=== PATIENT | female | born 1965 | race Caucasian/White ===

== ENCOUNTER 2022-07-19 08:49 | Outpatient (REF) | payer OTHER, SELFPAY ==
[2022-07-19 11:32] LABS: Hematocrit 42.4 % (37.0-47.0); Hemoglobin 13.7 g/dl (12.0-16.0); Mean Corpuscular HGB Conc 32.3 g/dl (31.0-35.0); Mean Corpuscular Hemoglobin 29.5 pg (27.0-33.0); Mean Corpuscular Volume 91.4 fL (80.0-98.0); Mean Platelet Volume 9.1 fL (9.4-12.3); Platelet Count 498 X10*3/uL (160-400); Red Blood Count 4.64 X10*6/uL (4.20-5.50); Red Cell Distribution Width 12.7 % (11.0-16.0); White Blood Count 7.6 X10*3/uL (4.8-10.8)
[2022-07-19 12:00] LABS: Alanine Aminotransferase 30 U/L (0-31); Albumin Level 4.5 g/dL (3.5-5.0); Alkaline Phosphatase 100 U/L (39-117); Anion Gap 16 (12-20); Aspartate Amino Transferase 24 U/L (5-31); Bilirubin Total 0.3 mg/dL (0.0-1.0); Blood Urea Nitrogen 13 mg/dL (9-16); Calcium 9.8 mg/dL (8.4-10.2); Carbon Dioxide 25 mmol/L (22-29); Chloride 104 mmol/L (96-108); Cholesterol 227 mg/dL; Estimated Glomerular Filt Rate > 60; Glucose Fasting 96 mg/dL (60-99); HDL Cholesterol 93 mg/dL; LDL Cholesterol Calculated 114 mg/dl; Magnesium 1.9 mg/dL (1.6-2.6); Phosphorus 3.4 mg/dL (2.7-4.5); Potassium 4.7 mmol/L (3.3-5.1); Sodium 140 mmol/L (135-145); Total Protein 7.4 g/dL (6.5-8.0); Triglycerides 102 mg/dL
[2022-07-19 12:03] LABS: TSH reflex Free T4 0.91 uIU/mL (0.32-4.0)
== END 2022-07-19 08:50 | disposition home or self-care (01) ==
LOC: HO.HMGCLDS 08:49
PROVIDERS: PCP Hospitalist; Visit Provider Hospitalist
DX: Z00.00 Encounter for general adult medical examination without abnormal findings (principal); K21.9 Gastro-esophageal reflux disease without esophagitis
CPT/HCPCS: 36415; 80053; 80061; 83735; 84100; 84443; 85027

== ENCOUNTER 2022-08-23 08:33 | Outpatient (REF) | payer OTHER, SELFPAY ==
[2022-08-23 11:22] LABS: Hematocrit 41.4 % (37.0-47.0); Mean Corpuscular HGB Conc 33.8 g/dl (31.0-35.0); Mean Corpuscular Volume 88.7 fL (80.0-98.0); Mean Platelet Volume 8.9 fL (9.4-12.3); Platelet Count 467 X10*3/uL (160-400); Red Blood Count 4.67 X10*6/uL (4.20-5.50); Red Cell Distribution Width 12.3 % (11.0-16.0); White Blood Count 6.4 X10*3/uL (4.8-10.8)
== END 2022-08-23 08:34 | disposition home or self-care (01) ==
LOC: HO.HMGCLDS 08:33
PROVIDERS: PCP Hospitalist; Visit Provider Hospitalist
DX: R79.89 Other specified abnormal findings of blood chemistry (principal)
CPT/HCPCS: 36415; 85027

== ENCOUNTER 2022-09-06 11:03 | Outpatient (REF) | payer OTHER, SELFPAY ==
[2022-09-06 13:59] LABS: MANUAL DIFF FLAG NO
[2022-09-06 14:08] LABS: Basophils Absolute Auto 0.1 X10*3/uL (0.0-0.2); Basophils Percent Auto 0.8 % (0-2); Eosinophils Absolute Auto 0.1 X10*3/uL (0.0-0.4); Eosinophils Percent Auto 1.6 % (0-4); Hematocrit 41.8 % (37.0-47.0); Hemoglobin 13.9 g/dl (12.0-16.0); Imm Gran Abs Auto 0.02 X10*3/uL (0.00-0.03); Imm Gran Pct Auto 0.3 % (0.0-0.4); Lymphocytes Absolute Auto 1.7 X10*3/uL (1.2-4.9); Lymphocytes Percent Auto 23.2 % (20-40); Mean Corpuscular HGB Conc 33.3 g/dl (31.0-35.0); Mean Corpuscular Hemoglobin 29.4 pg (27.0-33.0); Mean Corpuscular Volume 88.6 fL (80.0-98.0); Mean Platelet Volume 8.7 fL (9.4-12.3); Monocytes Absolute Auto 0.4 X10*3/uL (0.1-1.2); Monocytes Percent Auto 5.8 % (2-11); Neutrophils Absolute Auto 5.1 x10*3/uL (2.0-8.3); Neutrophils Percent Auto 68.3 % (45-73); Platelet Count 470 X10*3/uL (160-400); Red Blood Count 4.72 X10*6/uL (4.20-5.50); Red Cell Distribution Width 12.2 % (11.0-16.0); White Blood Count 7.4 X10*3/uL (4.8-10.8)
[2022-09-06 14:55] LABS: Anion Gap 15 (12-20); Blood Urea Nitrogen 7 mg/dL (9-16); Calcium 9.8 mg/dL (8.4-10.2); Carbon Dioxide 26 mmol/L (22-29); Chloride 99 mmol/L (96-108); Estimated Glomerular Filt Rate > 60; Glucose Random 90 mg/dL (60-115); Potassium 4.5 mmol/L (3.3-5.1); Sodium 135 mmol/L (135-145)
[2022-09-06 15:01] LABS: TSH reflex Free T4 0.67 uIU/mL (0.32-4.0)
== END 2022-09-06 11:04 | disposition home or self-care (01) ==
LOC: HO.WFDLDS 11:03
PROVIDERS: Visit Provider Family Medicine
DX: Z00.00 Encounter for general adult medical examination without abnormal findings (principal); R79.89 Other specified abnormal findings of blood chemistry
CPT/HCPCS: 36415; 80048; 84443; 85025

== ENCOUNTER 2022-11-20 10:55 | Outpatient (REF) | payer OTHER, SELFPAY ==
[2022-11-20 11:45] LABS: Baso%MD 1.1 %; Eos%MD 2.1 %; Hematocrit 40.2 % (37.0-47.0); Hemoglobin 13.5 g/dl (12.0-16.0); IG%MD 0.4 %; Lymph%MD 26.5 %; Mean Corpuscular HGB Conc 33.6 g/dl (31.0-35.0); Mean Corpuscular Hemoglobin 29.5 pg (27.0-33.0); Mean Platelet Volume 8.4 fL (9.4-12.3); Neut%MD 61.9 %; Platelet Count 429 X10*3/uL (160-400); Red Blood Count 4.57 X10*6/uL (4.20-5.50); Red Cell Distribution Width 13.1 % (11.0-16.0); White Blood Count 7.2 X10*3/uL (4.8-10.8)
[2022-11-20 12:26] LABS: Band Neutrophils Percent 0 % (3-5); Eosinophils Absolute Manual 0.2 X10*3/uL (0.0-0.4); Eosinophils Percent Manual 3 % (0-4); Lymphocytes Absolute Manual 1.6 X10*3/uL (1.2-4.9); Lymphocytes Percent Manual 22 % (20-40); Monocytes Absolute Manual 0.6 X10*3/uL (0.1-1.2); Monocytes Percent Manual 9 % (2-11); Neutrophils Absolute Manual 4.8 X10*3/uL (2.0-8.3); Neutrophils Percent Manual 66 % (45-73); Platelet Estimate NORMAL (NORMAL); Platelet Morphology Comment NORMAL; RBC Morphology NORMAL
== END 2022-11-20 10:56 | disposition home or self-care (01) ==
LOC: HO.LAB 10:55
PROVIDERS: PCP Family Medicine; Visit Provider Internal Medicine Medical Oncology
DX: D75.839 Thrombocytosis, unspecified (principal); R79.89 Other specified abnormal findings of blood chemistry
CPT/HCPCS: 36415; 81219; 81270; 81279; 81339; 85007; 85027

== ENCOUNTER 2022-11-28 09:39 | Outpatient (REF) | payer OTHER, SELFPAY ==
[2022-11-28 11:39] LABS: Appearance Urine Clear; Color Urine Yellow; Glucose Urine UA Negative (Negative); Leukocyte Esterase Urine Negative (Negative); Nitrite Urine Negative (Negative); Specific Gravity - Urine <= 1.005 (1.005-1.025); Urine Blood Negative (Negative); Urine Ketones Negative (Negative); Urine Protein Negative (Neg-Trace)
[2022-11-28 12:08] LABS: Creatinine Urine 30.16 mg/dL; Microalbum/Creatinine Ratio Ur 23.2 ug/mg cr
[2022-11-28 12:44] LABS: Alanine Aminotransferase 27 U/L (0-31); Albumin Level 4.4 g/dL (3.5-5.0); Alkaline Phosphatase 104 U/L (39-117); Anion Gap 13 (12-20); Aspartate Amino Transferase 22 U/L (5-31); Bilirubin Total 0.4 mg/dL (0.0-1.0); Blood Urea Nitrogen 8 mg/dL (9-16); Calcium 9.7 mg/dL (8.4-10.2); Carbon Dioxide 26 mmol/L (22-29); Chloride 98 mmol/L (96-108); Cholesterol 239 mg/dL; Estimated Glomerular Filt Rate > 60; Glucose Fasting 90 mg/dL (60-99); HDL Cholesterol 88 mg/dL; LDL Cholesterol Calculated 129 mg/dl; Potassium 4.9 mmol/L (3.3-5.1); Sodium 132 mmol/L (135-145); TSH reflex Free T4 0.75 uIU/mL (0.32-4.0); Total Protein 7.1 g/dL (6.5-8.0); Triglycerides 114 mg/dL
== END 2022-11-28 09:40 | disposition home or self-care (01) ==
LOC: HO.HMGCLDS 09:39
PROVIDERS: PCP Family Medicine; Visit Provider Family Medicine
DX: Z00.00 Encounter for general adult medical examination without abnormal findings (principal); I10 Essential (primary) hypertension
CPT/HCPCS: 36415; 80053; 80061; 81003; 82043; 84443

== ENCOUNTER 2022-12-13 11:26 | Outpatient (REF) | payer OTHER, SELFPAY ==
--- NOTE | ~2022-12-13 | MM_ITS ---
EXAMINATION: MM SCREENING DIGITAL BREAST TOMOSYNTHESIS, BILATERAL CLINICAL INFORMATION: Screening. Asymptomatic. The lifetime risk of breast cancer based on the Tyrer-Cuzick Model is 3.7%. COMPARISON: Mammography: May 18, 2017 and studies dating back to November 07, 2012 TECHNIQUE: Digital breast tomosynthesis is performed in both the craniocaudal and mediolateral oblique views along with computer-aided detection (CAD). Synthesized 2D images are generated from the tomosynthesis. FINDINGS: There are scattered areas of fibroglandular density (ACR BI-RADS breast composition Category b). There are no significant masses, abnormal calcifications, or other abnormalities. There is a stable retroareolar circumscribed left breast lesion. MM/MM tomosynthesis screening BI IMPRESSION: No significant changes from prior exam. ASSESSMENT: BI-RADS 1: Negative RECOMMENDATION: Routine annual mammography screening. This patient's information was entered into a reminder system with a target due date for their next mammogram.
== END 2022-12-13 11:27 | disposition home or self-care (01) ==
LOC: HO.MAMMO 11:26
PROVIDERS: PCP Family Medicine; Visit Provider Family Medicine
DX: Z12.31 Encounter for screening mammogram for malignant neoplasm of breast (principal)
CPT/HCPCS: 77063; 77067

== ENCOUNTER 2023-01-11 15:00 | Outpatient (REF) | payer OTHER, SELFPAY ==
[2023-01-11 15:14] LABS: MANUAL DIFF FLAG NO
[2023-01-11 15:28] LABS: Basophils Absolute Auto 0.1 X10*3/uL (0.0-0.2); Basophils Percent Auto 0.7 % (0-2); Eosinophils Absolute Auto 0.3 X10*3/uL (0.0-0.4); Eosinophils Percent Auto 2.3 % (0-4); Hematocrit 40.9 % (37.0-47.0); Hemoglobin 14.2 g/dl (12.0-16.0); Imm Gran Abs Auto 0.04 X10*3/uL (0.00-0.03); Imm Gran Pct Auto 0.4 % (0.0-0.4); Lymphocytes Absolute Auto 2.7 X10*3/uL (1.2-4.9); Lymphocytes Percent Auto 25.5 % (20-40); Mean Corpuscular HGB Conc 34.7 g/dl (31.0-35.0); Mean Corpuscular Hemoglobin 30.7 pg (27.0-33.0); Mean Corpuscular Volume 88.3 fL (80.0-98.0); Mean Platelet Volume 8.4 fL (9.4-12.3); Monocytes Absolute Auto 0.7 X10*3/uL (0.1-1.2); Monocytes Percent Auto 6.2 % (2-11); Neutrophils Absolute Auto 6.9 x10*3/uL (2.0-8.3); Neutrophils Percent Auto 64.9 % (45-73); Platelet Count 494 X10*3/uL (160-400); Red Blood Count 4.63 X10*6/uL (4.20-5.50); Red Cell Distribution Width 12.8 % (11.0-16.0); White Blood Count 10.7 X10*3/uL (4.8-10.8)
[2023-01-11 15:52] LABS: Alanine Aminotransferase 32 U/L (0-31); Albumin Level 4.6 g/dL (3.5-5.0); Alkaline Phosphatase 101 U/L (39-117); Anion Gap 19 (12-20); Aspartate Amino Transferase 24 U/L (5-31); Bilirubin Total 0.2 mg/dL (0.0-1.0); Blood Urea Nitrogen 10 mg/dL (9-16); Carbon Dioxide 23 mmol/L (22-29); Chloride 99 mmol/L (96-108); Estimated Glomerular Filt Rate > 60; Glucose Random 96 mg/dL (60-115); Potassium 4.8 mmol/L (3.3-5.1); Sodium 136 mmol/L (135-145); Total Protein 7.3 g/dL (6.5-8.0)
== END 2023-01-11 15:01 | disposition home or self-care (01) ==
LOC: HO.LAB 15:00
PROVIDERS: PCP Family Medicine; Visit Provider Internal Medicine Medical Oncology
DX: D75.839 Thrombocytosis, unspecified (principal)
CPT/HCPCS: 36415; 80053; 85025

== ENCOUNTER 2023-06-08 08:53 | Outpatient (AMB) | payer OTHER, SELFPAY ==
[2023-06-08 10:00] VITALS: BP 160/90; PULSE 95; TEMP 36.3; O2SAT 95; BMI 36.7
--- NOTE | 2023-06-08 10:00 | AM.OFFWIN_ITS ---
Intake Vital Signs 06/08/23 10:00 Height 5 ft Weight 188 lb BMI 36.7 BP 160/90 H Blood Pressure Location Lt brachial Position Sitting Pulse 95 Pulse Source Pulse Oximeter Temp 97.4 F Pulse Oximetry (%) 95 Oxygen Delivery Method Room Air Intake Visit Reasons: EP/Sinus, difficulty breathing (MASKED) Intake Note: pt is here today for EP/Sinus, difficulty breathing Patient Tobacco Use Status: Current everyday Tobacco user Allergies Seasonal Allergies Allergy (Severe, Verified 06/08/23 10:01) Itchy Eyes lisinopril Adverse Reaction (Severe, Verified 06/08/23 10:01) Cough pregabalin [From Lyrica] Adverse Reaction (Severe, Verified 06/08/23 10:01) Shortness of Breath celecoxib [From Celebrex] Adverse Reaction (Verified 06/08/23 10:01) Hypertension varenicline [From Chantix] Adverse Reaction (Verified 06/08/23 10:01) Depression Do you need a note to return to daycare/school/sports/work: No HPI HPI Comments History of Present Illness Details This is a 57-year-old female who presents to the office today for sick visit. Patient complaining of chest congestion, sinus pain/ pressure, and hudson ateral otalgia x5 days. Patient has been utilizing Robitussin DM so she has not been coughing much but feels as though she has a lot of congestion in her chest. She reports some mild difficulty breathing and some wheezing. [facility] Medical History Arthritis Back pain Generalized headaches GERD (gastroesophageal reflux disease) HTN (hypertension) Hyperlipidemia Hypersomnia Lyme disease Numbness and tingling of left leg Snoring TMJ (dislocation of temporomandibular joint) Tremors of nervous system Surgical History History of laparoscopy History of salpingo-oophorectomy Hx of arthroscopy Hx of cervical spine surgery Hx of colonoscopy Hx of endoscopy Hx of hysterectomy, total Hx of knee surgery Hx of shoulder surgery Hx of tubal ligation S/P cervical spinal fusion Family History Father Heart disease Cancer Prostate cancer Mother Dementia Congestive heart failure Social History (Reviewed 01/25/23 @ 14:06 by MATTY Smith Housing: House Alcohol intake: current Patient Tobacco Use Status: Current everyday Tobacco user Cigarettes Per Day: 3 e-Cigarette/Vaping Use: Never Used Second Hand Smoke Exposure: No service: No Current occupational status: disabled Current occupational exposures/hazards: No Cognitive needs: No Hearing needs: No Vision needs: No Review of Systems Const All systems reviewed & are unremarkable except as noted in HPI and below Reports no additional complaints Eyes Reports no additional complaints ENT Reports no additional complaints Card Reports no additional complaints Resp Reports no additional complaints GI Reports no additional complaints Reports no additional complaints Musc Reports no additional complaints Skin/Breast Reports system reviewed and no additional complaints, except as documented Neuro Reports no additional complaints Psych Reports no additional complaints Endo Reports no additional complaints Yaw/Lymph Reports no additional complaints Aller/Immun Reports no additional complaints Physical Exam Vital Signs: Last Vital Signs Temp 97.4 F 06/08/23 10:00 Pulse 95 06/08/23 10:00 BP 160/90 H 06/08/23 10:00 Pulse Ox 95 06/08/23 10:00 Oxygen Delivery Method Room Air 06/08/23 10:00 BMI result Body Mass Index 36.7 Const Other: Vital signs reviewed. Constitutional: Non-toxic appearing. No acute distress. Well-developed and well-nourished. HEENT: Normocephalic and atraumatic. Mild tympanic membrane bulging bilaterally but no erythema. External auditory canals without erythema or edema bilaterally. Moist mucous membranes. No pharyngeal erythema or exudates. Skin: Warm and dry. No rashes or lesions noted. Neck: Full and painless range of motion. No cervical lymphadenopathy. Cardio: Regular rate and rhythm. No murmurs, gallops, or rubs. No lower extremity edema. No JVD. Pulmonary: No respiratory distress. No accessory muscle usage. Scattered expiratory wheezing. Gastrointestinal: Soft, nontender, and nondistended in all 4 quadrants. Normoactive bowel sounds in all 4 quadrants. Genitourinary: No CVA tenderness. Musculoskeletal: Normal range of motion in joints throughout the body. No deformity or other signs of injury. Neuro: Alert and oriented x4. Cranial nerves 2-12 grossly intact. No focal deficits appreciated. Psych: Normal mood and affect. Assessment & Plan Assessment & Plan (1) Acute bronchitis: Code(s): J20.9 - Acute bronchitis, unspecified (2) Asthmatic bronchitis: Code(s): J45.909 - Unspecified asthma, uncomplicated (3) Viral URI: Code(s): J06.9 - Acute upper respiratory infection, unspecified Plan This is a 57-year-old female with history of asthma who presents to the office today complaining of chest congestion, sinus pain / pressure, and bilateral otalgia. On physical examination, patient has scattered expiratory wheezing but her physical exam is otherwise benign. Her vital signs are stable and she is overall nontoxic appearing. History and physical most consistent with acute asthmatic bronchitis in the setting of viral URI. Patient was given albuterol nebulizer in the office given expiratory wheezing. She was sent home on p.o. prednisone 40 mg daily x5 days as well as p.o. azithromycin 500 mg today followed by 250 mg daily x4 days. Patient was also given a prescription for Pulmicort Flexhaler as her insurance is not currently covering her Flovent inhaler and she was unable to get in contact with her primary care physician to switch this prescription. Patient was advised to follow-up here or proceed directly to the emergency room if she were to develop worsening /persistent symptoms such as fever/chills, shortness of breath, or worsening cough with sputum production. Patient verbalized understanding and is agreeable with the plan. Orders: Orders AMB Nebulizer Treatment Today J20.9 - Acute bronchitis, unspecified Medications: New azithromycin For 250 mg dose pack: take 500 mg today (day 1), then 250 mg for 4 days (days 2-5) PO 6 tabs 0RF budesonide 90 mcg/actuation (Pulmicort Flexhaler) 1 inh inhalation BID 1 ea 0RF albuterol sulfate 2.5 mg (3 mL) inhalation ONCE 3 mL 0RF J20.9 - Acute bronchitis, unspecified prednisone 40 mg (2 x 20 mg) PO DAILY 10 tabs 0RF Coding Level of Care Code Est Pt Level 3 (63764) Diagnoses Acute bronchitis J20.9 Asthmatic bronchitis J45.909 Viral URI J06.9
== END 2023-06-08 12:09 | disposition home or self-care (01) ==
PROVIDERS: PCP Family Medicine; Visit Provider Physician Assistant Medical
DX: J20.9 Acute bronchitis, unspecified (principal); J45.909 Unspecified asthma, uncomplicated; J06.9 Acute upper respiratory infection, unspecified
CPT/HCPCS: 94640; 99213; J7613

== ENCOUNTER 2023-06-11 08:48 | Outpatient (AMB) | payer OTHER, SELFPAY ==
--- NOTE | 2023-06-11 09:06 | MHC.OFFWIV ---
Intake Vital Signs 06/11/23 09:07 Height 5 ft Weight 85.275 kg BMI 36.7 BP 140/90 H Blood Pressure Location Lt brachial Position Sitting Pulse 94 Pulse Source Pulse Oximeter Temp 97.7 F Temp Source Temporal Artery Scan Pulse Oximetry (%) 99 Oxygen Delivery Method Room Air Intake Visit Reasons: EP, cough, congestion, dizzy (masked) Intake Note: Triaged pt in waiting room. Reports she came to [place] Sunday and was diagnosed with Bronchitis- sent home on prednisone & zPack. No relief with medications or inhalers, feeling chest heaviness & tightness. Lips pink, skin warm and dry. Notable SOB, unable to complete sentence without taking a shallow breath. Patient Tobacco Use Status: Current everyday Tobacco user Allergies Seasonal Allergies Allergy (Severe, Verified 06/11/23 09:07) Itchy Eyes lisinopril Adverse Reaction (Severe, Verified 06/11/23 09:07) Cough pregabalin [From Lyrica] Adverse Reaction (Severe, Verified 06/11/23 09:07) Shortness of Breath celecoxib [From Celebrex] Adverse Reaction (Verified 06/11/23 09:07) Hypertension varenicline [From Chantix] Adverse Reaction (Verified 06/11/23 09:07) Depression Do you need a note to return to daycare/school/sports/work: Yes HPI EP, cough, congestion, dizzy (masked) HPI Details Patient presents continued cough, congestion and dizziness. It is she denies fever she does have some heaviness with breathing. She does not have any focal weakness she feels the room is spinning when she moves. She has not experienced any falls. She denies chest pain heart palpitations or near syncope. Denies nausea vomiting diarrhea. Again she denies any focal weakness. She has mild tremor but this is baseline in noted in her past medical history. She also notes her eye professional suggested being tested for Sjogren's syndrome as she was diagnosed with dry eye and has episodes of stomatitis. She was supposed to see a new PCP today however this appointment was delayed for some reason. [facility] Medical History Arthritis Back pain Generalized headaches GERD (gastroesophageal reflux disease) HTN (hypertension) Hyperlipidemia Hypersomnia Lyme disease Numbness and tingling of left leg Snoring TMJ (dislocation of temporomandibular joint) Tremors of nervous system Surgical History History of laparoscopy History of salpingo-oophorectomy Hx of arthroscopy Hx of cervical spine surgery Hx of colonoscopy Hx of endoscopy Hx of hysterectomy, total Hx of knee surgery Hx of shoulder surgery Hx of tubal ligation S/P cervical spinal fusion Family History Father Heart disease Cancer Prostate cancer Mother Dementia Congestive heart failure Social History Housing: House Alcohol intake: current Patient Tobacco Use Status: Current everyday Tobacco user Cigarettes Per Day: 3 e-Cigarette/Vaping Use: Never Used Second Hand Smoke Exposure: No service: No Current occupational status: disabled Current occupational exposures/hazards: No Cognitive needs: No Hearing needs: No Vision needs: No Review of Systems Const Reports as per HPI and Reports no additional complaints Eyes Reports no additional complaints ENT Reports no additional complaints and Reports as per HPI Card Reports as per HPI and Reports no additional complaints Resp Reports as per HPI and Reports no additional complaints GI Reports as per HPI and Reports no additional complaints Skin/Breast Denies lesions Neuro Reports no additional complaints and Reports as per HPI Physical Exam Vital Signs: Last Vital Signs Temp 97.7 F 06/11/23 09:07 Pulse 94 06/11/23 09:07 BP 140/90 H 06/11/23 09:07 Pulse Ox 99 06/11/23 09:07 Oxygen Delivery Method Room Air 06/11/23 09:07 BMI result Body Mass Index 36.7 Const General: cooperative, comfortable and no acute distress Orientation/consciousness: patient oriented x3 Limitations: other limitations (Ambulation is limited secondary to dizziness) HEENT Ears: external ears normal and TM's normal bilaterally General nose exam: Normal nasal mucous membranes and turbinates present Face and sinus: Yes sinuses nontender Mouth: Normal oral and palatal mucosa present Resp Effort & Inspection: normal respiratory effort and able to speak in complete sentences Auscultation: clear to auscultation bilaterally (Intermittent wheeze at times) Cardio Rate: regular rate Rhythm: regular rhythm Heart sounds: S1 normal heart sound present and S2 normal heart sound present Neuro General: patient oriented x3 Results Reviewed Results Reviewed: Chest x-ray contemporaneously read by me without acute finding. EKG reviewed by me without any abnormality. Assessment & Plan Assessment & Plan (1) Dyspnea: Code(s): R06.00 - Dyspnea, unspecified Qualifiers: Dyspnea type: unspecified Qualified Code(s): R06.00 - Dyspnea, unspecified Plan: Patient is able to speak in complete sentences O2 is 99% on room air she has albuterol at home she is on a Z-Mohan without evidence of pneumonia. (2) Dizziness: Code(s): R42 - Dizziness and giddiness Plan: Will start course of meclizine but now the sinus congestion has cleared somewhat she is on antibiotic as well as prednisone. Will check labs today as she does have a history of hyponatremia. Will call patient when results are available. Advised strict instructions if symptoms do not improve over the next 24 hours or worsen in any way she should be seen in the emergency department. Do not drive herself call 911 if severe. She notes her is home with her and is driving her today. (3) Cough: Code(s): R05.9 - Cough, unspecified Qualifiers: Cough type: acute Qualified Code(s): R05.1 - Acute cough Plan: Improving somewhat productive. (4) Dry eye syndrome: Code(s): H04.129 - Dry eye syndrome of unspecified lacrimal gland Qualifiers: Laterality: bilateral Qualified Code(s): H04.123 - Dry eye syndrome of bilateral lacrimal glands Plan: Of note her PCP appointment was delayed and her eye doctor suggested she be tested for Sjogrens syndrome due to dry eye and stomatitis. Will order lab today and f/u with PCP. Orders: Orders SARS-CoV2/FLU/RSV Today R06.00 - Dyspnea, unspecified XR chest 2V Today R06.00 - Dyspnea, unspecified Complete Blood Count Auto Diff Today R05.9 - Cough, unspecified, R06.00 - Dyspnea, unspecified, R42 - Dizziness and giddiness Comprehensive Met. Panel Today R05.9 - Cough, unspecified, R06.00 - Dyspnea, unspecified, R42 - Dizziness and giddiness Sjogren's Antibodies Today H04.129 - Dry eye syndrome of unspecified lacrimal gland Medications: New meclizine 25 mg PO BID PRN 14 tabs 0RF dizziness Coding Level of Care Code Est Pt Level 4 (08616) Diagnoses Dyspnea, unspecified type R06.00 Dyspnea type: unspecified Dizziness R42 Acute cough R05.1 Cough type: acute Dry eye syndrome of both eyes H04.123 Laterality: bilateral
[2023-06-11 09:07] VITALS: BP 140/90; PULSE 94; TEMP 36.5; O2SAT 99; BMI 36.7
== END 2023-06-11 10:46 | disposition home or self-care (01) ==
PROVIDERS: PCP Family Medicine; Visit Provider Physician Assistant
DX: R06.00 Dyspnea, unspecified (principal); R42 Dizziness and giddiness; R05.1 Acute cough; H04.123 Dry eye syndrome of bilateral lacrimal glands
CPT/HCPCS: 99214

== ENCOUNTER 2023-06-11 09:48 | Outpatient (REF) | payer OTHER, SELFPAY ==
--- NOTE | ~2023-06-11 | XR_ITS ---
EXAMINATION: XR CHEST CLINICAL INFORMATION: Dyspnea, unspecified COMPARISON: None available. TECHNIQUE: 2 views of the chest were obtained. FINDINGS: The lungs are well expanded. Possible minimal opacity in the lingula consistent with atelectasis and/or no pneumonia. No pleural effusion. There is slight elevation of the right hemidiaphragm. The cardiomediastinal silhouette is within normal limits. Partial visualization of left humeral head prosthesis and anterior plate and screws in the lower cervical spine. XR/XR chest 2V IMPRESSION: Minimal lingular atelectasis and/or pneumonia.
[2023-06-11 13:04] LABS: MANUAL DIFF FLAG NO
[2023-06-11 13:28] LABS: Basophils Absolute Auto 0.1 X10*3/uL (0.0-0.2); Basophils Percent Auto 0.9 % (0-2); Eosinophils Percent Auto 0.4 % (0-4); Hematocrit 41.9 % (37.0-47.0); Hemoglobin 14.5 g/dl (12.0-16.0); Imm Gran Abs Auto 0.06 X10*3/uL (0.00-0.03); Imm Gran Pct Auto 0.5 % (0.0-0.4); Lymphocytes Absolute Auto 1.8 X10*3/uL (1.2-4.9); Mean Corpuscular HGB Conc 34.6 g/dl (31.0-35.0); Mean Corpuscular Hemoglobin 30.6 pg (27.0-33.0); Mean Corpuscular Volume 88.4 fL (80.0-98.0); Mean Platelet Volume 8.7 fL (9.4-12.3); Monocytes Absolute Auto 0.5 X10*3/uL (0.1-1.2); Monocytes Percent Auto 4.2 % (2-11); Neutrophils Absolute Auto 8.9 x10*3/uL (2.0-8.3); Platelet Count 531 X10*3/uL (160-400); Red Blood Count 4.74 X10*6/uL (4.20-5.50); Red Cell Distribution Width 12.3 % (11.0-16.0); White Blood Count 11.4 X10*3/uL (4.8-10.8)
[2023-06-11 13:47] LABS: Alanine Aminotransferase 31 U/L (0-31); Albumin Level 4.6 g/dL (3.5-5.0); Alkaline Phosphatase 88 U/L (39-117); Anion Gap 18 (12-20); Aspartate Amino Transferase 22 U/L (5-31); Bilirubin Total 0.3 mg/dL (0.0-1.0); Blood Urea Nitrogen 7 mg/dL (9-16); Calcium 10.6 mg/dL (8.4-10.2); Carbon Dioxide 22 mmol/L (22-29); Chloride 96 mmol/L (96-108); Estimated Glomerular Filt Rate > 60; Glucose Random 89 mg/dL (60-115); Sodium 132 mmol/L (135-145); Total Protein 8.1 g/dL (6.5-8.0)
== END 2023-06-11 09:49 | disposition home or self-care (01) ==
LOC: HO.HMGCX 09:48
PROVIDERS: PCP Family Medicine; Visit Provider Physician Assistant
DX: R06.00 Dyspnea, unspecified (principal); R42 Dizziness and giddiness; R05.9 Cough, unspecified
CPT/HCPCS: 36415; 71046; 80053; 85025

== ENCOUNTER 2023-06-11 10:04 | Outpatient (REF) | payer OTHER, SELFPAY ==
[2023-06-11 14:19] LABS: Influenza A PCR NEGATIVE (Negative); Influenza B PCR NEGATIVE (Negative); Resp Syncy Virus RNA Qual PCR NEGATIVE (Negative); SARS COV2 PCR INHOUSE NEGATIVE (Negative)
== END 2023-06-11 10:05 | disposition home or self-care (01) ==
LOC: HO.LAB 10:04
PROVIDERS: Visit Provider Physician Assistant
DX: Z11.52 Encounter for screening for COVID-19 (principal); Z20.822 Contact with and (suspected) exposure to COVID-19; R06.00 Dyspnea, unspecified
CPT/HCPCS: 0241U

== ENCOUNTER 2023-07-03 10:21 | Outpatient (AMB) | payer OTHER, SELFPAY ==
--- NOTE | 2023-07-03 10:29 | MHC.PC.OV ---
Vital Signs 07/03/23 10:31 Height 5 ft Weight 186 lb 4 oz BMI 36.4 BP 134/74 Blood Pressure Location Lt brachial Position Sitting Pulse 84 Pulse Source Pulse Oximeter Pulse Oximetry (%) 98 Oxygen Delivery Method Room Air Intake Visit Reasons: [facility] / Dizziness Intake Note: Patient is here to follow up on dizziness, she could not breathe well, was seen at [facility] she was there 06/14, and Sat 06/16. Allergies Seasonal Allergies Allergy (Severe, Verified 07/03/23 10:32) Itchy Eyes lisinopril Adverse Reaction (Severe, Verified 07/03/23 10:32) Cough pregabalin [From Lyrica] Adverse Reaction (Severe, Verified 07/03/23 10:32) Shortness of Breath celecoxib [From Celebrex] Adverse Reaction (Verified 07/03/23 10:32) Hypertension varenicline [From Chantix] Adverse Reaction (Verified 07/03/23 10:32) Depression Tobacco use date assessed: 07/03/23 Dental Screening Dental Screen Date: 07/03/23 Did you have a dental visit in the last 12 months?: Yes Did you have a dental problem in the last 6 months where you did not have access to dental care?: No Was dental information given to patient?: Patient has dentist HPI [facility] / Dizziness HPI Details 57 y/o female presents to f/u [facility] visit for dizziness and shortness of breath. She reports she was seen at [facility] at 06/14 and 06/16. Chest x-ray had shown minimal lingular atelactasis and/or pneumonia. Pt has reports on ongoing reproducible chest pain. Pt has complaints of joint pain and would like to be referred to rheumatology. [facility] Medical History Arthritis Back pain Generalized headaches GERD (gastroesophageal reflux disease) HTN (hypertension) Hyperlipidemia Hypersomnia Lyme disease Numbness and tingling of left leg Snoring TMJ (dislocation of temporomandibular joint) Tremors of nervous system Surgical History History of laparoscopy History of salpingo-oophorectomy Hx of arthroscopy Hx of cervical spine surgery Hx of colonoscopy Hx of endoscopy Hx of hysterectomy, total Hx of knee surgery Hx of shoulder surgery Hx of tubal ligation S/P cervical spinal fusion Family History Father Heart disease Cancer Prostate cancer Mother Dementia Congestive heart failure Social History Housing: House Alcohol intake: current Patient Tobacco Use Status: Current everyday Tobacco user Cigarettes Per Day: 3 e-Cigarette/Vaping Use: Never Used Second Hand Smoke Exposure: No service: No Current occupational status: disabled Current occupational exposures/hazards: No Cognitive needs: No Hearing needs: No Vision needs: No Questionnaire Thrive Questionnaire Date Thrive assessed: 09/06/22 RAFAEL-7 AMB Questionnaire RAFAEL-7 Date RAFAEL - 7 assessed: 10/04/22 Source: Developed by Drs. Celso Blake, Sarah Abreu, Shravan Dominique and colleagues, with an educational allan from [employer]. Review of Systems Const Denies chills, Denies fatigue, Denies fever(s), Denies headache(s) and Denies weakness ENT Denies dizziness and Denies headache(s) Card Denies chest pain, Denies lightheadedness, Denies dyspnea and Denies other (Palpitations) Resp Reports cough, Denies dyspnea and Denies wheezing Musc Denies numbness and Denies tingling Neuro Denies dizziness, Denies headache(s), Denies numbness, Denies tingling, Denies paresthesias and Denies weakness Psych Denies anxiety and Denies depression Endo Denies fatigue Aller/Immun Denies wheezing Physical exam (Primary Care) Vital Signs: Last Vital Signs Pulse 84 07/03/23 10:31 BP 134/74 07/03/23 10:31 Pulse Ox 98 07/03/23 10:31 Oxygen Delivery Method Room Air 07/03/23 10:31 BMI result Body Mass Index 36.4 Tobacco/Smoking Status: Tobacco use Status Tobacco use date assessed 07/03/23 07/03/23 10:39 Patient Tobacco Use Status Current everyday Tobacco 07/03/23 10:31 e-Cigarette/Vaping Use Never Used 07/03/23 10:31 Thrive Assessment: Date of Thrive Assessment Date Thrive assessed 09/06/22 07/03/23 10:31 Const General: no acute distress and well developed Nutritional Appearance: well nourished Orientation/consciousness: patient oriented x3 [facility] Head: Yes normocephalic and Yes atraumatic Eyes General: appearance normal, both eyes and all related structures Pupils: Equal, round and reactive pupils present EOM: EOMs intact bilaterally Resp Effort & Inspection: normal respiratory effort Cardio Rate: regular rate Rhythm: regular rhythm Heart sounds: S1 normal heart sound present, S2 normal heart sound present, no gallops, no murmurs and no rubs Neuro General: patient oriented x3 and gait normal Cranial nerves: Yes Equal, round and reactive pupils present Psych Affect: normal affect Assessment and Plan Assessment & Plan (1) Shortness of breath: Code(s): R06.02 - Shortness of breath Plan: Shortness?of?breath?with?chronic?cough. Patient?has?a?history?of?asthma Will?try?read?prescribing?Wixela?and?if?she?can?get?this?she?will?hold?Pulmicort Use?albuterol?as?needed Referred?to?pulmonology (2) Costochondritis: Code(s): M94.0 - Chondrocostal junction syndrome [Tietze] Plan: Costochondritis?and?more?acutely?she?has?left?chest?wall?tenderness?to?palpation?and?pain.??This?is?reproducible. Likely?pulled?intercostal?muscles?secondary?to?cough Follow-up?with?[facility] I?gave?her?a?script?for?diclofenac (3) Chronic cough: Code(s): R05.3 - Chronic cough Plan: As?above,?I?have?referred?her?to?pulmonology (4) Dizziness: Code(s): R42 - Dizziness and giddiness Plan: This?does?not?seem?to?be?a?current?symptom.??Current?symptom (5) Polyarthralgia: Code(s): M25.50 - Pain in unspecified joint Plan: Polyarthralgia?and?history?of?arthritis.??Also?costochondritis. Checking?sed?rate?and?CRP. Patient?requests?referral?to?Rheumatology-referred Orders: Orders CRP High Sensitivity Today M19.90 - Unspecified osteoarthritis, unspecified site Comprehensive Met. Panel Today R06.02 - Shortness of breath Complete Blood Count Auto Diff Today R06.02 - Shortness of breath, Z00.00 - Encounter for general adult medical examination without abnormal findings Erythrocyte Sedimentation Rate Today M19.90 - Unspecified osteoarthritis, unspecified site Referrals Rheumatology Referral M19.90 - Unspecified osteoarthritis, unspecified site, M25.50 - Pain in unspecified joint, M94.0 - Chondrocostal junction syndrome [Tietze] Pulmonology Referral J45.909 - Unspecified asthma, uncomplicated, R05.3 - Chronic cough, R06.02 - Shortness of breath Medications: New diclofenac sodium 1% apply to single knee, ankle, foot; for foot includes sole/toes/top of foot 4 grams topical QID 30 days PRN 100 grams 2RF pain Refilled fluticasone propion-salmeterol 250-50 mcg/dose (Wixela Inhub) 1 inh inhalation Q12H 60 ea 1RF 30 days Coding Level of Care Code Est Pt Level 4 (70398) Diagnoses Shortness of breath R06.02 Costochondritis M94.0 Chronic cough R05.3 Dizziness R42 Polyarthralgia M25.50
[2023-07-03 10:31] VITALS: BP 134/74; PULSE 84; O2SAT 98; BMI 36.4
== END 2023-07-03 11:30 | disposition home or self-care (01) ==
PROVIDERS: PCP Family Medicine; Visit Provider Family Medicine
DX: R06.02 Shortness of breath (principal); M94.0 Chondrocostal junction syndrome [Tietze]; R05.3 Chronic cough; R42 Dizziness and giddiness; M25.50 Pain in unspecified joint
CPT/HCPCS: 99214

== ENCOUNTER 2023-07-03 11:38 | Outpatient (REF) | payer OTHER, SELFPAY ==
[2023-07-03 14:27] LABS: MANUAL DIFF FLAG NO
[2023-07-03 14:33] LABS: Basophils Absolute Auto 0.1 X10*3/uL (0.0-0.2); Basophils Percent Auto 1.2 % (0-2); Eosinophils Absolute Auto 0.3 X10*3/uL (0.0-0.4); Eosinophils Percent Auto 3.9 % (0-4); Hematocrit 41.6 % (37.0-47.0); Imm Gran Abs Auto 0.02 X10*3/uL (0.00-0.03); Imm Gran Pct Auto 0.3 % (0.0-0.4); Lymphocytes Absolute Auto 2.2 X10*3/uL (1.2-4.9); Lymphocytes Percent Auto 28.9 % (20-40); Mean Corpuscular HGB Conc 33.7 g/dl (31.0-35.0); Mean Corpuscular Hemoglobin 30.3 pg (27.0-33.0); Mean Platelet Volume 8.7 fL (9.4-12.3); Monocytes Absolute Auto 0.5 X10*3/uL (0.1-1.2); Monocytes Percent Auto 6.8 % (2-11); Neutrophils Absolute Auto 4.5 x10*3/uL (2.0-8.3); Neutrophils Percent Auto 58.9 % (45-73); Platelet Count 497 X10*3/uL (160-400); Red Blood Count 4.62 X10*6/uL (4.20-5.50); Red Cell Distribution Width 12.6 % (11.0-16.0); White Blood Count 7.7 X10*3/uL (4.8-10.8)
[2023-07-03 14:56] LABS: Alanine Aminotransferase 27 U/L (0-31); Albumin Level 4.6 g/dL (3.5-5.0); Alkaline Phosphatase 84 U/L (39-117); Anion Gap 14 (12-20); Aspartate Amino Transferase 24 U/L (5-31); Bilirubin Total 0.3 mg/dL (0.0-1.0); Blood Urea Nitrogen 7 mg/dL (9-16); Calcium 10.2 mg/dL (8.4-10.2); Carbon Dioxide 24 mmol/L (22-29); Chloride 103 mmol/L (96-108); Estimated Glomerular Filt Rate > 60; Glucose Random 85 mg/dL (60-115); Potassium 3.9 mmol/L (3.3-5.1); Sodium 137 mmol/L (135-145); Total Protein 7.9 g/dL (6.5-8.0)
[2023-07-03 15:14] LABS: Erythrocyte Sedimentation Rate 19 MM/HR (0-20)
[2023-07-05 18:44] LABS: Antibody to SS-A Antigen <1.0 NEG AI (<1.0 NEG); Antibody to SS-B Antigen <1.0 NEG AI (<1.0 NEG)
== END 2023-07-03 11:39 | disposition home or self-care (01) ==
LOC: HO.WFDLDS 11:38
PROVIDERS: Physician Assistant; Visit Provider Family Medicine
DX: Z00.00 Encounter for general adult medical examination without abnormal findings (principal); H04.129 Dry eye syndrome of unspecified lacrimal gland; R06.02 Shortness of breath; M19.90 Unspecified osteoarthritis, unspecified site
CPT/HCPCS: 36415; 80053; 85025; 85652; 86141; 86235

== ENCOUNTER 2023-07-16 09:27 | Outpatient (AMB) | payer OTHER, SELFPAY ==
[2023-07-16 09:31] VITALS: BP 116/64; PULSE 90; TEMP 36.1; O2SAT 98; BMI 36.5
--- NOTE | 2023-07-16 09:31 | MHC.OFFVIS ---
Intake Vital Signs 07/16/23 09:31 Height 5 ft Weight 186 lb 11.704 oz BMI 36.5 BP 116/64 Blood Pressure Location Rt brachial Position Sitting Pulse 90 Pulse Source Pulse Oximeter Temp 97 F Temp Source Skin Pulse Oximetry (%) 98 Oxygen Delivery Method Room Air Intake Visit Reasons: Pain in unspecified joint Intake Note: New patient internally referred for joint pain. 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 Would like a test done to r/o Sjogren's. Reports being at [facility] on 06/16/23, diagnosed with costochondritis. Automatic Folder Seamer Required: No Accompanied by: Self / Same As Patient Allergies Seasonal Allergies Allergy (Severe, Verified 07/16/23 09:35) Itchy Eyes lisinopril Adverse Reaction (Severe, Verified 07/16/23 09:35) Cough pregabalin [From Lyrica] Adverse Reaction (Severe, Verified 07/16/23 09:35) Shortness of Breath celecoxib [From Celebrex] Adverse Reaction (Verified 07/16/23 09:35) Hypertension varenicline [From Chantix] Adverse Reaction (Verified 07/16/23 09:35) Depression HPI HPI Comments History of Present Illness Details Mrs. Lety martin 56y/oF, here for evaluation of multiple joint pain. She is disabled since 2009 because of chronic pain, fatigue etc. She reports reports chronic back pain, headaches, fatigue, snoring, sleep problems and memory loss. She has had multiple surgeries to include cervical fusion, left shoulder surgery, TMJ, and left knee. She reports recent ER visit and being diagnosed with Costochondritis and will be visiting Physiotherapist for injections. She describes tinnitus which she thinks is related to her TMJ. She sees Dr Smith for cortisone injections She reports at least 1 hour of morning stiffness. The patient is a smoker who reports IBS, has heartburn and takes Omeprazole. She uses Restasis multiple times per day for dry, itchy eyes and has complains of dry mouth such that she has difficulty moistening dry foods and often need a sip to help. A recent test for Sjogren's antibodies was negative. She describes excessive fatigue. The Patient denies Raynaud's phenomenon, butterfly rash on face or other rashes; denies photosensitivity - getting sick or developing a rash from being out in the sun; denies blood or froth in urine; patient denies hx of SOB, chest pain that does not accompanies a cold or asthma flares. Patient denies hx of Carditis or Pleuritis. Patient denies any history of DVT/PE. Patient has two children and denies miscarriages. The patient reports never have had to take aspirin or a blood thinner during the successful pregnancies. Denies fevers of unknown origins, unexplained weight-loss or weight-gain. Denies: thinning hair or hair loss Denies:red burning eyes needing steroids to treat; she denies mouth sores or ulcers; nose bleed Denies blood or mucous in stool; nausea, vomiting and diarrhea. She denies difficulty in swallowing. Ms. Donaldson denies personal history of cancer. She follows with Hematology due to elevated platelets and white blood cells. [facility] Medical History Arthritis Back pain Generalized headaches GERD (gastroesophageal reflux disease) HTN (hypertension) Hyperlipidemia Hypersomnia Lyme disease Numbness and tingling of left leg Snoring TMJ (dislocation of temporomandibular joint) Tremors of nervous system Surgical History S/P cervical spinal fusion Hx of cervical spine surgery Hx of endoscopy Hx of colonoscopy History of salpingo-oophorectomy History of laparoscopy Hx of arthroscopy Hx of tubal ligation Hx of hysterectomy, total Hx of shoulder surgery Hx of knee surgery Family History Father Heart disease Cancer Prostate cancer Mother Dementia Congestive heart failure Social History Housing: House Alcohol intake: current Patient Tobacco Use Status: Current everyday Tobacco user Cigarettes Per Day: 3 e-Cigarette/Vaping Use: Never Used Second Hand Smoke Exposure: No service: No Current occupational status: disabled Current occupational exposures/hazards: No Cognitive needs: No Hearing needs: No Vision needs: No Female Reproductive History Menstrual Total pregnancies: 2 Review of Systems Const All systems reviewed & are unremarkable except as noted in HPI and below Physical Exam Vital Signs: Last Vital Signs Temp 97 F 07/16/23 09:31 Pulse 90 07/16/23 09:31 BP 116/64 07/16/23 09:31 Pulse Ox 98 07/16/23 09:31 Oxygen Delivery Method Room Air 07/16/23 09:31 BMI result Body Mass Index 36.5 APPEARANCE: Patient in no acute distress EYES no redness, pupils equal and reactive to light, eyelids normal EARS:? External ear normal, canal clear and tympanic membrane normal. NOSE/SINUS:? Airflow through both nares, no nasal discharge, no bleeding THROAT:? Oral mucosa dry, no ulcerations NECK:? No thyromegaly or masses, no adenopathy, trachea midline. HEART:? Regulrar rhythm, S1-S2 heard, no murmurs, rubs or gallops. LUNG:? Clear to percussion and auscultation ABD:? Normal bowel sounds, no organomegaly, masses or tenderness. EXTREMITIES:? No edema, no calf tenderness, normal peripheral pulses. NEURO:? Oriented and alert x3.? No focal weakness.? Reflexes symmetric.? Gait normal. SKIN:? There are no skin lesions evident. No objective signs of Raynaud's phenomenon. JOINT EXAM: Cervical Spine:.? decreased range of motion without pain; some tenderness. Thoracic Spine:.? No scoliosis.? Some tenderness on palpation. Lumbar Spine:.? Alignment normal.? Full range of motion without pain, some tenderness. Chest Wall:.? Mild tenderness on palpation of ribs circumferentially, and tenderness at the manubrium, but no swelling, increased warmth or erythema. Hands:.? Normal pain-free range of motion without tenderness, swelling, increased warmth or erythema. Able to make a full fist and has a good inbound telemarketer strength. Wrists:.? Normal pain-free range of motion without tenderness, swelling, increased warmth or erythema. Elbows:. Normal pain-free range of motion without tenderness, swelling, increased warmth or erythema. Shoulders:.?? Full range of motion with mild pain. Moderate tenderness on palpation, no weakness, swelling, increased warmth or erythema. Hips:.? Full range of motion mild pain and stiffness to lower lack. Hip bursa:.? Mild tenderness bilaterally Knees:.?? Normal pain-free range of motion without tenderness, swelling, increased warmth or erythema.? There is no effusion or crepitation Mild tenderness on palpation to lateral left knee Ankles:.? Normal pain-free range of motion without tenderness, swelling, increased warmth or erythema. Feet:.? Normal pain-free range of motion without tenderness, swelling, increased warmth or erythema. Tender points:? No tenderness to digital palpation at the occiput, lateral epicondyle, medial knees. There is tenderness to trapezius, second rib and gluteal area bilaterally. Results Reviewed Results Reviewed: Abnormal Labs on 07/03/2023 Platelet count 497 high who reduced from 01/24 on 06/11/2023 ESR 19 BUN 7 low High sensitive CRP 4.0 high Chest X-ray 06/11/2023 TECHNIQUE: 2 views of the chest were obtained. FINDINGS: The lungs are well expanded. Possible minimal opacity in the lingula consistent with atelectasis and/or no pneumonia. No pleural effusion. There is slight elevation of the right hemidiaphragm. The cardiomediastinal silhouette is within normal limits. Partial visualization of left humeral head prosthesis and anterior plate and screws in the lower cervical spine. XR/XR chest 2V IMPRESSION: Minimal lingular atelectasis and/or pneumonia. X-ray image of November and July 2008, March 2009 and MRI image of March 2008 shows multilevel cervical DJD. Mammogram 12/13/2022 No concerns for malignancy Assessment & Plan Assessment & Plan (1) Polyarthralgia: Code(s): M25.50 - Pain in unspecified joint (2) Costochondritis: Code(s): M94.0 - Chondrocostal junction syndrome [Tietze] (3) DDD (degenerative disc disease), cervical: Code(s): M50.30 - Other cervical disc degeneration, unspecified cervical region (4) Nicotine dependence: Code(s): F17.200 - Nicotine dependence, unspecified, uncomplicated Qualifiers: Nicotine product type: cigarettes Substance use status: uncomplicated Qualified Code(s): F17.210 - Nicotine dependence, cigarettes, uncomplicated Plan #PolyArthralgia/Costochondritis: Ms. Donaldson is a 57-year-old female here for evaluation of multiple joint pain and recent episode costochondritis. After initial review of her history, diagnostics, available imaging and physical exam, I do not see a clear presentation of an inflammatory or autoimmune joint pathology. Though patient has a history of lower back and neck pain, and recently costochondritis which could point to an axial spondyloarthropathy, she denies episodes of dactylitis, tender swollen joints, uveitis, rashes, UC or Crohn's, tendinitis, Achilles tendonitis, which can be see in the context of an AxSpa. Additionally, five years ago she had an episode of plantar fasciitis but this was her only episode and she cannot remember any precipitating factors. The Patient denies that her joint pain is improved whenever she is on prednisone. She has had episodes of elevated CRP but this is usually within the context of a known illness such as a respiratory infection. Her recent episode of costochondritis (05/2023) came on the heels of respiratory infection for which she was treated with antibiotics but had a residual chronic cough that she says kept her up at night. Since a severe chronic cough can cause costochondritis, it is also doubtful that this episode of costochondritis would be an an indication of her having an associated axial spondyloarthropathy. Notwithstanding, I think it is reasonable and in the patient's best interest, to evaluate further. I will order labs for further evaluation for HLAB27 and updated ESR/CRP and other Rheumatology values. Hematology ordered FRANCISCO (-ve) and RF (-ve) in September 2022 due to blood dyscrasias. If she has not seen physio therapist before the next visit in 2 weeks I will start her on a course of prednisone and evaluate for improvement. #Cervical DDD: Patient will continue to use Diclofenac for pain. #Smoker/Nicotine Dependence: Per patient she smokes 2-3 cigarettes per day. I discussed with patient the possible side effects of cigarette smoking to the body and if she were found to have an autoimmune joint disease, smoking is really not a desirable factor for effective treatment. I encouraged patient and she agrees that she will consult with her PCP to pursue cessation. I discussed at length with patient, that the plan of action. Orders: Orders Anti Extractable Nuclear Ag Today M25.50 - Pain in unspecified joint, M94.0 - Chondrocostal junction syndrome [Tietze] C Reactive Protein Today M25.50 - Pain in unspecified joint, M94.0 - Chondrocostal junction syndrome [Tietze] Erythrocyte Sedimentation Rate Today M25.50 - Pain in unspecified joint, M94.0 - Chondrocostal junction syndrome [Tietze] Hepatitis A,B,C Profile Today M25.50 - Pain in unspecified joint, M94.0 - Chondrocostal junction syndrome [Tietze] Aldolase Today M25.50 - Pain in unspecified joint, M94.0 - Chondrocostal junction syndrome [Tietze] FRANCISCO Reflex Titer and Pattern Today M25.50 - Pain in unspecified joint, M94.0 - Chondrocostal junction syndrome [Tietze] Vitamin D 25-OH (D2 and D3) Today M25.50 - Pain in unspecified joint, M94.0 - Chondrocostal junction syndrome [Tietze] Uric Acid Today M25.50 - Pain in unspecified joint, M94.0 - Chondrocostal junction syndrome [Tietze] T Spot TB Today M25.50 - Pain in unspecified joint, M94.0 - Chondrocostal junction syndrome [Tietze] Cyclic Citrullinated Peptide Today M25.50 - Pain in unspecified joint, M94.0 - Chondrocostal junction syndrome [Tietze] HLA B27 Today M25.50 - Pain in unspecified joint, M94.0 - Chondrocostal junction syndrome [Tietze] Creatine Kinase Total Today M25.50 - Pain in unspecified joint, M94.0 - Chondrocostal junction syndrome [Tietze] Coding Level of Care Code New Pt Level 4 (08626) Diagnoses Polyarthralgia M25.50 Costochondritis M94.0 DDD (degenerative disc disease), cervical M50.30 Cigarette nicotine dependence without complication F17.210 Nicotine product type: cigarettes Substance use status: uncomplicated
== END 2023-07-16 10:31 | disposition home or self-care (01) ==
PROVIDERS: PCP Family Medicine; Visit Provider Nurse Practitioner Family
DX: M25.50 Pain in unspecified joint (principal); M94.0 Chondrocostal junction syndrome [Tietze]; M50.30 Other cervical disc degeneration, unspecified cervical region; F17.210 Nicotine dependence, cigarettes, uncomplicated
CPT/HCPCS: 99204

== ENCOUNTER → 2023-07-16 09:27 | Outpatient (BNVA) | payer OTHER, SELFPAY | PROVIDERS: PCP Family Medicine; Visit Provider Nurse Practitioner Family ==

== ENCOUNTER 2023-07-16 10:44 | Outpatient (REF) | payer OTHER, SELFPAY ==
[2023-07-16 12:05] LABS: Erythrocyte Sedimentation Rate 19 MM/HR (0-20)
[2023-07-16 12:55] LABS: C Reactive Protein 0.31 mg/dL (< or = 0.50)
[2023-07-16 13:23] LABS: Uric Acid 4.1 mg/dL (2.4-5.7)
[2023-07-17 04:31] LABS: HBc Num1 0.09 S/CO (0.00-0.79); HBsAGNum1 0.29 S/CO (0.00-0.99); Hepatitis A Antibody IgM 0.27 Index (0-0.79); Hepatitis B Core Antibody Nonreactive (Nonreactive); Hepatitis B Surface Antigen Negative (Negative); ~HepC Num1 0.08 S/CO (0.00-0.79); ~Hepatitis A Antibody IgM Nonreactive (Nonreactive); ~Hepatitis B Surface Antibody NONREACTIVE (Nonreactive); ~Hepatitis C Antibody Nonreactive (Nonreactive)
[2023-07-17 13:38] LABS: Cyclic Citrullinated Peptide <16 UNITS
[2023-07-17 17:53] LABS: SM/Ribonucleoprotein Ab <1.0 NEG AI (<1.0 NEG); Smith Protein <1.0 NEG AI (<1.0 NEG)
[2023-07-18 21:04] LABS: HLA B27 Negative (Negative)
[2023-07-18 21:38] LABS: TS Negative Control Passed; TS Panel A 0; TS Panel B 1; TS Positive Control Passed; TSpotTB Negative (Negative)
[2023-07-19 14:17] LABS: Vitamin D 25-OH, D2 5 ng/mL; Vitamin D 25-OH, D3 39 ng/mL; Vitamin D 25-OH, Total 44 ng/mL (30-100)
[2023-07-20 08:18] LABS: Anti Nuclear Antibody Screen NEGATIVE (NEGATIVE)
[2023-07-22 07:39] LABS: Aldolase 3.7 U/L (<=8.1)
== END 2023-07-16 10:45 | disposition home or self-care (01) ==
LOC: HO.10HDL 10:44
PROVIDERS: Visit Provider Nurse Practitioner Family
DX: M94.0 Chondrocostal junction syndrome [Tietze] (principal); M25.50 Pain in unspecified joint; M45.A Non-radiographic axial spondyloarthritis
CPT/HCPCS: 36415; 82085; 82306; 82550; 84550; 85652; 86038; 86140; 86200; 86235; 86481; 86704; 86706; 86709; 86803; 86812; 87340

== ENCOUNTER 2023-07-27 14:11 | Outpatient (AMB) | payer OTHER, SELFPAY ==
[2023-07-27 14:15] VITALS: BP 138/72; PULSE 82; O2SAT 99; BMI 36.7
--- NOTE | 2023-07-27 14:15 | MHC.OFFVIS ---
Intake Vital Signs 07/27/23 14:15 Height 5 ft Weight 188 lb BMI 36.7 BP 138/72 Blood Pressure Location Rt brachial Position Sitting Pulse 82 Pulse Source Pulse Oximeter Pulse Oximetry (%) 99 Oxygen Delivery Method Room Air Intake Visit Reasons: chronic cough Agency Sales Director Required: No Market Development Director: Market Development Director offered & declined Accompanied by: Self / Same As Patient Allergies Seasonal Allergies Allergy (Severe, Verified 07/27/23 14:20) Itchy Eyes lisinopril Adverse Reaction (Severe, Verified 07/27/23 14:20) Cough pregabalin [From Lyrica] Adverse Reaction (Severe, Verified 07/27/23 14:20) Shortness of Breath celecoxib [From Celebrex] Adverse Reaction (Verified 07/27/23 14:20) Hypertension varenicline [From Chantix] Adverse Reaction (Verified 07/27/23 14:20) Depression Medication List - Last Reconciled 07/27/23 by Melia Schneider LPN albuterol sulfate 90 mcg/actuation 2 puffs inhalation Q6H PRN 30 days bupropion HCl 300 mg PO QAM 30 days buspirone 15 mg (1.5 x 10 mg) PO BID cyclobenzaprine 10 mg PO TID cyclosporine 0.05% (Restasis) 1 drp ophthalmic (eye) Q12H diclofenac sodium 1% 4 grams topical QID PRN 30 days diltiazem HCl ER (Tiadylt ER) 180 mg PO DAILY 90 days fluoxetine 40 mg (2 x 20 mg) PO DAILY 30 days fluticasone propion-salmeterol 250-50 mcg/dose (Wixela Inhub) 1 inh inhalation Q12H 30 days lorazepam (Ativan) 1 mg PO DAILY PRN meloxicam 15 mg PO DAILY omega 7-beo-bxe-fish oil 300-1,000 mg (Fish Oil) 1 cap PO DAILY omeprazole 20 mg PO DAILY propranolol 60 mg PO ONCE telmisartan 80 mg PO DAILY 90 days HPI chronic cough HPI Details Lety is a pleasant 57 year old female, less than 10 pack year history, currently smokes 1/4 ppd, with underlying history of asthma, diagnosed as an adult and GERD, controlled. She was referred for pulmonary evaluation by PCP for dyspnea with moderate exertion. She was suboptimally controlled on Flovent, using her albuterol MDI frequently. She was recently switched to Advair and reports significant improvements in dry cough and wheezing, no longer requiring albuterol. She notes her triggers are irritants and colds, otherwise no known allergic triggers. She denies any occupational exposures, currently disabled due to cervicalgia. She reports mother, smoker, with chronic bronchitis, otherwise no other pertinent family history. She also reports being treated for pneumonia less than 2 months ago, CXR from 06/11 revealed lingular atelectasis versus pneumonia. There is no imaging ordered to assess for resolution. Of note, she is under evaluation by rheumatology, Dr. Causey, as she may have some underlying autoimmune condition, as she reports dry eye, dry mouth, widespread joint pain. She also reports costochondritis bilaterally, which was evaluated by Dr. Smith, staff nurse midwife. [facility] Medical History Arthritis Back pain Generalized headaches GERD (gastroesophageal reflux disease) HTN (hypertension) Hyperlipidemia Hypersomnia Lyme disease Numbness and tingling of left leg Snoring TMJ (dislocation of temporomandibular joint) Tremors of nervous system Surgical History S/P cervical spinal fusion Hx of cervical spine surgery Hx of endoscopy Hx of colonoscopy History of salpingo-oophorectomy History of laparoscopy Hx of arthroscopy Hx of tubal ligation Hx of hysterectomy, total Hx of shoulder surgery Hx of knee surgery Family History Father Heart disease Cancer Prostate cancer Mother Dementia Congestive heart failure Social History Housing: House Alcohol intake: current Patient Tobacco Use Status: Current everyday Tobacco user Cigarettes Per Day: 2 e-Cigarette/Vaping Use: Never Used Second Hand Smoke Exposure: No service: No Current occupational status: disabled Current occupational exposures/hazards: No Cognitive needs: No Hearing needs: No Vision needs: No Review of Systems Const Denies chills, Denies excessive sweating, Denies fever(s), Denies headache(s) and Denies night sweats Eyes Denies itchy eyes ENT Reports Normal hearing present, Denies headache(s), Denies nasal congestion, Denies nasal discharge, Denies post nasal drip and Denies sore throat Card Denies chest pain, Denies chest pain at rest, Denies chest pain with activity, Denies claudication, Denies leg edema, Denies dyspnea, Denies orthopnea and Denies paroxysmal nocturnal dyspnea Resp Denies chest congestion, Denies excessive phlegm production, Denies pain on inspiration, Denies pain with cough, Denies dyspnea and Denies stridor Neuro Reports Normal hearing present and Denies headache(s) Endo Denies excessive sweating Yaw/Lymph Denies lymphadenopathy Aller/Immun Denies itchy eyes and Denies seasonal rhinorrhea Physical Exam Vital Signs: Last Vital Signs Pulse 82 07/27/23 14:15 BP 138/72 07/27/23 14:15 Pulse Ox 99 07/27/23 14:15 Oxygen Delivery Method Room Air 07/27/23 14:15 BMI result Body Mass Index 36.7 Const General: cooperative, healthy appearing, comfortable, no acute distress, well developed and alert Nutritional Appearance: obese Orientation/consciousness: patient oriented x3 Limitations: no limitations HEENT Head: Yes normal to inspection, Yes normocephalic and Yes atraumatic Ears: hearing grossly normal bilaterally and external ears normal Eyes General: appearance normal, both eyes and all related structures Eyelids: Yes eyelids normal Sclerae: sclerae normal EOM: EOMs intact bilaterally Neck Neck: Yes normal visual inspection and Yes no lymphadenopathy Lymphatic: no lymphadenopathy noted Chest Chest palpation & inspection: normal inspection of the chest Resp Effort & Inspection: normal respiratory effort, able to speak in complete sentences, no audible wheezes, no cough, no stridor, not tachypneic, no tripod positioning and no use of accessory muscles Auscultation: clear to auscultation bilaterally Cardio Jugular venous distension: no JVD Rate: regular rate Rhythm: regular rhythm Skin Other: warm, dry General skin exam: no rashes or lesions noted Neuro General: patient oriented x3 Cranial nerves: Yes Normal hearing present Cognition (Neuro): normal cognition Gait exam (Neuro): Normal gait present Extrem General: Yes normal to inspection, Yes capillary refill normal, Yes no clubbing, cyanosis or edema and Yes no pedal edema Psych Appearance: grossly normal and well kempt Speech and movement: Normal speech and movement present and Clear speech present Affect: normal affect Attitude: cooperative Thought process: Normal thought process present Thought content: Normal thought content present Insight: Good insight present (Psych) Judgement: Good judgement present (Psych) Results Reviewed Results Reviewed: [facility] [place] [facility] [place] [id number] XRay Report Signed Patient: Lety Chi MR#: [id number] : 1965 Acct:[id number] Age/Sex: 57 / F ADM Date: 06/11/23 [facility]: [facility] Attending Dr: Loils GONZALES Ordering Physician: Lolis Phillip Date of Service: 06/11/23 Procedure(s): XR chest 2V Accession Number(s): [id number] cc: Amrik Mendoza MD; Lolis Phillip~ EXAMINATION: XR CHEST CLINICAL INFORMATION: Dyspnea, unspecified COMPARISON: None available. TECHNIQUE: 2 views of the chest were obtained. FINDINGS: The lungs are well expanded. Possible minimal opacity in the lingula consistent with atelectasis and/or no pneumonia. No pleural effusion. There is slight elevation of the right hemidiaphragm. The cardiomediastinal silhouette is within normal limits. Partial visualization of left humeral head prosthesis and anterior plate and screws in the lower cervical spine. XR/XR chest 2V IMPRESSION: Minimal lingular atelectasis and/or pneumonia. Dictated By: Cherri Bell MD Signed By: <Electronically signed by Cherri Bell MD in OV> Assessment & Plan Assessment & Plan (1) Asthma: Code(s): J45.909 - Unspecified asthma, uncomplicated (2) Shortness of breath: Code(s): R06.02 - Shortness of breath (3) GERD (gastroesophageal reflux disease): Code(s): K21.9 - Gastro-esophageal reflux disease without esophagitis (4) Cough: Code(s): R05.9 - Cough, unspecified (5) Personal history of tobacco use: Code(s): Z87.891 - Personal history of nicotine dependence (6) Obesity (BMI 30-39.9): Code(s): E66.9 - Obesity, unspecified Plan Lety's symptoms are likely related to poorly controlled asthma. Will send for PFT to evaluate. Will also send for chest CT to assess for resolution of pneumonia as well as assess for other etiologies of dyspnea and cough. Advised to continue on Advair. All questions were answered and patient is in agreement of plan. Will follow up to review CT chest and PFT results or sooner if needed. Orders: Orders PFT pulmonary function test Today J45.909 - Unspecified asthma, uncomplicated CT chest wo IV con Today R05.9 - Cough, unspecified, R06.02 - Shortness of breath Coding Level of Care Code New Pt Level 4 (21575) Diagnoses Asthma J45.909 Shortness of breath R06.02 GERD (gastroesophageal reflux disease) K21.9 Cough R05.9 Personal history of tobacco use Z87.891 Obesity (BMI 30-39.9) E66.9
== END 2023-07-27 14:53 | disposition home or self-care (01) ==
PROVIDERS: PCP Family Medicine; Visit Provider Nurse Practitioner Family
DX: J45.909 Unspecified asthma, uncomplicated (principal); R06.02 Shortness of breath; K21.9 Gastro-esophageal reflux disease without esophagitis; R05.9 Cough, unspecified; Z87.891 Personal history of nicotine dependence; E66.9 Obesity, unspecified
CPT/HCPCS: 99204

== ENCOUNTER → 2023-07-27 14:11 | Outpatient (BNVA) | payer OTHER, SELFPAY | PROVIDERS: PCP Family Medicine; Visit Provider Nurse Practitioner Family ==

== ENCOUNTER 2023-07-30 09:43 | Outpatient (AMB) | payer OTHER, SELFPAY ==
[2023-07-30 10:01] VITALS: BP 124/70; PULSE 77; TEMP 36.3; O2SAT 95; BMI 36.6
--- NOTE | 2023-07-30 10:01 | A.OFFVIS_ITS ---
Intake Vital Signs 07/30/23 10:01 Height 5 ft Weight 187 lb 6.287 oz BMI 36.6 BP 124/70 Blood Pressure Location Rt brachial Position Sitting Pulse 77 Pulse Source Pulse Oximeter Temp 97.4 F Temp Source Skin Pulse Oximetry (%) 95 Oxygen Delivery Method Room Air Intake Visit Reasons: Inflammary Back Pain Intake Note: Patient presents today to follow up on back pain. Last seen by Padilla on 07/16/23. Reports starting Meloxicam prescribed by Dr. Smith, manager green. States it helps on and off. Insurance did not cover Lidocaine patch prescribed by Dr. Smith. Photographic Editor Required: No Accompanied by: Self / Same As Patient Allergies Seasonal Allergies Allergy (Severe, Verified 07/27/23 14:20) Itchy Eyes lisinopril Adverse Reaction (Severe, Verified 07/27/23 14:20) Cough pregabalin [From Lyrica] Adverse Reaction (Severe, Verified 07/27/23 14:20) Shortness of Breath celecoxib [From Celebrex] Adverse Reaction (Verified 07/27/23 14:20) Hypertension varenicline [From Chantix] Adverse Reaction (Verified 07/27/23 14:20) Depression HPI HPI Comments History of Present Illness Details Mrs. Lety martin 56y/oF, here for follow-up of her initial evaluation of multiple joint pain. She reports that the costochondritis is improving as her cough resolves. She has seen the scada technician who has ordered repeat Chest CT and PFTs. Ms. Dupree reports chest tightness that she feels is worsened today due to the weather. She inquired about a nerve stimulator and will speak her manager green and neurologist about it. Prior Visit Mrs. Lety martin 56y/oF, here for evaluation of multiple joint pain. She is disabled since 2009 because of chronic pain, fatigue etc. She reports reports chronic back pain, headaches, fatigue, snoring, sleep problems and memory loss. She has had multiple surgeries to include cervical fusion, left shoulder surgery, TMJ, and left knee. She reports recent ER visit and being diagnosed with Costochondritis and will be visiting Physiotherapist for injections. She describes tinnitus which she thinks is related to her TMJ. She sees Dr Smith for cortisone injections She reports at least 1 hour of morning stiffness. The patient is a smoker who reports IBS, has heartburn and takes Omeprazole. She uses Restasis multiple times per day for dry, itchy eyes and has complains of dry mouth such that she has difficulty moistening dry foods and often need a sip to help. A recent test for Sjogren's antibodies was negative. She describes excessive fatigue. The Patient denies Raynaud's phenomenon, butterfly rash on face or other rashes; denies photosensitivity - getting sick or developing a rash from being out in the sun; denies blood or froth in urine; patient denies hx of SOB, chest pain that does not accompanies a cold or asthma flares. Patient denies hx of Carditis or Pleuritis. Patient denies any history of DVT/PE. Patient has two children and denies miscarriages. The patient reports never have had to take aspirin or a blood thinner during the successful pregnancies. Denies fevers of unknown origins, unexplained weight-loss or weight-gain. Denies: thinning hair or hair loss Denies:red burning eyes needing steroids to treat; she denies mouth sores or ulcers; nose bleed Denies blood or mucous in stool; nausea, vomiting and diarrhea. She denies difficulty in swallowing. Ms. Donaldson denies personal history of cancer. She follows with Hematology due to elevated platelets and white blood cells. FOR[facility]LY [facility] Medical History Arthritis Back pain Generalized headaches GERD (gastroesophageal reflux disease) HTN (hypertension) Hyperlipidemia Hypersomnia Lyme disease Numbness and tingling of left leg Snoring TMJ (dislocation of temporomandibular joint) Tremors of nervous system Surgical History S/P cervical spinal fusion Hx of cervical spine surgery Hx of endoscopy Hx of colonoscopy History of salpingo-oophorectomy History of laparoscopy Hx of arthroscopy Hx of tubal ligation Hx of hysterectomy, total Hx of shoulder surgery Hx of knee surgery Family History Father Heart disease Cancer Prostate cancer Mother Dementia Congestive heart failure Social History Housing: House Alcohol intake: current Patient Tobacco Use Status: Current everyday Tobacco user Cigarettes Per Day: 2 e-Cigarette/Vaping Use: Never Used Second Hand Smoke Exposure: No service: No Current occupational status: disabled Current occupational exposures/hazards: No Cognitive needs: No Hearing needs: No Vision needs: No Review of Systems Const All systems reviewed & are unremarkable except as noted in HPI and below Physical Exam Vital Signs: Last Vital Signs Temp 97.4 F 07/30/23 10:01 Pulse 77 07/30/23 10:01 BP 124/70 07/30/23 10:01 Pulse Ox 95 07/30/23 10:01 Oxygen Delivery Method Room Air 07/30/23 10:01 BMI result Body Mass Index 36.6 APPEARANCE: Patient in no acute distress, groomed, nourished EYES no redness, pupils equal and reactive to light, eyelids normal NECK:? No thyromegaly or masses, no adenopathy, trachea midline. HEART:? Regulrar rhythm, S1-S2 heard, no murmurs, rubs or gallops. LUNG:? Clear to percussion and auscultation EXTREMITIES:? No edema, no calf tenderness, normal peripheral pulses. NEURO:? Oriented and alert x3.? No focal weakness.? Reflexes symmetric.? Gait normal. SKIN:? There are no skin lesions evident. No objective signs of Raynaud's phenomenon. Results Reviewed Results Reviewed: Laboratory Tests 07/03/23 07/16/23 11:42 10:50 Plt Count 497 H MPV 8.7 L ESR 19 Uric Acid 4.1 Total Creatine Kinase 65 C-Reactive Protein 0.31 Cycl Citrul Peptide IgG <16 Assessment & Plan Assessment & Plan (1) Costochondritis: Code(s): M94.0 - Chondrocostal junction syndrome [Tietze] (2) Polyarthralgia: Code(s): M25.50 - Pain in unspecified joint (3) DDD (degenerative disc disease), cervical: Code(s): M50.30 - Other cervical disc degeneration, unspecified cervical region Plan #PolyArthralgia/Costochondritis: Ms. Donaldson is a 57-year-old female here for follow-up to initial evaluation of multiple joint pain and recent episode costochondritis. After review of her history, diagnostics, available imaging and physical exam, I do not see a clear presentation of an inflammatory or autoimmune joint pathology. The additional labs that were ordered for also unrevealing. I think it is reasonable to conclude that her episodes of costochondritis is related to chronic cough as a result of her reactive airway disease. Per pulmonary records and recent pulmonary visit patient has been is uncontrolled. They will obtain follow-up CT to reassess if her pneumoniae is resolved. The patient denies that she was given prednisone I will offer her a course of prednisone at this time. Discussed with patient's the short-term side effects of prednisone to include but not limited to insomnia and increased appetite. #Cervical DDD: Patient will continue to use Diclofenac for pain. #Smoker/Nicotine Dependence: Per patient she smokes 2-3 cigarettes per day. The prolonged unresolution of her asthma exacerbation and frequent respiratory relapses could also be consequence of nicotine dependence I encouraged patient and she agrees that she will consult with her PCP to pursue cessation. #Lifestyle changes: In general, I think patient would benefit from improved nutrition and light exercises; we discussed how she can incorporate these things in her day-to-day. I will see her in 1 month to reassess if prednisone was helpful to improve her cough and brief tenderness. Medications: New prednisone 3 tablets x 7 days, 2 tablets x 7 days, 1 tablet x 7 days. 70 tabs 0RF M94.0 - Chondrocostal junction syndrome [Tietze] prednisone 3 tablets x 7 days, 2 tablets x 7 days, 1 tablet x 7 days. 50 tabs 0RF M94.0 - Chondrocostal junction syndrome [Tietze] Coding Level of Care Code Est Pt Level 3 (32439) Diagnoses Costochondritis M94.0 Polyarthralgia M25.50 DDD (degenerative disc disease), cervical M50.30
== END 2023-07-30 10:41 | disposition home or self-care (01) ==
PROVIDERS: PCP Family Medicine; Visit Provider Nurse Practitioner Family
DX: M94.0 Chondrocostal junction syndrome [Tietze] (principal); M25.50 Pain in unspecified joint; M50.30 Other cervical disc degeneration, unspecified cervical region
CPT/HCPCS: 99213

== ENCOUNTER → 2023-07-30 09:43 | Outpatient (BNVA) | payer OTHER, SELFPAY | PROVIDERS: PCP Family Medicine; Visit Provider Nurse Practitioner Family ==

== ENCOUNTER 2023-08-14 10:31 | Outpatient (AMB) | payer OTHER, SELFPAY ==
[2023-08-14 10:39] VITALS: BP 124/78; PULSE 77; RESP 14; TEMP 36.4; O2SAT 99; BMI 36.2
--- NOTE | 2023-08-14 10:39 | A.OFFPC_ITS ---
Vital Signs 08/14/23 10:39 Height 5 ft Weight 185 lb 4 oz BMI 36.2 BP 124/78 Blood Pressure Location Rt brachial Position Sitting Respiration 14 Pulse 77 Pulse Source Pulse Oximeter Temp 97.6 F Temp Source Temporal Artery Scan Pulse Oximetry (%) 99 Oxygen Delivery Method Room Air Intake Visit Reasons: f/u shortness of breath/asthma Intake Note: Follow-up SOB & Chest pain Operator Prefinish Required: No Accompanied by: Self / Same As Patient Allergies Seasonal Allergies Allergy (Severe, Verified 08/14/23 10:47) Itchy Eyes lisinopril Adverse Reaction (Severe, Verified 08/14/23 10:47) Cough pregabalin [From Lyrica] Adverse Reaction (Severe, Verified 08/14/23 10:47) Shortness of Breath celecoxib [From Celebrex] Adverse Reaction (Verified 08/14/23 10:47) Hypertension varenicline [From Chantix] Adverse Reaction (Verified 08/14/23 10:47) Depression Tobacco use date assessed: 07/03/23 Dental Screening Dental Screen Date: 08/14/23 Did you have a dental visit in the last 12 months?: Yes Did you have a dental problem in the last 6 months where you did not have access to dental care?: No Was dental information given to patient?: Patient has dentist HPI f/u shortness of breath/asthma HPI Details 57 y/o female presents to f/u shortness of breath/asthma. PFSH Medical History Numbness and tingling of left leg Tremors of nervous system TMJ (dislocation of temporomandibular joint) Lyme disease Hypersomnia Snoring Hyperlipidemia HTN (hypertension) GERD (gastroesophageal reflux disease) Generalized headaches Back pain Arthritis Surgical History S/P cervical spinal fusion Hx of cervical spine surgery Hx of endoscopy Hx of colonoscopy History of salpingo-oophorectomy History of laparoscopy Hx of arthroscopy Hx of tubal ligation Hx of hysterectomy, total Hx of shoulder surgery Hx of knee surgery Family History Father Heart disease Cancer Prostate cancer Mother Dementia Congestive heart failure Social History Housing: House Alcohol intake: current Patient Tobacco Use Status: Current everyday Tobacco user Cigarettes Per Day: 2 Years Smoked: 26 e-Cigarette/Vaping Use: Never Used Second Hand Smoke Exposure: No service: No Current occupational status: disabled Current occupational exposures/hazards: No Cognitive needs: No Hearing needs: No Vision needs: No Questionnaire Thrive Questionnaire Date Thrive assessed: 09/06/22 RAFAEL-7 AMB Questionnaire RAFAEL-7 Date RAFAEL - 7 assessed: 10/04/22 Source: Developed by Drs. Celso Blake, Sarah Abreu, Shravan Dominique and colleagues, with an educational allan from [employer]. ACT Questionnaire In the past 4 weeks, how much of the time did your asthma keep you from getting as much done at work, school or at home?: A little of the time During the past 4 weeks, how often have you had shortness of breath?: 1-2 times a week During the past 4 weeks, how often did your asthma symptoms wake you up at night or earlier than usual in the morning?: Once a week During the past 4 weeks, how often have you had to use your rescue inhaler or nebulizer medication?: Once a week or less How would you rate your asthma control during the past 4 weeks?: Well controlled ACT Interpretation: Positive Score: 19 Review of Systems Const Denies chills, Denies fatigue, Denies fever(s), Denies headache(s) and Denies weakness ENT Denies dizziness and Denies headache(s) Card Denies dyspnea Resp Denies cough, Denies dyspnea, Denies wheezing and Denies other (shortness of breath) Musc Denies numbness and Denies tingling Neuro Denies dizziness, Denies headache(s), Denies numbness, Denies tingling and Denies weakness Psych Denies anxiety and Denies depression Endo Denies fatigue Aller/Immun Denies wheezing Physical exam (Primary Care) Vital Signs: Last Vital Signs Temp 97.6 F 08/14/23 10:39 Pulse 77 08/14/23 10:39 Resp 14 08/14/23 10:39 BP 124/78 08/14/23 10:39 Pulse Ox 99 08/14/23 10:39 Oxygen Delivery Method Room Air 08/14/23 10:39 BMI result Body Mass Index 36.2 Tobacco/Smoking Status: Tobacco use Status Tobacco use date assessed 07/03/23 08/14/23 10:50 Patient Tobacco Use Status Current everyday Tobacco 08/14/23 10:50 e-Cigarette/Vaping Use Never Used 08/14/23 10:50 Thrive Assessment: Date of Thrive Assessment Date Thrive assessed 09/06/22 08/14/23 10:50 Const General: well developed; No acute distress Nutritional Appearance: well nourished Orientation/consciousness: patient oriented x3 HENMT Head: Yes normocephalic and Yes atraumatic Eyes General: appearance normal, both eyes and all related structures Pupils: Equal, round and reactive pupils present EOM: EOMs intact bilaterally Resp Effort & Inspection: normal respiratory effort Neuro General: patient oriented x3 and gait normal Cranial nerves: Yes Equal, round and reactive pupils present Psych Affect: normal affect Assessment and Plan Assessment & Plan (1) Shortness of breath: Code(s): R06.02 - Shortness of breath Plan: Still?has?ongoing?shortness?of?breath?though?slightly?i mproved?with?the?prednisone?she?has?been?prescribed?by?Rheumatology?for?costocho ndritis She?also?notes?that?she?has?triggers?such?as?environmental?exposures Will?trial?Singulair She?has?an?appointment?with?Pulmonary?and?has?a?CT?scan?and?PFTs?scheduled (2) Asthma: Code(s): J45.909 - Unspecified asthma, uncomplicated Plan: As?above (3) Costochondritis: Code(s): M94.0 - Chondrocostal junction syndrome [Tietze] Plan: She?has?reproducible?chest?wall?pain Recent?EKG?in?May?was?normal She?notes?that?prednisone?and?meloxicam?help?and?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
== END 2023-08-14 11:44 | disposition home or self-care (01) ==
PROVIDERS: PCP Family Medicine; Visit Provider Family Medicine
DX: R06.02 Shortness of breath (principal); J45.909 Unspecified asthma, uncomplicated; M94.0 Chondrocostal junction syndrome [Tietze]
CPT/HCPCS: 99213

== ENCOUNTER 2023-08-28 08:25 | Outpatient (AMB) | payer OTHER, SELFPAY ==
--- NOTE | 2023-08-28 09:15 | AM.OFFWIN_ITS ---
Intake Vital Signs 08/28/23 09:24 Height 5 ft Weight 185 lb BMI 36.1 BP 130/80 Blood Pressure Location Lt brachial Position Sitting Pulse 75 Pulse Source Pulse Oximeter Temp 97.3 F Temp Source Temporal Artery Scan Pulse Oximetry (%) 98 Oxygen Delivery Method Room Air Intake Visit Reasons: EP sinus sore throat cough ears [id number] Intake Note: pt is here for c.o cough, sinus, sore throat Patient Tobacco Use Status: Current everyday Tobacco user Allergies Seasonal Allergies Allergy (Severe, Verified 08/28/23 09:16) Itchy Eyes lisinopril Adverse Reaction (Severe, Verified 08/28/23 09:16) Cough pregabalin [From Lyrica] Adverse Reaction (Severe, Verified 08/28/23 09:16) Shortness of Breath celecoxib [From Celebrex] Adverse Reaction (Verified 08/28/23 09:16) Hypertension varenicline [From Chantix] Adverse Reaction (Verified 08/28/23 09:16) Depression Do you need a note to return to daycare/school/sports/work: Yes HPI HPI Comments History of Present Illness Details Patient is a 57-year-old female in today for a sick visit. Patient states that for the past week she has developed symptoms of headache, cough, sore throat, chest congestion, nasal discharge. Patient also states that her right ear feels like it is full. She feels like she started to feel sick after she had a doctor's appointment 12 days prior. Patient states that she has gotten little relief with NyQuil. She has a past medical history significant for asthma. She denies any dizziness, shortness of breath, chest pain, nausea, vomiting, diarrhea. Patient recently finished prednisone taper for costal chondritis. [facility] Medical History Numbness and tingling of left leg Tremors of nervous system TMJ (dislocation of temporomandibular joint) Lyme disease Hypersomnia Snoring Hyperlipidemia HTN (hypertension) GERD (gastroesophageal reflux disease) Generalized headaches Back pain Arthritis Surgical History S/P cervical spinal fusion Hx of cervical spine surgery Hx of endoscopy Hx of colonoscopy History of salpingo-oophorectomy History of laparoscopy Hx of arthroscopy Hx of tubal ligation Hx of hysterectomy, total Hx of shoulder surgery Hx of knee surgery Family History Father Heart disease Cancer Prostate cancer Mother Dementia Congestive heart failure Social History Housing: House Alcohol intake: current Patient Tobacco Use Status: Current everyday Tobacco user Cigarettes Per Day: 2 Years Smoked: 26 e-Cigarette/Vaping Use: Never Used Second Hand Smoke Exposure: No service: No Current occupational status: disabled Current occupational exposures/hazards: No Cognitive needs: No Hearing needs: No Vision needs: No Review of Systems Const Details: Constitutional : No Weight loss, No Fever, No Chills, No Fatigue, No Malaise ENT/Mouth : Admits sore throat, Admits Rhinorrhea Eyes: No Eye Pain, No Swelling, No Redness Cardiovascular : No Chest Pain, No SOB, No Dyspnea on Exertion, No Orthopnea, No Edema, No Palpitations Respiratory : Admits Cough, No Sputum, Admits slight Wheezing Gastrointestinal : No Nausea, No Vomiting, No Diarrhea, No Constipation, No abdominal Pain, No Hematochezia, No Melena Genitourinary : No Dysuria, No Urinary Frequency, No Hematuria, Musculoskeletal : No joint pain, No Myalgias, No Joint Swelling Skin : No Skin Lesions, No rash Neuro : No Weakness, No Numbness, No Dizziness, No Headache Psych : No Anxiety/Panic, No Depression Heme/Lymph: No Bruising, No Bleeding,No Lymphadenopathy Endocrine : No Polyuria, No Polydipsia All other systems reviewed and are negative Physical Exam Vital Signs: Last Vital Signs Temp 97.3 F 08/28/23 09:24 Pulse 75 08/28/23 09:24 BP 130/80 08/28/23 09:24 Pulse Ox 98 08/28/23 09:24 Oxygen Delivery Method Room Air 08/28/23 09:24 BMI result Body Mass Index 36.1 Vital signs reviewed and are stable Const Other: Appearance: Alert.? Oriented X3.? No acute distress.? Head: Normocephalic, atraumatic, no step-offs or deformities Eyes: Pupils equal, round and reactive to light.? ENT: Pharynx erythema and cobblestoned. Clear nasal discharge. TM intact, effusion of the right ear without erythema. ? Neck: Normal inspection.? Neck supple.?Ful ROM CVS: Normal heart rate and rhythm.? Pulses normal.? Respiratory: No respiratory distress.? Slight expiratory wheeze. Neuro: Oriented X 3.? No motor deficit.? No sensory deficit. CN 2-12 intact Results AMB Rapid Strep AMB Rapid Strep Negative Last Edit by Tariq Van CMA on 08/28/23 09 :31 Results Reviewed Results Reviewed: Laboratory Last Values Strep Scn Rapid [facility] Negative 08/28/23 09:30 Potential that specimen for strep test was not a in accurate culture, unable to get a good specimen on the swab due to gag reflex. Assessment & Plan Assessment & Plan (1) Strep throat: Comment: Patient will be given Augmentin to be taken as prescribed. She has been educated on the side effects of these medications. Code(s): J02.0 - Streptococcal pharyngitis Plan: Take your medications as prescribed. If you were prescribed antibiotics today, it is important that you take your medication to their entirety, do not skip any doses, do not finish them early. Follow-up with your primary care provider this week. Return to the emergency department with new or worsening symptoms. Such as fevers, chills, chest pain, shortness of breath, nausea, vomiting, dizziness, he adache, vision changes, lethargy In case of emergency call 911 (2) Cough: Comment: Patient will be given benzonatate to be taken for cough. Patient is also been educated on the side effects of the medication. Code(s): R05.9 - Cough, unspecified Qualifiers: Cough type: acute Qualified Code(s): R05.1 - Acute cough Plan: Follow-up PCP Orders: Orders SARS-CoV2/FLU/RSV Today J06.9 - Acute upper respiratory infection, unspecified AMB Rapid Strep Screen Today Z13.9 - Encounter for screening, unspecified Coding Level of Care Code Est Pt Level 3 (65000) Diagnoses Strep throat J02.0 Acute cough R05.1 Cough type: acute Time Spent (min) 15
[2023-08-28 09:24] VITALS: BP 130/80; PULSE 75; TEMP 36.3; O2SAT 98; BMI 36.1
== END 2023-08-28 10:01 | disposition home or self-care (01) ==
PROVIDERS: PCP Family Medicine; Visit Provider Nurse Practitioner Primary Care
DX: J02.0 Streptococcal pharyngitis (principal); R05.1 Acute cough
CPT/HCPCS: 87880; 99213

== ENCOUNTER 2023-08-28 11:24 | Outpatient (REF) | payer OTHER, SELFPAY ==
[2023-08-28 12:14] LABS: Influenza A PCR NEGATIVE (Negative); Influenza B PCR NEGATIVE (Negative); Resp Syncy Virus RNA Qual PCR NEGATIVE (Negative); SARS COV2 PCR INHOUSE POSITIVE (Negative)
== END 2023-08-28 11:25 | disposition home or self-care (01) ==
LOC: HO.LNP 11:24
PROVIDERS: Visit Provider Nurse Practitioner Primary Care
DX: Z11.52 Encounter for screening for COVID-19 (principal); J06.9 Acute upper respiratory infection, unspecified
CPT/HCPCS: 0241U

== ENCOUNTER 2023-09-13 07:10 | Outpatient (REF) | payer OTHER, SELFPAY ==
--- NOTE | ~2023-09-13 | CT_ITS ---
EXAMINATION: CT CHEST WITHOUT CONTRAST CLINICAL INFORMATION: Shortness of breath. COMPARISON: Chest radiographs dated 06/11/2023. TECHNIQUE: Multidetector volumetric CT imaging of the chest was done. Axial MIP volume rendering provided. Sagittal and coronal reformatted images were obtained. This CT examination was performed using dose optimization techniques as appropriate, variously including the following: *Automated exposure control *Adjustment of mA and/or kV according to patient size (this includes techniques or standardized protocols for targeted exams where dose is matched to indication/reason for exam; i.e. extremities or head) *Use of iterative reconstruction technique DLP: 187 mGy-cm FINDINGS: LUNGS: There are foci of minor scar/subsegmental atelectasis within the anterior segment of the left upper lobe and the lingula, without associated focal airway obstruction. The lungs are otherwise clear, with no evidence of inflammation or nodules. There is no mass, infiltrate or groundglass opacity. No generalized increase is seen in peripheral interlobular septal markings. There is no generalized small airway thickening. The central airways appear patent. MEDIASTINUM: The thyroid is unremarkable. Within the anterior mediastinum (3:28), a 1.9 x 1.4 cm nodule is seen with postcontrast Hounsfield value of 80.7 units. This contains no cystic component or calcification. No hilar lymphadenopathy is seen. There is no thoracic aortic aneurysm. CORONARY ARTERY CALCIFICATION: Very mild. PLEURA: There is no pleural effusion. No pleural mass or thickening. AXILLA: No lymphadenopathy. UPPER ABDOMEN: Unremarkable. OSSEOUS STRUCTURES: There is lower cervical orthopedic hardware, partially included in the [id number]. No acute or aggressive osseous finding is noted. CT/CT chest wo IV con IMPRESSION: 1. 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 Likely differential considerations include a primary tumor of the thymus such as a thymoma, lymphadenopathy including lymphoma, and a mediastinal germ cell tumor. Further work-up may be indicated, with consideration for follow-up CT imaging. 2. There are foci of minor scar/subsegmental atelectasis within the anterior segment of the left upper lobe and the lingula. No associated focal airway obstruction is noted. 3. There is no pulmonary mass, nodule, infiltrate or groundglass opacity. 4. No pleural effusion is seen. 5. No aggressive osseous lesion is seen. Fleischner guidelines were followed.
== END 2023-09-13 07:11 | disposition home or self-care (01) ==
LOC: HO.CT 07:10
PROVIDERS: PCP Family Medicine; Visit Provider Nurse Practitioner Family
DX: R06.02 Shortness of breath (principal); R05.9 Cough, unspecified
CPT/HCPCS: 71250

== ENCOUNTER 2023-09-27 10:39 | Outpatient (REF) | payer OTHER, SELFPAY ==
[2023-09-27 10:51] VITALS: PULSE 78; O2SAT 16
--- NOTE | 2023-09-27 16:51 | PFT_ITS ---
Indication: Pulmonary nodule Spirometry [FEV1 to FVC 77%; FEV1 1.89 L; FVC 2.46 L. no significant response to bronchodilators noted. Maximum voluntary ventilation 108% predicted] Lung Volumes [Total lung capacity 80% predicted] Diffusion Capacity [Diffusing capacity 76% predicted] Comparisons [None] Interpretation [No obstructive nor restrictive ventilatory defects identified. No significant response to bronchodilators noted. Normal maximum voluntary ventilation. Lung volumes are within normal limits. Patient does have a mild diffusion impairment. Clinical correlation warranted.] MTDD
== END 2023-09-27 10:40 | disposition home or self-care (01) ==
LOC: HO.RESP 10:39
PROVIDERS: PCP Family Medicine; Visit Provider Nurse Practitioner Family
DX: J45.909 Unspecified asthma, uncomplicated (principal)
CPT/HCPCS: 94010; 94640; 94727; 94729

== ENCOUNTER → 2023-09-27 16:51 | Outpatient (BNV) | payer OTHER, SELFPAY | PROVIDERS: PCP Family Medicine; Visit Provider Hospitalist | DX: J45.909 Unspecified asthma, uncomplicated (principal) | CPT/HCPCS: 94060; 94727; 94729 ==

== ENCOUNTER 2023-10-05 10:36 | Outpatient (AMB) | payer OTHER, SELFPAY ==
--- NOTE | 2023-10-05 10:38 | A.OFFVIS_ITS ---
Intake Vital Signs 10/05/23 10:48 Height 5 ft Weight 188 lb BMI 36.7 BP 177/94 H Blood Pressure Location Rt brachial Position Sitting Pulse 80 Intake Visit Reasons: Diseases of the mediastinum Intake Note: Patient referred by Santos Henning for diseases of mediastinum. Recent chest CT on 09-13-23. Patient c/o: SOB, coughing, hoarseness. 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 She has been worked up for pulmonary issues and the above-mentioned was identified. Patient does not have sent this associated with myasthenia gravis. Does have a modest smoking history of 1/2 pack per day for 25+ years which is decreased over the last few months. She denies any significant change in diet, energy, or appetite. He has a chronic cough which he has had secondary to asthma but denies any hemoptysis, chest pain or wheezing. Chart was reviewed and patient evaluated [facility] Medical History (Updated 10/05/23 @ 10:46 by GABRIELA Kimbrough) TMJ (temporomandibular joint syndrome) Numbness and tingling of left leg Tremors of nervous system TMJ (dislocation of temporomandibular joint) Lyme disease Hypersomnia Snoring Hyperlipidemia HTN (hypertension) GERD (gastroesophageal reflux disease) Generalized headaches Back pain Arthritis Surgical History (Updated 10/05/23 @ 11:19 by Kadeem Alex MD) Mediastinal mass S/P cervical spinal fusion Hx of cervical spine surgery Hx of endoscopy Hx of colonoscopy History of salpingo-oophorectomy History of laparoscopy Hx of arthroscopy Hx of tubal ligation Hx of hysterectomy, total Hx of shoulder surgery Hx of knee surgery Family History Father Heart disease Cancer Prostate cancer Mother Dementia Congestive heart failure Social History Housing: House Alcohol intake: current Patient Tobacco Use Status: Current everyday Tobacco user Cigarettes Per Day: 2 Years Smoked: 26 e-Cigarette/Vaping Use: Never Used Second Hand Smoke Exposure: No service: No Current occupational status: disabled Current occupational exposures/hazards: No Cognitive needs: No Hearing needs: No Vision needs: No Physical Exam Vital Signs: Last Vital Signs Pulse 80 10/05/23 10:48 BP 177/94 H 10/05/23 10:48 BMI result Body Mass Index 36.7 Neck Other: No cervical, periclavicular, or axillary adenopathy. Chest Other: Chest breath sounds bilaterally, HS 1 in 2 GI Other: Abdomen soft, corpulent, benign Assessment & Plan Assessment & Plan (1) Mediastinal mass: Code(s): J98.59 - Other diseases of mediastinum, not elsewhere classified Plan Discussed with the patient and her therapeutic options which include observation with serial/sequential CT scans, biopsy, or excision. The patient does not wished to undergo observation with surveillance. Biopsy will not change the management. If the patient's diagnosis is benign, we will still removed with the process because she wishes to have removed. It is is malignant, she will also require excision. Risks, benefits, alternatives of thorascopic possible open resection of anterior mediastinal mass reviewed with the patient and included but not limited to bleeding, infection, recurrence, numbness, pain, scarring, phrenic nerve injury and the patient wishes to proceed. All questions answered. Arrangements were made for this. Coding Level of Care Code New Pt Level 5 (77686) Diagnoses Mediastinal mass J98.59
[2023-10-05 10:48] VITALS: BP 177/94; PULSE 80; BMI 36.7
== END 2023-10-05 11:56 | disposition home or self-care (01) ==
PROVIDERS: PCP Family Medicine; Referring Provider Hospitalist; Visit Provider Surgery
DX: J98.59 Other diseases of mediastinum, not elsewhere classified (principal)
CPT/HCPCS: 99204

== ENCOUNTER → 2023-10-05 10:36 | Outpatient (BNVA) | payer OTHER, SELFPAY | PROVIDERS: PCP Family Medicine; Referring Provider Hospitalist; Visit Provider Surgery ==

== ENCOUNTER 2023-10-10 10:28 | Outpatient (AMB) | payer OTHER, SELFPAY ==
--- NOTE | 2023-10-10 10:34 | A.OFFVIS_ITS ---
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 Required: No Accompanied by: Self / Same As Patient Allergies Seasonal Allergies Allergy (Severe, Verified 10/10/23 10:40) Itchy Eyes lisinopril Adverse Reaction (Severe, Verified 10/10/23 10:40) Cough pregabalin [From Lyrica] Adverse Reaction (Severe, Verified 10/10/23 10:40) Shortness of Breath celecoxib [From Celebrex] Adverse Reaction (Verified 10/10/23 10:40) Hypertension varenicline [From Chantix] Adverse Reaction (Verified 10/10/23 10:40) Depression Medication List - Last Reconciled 10/10/23 by Melia Schneider LPN albuterol sulfate 90 mcg/actuation 2 puffs inhalation Q6H PRN 30 days benzonatate 100 mg PO BID PRN bupropion HCl 300 mg PO QAM 30 days buspirone 15 mg (1.5 x 10 mg) PO BID cyclobenzaprine 10 mg PO TID cyclosporine 0.05% (Restasis) 1 drp ophthalmic (eye) Q12H diclofenac sodium 1% 4 grams topical QID PRN 30 days diltiazem HCl ER (Tiadylt ER) 180 mg PO DAILY 90 days fluoxetine 40 mg (2 x 20 mg) PO DAILY 30 days fluticasone propion-salmeterol 250-50 mcg/dose (Wixela Inhub) 1 inh inhalation Q12H 90 days lorazepam (Ativan) 1 mg PO DAILY PRN magnesium gluconate (Mag-G) 27 mg PO BID meloxicam 15 mg PO DAILY montelukast (Singulair) 10 mg PO DAILY 30 days omega 6-pam-szv-fish oil 300-1,000 mg (Fish Oil) 1 cap PO DAILY omeprazole 20 mg PO DAILY propranolol ER 60 mg PO DAILY telmisartan 80 mg PO DAILY 90 days HPI fuv after thoracic surgeon appt HPI Details Lety is a pleasant 57 year old female, less than 10 pack year history, currently smokes 1/4 ppd, with underlying history of asthma, diagnosed as an adult and GERD, controlled. She was suboptimally controlled on Flovent, using her albuterol MDI frequently and switched to Advair 250mcg. She continues to report persistent dry cough, chest tightness and dyspnea. She denies wheezing. Today she presents to review PFT results and discuss thoracic surgery consultation. [facility] Medical History (Updated 10/05/23 @ 10:46 by GABRIELA Kimbrough) TMJ (temporomandibular joint syndrome) Numbness and tingling of left leg Tremors of nervous system TMJ (dislocation of temporomandibular joint) Lyme disease Hypersomnia Snoring Hyperlipidemia HTN (hypertension) GERD (gastroesophageal reflux disease) Generalized headaches Back pain Arthritis Surgical History (Updated 10/05/23 @ 11:19 by Kadeem Alex MD) Mediastinal mass S/P cervical spinal fusion Hx of cervical spine surgery Hx of endoscopy Hx of colonoscopy History of salpingo-oophorectomy History of laparoscopy Hx of arthroscopy Hx of tubal ligation Hx of hysterectomy, total Hx of shoulder surgery Hx of knee surgery Family History Father Heart disease Cancer Prostate cancer Mother Dementia Congestive heart failure Social History Housing: House Alcohol intake: current Patient Tobacco Use Status: Current everyday Tobacco user Cigarettes Per Day: 2 Years Smoked: 26 e-Cigarette/Vaping Use: Never Used Second Hand Smoke Exposure: No service: No Current occupational status: disabled Current occupational exposures/hazards: No Cognitive needs: No Hearing needs: No Vision needs: No Review of Systems Const Denies chills, Denies excessive sweating, Denies fever(s), Denies headache(s) and Denies night sweats Eyes Denies itchy eyes ENT Reports Normal hearing present, Denies headache(s), Denies nasal congestion, Denies nasal discharge, Denies post nasal drip and Denies sore throat Card Denies chest pain, Denies chest pain at rest, Denies chest pain with activity, Denies claudication, Denies leg edema, Reports dyspnea, Denies orthopnea and Denies paroxysmal nocturnal dyspnea Resp Denies chest congestion, Reports cough, Denies excessive phlegm production, Denies pain on inspiration, Denies pain with cough, Reports dyspnea, Denies stridor and Denies wheezing Neuro Reports Normal hearing present and Denies headache(s) Endo Denies excessive sweating Yaw/Lymph Denies lymphadenopathy Aller/Immun Denies itchy eyes, Denies seasonal rhinorrhea and Denies wheezing Physical Exam Vital Signs: Last Vital Signs Pulse 77 10/10/23 10:35 BP 114/62 10/10/23 10:35 Pulse Ox 99 10/10/23 10:35 Oxygen Delivery Method Room Air 10/10/23 10:35 BMI result Body Mass Index 36.9 Const General: cooperative, healthy appearing, comfortable, no acute distress, well developed and alert Nutritional Appearance: obese Orientation/consciousness: patient oriented x3 Limitations: no limitations HEENT Head: Yes normal to inspection, Yes normocephalic and Yes atraumatic Ears: hearing grossly normal bilaterally and external ears normal Eyes General: appearance normal, both eyes and all related structures Eyelids: Yes eyelids normal Sclerae: sclerae normal EOM: EOMs intact bilaterally Neck Neck: Yes normal visual inspection and Yes no lymphadenopathy Lymphatic: no lymphadenopathy noted Chest Chest palpation & inspection: normal inspection of the chest Resp Effort & Inspection: normal respiratory effort, able to speak in complete sentences, no audible wheezes, no cough, no stridor, not tachypneic, no tripod positioning and no use of accessory muscles Auscultation: clear to auscultation bilaterally Cardio Jugular venous distension: no JVD Rate: regular rate Rhythm: regular rhythm Skin Other: warm, dry General skin exam: no rashes or lesions noted Neuro General: patient oriented x3 Cranial nerves: Yes Normal hearing present Cognition (Neuro): normal cognition Gait exam (Neuro): Normal gait present Extrem General: Yes normal to inspection, Yes capillary refill normal, Yes no clubbing, cyanosis or edema and Yes no pedal edema Psych Appearance: grossly normal and well kempt Speech and movement: Normal speech and movement present and Clear speech present Affect: normal affect Attitude: cooperative Thought process: Normal thought process present Thought content: Normal thought content present Insight: Good insight present (Psych) Judgement: Good judgement present (Psych) Assessment & Plan Assessment & Plan (1) Asthma: Code(s): J45.909 - Unspecified asthma, uncomplicated (2) Shortness of breath: Code(s): R06.02 - Shortness of breath (3) GERD (gastroesophageal reflux disease): Code(s): K21.9 - Gastro-esophageal reflux disease without esophagitis (4) Cough: Comment: Patient will be given benzonatate to be taken for cough. Patient is also been educated on the side effects of the medication. Code(s): R05.9 - Cough, unspecified Qualifiers: Cough type: acute Qualified Code(s): R05.1 - Acute cough (5) Personal history of tobacco use: Code(s): Z87.891 - Personal history of nicotine dependence (6) Obesity (BMI 30-39.9): Code(s): E66.9 - Obesity, unspecified (7) Mediastinal mass: Code(s): J98.59 - Other diseases of mediastinum, not elsewhere classified Plan Lety's symptoms are likely related to underlying asthma and she continues to smoke. She had moderate improvements with Advair however continues with symptoms. Will increase from Advair 250 to 500 mcg, as patient continues to report cough, chest tightness and dyspnea. Reviewed PFT which did not reveal an obstructive or restrictive defect and no response to bronchodilators. TLC normal with slightly decreased DLCO at 76. Recent chest CT revealed anterior mediastinal mass. She had an evaluation with Dr. Alex and will move forward with resection, scheduled in October. Will follow up after surgery to review response to inhaler. All questions were answered and patient is in agreement of plan. Medications: New fluticasone propion-salmeterol 500-50 mcg/dose (Wixela Inhub) 1 inh inhalation Q12H 60 ea 3RF Refilled albuterol sulfate 90 mcg/actuation 2 puffs inhalation Q6H 30 days PRN 8.5 grams 4RF Shortness Of Breath Coding Level of Care Code Est Pt Level 4 (87037) Diagnoses Asthma J45.909 Shortness of breath R06.02 GERD (gastroesophageal reflux disease) K21.9 Acute cough R05.1 Cough type: acute Personal history of tobacco use Z87.891 Obesity (BMI 30-39.9) E66.9 Mediastinal mass J98.59
[2023-10-10 10:35] VITALS: BP 114/62; PULSE 77; O2SAT 99; BMI 36.9
== END 2023-10-10 11:37 | disposition home or self-care (01) ==
PROVIDERS: PCP Family Medicine; Visit Provider Nurse Practitioner Family
DX: J45.909 Unspecified asthma, uncomplicated (principal); R06.02 Shortness of breath; K21.9 Gastro-esophageal reflux disease without esophagitis; R05.1 Acute cough; Z87.891 Personal history of nicotine dependence; E66.9 Obesity, unspecified; J98.59 Other diseases of mediastinum, not elsewhere classified
CPT/HCPCS: 99214

== ENCOUNTER → 2023-10-10 10:28 | Outpatient (BNVA) | payer OTHER, SELFPAY | PROVIDERS: PCP Family Medicine; Visit Provider Nurse Practitioner Family ==

== ENCOUNTER 2023-11-08 05:41 | Day surgery (SDC) | payer OTHER, SELFPAY ==
[2023-11-02 12:47] VITALS: BP 171/87; PULSE 78; RESP 20; O2SAT 96; BMI 37.1
[2023-11-02 14:06] LABS: Hematocrit 41.5 % (37.0-47.0); Hemoglobin 14.3 g/dl (12.0-16.0); Mean Corpuscular HGB Conc 34.5 g/dl (31.0-35.0); Mean Corpuscular Hemoglobin 30.2 pg (27.0-33.0); Mean Corpuscular Volume 87.6 fL (80.0-98.0); Mean Platelet Volume 8.3 fL (9.4-12.3); Platelet Count 465 X10*3/uL (160-400); Red Blood Count 4.74 X10*6/uL (4.20-5.50); Red Cell Distribution Width 12.6 % (11.0-16.0)
[2023-11-02 14:21] LABS: Anion Gap 13 (12-20); Blood Urea Nitrogen 9 mg/dL (9-16); Calcium 10.9 mg/dL (8.4-10.2); Carbon Dioxide 28 mmol/L (22-29); Chloride 99 mmol/L (96-108); Estimated Glomerular Filt Rate > 60; Glucose Random 92 mg/dL (60-115); Potassium 4.4 mmol/L (3.3-5.1); Sodium 136 mmol/L (135-145)
--- NOTE | 2023-11-07 11:46 | MHC.SHP ---
Pre-Procedural Eval Section A - 24 Hr Update-Section A only Date of Service: 11/07/23 The patient is an INPATIENT: No Changes since office visit: No Cold of Flu in the past 2 weeks, No New Medical Problems, No Changes in Medication and No Patient answered all questions The patient has been examined within 24 hours of the surgical procedure. The History & Physical has been completed within 30 days and I have reviewed it.: Yes Section B - Complete if H&P > 30 days Chief Complaint: Other diseases of mediastinum, not elsewhere class Allergies: Allergies Allergy/AdvReac Type Severity Reaction Status Date / Time Seasonal Allergies Allergy Severe Itchy Eyes Verified 10/10/23 10:40 lisinopril AdvReac Severe Cough Verified 10/10/23 10:40 pregabalin [From Lyrica] AdvReac Severe Shortness Verified 10/10/23 10:40 of Breath celecoxib [From Celebrex] AdvReac Intermediate Hypertensio Verified 11/01/23 10:03 n varenicline [From Chantix] AdvReac Intermediate Depression Verified 11/01/23 10:03 Plan I have reviewed the history and physical and performed a pertinent physical examination on my patient. No changes have occurred unless specified. Time Spent With Patient Time: Total time managing care of this patient today ____ minutes.
[2023-11-08] VITALS (17 sets, daily range): BP systolic 107–163; BP diastolic 61–93; PULSE 60–83; RESP 14–20; TEMP 35.9–36.9; O2SAT 93–99; BMI 37.0
--- NOTE | 2023-11-08 | ECG_ITS ---
Test Reason : chest pain Blood Pressure : / mmHG Vent. Rate : 069 BPM Atrial Rate : 069 BPM P-R Int : 184 ms QRS Dur : 088 ms QT Int : 406 ms P-R-T Axes : 020 023 052 degrees QTc Int : 435 ms Normal sinus rhythm Normal ECG No previous ECGs available Referred By: Aletha Mcneil Electronically Signed By:JUANJOSE PADRON MD
--- NOTE | ~2023-11-08 | XR_ITS ---
EXAMINATION: XR CHEST CLINICAL INFORMATION: Chest tube removal. COMPARISON: 11/08/2023 chest radiograph. TECHNIQUE: 10:24 AM 11/09/2023 frontal view of the chest was obtained. FINDINGS: Redemonstration of partially imaged fixation plate and screws overlying the cervical spine and left shoulder prosthesis. Left apical chest tube has been removed. Left perihilar and upper lobe patchy opacities may represent postsurgical changes as previously noted. Redemonstration of surgical clips overlying the left mediastinum and axilla. Decreased bibasilar opacities characteristic of decreasing atelectasis. No gross pleural effusion. There is no gross pneumothorax. Heart size within normal limits. XR/XR chest 1V IMPRESSION: 1. Left apical chest tube has been removed. No gross pneumothorax. 2. Improving left perihilar and upper lobe patchy opacities may represent postsurgical changes as previously noted. Decreased bibasilar opacities characteristic of decreasing atelectasis.
--- NOTE | ~2023-11-08 | XR_ITS ---
EXAMINATION: XR CHEST CLINICAL INFORMATION: Status post VATS COMPARISON: Chest 06/11/2023 TECHNIQUE: AP upright portable view of the chest was obtained. 10:13 AM FINDINGS: A chest tube extends to the left lung apex. There is a small left apical pneumothorax. Patchy opacity in the left upper lung may be related to postsurgical changes. Surgical clips project over the left side of the mediastinum. Slight linear opacity at the left lung base most consistent with atelectasis. There is shift of the mediastinum to the left of midline. Heart size is normal. No pleural effusion. Anterior plate and screws are seen in the lower cervical spine. XR/XR chest 1V IMPRESSION: 1. Small left apical pneumothorax with chest tube in place. 2. Patchy opacity in the left upper lung may be related to postsurgical changes.
--- NOTE | ~2023-11-08 | XR_ITS ---
EXAMINATION: XR CHEST CLINICAL INFORMATION: Chest tube removal. COMPARISON: 11/08/2023 chest radiograph. TECHNIQUE: 5:26 AM on 11/09/2023 view of the chest was obtained. FINDINGS: Redemonstration of left chest tube extending to the left lung apex. Previously identified small left pneumothorax is less conspicuous. Redemonstration of partially imaged fixation plate and screws overlying the cervical spine and left shoulder prosthesis. Left perihilar and upper lobe patchy opacities may represent postsurgical changes, as previously noted, and demonstrate some interval improvement. Redemonstration of surgical clips overlying the left mediastinum and axilla. Decreased bibasilar opacities characteristic of decreasing atelectasis. No gross pleural effusion. There is no gross pneumothorax. Heart size is within normal limits. XR/XR chest 1V IMPRESSION: 1. Redemonstration of left chest tube extending to the left lung apex. Previously identified small left pneumothorax is less conspicuous. 2. Left perihilar and upper lobe patchy opacities may represent postsurgical change as previously noted and demonstrates some interval improvement. Decreased bibasilar opacities characteristic of decreasing atelectasis.
--- NOTE | ~2023-11-08 | XR_ITS ---
EXAMINATION: XR CHEST CLINICAL INFORMATION: Shortness of breath. COMPARISON: Chest x-ray dated 11/09/2023 and 11/08/2023. TECHNIQUE: AP upright portable view of the chest was obtained. FINDINGS: The cardiomediastinal silhouette is within normal limits in size. Lungs bilaterally are symmetrically expanded. Lobulation of the right hemidiaphragm again noted. There is some linear opacity in the lung bases bilaterally, right greater than left, consistent with linear subsegmental atelectasis. No focal consolidation, effusion or pneumothorax is seen. Low cervical spine fusion hardware and left shoulder hemiarthroplasty noted. XR/XR chest 1V IMPRESSION: * Bibasilar linear subsegmental atelectasis, right greater than left. * No focal pneumonia.
[2023-11-08] MEDS: Lactated Ringers 1,000 ML 100 ML IVCONT (06:45)
--- NOTE | 2023-11-08 07:20 | HO.ANESPROP2 ---
Documented by User: Yuliana Thomson NP 11/05/23 10:04 HPI - Anesthesia Eval Consult details Narrative: 57yo F for Thoracoscopy w/Video Assist resection mediastinal mass, 11/08/23 No recent illness No CP. FRAAG prevents activity. Follows [facility] pulmo. Last office visit 09/2023. Increased wixela with mild imrovement with chest tightness, chronic cough. TMJ. Left side jaw replacement 2019. Polyathralgia/costochondritis. Meloxicam and topical Thrombocytosis. Follows [facility] heme. No tx. Trended nml Gerd. Well controlled on ppi [facility] Active Problems Active Problems: All Active Problems (Updated 11/02/23 @ 12:38 by Beverly Dyer RN) Environmental allergies (Acute) Mediastinal mass (Acute) Strep throat (Acute) Obesity (BMI 30-39.9) (Acute) Personal history of tobacco use (Acute) Cough (Acute) Polyarthralgia (Acute) Costochondritis (Acute) Shortness of breath (Acute) Dizziness (Acute) Low back pain (Acute) Seasonal allergies (Acute) Sinus infection (Acute) Breast cancer screening by mammogram (Acute) Screening for colon cancer (Acute) Screening for cervical cancer (Acute) Adult general medical exam (Acute) Hyponatremia (Acute) Thrombocytosis (Acute) Chronic pain syndrome (Acute) Asthma (Acute) High platelet count (Acute) BMI 39.0-39.9,adult (Acute) Anxiety and depression (Acute) Normal physical exam (Acute) TMJ (dislocation of temporomandibular joint) (Acute) Numbness and tingling of left leg (Acute) Tremors of nervous system (Acute) Hypersomnia (Acute) Snoring (Acute) Hyperlipidemia (Acute) HTN (hypertension) (Acute) GERD (gastroesophageal reflux disease) (Acute) Generalized headaches (Acute) Back pain (Acute) Arthritis (Acute) Past Medical History Medical History (Updated 11/02/23 @ 12:38 by Beverly Dyer RN) Polyarthralgia Raynauds phenomenon DDD (degenerative disc disease), cervical Mediastinal mass Asthma Chronic pain syndrome Costochondritis Thrombocytosis TMJ (temporomandibular joint syndrome) Numbness and tingling of left leg Tremors of nervous system Lyme disease Hypersomnia Snoring Hyperlipidemia HTN (hypertension) GERD (gastroesophageal reflux disease) Generalized headaches Back pain Arthritis Family History Family History Father Heart disease Cancer Prostate cancer Mother Dementia Congestive heart failure Family history of problems with anesthesia: No Surgical History Surgical History (Updated 11/02/23 @ 12:42 by Beverly Dyer RN) History of mandibular surgery S/P cervical spinal fusion Hx of cervical spine surgery Hx of endoscopy Hx of colonoscopy History of salpingo-oophorectomy History of laparoscopy Hx of arthroscopy Hx of tubal ligation Hx of hysterectomy, total Hx of shoulder surgery Hx of knee surgery History of Problems with Anesthesia: Yes (Leg weakness s/p ~7 hour jaw surgery) Social History Social History Housing: House Are you a primary daycare manager to a significant other at home: No Do you presently have visiting nurse or other home services: No Alcohol intake: current Patient Tobacco Use Status: Current everyday Tobacco user Tobacco use type: Cigarette Cigarettes Per Day: 2 Years Smoked: 26 e-Cigarette/Vaping Use: Never Used Second Hand Smoke Exposure: No Use of substances other than those prescribed or required for medical reasons: No Have you been hit, kicked, punched, or otherwise hurt by someone within the past year? If so, by whom?: No Are you DNR?: No Advance Directives: No Advance Directives Information Provided: Yes Advance Directives on File: No Recently lost weight without trying: No Eating poorly because of decreased appetite: No Nutrition Risks: No Nutritional Risk Poor oral hygiene: No (permanent bridge lower right/one crown lower right) service: No Current occupational status: disabled Current occupational exposures/hazards: No Cognitive needs: No Hearing needs: No Vision needs: No Meds Allergies Allergy/AdvReac Type Severity Reaction Status Date / Time Seasonal Allergies Allergy Severe Itchy Eyes Verified 10/10/23 10:40 lisinopril AdvReac Severe Cough Verified 10/10/23 10:40 pregabalin [From Lyrica] AdvReac Severe Shortness Verified 10/10/23 10:40 of Breath celecoxib [From Celebrex] AdvReac Intermediate Hypertensio Verified 11/01/23 10:03 n varenicline [From Chantix] AdvReac Intermediate Depression Verified 11/01/23 10:03 Home Medications Medication Instructions Recorded Confirmed Last Taken Type cyclosporine 0.05 % eye drops in a 1 drp ophthalmic (eye) Q12H 07/03/23 11/08/23 11/08/23 History dropperette (Restasis) omega 4-jas-vjn-fish oil 300 1 cap PO QAM 07/03/23 11/02/23 11/07/23 History mg-1,000 mg capsule (Fish Oil) meloxicam 15 mg tablet 15 mg PO QAM 07/27/23 11/08/23 11/07/23 History propranolol 60 mg capsule,24 60 mg PO BEDTIME 08/28/23 11/08/23 11/07/23 History hr,extended release magnesium gluconate 27 mg 27 mg PO BID 10/05/23 11/08/23 11/07/23 History magnesium (500 mg) tablet (Mag-G) diltiazem HCl 180 mg capsule,24 180 mg PO QAM 11/02/23 11/02/23 11/08/23 05:45 History hr,extended release (Tiadylt ER) fluoxetine 20 mg capsule 40 mg PO QAM 11/02/23 11/08/23 11/07/23 History montelukast 10 mg tablet 10 mg PO QAM 11/02/23 11/08/23 11/07/23 History (Singulair) omeprazole 20 mg capsule,delayed 20 mg PO QAM 11/02/23 11/02/23 11/08/23 05:45 History release telmisartan 80 mg tablet 80 mg PO QAM 11/02/23 11/08/23 11/07/23 History Exam Pertinent Lab Results Pertinent Lab Results: Lab Results 11/02/23 11/02/23 Range/Units 13:38 13:46 WBC 11.0 H (4.8-10.8) X10*3/uL RBC 4.74 (4.20-5.50) X10*6/uL Hgb 14.3 (12.0-16.0) g/dl Hct 41.5 (37.0-47.0) % MCV 87.6 (80.0-98.0) fL MCH 30.2 (27.0-33.0) pg MCHC 34.5 (31.0-35.0) g/dl RDW 12.6 (11.0-16.0) % Plt Count 465 H (160-400) X10*3/uL MPV 8.3 L (9.4-12.3) fL Absolute Nucleated RBC 0.000 (0.0-0.012) X10*3/uL Nucleated RBC % (auto) 0.0 (0.0-0.2) /100WBC Sodium 136 (135-145) mmol/L Potassium 4.4 (3.3-5.1) mmol/L Chloride 99 (96-108) mmol/L Carbon Dioxide 28 (22-29) mmol/L Anion Gap 13 (12-20) BUN 9 (9-16) mg/dL Creatinine 0.72 (0.5-1.4) mg/dL Estim Creat Clear Calc 82.0 Estimated GFR > 60 Random Glucose 92 (60-115) mg/dL Calcium 10.9 H D (8.4-10.2) mg/dL Blood Type B Negative Antibody Screen NEGATIVE Narrative Narrative: EKG 05/2023 NSR @ 90 Airway Mallampati Class: III TM Dist: >3cm Neck ROM: Limited Loose/Missing/Broken Teeth: No (Perm bridge and crown R lower) Heart: RRR Lungs: CTAB Assessment and Plan Assessment Anesthesia Assessment: Anesthesia Plan Discussed, Smoking Cess. Discussed and PAT Visit Final Anesthetic Review Family History of Problems with Anesthesia: No History of Problems with Anesthesia: Yes (Leg weakness s/p ~7 hour jaw surgery) Documented by User: Lety Obrien DO 11/08/23 07:28 [facility] Past Medical History Medical History (Updated 11/02/23 @ 12:38 by Beverly Dyer RN) Polyarthralgia Raynauds phenomenon DDD (degenerative disc disease), cervical Mediastinal mass Asthma Chronic pain syndrome Costochondritis Thrombocytosis TMJ (temporomandibular joint syndrome) Numbness and tingling of left leg Tremors of nervous system Lyme disease Hypersomnia Snoring Hyperlipidemia HTN (hypertension) GERD (gastroesophageal reflux disease) Generalized headaches Back pain Arthritis Family History Family History Father Heart disease Cancer Prostate cancer Mother Dementia Congestive heart failure Family history of problems with anesthesia: No Surgical History Surgical History (Updated 11/02/23 @ 12:42 by Beverly Dyer RN) History of mandibular surgery S/P cervical spinal fusion Hx of cervical spine surgery Hx of endoscopy Hx of colonoscopy History of salpingo-oophorectomy History of laparoscopy Hx of arthroscopy Hx of tubal ligation Hx of hysterectomy, total Hx of shoulder surgery Hx of knee surgery Social History Social History Housing: House Are you a primary daycare manager to a significant other at home: No Do you presently have visiting nurse or other home services: No Alcohol intake: current Patient Tobacco Use Status: Current everyday Tobacco user Tobacco use type: Cigarette Cigarettes Per Day: 2 Years Smoked: 26 e-Cigarette/Vaping Use: Never Used Second Hand Smoke Exposure: No Use of substances other than those prescribed or required for medical reasons: No Have you been hit, kicked, punched, or otherwise hurt by someone within the past year? If so, by whom?: No Are you DNR?: No Advance Directives: No Advance Directives Information Provided: Yes Advance Directives on File: No Recently lost weight without trying: No Eating poorly because of decreased appetite: No Nutrition Risks: No Nutritional Risk Poor oral hygiene: No (permanent bridge lower right/one crown lower right) service: No Current occupational status: disabled Current occupational exposures/hazards: No Cognitive needs: No Hearing needs: No Vision needs: No Meds Allergies Allergy/AdvReac Type Severity Reaction Status Date / Time Seasonal Allergies Allergy Severe Itchy Eyes Verified 10/10/23 10:40 lisinopril AdvReac Severe Cough Verified 10/10/23 10:40 pregabalin [From Lyrica] AdvReac Severe Shortness Verified 10/10/23 10:40 of Breath celecoxib [From Celebrex] AdvReac Intermediate Hypertensio Verified 11/01/23 10:03 n varenicline [From Chantix] AdvReac Intermediate Depression Verified 11/01/23 10:03 Home Medications Medication Instructions Recorded Confirmed Last Taken Type cyclosporine 0.05 % eye drops in a 1 drp ophthalmic (eye) Q12H 07/03/23 11/08/23 11/08/23 History dropperette (Restasis) omega 5-emb-jjr-fish oil 300 1 cap PO QAM 07/03/23 11/02/23 11/07/23 History mg-1,000 mg capsule (Fish Oil) meloxicam 15 mg tablet 15 mg PO QAM 07/27/23 11/08/23 11/07/23 History propranolol 60 mg capsule,24 60 mg PO BEDTIME 08/28/23 11/08/23 11/07/23 History hr,extended release magnesium gluconate 27 mg 27 mg PO BID 10/05/23 11/08/23 11/07/23 History magnesium (500 mg) tablet (Mag-G) diltiazem HCl 180 mg capsule,24 180 mg PO QAM 11/02/23 11/02/23 11/08/23 05:45 History hr,extended release (Tiadylt ER) fluoxetine 20 mg capsule 40 mg PO QAM 11/02/23 11/08/23 11/07/23 History montelukast 10 mg tablet 10 mg PO QAM 11/02/23 11/08/23 11/07/23 History (Singulair) omeprazole 20 mg capsule,delayed 20 mg PO QAM 11/02/23 11/02/23 11/08/23 05:45 History release telmisartan 80 mg tablet 80 mg PO QAM 11/02/23 11/08/23 11/07/23 History Exam Exam Date and Time: November 08, 2023 0715 Height,Weight and Vital Signs: Height 5 ft Weight 86.183 kg Vital Signs Pulse Rate 78 11/02/23 12:47 Respiratory Rate 20 11/02/23 12:47 Blood Pressure 171/87 H 11/02/23 12:47 Pulse Oximetry 96 11/02/23 12:47 Oxygen Delivery Method Room Air 11/02/23 12:47 Temperature 98.5 F 11/08/23 06:29 Pulse Rate 73 11/08/23 06:29 Respiratory Rate 18 11/08/23 06:29 Blood Pressure 163/93 H 11/08/23 06:29 Pulse Oximetry 97 11/08/23 06:29 Oxygen Delivery Method Room Air 11/08/23 06:29 Airway Mallampati Class: III TM Dist: >3cm Neck ROM: Limited Loose/Missing/Broken Teeth: No Heart: S1S2 Assessment and Plan Assessment Anesthesia Assessment: Anesthesia Plan Discussed and Chart Reviewed Final Anesthetic Review Family History of Problems with Anesthesia: No NPO: Yes ASA Class: II Final Preanesthetic Review: No Changes in Pt Med Stat, Meds/Allgs Chart Reviewed, Consent Obtained/Reviewed and Anes Risks/Benef Reviewed Patient Risk: Low Procedure Risk: Intermediate Anesthetic Plan Anesthetic Plan: GA and Agree w/ Assess. and Plan Disposition: Standard PACU
--- NOTE | 2023-11-08 09:35 | P.OP_ITS ---
Operative Note Operative Note Date of Service: 11/08/23 Narrative: Preoperative diagnosis: Anterior mediastinal mass Postop diagnosis: The same Procedure thorascopic excision anterior mediastinal mass/thymoma, intercostal nerve block Surgeon: Isai Lining Strap Closer: Ren Mcneil Type of Anesthesia: Double-lumen general Indication for surgery: Isolated anterior mediastinal mass with no evidence of gross invasion or other malignant/invasive features. Mediastinum otherwise within normal limits. Findings: Patient brought to the operating room, placed on operative table supine position, after an adequate level of double-lumen general anesthesia was induced, patient had a IV bag placed below her left shoulder, and the left arm was draped the superiorly. The left and right chest were prepped and draped in usual sterile fashion. Using the left chest, 5th intercostal space mid axillary line port placement after 1 lung anesthesia was obtained on the left side, 5 mm port was placed and then camera advanced with findings as noted above. CO2 insufflation at 8 mm of CO2 was undertaken. A 2nd 3rd intercostal space anterior axillary line port was placed under direct vision followed by a subxiphoid port also placed under direct vision. Pericardial fat around the anterior mediastinal mass was dissected off the pericardium. Commencing on the left side, pleura was scored using ligature device just medial to the left phrenic nerve, which was preserved throughout the procedure. Next pleura of the superior aspect of the thymus gland in the neck was again scored using ligature device. Anterior thymic mass was then sequentially dissected off the pericardium. Dissection into the upper mediastinum with dissection off the the left innominate vein and the mass was dissected off this with both right and left superior horns brought into the chest from the neck and the venous drainage to the innominate veins were identified, skeletonized, clipped and then transected. Right side was similarly approached just medial to the phrenic vein and circumferential dissection using ligature device was accomplished by scoring the pleura, and specimen was then placed completely dissected free and placed in an Endo-Catch bag, a retrieved through the subxiphoid port. Chest cavity was very copiously irrigated and secured hemostasis. Through the prior camera port, chest tube was placed in the left hemithorax and connected to a Pleur-evac. Remaining ports were removed under direct thoroscopic view. Wounds were closed in the following manner subxiphoid wound had its fascia was reapproximated using interrupted 0 Vicryl suture. Interrupted inverted deep dermal 3-0 Vicryl sutures followed by running subcuticular 4-0 Vicryl sutures were placed. Chest tube was secured the skin using 0 silk suture and port site was further closed using interrupted 3-0 Vicryl sutures. Remaining port site was closed using interrupted 3-0 Vicryl sutures. Intercostal nerve block to all port sites was performed using Exparel. Sponge, needle, and instrument counts reported correct. Patient tolerated the procedure well and emerged from anesthesia stable condition. EBL minimal
[2023-11-08] MEDS: oxyCODONE HCl Immed Release 5 MG TABLET PO ×3 (10:36→19:46)
[2023-11-08] MEDS: HYDROmorphone HCl 0.5 MG/0.5 ML SYRINGE IVPUSH ×3 (12:10→23:49)
--- NOTE | 2023-11-08 13:09 | PHA.MEDREC ---
Pharmacy Consult ? Medication Reconciliation Pharmacy has completed the medication reconciliation. reviewed med rec done by nursing
--- NOTE | 2023-11-08 13:15 | P.CONHOSP_ITS ---
History of Present Illness Data of Consult Service Date: 11/08/23 Primary Care Provider: Amrik Mendoza MD [facility] Reason for consult: Medical management Patient is a 57-year-old female with a PMH significant for HTN, HLD, GERD, mild persistent asthma, chronic Lyme disease, TMJ, and polyarthralgias who is admitted to the hospital under thoracic surgery for elective anterior mediastinal mass excision that was an incidental finding on CT. Medical consult for medical management. POD #0. Patient reports pain moderately controlled with current analgesics. States still experiences some pain with deep breathing, cough, and movement. Otherwise denies any acute medical complaints. Chronic musculoskeletal pain that baseline. Chronic cough and SOB at baseline. No chest pain/pressure, palpitations. Fever, chills, nausea, vomiting, abdominal pain. Review of Systems 2 Review of Systems: Pain with cough, deep breathing, and movement Chronic cough Chronic shortness of breath Chronic musculoskeletal pain PMFSH Medical History Polyarthralgia Raynauds phenomenon DDD (degenerative disc disease), cervical Mediastinal mass Asthma Chronic pain syndrome Costochondritis Thrombocytosis TMJ (temporomandibular joint syndrome) Numbness and tingling of left leg Tremors of nervous system Lyme disease Hypersomnia Snoring Hyperlipidemia HTN (hypertension) GERD (gastroesophageal reflux disease) Generalized headaches Back pain Arthritis Family History Father Heart disease Cancer Prostate cancer Mother Dementia Congestive heart failure Surgical History History of mandibular surgery S/P cervical spinal fusion Hx of cervical spine surgery Hx of endoscopy Hx of colonoscopy History of salpingo-oophorectomy History of laparoscopy Hx of arthroscopy Hx of tubal ligation Hx of hysterectomy, total Hx of shoulder surgery Hx of knee surgery Social History Housing: House Are you a primary home child care provider to a significant other at home: No Do you presently have visiting nurse or other home services: No Alcohol intake: current Patient Tobacco Use Status: Current everyday Tobacco user Tobacco use type: Cigarette Cigarettes Per Day: 2 Years Smoked: 26 e-Cigarette/Vaping Use: Never Used Second Hand Smoke Exposure: No service: No Current occupational status: disabled Current occupational exposures/hazards: No Cognitive needs: No Hearing needs: No Vision needs: No Meds Allergies Allergy/AdvReac Type Severity Reaction Status Date / Time Seasonal Allergies Allergy Severe Itchy Eyes Verified 10/10/23 10:40 lisinopril AdvReac Severe Cough Verified 10/10/23 10:40 pregabalin [From Lyrica] AdvReac Severe Shortness Verified 10/10/23 10:40 of Breath celecoxib [From Celebrex] AdvReac Intermediate Hypertensio Verified 11/01/23 10:03 n varenicline [From Chantix] AdvReac Intermediate Depression Verified 11/01/23 10:03 Active Medications: Current Medications Albuterol Sulfate (Albuterol Sulfate 90 Mcg 8 Gm Inhaler) 2 puff INHALE Q6H PRN PRN Reason: Shortness Of Breath Benzonatate (Benzonatate 100 Mg Capsule) 100 mg PO BID PRN PRN Reason: cough Bupropion HCl (Bupropion Hcl Xl 300 Mg Tab.Er.24h) 300 mg PO DAILY [facility] Buspirone HCl (Buspirone Hcl 5 Mg Tablet) 15 mg PO BID [facility] Cyclobenzaprine HCl (Cyclobenzaprine Hcl 10 Mg Tablet) 10 mg PO TID [facility] Diltiazem HCl (Diltiazem Hcl Cd 180 Mg Cap.Er.24h) 180 mg PO DAILY [facility]; Protocol Docusate Sodium (Docusate Sodium 100 Mg Capsule) 100 mg PO BID [facility] Fluoxetine HCl (Fluoxetine Hcl 20 Mg Capsule) 40 mg PO DAILY [facility] Fluticasone/Vilanterol (Fluticasone/Vilanterol 200/25 Blst.W.Dev) 1 puff INHALE RDAILY [facility] Heparin Sodium (Porcine) (Heparin Sodium,Porcine 5,000 Unit/Ml Vial) 5,000 unit SUBCUT Q8H [facility] Acetaminophen (Ofirmev) 1,000 mg in 100 mls @ 400 mls/hr IV Q6H [facility] Lactated Ringer's (Lr) 1,000 mls @ 80 mls/hr IVCONT .[id number] [facility] Lorazepam (Lorazepam 1 Mg Tablet) 1 mg PO DAILY PRN PRN Reason: anxiety Melatonin (Melatonin 3 Mg Tablet) 6 mg PO BEDTIME PRN PRN Reason: Insomnia Montelukast Sodium (Montelukast Sodium 10 Mg Tablet) 10 mg PO DAILY [facility] Morphine Sulfate (Morphine Sulfate 2 Mg/Ml Cartridge) 4 mg IVPUSH Q4H PRN; Protocol PRN Reason: Pain, Severe (Pain Scale 7-10) Non-Formulary Medication (Cyclosporine [Restasis]) 1 drop EYE-BOTH Q12H [facility] Omeprazole (Omeprazole 20 Mg Capsule.Dr) 20 mg PO DAILY@0630 [facility] Ondansetron HCl (Ondansetron Hcl 4 Mg/2 Ml Vial) 4 mg IVPUSH Q8H PRN PRN Reason: Nausea and Vomiting Oxycodone HCl (Oxycodone Hcl Immed Release 5 Mg Tablet) 5 mg PO Q4H PRN PRN Reason: Pain, Moderate(Pain Scale 4-6) Propranolol HCl (Propranolol Hcl La 60 Mg Cap.Sa.24h) 60 mg PO BEDTIME [facility]; Protocol Sodium Chloride (0.9 % Sodium Chloride Flush 3 Ml Syringe) 3 ml IVFLUSH QSHIFT [facility] Valsartan (Valsartan 160 Mg Tablet) 160 mg PO DAILY [facility] Home Medications Medication Instructions Recorded Confirmed Last Taken Type cyclosporine 0.05 % eye drops in a 1 drp ophthalmic (eye) Q12H 07/03/23 11/08/23 11/08/23 History dropperette (Restasis) omega 3-omk-jdq-fish oil 300 1 cap PO QAM 07/03/23 11/02/23 11/07/23 History mg-1,000 mg capsule (Fish Oil) meloxicam 15 mg tablet 15 mg PO QAM 07/27/23 11/08/23 11/07/23 History propranolol 60 mg capsule,24 60 mg PO BEDTIME 08/28/23 11/08/23 11/07/23 History hr,extended release magnesium gluconate 27 mg 27 mg PO BID 10/05/23 11/08/23 11/07/23 History magnesium (500 mg) tablet (Mag-G) diltiazem HCl 180 mg capsule,24 180 mg PO QAM 11/02/23 11/02/23 11/08/23 05:45 History hr,extended release (Tiadylt ER) fluoxetine 20 mg capsule 40 mg PO QAM 11/02/23 11/08/23 11/07/23 History montelukast 10 mg tablet 10 mg PO QAM 11/02/23 11/08/23 11/07/23 History (Singulair) omeprazole 20 mg capsule,delayed 20 mg PO QAM 11/02/23 11/02/23 11/08/23 05:45 History release telmisartan 80 mg tablet 80 mg PO QAM 11/02/23 11/08/23 11/07/23 History Physical Exam 2 Vital Signs and Narrative: Vital Signs: Last Vital Signs Temp 96.6 F L 11/08/23 12:56 Pulse 71 11/08/23 12:56 Resp 20 11/08/23 12:56 BP 124/72 11/08/23 12:56 Pulse Ox 95 11/08/23 12:56 O2 Del Method Nasal Cannula 11/08/23 12:56 O2 Flow Rate 2 11/08/23 12:56 BMI result Body Mass Index 37.1 General: AOx3, no acute distress Resp: Coarse breath sounds bilaterally CVS: S1, S2, RRR GI: +BS, NT, no distention Skin: Warm, dry Neuro: Cranial nerves II-XII grossly intact bilaterally. Motor grossly intact bilaterally Extremities: No edema Psych: Appropriate affect Results Labs 11/02/23 13:46 11/02/23 13:46 Labs: Laboratory Results - last 24 hr 11/02/23 13:38 Blood Type B Negative Antibody Screen NEGATIVE Crossmatch See Detail Imaging Radiologist's Impressions: Impressions Chest X-Ray 11/08/23 10:20 IMPRESSION: 1. Small left apical pneumothorax with chest tube in place. 2. Patchy opacity in the left upper lung may be related to postsurgical changes. Assessment and Plan (1) Mediastinal mass: Status: Acute Plan Patient is a 57-year-old female with a PMH significant for HTN, HLD, GERD, mild persistent asthma, chronic Lyme disease, TMJ, and polyarthralgias who is admitted to the hospital under thoracic surgery for elective anterior mediastinal mass excision that was an incidental finding on CT. Medical consult for medical management. POD #0. Mediastinal mass s/p VATS procedure Patient reports pain moderately controlled with current analgesics Still experiencing pain with deep breathing, cough, and movement Plan as per thoracic surgery Mild persistent asthma Currently not in exacerbation Coarse breath sounds bilaterally Continue home inhalers DuoNebs p.r.n. for SOB/wheezing HTN Well-controlled with current therapies Continue diltiazem, propranolol, telmisartan Chronic Lyme disease with chronic musculoskeletal/joint pain Continue meloxicam Continue analgesics Anxiety/depression Continue home meds Thank you for allowing us to participate in the care of this patient. Signing off at this time. Please re-consult if any acute complaints or issues arise.
[2023-11-08] MEDS: FLUoxetine HCl 20 MG CAPSULE 40 MG PO (13:25)
[2023-11-08] MEDS: buPROPion HCl XL 300 MG TAB.ER.24H PO (13:26)
[2023-11-08] MEDS: dilTIAZem HCL CD 180 MG CAP.ER.24H PO (13:26)
[2023-11-08] MEDS: Montelukast Sodium 10 MG TABLET PO (13:26)
[2023-11-08] MEDS: Lactated Ringers 1,000 ML 80 ML IVCONT (13:34)
[2023-11-08] MEDS: Acetaminophen 1,000 MG/100 ML PIGGYBACK 400 MG IV ×2 (14:02→20:28)
[2023-11-08] MEDS: Ketorolac Tromethamine 15 MG/ML VIAL IVPUSH (15:38)
[2023-11-08] MEDS: Morphine Sulfate 2 MG/ML CARTRIDGE 4 MG IVPUSH (16:17)
[2023-11-08] MEDS: Cyclobenzaprine HCl 10 MG TABLET PO ×2 (16:20→22:46)
[2023-11-08] MEDS: Docusate Sodium 100 MG CAPSULE PO (19:46)
[2023-11-08] MEDS: LORazepam 1 MG TABLET PO (19:47)
[2023-11-08] MEDS: Propranolol HCL LA 60 MG CAP.SA.24H PO (19:48)
[2023-11-09] VITALS (8 sets, daily range): BP systolic 136–145; BP diastolic 73–90; PULSE 69–82; RESP 16–20; TEMP 36.3–37.1; O2SAT 93–96
[2023-11-09] MEDS: HYDROmorphone HCl 0.5 MG/0.5 ML SYRINGE IVPUSH ×3 (03:44→11:34)
[2023-11-09] MEDS: Acetaminophen 1,000 MG/100 ML PIGGYBACK 400 MG IV ×3 (03:45→16:37)
[2023-11-09] MEDS: Lactated Ringers 1,000 ML 80 ML IVCONT (03:52)
[2023-11-09] MEDS: Ketorolac Tromethamine 15 MG/ML VIAL IVPUSH (06:09)
[2023-11-09] MEDS: Omeprazole 20 MG CAPSULE.DR PO (06:10)
[2023-11-09 06:50] LABS: Basophils Percent Auto 0.2 % (0-2); Hematocrit 32.1 % (37.0-47.0); Hemoglobin 11.5 g/dl (12.0-16.0); Imm Gran Abs Auto 0.08 X10*3/uL (0.00-0.03); Imm Gran Pct Auto 0.6 % (0.0-0.4); Lymphocytes Absolute Auto 1.3 X10*3/uL (1.2-4.9); Lymphocytes Percent Auto 10.1 % (20-40); MANUAL DIFF FLAG SCAN; Mean Corpuscular HGB Conc 35.8 g/dl (31.0-35.0); Mean Corpuscular Hemoglobin 31.3 pg (27.0-33.0); Mean Corpuscular Volume 87.5 fL (80.0-98.0); Mean Platelet Volume 8.9 fL (9.4-12.3); Monocytes Absolute Auto 0.8 X10*3/uL (0.1-1.2); Monocytes Percent Auto 6.6 % (2-11); Neutrophils Absolute Auto 10.6 x10*3/uL (2.0-8.3); Neutrophils Percent Auto 82.5 % (45-73); PLT CLUMP 1; Red Blood Count 3.67 X10*6/uL (4.20-5.50); Red Cell Distribution Width 12.8 % (11.0-16.0); SCAN SMEAR FLAG 1
[2023-11-09 06:57] LABS: Anion Gap 15 (12-20); Blood Urea Nitrogen 8 mg/dL (9-16); Calcium 8.9 mg/dL (8.4-10.2); Carbon Dioxide 18 mmol/L (22-29); Chloride 102 mmol/L (96-108); Creatinine Clr Calc Pharmacy 92.1; Estimated Glomerular Filt Rate > 60; Glucose Random 111 mg/dL (60-115); Potassium 4.6 mmol/L (3.3-5.1); Sodium 130 mmol/L (135-145)
[2023-11-09 07:58] LABS: SLIDE REVIEW VERIFIED
[2023-11-09] MEDS: Heparin Sodium,Porcine 5,000 UNIT/ML VIAL 5000 UNIT SUBCUT ×2 (08:10→19:12)
[2023-11-09] MEDS: Valsartan 160 MG TABLET PO (08:11)
[2023-11-09] MEDS: busPIRone HCl 5 MG TABLET 15 MG PO ×2 (08:11→19:28)
[2023-11-09] MEDS: buPROPion HCl XL 300 MG TAB.ER.24H PO (08:11)
[2023-11-09] MEDS: Cyclobenzaprine HCl 10 MG TABLET PO ×3 (08:11→20:34)
[2023-11-09] MEDS: Docusate Sodium 100 MG CAPSULE PO ×2 (08:11→19:28)
[2023-11-09] MEDS: dilTIAZem HCL CD 180 MG CAP.ER.24H PO (08:11)
[2023-11-09] MEDS: Montelukast Sodium 10 MG TABLET PO (08:12)
[2023-11-09] MEDS: FLUoxetine HCl 20 MG CAPSULE 40 MG PO (08:12)
[2023-11-09 08:17] LABS: Platelet Count 383 X10*3/uL (160-400); White Blood Count 12.8 X10*3/uL (4.8-10.8)
--- NOTE | 2023-11-09 10:22 | HO.POSTANES ---
Post Anesthesia Evaluation Post Anesthesia Evaluation Date of Service: 11/09/23 Vital Signs: Vital Signs Temp Pulse Resp BP Pulse Ox O2 Del Method O2 Flow Rate 11/09/23 07:56 97.9 F 71 20 136/79 93 Nasal Cannula 1 11/09/23 03:32 97.8 F 82 18 143/73 H 96 Nasal Cannula 1 11/08/23 23:40 97.9 F 82 18 116/61 94 Room Air Anesthesia: General Endotracheal-GETA (double lumen tube) Mental Status: Awake Pain Control: Satisfactory (difficult to control) Nausea/Vomiting: Mild Hydration: Adequate Anesthesia-Related Issues: No Anes. Related Issues
--- NOTE | 2023-11-09 10:35 | PM.PNTS ---
Subjective Subjective Date of Service: 11/09/23 <Aletha Mcneil PA-C - Last Filed: 11/09/23 10:39> 11/09/23 <Kadeem Alex MD - Last Filed: 11/09/23 11:50> Interval history: Had difficulty with pain overnight. Somewhat improved this morning. OOB and ambulating to bathroom. <Aletha Mcneil PA-C - Last Filed: 11/09/23 10:39> Physical Exam Vital Signs: Vital Signs: Last Vital Signs Temp 97.9 F 11/09/23 07:56 Pulse 71 11/09/23 07:56 Resp 20 11/09/23 07:56 BP 136/79 11/09/23 07:56 Pulse Ox 93 11/09/23 07:56 O2 Del Method Nasal Cannula 11/09/23 07:56 O2 Flow Rate 1 11/09/23 07:56 BMI result Body Mass Index 37.0 <Aletha Mcneil PA-C - Last Filed: 11/09/23 10:39> Const: General: comfortable, no acute distress and alert <Aletha Mcneil PA-C - Last Filed: 11/09/23 10:39> Orientation/consciousness: patient oriented x3 <BETTIE Anne Last Filed: 11/09/23 10:39> Chest: Other: left chest tube in place, scant serosanguineous drainage, no air leak <Aletha Mcneil PA-C - Last Filed: 11/09/23 10:39> Resp: Effort & Inspection: normal respiratory effort <Aletha Mcneil PA-C - Last Filed: 11/09/23 10:39> Cardio: Rate: regular rate <BETTIE Anne Last Filed: 11/09/23 10:39> Skin: General skin exam: no rashes or lesions noted <BETTIE Anne Last Filed: 11/09/23 10:39> Neuro: General: patient oriented x3 and moves all extremities <BETTIE Anne Last Filed: 11/09/23 10:39> Procedures Date of Service Date of Service: 11/09/23 <Aletha Mcneil PA-C - Last Filed: 11/09/23 10:39> 11/09/23 <Kadeem Alex MD - Last Filed: 11/09/23 11:50> Progress Note: A&P Assessment and plan (1) Mediastinal mass: Status: Acute <Aletha Mcneil PA-C - Last Filed: 11/09/23 10:39> Assessment and Plan: POD #1 s/p left VATS, excision anterior mediastinal mass/thymoma, intercostal nerve block. Patient having pain at incisions. AM CXR shows ?small pneumo, no effusion. No official read yet. Chest tube with scant drainage, no air leak. Will remove chest tube today. Post procedure film in 1 hr. Wean O2. If remains stable and comfortable on PO analgesics, stable for dc to home today. Patient comfortable with plan. <Aletha Mcneil PA-C - Last Filed: 11/09/23 10:39> POD #1 s/p left VATS, excision anterior mediastinal mass/thymoma, intercostal nerve block. Patient having pain at incisions. AM CXR shows ?small pneumo, no effusion. No official read yet. Chest tube with scant drainage, no air leak. Will remove chest tube today. Post procedure film in 1 hr. Wean O2. If remains stable and comfortable on PO analgesics, stable for dc to home today. Patient comfortable with plan. As noted <Kadeem Alex MD - Last Filed: 11/09/23 11:50> Time Spent With Patient Time: Total time managing care of this patient today ____ minutes. <Aletha Mcneil PA-C - Last Filed: 11/09/23 10:39> Quality Stroke Does the patient have a stroke diagnosis?: No <Kadeem Alex MD - Last Filed: 11/09/23 11:50> VTE Prior VTE?: No <Kadeem Alex MD - Last Filed: 11/09/23 11:50> VTE Risk Level:: Surgical - low <Kadeem Alex MD - Last Filed: 11/09/23 11:50> VTE Device Contraindication: N/A - Device Ordered <Kadeem Alex MD - Last Filed: 11/09/23 11:50> VTE Drug Contraindication: N/A - Med Ordered <Kadeem Alex MD - Last Filed: 11/09/23 11:50>
--- NOTE | 2023-11-09 11:16 | MHC.CM.PN ---
Pt lives with her , she is independent, does not have home health services, she said for medical equipment, her daughter will be getting her a walker. She has had VNA in the past, her surgeon recommends she have VNA nursing for dressing changes, referral to go out today. will transport home upon DC. CM to follow and assist with DC planning.
[2023-11-09] MEDS: NaPROXEN 500 MG TABLET PO ×2 (11:33→19:28)
[2023-11-09] MEDS: 0.9 % Sodium Chloride Flush 3 ML SYRINGE IVFLUSH (16:39)
[2023-11-09] MEDS: oxyCODONE HCl Immed Release 5 MG TABLET PO ×2 (16:43→20:33)
[2023-11-09] MEDS: Propranolol HCL LA 60 MG CAP.SA.24H PO (19:28)
[2023-11-10] MEDS: 0.9 % Sodium Chloride Flush 3 ML SYRINGE IVFLUSH ×2 (00:17→08:21)
[2023-11-10] MEDS: Heparin Sodium,Porcine 5,000 UNIT/ML VIAL 5000 UNIT SUBCUT ×2 (02:44→10:16)
[2023-11-10] MEDS: Acetaminophen 1,000 MG/100 ML PIGGYBACK 400 MG IV ×3 (02:45→14:36)
[2023-11-10 03:44] VITALS: BP 125/96; PULSE 65; RESP 18; TEMP 36.3; O2SAT 94
[2023-11-10] MEDS: Omeprazole 20 MG CAPSULE.DR PO (06:09)
[2023-11-10 07:42] VITALS: BP 136/78; PULSE 62; RESP 20; TEMP 36.4; O2SAT 93
[2023-11-10 08:00] VITALS: O2SAT 95
[2023-11-10] MEDS: FLUoxetine HCl 20 MG CAPSULE 40 MG PO (08:22)
[2023-11-10] MEDS: dilTIAZem HCL CD 180 MG CAP.ER.24H PO (08:22)
[2023-11-10] MEDS: NaPROXEN 500 MG TABLET PO (08:23)
[2023-11-10] MEDS: busPIRone HCl 5 MG TABLET 15 MG PO (08:23)
[2023-11-10] MEDS: buPROPion HCl XL 300 MG TAB.ER.24H PO (08:24)
[2023-11-10] MEDS: Valsartan 160 MG TABLET PO (08:24)
[2023-11-10] MEDS: Montelukast Sodium 10 MG TABLET PO (08:25)
[2023-11-10] MEDS: Docusate Sodium 100 MG CAPSULE PO (08:25)
[2023-11-10] MEDS: Cyclobenzaprine HCl 10 MG TABLET PO ×2 (08:25→14:30)
[2023-11-10 10:00] VITALS: O2SAT 96
[2023-11-10 11:43] VITALS: BP 132/89; PULSE 69; RESP 16; TEMP 36.2; O2SAT 97
[2023-11-10] MEDS: oxyCODONE HCl Immed Release 5 MG TABLET PO (13:37)
[2023-11-10 15:16] VITALS: BP 135/71; PULSE 70; RESP 16; TEMP 36.7; O2SAT 96
--- NOTE | 2023-11-10 15:24 | PM.PNTS ---
Subjective Subjective Date of Service: 11/10/23 Interval history: Complaining of some mild shortness of breath with the chest x-ray demonstrates some atelectasis but no pneumothorax or any other acute pathology. Patient has a history of costochondritis as well as taking inhalers at home. Otherwise tolerating her diet, out of bed, using incentive spirometry, on room air. Physical Exam Vital Signs: Vital Signs: Last Vital Signs Temp 98.1 F 11/10/23 15:16 Pulse 70 11/10/23 15:16 Resp 16 11/10/23 15:16 BP 135/71 11/10/23 15:16 Pulse Ox 96 11/10/23 15:16 O2 Del Method Room Air 11/10/23 15:16 O2 Flow Rate 1 11/09/23 07:56 Oxygen Flow Rate 0 11/09/23 08:22 BMI result Body Mass Index 37.0 Chest: Other: Chest x-ray findings as noted. Dressings clean dry and intact. Procedures Date of Service Date of Service: 11/10/23 Progress Note: A&P Assessment and plan (1) Mediastinal mass: Status: Acute Plan Patient wishes to be discharged home. Discharge instructions per chart. Questions answered. Patient will see me as directed or p.r.n.. Time Spent With Patient Time: Total time managing care of this patient today ____ minutes. Quality Stroke Does the patient have a stroke diagnosis?: No VTE Prior VTE?: No VTE Risk Level:: Surgical - low VTE Device Contraindication: N/A - Device Ordered VTE Drug Contraindication: N/A - Med Ordered
--- NOTE | 2023-11-13 13:07 | PM.DS ---
DS: Providers Provider Date of Service: 11/10/23 Primary care physician: Amrik Mendoza MD Attending physician on admission: Kadeem Alex Consults: 11/08/23 09:29 Consult to Hospitalist Routine Comment: Consulting Provider: Hospitalist Reason For Exam: s/p VATS, excision of mediastinal mass, HTN, asthm Attending physician on discharge: Kadeem Alxe DS: Diagnosis Discharge Diagnosis (1) Mediastinal mass: Status: Acute DS: Summary Hospital Course Hospital Course: HPI AT ADMISSION: Patient presents with her for evaluation of an incidentally found anterior mediastinal mass. She has been worked up for pulmonary issues and the above-mentioned was identified.Patient does not have associated with myasthenia gravis. Does have a modest smoking history of 1/2 pack per day for 25+ years which is decreased over the last few months. She denies any significant change in diet, energy, or appetite. He has a chronic cough which he has had secondary to asthma but denies any hemoptysis, chest pain or wheezing. Chart was reviewed and patient evaluated. The patient does not wish to undergo observation with surveillance. Biopsy will not change the management. If the patient's diagnosis is benign, we will still removed with the process because she wishes to have removed. It is is malignant, she will also require excision. Risks, benefits, alternatives of thorascopic possible open resection of anterior mediastinal mass reviewed with the patient and included but not limited to bleeding, infection, recurrence, numbness, pain, scarring, phrenic nerve injury and the patient wishes to proceed and now presents for the planned procedure. HOSPITAL COURSE: On 3, thorascopic excision anterior mediastinal mass/thymoma, intercostal nerve block was performed by Dr. Alex without immediate complication. Patient tolerated the procedure well and was admitted for observation. Hospitalist consult was obtained for medical management. She had an uncomplicated recovery course. On POD #1, she had incisional pain that was relieved with IV analgesics. Her chest tube output was minimal without an air leak. CXR showed no gross pneumothorax or effusion and the chest tube was therefore removed. She was tolerating a solid diet. Her activity was increased. On POD #2, she had some mild shortness of breath and f/u CXR showed mild atelectasis. She overall felt improved and ready for discharge to home. On the day of discharge, she was tolerating a solid diet. She was OOB and ambulating without difficulty. Her incisions were clean and chest tube site with dry dressing in place. Her vitals were stable. She was encouraged to continue her incentive spirometer and inhalers as needed. She was discharged to home on 11/10/23 in stable condition with VNA services for chest tube site dressing changes. She is to follow up in the office in [address] Alex. Status at Discharge Functional status at discharge: independent ambulation Overall status at discharge: patient is progressing back to baseline Time Attestation Discharge Coordination Time (in mins): 31 Quality: Safe Use of Opioids Does Pt have an Active Cancer Diagnosis on the Problem List?: No Quality: Stroke Does the patient have a stroke diagnosis?: No Physical Exam Vital Signs: Vital Signs: Last Vital Signs Temp 98.1 F 11/10/23 15:16 Pulse 70 11/10/23 15:16 Resp 16 11/10/23 15:16 BP 135/71 11/10/23 15:16 Pulse Ox 96 11/10/23 15:16 O2 Del Method Room Air 11/10/23 15:16 O2 Flow Rate 1 11/09/23 07:56 Oxygen Flow Rate 0 11/09/23 08:22 BMI result Body Mass Index 37.0 Resp: Effort & Inspection: normal respiratory effort and no respiratory distress Skin: General skin exam: no rashes or lesions noted DS: Data Data Completed and Pending Completed studies during hospitalization [Text1]: 11/08/23 08:57 Surgical [PTH] Routine Soft tissue, anterior mediastinum, excision: Benign thymic and prominent adipose tissue; negative for malignancy. Discharge Plan Discharge Patient Disposition: Home Health Service Referrals: Amrik Mendoza MD [Primary Care Provider] - 1 Week Kadeem Alex MD [Physician] - 1 Week Discharge Medications: New hydrocodone-acetaminophen 5-325 mg tablet 1 tab PO Q4-6H PRN (Reason: pain) Qty: 30 0RF Rx Instructions: Partial Fill upon patient request. No Action diclofenac sodium 1 % gel 4 g topical QID PRN (Reason: pain) 30 Days Qty: 100 2RF Rx Instructions: apply to single knee, ankle, foot; for foot includes sole/toes/top of foot cyclobenzaprine 10 mg tablet 10 mg PO TID Qty: 84 0RF buspirone 10 mg tablet 15 mg PO BID Qty: 90 0RF lorazepam [Ativan] 1 mg tablet 1 mg PO DAILY PRN (Reason: anxiety) Qty: 15 0RF Rx Instructions: [facility] verified. Partial refill upon request. bupropion HCl 300 mg tablet extended release 24 hr 300 mg PO QAM 90 Days Qty: 90 4RF fluticasone propion-salmeterol [Wixela Inhub] 500-50 mcg/dose blister with device 1 inh inhalation Q12H 90 Days Qty: 3 0RF (DME) xeroform 5x9 See Rx Instructions .Route .MEDSUPPLY Qty: 2 0RF Rx Instructions: As directed (DME) cloth tape 3 See Rx Instructions .Route .MEDSUPPLY Qty: 1 0RF Rx Instructions: As directed diltiazem HCl [Tiadylt ER] 180 mg capsule,extended release 24 hr 180 mg PO QAM telmisartan 80 mg tablet 80 mg PO QAM omeprazole 20 mg capsule,delayed release(DR/EC) 20 mg PO QAM montelukast [Singulair] 10 mg tablet 10 mg PO QAM fluoxetine 20 mg capsule 40 mg PO QAM cyclosporine [Restasis] 0.05 % dropperette 1 drp ophthalmic (eye) Q12H Rx Instructions: both eyes omega 1-fwu-[id number]-fish oil [Fish Oil] 300-1,000 mg capsule 1 cap PO QAM propranolol 60 mg capsule,extended release 24 hr 60 mg PO BEDTIME benzonatate 100 mg capsule 100 mg PO BID PRN (Reason: cough) Qty: 30 0RF albuterol sulfate 90 mcg/actuation HFA aerosol inhaler 2 puff inhalation Q6H PRN (Reason: Shortness Of Breath) 30 Days Qty: 8.5 4RF meloxicam 15 mg tablet 15 mg PO QAM magnesium gluconate [Mag-G] 27 mg magnesium (500 mg) tablet 27 mg PO BID Discharge Orders: Discharge Order (Routine); Ordered 11/10/23 Ordered By: Kadeem Alex Diet: Advance to usual diet Activity on Discharge: No heavy lifting Activity Restrictions/Additional Instructions: Ice to wound 20 minutes several times today and tomorrow. May shower in 2 days. Remove outside dressing only. Leave Steri-Strips intact. No strenuous activities. VNA for dressing changes of chest tube site Discharge Date/Time: 11/10/23 17:30
== END 2023-11-10 17:30 | disposition home health service (06) ==
LOC: HO.SSS 05:43 → HO.IMC 12:01
PROVIDERS: Nurse Practitioner; Physician Assistant Surgical; PCP Family Medicine; Visit Provider Surgery
PROC: (CPT 32662; principal; 2023-11-08 07:30)
DX: J98.59 Other diseases of mediastinum, not elsewhere classified (principal); D15.2 Benign neoplasm of mediastinum; R06.02 Shortness of breath; R05.3 Chronic cough; D75.839 Thrombocytosis, unspecified; M94.0 Chondrocostal junction syndrome [Tietze]; M25.50 Pain in unspecified joint; I10 Essential (primary) hypertension; E78.5 Hyperlipidemia, unspecified; J45.30 Mild persistent asthma, uncomplicated; K21.9 Gastro-esophageal reflux disease without esophagitis; Z79.899 Other long term (current) drug therapy; F17.210 Nicotine dependence, cigarettes, uncomplicated
CPT/HCPCS: 32662; 36415; 71045; 80048; 85025; 85027; 86850; 86900; 86901; 86923; 88305; 93005; A7041; C9290; J0131; J0665; J0690; J1100; J1170; J1644; J1885; J2250; J2270; J2371; J2405; J2704; J3010; J7120

== ENCOUNTER → 2023-11-08 05:41 | Outpatient (BNV) | payer OTHER, SELFPAY | PROVIDERS: PCP Family Medicine; Visit Provider Student in an Organized Health Care Education/Training Program | DX: J98.59 Other diseases of mediastinum, not elsewhere classified (principal); J45.30 Mild persistent asthma, uncomplicated; I10 Essential (primary) hypertension; A69.20 Lyme disease, unspecified | CPT/HCPCS: 99222 ==

== ENCOUNTER → 2023-11-08 05:41 | Outpatient (BNV) | payer OTHER, SELFPAY | PROVIDERS: PCP Family Medicine; Visit Provider Surgery | DX: J98.59 Other diseases of mediastinum, not elsewhere classified (principal) | CPT/HCPCS: 32662; 99024 ==

== ENCOUNTER → 2023-11-08 14:50 | Outpatient (BNV) | payer OTHER, SELFPAY | PROVIDERS: PCP Family Medicine; Visit Provider Internal Medicine Cardiovascular Disease | DX: R07.9 Chest pain, unspecified (principal) | CPT/HCPCS: 93010 ==

== ENCOUNTER 2023-11-19 09:07 | Outpatient (AMB) | payer OTHER, SELFPAY ==
--- NOTE | 2023-11-19 09:08 | A.OFFVIS_ITS ---
Intake Vital Signs 11/19/23 09:16 Weight 190 lb BP 182/83 H Blood Pressure Location Rt brachial Position Sitting Pulse 71 Intake Visit Reasons: s/p VATS wedge resection Intake Note: Patient here s/p VATS wedge resection. Reports incisions healing well. Taking rx pain meds as needed. Patient c/o: feeling tired, fatigue. Developed blister from bandage adhesive but its healing. SX: 11-08-23. Md Physician Dermatologist Required: No Accompanied by: Spouse Allergies Seasonal Allergies Allergy (Severe, Verified 11/19/23 09:14) Itchy Eyes lisinopril Adverse Reaction (Severe, Verified 11/19/23 09:14) Cough pregabalin [From Lyrica] Adverse Reaction (Severe, Verified 11/19/23 09:14) Shortness of Breath celecoxib [From Celebrex] Adverse Reaction (Intermediate, Verified 11/19/23 09:14) Hypertension varenicline [From Chantix] Adverse Reaction (Intermediate, Verified 11/19/23 09:14) Depression HPI HPI Comments History of Present Illness Details Patient presents for follow-up with her . She has minimal incisional discomfort. She is fatigued but is slowly but steadily improving. No acute respiratory issues. Pathology was reviewed, benign. [facility] Medical History Polyarthralgia Raynauds phenomenon DDD (degenerative disc disease), cervical Mediastinal mass Asthma Chronic pain syndrome Costochondritis Thrombocytosis TMJ (temporomandibular joint syndrome) Numbness and tingling of left leg Tremors of nervous system Lyme disease Hypersomnia Snoring Hyperlipidemia HTN (hypertension) GERD (gastroesophageal reflux disease) Generalized headaches Back pain Arthritis Surgical History Mediastinal mass (11/08/23) History of mandibular surgery S/P cervical spinal fusion Hx of cervical spine surgery Hx of endoscopy Hx of colonoscopy History of salpingo-oophorectomy History of laparoscopy Hx of arthroscopy Hx of tubal ligation Hx of hysterectomy, total Hx of shoulder surgery Hx of knee surgery Family History Father Heart disease Cancer Prostate cancer Mother Dementia Congestive heart failure Social History (Reviewed 03/25/24 @ 09:17 by JHONNY Kimbrough Housing: House Are you a primary residential care facility manager to a significant other at home: No Do you presently have visiting nurse or other home services: No Alcohol intake: current Patient Tobacco Use Status: Current everyday Tobacco user Tobacco use type: Cigarette Cigarettes Per Day: 2 Years Smoked: 26 e-Cigarette/Vaping Use: Never Used Second Hand Smoke Exposure: No service: No Current occupational status: disabled Current occupational exposures/hazards: No Cognitive needs: No Hearing needs: No Vision needs: No Physical Exam Vital Signs: Last Vital Signs Pulse 71 11/19/23 09:16 BP 182/83 H 11/19/23 09:16 Chest Other: Wounds clean dry and intact healing very well. Assessment & Plan Assessment & Plan (1) Mediastinal mass: Onset Date: 11/08/23 Comment: Anterior mediastinal mass Dr. Kadeem Alex Code(s): J98.59 - Other diseases of mediastinum, not elsewhere classified Plan Patient has been given local instructions, and will follow-up p.r.n.. All questions answered. She will follow-up with pulmonology in early December . Coding Level of Care Code Global (82300) Diagnoses Mediastinal mass J98.59
[2023-11-19 09:16] VITALS: BP 182/83; PULSE 71
== END 2023-11-19 09:24 | disposition home or self-care (01) ==
PROVIDERS: PCP Family Medicine; Visit Provider Surgery
DX: J98.59 Other diseases of mediastinum, not elsewhere classified (principal)
CPT/HCPCS: 99024

== ENCOUNTER → 2023-11-19 09:07 | Outpatient (BNVA) | payer OTHER, SELFPAY | PROVIDERS: PCP Family Medicine; Visit Provider Surgery ==

== ENCOUNTER 2023-12-26 09:45 | Outpatient (AMB) | payer OTHER, SELFPAY ==
[2023-12-26 09:47] VITALS: BP 140/82; PULSE 78; O2SAT 98; BMI 37.0
--- NOTE | 2023-12-26 09:47 | A.OFFVIS_ITS ---
Vital Signs 12/26/23 09:47 Height 5 ft Weight 189 lb 6 oz BMI 37.0 BP 140/82 H Blood Pressure Location Rt brachial Position Sitting Pulse 78 Pulse Source Pulse Oximeter Pulse Oximetry (%) 98 Oxygen Delivery Method Room Air Intake Visit Reasons: dyspnea: 3 month f/u Allergies Seasonal Allergies Allergy (Severe, Verified 12/26/23 09:50) Itchy Eyes lisinopril Adverse Reaction (Severe, Verified 12/26/23 09:50) Cough pregabalin [From Lyrica] Adverse Reaction (Severe, Verified 12/26/23 09:50) Shortness of Breath celecoxib [From Celebrex] Adverse Reaction (Intermediate, Verified 12/26/23 09:50) Hypertension varenicline [From Chantix] Adverse Reaction (Intermediate, Verified 12/26/23 09:50) Depression HPI HPI dyspnea: 3 month f/u: Details: Lety is a pleasant 57 year old female, less than 10 pack year history, currently smokes 1/4 ppd, with underlying history of asthma, diagnosed as an adult and GERD, controlled on omeprazole. Since the last visit, she underwent thorascopic excision of anterior mediastinal mass on 11/10/[address] Alex which was negative for carcinoma. She feels as though she recovered well from the surgery. She continues to report suboptimal control on Advair with persistent dry cough and dyspnea on exertion. She denies chest tightness and wheezing. She was sent for allergy testing at the last visit, however did not complete. Of note, she does report dysphagia and persistent coughing with swallowing. [facility] Medical History Polyarthralgia Raynauds phenomenon DDD (degenerative disc disease), cervical Mediastinal mass Asthma Chronic pain syndrome Costochondritis Thrombocytosis TMJ (temporomandibular joint syndrome) Numbness and tingling of left leg Tremors of nervous system Lyme disease Hypersomnia Snoring Hyperlipidemia HTN (hypertension) GERD (gastroesophageal reflux disease) Generalized headaches Back pain Arthritis Surgical History Mediastinal mass (11/08/23) History of mandibular surgery S/P cervical spinal fusion Hx of cervical spine surgery Hx of endoscopy Hx of colonoscopy History of salpingo-oophorectomy History of laparoscopy Hx of arthroscopy Hx of tubal ligation Hx of hysterectomy, total Hx of shoulder surgery Hx of knee surgery Family History Father Heart disease Cancer Prostate cancer Mother Dementia Congestive heart failure Social History Housing: House Are you a primary complex care nurse practitioner to a significant other at home: No Do you presently have visiting nurse or other home services: No Alcohol intake: current Patient Tobacco Use Status: Current everyday Tobacco user Tobacco use type: Cigarette Cigarettes Per Day: 2 Years Smoked: 26 e-Cigarette/Vaping Use: Never Used Second Hand Smoke Exposure: No service: No Current occupational status: disabled Current occupational exposures/hazards: No Cognitive needs: No Hearing needs: No Vision needs: No Review of Systems Const Denies chills, Denies excessive sweating, Denies fever(s), Denies headache(s) and Denies night sweats Eyes Denies dry eyes, Denies irritation and Denies itchy eyes ENT Reports Normal hearing present, Denies headache(s), Denies nasal congestion, Denies nasal discharge, Denies post nasal drip and Denies sore throat Card Denies chest pain, Denies chest pain at rest, Denies chest pain with activity, Denies claudication, Denies leg edema, Denies orthopnea and Denies paroxysmal n octurnal dyspnea Resp Denies chest congestion, Denies excessive phlegm production, Denies pain on inspiration, Denies pain with cough, Denies stridor and Denies wheezing Musc Denies myalgias Neuro Reports Normal hearing present and Denies headache(s) Endo Denies excessive sweating Yaw/Lymph Denies lymphadenopathy Aller/Immun Denies itchy eyes, Denies seasonal rhinorrhea and Denies wheezing Physical Exam Vital Signs: Last Vital Signs Pulse 78 12/26/23 09:47 BP 140/82 H 12/26/23 09:47 Pulse Ox 98 12/26/23 09:47 Oxygen Delivery Method Room Air 12/26/23 09:47 BMI result Body Mass Index 37.0 Const General: cooperative, healthy appearing, comfortable, no acute distress, well developed and alert Nutritional Appearance: obese Orientation/consciousness: patient oriented x3 Limitations: no limitations HEENT Head: Yes normal to inspection, Yes normocephalic and Yes atraumatic Ears: hearing grossly normal bilaterally and external ears normal Eyes General: appearance normal, both eyes and all related structures Eyelids: Yes eyelids normal Sclerae: sclerae normal EOM: EOMs intact bilaterally Neck Neck: Yes normal visual inspection and Yes no lymphadenopathy Lymphatic: no lymphadenopathy noted Chest Chest palpation & inspection: normal inspection of the chest Resp Effort & Inspection: normal respiratory effort, able to speak in complete sentences, no audible wheezes, no cough, no stridor, not tachypneic, no tripod positioning and no use of accessory muscles Auscultation: clear to auscultation bilaterally Cardio Jugular venous distension: no JVD Rate: regular rate Rhythm: regular rhythm Skin Other: warm, dry General skin exam: no rashes or lesions noted Neuro General: patient oriented x3 Cranial nerves: Yes Normal hearing present Cognition (Neuro): normal cognition Gait exam (Neuro): Normal gait present Extrem General: Yes normal to inspection, Yes capillary refill normal, Yes no clubbing, cyanosis or edema and Yes no pedal edema Psych Appearance: grossly normal and well kempt Speech and movement: Normal speech and movement present and Clear speech present Affect: normal affect Attitude: cooperative Thought process: Normal thought process present Thought content: Normal thought content present Insight: Good insight present (Psych) Judgement: Good judgement present (Psych) Assessment & Plan Assessment & Plan (1) Asthma: Code(s): J45.909 - Unspecified asthma, uncomplicated Category: Medical (2) Environmental allergies: Code(s): Z91.09 - Other allergy status, other than to drugs and biological substances Category: Medical (3) Shortness of breath: Code(s): R06.02 - Shortness of breath Category: Medical (4) GERD (gastroesophageal reflux disease): Code(s): K21.9 - Gastro-esophageal reflux disease without esophagitis Category: Medical (5) Cough: Code(s): R05.9 - Cough, unspecified Category: Medical Qualifiers: Cough type: acute Qualified Code(s): R05.1 - Acute cough (6) Personal history of tobacco use: Code(s): Z87.891 - Personal history of nicotine dependence Category: Social Hx (7) Obesity (BMI 30-39.9): Code(s): E66.9 - Obesity, unspecified Category: Medical (8) Mediastinal mass: Onset Date: 11/08/23 Code(s): J98.59 - Other diseases of mediastinum, not elsewhere classified Category: Surgical (9) Dysphagia: Code(s): R13.10 - Dysphagia, unspecified Category: Medical Plan Lety's persistent symptoms are likely related to poor asthma control and continues to smoke. Smoking cessation reviewed. She also reported dysphagia and dry cough with eating. Will send for MBSS for dysphagia to rule out microaspiration contributing to cough. Advised to continue current medication regimen at this time and will follow up after MBSS to review results. All questions were answered and patient is in agreement of plan. Orders: Orders FL barium swallow modified Today R05.1 - Acute cough, R13.10 - Dysphagia, unspecified Coding Level of Care Code Est Pt Level 4 (57244) Diagnoses Asthma J45.909 Environmental allergies Z91.09 Shortness of breath R06.02 GERD (gastroesophageal reflux disease) K21.9 Acute cough R05.1 Cough type: acute Personal history of tobacco use Z87.891 Obesity (BMI 30-39.9) E66.9 Mediastinal mass J98.59 Dysphagia R13.10
== END 2023-12-26 10:15 | disposition home or self-care (01) ==
PROVIDERS: PCP Family Medicine; Visit Provider Nurse Practitioner Family
DX: J45.909 Unspecified asthma, uncomplicated (principal); Z91.09 Other allergy status, other than to drugs and biological substances; R06.02 Shortness of breath; K21.9 Gastro-esophageal reflux disease without esophagitis; R05.1 Acute cough; Z87.891 Personal history of nicotine dependence; E66.9 Obesity, unspecified; J98.59 Other diseases of mediastinum, not elsewhere classified; R13.10 Dysphagia, unspecified
CPT/HCPCS: 99214

== ENCOUNTER → 2023-12-26 09:45 | Outpatient (BNVA) | payer OTHER, SELFPAY | PROVIDERS: PCP Family Medicine; Visit Provider Nurse Practitioner Family ==

== ENCOUNTER 2023-12-26 10:30 | Outpatient (REF) | payer OTHER, SELFPAY ==
[2023-12-27 20:23] LABS: Class Alternaria alternata 0; Class Aspergillus fumigatus 0; Class Bermuda Grass 0; Class Birch 2; Class Cat Dander 3; Class Cladosporium herbarum 0; Class Cockroach 0; Class Common Ragweed 0; Class Cottonwood 0; Class Derm. pterony 2; Class Dermatophagoides farinae 3; Class Dog Dander 2; Class Elm 0; Class Maple Box Elder 0; Class Mountain Cedar 0; Class Mouse Urine Protein 2; Class Mugwort 0; Class Oak 1; Class Penicillium crysogenum 0; Class Rough Pigweed 0; Class Sheep Sorrel 0; Class Sycamore 0; Class Timothy Grass 0; Class Walnut Tree 0; Class White Ash 0; Class White Mulberry 0; D001 IgE D pteronyssinus 3.04 kU/L; D002 - IgE D farinae 4.39 kU/L; E005 - IgE Dog Dander 1.36 kU/L; E072-IgE Mouse Urine 2.58 kU/L; G002 IgE Bermuda Grass <0.10 kU/L; G006 - IgE Timothy Grass <0.10 kU/L; I006-IgE Cockroach, German <0.10 kU/L; Immunoglobulin E 138 kU/L (<OR=114); M001 IgE Penicillium chrysogen <0.10 kU/L; M002 - IgE Cladosporium herbar <0.10 kU/L; M003 - IgE Aspergillus fumigat <0.10 kU/L; M006 - IgE Alternaria alternat <0.10 kU/L; T001 IgE Maple/Box Elder <0.10 kU/L; T003 IgE Common Silver Birch 2.56 kU/L; T006 - IgE Cedar, Mountain <0.10 kU/L; T007 - IgE Oak, White 0.47 kU/L; T008 IgE Elm, American <0.10 kU/L; T010 - IgE Walnut <0.10 kU/L; T011 - IgE Maple Leaf Sycamore <0.10 kU/L; T014 - IgE Cottonwood <0.10 kU/L; T015 - IgE Ash, White <0.10 kU/L; T070 - IgE White Mulberry <0.10 kU/L; W001 - IgE Ragweed, Short <0.10 kU/L; W006 - IgE Mugwort <0.10 kU/L; W014 IgE Pigweed, Common <0.10 kU/L; W018 IgE Sheep Sorrel <0.10 kU/L
== END 2023-12-26 10:31 | disposition home or self-care (01) ==
LOC: HO.WFDLDS 10:30
PROVIDERS: Visit Provider Nurse Practitioner Family
DX: J45.909 Unspecified asthma, uncomplicated (principal); Z91.09 Other allergy status, other than to drugs and biological substances
CPT/HCPCS: 36415; 82785; 85025; 86003

== ENCOUNTER 2024-01-07 11:22 | Outpatient (AMB) | payer OTHER, SELFPAY ==
[2024-01-07 11:42] VITALS: BP 142/82; PULSE 84; O2SAT 97
--- NOTE | 2024-01-07 11:42 | MHC.OFFWIV ---
Intake Vital Signs 01/07/24 11:42 Height 5 ft BP 142/82 H Blood Pressure Location Rt brachial Position Sitting Pulse 84 Pulse Source Pulse Oximeter Pulse Oximetry (%) 97 Oxygen Delivery Method Room Air Intake Visit Reasons: EP Lower Back Pain Intake Note: pt is here for chronic back pain, requesting injection Patient Tobacco Use Status: Current everyday Tobacco user Allergies Seasonal Allergies Allergy (Severe, Verified 01/07/24 11:43) Itchy Eyes lisinopril Adverse Reaction (Severe, Verified 01/07/24 11:43) Cough pregabalin [From Lyrica] Adverse Reaction (Severe, Verified 01/07/24 11:43) Shortness of Breath celecoxib [From Celebrex] Adverse Reaction (Intermediate, Verified 01/07/24 11:43) Hypertension varenicline [From Chantix] Adverse Reaction (Intermediate, Verified 01/07/24 11:43) Depression Do you need a note to return to daycare/school/sports/work: No HPI HPI Comments History of Present Illness Details Patient presents to the walk-in today for sick visit Endorses 2 months bilateral lower back pain with radiation to the posterior thighs and bilateral groin Worse with standing, sitting, stairs and lying unaffected side Has been taking meloxicam and cyclobenzaprine without improvement Requesting Toradol injection today [facility] Medical History Polyarthralgia Raynauds phenomenon DDD (degenerative disc disease), cervical Mediastinal mass Asthma Chronic pain syndrome Costochondritis Thrombocytosis TMJ (temporomandibular joint syndrome) Numbness and tingling of left leg Tremors of nervous system Lyme disease Hypersomnia Snoring Hyperlipidemia HTN (hypertension) GERD (gastroesophageal reflux disease) Generalized headaches Back pain Arthritis Surgical History Mediastinal mass (11/08/23) History of mandibular surgery S/P cervical spinal fusion Hx of cervical spine surgery Hx of endoscopy Hx of colonoscopy History of salpingo-oophorectomy History of laparoscopy Hx of arthroscopy Hx of tubal ligation Hx of hysterectomy, total Hx of shoulder surgery Hx of knee surgery Family History Father Heart disease Cancer Prostate cancer Mother Dementia Congestive heart failure Social History Housing: House Are you a primary direct care professional to a significant other at home: No Do you presently have visiting nurse or other home services: No Alcohol intake: current Patient Tobacco Use Status: Current everyday Tobacco user Tobacco use type: Cigarette Cigarettes Per Day: 2 Years Smoked: 26 e-Cigarette/Vaping Use: Never Used Second Hand Smoke Exposure: No service: No Current occupational status: disabled Current occupational exposures/hazards: No Cognitive needs: No Hearing needs: No Vision needs: No Review of Systems Const All systems reviewed & are unremarkable except as noted in HPI and below Physical Exam Vital Signs: Last Vital Signs Pulse 84 01/07/24 11:42 BP 142/82 H 01/07/24 11:42 Pulse Ox 97 01/07/24 11:42 Oxygen Delivery Method Room Air 01/07/24 11:42 General: awake, alert, oriented. Answers questions appropriately. Fully engaged in examination. Skin: warm, dry, intact HEENT: Normocephalic. Hearing intact. Cardiac: External chest normal in appearance. Respiratory: No cough, audible wheezing or stridor. Abdomen: without gross distension. MS: No obvious swelling or deformities. Tender to palpation bilateral PSIS SHANI positive bilaterally Gaenslen positive bilaterally Thigh thrust positive bilaterally SI compression positive bilaterally Neurological: Oriented to person, place, time and situation. Thought process intact. Psychiatric: Appropriate mood and affect. Good judgment and insight. Office Meds ketorolac 30 mg/mL (1 mL) injection solution Performing Provider: Peggy Berkowitz APRN, HEAD OF ETHICS AND COMPLIANCE Performing Location: [facility] [place] Administered by: Maria Dolores Vega RN on 01/07/24 13:01 Dose Route Admin Location Dispensed Lot Number Expiration Date [facility] Hearing Aid Assistant 30 mg IM right gluteal 1 mL [id number] 10/25/24 1320-6256-05 HOSPIRA[employer]PFIZER Assessment & Plan Assessment & Plan (1) Low back pain: Code(s): M54.50 - Low back pain, unspecified (2) Sacroiliac joint dysfunction of both sides: Code(s): M53.3 - Sacrococcygeal disorders, not elsewhere classified Plan Toradol injection given, patient tolerated well Continue with Flexeril and meloxicam as needed. Do not take meloxicam for at least 8-10 hours after Toradol injections Patient advised on SI joint exercises to perform at home Follow up with PCP or return here for any new or worsening symptoms. Patient has follow up with PCP in 1 month. She was advised to discuss SI belt and potential referral to pain management for sacroiliac joint injections if pain persists. Orders: Orders AMB Ketorolac Injection Today M54.50 - Low back pain, unspecified Medications: New ketorolac 30 mg IM ONCE 1 mL 0RF M54.50 - Low back pain, unspecified Coding Level of Care Code Est Pt Level 3 (26973) Diagnoses Low back pain M54.50 Sacroiliac joint dysfunction of both sides M53.3
== END 2024-01-07 13:26 | disposition home or self-care (01) ==
PROVIDERS: PCP Family Medicine; Visit Provider Registered Nurse Emergency
DX: M54.50 Low back pain, unspecified (principal); M53.3 Sacrococcygeal disorders, not elsewhere classified
CPT/HCPCS: 96372; 99213; J1885

== ENCOUNTER 2024-01-16 10:08 | Outpatient (REF) | payer OTHER, SELFPAY ==
--- NOTE | ~2024-01-16 | FL_ITS ---
EXAMINATION: Modified Barium Swallows CLINICAL INFORMATION: Dysphagia COMPARISON: None TECHNIQUE: Modified barium swallow was performed under lateral fluoroscopy with patient in standing position. Barium mixed with solids and liquids of different consistencies was administered by the speech pathologist. Examination was recorded in the fluoroscopy suite. FINDINGS: No aspiration or laryngeal penetration was observed during this examination. There has been prior anterior cervical fusion with plate and screw construct and intervening cortical disc grafts spanning C4-C7. No obvious loosening or complication seen. Disc spaces appear fused. Left TMJ prosthesis noted in place. FLUOROSCOPY TIME: 1 minute 27 second Number of Spot Images: DOSE AREA PRODUCT: 537.9 uGy-m2 (microgray-meter squared) FL/FL barium swallow modified IMPRESSION: No aspiration or laryngeal penetration was observed during this examination. Refer to the speech therapy report for further clarification. This procedure was performed by Pablo Coyle PA-C, and supervised by Dr. Mayo
--- NOTE | 2024-01-28 14:37 | MHC.SL.IMP ---
Date of Plan of Treatment: 01/16/24 Onset of Symptoms/Illness: 12/27/23 Date Treatment Started: 01/16/24 Admitting Diagnosis: Dysphagia Primary Speech & Language Diagnosis: R13.10 Dysphagia Reason for Today's Visit: [id number] Modified Barium Swallow Study Comments: Pre-evaluation Dietary Consistencies: Regular Pre-evaluation Liquid Consistency: Thin Medical History: Comments: Medical History Polyarthralgia Raynauds phenomenon DDD (degenerative disc disease), cervical Mediastinal mass Asthma Chronic pain syndrome Costochondritis Thrombocytosis TMJ (temporomandibular joint syndrome) Numbness and tingling of left leg Tremors of nervous system Lyme disease Hypersomnia Snoring Hyperlipidemia HTN (hypertension) GERD (gastroesophageal reflux disease) Generalized headaches Back pain Arthriti Surgical History Mediastinal mass (11/08/23) History of mandibular surgery S/P cervical spinal fusion Hx of cervical spine surgery Hx of endoscopy Hx of colonoscopy History of salpingo-oophorectomy History of laparoscopy Hx of arthroscopy Hx of tubal ligation Hx of hysterectomy, total Hx of shoulder surgery Hx of knee surgery [facility] Fall Risk Assessment Score: Oral Motor Exam Facial Symmetry: Normal for Patient Symmetrical Mouth Occlusion: Normal Oral-Facial Teeth Characteristics: Intact/Normal Oral Expression Ability: No Impairment Is patient able to manage secretions?: Yes Is patient able to produce volitional cough?: Yes Food and Liquid Trials: Oral Impairment: Lip Closure: 0=No labial escape Oral Impairment: Tongue Control During Bolus Hold: 0=Cohesive bolus between tongue to palatal seal Oral Impairment: Bolus Preparation/Mastication: 1=Slow prolonged chewing/mashing with complete re-collection Oral Impairment: Bolus Transport/Lingual Motion: 0=Brisk tongue motion Oral Impairment: Oral Residue: 0=Complete oral clearance Oral Impairment:Initiation of Pharyngeal Swallow: 1=Bolus head in valleculae Pharyngeal Impairment: Soft Palate Elevation: 0=No bolus between soft palate (SP)/pharyngeal wall (PW) Pharyngeal Impairment: Laryngeal Elevation: 0=Complete superior movement of thyroid cartilage (see description) Pharyngeal Impairment: Anterior Hyoid Excursion: 0=Complete anterior movement Pharyngeal Impairment: Epiglottic Movement: 0=Complete inversion Pharyngeal Impairment: Laryngeal Vestibular Closure:: 1=Incomplete: narrow column air/contrast in laryngeal vestibule Pharyngeal Impairment: Pharyngeal Stripping Wave: 0=Present: complete Pharyngeal Impairment: Pharyngeal Contraction: Did not test Pharyngeal Impairment: Pharyngoesophageal Segment Openin=Partial distention/partial duration: partial obstruction of flow Pharyngeal Impairment: Tongue Base (TB) Retraction: 1=Trace column of contrast/air between TB and posterior PW Pharyngeal Impairment: Pharyngeal Residue: 1=Trace residue within or on pharyngeal structures Pharyngeal Impairment: Esophageal Clearance Upright Position: Impressions and Recommendations Clinical Observations: Per her most recent Pulminology visit note: Lety's persistent symptoms are likely related to poor asthma control and continues to smoke. Smoking cessation reviewed. She also reported dysphagia and dry cough with eating. Will send for MBSS for dysphagia to rule out microaspiration contributing to cough. Advised to continue current medication regimen at this time and will follow up after MBSS to review results. All questions were answered and patient is in agreement of plan. MBSImP Results: Lip closure for intraoral bolus containment resulted in no labial escape. Tongue control during bolus hold maintained a cohesive bolus held between tongue to palate seal. Bolus preparation and mastication resulted in slow, prolonged chewing/mashing but with complete re-collection. Bolus transport/lingual motion was with brisk tongue motion. Oral residue was not observed. There was complete oral clearance. Initiation of the pharyngeal swallow occurred when the bolus head was in the valleculae. Soft palate elevation resulted in no bolus between the soft palate and the pharyngeal wall. Laryngeal elevation demonstrated complete superior movement of the thyroid cartilage with complete approximation of the arytenoids to the epiglottic petiole. Anterior hyoid excursion demonstrated complete anterior movement. Epiglottic movement resulted in complete inversion. Laryngeal vestibular closure was incomplete, with a narrow column of air/contrast noted within the laryngeal vestibule at the height of the swallow. Pharyngeal stripping wave was present and complete. Pharyngeal contraction could not be determined due to logistical reasons not related to physiologic impairment. Pharyngoesophageal segment opening demonstrated partial distension/partial duration, with partial obstruction of bolus flow. Tongue base retraction allowed a trace column of contrast or air between the retracted tongue base and the posterior pharyngeal wall. Pharyngeal residue was a trace within or on pharyngeal structures. Esophageal clearance in the upright position could not be assessed due to logistical reasons not related to physiologic Oral Impairment Score: 2 Pharyngeal Impairment Score: 2 (absence of score, component 13) Esophageal Impairment Score: --- (absence of score, component 17) Laryngeal Penetration and Aspiration: Neither penetration nor aspiration was observed in today's study with Cookie, Pudding-thick, Thin. impairment. SUMMARY: No aspiration or penetration was observed during today's study. An esophageal screening was performed with a 13mm barium pill. The pill was held at the lower esophageal port requiring cues to take another sip of water. After this, the pilled passed into the stomach. No changes to her diet are recommended. Pt is encouraged to follow-up with her referring providers. Liquid Intake Recommendation: Thin Liquid Intake Strategies: Unrestricted Dietary Recommendations: Regular Medication Administration: Whole with Liquid Please contact the pharmacy regarding appropriate crushable or liquid drug formulations that are available whenever modified delivery is recommended. Compensatory Strategies Recommended: Sitting Upright (90 deg) Alternate Liquids/Solids Supervision during eating and or drinking: None Needed Recommended Treatments: Compens. Strategy Educat. Recommendation for Speech Therapy: NA:Typical Evaluation Text Comment: Recommend continue Regular Solids and Thin Liquids. No IN STORE BANKER intervention required. Follow-up re: GI symptoms. Timeline to reassess: PRN Pain Coordinator Clinician/Clinical Fellow: No Supervisory Statement: N/A Speech Language Pathologist: Gabriele Bell M.A., [facility]-IN STORE BANKER
== END 2024-01-16 10:09 | disposition home or self-care (01) ==
LOC: HO.XRAY 10:08
PROVIDERS: PCP Family Medicine; Visit Provider Nurse Practitioner Family
DX: R13.10 Dysphagia, unspecified (principal); R05.1 Acute cough
CPT/HCPCS: 74230; 92611

== ENCOUNTER → 2024-01-16 10:30 | Outpatient (BNV) | payer OTHER, SELFPAY | PROVIDERS: PCP Family Medicine; Visit Provider Physician Assistant Surgical | DX: R13.10 Dysphagia, unspecified (principal) | CPT/HCPCS: 74230 ==

== ENCOUNTER 2024-01-25 09:24 | Outpatient (REF) | payer OTHER, SELFPAY ==
[2024-01-25 10:15] LABS: MANUAL DIFF FLAG NO
[2024-01-25 10:35] LABS: Basophils Absolute Auto 0.1 X10*3/uL (0.0-0.2); Eosinophils Absolute Auto 0.2 X10*3/uL (0.0-0.4); Eosinophils Percent Auto 1.9 % (0-4); Hematocrit 40.4 % (37.0-47.0); Hemoglobin 13.8 g/dl (12.0-16.0); Imm Gran Abs Auto 0.04 X10*3/uL (0.00-0.03); Imm Gran Pct Auto 0.5 % (0.0-0.4); Lymphocytes Percent Auto 25.7 % (20-40); Mean Corpuscular HGB Conc 34.2 g/dl (31.0-35.0); Mean Corpuscular Hemoglobin 30.7 pg (27.0-33.0); Mean Platelet Volume 8.6 fL (9.4-12.3); Monocytes Absolute Auto 0.5 X10*3/uL (0.1-1.2); Monocytes Percent Auto 6.9 % (2-11); Platelet Count 487 X10*3/uL (160-400); Red Blood Count 4.49 X10*6/uL (4.20-5.50); Red Cell Distribution Width 13.5 % (11.0-16.0); White Blood Count 7.8 X10*3/uL (4.8-10.8)
[2024-01-25 10:51] LABS: Alanine Aminotransferase 23 U/L (0-31); Albumin Level 4.1 g/dL (3.5-5.0); Alkaline Phosphatase 96 U/L (39-117); Anion Gap 13 (12-20); Aspartate Amino Transferase 18 U/L (5-31); Bilirubin Total 0.3 mg/dL (0.0-1.0); Blood Urea Nitrogen 16 mg/dL (9-16); Calcium 10.1 mg/dL (8.4-10.2); Carbon Dioxide 25 mmol/L (22-29); Chloride 101 mmol/L (96-108); Cholesterol 296 mg/dL (<200); Estimated Glomerular Filt Rate > 60; Glucose Fasting 94 mg/dL (60-99); HDL Cholesterol 89 mg/dL (>40); LDL Cholesterol Calculated 187 mg/dL (<100); Potassium 4.4 mmol/L (3.3-5.1); Sodium 135 mmol/L (135-145); Total Protein 7.4 g/dL (6.5-8.0); Triglycerides 101 mg/dL (<150)
[2024-01-25 11:09] LABS: TSH reflex Free T4 0.92 uIU/mL (0.32-4.0)
== END 2024-01-25 09:25 | disposition home or self-care (01) ==
LOC: HO.HMGCLDS 09:24
PROVIDERS: PCP Family Medicine; Visit Provider Family Medicine
DX: Z00.00 Encounter for general adult medical examination without abnormal findings (principal)
CPT/HCPCS: 36415; 80053; 80061; 84443; 85025

== ENCOUNTER 2024-01-28 12:13 | Outpatient (REF) | payer OTHER, SELFPAY ==
[2024-01-29 12:43] LABS: Appearance Urine Clear; Color Urine Yellow; Glucose Urine UA Negative (Negative); Leukocyte Esterase Urine Negative (Negative); Nitrite Urine Negative (Negative); PH 6.5 (5.0-9.0); Urine Blood Negative (Negative); Urine Ketones Negative (Negative); Urine Protein Negative (Neg-Trace)
[2024-01-29 14:02] LABS: Creatinine Urine 22.85 mg/dL; Microalbumin Urine < 5.0 mg/L
== END 2024-01-28 12:14 | disposition home or self-care (01) ==
LOC: HO.LNP 12:13
PROVIDERS: Visit Provider Family Medicine
DX: Z00.00 Encounter for general adult medical examination without abnormal findings (principal); I10 Essential (primary) hypertension
CPT/HCPCS: 81003; 82043; 82570

== ENCOUNTER 2024-01-29 09:39 | Outpatient (AMB) | payer OTHER, SELFPAY ==
[2024-01-29 09:44] VITALS: BP 136/78; PULSE 69; O2SAT 98; BMI 37.5
--- NOTE | 2024-01-29 09:44 | A.OFFVIS_ITS ---
Vital Signs 01/29/24 09:44 Height 5 ft Weight 192 lb BMI 37.5 BP 136/78 Blood Pressure Location Lt brachial Position Sitting Pulse 69 Pulse Source Pulse Oximeter Pulse Oximetry (%) 98 Oxygen Delivery Method Room Air Intake Visit Reasons: dyspnea Allergies Seasonal Allergies Allergy (Severe, Verified 01/29/24 09:50) Itchy Eyes lisinopril Adverse Reaction (Severe, Verified 01/29/24 09:50) Cough pregabalin [From Lyrica] Adverse Reaction (Severe, Verified 01/29/24 09:50) Shortness of Breath celecoxib [From Celebrex] Adverse Reaction (Intermediate, Verified 01/29/24 09:50) Hypertension varenicline [From Chantix] Adverse Reaction (Intermediate, Verified 01/29/24 09:50) Depression HPI HPI dyspnea: Details: Lety is a pleasant 58 year old female, less than 10 pack year history, currently smokes 1/4 ppd, with underlying history of asthma, diagnosed as an adult and GERD, controlled on omeprazole. She underwent thorascopic excision of anterior mediastinal mass on 11/10/[address] Alex which was negative for carcinoma. She continues to report suboptimal control on Advair with persistent dry cough and dyspnea on exertion. She denies chest tightness and wheezing. At the last visit she reported dysphagia and persistent coughing with swallowing, sent for MBSS. Today she presents to review RAST and MBSS results. Of note, her PCP did start her on Singulair with mild improvement in symptoms. [facility] Medical History Polyarthralgia Raynauds phenomenon DDD (degenerative disc disease), cervical Mediastinal mass Asthma Chronic pain syndrome Costochondritis Thrombocytosis TMJ (temporomandibular joint syndrome) Numbness and tingling of left leg Tremors of nervous system Lyme disease Hypersomnia Snoring Hyperlipidemia HTN (hypertension) GERD (gastroesophageal reflux disease) Generalized headaches Back pain Arthritis Surgical History Mediastinal mass (11/08/23) History of mandibular surgery S/P cervical spinal fusion Hx of cervical spine surgery Hx of endoscopy Hx of colonoscopy History of salpingo-oophorectomy History of laparoscopy Hx of arthroscopy Hx of tubal ligation Hx of hysterectomy, total Hx of shoulder surgery Hx of knee surgery Family History Father Heart disease Cancer Prostate cancer Mother Dementia Congestive heart failure Social History Housing: House Are you a primary child care education coordinator to a significant other at home: No Do you presently have visiting nurse or other home services: No Alcohol intake: current Patient Tobacco Use Status: Current everyday Tobacco user Tobacco use type: Cigarette Cigarettes Per Day: 2 Years Smoked: 26 e-Cigarette/Vaping Use: Never Used Second Hand Smoke Exposure: No service: No Current occupational status: disabled Current occupational exposures/hazards: No Cognitive needs: No Hearing needs: No Vision needs: No Review of Systems Const Denies chills, Denies excessive sweating, Denies fever(s), Denies headache(s) and Denies night sweats Eyes Denies dry eyes, Denies irritation and Denies itchy eyes ENT Reports Normal hearing present, Denies headache(s), Denies nasal congestion, Denies nasal discharge, Denies post nasal drip and Denies sore throat Card Denies chest pain, Denies chest pain at rest, Denies chest pain with activity, Denies claudication, Denies leg edema, Denies orthopnea and Denies paroxysmal nocturnal dyspnea Resp Denies chest congestion, Denies excessive phlegm production, Denies pain on inspiration, Denies pain with cough, Denies stridor and Denies wheezing Musc Denies myalgias Neuro Reports Normal hearing present and Denies headache(s) Endo Denies excessive sweating Yaw/Lymph Denies lymphadenopathy Aller/Immun Denies itchy eyes, Denies seasonal rhinorrhea and Denies wheezing Physical Exam Vital Signs: Last Vital Signs Pulse 69 01/29/24 09:44 BP 136/78 01/29/24 09:44 Pulse Ox 98 01/29/24 09:44 Oxygen Delivery Method Room Air 01/29/24 09:44 BMI result Body Mass Index 37.5 Const General: cooperative, healthy appearing, comfortable, no acute distress, well developed and alert Nutritional Appearance: obese Orientation/consciousness: patient oriented x3 Limitations: no limitations HEENT Head: Yes normal to inspection, Yes normocephalic and Yes atraumatic Ears: hearing grossly normal bilaterally and external ears normal Eyes General: appearance normal, both eyes and all related structures Eyelids: Yes eyelids normal Sclerae: sclerae normal EOM: EOMs intact bilaterally Neck Neck: Yes normal visual inspection and Yes no lymphadenopathy Lymphatic: no lymphadenopathy noted Chest Chest palpation & inspection: normal inspection of the chest Resp Effort & Inspection: normal respiratory effort, able to speak in complete sentences, no audible wheezes, no cough, no stridor, not tachypneic, no tripod positioning and no use of accessory muscles Auscultation: clear to auscultation bilaterally Cardio Jugular venous distension: no JVD Rate: regular rate Rhythm: regular rhythm Skin Other: warm, dry General skin exam: no rashes or lesions noted Neuro General: patient oriented x3 Cranial nerves: Yes Normal hearing present Cognition (Neuro): normal cognition Gait exam (Neuro): Normal gait present Extrem General: Yes normal to inspection, Yes capillary refill normal, Yes no clubbing, cyanosis or edema and Yes no pedal edema Psych Appearance: grossly normal and well kempt Speech and movement: Normal speech and movement present and Clear speech present Affect: normal affect Attitude: cooperative Thought process: Normal thought process present Thought content: Normal thought content present Insight: Good insight present (Psych) Judgement: Good judgement present (Psych) Assessment & Plan Assessment & Plan (1) Asthma: Code(s): J45.909 - Unspecified asthma, uncomplicated Category: Medical (2) GERD (gastroesophageal reflux disease): Code(s): K21.9 - Gastro-esophageal reflux disease without esophagitis Category: Medical (3) Cough: Code(s): R05.9 - Cough, unspecified Category: Medical Qualifiers: Cough type: acute Qualified Code(s): R05.1 - Acute cough (4) Personal history of tobacco use: Code(s): Z87.891 - Personal history of nicotine dependence Category: Social Hx (5) Obesity (BMI 30-39.9): Code(s): E66.9 - Obesity, unspecified Category: Medical (6) Mediastinal mass: Onset Date: 11/08/23 Code(s): J98.59 - Other diseases of mediastinum, not elsewhere classified Category: Surgical (7) Dysphagia: Code(s): R13.10 - Dysphagia, unspecified Category: Medical Plan Reviewed MBSS which did not reveal any aspiration or penetration. Recommendations per patient were made for further evaluation through GI, will enter referral. Reviewed RAST which revealed allergies to trees, dust mites, cat, dog and mouse. Discussed adding an antihistamine to regimen and reviewed ways to minimize allergen exposures. Advised to continue sinuglair. She continues to report suboptimal control on Advair, will trial Breo. All questions were answered and patient is in agreement of plan. Will follow up in 8-10 weeks or sooner if needed. Orders: Referrals Gastroenterology Referral R13.10 - Dysphagia, unspecified Medications: New fluticasone furoate-vilanterol 200-25 mcg/dose (Breo Ellipta) 1 inh inhalation DAILY 60 ea 6RF Refilled albuterol sulfate 90 mcg/actuation 2 puffs inhalation Q6H 30 days PRN 8.5 grams 4RF Shortness Of Breath Discontinued fluticasone propion-salmeterol 500-50 mcg/dose (Wixela Inhub) Discontinued Reason: Patient Completed Course 1 inh inhalation Q12H 90 days 3 ea 0RF J45.909 - Unspecified asthma, uncomplicated Coding Level of Care Code Est Pt Level 4 (82593) Diagnoses Asthma J45.909 GERD (gastroesophageal reflux disease) K21.9 Acute cough R05.1 Cough type: acute Personal history of tobacco use Z87.891 Obesity (BMI 30-39.9) E66.9 Mediastinal mass J98.59 Dysphagia R13.10
== END 2024-01-29 10:42 | disposition home or self-care (01) ==
PROVIDERS: PCP Family Medicine; Visit Provider Nurse Practitioner Family
DX: J45.909 Unspecified asthma, uncomplicated (principal); K21.9 Gastro-esophageal reflux disease without esophagitis; R05.1 Acute cough; Z87.891 Personal history of nicotine dependence; E66.9 Obesity, unspecified; J98.59 Other diseases of mediastinum, not elsewhere classified; R13.10 Dysphagia, unspecified
CPT/HCPCS: 99214

== ENCOUNTER → 2024-01-29 09:39 | Outpatient (BNVA) | payer OTHER, SELFPAY | PROVIDERS: PCP Family Medicine; Visit Provider Nurse Practitioner Family ==

== ENCOUNTER 2024-01-30 11:39 | Outpatient (AMB) | payer OTHER, SELFPAY ==
[2024-01-30 12:00] VITALS: BP 118/70; PULSE 77; O2SAT 99; BMI 37.4
--- NOTE | 2024-01-30 12:00 | A.OFFPC_ITS ---
Vital Signs 01/30/24 12:00 Height 5 ft Weight 191 lb 8 oz BMI 37.4 BP 118/70 Blood Pressure Location Lt brachial Position Sitting Pulse 77 Pulse Source Pulse Oximeter Pulse Oximetry (%) 99 Oxygen Delivery Method Room Air Intake Visit Reasons: CPE Follow up labs Intake Note: Patient is here for her physical and follow up on labs. She needs referral for pain management, and is requesting MRI for her back pain, and the feeling zaps in her calves, and has spot on her arm that may be tick bite. Allergies Seasonal Allergies Allergy (Severe, Verified 01/30/24 12:05) Itchy Eyes lisinopril Adverse Reaction (Severe, Verified 01/30/24 12:05) Cough pregabalin [From Lyrica] Adverse Reaction (Severe, Verified 01/30/24 12:05) Shortness of Breath celecoxib [From Celebrex] Adverse Reaction (Intermediate, Verified 01/30/24 12:05) Hypertension varenicline [From Chantix] Adverse Reaction (Intermediate, Verified 01/30/24 12:05) Depression Medication List - Last Reconciled 01/30/24 by Amrik Mendoza MD albuterol sulfate 90 mcg/actuation 2 puffs inhalation Q6H PRN 30 days benzonatate 100 mg PO BID PRN bupropion HCl XL 300 mg PO QAM 90 days buspirone 15 mg (1.5 x 10 mg) PO BID [cloth tape As directed] cyclobenzaprine 10 mg PO TID cyclosporine 0.05% (Restasis) 1 drp ophthalmic (eye) Q12H diclofenac sodium 1% 4 grams topical QID PRN 30 days diltiazem HCl ER (Tiadylt ER) 180 mg PO QAM fluoxetine 40 mg (2 x 20 mg) PO QAM 30 days fluticasone furoate-vilanterol 200-25 mcg/dose (Breo Ellipta) 1 inh inhalation DAILY hydrocodone-acetaminophen 5-325 mg 1 tab PO Q4-6H PRN lorazepam (Ativan) 1 mg PO DAILY PRN magnesium gluconate (Mag-G) 27 mg PO BID meloxicam 15 mg PO QAM montelukast (Singulair) 10 mg PO QAM 90 days omega [id number]-fish oil 300-1,000 mg (Fish Oil) 1 cap PO QAM omeprazole 20 mg PO QAM 90 days propranolol ER 60 mg PO BEDTIME telmisartan 80 mg PO QAM 90 days [xeroform As directed] Tobacco use date assessed: 01/30/24 Dental Screening Dental Screen Date: 01/30/24 Did you have a dental visit in the last 12 months?: Yes Did you have a dental problem in the last 6 months where you did not have access to dental care?: No Was dental information given to patient?: Patient has dentist HPI CPE Follow up labs HPI Details 58 y/o female presents for a CPE with f/ u labs and health maintenance. Labs were drawn 01/25/24. Reviewed labs with pt. Triglycerides 101. TC 296. LDL 187. HDL 89. Blood pressure today 118/70. She is on telmisartan 80mg, propranolol 60mg. HPI Comments History of Present Illness Details Documentation assistance for Amrik Mendoza MD, was provided by Neri French, Economic Research Analyst on 01/30/2024 at 1:15 PM EST. I, Dr. Mendoza, have read, observed, and verified documentation. [facility] Medical History Polyarthralgia Raynauds phenomenon DDD (degenerative disc disease), cervical Mediastinal mass Asthma Chronic pain syndrome Costochondritis Thrombocytosis TMJ (temporomandibular joint syndrome) Numbness and tingling of left leg Tremors of nervous system Lyme disease Hypersomnia Snoring Hyperlipidemia HTN (hypertension) GERD (gastroesophageal reflux disease) Generalized headaches Back pain Arthritis Surgical History Mediastinal mass (11/08/23) History of mandibular surgery S/P cervical spinal fusion Hx of cervical spine surgery Hx of endoscopy Hx of colonoscopy History of salpingo-oophorectomy History of laparoscopy Hx of arthroscopy Hx of tubal ligation Hx of hysterectomy, total Hx of shoulder surgery Hx of knee surgery Family History Father Heart disease Cancer Prostate cancer Mother Dementia Congestive heart failure Social History Housing: House Are you a primary manager care to a significant other at home: No Do you presently have visiting nurse or other home services: No Alcohol intake: current Patient Tobacco Use Status: Current everyday Tobacco user Tobacco use type: Cigarette Cigarettes Per Day: 2 Years Smoked: 26 e-Cigarette/Vaping Use: Never Used Second Hand Smoke Exposure: No service: No Current occupational status: disabled Current occupational exposures/hazards: No Cognitive needs: No Hearing needs: No Vision needs: No Questionnaire PHQ-9 Over the last 2 weeks, how often have you been bothered by any of the following problems? 1. Little interest or pleasure in doing things: several days 2. Feeling down, depressed, or hopeless: not at all 3. Trouble falling or staying asleep, or sleeping too much: not at all 4. Feeling tired or having little energy: several days 5. Poor appetite or overeating: nearly every day 6. Feeling bad about yourself - or that you are a failure or have let yourself or your family down: nearly every day 7. Trouble concentrating on things, such as reading the newspaper or watching television: nearly every day 8. Moving or speaking so slowly that other people could have noticed. Or the opposite - being so fidgety or restless that you have been moving around a lot more than usual: not at all 9. Thoughts that you would be better off or of hurting yourself in some way: not at all Total score: 11 Depression Screening Interpretation: Positive Depression Screening Done: Yes 27103 - PHQ-9 Billing: Yes Source: Developed by Drs. Celso Blake, Sarah Abreu, Shravan Dominique and colleagues, with an educational allan from [employer]. Thrive Questionnaire Date Thrive assessed: 01/30/24 I am a: Patient What is your living situation today?: I have a steady place to live Within the past 12 months, did the food you bought not last and you didn't have the money to get more?: Never true Within the past 12 months, did you worry whether your food would run out before you got money to buy more?: Never true Do you have trouble paying for medicines?: No Do you have trouble getting transportation to medical appointments?: No Do you have trouble paying your heating and electricity bill?: No Do you have trouble taking care of your child, family member or friend?: No Do you have trouble with day-to-day activities such as bathing, preparing meals, shopping, managing finances, etc.?: No Are you currently unemployed and looking for a job?: No Are you interested in more education?: No THRIVE Score: 0 RAFAEL-7 AMB Questionnaire RAFAEL-7 Date RAFAEL - 7 assessed: 10/04/22 Source: Developed by Drs. Celso Blake, Sarah Abreu, Shravan Dominique and colleagues, with an educational allan from [employer]. Review of Systems Const Denies chills, Denies fatigue, Denies fever(s), Denies headache(s) and Denies weakness Eyes Denies change in vision ENT Denies dizziness, Denies headache(s), Denies hearing loss, Denies nasal congestion, Denies sinus pain, Denies sinus pressure and Denies sore throat Card Denies chest pain, Denies lightheadedness, Denies dyspnea and Denies other (palpitations) Resp Denies cough, Denies dyspnea and Denies wheezing GI Denies abdominal pain, Denies melena, Denies hematochezia, Denies change in bowel habits, Denies dyspepsia and Denies nausea Denies hematuria and Denies dysuria Musc Denies abnormal gait, Denies myalgias, Denies arthralgias, Denies numbness and Denies tingling Skin/Breast Denies rash, Denies unusual bruising and Denies wounds Neuro Denies abnormal gait, Denies dizziness, Denies headache(s), Denies memory loss, Denies numbness, Denies Sensory deficit (Neuro), Denies tingling and Denies weakness Psych Denies anxiety, Denies depression and Denies memory loss Endo Denies cold intolerance, Denies fatigue, Denies heat intolerance, Denies polydipsia and Denies polyuria Yaw/Lymph Denies easy bleeding and Denies easy bruising Aller/Immun Denies wheezing Physical exam (Primary Care) Vital Signs: Last Vital Signs Pulse 77 01/30/24 12:00 BP 118/70 01/30/24 12:00 Pulse Ox 99 01/30/24 12:00 Oxygen Delivery Method Room Air 01/30/24 12:00 BMI result Body Mass Index 37.4 Tobacco/Smoking Status: Tobacco use Status Tobacco use date assessed 01/30/24 01/30/24 12:15 Patient Tobacco Use Status Current everyday Tobacco 01/30/24 12:15 Tobacco use type Cigarette 01/30/24 12:15 e-Cigarette/Vaping Use Never Used 01/30/24 12:15 PHQ-9: PHQ-9 Score PHQ-9: Total score 11 01/30/24 13:00 Depression Screening Interpretation: Positive Thrive Assessment: Date of Thrive Assessment Date Thrive assessed 01/30/24 01/30/24 12:15 Const General: no acute distress, well developed, alert and awake Nutritional Appearance: well nourished Orientation/consciousness: patient oriented x3 HENMT Head: Yes normocephalic and Yes atraumatic Ears: hearing grossly normal bilaterally and TM's normal bilaterally General nose exam: Normal external nose present and Normal nares present Mouth: Normal oral and palatal mucosa present and moist mucous membranes Teeth and gingiva: dentition normal Throat: Yes posterior oropharynx normal Eyes General: appearance normal, both eyes and all related structures Pupils: Equal, round and reactive pupils present and Pupil accommodation reflex normal EOM: EOMs intact bilaterally Neck Neck: Yes normal visual inspection, Yes no lymphadenopathy and Yes trachea midline Thyroid: Thyroid normal Carotids: no bruits Lymphatic: no lymphadenopathy noted Chest Chest palpation & inspection: normal inspection of the chest Resp Effort & Inspection: normal respiratory effort Auscultation: clear to auscultation bilaterally Cardio Rate: regular rate Rhythm: regular rhythm Heart sounds: S1 normal heart sound present, S2 normal heart sound present, no gallops, no murmurs and no rubs Bruits: no abdominal aortic bruits and no carotid bruits GI Palpation (GI): No Abdominal aortic bruit present, Soft to palpation, nontender, No hepatosplenomegaly present and No Rebound tenderness present Auscultation: normal bowel sounds General: Yes no CVA tenderness Back/Spine/Pelvis Back: no CVA tenderness Cervical Spine: cervical ROM normal and No Cervical spine tenderness Thoracic/Lumbar Spine: thoraco-lumbar ROM normal, No pain with thoraco-lumbar ROM, No thoracic spinal tenderness and No lumbar spinal tenderness Skin Lesions: no lesions Rashes: no rashes Trauma: no lacerations or abrasions Wounds: no wounds Nails: normal Neuro General: patient oriented x3 Cranial nerves: Yes Equal, round and reactive pupils present Cognition (Neuro): normal cognition Gait exam (Neuro): Normal gait present Motor exam (neuro): 5/5 motor strength present throughout Sensory Exam: No Sensory deficit (Neuro) Deep tendon reflexes (DTR's): Right patellar reflex intensity grade: 2+ and Left patellar reflex intensity grade: 2+ Extrem General: Yes normal to inspection and No edema Psych Appearance: grossly normal Affect: normal affect Attitude: cooperative Thought process: Normal thought process present Assessment and Plan Assessment & Plan (1) Adult general medical exam: Code(s): Z00.00 - Encounter for general adult medical examination without abnormal findings Plan: 58-year-old?female?presents?for?complete?physical?exam Encouraged?healthy?diet?with?active?lifestyle?and?plenty?of?exercise (2) Hyperlipidemia: Code(s): E78.5 - Hyperlipidemia, unspecified Plan: Lipids?are?high.??She?had?been?on?simvastatin? but?stop?this?thinking?that?her?chronic?pain?might?improve?but?it?did?not. Will?start?atorvastatin?40?mg?daily (3) HTN (hypertension): Code(s): I10 - Essential (primary) hypertension Plan: Blood?pressure?is?controlled.??Goal?is?less?than?140/90 Continue?current?medication?regimen (4) Low back pain: Code(s): M54.50 - Low back pain, unspecified Plan: Chronic?low?back?pain Check?x-ray Referred?to?physical?therapy Also?encouraged?weight?loss (5) Obesity (BMI 30-39.9): Code(s): E66.9 - Obesity, unspecified Plan: BMI?greater?than?30 Patient?would?like?to?try?Wegovy?and?I?will?send?this Also?discussed?healthy?diet?and?decreased?portion?sizes.??Patient?currently?has? difficulty?exercising?due?to?chronic?pain - encouraged?exercise?as?tolerated (6) Chronic pain syndrome: Code(s): G89.4 - Chronic pain syndrome Plan: Referred?to?pain?management She?has?chronic?back?pain?and?I?am?checking plain?films?of?lumbar?spine May?need?further?imaging (7) Breast cancer screening by mammogram: Code(s): Z12.31 - Encounter for screening mammogram for malignant neoplasm of breast Plan: Due?for?mammogram Ordered (8) Smoking: Code(s): F17.200 - Nicotine dependence, unspecified, uncomplicated Plan: Patient?is?still?smoking?a?couple?of?cigarettes?per?day Encouraged?cessation Orders: Orders MM tomosynthesis screening BI Today Z12.31 - Encounter for screening mammogram for malignant neoplasm of breast XR lumbar spine 2-3V Today M54.50 - Low back pain, unspecified Referrals Pain Management Referral M54.50 - Low back pain, unspecified Medications: New semaglutide (weight loss) (Wemanivnancy) administer weeks 1 through 4 of therapy 0.25 mg (0.5 mL) subcut QWEEK 28 days 2 mL 3RF M54.50 - Low back pain, unspecified, Z68.37 - Body mass index [BMI] 37.0-37.9, adult atorvastatin 40 mg PO BEDTIME 90 days 90 tabs 3RF Coding Level of Care Code Est Pt Level 3 (46433) Est Pt Prev Care 40-64y(36196) Diagnoses Adult general medical exam Z00.00 Hyperlipidemia E78.5 HTN (hypertension) I10 Low back pain M54.50 Obesity (BMI 30-39.9) E66.9 Chronic pain syndrome G89.4 Breast cancer screening by mammogram Z12.31 Smoking F17.200
== END 2024-01-30 13:33 | disposition home or self-care (01) ==
PROVIDERS: PCP Family Medicine; Visit Provider Family Medicine
DX: Z00.00 Encounter for general adult medical examination without abnormal findings (principal); E78.5 Hyperlipidemia, unspecified; E66.9 Obesity, unspecified; Z68.37 Body mass index [BMI] 37.0-37.9, adult; M54.50 Low back pain, unspecified; I10 Essential (primary) hypertension; G89.4 Chronic pain syndrome; Z12.31 Encounter for screening mammogram for malignant neoplasm of breast; F17.210 Nicotine dependence, cigarettes, uncomplicated
CPT/HCPCS: 99213; 99396

== ENCOUNTER 2024-02-01 09:35 | Outpatient (REF) | payer OTHER, SELFPAY ==
--- NOTE | ~2024-02-01 | XR_ITS ---
EXAMINATION: XR LUMBOSACRAL SPINE CLINICAL INFORMATION: Low back pain unspecified. COMPARISON: Chest radiograph of 11/10/2023. TECHNIQUE: Three views of the lumbosacral spine. FINDINGS: Mild dextroscoliosis of the lumbar spine. Surgical clips in the pelvis. Facet arthritis in the lower lumbar spine. Moderate multilevel lumbar spondylosis with moderate loss of disc space height at L2-L3, L3-L4, L4-L5 and marked loss of disc space at L5-S1. XR/XR lumbar spine 2-3V IMPRESSION: Moderate multilevel lumbar spondylosis.
== END 2024-02-01 09:36 | disposition home or self-care (01) ==
LOC: HO.HMGCX 09:35
PROVIDERS: PCP Family Medicine; Visit Provider Family Medicine
DX: M54.50 Low back pain, unspecified (principal)
CPT/HCPCS: 72100

== ENCOUNTER 2024-02-06 11:13 | Outpatient (AMB) | payer OTHER, SELFPAY ==
[2024-02-06 11:29] VITALS: BP 160/102; PULSE 80; RESP 16; O2SAT 99; BMI 37.4
--- NOTE | 2024-02-06 11:29 | MHC.OFFVIS ---
Vital Signs 02/06/24 11:29 02/06/24 11:58 Height 5 ft Weight 191 lb 8 oz BMI 37.4 BP 160/102 H 180/99 H Blood Pressure Location Lt brachial Lt brachial Position Sitting Sitting Respiration 16 Pulse 80 Pulse Source Pulse Oximeter Pulse Oximetry (%) 99 Oxygen Delivery Method Room Air Intake Visit Reasons: Low back pain, unspecified Allergies Seasonal Allergies Allergy (Severe, Verified 02/06/24 11:28) Itchy Eyes lisinopril Adverse Reaction (Severe, Verified 02/06/24 11:28) Cough pregabalin [From Lyrica] Adverse Reaction (Severe, Verified 02/06/24 11:28) Shortness of Breath celecoxib [From Celebrex] Adverse Reaction (Intermediate, Verified 02/06/24 11:28) Hypertension varenicline [From Chantix] Adverse Reaction (Intermediate, Verified 02/06/24 11:28) Depression HPI Comments Details: Lety is a very pleasant 58 year old female who presents to the office today for evaluation management of her chronic lower back and midline thoracic back pain Patient reports that she has been suffering with these pains for several years, the lower back pain has worsened over the last 3 months Today she is requesting to focus on the lower back pain Pain today is rated as 7/10, constant Pain bilateral PSIS, with radiation to posterior thighs and bilateral groin Worse with standing, sitting and climbing stairs Pain does not radiate past level of the knee Denies red flag symptoms including new loss of bowel, bladder or saddle anesthesia PT in the past has not been helpful. For the last 2 months she has been doing HEP focus on bilateral SIJ. No improvement with the HEP. Using SIJ belt, feels some mild relief when wearing it but pain remains severe with stairs. Patient has tried prescription NSAIDS, muscle relaxers, topical medications and lidocaine patches for greater than 6 months without improvement. She will be starting Wegovy for weight loss soon. Hoping that this will improve her pain. Currently being tapered off of her Prozac with plan to start Cymbalta. She was advised that this may also improve her pain. In terms of muscle damage condition is described as stabbing, tingling, pulling, tugging, pinching, cramping, tiring, sore, hurting, aching, punishing, spreading, tight, squeezing. Pain is negatively impacting patient's enjoyment of life, normal function, ability to perform activities of daily living, sleep and walking Patient has also looking to be treated for chronic thoracic back pain. She previously underwent sterile injections at T3, T4-T7 and T8 with very short-term relief. She had trigger point injections were which were also not help. No relief with NSAIDs, kloc-awb-pealurr medications, topical medications and muscle relaxers. [facility] Medical History Polyarthralgia Raynauds phenomenon DDD (degenerative disc disease), cervical Mediastinal mass Asthma Chronic pain syndrome Costochondritis Thrombocytosis TMJ (temporomandibular joint syndrome) Numbness and tingling of left leg Tremors of nervous system Lyme disease Hypersomnia Snoring Hyperlipidemia HTN (hypertension) GERD (gastroesophageal reflux disease) Generalized headaches Back pain Arthritis Surgical History Mediastinal mass (11/08/23) History of mandibular surgery S/P cervical spinal fusion Hx of cervical spine surgery Hx of endoscopy Hx of colonoscopy History of salpingo-oophorectomy History of laparoscopy Hx of arthroscopy Hx of tubal ligation Hx of hysterectomy, total Hx of shoulder surgery Hx of knee surgery Family History Father Heart disease Cancer Prostate cancer Mother Dementia Congestive heart failure Social History Housing: House Are you a primary childbirth and infant care teacher to a significant other at home: No Do you presently have visiting nurse or other home services: No Alcohol intake: current Patient Tobacco Use Status: Current everyday Tobacco user Tobacco use type: Cigarette Cigarettes Per Day: 2 Years Smoked: 26 e-Cigarette/Vaping Use: Never Used Second Hand Smoke Exposure: No service: No Current occupational status: disabled Current occupational exposures/hazards: No Cognitive needs: No Hearing needs: No Vision needs: No Review of Systems Const All systems reviewed & are unremarkable except as noted in HPI and below Physical Exam Vital Signs: Last Vital Signs Pulse 80 02/06/24 11:29 Resp 16 02/06/24 11:29 BP 160/102 H 02/06/24 11:29 Pulse Ox 99 02/06/24 11:29 Oxygen Delivery Method Room Air 02/06/24 11:29 BMI result Body Mass Index 37.4 General: awake, alert, oriented. Answers questions appropriately. Fully engaged in examination. Skin: warm, dry, intact HEENT: Normocephalic. Hearing intact. Cardiac: External chest normal in appearance. Respiratory: No cough, audible wheezing or stridor. Abdomen: without gross distension. MS: No obvious swelling or deformities. Significantly tender to palpation bilateral PSIS, right>left SHANI positive bilaterally [place]enslen positive bilaterally Thigh thrust positive bilaterally SI compression positive bilaterally Tenderness to palpation upper thoracic midline vertebrae and paraspinal muscles SLR neg bilaterally Neurological: Oriented to person, place, time and situation. Thought process intact. Psychiatric: Appropriate mood and affect. Good judgment and insight. Results Reviewed Results Reviewed: 09/08/2021 MRI Thoracic Assessment & Plan Assessment & Plan (1) Low back pain: Code(s): M54.50 - Low back pain, unspecified Category: Medical (2) Sacroiliac joint dysfunction of both sides: Code(s): M53.3 - Sacrococcygeal disorders, not elsewhere classified Category: Medical (3) Myofascial pain syndrome of thoracic spine: Code(s): M79.18 - Myalgia, other site Category: Medical (4) Thoracic back pain: Code(s): M54.6 - Pain in thoracic spine Category: Medical Plan Lety is a very pleasant 58-year-old female who presented to the office today for evaluation and management of her chronic lower back pain History, physical exam and provocative testing consistent with bilateral sacroiliac joint dysfunction Patient has exhausted conservative therapy including PT, home exercise program, nonsteroidal anti-inflammatory medications, muscle relaxers and SI belting without improvement of her pain Discussed options for treatment including diagnostic interventional testing, steroid injections, peripheral nerve stimulation with Sprint and neuromodulation. Will schedule for fluoroscopy guided bilateral diagnostic sacroiliac joint injections with local anesthetic. Patient is requesting Ativan prior to the procedure. Reviewed therapeutic options including steroid injections, nerve stimulation with Curonix and sacroiliac joint fusion. Patient also requesting to treat her chronic thoracic myofascial pain. Discussed options for treatment including diagnostic injections followed by Sprint PNS. We will discuss this further at follow up appointment, she would like to focus on SIJ pain first. All questions and concerns have been answered and patient agrees with the plan. Follow up after injections, sooner if needed. Coding Level of Care Code New Pt Level 4 (51183) Diagnoses Low back pain M54.50 Sacroiliac joint dysfunction of both sides M53.3 Myofascial pain syndrome of thoracic spine M79.18 Thoracic back pain M54.6
[2024-02-06 11:58] VITALS: BP 180/99
== END 2024-02-06 11:56 | disposition home or self-care (01) ==
PROVIDERS: PCP Family Medicine; Referring Provider Family Medicine; Visit Provider Registered Nurse Emergency
DX: M54.50 Low back pain, unspecified (principal); M53.3 Sacrococcygeal disorders, not elsewhere classified; M79.18 Myalgia, other site; M54.6 Pain in thoracic spine
CPT/HCPCS: 99204

== ENCOUNTER → 2024-02-06 11:13 | Outpatient (BNVA) | payer OTHER, SELFPAY | PROVIDERS: PCP Family Medicine; Referring Provider Family Medicine; Visit Provider Registered Nurse Emergency ==

== ENCOUNTER 2024-02-13 10:20 | Outpatient (REF) | payer OTHER, SELFPAY ==
[2024-02-14 13:43] LABS: Lyme Abs Screen <0.90 index
== END 2024-02-13 10:21 | disposition home or self-care (01) ==
LOC: HO.HMGCLDS 10:20
PROVIDERS: PCP Family Medicine; Visit Provider Family Medicine
DX: T14.8XXA Other injury of unspecified body region, initial encounter (principal); W57.XXXA Bitten or stung by nonvenomous insect and other nonvenomous arthropods, initial encounter; Y93.9 Activity, unspecified; Y92.9 Unspecified place or not applicable; Y99.9 Unspecified external cause status
CPT/HCPCS: 36415; 86617; 86618

== ENCOUNTER 2024-02-26 06:04 | Outpatient (REF) | payer OTHER, SELFPAY ==
--- NOTE | ~2024-02-26 | FL_ITS ---
EXAMINATION: XR FLUOROSCOPY WITH IMAGES CLINICAL INFORMATION: Sacrococcygeal disorders. COMPARISON: None available. TECHNIQUE: Fluoroscopy Supervised By: Dr. Von Baltazar. Fluoroscopy Time: 0.3 minutes. Cumulative Dose: 6.00 mGy. DAP: 0.104 Gycm2. Images: 2. FINDINGS: Intraoperative fluoroscopy and spot films were performed during a procedure in the OR. A needle is seen just medial to the SI joints bilaterally with contrast present around the needle tips. Please correlate with Dr. Von Baltazar's report for complete details. FL/FL guidance in treatment room IMPRESSION: Intraoperative fluoroscopy and spot films were obtained. Please see Dr. Von Baltazar's report for complete details.
== END 2024-02-26 06:05 | disposition home or self-care (01) ==
LOC: CF 06:04
PROVIDERS: Visit Provider Anesthesiology
DX: M53.3 Sacrococcygeal disorders, not elsewhere classified (principal); M54.50 Low back pain, unspecified; M79.18 Myalgia, other site; M54.6 Pain in thoracic spine
CPT/HCPCS: 27096; J2795; J3301; Q9967

== ENCOUNTER 2024-02-26 07:15 | Outpatient (AMB) | payer OTHER, SELFPAY ==
--- NOTE | 2024-02-26 07:13 | MHC.OFFVIS ---
Vital Signs 02/26/24 07:20 02/26/24 08:20 Height 5 ft Weight 188 lb BMI 36.7 BP 132/68 186/100 H Blood Pressure Location Lt brachial Rt brachial Position Sitting Sitting Respiration 16 Pulse 88 73 Pulse Source Pulse Oximeter Pulse Oximeter Pulse Oximetry (%) 96 98 Oxygen Delivery Method Room Air Room Air Comment Pre-Op Post-Op Intake Visit Reasons: BILATERAL DIAGNOSTIC SIJ INJECTIONS Allergies Seasonal Allergies Allergy (Severe, Verified 02/26/24 07:22) Itchy Eyes lisinopril Adverse Reaction (Severe, Verified 02/26/24 07:22) Cough pregabalin [From Lyrica] Adverse Reaction (Severe, Verified 02/26/24 07:22) Shortness of Breath celecoxib [From Celebrex] Adverse Reaction (Intermediate, Verified 02/26/24 07:22) Hypertension varenicline [From Chantix] Adverse Reaction (Intermediate, Verified 02/26/24 07:22) Depression PFSH Medical History Polyarthralgia Raynauds phenomenon DDD (degenerative disc disease), cervical Mediastinal mass Asthma Chronic pain syndrome Costochondritis Thrombocytosis TMJ (temporomandibular joint syndrome) Numbness and tingling of left leg Tremors of nervous system Lyme disease Hypersomnia Snoring Hyperlipidemia HTN (hypertension) GERD (gastroesophageal reflux disease) Generalized headaches Back pain Arthritis Surgical History Mediastinal mass (11/08/23) History of mandibular surgery S/P cervical spinal fusion Hx of cervical spine surgery Hx of endoscopy Hx of colonoscopy History of salpingo-oophorectomy History of laparoscopy Hx of arthroscopy Hx of tubal ligation Hx of hysterectomy, total Hx of shoulder surgery Hx of knee surgery Family History Father Heart disease Cancer Prostate cancer Mother Dementia Congestive heart failure Social History Housing: House Are you a primary floor care specialist to a significant other at home: No Do you presently have visiting nurse or other home services: No Alcohol intake: current Patient Tobacco Use Status: Current everyday Tobacco user Tobacco use type: Cigarette Cigarettes Per Day: 2 Years Smoked: 26 e-Cigarette/Vaping Use: Never Used Second Hand Smoke Exposure: No service: No Current occupational status: disabled Current occupational exposures/hazards: No Cognitive needs: No Hearing needs: No Vision needs: No Physical Exam Vital Signs: Last Vital Signs Pulse 73 02/26/24 08:20 Resp 16 02/26/24 07:20 BP 186/100 H 02/26/24 08:20 Pulse Ox 98 02/26/24 08:20 Oxygen Delivery Method Room Air 02/26/24 08:20 BMI result Body Mass Index 36.7 Assessment & Plan Assessment & Plan (1) Sacroiliac joint dysfunction of both sides: Code(s): M53.3 - Sacrococcygeal disorders, not elsewhere classified Category: Medical Plan: Bilateral therapeutic sacroiliac joint injection. Informed consent was explained thoroughly to the patient. All questions about benefits and risks for the procedure were answered. Patient came to the operating room and was positioned prone on the operating table with the pillow under the pelvis. Time out was performed delineating name and of the patient, allergies and the nature of the procedure. The lower back and buttocks of the patient were prepped with ChloraPrep prepped and draped with sterile utility towels. C-arm was brought over the operating field and sq picture of patient's pelvis was demonstrated on the screen. For the right joint tilting C-arm contralateral to the site of the joint the most posterior portion of the joints was superimposed with anterior silhouette of the joint. Skin was injected in the projection of the joint slightly medial to the location of the joint with 25 gauge 1/2 inch needle using local lidocaine 2% .After that 22 gauge 3 and 1/2 inch needle was driven to the right joint in tunnel vision fashion. When needle entered the joint capsule injection of the contrast was performed demonstrating intra-articular and minimally periarticular spread of the contrast. After that 4 cc. of ropivacaine 0.5% mixed with Kenalog 40 mg was injected into the joint. Upon completion of the injections the needle was removed and procedure was repeated on the left side in mirroring fashion. The needle was removed. Sterile Band-Aid was applied. Upon completion of the injection patient was taken outside of the operating room to the recovery room where recovered uneventfully. (2) Low back pain: Code(s): M54.50 - Low back pain, unspecified Category: Medical (3) Myofascial pain syndrome of thoracic spine: Code(s): M79.18 - Myalgia, other site Category: Medical (4) Thoracic back pain: Code(s): M54.6 - Pain in thoracic spine Category: Medical Plan Lety is a very pleasant 58-year-old female who presented to the office today for evaluation and management of her chronic lower back pain History, physical exam and provocative testing consistent with bilateral sacroiliac joint dysfunction Patient has exhausted conservative therapy including PT, home exercise program, nonsteroidal anti-inflammatory medications, muscle relaxers and SI belting without improvement of her pain Discussed options for treatment including diagnostic interventional testing, steroid injections, peripheral nerve stimulation with Sprint and neuromodulation. Will schedule for fluoroscopy guided bilateral diagnostic sacroiliac joint injections with local anesthetic. Patient is requesting Ativan prior to the procedure. Reviewed therapeutic options including steroid injections, nerve stimulation with Curonix and sacroiliac joint fusion. Patient also requesting to treat her chronic thoracic myofascial pain. Discussed options for treatment including diagnostic injections followed by Sprint PNS. We will discuss this further at follow up appointment, she would like to focus on SIJ pain first. All questions and concerns have been answered and patient agrees with the plan. Follow up after injections, sooner if needed. Orders: Orders FL guidance in treatment room Today M53.3 - Sacrococcygeal disorders, not elsewhere classified Coding Level of Care Code Procedure Only Diagnoses Sacroiliac joint dysfunction of both sides M53.3 Low back pain M54.50 Myofascial pain syndrome of thoracic spine M79.18 Thoracic back pain M54.6
[2024-02-26 07:20] VITALS: BP 132/68; PULSE 88; RESP 16; O2SAT 96; BMI 36.7
[2024-02-26 08:20] VITALS: BP 186/100; PULSE 73; O2SAT 98
== END 2024-02-26 08:03 | disposition home or self-care (01) ==
LOC: HO.PMCPRC 07:15
PROVIDERS: PCP Family Medicine; Visit Provider Anesthesiology
DX: M53.3 Sacrococcygeal disorders, not elsewhere classified (principal); M54.50 Low back pain, unspecified; M79.18 Myalgia, other site; M54.6 Pain in thoracic spine
CPT/HCPCS: 27096

== ENCOUNTER 2024-02-27 13:16 | Outpatient (AMB) | payer OTHER, SELFPAY ==
--- NOTE | 2024-02-27 13:16 | MHC.OFFVIS ---
Intake Visit Reasons: Procedure Follow Up Allergies Seasonal Allergies Allergy (Severe, Verified 02/26/24 07:22) Itchy Eyes lisinopril Adverse Reaction (Severe, Verified 02/26/24 07:22) Cough pregabalin [From Lyrica] Adverse Reaction (Severe, Verified 02/26/24 07:22) Shortness of Breath celecoxib [From Celebrex] Adverse Reaction (Intermediate, Verified 02/26/24 07:22) Hypertension varenicline [From Chantix] Adverse Reaction (Intermediate, Verified 02/26/24 07:22) Depression HPI Comments Details: Telephone visit completed today for follow up. Patient underwent bilateral therapeutic sacroiliac joint injections 1 day ago Reports minimal improvement in pain, function and mobility since the injections. Pain today rated as 6/10. States prior to injections pain was 7/10. Prior: Lety is a very pleasant 58 year old female who presents to the office today for evaluation management of her chronic lower back and midline thoracic back pain Patient reports that she has been suffering with these pains for several years, the lower back pain has worsened over the last 3 months Today she is requesting to focus on the lower back pain Pain today is rated as 7/10, constant Pain bilateral PSIS, with radiation to posterior thighs and bilateral groin Worse with standing, sitting and climbing stairs Pain does not radiate past level of the knee Denies red flag symptoms including new loss of bowel, bladder or saddle anesthesia PT in the past has not been helpful. For the last 2 months she has been doing HEP focus on bilateral SIJ. No improvement with the HEP. Using SIJ belt, feels some mild relief when wearing it but pain remains severe with stairs. Patient has tried prescription NSAIDS, muscle relaxers, topical medications and lidocaine patches for greater than 6 months without improvement. She will be starting Wegovy for weight loss soon. Hoping that this will improve her pain. Currently being tapered off of her Prozac with plan to start Cymbalta. She was advised that this may also improve her pain. In terms of muscle damage condition is described as stabbing, tingling, pulling, tugging, pinching, cramping, tiring, sore, hurting, aching, punishing, spreading, tight, squeezing. Pain is negatively impacting patient's enjoyment of life, normal function, ability to perform activities of daily living, sleep and walking Patient has also looking to be treated for chronic thoracic back pain. She previously underwent sterile injections at T3, T4-T7 and T8 with very short-term relief. She had trigger point injections were which were also not help. No relief with NSAIDs, ktrn-cvg-autosqa medications, topical medications and muscle relaxers. [facility] Medical History Polyarthralgia Raynauds phenomenon DDD (degenerative disc disease), cervical Mediastinal mass Asthma Chronic pain syndrome Costochondritis Thrombocytosis TMJ (temporomandibular joint syndrome) Numbness and tingling of left leg Tremors of nervous system Lyme disease Hypersomnia Snoring Hyperlipidemia HTN (hypertension) GERD (gastroesophageal reflux disease) Generalized headaches Back pain Arthritis Surgical History Mediastinal mass (11/08/23) History of mandibular surgery S/P cervical spinal fusion Hx of cervical spine surgery Hx of endoscopy Hx of colonoscopy History of salpingo-oophorectomy History of laparoscopy Hx of arthroscopy Hx of tubal ligation Hx of hysterectomy, total Hx of shoulder surgery Hx of knee surgery Family History Father Heart disease Cancer Prostate cancer Mother Dementia Congestive heart failure Social History Housing: House Are you a primary healthcare social worker to a significant other at home: No Do you presently have visiting nurse or other home services: No Alcohol intake: current Patient Tobacco Use Status: Current everyday Tobacco user Tobacco use type: Cigarette Cigarettes Per Day: 2 Years Smoked: 26 e-Cigarette/Vaping Use: Never Used Second Hand Smoke Exposure: No service: No Current occupational status: disabled Current occupational exposures/hazards: No Cognitive needs: No Hearing needs: No Vision needs: No Review of Systems Const All systems reviewed & are unremarkable except as noted in HPI and below Physical Exam Telephone visit only: Physical exam deferred Telehealth Telehealth Telehealth Platform: Telephone Location of provider rendering services: practice address Location of patient: address on file Patient Identification confirmed using: Name, : Yes Telehealth method: voice only Patient verbally consented to treatment: Yes Patient verbally consented to billing insurance company: Yes Patient informed of any privacy concerns related to visit: Yes Minutes spent on Phone/Video with Pt.: 7 Results Reviewed Results Reviewed: 09/08/2021 MRI Thoracic Assessment & Plan Assessment & Plan (1) Low back pain: Code(s): M54.50 - Low back pain, unspecified Category: Medical (2) Sacroiliac joint dysfunction of both sides: Code(s): M53.3 - Sacrococcygeal disorders, not elsewhere classified Category: Medical (3) Myofascial pain syndrome of thoracic spine: Code(s): M79.18 - Myalgia, other site Category: Medical (4) Thoracic back pain: Code(s): M54.6 - Pain in thoracic spine Category: Medical Plan Telephone visit completed today for follow-up, 1 day status post bilateral therapeutic sacroiliac joint injections Denies improvement in pain, functional mobility in the 1st 24 hours Discussed at length with patient, she is aware that it can take 3 days before she will feel the therapeutic effects of the steroids. Will consider MRI lumbar spine if no improvement in the pain given patient's persistent pain despite conservative treatment. All questions and concerns were answered, patient agrees with the plan. Follow up in 1 month, sooner if needed Coding Level of Care Code Tele Est Pt Level 3 (20611) Diagnoses Low back pain M54.50 Sacroiliac joint dysfunction of both sides M53.3 Myofascial pain syndrome of thoracic spine M79.18 Thoracic back pain M54.6
== END 2024-02-27 13:16 | disposition home or self-care (01) ==
LOC: HO.PMC 13:16
PROVIDERS: PCP Family Medicine; Visit Provider Registered Nurse Emergency
DX: M54.50 Low back pain, unspecified (principal); M53.3 Sacrococcygeal disorders, not elsewhere classified; M79.18 Myalgia, other site; M54.6 Pain in thoracic spine
CPT/HCPCS: 99441

== ENCOUNTER → 2024-02-27 13:16 | Outpatient (BNVA) | payer OTHER, SELFPAY | PROVIDERS: PCP Family Medicine; Visit Provider Registered Nurse Emergency ==

== ENCOUNTER 2024-03-12 10:23 | Outpatient (AMB) | payer OTHER, SELFPAY ==
--- NOTE | 2024-03-12 10:25 | A.OFFVIS_ITS ---
Vital Signs 3 03/12/24 10:27 Height 5 ft Weight 189 lb BMI 36.9 BP 184/98 H Blood Pressure Location Rt brachial Position Sitting Pulse 80 Pulse Source Pulse Oximeter Pulse Oximetry (%) 96 Oxygen Delivery Method Room Air Intake Visit Reasons: increased back pain Allergies Seasonal Allergies Allergy (Severe, Verified 03/12/24 10:30) Itchy Eyes lisinopril Adverse Reaction (Severe, Verified 03/12/24 10:30) Cough pregabalin [From Lyrica] Adverse Reaction (Severe, Verified 03/12/24 10:30) Shortness of Breath celecoxib [From Celebrex] Adverse Reaction (Intermediate, Verified 03/12/24 10:30) Hypertension varenicline [From Chantix] Adverse Reaction (Intermediate, Verified 03/12/24 10:30) Depression Medication List - Last Reconciled 03/12/24 by Rosalba Franz albuterol sulfate 90 mcg/actuation 2 puffs inhalation Q6H PRN 30 days atorvastatin 40 mg PO BEDTIME 90 days benzonatate 100 mg PO BID PRN bupropion HCl XL 300 mg PO QAM 90 days buspirone 15 mg (1.5 x 10 mg) PO BID [cloth tape As directed] cyclobenzaprine 10 mg PO TID cyclosporine 0.05% (Restasis) 1 drp ophthalmic (eye) Q12H diclofenac sodium 1% 4 grams topical QID PRN 30 days diltiazem HCl ER (Tiadylt ER) 180 mg PO QAM 90 days fluoxetine 40 mg (2 x 20 mg) PO QAM 30 days fluticasone propion-salmeterol 250-50 mcg/dose (Advair Diskus) 1 inh inhalation Q12H lorazepam (Ativan) 1 mg PO DAILY PRN magnesium gluconate (Mag-G) 27 mg PO BID meloxicam 15 mg PO QAM montelukast (Singulair) 10 mg PO QAM 90 days omega 2-vyg-xoy-fish oil 300-1,000 mg (Fish Oil) 1 cap PO QAM omeprazole 20 mg PO QAM 90 days propranolol ER 60 mg PO BEDTIME semaglutide (weight loss) 0.5 mg (0.5 mL) subcut QWEEK 28 days semaglutide (weight loss) (Wegovy) mg subcut telmisartan 80 mg PO QAM 90 days [xeroform As directed] HPI Comments Details: Patient presents to the office today for follow up lower back pain report some improvement in the pain to her PSIS since injections 2 weeks ago nut midline thoracic and lower back pain persist and now feel worse endorses continued feeling of BLE heaviness and worsening numbness denies red flag symptoms including new loss of bowel, bladder or saddle anesthesia Prior: Telephone visit completed today for follow up. Patient underwent bilateral therapeutic sacroiliac joint injections 1 day ago Reports minimal improvement in pain, function and mobility since the injections. Pain today rated as 6/10. States prior to injections pain was 7/10. Prior: Lety is a very pleasant 58 year old female who presents to the office today for evaluation management of her chronic lower back and midline thoracic back pain Patient reports that she has been suffering with these pains for several years, the lower back pain has worsened over the last 3 months Today she is requesting to focus on the lower back pain Pain today is rated as 7/10, constant Pain bilateral PSIS, with radiation to posterior thighs and bilateral groin Worse with standing, sitting and climbing stairs Pain does not radiate past level of the knee Denies red flag symptoms including new loss of bowel, bladder or saddle anesthesia PT in the past has not been helpful. For the last 2 months she has been doing HEP focus on bilateral SIJ. No improvement with the HEP. Using SIJ belt, feels some mild relief when wearing it but pain remains severe with stairs. Patient has tried prescription NSAIDS, muscle relaxers, topical medications and lidocaine patches for greater than 6 months without improvement. She will be starting Wegovy for weight loss soon. Hoping that this will improve her pain. Currently being tapered off of her Prozac with plan to start Cymbalta. She was advised that this may also improve her pain. In terms of muscle damage condition is described as stabbing, tingling, pulling, tugging, pinching, cramping, tiring, sore, hurting, aching, punishing, spreading, tight, squeezing. Pain is negatively impacting patient's enjoyment of life, normal function, ability to perform activities of daily living, sleep and walking Patient has also looking to be treated for chronic thoracic back pain. She previously underwent sterile injections at T3, T4-T7 and T8 with very short-term relief. She had trigger point injections were which were also not help. No relief with NSAIDs, [id number] medications, topical medications and muscle relaxers. [facility] Medical History Polyarthralgia Raynauds phenomenon DDD (degenerative disc disease), cervical Mediastinal mass Asthma Chronic pain syndrome Costochondritis Thrombocytosis TMJ (temporomandibular joint syndrome) Numbness and tingling of left leg Tremors of nervous system Lyme disease Hypersomnia Snoring Hyperlipidemia HTN (hypertension) GERD (gastroesophageal reflux disease) Generalized headaches Back pain Arthritis Surgical History Mediastinal mass (11/08/23) History of mandibular surgery S/P cervical spinal fusion Hx of cervical spine surgery Hx of endoscopy Hx of colonoscopy History of salpingo-oophorectomy History of laparoscopy Hx of arthroscopy Hx of tubal ligation Hx of hysterectomy, total Hx of shoulder surgery Hx of knee surgery Family History Father Heart disease Cancer Prostate cancer Mother Dementia Congestive heart failure Social History Housing: House Are you a primary child care director to a significant other at home: No Do you presently have visiting nurse or other home services: No Alcohol intake: current Patient Tobacco Use Status: Current everyday Tobacco user Tobacco use type: Cigarette Cigarettes Per Day: 2 Years Smoked: 26 e-Cigarette/Vaping Use: Never Used Second Hand Smoke Exposure: No service: No Current occupational status: disabled Current occupational exposures/hazards: No Cognitive needs: No Hearing needs: No Vision needs: No Review of Systems Const All systems reviewed & are unremarkable except as noted in HPI and below Physical Exam Vital Signs: Last Vital Signs Pulse 80 03/12/24 10:27 BP 184/98 H 03/12/24 10:27 Pulse Ox 96 03/12/24 10:27 Oxygen Delivery Method Room Air 03/12/24 10:27 BMI result Body Mass Index 36.9 General: awake, alert, oriented. Answers questions appropriately. Fully engaged in examination. Skin: warm, dry, intact HEENT: Normocephalic. Hearing intact. Cardiac: External chest normal in appearance. Respiratory: No cough, audible wheezing or stridor. Abdomen: without gross distension. MS: No obvious swelling or deformities. SHANI positive bilaterally Tenderness to palpation thoracic and lumbar midline vertebrae and paraspinal muscles SLR neg bilaterally Neurological: Oriented to person, place, time and situation. Thought process intact. Psychiatric: Appropriate mood and affect. Good judgment and insight. Results Reviewed Results Reviewed: 02/01/2024 XR/XR lumbar spine 2-3V FINDINGS: Mild dextroscoliosis of the lumbar spine. Surgical clips in the pelvis. Facet arthritis in the lower lumbar spine. Moderate multilevel lumbar spondylosis with moderate loss of disc space height at L2-L3, L3-L4, L4-L5 and marked loss of disc space at L5-S1. IMPRESSION: Moderate multilevel lumbar spondylosis. 09/08/2021 MRI Thoracic Assessment & Plan Assessment & Plan (1) Chronic pain syndrome: Code(s): G89.4 - Chronic pain syndrome Category: Medical (2) Myofascial pain syndrome of thoracic spine: Code(s): M79.18 - Myalgia, other site Category: Medical (3) Thoracic back pain: Code(s): M54.6 - Pain in thoracic spine Category: Medical (4) Post laminectomy syndrome: Code(s): M96.1 - Postlaminectomy syndrome, not elsewhere classified Category: Medical (5) Lumbar spondylosis: Code(s): M47.816 - Spondylosis without myelopathy or radiculopathy, lumbar region Category: Medical (6) Myofascial pain syndrome of thoracic spine: Code(s): M79.18 - Myalgia, other site Category: Medical (7) Thoracic back pain: Code(s): M54.6 - Pain in thoracic spine Category: Medical (8) Post laminectomy syndrome: Code(s): M96.1 - Postlaminectomy syndrome, not elsewhere classified Category: Medical Plan Lety presented back to the office today for follow-up thoracic and lumbar back pain Patient has exhausted greater than 6 months of conservative treatment including physical therapy, home exercise program, nonsteroidal anti-inflammatory medications, muscle relaxers and bracing without improvement of her symptoms MRI lumbar and thoracic ordered for evaluation Continue with meloxicam and cyclobenzaprine as prescribed by PCP Follow up in the office after MRI, sooner if needed Orders: Orders 2 MR lumbar spine wo con Today G89.4 - Chronic pain syndrome, M47.816 - Spondylosis without myelopathy or radiculopathy, lumbar region, M96.1 - Postlaminectomy syndrome, not elsewhere classified MR thoracic spine wo con Today M54.6 - Pain in thoracic spine, M79.18 - Myalgia, other site, M96.1 - Postlaminectomy syndrome, not elsewhere classified Coding Level of Care Code Est Pt Level 3 (25737) Diagnoses Chronic pain syndrome G89.4 Myofascial pain syndrome of thoracic spine M79.18 Thoracic back pain M54.6 Post laminectomy syndrome M96.1 Lumbar spondylosis M47.816
[2024-03-12 10:27] VITALS: BP 184/98; PULSE 80; O2SAT 96; BMI 36.9
== END 2024-03-12 11:01 | disposition home or self-care (01) ==
PROVIDERS: PCP Family Medicine; Visit Provider Registered Nurse Emergency
DX: G89.4 Chronic pain syndrome (principal); M79.18 Myalgia, other site; M54.6 Pain in thoracic spine; M96.1 Postlaminectomy syndrome, not elsewhere classified; M47.816 Spondylosis without myelopathy or radiculopathy, lumbar region
CPT/HCPCS: 99213

== ENCOUNTER → 2024-03-12 10:23 | Outpatient (BNVA) | payer OTHER, SELFPAY | PROVIDERS: PCP Family Medicine; Visit Provider Registered Nurse Emergency ==

== ENCOUNTER 2024-03-14 09:12 | Outpatient (AMB) | payer OTHER, SELFPAY ==
--- NOTE | 2024-03-14 09:24 | AM.OFFWIN_ITS ---
Intake Vital Signs 03/14/24 09:27 Height 5 ft Weight 187 lb BMI 36.5 BP 116/68 Blood Pressure Location Rt brachial Position Sitting Pulse 96 Pulse Source Pulse Oximeter Temp 98.6 F Temp Source Oral Pulse Oximetry (%) 98 Oxygen Delivery Method Room Air Intake Visit Reasons: EP ?Strep/white spots Intake Note: pt here c/o white spots in throat. ? strep. Patient Tobacco Use Status: Current everyday Tobacco user Allergies Seasonal Allergies Allergy (Severe, Verified 03/14/24 09:25) Itchy Eyes lisinopril Adverse Reaction (Severe, Verified 03/14/24 09:25) Cough pregabalin [From Lyrica] Adverse Reaction (Severe, Verified 03/14/24 09:25) Shortness of Breath celecoxib [From Celebrex] Adverse Reaction (Intermediate, Verified 03/14/24 09:25) Hypertension varenicline [From Chantix] Adverse Reaction (Intermediate, Verified 03/14/24 09:25) Depression Do you need a note to return to daycare/school/sports/work: No HPI HPI Comments History of Present Illness Details Pt is a 58 year old female c/o white spots in the back of her mouth. She states her dentist told her yesterday they were there, she cannot see them. She denies an acute cough, congestion, fevers, sick contacts or a sore throat. She states she uses a steroid inhaler but rinses after each use. She also notes vaginal discharge that is white. She denies a history of diabetes and states she gets labs done regularly and they've always been normal. She states she is getting labs done tomorrow for her PCP, Dr dejesus [facility] Medical History Polyarthralgia Raynauds phenomenon DDD (degenerative disc disease), cervical Mediastinal mass Asthma Chronic pain syndrome Costochondritis Thrombocytosis TMJ (temporomandibular joint syndrome) Numbness and tingling of left leg Tremors of nervous system Lyme disease Hypersomnia Snoring Hyperlipidemia HTN (hypertension) GERD (gastroesophageal reflux disease) Generalized headaches Back pain Arthritis Surgical History Mediastinal mass (11/08/23) History of mandibular surgery S/P cervical spinal fusion Hx of cervical spine surgery Hx of endoscopy Hx of colonoscopy History of salpingo-oophorectomy History of laparoscopy Hx of arthroscopy Hx of tubal ligation Hx of hysterectomy, total Hx of shoulder surgery Hx of knee surgery Family History Father Heart disease Cancer Prostate cancer Mother Dementia Congestive heart failure Social History Housing: House Are you a primary healthcare risk control consultant to a significant other at home: No Do you presently have visiting nurse or other home services: No Alcohol intake: current Patient Tobacco Use Status: Current everyday Tobacco user Tobacco use type: Cigarette Cigarettes Per Day: 2 Years Smoked: 26 e-Cigarette/Vaping Use: Never Used Second Hand Smoke Exposure: No service: No Current occupational status: disabled Current occupational exposures/hazards: No Cognitive needs: No Hearing needs: No Vision needs: No Review of Systems Const All systems reviewed & are unremarkable except as noted in HPI and below Physical Exam Vital Signs: Last Vital Signs Temp 98.6 F 03/14/24 09:27 Pulse 96 03/14/24 09:27 BP 116/68 03/14/24 09:27 Pulse Ox 98 03/14/24 09:27 Oxygen Delivery Method Room Air 03/14/24 09:27 BMI result Body Mass Index 36.5 Const General: cooperative, healthy appearing, comfortable, no acute distress and well developed Orientation/consciousness: patient oriented x3 Limitations: no limitations HEENT Head: Yes normal to inspection Mouth: lip normal, tongue normal, oropharynx normal (scant white areas on left and right tonsils and roof of oropharynx) and moist mucous membranes Teeth and gingiva: dentition normal Eyes General: appearance normal, both eyes and all related structures Neck Neck: Yes normal visual inspection and Yes full ROM Resp Effort & Inspection: normal respiratory effort and able to speak in complete sentences Skin General skin exam: no rashes or lesions noted Neuro General: patient oriented x3 Extrem General: Yes normal to inspection Results AMB Rapid Strep AMB Rapid Strep Negative Last Edit by Handy Gaines CMA on 03/14/24 09:41 Results Reviewed Results Reviewed: Laboratory Last Values Strep Scn Rapid Clinic Negative 03/14/24 09:37 Assessment & Plan Assessment & Plan (1) Oral pharyngeal candidiasis: Code(s): B37.0 - Candidal stomatitis Plan: rapid strep negative, no signs or symptoms of strep throat. more likely thrush from steroid inhaler, sent rx for nystatin rinse. if no resolution, rec to follow up with PCP. Also, messaged PCP check A1c when pt gets labs done tomsameer peguero. (2) Candidiasis of vagina: Code(s): B37.31 - Acute candidiasis of vulva and vagina Plan: sent rx for 2 doses of diflucan tablet Plan see above Orders: Orders AMB Rapid Strep Screen Today Z13.9 - Encounter for screening, unspecified Medications: New nystatin administer 1/2 of dose in each side of the mouth 5 mL buccal QID 140 mL 0RF 7 days fluconazole may repeat second dose 72 hrs after first dose if symptoms persist 150 mg PO Q3D 2 tabs 0RF 2 doses Coding Level of Care Code Est Pt Level 4 (17027) Diagnoses Oral pharyngeal candidiasis B37.0 Candidiasis of vagina B37.31
[2024-03-14 09:27] VITALS: BP 116/68; PULSE 96; TEMP 37; O2SAT 98; BMI 36.5
== END 2024-03-14 10:15 | disposition home or self-care (01) ==
PROVIDERS: PCP Family Medicine; Visit Provider Physician Assistant
DX: B37.0 Candidal stomatitis (principal); B37.31 Acute candidiasis of vulva and vagina; Z13.9 Encounter for screening, unspecified
CPT/HCPCS: 87880; 99214

== ENCOUNTER 2024-03-18 13:33 | Outpatient (AMB) | payer OTHER, SELFPAY ==
[2024-03-18 13:39] VITALS: BP 142/96; PULSE 83; O2SAT 99; BMI 37.1
--- NOTE | 2024-03-18 13:39 | A.OFFVIS_ITS ---
Vital Signs 03/18/24 13:39 Height 5 ft Weight 190 lb BMI 37.1 BP 142/96 H Blood Pressure Location Lt brachial Position Sitting Pulse 83 Pulse Source Pulse Oximeter Pulse Oximetry (%) 99 Oxygen Delivery Method Room Air Intake Visit Reasons: ? thrush Allergies Seasonal Allergies Allergy (Severe, Verified 03/18/24 13:42) Itchy Eyes lisinopril Adverse Reaction (Severe, Verified 03/18/24 13:42) Cough pregabalin [From Lyrica] Adverse Reaction (Severe, Verified 03/18/24 13:42) Shortness of Breath celecoxib [From Celebrex] Adverse Reaction (Intermediate, Verified 03/18/24 13:42) Hypertension varenicline [From Chantix] Adverse Reaction (Intermediate, Verified 03/18/24 13:42) Depression HPI HPI ? thrush: Details: Lety is a pleasant 58 year old female, less than 10 pack year history, currently smokes 1/4 ppd, with underlying history of asthma, diagnosed as an adult and GERD, controlled on omeprazole. She underwent thorascopic excision of anterior mediastinal mass on 11/10/[address] Alex which was negative for carcinoma. She continues to report suboptimal control on Breo with persistent dry cough and dyspnea on exertion. She reports upcoming evaluation with GI to assess for GERD contributing to cough. Today she presents for an acute visit. She had dental work on last and there was note of white patches on oropharynx with associated sore throat. Of note, she has also had body aches for the past 6-8 weeks. Denies fevers, chills or sick contacts. She then went to [facility] the following day for evaluation, strep negative and she was treated for thrush with nystatin swish and spit. She continues to report white spots at the back of mouth, throat irritation. She denies painful swallowing or difficulty swallowing. [facility] Medical History Polyarthralgia Raynauds phenomenon DDD (degenerative disc disease), cervical Mediastinal mass Asthma Chronic pain syndrome Costochondritis Thrombocytosis TMJ (temporomandibular joint syndrome) Numbness and tingling of left leg Tremors of nervous system Lyme disease Hypersomnia Snoring Hyperlipidemia HTN (hypertension) GERD (gastroesophageal reflux disease) Generalized headaches Back pain Arthritis Surgical History Mediastinal mass (11/08/23) History of mandibular surgery S/P cervical spinal fusion Hx of cervical spine surgery Hx of endoscopy Hx of colonoscopy History of salpingo-oophorectomy History of laparoscopy Hx of arthroscopy Hx of tubal ligation Hx of hysterectomy, total Hx of shoulder surgery Hx of knee surgery Family History Father Heart disease Cancer Prostate cancer Mother Dementia Congestive heart failure Social History Housing: House Are you a primary critical care clinical nurse specialist to a significant other at home: No Do you presently have visiting nurse or other home services: No Alcohol intake: current Patient Tobacco Use Status: Current everyday Tobacco user Tobacco use type: Cigarette Cigarettes Per Day: 2 Years Smoked: 26 e-Cigarette/Vaping Use: Never Used Second Hand Smoke Exposure: No service: No Current occupational status: disabled Current occupational exposures/hazards: No Cognitive needs: No Hearing needs: No Vision needs: No Review of Systems Const Denies chills, Denies excessive sweating, Denies fever(s), Denies headache(s) and Denies night sweats Eyes Denies dry eyes, Denies irritation and Denies itchy eyes ENT Reports Normal hearing present, Denies headache(s), Denies nasal congestion, Denies nasal discharge and Denies post nasal drip Card Denies chest pain, Denies chest pain at rest, Denies chest pain with activity, Denies claudication, Denies leg edema, Denies orthopnea and Denies paroxysmal nocturnal dyspnea Resp Denies chest congestion, Denies excessive phlegm production, Denies pain on inspiration, Denies pain with cough, Denies stridor and Denies wheezing Musc Denies myalgias Neuro Reports Normal hearing present and Denies headache(s) Endo Denies excessive sweating Yaw/Lymph Denies lymphadenopathy Aller/Immun Denies itchy eyes, Denies seasonal rhinorrhea and Denies wheezing Physical Exam Vital Signs: Last Vital Signs Pulse 83 03/18/24 13:39 BP 142/96 H 03/18/24 13:39 Pulse Ox 99 03/18/24 13:39 Oxygen Delivery Method Room Air 03/18/24 13:39 BMI result Body Mass Index 37.1 Const General: cooperative, healthy appearing, comfortable, no acute distress, well developed and alert Nutritional Appearance: obese Orientation/consciousness: patient oriented x3 Limitations: no limitations HEENT Head: Yes normal to inspection, Yes normocephalic and Yes atraumatic Ears: hearing grossly normal bilaterally and external ears normal Mouth: Normal oral and palatal mucosa present, lip normal, tongue normal, oropharynx normal (few scattered white areas posterior oropharynx) and moist mucous membranes abnormal (dry) Eyes General: appearance normal, both eyes and all related structures Eyelids: Yes eyelids normal Sclerae: sclerae normal EOM: EOMs intact bilaterally Neck Neck: Yes normal visual inspection and Yes no lymphadenopathy Lymphatic: no lymphadenopathy noted Chest Chest palpation & inspection: normal inspection of the chest Resp Effort & Inspection: normal respiratory effort, able to speak in complete sentences, no audible wheezes, no cough, no stridor, not tachypneic, no tripod positioning and no use of accessory muscles Auscultation: clear to auscultation bilaterally Cardio Jugular venous distension: no JVD Rate: regular rate Rhythm: regular rhythm Skin Other: warm, dry General skin exam: no rashes or lesions noted Neuro General: patient oriented x3 Cranial nerves: Yes Normal hearing present Cognition (Neuro): normal cognition Gait exam (Neuro): Normal gait present Extrem General: Yes normal to inspection, Yes capillary refill normal, Yes no clubbing, cyanosis or edema and Yes no pedal edema Psych Appearance: grossly normal and well kempt Speech and movement: Normal speech and movement present and Clear speech present Affect: normal affect Attitude: cooperative Thought process: Normal thought process present Thought content: Normal thought content present Insight: Good insight present (Psych) Judgement: Good judgement present (Psych) Assessment & Plan Assessment & Plan (1) Oral pharyngeal candidiasis: Code(s): B37.0 - Candidal stomatitis Category: Medical (2) Asthma: Code(s): J45.909 - Unspecified asthma, uncomplicated Category: Medical (3) GERD (gastroesophageal reflux disease): Code(s): K21.9 - Gastro-esophageal reflux disease without esophagitis Category: Medical (4) Cough: Code(s): R05.9 - Cough, unspecified Category: Medical Qualifiers: Cough type: acute Qualified Code(s): R05.1 - Acute cough (5) Personal history of tobacco use: Code(s): Z87.891 - Personal history of nicotine dependence Category: Social Hx (6) Obesity (BMI 30-39.9): Code(s): E66.9 - Obesity, unspecified Category: Medical Plan At this time, will treat for thrush likely related to ICS. Prior treatment of swish and spit ineffective, will send swish and swallow nystatin. If symptoms persist advised following up with PCP. Encouraged patient to use Breo singulair antihistamine and albuterol MDI PRN, will look for GI input. Discussed importance of smoking cessation. All questions were answered and patient is in agreement of plan. Will follow up for regularly scheduled appointment or sooner if needed. Medications: New nystatin administer 1/2 of dose in each side of the mouth and swallow 400,000 units (4 mL) buccal QID 7 days 473 mL 0RF Discontinued nystatin administer 1/2 of dose in each side of the mouth Discontinued Reason: Patient Completed Course 5 mL buccal QID 7 days 140 mL 0RF Coding Level of Care Code Est Pt Level 3 (75629) Diagnoses Oral pharyngeal candidiasis B37.0 Asthma J45.909 GERD (gastroesophageal reflux disease) K21.9 Acute cough R05.1 Cough type: acute Personal history of tobacco use Z87.891 Obesity (BMI 30-39.9) E66.9
== END 2024-03-18 14:25 | disposition home or self-care (01) ==
PROVIDERS: PCP Family Medicine; Visit Provider Nurse Practitioner Family
DX: B37.0 Candidal stomatitis (principal); J45.909 Unspecified asthma, uncomplicated; K21.9 Gastro-esophageal reflux disease without esophagitis; R05.1 Acute cough; Z87.891 Personal history of nicotine dependence; E66.9 Obesity, unspecified
CPT/HCPCS: 99213

== ENCOUNTER → 2024-03-18 13:33 | Outpatient (BNVA) | payer OTHER, SELFPAY | PROVIDERS: PCP Family Medicine; Visit Provider Nurse Practitioner Family ==

== ENCOUNTER 2024-03-19 08:27 | Outpatient (REF) | payer OTHER, SELFPAY ==
[2024-03-19 10:51] LABS: MANUAL DIFF FLAG NO
[2024-03-19 11:20] LABS: Basophils Percent Auto 0.4 % (0-2); Eosinophils Absolute Auto 0.1 X10*3/uL (0.0-0.4); Eosinophils Percent Auto 0.8 % (0-4); Hematocrit 40.9 % (37.0-47.0); Hemoglobin 14.6 g/dl (12.0-16.0); Imm Gran Abs Auto 0.06 X10*3/uL (0.00-0.03); Imm Gran Pct Auto 0.6 % (0.0-0.4); Lymphocytes Absolute Auto 1.9 X10*3/uL (1.2-4.9); Lymphocytes Percent Auto 18.7 % (20-40); Mean Corpuscular HGB Conc 35.7 g/dl (31.0-35.0); Mean Corpuscular Hemoglobin 30.5 pg (27.0-33.0); Mean Corpuscular Volume 85.6 fL (80.0-98.0); Mean Platelet Volume 8.2 fL (9.4-12.3); Monocytes Absolute Auto 0.6 X10*3/uL (0.1-1.2); Monocytes Percent Auto 6.3 % (2-11); Neutrophils Absolute Auto 7.4 x10*3/uL (2.0-8.3); Neutrophils Percent Auto 73.2 % (45-73); Platelet Count 401 X10*3/uL (160-400); Red Blood Count 4.78 X10*6/uL (4.20-5.50); Red Cell Distribution Width 12.9 % (11.0-16.0); White Blood Count 10.1 X10*3/uL (4.8-10.8)
[2024-03-19 11:55] LABS: Alanine Aminotransferase 33 U/L (0-31); Alkaline Phosphatase 103 U/L (39-117); Anion Gap 13 (12-20); Aspartate Amino Transferase 19 U/L (5-31); Bilirubin Total 0.3 mg/dL (0.0-1.0); Blood Urea Nitrogen 10 mg/dL (9-16); Calcium 9.8 mg/dL (8.4-10.2); Carbon Dioxide 21 mmol/L (22-29); Chloride 95 mmol/L (96-108); Cholesterol 169 mg/dL (<200); Estimated Glomerular Filt Rate > 60; Glucose Fasting 84 mg/dL (60-99); HDL Cholesterol 81 mg/dL (>40); LDL Cholesterol Calculated 76 mg/dL (<100); Potassium 4.2 mmol/L (3.3-5.1); Sodium 125 mmol/L (135-145); Total Protein 7.1 g/dL (6.5-8.0); Triglycerides 63 mg/dL (<150)
== END 2024-03-19 08:28 | disposition home or self-care (01) ==
LOC: HO.HMGCLDS 08:27
PROVIDERS: PCP Family Medicine; Visit Provider Family Medicine
DX: Z00.00 Encounter for general adult medical examination without abnormal findings (principal)
CPT/HCPCS: 36415; 80053; 80061; 85025

== ENCOUNTER 2024-03-20 11:15 | Outpatient (AMB) | payer OTHER, SELFPAY ==
--- NOTE | 2024-03-20 11:24 | MHC.PC.OV ---
Vital Signs 03/20/24 11:38 BP 116/88 Blood Pressure Location Rt brachial Position Sitting Intake Visit Reasons: f/u chronic conditions Allergies Seasonal Allergies Allergy (Severe, Verified 03/18/24 13:42) Itchy Eyes lisinopril Adverse Reaction (Severe, Verified 03/18/24 13:42) Cough pregabalin [From Lyrica] Adverse Reaction (Severe, Verified 03/18/24 13:42) Shortness of Breath celecoxib [From Celebrex] Adverse Reaction (Intermediate, Verified 03/18/24 13:42) Hypertension varenicline [From Chantix] Adverse Reaction (Intermediate, Verified 03/18/24 13:42) Depression Tobacco use date assessed: 01/30/24 Dental Screening Dental Screen Date: 01/30/24 HPI HPI Comments History of Present Illness Details This is a 58-year-old female with a past medical history of obesity, tobacco use, chronic pain, thrombocytosis, hyperlipidemia, GERD and hypertension presenting as a follow up. The patient was in the waiting room when her reported to the staff that she needed to lay down. The patient was brought into in exam room at that time in a wheelchair. The patient reported muscle weakness, , trembling, dizziness, nausea and fatigue which started about a month ago and has been progressively worsening. Feels like she is going to pass out. She called for the appointment because she had blood work drawn which was ordered by her PCP. She saw things were abnormal on her portal yesterday. Her sodium level is 125. This is down from 135 December 2023. She also reports that her dentist diagnosed with thrush, and he is treating her. She says it feels like there is a ball in her throat when she swallows. Patient says she is having difficulty urinating. She feels like she has to push the urine out with force. Patient tells me that she has been mostly just laying down in her house for the last few days due to weakness. No chest pain, shortness of breath, difficulty speaking, facial droop or numbness. POC glucose 133 today. Physical exam: Constitutional: Alert, in no distress. Initially patient appeared slightly pale and clammy. Appearance improved when she was seated in a wheelchair. Head: Normocephalic. Eyes: Pupils are equal, round and reactive to light. Respiratory: Clear to auscultation. Cardiovascular: S1 S2 regular. No murmurs. Neurologic: Handgrip strength 5/5 with tremoring of upper extremities noted, moves all extremities spontaneously, clear speech, no facial droop Extremities: Warm and well perfused. [facility] Medical History Polyarthralgia Raynauds phenomenon DDD (degenerative disc disease), cervical Mediastinal mass Asthma Chronic pain syndrome Costochondritis Thrombocytosis TMJ (temporomandibular joint syndrome) Numbness and tingling of left leg Tremors of nervous system Lyme disease Hypersomnia Snoring Hyperlipidemia HTN (hypertension) GERD (gastroesophageal reflux disease) Generalized headaches Back pain Arthritis Surgical History Mediastinal mass (11/08/23) History of mandibular surgery S/P cervical spinal fusion Hx of cervical spine surgery Hx of endoscopy Hx of colonoscopy History of salpingo-oophorectomy History of laparoscopy Hx of arthroscopy Hx of tubal ligation Hx of hysterectomy, total Hx of shoulder surgery Hx of knee surgery Family History Father Heart disease Cancer Prostate cancer Mother Dementia Congestive heart failure Social History Housing: House Are you a primary pharmacy care coordinator to a significant other at home: No Do you presently have visiting nurse or other home services: No Alcohol intake: current Patient Tobacco Use Status: Current everyday Tobacco user Tobacco use type: Cigarette Cigarettes Per Day: 2 Years Smoked: 26 e-Cigarette/Vaping Use: Never Used Second Hand Smoke Exposure: No service: No Current occupational status: disabled Current occupational exposures/hazards: No Cognitive needs: No Hearing needs: No Vision needs: No Questionnaire Thrive Questionnaire Date Thrive assessed: 01/30/24 RAFAEL-7 AMB Questionnaire RAFAEL-7 Date RAFAEL - 7 assessed: 10/04/22 Source: Developed by Drs. Celso Blake, Sarah Abreu, Shravan Dominique and colleagues, with an educational allan from [employer]. Physical exam (Primary Care) Vital Signs: Last Vital Signs BP 116/88 03/20/24 11:38 Tobacco/Smoking Status: Tobacco use Status Tobacco use date assessed 01/30/24 03/20/24 11:25 Patient Tobacco Use Status Current everyday Tobacco 03/20/24 11:25 Tobacco use type Cigarette 03/20/24 11:25 e-Cigarette/Vaping Use Never Used 03/20/24 11:25 Thrive Assessment: Date of Thrive Assessment Date Thrive assessed 01/30/24 03/20/24 11:25 Assessment and Plan Assessment & Plan (1) Hyponatremia: Code(s): E87.1 - Hypo-osmolality and hyponatremia Plan: Patient presents with symptomatic hyponatremia with sodium level 125. Advised patient she needs to be seen at the emergency department. Transferred by EMS. She will follow up with this office upon discharge. Coding Level of Care Code Est Pt Level 5 (02210) Complex EM visit Add On G2211 Diagnoses Hyponatremia E87.1
[2024-03-20 11:38] VITALS: BP 116/88
== END 2024-03-20 11:47 | disposition home or self-care (01) ==
LOC: HO.HMGFM 11:15
PROVIDERS: PCP Family Medicine; Visit Provider Physician Assistant Medical
DX: E87.1 Hypo-osmolality and hyponatremia (principal)
CPT/HCPCS: 99215

== ENCOUNTER 2024-03-20 12:07 | Emergency (ER) | payer OTHER, SELFPAY ==
[2024-03-20] VITALS (7 sets, daily range): BP systolic 137–187; BP diastolic 95–130; PULSE 80–98; RESP 16; TEMP 36.1–36.7; O2SAT 97–99; BMI 36.7
--- NOTE | 2024-03-20 12:39 | ED.GENADULT ---
HPI - General Adult General Chief complaint: General Medical Stated complaint: DIZZY,NAUSEA,VOMITING,WEAK,HIGH BP 180/130 Time Seen by Provider: 03/20/24 12:37 Source: patient and EMS Mode of arrival: EMS Limitations: no limitations History of Present Illness ED Provider: Dr. Cabello HPI narrative: Patient states that she has had weakness for a month recently found that her sodium is low. She describes being weak and shakey. Onset (ago): week(s) Severity: mild Related Data Home Medications ?Medication ?Instructions ?Recorded ?Confirmed cyclosporine 0.05 % eye drops in a 1 drp ophthalmic (eye) Q12H 07/03/23 03/12/24 dropperette (Restasis) omega 1-enk-lvq-fish oil 300 1 cap PO QAM 07/03/23 03/12/24 mg-1,000 mg capsule (Fish Oil) meloxicam 15 mg tablet 15 mg PO QAM 07/27/23 03/12/24 propranolol 60 mg capsule,24 60 mg PO BEDTIME 08/28/23 03/12/24 hr,extended release magnesium gluconate 27 mg 27 mg PO BID 10/05/23 03/12/24 magnesium (500 mg) tablet (Mag-G) semaglutide (weight loss) 0.25 mg subcut 02/26/24 03/12/24 mg/0.5 mL subcutaneous pen injector (Bob) Previous Rx's ?Medication ?Instructions ?Recorded bupropion HCl 300 mg 24 hr tablet, 300 mg PO QAM 90 days #90 tabs 11/02/23 extended release cloth tape #1 ea 11/12/23 xeroform #2 ea 11/12/23 montelukast 10 mg tablet 10 mg PO QAM 90 days #90 tabs 11/14/23 (Singulair) omeprazole 20 mg capsule,delayed 20 mg PO QAM 90 days #90 caps 11/19/23 release fluoxetine 20 mg capsule 40 mg (2 x 20 mg) PO QAM 30 days 12/26/23 #60 caps diclofenac sodium 1 % topical gel 4 g topical QID PRN pain 30 days 01/28/24 #100 grams albuterol sulfate 90 mcg/actuation 2 puff inhalation Q6H PRN 01/29/24 aerosol inhaler Shortness Of Breath 30 days #8.5 grams telmisartan 80 mg tablet 80 mg PO QAM 90 days #90 tabs 01/29/24 atorvastatin 40 mg tablet 40 mg PO BEDTIME 90 days #90 tabs 01/30/24 fluticasone 250 mcg-salmeterol 50 1 inh inhalation Q12H #60 ea 02/12/24 mcg/dose blistr powdr for inhalation (Advair Diskus) diltiazem HCl 180 mg capsule,24 180 mg PO QAM 90 days #90 caps 02/19/24 hr,extended release (Tiadylt ER) buspirone 10 mg tablet 15 mg (1.5 x 10 mg) PO BID #90 tabs 02/21/24 semaglutide (weight loss) 0.5 0.5 mg (0.5 mL) subcut QWEEK 28 02/22/24 mg/0.5 mL subcutaneous pen injector days #2 mL fluconazole 150 mg tablet 150 mg PO Q3D 2 doses #2 tabs 03/14/24 cyclobenzaprine 10 mg tablet 10 mg PO TID #84 tabs 03/18/24 lorazepam 1 mg tablet (Ativan) 1 mg PO DAILY PRN anxiety #15 tabs 03/18/24 nystatin 100,000 unit/mL oral 400,000 unit (4 mL) buccal QID 7 03/19/24 suspension days #473 mL Allergies Allergy/AdvReac Type Severity Reaction Status Date / Time Seasonal Allergies Allergy Severe Itchy Eyes Verified 03/20/24 12:26 lisinopril AdvReac Severe Cough Verified 03/18/24 13:42 pregabalin [From Lyrica] AdvReac Severe Shortness Verified 03/18/24 13:42 of Breath celecoxib [From Celebrex] AdvReac Intermediate Hypertensio Verified 03/18/24 13:42 n varenicline [From Chantix] AdvReac Intermediate Depression Verified 03/18/24 13:42 Review of Systems Review of Systems: Yes all other systems are reviewed and are negative Neurologic: Denies Sensory deficit (Neuro) PMFSH Past Medical History Medical History Polyarthralgia Raynauds phenomenon DDD (degenerative disc disease), cervical Mediastinal mass Asthma Chronic pain syndrome Costochondritis Thrombocytosis TMJ (temporomandibular joint syndrome) Numbness and tingling of left leg Tremors of nervous system Lyme disease Hypersomnia Snoring Hyperlipidemia HTN (hypertension) GERD (gastroesophageal reflux disease) Generalized headaches Back pain Arthritis Surgical History Mediastinal mass (11/08/23) History of mandibular surgery S/P cervical spinal fusion Hx of cervical spine surgery Hx of endoscopy Hx of colonoscopy History of salpingo-oophorectomy History of laparoscopy Hx of arthroscopy Hx of tubal ligation Hx of hysterectomy, total Hx of shoulder surgery Hx of knee surgery Family History Family History Father Heart disease Cancer Prostate cancer Mother Dementia Congestive heart failure Social History Social History Housing: House Are you a primary nurse behavioral health care to a significant other at home: No Do you presently have visiting nurse or other home services: No Alcohol intake: current Patient Tobacco Use Status: Current everyday Tobacco user Tobacco use type: Cigarette Cigarettes Per Day: 2 Years Smoked: 26 Smoked in Last 30 Days: No e-Cigarette/Vaping Use: Never Used Second Hand Smoke Exposure: No Use of substances other than those prescribed or required for medical reasons: No Advance Directives: No Advance Directives Information Provided: No service: No Current occupational status: disabled Current occupational exposures/hazards: No Cognitive needs: No Hearing needs: No Vision needs: No Physical Exam ED Vital Signs: Vital Signs - 24 hr 03/20/24 12:24 03/20/24 12:44 03/20/24 12:46 Temperature 97.0 F Pulse Rate 82 82 89 Respiratory Rate 16 Blood Pressure 187/116 H 166/99 H 168/99 H Pulse Oximetry 97 Oxygen Delivery Method Room Air 03/20/24 12:48 03/20/24 14:37 Temperature Pulse Rate 98 85 Respiratory Rate 16 Blood Pressure 158/104 H 147/105 H Pulse Oximetry 98 Oxygen Delivery Method Room Air BMI result Body Mass Index 36.7 Const General: healthy appearing Nutritional Appearance: average body habitus Orientation/consciousness: oriented to person and patient oriented x3 Limitations: no limitations HENMT Head: Yes normal to inspection Ears: external ears normal General nose exam: Normal external nose present Mouth: Normal oral and palatal mucosa present and oropharynx normal Throat: Yes posterior oropharynx normal Eyes General: appearance normal, both eyes and all related structures Neck Neck: Yes normal visual inspection Chest Chest palpation & inspection: normal inspection of the chest Resp Auscultation: clear to auscultation bilaterally Cardio Jugular venous distension: no JVD Rate: regular rate Rhythm: regular rhythm Heart sounds: S1 normal heart sound present and S2 normal heart sound present GI Inspection: Yes normal to inspection Palpation (GI): Soft to palpation, nontender and No hepatosplenomegaly present Auscultation: normal bowel sounds General: Yes no CVA tenderness Back/Spine/Pelvis Back: no CVA tenderness Skin General skin exam: no rashes or lesions noted Neuro General: oriented to person and patient oriented x3 Cranial nerves: Yes CN's II-XII intact bilaterally Motor exam (neuro): 5/5 motor strength present throughout Sensory Exam: No Sensory deficit (Neuro) Extrem General: Yes normal to inspection Psych Appearance: grossly normal Medications Administered Discontinued Medications Generic Name Dose Route Start Last Admin Trade Name Freq PRN Reason Stop Dose Admin Sodium Chloride 1,000 mls @ 500 mls/hr 03/20/24 12:45 03/20/24 13:12 Ns IVCONT 03/20/24 14:44 500 mls/hr .Q2H JESUS Administration Ondansetron HCl 4 mg 03/20/24 12:46 03/20/24 13:03 Ondansetron Hcl 4 Mg/2 Ml Vial IVPUSH 03/20/24 12:47 4 mg ONCE ONE Administration Medical Decision Making Differential Diagnosis Differential Diagnoses: The differential diagnosis associated with the presentation includes (electrolyte abnormality, UTI, renal failure) Admission/Observation Consideration of admission/observation: Escalation of care including admission/observation considered (upon arrival patient was considered for admission) Consult Healthcare Provider Management of the patient was discussed with: Manager Of Quality (Discussed with Dr. Cuevas, in the setting of hyponatremia and urine specific gravity of 1.0005 the patient is clearly drinking too much) Lab Data 03/20/24 12:56 03/20/24 12:56 Labs: Lab Results 03/20/24 03/20/24 Range/Units 12:56 14:37 WBC 9.2 (4.8-10.8) X10*3/uL RBC 4.52 (4.20-5.50) X10*6/uL Hgb 14.0 (12.0-16.0) g/dl Hct 38.5 (37.0-47.0) % MCV 85.2 (80.0-98.0) fL MCH 31.0 (27.0-33.0) pg MCHC 36.4 H (31.0-35.0) g/dl RDW 12.7 (11.0-16.0) % Plt Count 342 (160-400) X10*3/uL MPV 7.8 L (9.4-12.3) fL Immature Gran % (Auto) 0.4 (0.0-0.4) % Neut % (Auto) 67.7 (45-73) % Lymph % (Auto) 23.3 (20-40) % [place] % (Auto) 7.3 (2-11) % Eos % (Auto) 0.8 (0-4) % Baso % (Auto) 0.5 (0-2) % Lymph # (Auto) 2.1 (1.2-4.9) X10*3/uL [place] # (Auto) 0.7 (0.1-1.2) X10*3/uL Eos # (Auto) 0.1 (0.0-0.4) X10*3/uL Baso # (Auto) 0.1 (0.0-0.2) X10*3/uL Abs Immat Gran (auto) 0.04 H (0.00-0.03) X10*3/uL Absolute Neuts (auto) 6.2 (2.0-8.3) x10*3/uL Absolute Nucleated RBC 0.000 (0.0-0.012) X10*3/uL Nucleated RBC % (auto) 0.0 (0.0-0.2) /100WBC Sodium 125 L (135-145) mmol/L Potassium 3.9 (3.3-5.1) mmol/L Chloride 94 L (96-108) mmol/L Carbon Dioxide 21 L (22-29) mmol/L Anion Gap 14 (12-20) BUN 9 (9-16) mg/dL Creatinine 0.77 (0.5-1.4) mg/dL Estim Creat Clear Calc 75.3 Estimated GFR > 60 Random Glucose 92 (60-115) mg/dL Calcium 9.6 (8.4-10.2) mg/dL Urine Color Yellow Urine Appearance Clear Urine pH 7.0 (5.0-9.0) Ur Specific Bromide <= 1.005 (1.005-1.025) Urine Protein Negative (Neg-Trace) mg/dL Urine Glucose (UA) Negative (Negative) mg/dL Urine Ketones Negative (Negative) mg/dL Urine Blood Negative (Negative) Urine Nitrite Negative (Negative) Ur Leukocyte Esterase Trace H (Negative) Urine RBC 0-2 (0-2) /HPF Urine WBC 0-5 (0-5) /HPF Ur Squamous Epith Cells 3-5 (0-2) /HPF Urine Bacteria None Seen (None Seen) Hyaline Casts 0-2 (0-2) /LPF Independent Interpretation I performed an independent interpretation of an: EKG (sinus 84, no st or twave changes) Tests considered The following testing was considered but not selected: CT of brain considered but patient ambulated well and is non focal Prescription Management I considered prescription management with: Antibiotic (no evidence of UTI) Chronic Conditions Patient?s care impacted by: Hypertension Discharge Plan Discharge Clinical Impression: Hyponatremia Patient Disposition: Home, Self-Care Instructions: Hyponatremia (ED) Additional Instructions: restrict your water intake and increase your salt Prescriptions: No Action bupropion HCl 300 mg tablet extended release 24 hr 300 mg PO QAM 90 Days Qty: 90 4RF (DME) xeroform 5x9 See Rx Instructions .Route .MEDSUPPLY Qty: 2 0RF Rx Instructions: As directed (DME) cloth tape 3 See Rx Instructions .Route .MEDSUPPLY Qty: 1 0RF Rx Instructions: As directed montelukast [Singulair] 10 mg tablet 10 mg PO QAM 90 Days Qty: 90 3RF omeprazole 20 mg capsule,delayed release(DR/EC) 20 mg PO QAM 90 Days Qty: 90 2RF fluoxetine 20 mg capsule 40 mg PO QAM 30 Days Qty: 60 2RF diclofenac sodium 1 % gel 4 g topical QID PRN (Reason: pain) 30 Days Qty: 100 2RF Rx Instructions: apply to single knee, ankle, foot; for foot includes sole/toes/top of foot telmisartan 80 mg tablet 80 mg PO QAM 90 Days Qty: 90 3RF fluticasone propion-salmeterol [Advair Diskus] 250-50 mcg/dose blister with device 1 inh inhalation Q12H Qty: 60 0RF diltiazem HCl [Tiadylt ER] 180 mg capsule,extended release 24 hr 180 mg PO QAM 90 Days Qty: 90 4RF buspirone 10 mg tablet 15 mg PO BID Qty: 90 1RF semaglutide (weight loss) 0.5 mg/0.5 mL pen injector 0.5 mg subcut QWEEK 28 Days Qty: 2 3RF cyclobenzaprine 10 mg tablet 10 mg PO TID Qty: 84 0RF lorazepam [Ativan] 1 mg tablet 1 mg PO DAILY PRN (Reason: anxiety) Qty: 15 0RF Rx Instructions: [facility] verified. Partial refill upon request. nystatin 100,000 unit/mL suspension 400,000 unit buccal QID 7 Days Qty: 473 0RF Rx Instructions: administer 1/2 of dose in each side of the mouth and swallow cyclosporine [Restasis] 0.05 % dropperette 1 drp ophthalmic (eye) Q12H Rx Instructions: both eyes omega 3-xmb-pyi-fish oil [Fish Oil] 300-1,000 mg capsule 1 cap PO QAM propranolol 60 mg capsule,extended release 24 hr 60 mg PO BEDTIME atorvastatin 40 mg tablet 40 mg PO BEDTIME 90 Days Qty: 90 3RF fluconazole 150 mg tablet 150 mg PO Q3D 0 Days Qty: 2 0RF Rx Instructions: may repeat second dose 72 hrs after first dose if symptoms persist albuterol sulfate 90 mcg/actuation HFA aerosol inhaler 2 puff inhalation Q6H PRN (Reason: Shortness Of Breath) 30 Days Qty: 8.5 4RF Wegovy 0.25 mg/0.5 mL pen injector subcut meloxicam 15 mg tablet 15 mg PO QAM magnesium gluconate [Mag-G] 27 mg magnesium (500 mg) tablet 27 mg PO BID Referrals: Amrik Mendoza MD [Primary Care Provider] - 5 days Print Language: Macedonian
--- NOTE | 2024-03-20 12:44 | ECG_ITS ---
Test Reason : WEAKNESS Blood Pressure : / mmHG Vent. Rate : 084 BPM Atrial Rate : 084 BPM P-R Int : 176 ms QRS Dur : 084 ms QT Int : 392 ms P-R-T Axes : 041 004 032 degrees QTc Int : 463 ms Normal sinus rhythm Normal EKG When compared with ECG of 08-NOV-2023 14:50, No significant change was found Referred By: Praveen Cabello Electronically Signed By:AILYN LEONG
[2024-03-20 13:02] LABS: MANUAL DIFF FLAG NO
[2024-03-20] MEDS: ondansetron HCL 4 MG/2 ML VIAL IVPUSH (13:03)
[2024-03-20 13:04] LABS: Basophils Absolute Auto 0.1 X10*3/uL (0.0-0.2); Basophils Percent Auto 0.5 % (0-2); Eosinophils Absolute Auto 0.1 X10*3/uL (0.0-0.4); Eosinophils Percent Auto 0.8 % (0-4); Hematocrit 38.5 % (37.0-47.0); Imm Gran Abs Auto 0.04 X10*3/uL (0.00-0.03); Imm Gran Pct Auto 0.4 % (0.0-0.4); Lymphocytes Absolute Auto 2.1 X10*3/uL (1.2-4.9); Lymphocytes Percent Auto 23.3 % (20-40); Mean Corpuscular HGB Conc 36.4 g/dl (31.0-35.0); Mean Corpuscular Volume 85.2 fL (80.0-98.0); Mean Platelet Volume 7.8 fL (9.4-12.3); Monocytes Absolute Auto 0.7 X10*3/uL (0.1-1.2); Monocytes Percent Auto 7.3 % (2-11); Neutrophils Absolute Auto 6.2 x10*3/uL (2.0-8.3); Neutrophils Percent Auto 67.7 % (45-73); Platelet Count 342 X10*3/uL (160-400); Red Blood Count 4.52 X10*6/uL (4.20-5.50); Red Cell Distribution Width 12.7 % (11.0-16.0); White Blood Count 9.2 X10*3/uL (4.8-10.8)
[2024-03-20] MEDS: 0.9 % Sodium Chloride 1,000 ML 500 ML IVCONT (13:12)
[2024-03-20 13:19] LABS: Anion Gap 14 (12-20); Blood Urea Nitrogen 9 mg/dL (9-16); Calcium 9.6 mg/dL (8.4-10.2); Carbon Dioxide 21 mmol/L (22-29); Chloride 94 mmol/L (96-108); Creatinine Clr Calc Pharmacy 75.3; Estimated Glomerular Filt Rate > 60; Glucose Random 92 mg/dL (60-115); Potassium 3.9 mmol/L (3.3-5.1); Sodium 125 mmol/L (135-145)
[2024-03-20 14:49] LABS: Appearance Urine Clear; Color Urine Yellow; Glucose Urine UA Negative (Negative); Leukocyte Esterase Urine Trace (Negative); Nitrite Urine Negative (Negative); Specific Gravity - Urine <= 1.005 (1.005-1.025); UMIC TRIGGER UACC YES; Urine Blood Negative (Negative); Urine Ketones Negative (Negative); Urine Protein Negative (Neg-Trace)
[2024-03-20 14:52] LABS: Bacteria Urine None Seen (None Seen); Hyaline Casts Urine 0-2 /LPF (0-2); RBC Urine 0-2 /HPF (0-2); WBC Urine 0-5 /HPF (0-5)
== END 2024-03-20 17:43 | disposition home or self-care (01) ==
PROVIDERS: Emergency Provider Emergency Medicine; PCP Family Medicine
DX: E87.1 Hypo-osmolality and hyponatremia (principal); R42 Dizziness and giddiness; R11.2 Nausea with vomiting, unspecified; R53.1 Weakness; F17.210 Nicotine dependence, cigarettes, uncomplicated; Z79.899 Other long term (current) drug therapy
CPT/HCPCS: 36415; 80048; 81001; 85025; 93005; 96361; 96374; 99284; J2405

== ENCOUNTER → 2024-03-20 12:44 | Outpatient (BNV) | payer OTHER, SELFPAY | PROVIDERS: Emergency Provider Emergency Medicine; PCP Family Medicine; Visit Provider Internal Medicine | DX: R53.1 Weakness (principal) | CPT/HCPCS: 93010 ==

== ENCOUNTER 2024-03-22 10:07 | Emergency (ER) | payer OTHER, SELFPAY ==
--- NOTE | ~2024-03-22 | CT_ITS ---
EXAMINATION: CT head/brain wo IV con CLINICAL INFORMATION: Reason for Exam dizziness COMPARISON: None. TECHNIQUE: Contiguous axial imaging was performed from the skull base to vertex without intravenous contrast. Sagittal and coronal reformatted images were obtained. This CT examination was performed using dose optimization techniques as appropriate, variously including the following: * Automated exposure control * Adjustment of mA and/or kV according to patient size (this includes techniques or standardized protocols for targeted exams where dose is matched to indication/reason for exam; i.e. extremities or head) Use of iterative reconstruction technique DLP: 592.2 mGy-cm FINDINGS: No acute osseous or soft tissue abnormality. The mastoid air cells and visualized portions of the paranasal sinuses are well aerated. Partially imaged plate and screw fixation of the left mandibular condylar fossa. The left mandibular condyle is not visualized though this region is partially imaged. Expanded, partially empty sella. There is no evidence of acute intracranial hemorrhage or territorial infarction. No abnormal mass effect or midline shift is seen. [place] to white matter differentiation is well preserved. No extra-axial fluid collections are identified. No hydrocephalus. CT/CT head/brain wo IV con IMPRESSION: 1. No acute intracranial abnormality. 2. Expanded, partially empty sella. 3. Partially imaged plate and screw fixation of the left mandibular condylar fossa. The left mandibular condyle is not visualized though this region is partially imaged.
[2024-03-22 10:23] VITALS: BP 193/99; PULSE 80; RESP 18; TEMP 36.8; O2SAT 96; BMI 36.5
--- NOTE | 2024-03-22 10:28 | ECG_ITS ---
Test Reason : DIZZINESS Blood Pressure : / mmHG Vent. Rate : 079 BPM Atrial Rate : 079 BPM P-R Int : 166 ms QRS Dur : 092 ms QT Int : 366 ms P-R-T Axes : 028 003 033 degrees QTc Int : 419 ms Normal sinus rhythm Normal ECG When compared with ECG of 20-MAR-2024 13:36, No significant change was found Referred By: Teresa Elias Electronically Signed By:AILYN LEONG
--- NOTE | 2024-03-22 10:41 | ED.WEAKNESS ---
HPI - Weakness General Chief complaint: Recheck/Abnormal Lab/Rx Stated complaint: low sodium Time Seen by Provider: 03/22/24 10:15 Source: patient and old records reviewed Mode of arrival: ambulatory Limitations: no limitations History of Present Illness ED Provider: LARRY WALTERS Narrative: 58 yo female with PMH of back pain, obesity, asthma, thrombocytosis, anxiety and depression on prozac, HLD, HTN on ARB not diuretic, GERD, back pain, arthritis was seen on 03/20 for low Na 125 - spec grav 1.005 told to decrease her water intake was drinking about 48 ounces a day and increase salt intake. Her Na has never been that low she still feels nauseated weak and dizzy. She reports drinking gatorade eating salty foods and decreasing water intake but still doesn't feel good. She denies recent GI losses. Complaint: generalized weakness Onset (ago): day(s) (4) Duration: constant Location: generalized Migration: none Severity: mild Relieving factors: rest Exacerbating factors: movement and exertion Context: other (low Na) Associated symptoms: loss of appetite and nausea/vomiting Related Data Home Medications ?Medication ?Instructions ?Recorded ?Confirmed cyclosporine 0.05 % eye drops in a 1 drp ophthalmic (eye) Q12H 07/03/23 03/12/24 dropperette (Restasis) omega 7-ovn-lqy-fish oil 300 1 cap PO QAM 07/03/23 03/12/24 mg-1,000 mg capsule (Fish Oil) meloxicam 15 mg tablet 15 mg PO QAM 07/27/23 03/12/24 propranolol 60 mg capsule,24 60 mg PO BEDTIME 08/28/23 03/12/24 hr,extended release magnesium gluconate 27 mg 27 mg PO BID 10/05/23 03/12/24 magnesium (500 mg) tablet (Mag-G) semaglutide (weight loss) 0.25 mg subcut 02/26/24 03/12/24 mg/0.5 mL subcutaneous pen injector (Bob) Previous Rx's ?Medication ?Instructions ?Recorded bupropion HCl 300 mg 24 hr tablet, 300 mg PO QAM 90 days #90 tabs 11/02/23 extended release cloth tape #1 ea 11/12/23 xeroform #2 ea 11/12/23 montelukast 10 mg tablet 10 mg PO QAM 90 days #90 tabs 11/14/23 (Singulair) omeprazole 20 mg capsule,delayed 20 mg PO QAM 90 days #90 caps 11/19/23 release fluoxetine 20 mg capsule 40 mg (2 x 20 mg) PO QAM 30 days 12/26/23 #60 caps diclofenac sodium 1 % topical gel 4 g topical QID PRN pain 30 days 01/28/24 #100 grams albuterol sulfate 90 mcg/actuation 2 puff inhalation Q6H PRN 01/29/24 aerosol inhaler Shortness Of Breath 30 days #8.5 grams telmisartan 80 mg tablet 80 mg PO QAM 90 days #90 tabs 01/29/24 atorvastatin 40 mg tablet 40 mg PO BEDTIME 90 days #90 tabs 01/30/24 fluticasone 250 mcg-salmeterol 50 1 inh inhalation Q12H #60 ea 02/12/24 mcg/dose blistr powdr for inhalation (Advair Diskus) diltiazem HCl 180 mg capsule,24 180 mg PO QAM 90 days #90 caps 02/19/24 hr,extended release (Tiadylt ER) buspirone 10 mg tablet 15 mg (1.5 x 10 mg) PO BID #90 tabs 02/21/24 semaglutide (weight loss) 0.5 0.5 mg (0.5 mL) subcut QWEEK 28 02/22/24 mg/0.5 mL subcutaneous pen injector days #2 mL fluconazole 150 mg tablet 150 mg PO Q3D 2 doses #2 tabs 03/14/24 cyclobenzaprine 10 mg tablet 10 mg PO TID #84 tabs 03/18/24 lorazepam 1 mg tablet (Ativan) 1 mg PO DAILY PRN anxiety #15 tabs 03/18/24 nystatin 100,000 unit/mL oral 400,000 unit (4 mL) buccal QID 7 03/19/24 suspension days #473 mL sodium chloride 1,000 mg soluble 1,000 mg PO BID 3 days #6 tabs 03/22/24 tablet Allergies Allergy/AdvReac Type Severity Reaction Status Date / Time Seasonal Allergies Allergy Severe Itchy Eyes Verified 03/22/24 10:24 lisinopril AdvReac Severe Cough Verified 03/22/24 10:24 pregabalin [From Lyrica] AdvReac Severe Shortness Verified 03/22/24 10:24 of Breath celecoxib [From Celebrex] AdvReac Intermediate Hypertensio Verified 03/22/24 10:24 n varenicline [From Chantix] AdvReac Intermediate Depression Verified 03/22/24 10:24 Review of Systems Review of Systems: Constitutional : No Fever, No Chills, No Fatigue ENT/Mouth : No sore throat, No Rhinorrhea Eyes: No Eye Pain, No Swelling, No Redness Cardiovascular : No Chest Pain, No SOB, No Dyspnea on Exertion Respiratory : No Cough, No Sputum Gastrointestinal : pos Nausea, No Vomiting, No Diarrhea, No abdominal Pain Genitourinary : No Dysuria, No Urinary Frequency, No Hematuria, Musculoskeletal : No joint pain, No Myalgias, No Joint Swelling Skin : No Skin Lesions, No rash Neuro : pos Weakness, No Numbness, pos Dizziness, no Headache Psych : No Anxiety/Panic, No Depression All other systems reviewed and are negative PMFSH Past Medical History Attestation statement: The following information was validated with the patient. Source: old records reviewed Medical History Polyarthralgia Raynauds phenomenon DDD (degenerative disc disease), cervical Mediastinal mass Asthma Chronic pain syndrome Costochondritis Thrombocytosis TMJ (temporomandibular joint syndrome) Numbness and tingling of left leg Tremors of nervous system Lyme disease Hypersomnia Snoring Hyperlipidemia HTN (hypertension) GERD (gastroesophageal reflux disease) Generalized headaches Back pain Arthritis Surgical History Mediastinal mass (11/08/23) History of mandibular surgery S/P cervical spinal fusion Hx of cervical spine surgery Hx of endoscopy Hx of colonoscopy History of salpingo-oophorectomy History of laparoscopy Hx of arthroscopy Hx of tubal ligation Hx of hysterectomy, total Hx of shoulder surgery Hx of knee surgery Family History Family History Father Heart disease Cancer Prostate cancer Mother Dementia Congestive heart failure Social History Social History Housing: House Are you a primary pharmacy customer care specialist to a significant other at home: No Do you presently have visiting nurse or other home services: No Alcohol intake: current Patient Tobacco Use Status: Current everyday Tobacco user Tobacco use type: Cigarette Cigarettes Per Day: 2 Years Smoked: 26 Smoked in Last 30 Days: Yes e-Cigarette/Vaping Use: Never Used Second Hand Smoke Exposure: No Use of substances other than those prescribed or required for medical reasons: No Advance Directives: No Do you have a plan to hurt others: No Plan Patient : No service: No Current occupational status: disabled Current occupational exposures/hazards: No Cognitive needs: No Hearing needs: No Vision needs: No Physical Exam Vital Signs: Vital Signs: Last Vital Signs Temp 97.8 F 03/22/24 14:35 Pulse 77 03/22/24 14:35 Resp 16 03/22/24 14:35 BP 143/81 H 03/22/24 14:35 Pulse Ox 99 03/22/24 14:35 O2 Del Method Room Air 03/22/24 14:35 BMI result Body Mass Index 36.5 Appearance: Alert. Oriented X3. No acute distress. Eyes: Pupils equal, round and reactive to light. ENT: Pharynx normal. Neck: Normal inspection. Neck supple. CVS: Normal heart rate and rhythm. Pulses normal. Respiratory: No respiratory distress. Breath sounds normal. Abdomen: Soft and nontender. Skin: Skin warm and dry. Normal skin color. Normal skin turgor. Extremities: No lower extremity edema. No calf ttp Neuro: Oriented X 3. No motor deficit. No sensory deficit. Course Course Course Narrative: PVR less than 100 Reevaluation(s) Reevaluation #1: persistent dizziness NA [address] head for mass Reevaluation #2: Na improved to 131 with dietary changes - will order sodium tab low osm and low Na suspect too much water intake and possible combination of fluoxetine has chronic dry mouth Medications Administered Discontinued Medications Generic Name Dose Route Start Last Admin Trade Name Freq PRN Reason Stop Dose Admin Ondansetron HCl 4 mg 03/22/24 10:28 03/22/24 11:36 Ondansetron Hcl 4 Mg/2 Ml Vial IVPUSH 03/22/24 10:29 4 mg ONCE ONE Administration Sodium Chloride 1 gm 03/22/24 13:32 03/22/24 14:24 Sodium Chloride Tab 1 Gm Tablet PO 03/22/24 13:33 1 gm ONCE ONE Administration Medical Decision Making Medical Decision Making [facility] Narrative: 58 yo female with PMH of back pain, obesity, asthma, thrombocytosis, anxiety and depression on prozac, HLD, HTN on ARB not diuretic, GERD, back pain, arthritis was seen on 03/20 for low Na 125 returns today still not feeling great despite following dietary guidelines and restricting fluids though was only drinking 6 to 8 - 8 ounces of water a day to no more than 64 ounces a day. She denies GI loss, new medications. She doesn't feel great at this time labs, urine study, PVR has no abdominal pain flank pain just feels she is not emptying, IV zofran, possible Na tabs. dizziness x 1 week no acute stroke and symptoms x 1 week at this time needs further outpatient work up for dizziness Differential Diagnosis Differential Diagnoses: The differential diagnosis associated with the presentation includes med reaction, low Na Admission/Observation Consideration of admission/observation: Escalation of care including admission/observation considered Na 131, dizziness for 1 week needs outpatient work up at this time able to walk to and from bathroom had long discussion about my concerns regarding the empty sella has appointment with PA on Sunday salt tabs for 3 days Lab Data [facility] Lab Attestation statement: I reviewed the patient's lab results. 03/22/24 11:27 03/22/24 11:27 Labs: Lab Results 03/22/24 03/22/24 Range/Units 11:27 11:40 WBC 8.3 (4.8-10.8) X10*3/uL RBC 4.14 L (4.20-5.50) X10*6/uL Hgb 12.9 (12.0-16.0) g/dl Hct 35.7 L (37.0-47.0) % MCV 86.2 (80.0-98.0) fL MCH 31.2 (27.0-33.0) pg MCHC 36.1 H (31.0-35.0) g/dl RDW 12.7 (11.0-16.0) % Plt Count 310 (160-400) X10*3/uL MPV 7.9 L (9.4-12.3) fL Immature Gran % (Auto) 0.4 (0.0-0.4) % Neut % (Auto) 70.4 (45-73) % Lymph % (Auto) 21.5 (20-40) % [place] % (Auto) 5.9 (2-11) % Eos % (Auto) 1.3 (0-4) % Baso % (Auto) 0.5 (0-2) % Lymph # (Auto) 1.8 (1.2-4.9) X10*3/uL [place] # (Auto) 0.5 (0.1-1.2) X10*3/uL Eos # (Auto) 0.1 (0.0-0.4) X10*3/uL Baso # (Auto) 0.0 (0.0-0.2) X10*3/uL Abs Immat Gran (auto) 0.03 (0.00-0.03) X10*3/uL Absolute Neuts (auto) 5.8 (2.0-8.3) x10*3/uL Absolute Nucleated RBC 0.000 (0.0-0.012) X10*3/uL Nucleated RBC % (auto) 0.0 (0.0-0.2) /100WBC Sodium 131 L (135-145) mmol/L Potassium 4.0 (3.3-5.1) mmol/L Chloride 102 (96-108) mmol/L Carbon Dioxide 21 L (22-29) mmol/L Anion Gap 12 (12-20) BUN 9 (9-16) mg/dL Creatinine 0.62 (0.5-1.4) mg/dL Estim Creat Clear Calc 93.2 Estimated GFR > 60 Random Glucose 87 (60-115) mg/dL Osmolality 269 L (281-305) mosm/kg Calcium 9.4 (8.4-10.2) mg/dL Magnesium 1.6 (1.6-2.6) mg/dL Total Bilirubin 0.3 (0.0-1.0) mg/dL Direct Bilirubin 0.1 (0.0-0.5) mg/dL AST 16 (5-31) U/L ALT 30 (0-31) U/L Alkaline Phosphatase 89 (39-117) U/L Total Protein 6.3 L (6.5-8.0) g/dL Albumin 3.6 (3.5-5.0) g/dL Urine Color Yellow Urine Appearance Clear Urine pH 6.5 (5.0-9.0) Ur Specific [place] 1.010 (1.005-1.025) Urine Protein Negative (Neg-Trace) mg/dL Urine Glucose (UA) Negative (Negative) mg/dL Urine Ketones Negative (Negative) mg/dL Urine Blood Negative (Negative) Urine Nitrite Negative (Negative) Ur Leukocyte Esterase Trace H (Negative) Urine RBC 0-2 (0-2) /HPF Urine WBC 0-5 (0-5) /HPF Ur Squamous Epith Cells 3-5 (0-2) /HPF Urine Bacteria 2+ (None Seen) Hyaline Casts 0-2 (0-2) /LPF Ur Random Sodium 62.0 mmol/L Urine Creatinine 18.94 mg/dL Independent Interpretation I performed an independent interpretation of an: EKG and CT Scan (no stroke or mass) Interpretation: Rate: 79 Rhythm: NSR [place]: left Normal P waves. Normal LAXMI. Normal QRS complex. ST T wave : inverted t waves V1 and V2, no MARCELINA qTC: 419 prior studies: no acute ischemia The study has been interpreted contemporaneously by me. . Radiology Impression Discussion of test interpretation with radiology: I have reviewed the radiologist's reading. External Record Review External record reviewed: Inpatient record Prescription Management I considered prescription management with: Other Discharge Plan Discharge Clinical Impression: Dizziness, Hypo-osmolality and hyponatremia Patient Disposition: Home, Self-Care Instructions: Hyponatremia (ED), Dizziness (ED) Additional Instructions: your sodium level is improving but I have some concerns that this is not just related to your water intake it could be related to your medications such as prozac but also you had partially empty sella on CT scan which could be panhypopituitarism this could affect your thyroid and adrenal glands. On Sunday at your appointment you need further testing such as TSH, FSH, prolactin and cortisol. We have no prior CT scans so MRI would be recommended to look at the area more closely. I would hold your water to 40 ounces a day. you can return at any time for worsening symptoms. Prescriptions: New sodium chloride 1,000 mg tablet,soluble 1,000 mg PO BID 3 Days Qty: 6 0RF No Action bupropion HCl 300 mg tablet extended release 24 hr 300 mg PO QAM 90 Days Qty: 90 4RF (DME) xeroform 5x9 See Rx Instructions .Route .MEDSUPPLY Qty: 2 0RF Rx Instructions: As directed (DME) cloth tape 3 See Rx Instructions .Route .MEDSUPPLY Qty: 1 0RF Rx Instructions: As directed montelukast [Singulair] 10 mg tablet 10 mg PO QAM 90 Days Qty: 90 3RF omeprazole 20 mg capsule,delayed release(DR/EC) 20 mg PO QAM 90 Days Qty: 90 2RF fluoxetine 20 mg capsule 40 mg PO QAM 30 Days Qty: 60 2RF diclofenac sodium 1 % gel 4 g topical QID PRN (Reason: pain) 30 Days Qty: 100 2RF Rx Instructions: apply to single knee, ankle, foot; for foot includes sole/toes/top of foot telmisartan 80 mg tablet 80 mg PO QAM 90 Days Qty: 90 3RF fluticasone propion-salmeterol [Advair Diskus] 250-50 mcg/dose blister with device 1 inh inhalation Q12H Qty: 60 0RF diltiazem HCl [Tiadylt ER] 180 mg capsule,extended release 24 hr 180 mg PO QAM 90 Days Qty: 90 4RF buspirone 10 mg tablet 15 mg PO BID Qty: 90 1RF semaglutide (weight loss) 0.5 mg/0.5 mL pen injector 0.5 mg subcut QWEEK 28 Days Qty: 2 3RF cyclobenzaprine 10 mg tablet 10 mg PO TID Qty: 84 0RF lorazepam [Ativan] 1 mg tablet 1 mg PO DAILY PRN (Reason: anxiety) Qty: 15 0RF Rx Instructions: [facility] verified. Partial refill upon request. nystatin 100,000 unit/mL suspension 400,000 unit buccal QID 7 Days Qty: 473 0RF Rx Instructions: administer 1/2 of dose in each side of the mouth and swallow cyclosporine [Restasis] 0.05 % dropperette 1 drp ophthalmic (eye) Q12H Rx Instructions: both eyes omega 6-wuc-jnj-fish oil [Fish Oil] 300-1,000 mg capsule 1 cap PO QAM propranolol 60 mg capsule,extended release 24 hr 60 mg PO BEDTIME atorvastatin 40 mg tablet 40 mg PO BEDTIME 90 Days Qty: 90 3RF fluconazole 150 mg tablet 150 mg PO Q3D 0 Days Qty: 2 0RF Rx Instructions: may repeat second dose 72 hrs after first dose if symptoms persist albuterol sulfate 90 mcg/actuation HFA aerosol inhaler 2 puff inhalation Q6H PRN (Reason: Shortness Of Breath) 30 Days Qty: 8.5 4RF [place] 0.25 mg/0.5 mL pen injector subcut meloxicam 15 mg tablet 15 mg PO QAM magnesium gluconate [Mag-G] 27 mg magnesium (500 mg) tablet 27 mg PO BID Print Language: Hungarian
[2024-03-22 11:31] LABS: MANUAL DIFF FLAG NO
[2024-03-22 11:32] LABS: Basophils Percent Auto 0.5 % (0-2); Eosinophils Absolute Auto 0.1 X10*3/uL (0.0-0.4); Eosinophils Percent Auto 1.3 % (0-4); Hematocrit 35.7 % (37.0-47.0); Hemoglobin 12.9 g/dl (12.0-16.0); Imm Gran Abs Auto 0.03 X10*3/uL (0.00-0.03); Imm Gran Pct Auto 0.4 % (0.0-0.4); Lymphocytes Absolute Auto 1.8 X10*3/uL (1.2-4.9); Lymphocytes Percent Auto 21.5 % (20-40); Mean Corpuscular HGB Conc 36.1 g/dl (31.0-35.0); Mean Corpuscular Hemoglobin 31.2 pg (27.0-33.0); Mean Corpuscular Volume 86.2 fL (80.0-98.0); Mean Platelet Volume 7.9 fL (9.4-12.3); Monocytes Absolute Auto 0.5 X10*3/uL (0.1-1.2); Monocytes Percent Auto 5.9 % (2-11); Neutrophils Absolute Auto 5.8 x10*3/uL (2.0-8.3); Neutrophils Percent Auto 70.4 % (45-73); Platelet Count 310 X10*3/uL (160-400); Red Blood Count 4.14 X10*6/uL (4.20-5.50); Red Cell Distribution Width 12.7 % (11.0-16.0); White Blood Count 8.3 X10*3/uL (4.8-10.8)
[2024-03-22] MEDS: ondansetron HCL 4 MG/2 ML VIAL IVPUSH (11:36)
--- NOTE | 2024-03-22 11:46 | PC.NURSE ---
pt a&ox3, difficult stick, pt had US IV inserted by US trained nurse-Prasanna- he was unable to draw labs off the iv site, tech was able to get with a butterfly from hand. ekg performed, urine obtained, bladder scan performed, call peep within reach, will continue to monitor
[2024-03-22 11:56] LABS: Alanine Aminotransferase 30 U/L (0-31); Albumin Level 3.6 g/dL (3.5-5.0); Alkaline Phosphatase 89 U/L (39-117); Anion Gap 12 (12-20); Aspartate Amino Transferase 16 U/L (5-31); Bilirubin Direct 0.1 mg/dL (0.0-0.5); Bilirubin Total 0.3 mg/dL (0.0-1.0); Blood Urea Nitrogen 9 mg/dL (9-16); Calcium 9.4 mg/dL (8.4-10.2); Carbon Dioxide 21 mmol/L (22-29); Chloride 102 mmol/L (96-108); Creatinine Clr Calc Pharmacy 93.2; Estimated Glomerular Filt Rate > 60; Glucose Random 87 mg/dL (60-115); Magnesium 1.6 mg/dL (1.6-2.6); Sodium 131 mmol/L (135-145); Total Protein 6.3 g/dL (6.5-8.0)
[2024-03-22 11:58] LABS: Creatinine Urine 18.94 mg/dL
[2024-03-22 12:01] LABS: Appearance Urine Clear; Color Urine Yellow; Glucose Urine UA Negative (Negative); Leukocyte Esterase Urine Trace (Negative); Nitrite Urine Negative (Negative); PH 6.5 (5.0-9.0); UMIC TRIGGER UACC YES; Urine Blood Negative (Negative); Urine Ketones Negative (Negative); Urine Protein Negative (Neg-Trace)
[2024-03-22 12:03] LABS: Osmolality, Serum 269 mosm/kg (281-305)
[2024-03-22 12:13] LABS: Bacteria Urine 2+ (None Seen); Hyaline Casts Urine 0-2 /LPF (0-2); RBC Urine 0-2 /HPF (0-2); WBC Urine 0-5 /HPF (0-5)
[2024-03-22 12:26] VITALS: BP 156/87; PULSE 75; RESP 18; TEMP 36.7; O2SAT 98
--- NOTE | 2024-03-22 14:16 | PC.NURSE ---
called pharmacy for missing medication
[2024-03-22] MEDS: Sodium Chloride Tab 1 GM TABLET PO (14:24)
[2024-03-22 14:35] VITALS: BP 143/81; PULSE 77; RESP 16; TEMP 36.6; O2SAT 99
[2024-03-22 16:10] VITALS: BP 164/85; PULSE 77; RESP 16; TEMP 37; O2SAT 96
[2024-03-22 16:22] VITALS: BP 164/85; PULSE 77; RESP 16; TEMP 37; O2SAT 96
== END 2024-03-22 16:23 | disposition home or self-care (01) ==
PROVIDERS: Emergency Provider Emergency Medicine; PCP Family Medicine
DX: R42 Dizziness and giddiness (principal); E87.1 Hypo-osmolality and hyponatremia; R53.1 Weakness; I10 Essential (primary) hypertension; E78.5 Hyperlipidemia, unspecified; J45.909 Unspecified asthma, uncomplicated; F17.210 Nicotine dependence, cigarettes, uncomplicated
CPT/HCPCS: 36415; 51798; 70450; 80048; 80076; 81001; 81003; 82570; 83735; 83930; 84300; 85025; 93005; 96374; 99284; 99285; J2405

== ENCOUNTER → 2024-03-22 10:28 | Outpatient (BNV) | payer OTHER, SELFPAY | PROVIDERS: Emergency Provider Emergency Medicine; PCP Family Medicine; Visit Provider Internal Medicine | DX: R42 Dizziness and giddiness (principal) | CPT/HCPCS: 93010 ==

== ENCOUNTER 2024-03-24 09:54 | Outpatient (AMB) | payer OTHER, SELFPAY ==
--- NOTE | 2024-03-24 10:01 | A.OFFPC_ITS ---
Vital Signs 03/24/24 10:02 03/24/24 10:15 03/24/24 10:50 Height 5 ft Weight 187 lb BMI 36.5 BP 180/106 H 180/104 H 174/99 H Blood Pressure Location Rt brachial Lt brachial Rt brachial Position Sitting Sitting Respiration 13 Pulse 77 Pulse Source Pulse Oximeter Pulse Oximetry (%) 97 Oxygen Delivery Method Room Air Intake Visit Reasons: Low Sodium Intake Note: [place] [facility] [place] past week. Patient reports she has notes from the ER. Certified Personal Finance Counselor Required: No Accompanied by: Significant Other Allergies Seasonal Allergies Allergy (Severe, Verified 03/24/24 10:06) Itchy Eyes lisinopril Adverse Reaction (Severe, Verified 03/24/24 10:06) Cough pregabalin [From Lyrica] Adverse Reaction (Severe, Verified 03/24/24 10:06) Shortness of Breath celecoxib [From Celebrex] Adverse Reaction (Intermediate, Verified 03/24/24 10:06) Hypertension varenicline [From Chantix] Adverse Reaction (Intermediate, Verified 03/24/24 10:06) Depression Tobacco use date assessed: 01/30/24 Dental Screening Dental Screen Date: 01/30/24 HPI HPI Comments History of Present Illness Details This is a 58-year-old female with a past medical history of chronic pain, asthma, thrombocytosis, hypertension, hyperlipidemia, tremor, GERD and headaches presenting for ER follow up. She is accompanied by her . The patient presented for a visit with me on 03/20/2024. She almost fainted in the temporary receptionist area. She reported nausea, weakness, fatigue and dizziness. She had blood work done the day before. Her sodium level was 125. She was transferred to the emergency department by ambulance. Her blood pressure at the ER was 187/116 initially. It remained high but improved. Sodium rechecked there was 125. She says it was ?clear they just wanted to get rid of me. ? She had an EKG that was nonischemic. Patient says they gave her an IV and told her to stop drinking so much water. She returned to the emergency department on 03/22/2024 because she still felt very unwell. She had another EKG that showed no acute ischemic changes. She had a head CT which showed a partially empty sella. She had additional labs, and her sodium was 131. Osmolality low at 269. She was given salt tabs which she is taking. She was instructed to restrict water intake to 40 oz a day. She also reported to the ED provider she was having difficulty urinating for the past 6 months. Patient says she has to use a lot of effort to ?push urine out. ? She states they did an ultrasound at the ER that did not show anything wrong with her kidneys. Patient had urinalysis done at ED which showed trace leuks. No hematuria. Patient says nausea resolved. She still feels weak and tired. Patient still says she has muscle tremors, but this is chronic, and she is on a beta-valerie for this. Patient says she has been crying because she does not feel well. She is sleeping a lot. She is resting. Blood pressure initially 180/104. Decreased to 174/79 when I rechecked. Patient says the same thing happened at the ER. No headache, chest pain, shortness of breath, numbness today. In addition to her beta-valerie she also takes telmisartan and diltiazem. Patient is on fluoxetine. She has taken it for the past 20 years. Patient says doses actually been tapered down, and she is only taking 10 mg now. ROS: Constitutional: No unexplained weight loss, fever, chills. Eyes: No vision changes Respiratory: No shortness of breath Cardiovascular: No chest pain Gastrointestinal: No anorexia, nausea, vomiting or diarrhea. No abdominal pain Genitourinary: No dysuria, hematuria, urinary frequency. Neurologic: No seizures, headache, syncope Skin: No rash or itching. Endocrine: No cold or heat intolerance. No polyuria or polydipsia. Physical exam: Constitutional: Alert, in no distress. Head: Normocephalic. Eyes: Pupils are equal, round and reactive to light. Neck: No lymphadenopathy, no palpable masses or thyroid enlargement. Respiratory: Clear to auscultation. Cardiovascular: S1 S2 regular. No murmurs. Neurologic: Handgrip strength 5/5 with tremoring of upper extremities noted, moves all extremities spontaneously, clear speech, no facial droop Extremities: Warm and well perfused. [facility] Medical History (Updated 03/24/24 @ 13:48 by JANET Tidwell) Difficulty urinating Empty sella turcica Polyarthralgia Raynauds phenomenon DDD (degenerative disc disease), cervical Mediastinal mass Asthma Chronic pain syndrome Costochondritis Thrombocytosis TMJ (temporomandibular joint syndrome) Numbness and tingling of left leg Tremors of nervous system Lyme disease Hypersomnia Snoring Hyperlipidemia HTN (hypertension) GERD (gastroesophageal reflux disease) Generalized headaches Back pain Arthritis Surgical History Mediastinal mass (11/08/23) History of mandibular surgery S/P cervical spinal fusion Hx of cervical spine surgery Hx of endoscopy Hx of colonoscopy History of salpingo-oophorectomy History of laparoscopy Hx of arthroscopy Hx of tubal ligation Hx of hysterectomy, total Hx of shoulder surgery Hx of knee surgery Family History Father Heart disease Cancer Prostate cancer Mother Dementia Congestive heart failure Social History Housing: House Are you a primary career education teacher to a significant other at home: No Do you presently have visiting nurse or other home services: No Alcohol intake: current Patient Tobacco Use Status: Tobacco use Unknown Tobacco use type: Cigarette Cigarettes Per Day: 2 Years Smoked: 26 e-Cigarette/Vaping Use: Never Used Second Hand Smoke Exposure: No service: No Current occupational status: disabled Current occupational exposures/hazards: No Cognitive needs: No Hearing needs: No Vision needs: No Questionnaire Thrive Questionnaire Date Thrive assessed: 01/30/24 RAFAEL-7 AMB Questionnaire RAFAEL-7 Date RAFAEL - 7 assessed: 10/04/22 Source: Developed by Drs. Celso Blake, Sarah Abreu, Shravan Dominique and colleagues, with an educational allan from [employer]. Physical exam (Primary Care) Vital Signs: Last Vital Signs Pulse 77 03/24/24 10:02 Resp 13 03/24/24 10:02 BP 180/104 H 03/24/24 10:15 Pulse Ox 97 03/24/24 10:02 Oxygen Delivery Method Room Air 03/24/24 10:02 BMI result Body Mass Index 36.5 Tobacco/Smoking Status: Tobacco use Status Tobacco use date assessed 01/30/24 03/24/24 10:02 Patient Tobacco Use Status Tobacco use Unknown 03/24/24 10:08 Tobacco use type Cigarette 03/24/24 10:02 e-Cigarette/Vaping Use Never Used 03/24/24 10:02 Thrive Assessment: Date of Thrive Assessment Date Thrive assessed 01/30/24 03/24/24 10:02 Assessment and Plan Assessment & Plan (1) Hyponatremia: Code(s): E87.1 - Hypo-osmolality and hyponatremia (2) Empty sella turcica: Code(s): E23.6 - Other disorders of pituitary gland (3) HTN (hypertension): Code(s): I10 - Essential (primary) hypertension Qualifiers: Hypertension type: primary hypertension Qualified Code(s): I10 - Essential (primary) hypertension (4) Weakness: Code(s): R53.1 - Weakness (5) Difficulty urinating: Code(s): R39.198 - Other difficulties with micturition Plan Hyponatremia may be due to previously high water intake or possibly diabetes insipidus. She is on fluoxetine, but she has been on it for 20 years. Sodium level was normal in December. The dose of this was recently tapered down so I do not think this is the cause. Reviewed CT results with patient. MRI with and without contrast of the brain ordered for further evaluation. Referred urgently to Dr. Martin, endocrinology. Check TSH, FSH, prolactin, cortisol, repeat sodium. Continue fluid restriction to 40 oz per day. Continue sodium tabs. Plan reviewed with Dr. Mendoza. He will see the patient in a few weeks for follow up. Blood pressure elevated at appointment today. She was emotionally charged. It improved a little. She has a cuff at home. We will call her this afternoon for her to report home readings. Continue antihypertensive regimen for now. Warning signs warranting re-evaluation at ED reviewed with patient. Referred to urogynecology. She verbalizes understanding and accepts this treatment plan. Orders: Orders Follicle Stimulating Hormone Today E23.6 - Other disorders of pituitary gland, I10 - Essential (primary) hypertension, R53.1 - Weakness, Z00.00 - Encounter for general adult medical examination without abnormal findings Sodium Today E23.6 - Other disorders of pituitary gland, I10 - Essential (primary) hypertension, R53.1 - Weakness, Z00.00 - Encounter for general adult medical examination without abnormal findings TSH reflex Free T4 Today E23.6 - Other disorders of pituitary gland, E66.9 - Obesity, unspecified, I10 - Essential (primary) hypertension, R53.1 - Weakness, Z00.00 - Encounter for general adult medical examination without abnormal findings Prolactin Today E23.6 - Other disorders of pituitary gland, I10 - Essential (primary) hypertension, R53.1 - Weakness, Z00.00 - Encounter for general adult medical examination without abnormal findings Cortisol Random Today E23.6 - Other disorders of pituitary gland, I10 - Essential (primary) hypertension, R53.1 - Weakness, Z00.00 - Encounter for general adult medical examination without abnormal findings MR head/brain wo/w con Today E23.6 - Other disorders of pituitary gland, E87.1 - Hypo-osmolality and hyponatremia, I10 - Essential (primary) hypertension, R53.1 - Weakness Referrals Urogynecology Referral R39.198 - Other difficulties with micturition Endocrinology Referral E23.6 - Other disorders of pituitary gland, E87.1 - Hypo-osmolality and hyponatremia Coding Level of Care Code Est Pt Level 5 (24530) Complex EM visit Add On G2211 Diagnoses Hyponatremia E87.1 Empty sella turcica E23.6 Primary hypertension I10 Hypertension type: primary hypertension Weakness R53.1 Difficulty urinating R39.198 Time Spent (min) 45 Comment reviewing and updating the chart, seeing the patient, coordinating treatment
[2024-03-24 10:02] VITALS: BP 180/106; PULSE 77; RESP 13; O2SAT 97; BMI 36.5
[2024-03-24 10:15] VITALS: BP 180/104
[2024-03-24 10:50] VITALS: BP 174/99
== END 2024-03-24 12:04 | disposition home or self-care (01) ==
PROVIDERS: PCP Family Medicine; Visit Provider Physician Assistant Medical
DX: E87.1 Hypo-osmolality and hyponatremia (principal); E23.6 Other disorders of pituitary gland; I10 Essential (primary) hypertension; R53.1 Weakness; R39.198 Other difficulties with micturition
CPT/HCPCS: 99215

== ENCOUNTER 2024-03-24 11:12 | Outpatient (REF) | payer OTHER, SELFPAY ==
[2024-03-24 14:50] LABS: Sodium 130 mmol/L (135-145)
[2024-03-24 15:05] LABS: TSH reflex Free T4 0.49 uIU/mL (0.32-4.0)
[2024-03-24 15:13] LABS: Cortisol Random 4.4 ug/dL
[2024-03-25 09:03] LABS: Follicle Stimulating Hormone 68.4 mIU/mL; Prolactin 6.7 ng/mL
== END 2024-03-24 11:13 | disposition home or self-care (01) ==
LOC: HO.WFDLDS 11:12
PROVIDERS: Visit Provider Physician Assistant Medical
DX: Z00.00 Encounter for general adult medical examination without abnormal findings (principal); E23.6 Other disorders of pituitary gland; I10 Essential (primary) hypertension; R53.1 Weakness
CPT/HCPCS: 36415; 82533; 83001; 84146; 84295; 84443

== ENCOUNTER 2024-03-31 14:01 | Outpatient (REF) | payer OTHER, SELFPAY ==
[2024-03-31 16:26] LABS: Free T4 (Free Thyroxine) 1.14 ng/dL (0.71-1.85); Thyroid Stimulating Hormone 0.57 uIU/mL (0.32-4.0)
[2024-04-01 14:28] LABS: Immunoglobulin E 92 kU/L (<OR=114)
== END 2024-03-31 14:02 | disposition home or self-care (01) ==
LOC: HO.LAB 14:01
PROVIDERS: Absent Provider Nurse Practitioner Family; PCP Family Medicine; Visit Provider Internal Medicine Endocrinology, Diabetes & Metabolism
DX: E23.6 Other disorders of pituitary gland (principal); Z91.09 Other allergy status, other than to drugs and biological substances
CPT/HCPCS: 36415; 82785; 84439; 84443

== ENCOUNTER 2024-03-31 14:01 | Outpatient (AMB) | payer OTHER, SELFPAY ==
--- NOTE | 2024-03-31 14:03 | MHC.OFFVIS ---
Vital Signs 03/31/24 14:04 Height 5 ft Weight 187 lb 13.341 oz BMI 36.7 BP 128/82 Blood Pressure Location Lt brachial Position Sitting Pulse 90 Pulse Source Pulse Oximeter Intake Visit Reasons: pituitary gland,Hypo-osmolality & hyponatremia Intake Note: Patient present today for Pituitary gland, Hypo-osmolality and hyponatremia follow up visit. City Planner Required: No Accompanied by: Self / Same As Patient Allergies Seasonal Allergies Allergy (Severe, Verified 03/31/24 14:11) Itchy Eyes lisinopril Adverse Reaction (Severe, Verified 03/31/24 14:11) Cough pregabalin [From Lyrica] Adverse Reaction (Severe, Verified 03/31/24 14:11) Shortness of Breath celecoxib [From Celebrex] Adverse Reaction (Intermediate, Verified 03/31/24 14:11) Hypertension varenicline [From Chantix] Adverse Reaction (Intermediate, Verified 03/31/24 14:11) Depression Medication List - Last Reconciled 03/31/24 by Celso Martin MD albuterol sulfate 90 mcg/actuation 2 puffs inhalation Q6H PRN 30 days atorvastatin 40 mg PO BEDTIME 90 days bupropion HCl XL 300 mg PO QAM 90 days buspirone 15 mg (1.5 x 10 mg) PO BID [cloth tape As directed] cyclobenzaprine 10 mg PO TID cyclosporine 0.05% (Restasis) 1 drp ophthalmic (eye) Q12H diclofenac sodium 1% 4 grams topical QID PRN 30 days diltiazem HCl ER 240 mg PO DAILY fluconazole 150 mg PO Q3D 2 doses fluoxetine 40 mg (2 x 20 mg) PO QAM 30 days fluticasone propion-salmeterol 250-50 mcg/dose (Advair Diskus) 1 inh inhalation Q12H lorazepam (Ativan) 1 mg PO DAILY PRN magnesium gluconate (Mag-G) 27 mg PO BID meloxicam 15 mg PO QAM montelukast (Singulair) 10 mg PO QAM 90 days nystatin 400,000 units (4 mL) buccal QID 7 days omega 5-pgf-clq-fish oil 300-1,000 mg (Fish Oil) 1 cap PO QAM omeprazole 20 mg PO QAM 90 days propranolol ER 60 mg PO BEDTIME semaglutide (weight loss) 0.5 mg (0.5 mL) subcut QWEEK 28 days semaglutide (weight loss) (Wegovy) mg subcut sodium chloride 1,000 mg PO BID 30 days telmisartan 80 mg PO QAM 90 days [xeroform As directed] HPI Comments Details: This is a 58-year-old white female sent to endocrinology for evaluation of empty sella syndrome and hyponatremia. A workup revealed a normal TSH was low normal cortisol of 4.4 11:00. Was normal prolactin. In terms of adrenal insufficiency,c/o dizziness, legs heavy. No syncope. No wt loss. Some blurry vision. Some nt sweats. Craves salt. No improvement with salt tablets CT of the head showed CT/CT head/brain wo IV con IMPRESSION: 1. No acute intracranial abnormality. 2. Expanded, partially empty sella. 3. Partially imaged plate and screw fixation of the left mandibular condylar fossa. The left mandibular condyle is not visualized though this region is partially imaged. [facility] Medical History (Updated 03/24/24 @ 13:48 by JANET Tidwell) Difficulty urinating Empty sella turcica Polyarthralgia Raynauds phenomenon DDD (degenerative disc disease), cervical Mediastinal mass Asthma Chronic pain syndrome Costochondritis Thrombocytosis TMJ (temporomandibular joint syndrome) Numbness and tingling of left leg Tremors of nervous system Lyme disease Hypersomnia Snoring Hyperlipidemia HTN (hypertension) GERD (gastroesophageal reflux disease) Generalized headaches Back pain Arthritis Surgical History Mediastinal mass (11/08/23) History of mandibular surgery S/P cervical spinal fusion Hx of cervical spine surgery Hx of endoscopy Hx of colonoscopy History of salpingo-oophorectomy History of laparoscopy Hx of arthroscopy Hx of tubal ligation Hx of hysterectomy, total Hx of shoulder surgery Hx of knee surgery Family History Father Heart disease Cancer Prostate cancer Mother Dementia Congestive heart failure Social History Housing: House Are you a primary career counselor to a significant other at home: No Do you presently have visiting nurse or other home services: No Alcohol intake: current Patient Tobacco Use Status: Tobacco use Unknown Tobacco use type: Cigarette Cigarettes Per Day: 2 Years Smoked: 26 e-Cigarette/Vaping Use: Never Used Second Hand Smoke Exposure: No service: No Current occupational status: disabled Current occupational exposures/hazards: No Cognitive needs: No Hearing needs: No Vision needs: No Physical Exam Vital Signs: Last Vital Signs Pulse 90 03/31/24 14:04 BP 128/82 03/31/24 14:04 BMI result Body Mass Index 36.7 Const Other: No visual field loss by gross confrontation Assessment & Plan Assessment & Plan (1) Empty sella turcica: Code(s): E23.6 - Other disorders of pituitary gland Category: Medical Plan: This is a 58-year-old white female found to have partially empty sella syndrome and hyponatremia along with symptoms of dizziness possibly suggesting adrenal insufficiency. While empty sella syndrome can be a normal variant, it is associated with in some cases secondary adrenal insufficiency, secondary hypothyroidism and hyperprolactinemia. Both secondary adrenal insufficiency and secondary hypothyroidism can result in hyponatremia due to SIADH Prolactin level was normal as was TSH. Plan is to recheck TSH and free T4 to rule out secondary hypothyroidism. Will also send patient for Cortrosyn stimulation test Orders: Orders Free T4 (Free Thyroxine) Today E23.6 - Other disorders of pituitary gland Thyroid Stimulating Hormone Today E23.6 - Other disorders of pituitary gland Referrals Infusion Center Notification E23.6 - Other disorders of pituitary gland, E27.40 - Unspecified adrenocortical insufficiency Medications: New hydrocortisone 10 mg PO BID 60 tabs 5RF Coding Level of Care Code New Pt Level 4 (61956) Diagnoses Empty sella turcica E23.6
[2024-03-31 14:04] VITALS: BP 128/82; PULSE 90; BMI 36.7
== END 2024-03-31 15:48 | disposition home or self-care (01) ==
PROVIDERS: PCP Family Medicine; Visit Provider Internal Medicine Endocrinology, Diabetes & Metabolism
DX: E23.6 Other disorders of pituitary gland (principal)
CPT/HCPCS: 99204

== ENCOUNTER 2024-04-10 17:45 | Outpatient (REF) | payer OTHER, SELFPAY ==
--- NOTE | ~2024-04-10 | MR_ITS ---
MRI OF THE THORACIC SPINE WITHOUT CONTRAST MRI OF THE LUMBAR SPINE WITHOUT CONTRAST CLINICAL INFORMATION: Chronic pain syndrome. Postlaminectomy syndrome. Bilateral lower extremity weakness and numbness feeling 6 months of conservative treatment. COMPARISON: Thoracic spine MRI September 08, 2021. TECHNIQUE: Multiplanar multisequence MR imaging of the thoracic and lumbar spine obtained without contrast. FINDINGS: THORACIC SPINE MRI: There are 12 rib bearing thoracic type vertebral bodies. Mild rightward convex sclerotic curvature of the upper thoracic spine. Thoracic alignment is otherwise maintained. There is multilevel degenerative disc disease and hypertrophic facet arthropathy throughout the thoracic spine that remains similar to the September 08, 2021 thoracic spine MRI. Small paracentral disc protrusions continue to mildly narrow the central canal at the T6-T7, T7-T8, and T8-T9 levels. There is no high-grade foraminal stenosis within the thoracic spine. There are partially imaged postoperative changes following ACDF at C6-C7. There is no thoracic cord compression and there are no thoracic cord signal changes when accounting for artifact. LUMBAR SPINE MRI: There are 5 nonrib-bearing lumbar-type vertebral bodies. S1 is lumbarized, showing rudimentary disc with S2. Grade 1 retrolisthesis of L2 on L3. There is severe disc line loss at L5-S1 and there is mild disc volume loss at the remaining lumbar levels. There is disc desiccation at all lumbar levels. There are Modic type II endplate signal changes at L5-S1. Modic type I endplate signal changes at L4-L5. No additional bone marrow edema. No acute fractures. Conus terminates at the L1-L2 level. There is bilateral perinephric stranding. L1-L2: A small shallow left paracentral disc protrusion minimally indents the ventral thecal sac without central canal stenosis. There is no foraminal stenosis. L2-L3: Grade 1 retrolisthesis. Shallow left paracentral disc protrusion minimally indents the ventral thecal sac. No foraminal stenosis. L3-L4: There is a left paracentral/left lateral disc protrusion that contacts the traversing left L4 nerve root within the left subarticular zone and results in [id number] left-sided foraminal stenosis without exiting nerve root compression. No central canal and no right foraminal stenosis. L4-L5: There is a large right foraminal/extraforaminal disc protrusion that results in moderate to severe right-sided foraminal stenosis and mass effect on the foraminal and extra foraminal segments of the exiting right L4 nerve root. Left lateral disc osteophyte results in moderate left-sided foraminal stenosis and mass effect on the exiting left L4 nerve root at the left foraminal/extraforaminal junction. There is no central canal stenosis. L5-S1: Shallow disc protrusion minimally indents the ventral thecal sac. Disc osteophyte and advanced facet arthropathy result in moderate to severe bilateral foraminal stenosis with compression of the exiting L5 nerve roots bilaterally. MR/MR lumbar spine wo con IMPRESSION: * Mild to moderate thoracic spondylosis. No severe central canal stenosis and no severe foraminal stenosis within the thoracic spine. There are partially imaged postoperative changes following ACDF at C6-C7. * At L3-L4, there is a left paracentral/left lateral disc protrusion that contacts the traversing left L4 nerve root within the left subarticular zone and results in [id number] left-sided foraminal stenosis without exiting nerve root compression. * At L4-L5, there is a large right foraminal/extraforaminal disc protrusion that results in moderate to severe right-sided foraminal stenosis and mass effect on the foraminal and extra foraminal segments of the exiting right L4 nerve root. Left lateral disc osteophyte results in moderate left-sided foraminal stenosis and mass effect on the exiting left L4 nerve root at the left foraminal/extraforaminal junction. * At L5-S1, multifactorial degenerative changes result in moderate to severe bilateral foraminal stenosis with compression of the exiting L5 nerve roots bilaterally. * S1 shares a rudimentary disc with S2. Electronically signed by: Christian Phillips MD 04/21/2024 12:40 PM EDT
--- NOTE | ~2024-04-10 | MR_ITS ---
MRI OF THE THORACIC SPINE WITHOUT CONTRAST MRI OF THE LUMBAR SPINE WITHOUT CONTRAST CLINICAL INFORMATION: Chronic pain syndrome. Postlaminectomy syndrome. Bilateral lower extremity weakness and numbness feeling 6 months of conservative treatment. COMPARISON: Thoracic spine MRI September 08, 2021. TECHNIQUE: Multiplanar multisequence MR imaging of the thoracic and lumbar spine obtained without contrast. FINDINGS: THORACIC SPINE MRI: There are 12 rib bearing thoracic type vertebral bodies. Mild rightward convex sclerotic curvature of the upper thoracic spine. Thoracic alignment is otherwise maintained. There is multilevel degenerative disc disease and hypertrophic facet arthropathy throughout the thoracic spine that remains similar to the September 08, 2021 thoracic spine MRI. Small paracentral disc protrusions continue to mildly narrow the central canal at the T6-T7, T7-T8, and T8-T9 levels. There is no high-grade foraminal stenosis within the thoracic spine. There are partially imaged postoperative changes following ACDF at C6-C7. There is no thoracic cord compression and there are no thoracic cord signal changes when accounting for artifact. LUMBAR SPINE MRI: There are 5 nonrib-bearing lumbar-type vertebral bodies. S1 is lumbarized, showing rudimentary disc with S2. Grade 1 retrolisthesis of L2 on L3. There is severe disc line loss at L5-S1 and there is mild disc volume loss at the remaining lumbar levels. There is disc desiccation at all lumbar levels. There are Modic type II endplate signal changes at L5-S1. Modic type I endplate signal changes at L4-L5. No additional bone marrow edema. No acute fractures. Conus terminates at the L1-L2 level. There is bilateral perinephric stranding. L1-L2: A small shallow left paracentral disc protrusion minimally indents the ventral thecal sac without central canal stenosis. There is no foraminal stenosis. L2-L3: Grade 1 retrolisthesis. Shallow left paracentral disc protrusion minimally indents the ventral thecal sac. No foraminal stenosis. L3-L4: There is a left paracentral/left lateral disc protrusion that contacts the traversing left L4 nerve root within the left subarticular zone and results in [id number] left-sided foraminal stenosis without exiting nerve root compression. No central canal and no right foraminal stenosis. L4-L5: There is a large right foraminal/extraforaminal disc protrusion that results in moderate to severe right-sided foraminal stenosis and mass effect on the foraminal and extra foraminal segments of the exiting right L4 nerve root. Left lateral disc osteophyte results in moderate left-sided foraminal stenosis and mass effect on the exiting left L4 nerve root at the left foraminal/extraforaminal junction. There is no central canal stenosis. L5-S1: Shallow disc protrusion minimally indents the ventral thecal sac. Disc osteophyte and advanced facet arthropathy result in moderate to severe bilateral foraminal stenosis with compression of the exiting L5 nerve roots bilaterally. MR/MR thoracic spine wo con IMPRESSION: * Mild to moderate thoracic spondylosis. No severe central canal stenosis and no severe foraminal stenosis within the thoracic spine. There are partially imaged postoperative changes following ACDF at C6-C7. * At L3-L4, there is a left paracentral/left lateral disc protrusion that contacts the traversing left L4 nerve root within the left subarticular zone and results in [id number] left-sided foraminal stenosis without exiting nerve root compression. * At L4-L5, there is a large right foraminal/extraforaminal disc protrusion that results in moderate to severe right-sided foraminal stenosis and mass effect on the foraminal and extra foraminal segments of the exiting right L4 nerve root. Left lateral disc osteophyte results in moderate left-sided foraminal stenosis and mass effect on the exiting left L4 nerve root at the left foraminal/extraforaminal junction. * At L5-S1, multifactorial degenerative changes result in moderate to severe bilateral foraminal stenosis with compression of the exiting L5 nerve roots bilaterally. * S1 shares a rudimentary disc with S2. Electronically signed by: Christian Phillips MD 04/21/2024 12:40 PM EDT
== END 2024-04-10 17:46 | disposition home or self-care (01) ==
LOC: HO.MRI 17:45
PROVIDERS: PCP Family Medicine; Visit Provider Registered Nurse Emergency
DX: M96.1 Postlaminectomy syndrome, not elsewhere classified (principal); M47.816 Spondylosis without myelopathy or radiculopathy, lumbar region; M54.6 Pain in thoracic spine; M79.18 Myalgia, other site; G89.4 Chronic pain syndrome
CPT/HCPCS: 72146; 72148

== ENCOUNTER 2024-04-15 09:17 | Outpatient (REF) | payer OTHER, SELFPAY ==
[2024-04-15 11:07] LABS: Sodium 138 mmol/L (135-145)
== END 2024-04-15 09:18 | disposition home or self-care (01) ==
LOC: HO.HMGCLDS 09:17
PROVIDERS: PCP Family Medicine; Visit Provider Physician Assistant Medical
DX: E87.1 Hypo-osmolality and hyponatremia (principal)
CPT/HCPCS: 36415; 84295

== ENCOUNTER 2024-04-17 09:17 | Outpatient (AMB) | payer OTHER, SELFPAY ==
--- NOTE | 2024-04-17 09:27 | A.OFFPC_ITS ---
Vital Signs 04/17/24 09:35 Height 5 ft Weight 191 lb 4 oz BMI 37.3 BP 120/80 Blood Pressure Location Rt brachial Position Sitting Respiration 16 Pulse 72 Pulse Source Pulse Oximeter Temp 97.5 F Temp Source Tympanic Pulse Oximetry (%) 99 Oxygen Delivery Method Room Air Intake Visit Reasons: follow up labs/tests from specialist Intake Note: follow up for dizziness and weakness and sjorgerens and kidney issues and jury duty letter pt has jury duty jul 07 she is mainly concerned about sjorgerens and kidney issues and would like to discuss that today. Allergies Seasonal Allergies Allergy (Severe, Verified 04/17/24 09:33) Itchy Eyes lisinopril Adverse Reaction (Severe, Verified 04/17/24 09:33) Cough pregabalin [From Lyrica] Adverse Reaction (Severe, Verified 04/17/24 09:33) Shortness of Breath celecoxib [From Celebrex] Adverse Reaction (Intermediate, Verified 04/17/24 09:33) Hypertension varenicline [From Chantix] Adverse Reaction (Intermediate, Verified 04/17/24 09:33) Depression Medication List - Last Reconciled 04/17/24 by Amrik Mendoza MD albuterol sulfate 90 mcg/actuation 2 puffs inhalation Q6H PRN 30 days atorvastatin 40 mg PO BEDTIME 90 days bupropion HCl XL 300 mg PO QAM 90 days buspirone 15 mg (1.5 x 10 mg) PO BID [cloth tape As directed] cyclobenzaprine 10 mg PO TID cyclosporine 0.05% (Restasis) 1 drp ophthalmic (eye) Q12H diclofenac sodium 1% 4 grams topical QID PRN 30 days diltiazem HCl ER 240 mg PO DAILY fluconazole 150 mg PO Q3D 2 doses fluoxetine 40 mg (2 x 20 mg) PO QAM 30 days fluticasone propion-salmeterol 250-50 mcg/dose (Advair Diskus) 1 inh inhalation Q12H hydrocortisone 10 mg PO BID lorazepam (Ativan) 1 mg PO DAILY PRN magnesium gluconate (Mag-G) 27 mg PO BID meloxicam 15 mg PO QAM montelukast (Singulair) 10 mg PO QAM 90 days nystatin 400,000 units (4 mL) buccal QID 7 days omega 5-yav-aem-fish oil 300-1,000 mg (Fish Oil) 1 cap PO QAM omeprazole 20 mg PO QAM 90 days propranolol ER 60 mg PO BEDTIME sodium chloride 1,000 mg PO BID 30 days telmisartan 80 mg PO QAM 90 days [xeroform As directed] Tobacco use date assessed: 01/30/24 Dental Screening Dental Screen Date: 01/30/24 HPI follow up labs/tests from specialist HPI Details 58 y/o female presents to f/u hypertensi on, chronic conditions. Blood pressure today 120/80. She is on propranolol 60mg, telmisartan 80mg. Had been seeing endocrinology Dr. Martin for empty sella turcica. They plan to recheck TSh and free T4 to rule out secondary hypothyroidism and plan to send pt for cortrosyn stimulation test. Had been having symptoms of dizziness/weakness. Has been taking otc meclizine for dizziness. Continues to be followed by pain management for back pain. Pulmonology ordered a swallow study and pt states she has cancelled this. She reports ongoing difficulty swallowing. Has complaints of R tay pain after fall. HPI Comments History of Present Illness Details Documentation assistance for Amrik Mendoza MD, was provided by Neri French,? Farm Equipment Service Technician on 04/17/2024 at 10:22 AM EST. I, Dr. Mendoza, have read, observed, and verified documentation. [facility] Medical History (Updated 04/17/24 @ 10:20 by Neri French) Difficulty urinating Empty sella turcica Polyarthralgia Raynauds phenomenon DDD (degenerative disc disease), cervical Mediastinal mass Asthma Chronic pain syndrome Costochondritis Thrombocytosis TMJ (temporomandibular joint syndrome) Numbness and tingling of left leg Tremors of nervous system Lyme disease Hypersomnia Snoring Hyperlipidemia HTN (hypertension) GERD (gastroesophageal reflux disease) Generalized headaches Back pain Arthritis Surgical History Mediastinal mass (11/08/23) History of mandibular surgery S/P cervical spinal fusion Hx of cervical spine surgery Hx of endoscopy Hx of colonoscopy History of salpingo-oophorectomy History of laparoscopy Hx of arthroscopy Hx of tubal ligation Hx of hysterectomy, total Hx of shoulder surgery Hx of knee surgery Family History Father Heart disease Cancer Prostate cancer Mother Dementia Congestive heart failure Social History Housing: House Are you a primary rn home care to a significant other at home: No Do you presently have visiting nurse or other home services: No Alcohol intake: current Patient Tobacco Use Status: Tobacco use Unknown Tobacco use type: Cigarette Cigarettes Per Day: 2 Years Smoked: 26 e-Cigarette/Vaping Use: Never Used Second Hand Smoke Exposure: No service: No Current occupational status: disabled Current occupational exposures/hazards: No Cognitive needs: No Hearing needs: No Vision needs: No Questionnaire Thrive Questionnaire Date Thrive assessed: 01/30/24 RAFAEL-7 AMB Questionnaire RAFAEL-7 Date RAFAEL - 7 assessed: 10/04/22 Source: Developed by Drs. Celso Blake, Sarah Abreu, Shravan Dominique and colleagues, with an educational allan from [employer]. Review of Systems Const Denies chills, Denies fatigue, Denies fever(s), Denies headache(s) and Denies weakness ENT Reports dizziness and Denies headache(s) Card Denies chest pain, Denies lightheadedness, Denies dyspnea and Denies other ( Palpitations) Resp Denies cough, Denies dyspnea, Denies wheezing and Denies other ( shortness of breath) Musc Denies numbness and Denies tingling Neuro Reports dizziness, Denies headache(s), Denies numbness, Denies tingling, Denies paresthesias and Denies weakness Psych Denies anxiety and Denies depression Endo Denies fatigue Aller/Immun Denies wheezing Physical exam (Primary Care) Vital Signs: Last Vital Signs Temp 97.5 F 04/17/24 09:35 Pulse 72 04/17/24 09:35 Resp 16 04/17/24 09:35 BP 120/80 04/17/24 09:35 Pulse Ox 99 04/17/24 09:35 Oxygen Delivery Method Room Air 04/17/24 09:35 BMI result Body Mass Index 37.3 Tobacco/Smoking Status: Tobacco use Status Tobacco use date assessed 01/30/24 04/17/24 09:27 Patient Tobacco Use Status Tobacco use Unknown 04/17/24 09:27 Tobacco use type Cigarette 04/17/24 09:27 e-Cigarette/Vaping Use Never Used 04/17/24 09:27 Thrive Assessment: Date of Thrive Assessment Date Thrive assessed 01/30/24 04/17/24 09:27 Const General: no acute distress and well developed Nutritional Appearance: well nourished Orientation/consciousness: patient oriented x3 [facility] Head: Yes normocephalic and Yes atraumatic Eyes General: appearance normal, both eyes and all related structures Pupils: Equal, round and reactive pupils present EOM: EOMs intact bilaterally Resp Effort & Inspection: normal respiratory effort Auscultation: clear to auscultation bilaterally Cardio Rate: regular rate Rhythm: regular rhythm Heart sounds: S1 normal heart sound present, S2 normal heart sound present, no gallops, no murmurs and no rubs Neuro General: patient oriented x3 and gait normal Cranial nerves: Yes Equal, round and reactive pupils present Psych Affect: normal affect Assessment and Plan Assessment & Plan (1) HTN (hypertension): Code(s): I10 - Essential (primary) hypertension Qualifiers: Hypertension type: primary hypertension Qualified Code(s): I10 - Essen tial (primary) hypertension Plan: Blood?pressure?much?improved?from?most?recent?visit. No?changes?to?her?medication?were?made (2) Empty sella turcica: Code(s): E23.6 - Other disorders of pituitary gland Plan: Concern?for?a?secondary?ad renal?insufficiency?however?patient?says?that?recent?testing?was?negative?for?th is. 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 Most?recent?sodium?level?is?138?which?is?within?normal?range Follow-up?with?endocrinology (3) Dizziness: Code(s): R42 - Dizziness and giddiness Plan: Ongoing?dizziness?which?may?be?due?to?electrolyte?imbalances Follow-up?with?endocrinology She?also?has?follow-up?with?ear?nose?and?throat - follow- up?with?ear?nose?and?throat (4) Back pain: Code(s): M54.9 - Dorsalgia, unspecified Plan: Followed?by?pain?management?and?they?are?discussing?fusion?for?sacroiliitis?as?s he?has?not?responded?well?to?injection?therapy. Follow-up?with?pain?management?and?ortho. She?also?has?significan t?myofascial?pain?and?joint?pain.??Patient?requests?a?new?referral?to?Rheumatolo gy?which?I?have?made (5) Dysphagia: Code(s): R13.10 - Dysphagia, unspecified Plan: Modified?barium?swallow?negative?for?any?airway?penetration She?has?been?referred?to?GI?but?has?pushed?off?this?appointment?due ?to?dizziness. Follow-up?with?GI?when?feeling?better (6) Hyponatremia: Code(s): E87.1 - Hypo-osmolality and hyponatremia Plan: As?above Patient?is?referred?to?Nephrology?as?well (7) Pain in right tay: Code(s): M79.661 - Pain in right lower leg Plan: Pain?at?proximal?right?tay?after?a?fall.??She?is?walking?normally?and?bearing?w eight. Likely?contusion Will?rule?out?occult,?nondisplaced?fracture. check Xray Orders: Orders XR tibia fibula RT 2V 04/17/24 M79.661 - Pain in right lower leg Triiodothyronine T3 Total 04/17/24 E03.9 - Hypothyroidism, unspecified, E87.1 - Hypo-osmolality and hyponatremia Comprehensive Met. Panel 04/17/24 E87.1 - Hypo-osmolality and hyponatremia Free T4 (Free Thyroxine) 04/17/24 E03.9 - Hypothyroidism, unspecified, E87.1 - Hypo-osmolality and hyponatremia Thyroid Stimulating Hormone 04/17/24 E03.9 - Hypothyroidism, unspecified, E87.1 - Hypo-osmolality and hyponatremia Cortisol Random 04/17/24 E87.1 - Hypo-osmolality and hyponatremia FRANCISCO Reflex Titer and Pattern 04/17/24 M79.18 - Myalgia, other site Scleroderma 12 Panel 04/17/24 M79.18 - Myalgia, other site Referrals Nephrology Referral E87.1 - Hypo-osmolality and hyponatremia Rheumatology Referral M25.50 - Pain in unspecified joint, M54.6 - Pain in thoracic spine, M79.18 - Myalgia, other site Medications: New meclizine 50 mg PO DAILY 30 days PRN 20 tabs 0RF motion sickness Coding Level of Care Code Est Pt Level 4 (45221) Diagnoses Primary hypertension I10 Hypertension type: primary hypertension Empty sella turcica E23.6 Dizziness R42 Back pain M54.9 Dysphagia R13.10 Hyponatremia E87.1 Pain in right tay M79.661
[2024-04-17 09:35] VITALS: BP 120/80; PULSE 72; RESP 16; TEMP 36.4; O2SAT 99; BMI 37.3
== END 2024-04-17 10:22 | disposition home or self-care (01) ==
PROVIDERS: PCP Family Medicine; Visit Provider Family Medicine
DX: I10 Essential (primary) hypertension (principal); E23.6 Other disorders of pituitary gland; R42 Dizziness and giddiness; M54.9 Dorsalgia, unspecified; R13.10 Dysphagia, unspecified; E87.1 Hypo-osmolality and hyponatremia; M79.661 Pain in right lower leg
CPT/HCPCS: 99214

== ENCOUNTER 2024-04-25 09:01 | Outpatient (REF) | payer OTHER, SELFPAY ==
--- NOTE | ~2024-04-25 | XR_ITS ---
EXAMINATION: XR TIBIA AND FIBULA, RIGHT CLINICAL INFORMATION: Sommers pain after a fall COMPARISON: None available. TECHNIQUE: AP and lateral views of the right tibia and fibula were obtained. FINDINGS: The bones and soft tissues are normal. No fracture. No osseous lesions. XR/XR tibia fibula RT 2V IMPRESSION: Normal right tibia and fibula. Electronically signed by: Mike Chiu MD 05/01/2024 10:20 AM EDT
[2024-04-25 10:58] LABS: Cortisol Random 6.1 ug/dL
[2024-04-25 11:00] LABS: Alanine Aminotransferase 34 U/L (0-31); Albumin Level 4.2 g/dL (3.5-5.0); Alkaline Phosphatase 103 U/L (39-117); Anion Gap 13 (12-20); Aspartate Amino Transferase 22 U/L (5-31); Bilirubin Total 0.3 mg/dL (0.0-1.0); Blood Urea Nitrogen 8 mg/dL (9-16); Calcium 10.2 mg/dL (8.4-10.2); Carbon Dioxide 24 mmol/L (22-29); Chloride 103 mmol/L (96-108); Estimated Glomerular Filt Rate > 60; Glucose Random 93 mg/dL (60-115); Potassium 3.8 mmol/L (3.3-5.1); Sodium 136 mmol/L (135-145); Total Protein 7.2 g/dL (6.5-8.0)
[2024-04-25 11:01] LABS: Free T4 (Free Thyroxine) 0.89 ng/dL (0.71-1.85); Thyroid Stimulating Hormone 1.14 uIU/mL (0.32-4.0)
[2024-04-27 10:23] LABS: Triiodothyronine T3 Total 91 ng/dL (76-181)
[2024-05-01 14:14] LABS: Anti Nuclear Antibody Screen POSITIVE (NEGATIVE)
[2024-05-02 16:58] LABS: Centromere Protein A Ab <11 SI (<11); Centromere Protein B Ab <11 SI (<11); Fibrillarin Ab <11 SI (<11); PM SCL 100 Ab <11 SI (<11); PM SCL 75 Ab <11 SI (<11); RNA Polymerase III RP11 Ab <11 SI (<11); RNA Polymerase III RP155 Ab <11 SI (<11); SCL-70 Extractable Nuclear Ab <11 SI (<11); Th-To Ab <11 SI (<11); U1 SNRNP RNP 70KD <11 SI (<11); U1 SNRNP RNP A <11 SI (<11); U1 SNRNP RNP C <11 SI (<11)
== END 2024-04-25 09:02 | disposition home or self-care (01) ==
LOC: HO.HMGCX 09:01
PROVIDERS: PCP Family Medicine; Visit Provider Family Medicine
DX: M79.661 Pain in right lower leg (principal); E87.1 Hypo-osmolality and hyponatremia; E03.9 Hypothyroidism, unspecified; M79.18 Myalgia, other site
CPT/HCPCS: 36415; 73590; 80053; 82533; 84182; 84439; 84443; 84480; 86038; 86039; 86235

== ENCOUNTER 2024-04-29 09:11 | Outpatient (AMB) | payer OTHER, SELFPAY ==
[2024-04-29 09:24] VITALS: BP 185/100; PULSE 85; O2SAT 97
--- NOTE | 2024-04-29 09:24 | A.OFFVIS_ITS ---
Vital Signs 3 04/29/24 09:24 BP 185/100 H Blood Pressure Location Lt brachial Position Sitting Pulse 85 Pulse Source Pulse Oximeter Pulse Oximetry (%) 97 Oxygen Delivery Method Room Air Intake Visit Reasons: MRI discussion Allergies Seasonal Allergies Allergy (Severe, Verified 04/29/24 09:25) Itchy Eyes lisinopril Adverse Reaction (Severe, Verified 04/29/24 09:25) Cough pregabalin [From Lyrica] Adverse Reaction (Severe, Verified 04/29/24 09:25) Shortness of Breath celecoxib [From Celebrex] Adverse Reaction (Intermediate, Verified 04/29/24 09:25) Hypertension varenicline [From Chantix] Adverse Reaction (Intermediate, Verified 04/29/24 09:25) Depression Medication List - Last Reconciled 04/29/24 by Rosalba Franz albuterol sulfate 90 mcg/actuation 2 puffs inhalation Q6H PRN 30 days atorvastatin 40 mg PO BEDTIME 90 days bupropion HCl XL 300 mg PO QAM 90 days buspirone 15 mg (1.5 x 10 mg) PO BID [cloth tape As directed] cyclobenzaprine 10 mg PO TID cyclosporine 0.05% (Restasis) 1 drp ophthalmic (eye) Q12H diclofenac sodium 1% 4 grams topical QID PRN 30 days diltiazem HCl ER 240 mg PO DAILY fluconazole 150 mg PO Q3D 2 doses fluoxetine 40 mg (2 x 20 mg) PO QAM 30 days fluticasone propion-salmeterol 250-50 mcg/dose (Advair Diskus) 1 inh inhalation Q12H hydrocortisone 10 mg PO BID lorazepam (Ativan) 1 mg PO DAILY PRN magnesium gluconate (Mag-G) 27 mg PO BID meclizine 50 mg PO DAILY PRN 30 days meloxicam 15 mg PO QAM montelukast (Singulair) 10 mg PO QAM 90 days nystatin 400,000 units (4 mL) buccal QID 7 days omega 9-syi-zgo-fish oil 300-1,000 mg (Fish Oil) 1 cap PO QAM omeprazole 20 mg PO QAM 90 days propranolol ER 60 mg PO BEDTIME sodium chloride 1,000 mg PO BID 30 days telmisartan 80 mg PO QAM 90 days [xeroform As directed] HPI Comments Details: Lety presents back to the office today for follow up, review of recent MRI MRI reviewed, results as per below Continues with mid and lower back pain, rated as 8 of 10. Has exhausted conservative therapy including PT, home exercise program, nonsteroidal anti-inflammatory medications, muscle relaxers, injections all without improvement of her pain Currently awaiting evaluation by endocrinology for evaluation of hyponatremia. Prior: Patient presents to the office today for follow up lower back pain report some improvement in the pain to her PSIS since injections 2 weeks ago nut midline thoracic and lower back pain persist and now feel worse endorses continued feeling of BLE heaviness and worsening numbness denies red flag symptoms including new loss of bowel, bladder or saddle anesthesia Prior: Telephone visit completed today for follow up. Patient underwent bilateral therapeutic sacroiliac joint injections 1 day ago Reports minimal improvement in pain, function and mobility since the injections. Pain today rated as 6/10. States prior to injections pain was 7/10. Prior: Lety is a very pleasant 58 year old female who presents to the office today for evaluation management of her chronic lower back and midline thoracic back pain Patient reports that she has been suffering with these pains for several years, the lower back pain has worsened over the last 3 months Today she is requesting to focus on the lower back pain Pain today is rated as 7/10, constant Pain bilateral PSIS, with radiation to posterior thighs and bilateral groin Worse with standing, sitting and climbing stairs Pain does not radiate past level of the knee Denies red flag symptoms including new loss of bowel, bladder or saddle anesthesia PT in the past has not been helpful. For the last 2 months she has been doing HEP focus on bilateral SIJ. No improvement with the HEP. Using SIJ belt, feels some mild relief when wearing it but pain remains severe with stairs. Patient has tried prescription NSAIDS, muscle relaxers, topical medications and lidocaine patches for greater than 6 months without improvement. She will be starting Wegovy for weight loss soon. Hoping that this will improve her pain. Currently being tapered off of her Prozac with plan to start Cymbalta. She was advised that this may also improve her pain. In terms of muscle damage condition is described as stabbing, tingling, pulling, tugging, pinching, cramping, tiring, sore, hurting, aching, punishing, spreading, tight, squeezing. Pain is negatively impacting patient's enjoyment of life, normal function, ability to perform activities of daily living, sleep and walking Patient has also looking to be treated for chronic thoracic back pain. She previously underwent sterile injections at T3, T4-T7 and T8 with very short-term relief. She had trigger point injections were which were also not help. No relief with NSAIDs, [id number]-[id number] medications, topical medications and muscle relaxers. [facility] Medical History (Updated 04/17/24 @ 10:20 by Neri French) Difficulty urinating Empty sella turcica Polyarthralgia Raynauds phenomenon DDD (degenerative disc disease), cervical Mediastinal mass Asthma Chronic pain syndrome Costochondritis Thrombocytosis TMJ (temporomandibular joint syndrome) Numbness and tingling of left leg Tremors of nervous system Lyme disease Hypersomnia Snoring Hyperlipidemia HTN (hypertension) GERD (gastroesophageal reflux disease) Generalized headaches Back pain Arthritis Surgical History Mediastinal mass (11/08/23) History of mandibular surgery S/P cervical spinal fusion Hx of cervical spine surgery Hx of endoscopy Hx of colonoscopy History of salpingo-oophorectomy History of laparoscopy Hx of arthroscopy Hx of tubal ligation Hx of hysterectomy, total Hx of shoulder surgery Hx of knee surgery Family History Father Heart disease Cancer Prostate cancer Mother Dementia Congestive heart failure Social History Housing: House Are you a primary mall plant caretaker to a significant other at home: No Do you presently have visiting nurse or other home services: No Alcohol intake: current Patient Tobacco Use Status: Tobacco use Unknown Tobacco use type: Cigarette Cigarettes Per Day: 2 Years Smoked: 26 e-Cigarette/Vaping Use: Never Used Second Hand Smoke Exposure: No service: No Current occupational status: disabled Current occupational exposures/hazards: No Cognitive needs: No Hearing needs: No Vision needs: No Review of Systems Const All systems reviewed & are unremarkable except as noted in HPI and below Physical Exam Vital Signs: Last Vital Signs Pulse 85 04/29/24 09:24 BP 185/100 H 04/29/24 09:24 Pulse Ox 97 04/29/24 09:24 Oxygen Delivery Method Room Air 04/29/24 09:24 General: awake, alert, oriented. Answers questions appropriately. Fully engaged in examination. Skin: warm, dry, intact HEENT: Normocephalic. Hearing intact. Cardiac: External chest normal in appearance. Respiratory: No cough, audible wheezing or stridor. Abdomen: without gross distension. MS: No obvious swelling or deformities. Able to stand on bilateral tiptoes and bilateral heels.? Able to transition from sit to stand unassisted. Ambulates with bilaterally normal heel strike and toe off Neurological: Oriented to person, place, time and situation. Thought process intact. No gait abnormalities appreciated. Psychiatric: Appropriate mood and affect. Good judgment and insight. Results Reviewed Results Reviewed: 04/10/2024 MRI OF THE THORACIC SPINE WITHOUT CONTRAST MRI OF THE LUMBAR SPINE WITHOUT CONTRAST CLINICAL INFORMATION: Chronic pain syndrome. Postlaminectomy syndrome. Bilateral lower extremity weakness and numbness feeling 6 months of conservative treatment. COMPARISON: Thoracic spine MRI September 08, 2021. TECHNIQUE: Multiplanar multisequence MR imaging of the thoracic and lumbar spine obtained without contrast. FINDINGS: THORACIC SPINE MRI: There are 12 rib bearing thoracic type vertebral bodies. Mild rightward convex sclerotic curvature of the upper thoracic spine. Thoracic alignment is otherwise maintained. There is multilevel degenerative disc disease and hypertrophic facet arthropathy throughout the thoracic spine that remains similar to the September 08, 2021 thoracic spine MRI. Small paracentral disc protrusions continue to mildly narrow the central canal at the T6-T7, T7-T8, and T8-T9 levels. There is no high-grade foraminal stenosis within the thoracic spine. There are partially imaged postoperative changes following ACDF at C6-C7. There is no thoracic cord compression and there are no thoracic cord signal changes when accounting for artifact. LUMBAR SPINE MRI: There are 5 nonrib-bearing lumbar-type vertebral bodies. S1 is lumbarized, showing rudimentary disc with S2. Grade 1 retrolisthesis of L2 on L3. There is severe disc line loss at L5-S1 and there is mild disc volume loss at the remaining lumbar levels. There is disc desiccation at all lumbar levels. There are Modic type II endplate signal changes at L5-S1. Modic type I endplate signal changes at L4-L5. No additional bone marrow edema. No acute fractures. Conus terminates at the L1-L2 level. There is bilateral perinephric stranding. L1-L2: A small shallow left paracentral disc protrusion minimally indents the ventral thecal sac without central canal stenosis. There is no foraminal stenosis. L2-L3: Grade 1 retrolisthesis. Shallow left paracentral disc protrusion minimally indents the ventral thecal sac. No foraminal stenosis. L3-L4: There is a left paracentral/left lateral disc protrusion that contacts the traversing left L4 nerve root within the left subarticular zone and results in [id number] left-sided foraminal stenosis without exiting nerve root compression. No central canal and no right foraminal stenosis. L4-L5: There is a large right foraminal/extraforaminal disc protrusion that results in moderate to severe right-sided foraminal stenosis and mass effect on the foraminal and extra foraminal segments of the exiting right L4 nerve root. Left lateral disc osteophyte results in moderate left-sided foraminal stenosis and mass effect on the exiting left L4 nerve root at the left foraminal/extraforaminal junction. There is no central canal stenosis. L5-S1: Shallow disc protrusion minimally indents the ventral thecal sac. Disc osteophyte and advanced facet arthropathy result in moderate to severe bilateral foraminal stenosis with compression of the exiting L5 nerve roots bilaterally. IMPRESSION: * Mild to moderate thoracic spondylosis. No severe central canal stenosis and no severe foraminal stenosis within the thoracic spine. There are partially imaged postoperative changes following ACDF at C6-C7. * At L3-L4, there is a left paracentral/left lateral disc protrusion that contacts the traversing left L4 nerve root within the left subarticular zone and results in [id number] left-sided foraminal stenosis without exiting nerve root compression. * At L4-L5, there is a large right foraminal/extraforaminal disc protrusion that results in moderate to severe right-sided foraminal stenosis and mass effect on the foraminal and extra foraminal segments of the exiting right L4 nerve root. Left lateral disc osteophyte results in moderate left-sided foraminal stenosis and mass effect on the exiting left L4 nerve root at the left foraminal/extraforaminal junction. * At L5-S1, multifactorial degenerative changes result in moderate to severe bilateral foraminal stenosis with compression of the exiting L5 nerve roots bilaterally. * S1 shares a rudimentary disc with S2. 02/01/2024 XR/XR lumbar spine 2-3V FINDINGS: Mild dextroscoliosis of the lumbar spine. Surgical clips in the pelvis. Facet arthritis in the lower lumbar spine. Moderate multilevel lumbar spondylosis with moderate loss of disc space height at L2-L3, L3-L4, L4-L5 and marked loss of disc space at L5-S1. IMPRESSION: Moderate multilevel lumbar spondylosis. 09/08/2021 MRI Thoracic Assessment & Plan Assessment & Plan (1) Chronic pain syndrome: Code(s): G89.4 - Chronic pain syndrome Category: Medical (2) Myofascial pain syndrome of thoracic spine: Code(s): M79.18 - Myalgia, other site Category: Medical (3) Thoracic back pain: Code(s): M54.6 - Pain in thoracic spine Category: Medical (4) Post laminectomy syndrome: Code(s): M96.1 - Postlaminectomy syndrome, not elsewhere classified Category: Medical (5) Lumbar spondylosis: Code(s): M47.816 - Spondylosis without myelopathy or radiculopathy, lumbar region Category: Medical (6) Myofascial pain syndrome of thoracic spine: Code(s): M79.18 - Myalgia, other site Category: Medical (7) Thoracic back pain: Code(s): M54.6 - Pain in thoracic spine Category: Medical (8) Post laminectomy syndrome: Code(s): M96.1 - Postlaminectomy syndrome, not elsewhere classified Category: Medical Plan Lety presented back to the office today for follow-up chronic back pain and review of recent MRI MRI reviewed, results as per above Patient has exhausted greater than 6 months of conservative treatment including physical therapy, home exercise program, nonsteroidal anti-inflammatory medications, muscle relaxers and bracing without improvement of her symptoms Discussed options for treatment including diagnostic interventional testing, epidural steroid injections, peripheral nerve stimulation with Sprint, RFA and more permanent neuromodulation. Informational pamphlets provided. Will schedule for fluoroscopy guided SCS trial with Nevro under sedation Continue with meloxicam and cyclobenzaprine as prescribed by PCP All questions and concerns have been answered and patient agrees with the plan. Follow up in the office after procedure, sooner if needed Coding Level of Care Code Est Pt Level 3 (89496) Complex EM visit Add On G2211 Diagnoses Chronic pain syndrome G89.4 Myofascial pain syndrome of thoracic spine M79.18 Thoracic back pain M54.6 Post laminectomy syndrome M96.1 Lumbar spondylosis M47.816
== END 2024-04-29 09:46 | disposition home or self-care (01) ==
PROVIDERS: PCP Family Medicine; Visit Provider Registered Nurse Emergency
DX: G89.4 Chronic pain syndrome (principal); M79.18 Myalgia, other site; M54.6 Pain in thoracic spine; M96.1 Postlaminectomy syndrome, not elsewhere classified; M47.816 Spondylosis without myelopathy or radiculopathy, lumbar region
CPT/HCPCS: 99213

== ENCOUNTER → 2024-04-29 09:11 | Outpatient (BNVA) | payer OTHER, SELFPAY | PROVIDERS: PCP Family Medicine; Visit Provider Registered Nurse Emergency ==

== ENCOUNTER 2024-05-15 11:18 | Outpatient (AMB) | payer OTHER, SELFPAY ==
--- NOTE | 2024-05-15 11:21 | HO.NEPHOV ---
Vital Signs 05/15/24 11:22 Height 5 ft Weight 192 lb BMI 37.5 BP 162/98 H Blood Pressure Location Rt brachial Position Sitting Pulse 86 Pulse Source Pulse Oximeter Pulse Oximetry (%) 98 Oxygen Delivery Method Room Air Intake Visit Reasons: Hypo-osmolality and hyponatremia/ Conf Health Type Technician Required: No Accompanied by: Spouse Allergies Seasonal Allergies Allergy (Severe, Verified 05/15/24 11:25) Itchy Eyes lisinopril Adverse Reaction (Severe, Verified 05/15/24 11:25) Cough pregabalin [From Lyrica] Adverse Reaction (Severe, Verified 05/15/24 11:25) Shortness of Breath celecoxib [From Celebrex] Adverse Reaction (Intermediate, Verified 05/15/24 11:25) Hypertension varenicline [From Chantix] Adverse Reaction (Intermediate, Verified 05/15/24 11:25) Depression Medication List - Last Reconciled 05/15/24 by Jorge Vasquez MD albuterol sulfate 90 mcg/actuation 2 puffs inhalation Q6H PRN 30 days atorvastatin 40 mg PO BEDTIME 90 days bupropion HCl XL 300 mg PO QAM 90 days buspirone 15 mg (1.5 x 10 mg) PO BID cyclobenzaprine 10 mg PO TID cyclosporine 0.05% (Restasis) 1 drp ophthalmic (eye) Q12H diclofenac sodium 1% 4 grams topical QID PRN 30 days diltiazem HCl ER 240 mg PO DAILY fluoxetine 40 mg (2 x 20 mg) PO QAM 30 days fluticasone propion-salmeterol 250-50 mcg/dose (Wixela Inhub) 1 inh inhalation BID hydrocortisone 10 mg PO BID lorazepam (Ativan) 1 mg PO DAILY PRN magnesium gluconate (Mag-G) 27 mg PO BID meloxicam 15 mg PO QAM montelukast (Singulair) 10 mg PO QAM 90 days omega 4-ngr-cch-fish oil 300-1,000 mg (Fish Oil) 1 cap PO QAM omeprazole 20 mg PO QAM 90 days propranolol ER 60 mg PO BEDTIME sodium chloride 1,000 mg PO BID 30 days telmisartan 80 mg PO QAM 90 days HPI Comments Details: 58-year-old woman with a history of empty sella turcica referred for hyponatremia. She was seen by endocrinology for empty sella turcica. Endocrine workup was done. Initial cortisol level was low cortisol stimulation test was normal. She is on sodium chloride 1 g b.i.d. and recent sodium levels have been normal. She was on fluoxetine 40 mg which has been gradually tapered down to 10 mg a day. She is currently drinking around 1.2 L of free water. She continues to have dizziness. The dizziness has been a chronic problem. She was seen by ENT and was cleared. She was given meclizine which she tried and there was no benefit therefore she was stopped meclizine. History of hypertension. She is on 2 antihypertensive medication. The blood pressure has been fluctuating widely. No syncopal episodes History of major depressive disorder. [facility] Medical History (Updated 04/17/24 @ 10:20 by Neri French) Difficulty urinating Empty sella turcica Polyarthralgia Raynauds phenomenon DDD (degenerative disc disease), cervical Mediastinal mass Asthma Chronic pain syndrome Costochondritis Thrombocytosis TMJ (temporomandibular joint syndrome) Numbness and tingling of left leg Tremors of nervous system Lyme disease Hypersomnia Snoring Hyperlipidemia HTN (hypertension) GERD (gastroesophageal reflux disease) Generalized headaches Back pain Arthritis Surgical History Mediastinal mass (11/08/23) History of mandibular surgery S/P cervical spinal fusion Hx of cervical spine surgery Hx of endoscopy Hx of colonoscopy History of salpingo-oophorectomy History of laparoscopy Hx of arthroscopy Hx of tubal ligation Hx of hysterectomy, total Hx of shoulder surgery Hx of knee surgery Family History Father Heart disease Cancer Prostate cancer Mother Dementia Congestive heart failure Social History Housing: House Are you a primary career technical supervisor to a significant other at home: No Do you presently have visiting nurse or other home services: No Alcohol intake: current Patient Tobacco Use Status: Tobacco use Unknown Tobacco use type: Cigarette Cigarettes Per Day: 2 Years Smoked: 26 e-Cigarette/Vaping Use: Never Used Second Hand Smoke Exposure: No service: No Current occupational status: disabled Current occupational exposures/hazards: No Cognitive needs: No Hearing needs: No Vision needs: No Review of Systems Const Denies fever(s) and Denies weight loss Card Denies chest pain Resp Denies cough and Denies hemoptysis GI Denies abdominal pain, Denies diarrhea and Denies nausea Musc Denies back pain Neuro Denies focal weakness Physical Exam Vital Signs: Last Vital Signs Pulse 86 05/15/24 11:22 BP 162/98 H 05/15/24 11:22 Pulse Ox 98 05/15/24 11:22 Oxygen Delivery Method Room Air 05/15/24 11:22 BMI result Body Mass Index 37.5 Repeat blood pressure is 140/80 mm Hg Const General: comfortable; No acute distress Orientation/consciousness: patient oriented x3 Eyes General: appearance normal, both eyes and all related structures Visual Torres: normal visual torres by confrontation Neck Neck: Yes supple and Yes no JVD Resp Effort & Inspection: normal respiratory effort and respiratory effort not decreased Auscultation: rhonchi Cardio Palpation: no palpable S3 and no palpable S4 Heart sounds: no rubs GI Inspection: Yes normal to inspection Palpation (GI): Soft to palpation Percussion: Yes normal to percussion Auscultation: normal bowel sounds General: Yes no CVA tenderness Back/Spine/Pelvis Back: no CVA tenderness Skin General skin exam: no petechiae and no purpura Neuro General: patient oriented x3 and no focal motor deficits Extrem General: No clubbing and No edema Results Reviewed Nephrology Results: Sodium 136 mmol/L (135-145) 04/25/24 Potassium 3.8 mmol/L (3.3-5.1) 04/25/24 Chloride 103 mmol/L (96-108) 04/25/24 Carbon Dioxide 24 mmol/L (22-29) 04/25/24 BUN 8 mg/dL (9-16) L 04/25/24 Creatinine 0.72 mg/dL (0.5-1.4) 04/25/24 Calcium 10.2 mg/dL (8.4-10.2) 04/25/24 Assessment & Plan Assessment & Plan (1) HTN (hypertension): Code(s): I10 - Essential (primary) hypertension Category: Medical Qualifiers: Hypertension type: primary hypertension Qualified Code(s): I10 - Essential (primary) hypertension (2) Hyponatremia: Code(s): E87.1 - Hypo-osmolality and hyponatremia Category: Medical Plan Middle-aged woman with hypertension and hyponatremia. Hyponatremia most likely due to decreased free water clearance secondary to use of SSRI. Currently serum sodium is normal. I will continue with sodium chloride tablets. Restrict oral free water intake. Agree with tapering SSRIs. Monitor serum sodium as needed. Hypertension. The blood pressure seems to be fluctuating widely. Given the history of dizziness I will proceed with a 24 hour ambulatory blood pressure monitoring. Based on the 20/4 hour ABP and we can readjust medications. Renal function is normal. Orders: Orders AMB 24 HR B/P Monitor PLACEMENT Today I10 - Essential (primary) hypertension Coding Level of Care Code New Pt Level 4 (83446) Diagnoses Primary hypertension I10 Hypertension type: primary hypertension Hyponatremia E87.1
[2024-05-15 11:22] VITALS: BP 162/98; PULSE 86; O2SAT 98; BMI 37.5
== END 2024-05-15 11:56 | disposition home or self-care (01) ==
PROVIDERS: PCP Family Medicine; Referring Provider Family Medicine; Visit Provider Internal Medicine Hypertension Specialist
DX: I10 Essential (primary) hypertension (principal); E87.1 Hypo-osmolality and hyponatremia
CPT/HCPCS: 99204

== ENCOUNTER → 2024-05-15 11:18 | Outpatient (BNVA) | payer OTHER, SELFPAY | PROVIDERS: PCP Family Medicine; Referring Provider Family Medicine; Visit Provider Internal Medicine Hypertension Specialist ==

== ENCOUNTER 2024-05-16 11:13 | Outpatient (AMB) | payer OTHER, SELFPAY ==
--- NOTE | 2024-05-16 11:17 | HO.NEPHOV_ITS ---
Vital Signs 05/16/24 11:20 Height 5 ft Weight 194 lb BMI 37.9 BP 150/100 H Blood Pressure Location Rt brachial Position Sitting Pulse 85 Pulse Source Pulse Oximeter Pulse Oximetry (%) 99 Oxygen Delivery Method Room Air Intake Visit Reasons: ABMP interpretation Mail Courier Required: No Accompanied by: Spouse Allergies Seasonal Allergies Allergy (Severe, Verified 05/16/24 11:17) Itchy Eyes lisinopril Adverse Reaction (Severe, Verified 05/16/24 11:17) Cough pregabalin [From Lyrica] Adverse Reaction (Severe, Verified 05/16/24 11:17) Shortness of Breath celecoxib [From Celebrex] Adverse Reaction (Intermediate, Verified 05/16/24 11:17) Hypertension varenicline [From Chantix] Adverse Reaction (Intermediate, Verified 05/16/24 11:17) Depression Medication List - Last Reconciled 05/16/24 by Jorge Vasquez MD albuterol sulfate 90 mcg/actuation 2 puffs inhalation Q6H PRN 30 days atorvastatin 40 mg PO BEDTIME 90 days bupropion HCl XL 300 mg PO QAM 90 days buspirone 15 mg (1.5 x 10 mg) PO BID cyclobenzaprine 10 mg PO TID cyclosporine 0.05% (Restasis) 1 drp ophthalmic (eye) Q12H diclofenac sodium 1% 4 grams topical QID PRN 30 days diltiazem HCl ER 300 mg PO DAILY fluoxetine 40 mg (2 x 20 mg) PO QAM 30 days fluticasone propion-salmeterol 250-50 mcg/dose (Wixela Inhub) 1 inh inhalation BID hydrocortisone 10 mg PO BID lorazepam (Ativan) 1 mg PO DAILY PRN magnesium gluconate (Mag-G) 27 mg PO BID meloxicam 15 mg PO QAM montelukast (Singulair) 10 mg PO QAM 90 days omega 2-lgl-pyz-fish oil 300-1,000 mg (Fish Oil) 1 cap PO QAM omeprazole 20 mg PO QAM 90 days propranolol ER 60 mg PO BEDTIME sodium chloride 1,000 mg PO BID 30 days telmisartan 80 mg PO QAM 90 days HPI Comments Details: 58-year-old woman with a history of empty sella turcica referred for hyponatremia. She was seen by endocrinology for empty sella turcica. Endocrine workup was done. Initial cortisol level was low cortisol stimulation test was normal. She is on sodium chloride 1 g b.i.d. and recent sodium levels have been normal. She was on fluoxetine 40 mg which has been gradually tapered down to 10 mg a day. She is currently drinking around 1.2 L of free water. She continues to have dizziness. The dizziness has been a chronic problem. She was seen by ENT and was cleared. She was given meclizine which she tried and there was no benefit therefore she was stopped meclizine. History of hypertension. She is on 2 antihypertensive medication. The blood pressure has been fluctuating widely. No syncopal episodes History of major depressive disorder. 05/16/2024. Underwent ABP. [facility] Medical History (Updated 04/17/24 @ 10:20 by Neri French) Difficulty urinating Empty sella turcica Polyarthralgia Raynauds phenomenon DDD (degenerative disc disease), cervical Mediastinal mass Asthma Chronic pain syndrome Costochondritis Thrombocytosis TMJ (temporomandibular joint syndrome) Numbness and tingling of left leg Tremors of nervous system Lyme disease Hypersomnia Snoring Hyperlipidemia HTN (hypertension) GERD (gastroesophageal reflux disease) Generalized headaches Back pain Arthritis Surgical History Mediastinal mass (11/08/23) History of mandibular surgery S/P cervical spinal fusion Hx of cervical spine surgery Hx of endoscopy Hx of colonoscopy History of salpingo-oophorectomy History of laparoscopy Hx of arthroscopy Hx of tubal ligation Hx of hysterectomy, total Hx of shoulder surgery Hx of knee surgery Family History Father Heart disease Cancer Prostate cancer Mother Dementia Congestive heart failure Social History Housing: House Are you a primary health care facilities inspector to a significant other at home: No Do you presently have visiting nurse or other home services: No Alcohol intake: current Patient Tobacco Use Status: Tobacco use Unknown Tobacco use type: Cigarette Cigarettes Per Day: 2 Years Smoked: 26 e-Cigarette/Vaping Use: Never Used Second Hand Smoke Exposure: No service: No Current occupational status: disabled Current occupational exposures/hazards: No Cognitive needs: No Hearing needs: No Vision needs: No Physical Exam Vital Signs: Last Vital Signs Pulse 85 05/16/24 11:20 BP 150/100 H 05/16/24 11:20 Pulse Ox 99 05/16/24 11:20 Oxygen Delivery Method Room Air 05/16/24 11:20 BMI result Body Mass Index 37.9 Office Procedures 24 B/P Monitor Interpretation Details: ABP M stage I hypertension. No nocturnal dipping. Systolic load elevated. No hypotensive episodes. CPT: 93437 24 Hour Blood Pressure Monitor Reading Procedure code (CPT) selection complete Results Reviewed Nephrology Results: Sodium 136 mmol/L (135-145) 04/25/24 Potassium 3.8 mmol/L (3.3-5.1) 04/25/24 Chloride 103 mmol/L (96-108) 04/25/24 Carbon Dioxide 24 mmol/L (22-29) 04/25/24 BUN 8 mg/dL (9-16) L 04/25/24 Creatinine 0.72 mg/dL (0.5-1.4) 04/25/24 Calcium 10.2 mg/dL (8.4-10.2) 04/25/24 Assessment & Plan Assessment & Plan (1) HTN (hypertension): Code(s): I10 - Essential (primary) hypertension Category: Medical Qualifiers: Hypertension type: primary hypertension Qualified Code(s): I10 - Essential (primary) hypertension (2) Hyponatremia: Code(s): E87.1 - Hypo-osmolality and hyponatremia Category: Medical Plan Middle-aged woman with hypertension and hyponatremia. Hyponatremia most likely due to decreased free water clearance secondary to use of SSRI. Currently serum sodium is normal. I will continue with sodium chloride tablets. Restrict oral free water intake. Agree with tapering SSRIs. Monitor serum sodium as needed. Hypertension. 24 hour ABP M reveals suboptimally controlled hypertension. No nocturnal dipping. No hypotensive episodes. Since blood pressure is suboptimal I will increase Cardizem from 240 mg up to 300 mg. The lightheadedness is not related to her hypertension. Renal function is normal. Orders: Orders AMB 24 HR B/P Monitor INTERPRETATION Today I10 - Essential (primary) hypertension Medications: Changed From diltiazem HCl ER Replaces Diltiazem 180 mg capsule 240 mg PO DAILY 30 caps 0RF To diltiazem HCl ER 300 mg PO DAILY 90 caps 1RF Coding Level of Care Code Est Pt Level 4 (08293) Diagnoses Primary hypertension I10 Hypertension type: primary hypertension Hyponatremia E87.1 CPT Codes - CPT: 45767 24 Hour Blood Pressure Monitor Reading ([id number])
[2024-05-16 11:20] VITALS: BP 150/100; PULSE 85; O2SAT 99; BMI 37.9
== END 2024-05-16 14:59 | disposition home or self-care (01) ==
PROVIDERS: PCP Family Medicine; Visit Provider Internal Medicine Hypertension Specialist
DX: I10 Essential (primary) hypertension (principal); E87.1 Hypo-osmolality and hyponatremia
CPT/HCPCS: 93790; 99213

== ENCOUNTER → 2024-05-16 11:13 | Outpatient (BNVA) | payer OTHER, SELFPAY | PROVIDERS: PCP Family Medicine; Visit Provider Internal Medicine Hypertension Specialist ==

== ENCOUNTER 2024-05-19 08:54 | Outpatient (RCR) | payer OTHER, SELFPAY ==
[2024-05-19 08:56] VITALS: BP 150/92; PULSE 88; O2SAT 98
== END 2024-05-19 09:51 | disposition home or self-care (01) ==
LOC: HO.PTCHIC 08:54
PROVIDERS: PCP Family Medicine; Visit Provider Otolaryngology
DX: R42 Dizziness and giddiness (principal)
CPT/HCPCS: 97162

== ENCOUNTER 2024-05-30 09:10 | Outpatient (AMB) | payer OTHER, SELFPAY ==
--- NOTE | 2024-05-30 09:22 | A.OFFPC_ITS ---
Vital Signs 05/30/24 09:25 Height 5 ft Weight 194 lb 2 oz BMI 37.9 BP 118/80 Blood Pressure Location Lt brachial Position Sitting Respiration 10 L Pulse 88 Pulse Source Pulse Oximeter Temp 98.1 F Temp Source Oral Pulse Oximetry (%) 97 Oxygen Delivery Method Room Air Intake Visit Reasons: F/U CHRONIC CONDITIONS Intake Note: f/u chronic conditions Allergies Seasonal Allergies Allergy (Severe, Verified 05/30/24 09:23) Itchy Eyes lisinopril Adverse Reaction (Severe, Verified 05/30/24 09:23) Cough pregabalin [From Lyrica] Adverse Reaction (Severe, Verified 05/30/24 09:23) Shortness of Breath celecoxib [From Celebrex] Adverse Reaction (Intermediate, Verified 05/30/24 09:23) Hypertension varenicline [From Chantix] Adverse Reaction (Intermediate, Verified 05/30/24 09:23) Depression Tobacco use date assessed: 01/30/24 Dental Screening Dental Screen Date: 01/30/24 HPI F/U CHRONIC CONDITIONS HPI Details 58 y/o female presents to f/u chronic co nditions. Last sodium level checked 04/25/24 and was fine. She continues to be on her salt tablets. She states she continues to eat a lot of salt. Blood pressure today 100/60, 88p. Pt notes ongoing issues with dysphagia - feels like there is something in her throat. Has not made an appt. with GI yet. Reports ongoing cough. [facility] Medical History (Updated 05/30/24 @ 10:23 by Neri French) Difficulty urinating Empty sella turcica Polyarthralgia Raynauds phenomenon DDD (degenerative disc disease), cervical Mediastinal mass Asthma Chronic pain syndrome Costochondritis Thrombocytosis TMJ (temporomandibular joint syndrome) Numbness and tingling of left leg Tremors of nervous system Lyme disease Hypersomnia Snoring Hyperlipidemia HTN (hypertension) GERD (gastroesophageal reflux disease) Generalized headaches Back pain Arthritis Surgical History Mediastinal mass (11/08/23) History of mandibular surgery S/P cervical spinal fusion Hx of cervical spine surgery Hx of endoscopy Hx of colonoscopy History of salpingo-oophorectomy History of laparoscopy Hx of arthroscopy Hx of tubal ligation Hx of hysterectomy, total Hx of shoulder surgery Hx of knee surgery Family History Father Heart disease Cancer Prostate cancer Mother Dementia Congestive heart failure Social History Housing: House Are you a primary nursing care attendant to a significant other at home: No Do you presently have visiting nurse or other home services: No Alcohol intake: current Patient Tobacco Use Status: Tobacco use Unknown Tobacco use type: Cigarette Cigarettes Per Day: 2 Years Smoked: 26 e-Cigarette/Vaping Use: Never Used Second Hand Smoke Exposure: No service: No Current occupational status: disabled Current occupational exposures/hazards: No Cognitive needs: No Hearing needs: No Vision needs: No Questionnaire Thrive Questionnaire Date Thrive assessed: 01/30/24 RAFAEL-7 AMB Questionnaire RAFAEL-7 Date RAFAEL - 7 assessed: 10/04/22 Source: Developed by Drs. Celso Blake, Sarah Abreu, Shravan Dominique and colleagues, with an educational allan from [employer]. Review of Systems Const Denies chills, Denies fatigue, Denies fever(s), Denies headache(s) and Denies weakness ENT Denies dizziness and Denies headache(s) Card Denies dyspnea Resp Reports cough, Denies dyspnea, Denies wheezing and Denies other (shortness of breath) Musc Denies numbness and Denies tingling Neuro Denies dizziness, Denies headache(s), Denies numbness, Denies tingling and Denies weakness Psych Denies anxiety and Denies depression Endo Denies fatigue Aller/Immun Denies wheezing Physical exam (Primary Care) Vital Signs: Last Vital Signs Temp 98.1 F 05/30/24 09:25 Pulse 88 05/30/24 09:25 Resp 10 L 05/30/24 09:25 BP 100/60 05/30/24 09:25 Pulse Ox 97 05/30/24 09:25 Oxygen Delivery Method Room Air 05/30/24 09:25 BMI result Body Mass Index 37.9 Tobacco/Smoking Status: Tobacco use Status Tobacco use date assessed 01/30/24 05/30/24 09:29 Patient Tobacco Use Status Tobacco use Unknown 05/30/24 09:29 Tobacco use type Cigarette 05/30/24 09:29 e-Cigarette/Vaping Use Never Used 05/30/24 09:29 Thrive Assessment: Date of Thrive Assessment Date Thrive assessed 01/30/24 05/30/24 09:29 Const General: well developed; No acute distress Nutritional Appearance: well nourished Orientation/consciousness: patient oriented x3 HENMT Head: Yes normocephalic and Yes atraumatic Eyes General: appearance normal, both eyes and all related structures Pupils: Equal, round and reactive pupils present EOM: EOMs intact bilaterally Resp Effort & Inspection: normal respiratory effort Auscultation: clear to auscultation bilaterally Cardio Rate: regular rate Rhythm: regular rhythm Heart sounds: S1 normal heart sound present, S2 normal heart sound present, no gallops, no murmurs and no rubs Neuro General: patient oriented x3 and gait normal Cranial nerves: Yes Equal, round and reactive pupils present Psych Affect: normal affect Coding Level of Care Code Est Pt Level 4 (96637) Diagnoses Post laminectomy syndrome M96.1 Empty sella turcica E23.6 Hyponatremia E87.1 Primary hypertension I10 Hypertension type: primary hypertension Dizziness R42 Dysphagia R13.10 Neoplasm of uncertain behavior of skin D48.5 Acute cough R05.1 Cough type: acute Assessment & Plan Assessment & Plan (1) Post laminectomy syndrome: Code(s): M96.1 - Postlaminectomy syndrome, not elsewhere classified Category: Medical Plan: Per Pain Management: Patient has exhausted greater than 6 months of conservative treatment including physical therapy, home exercise program, nonsteroidal anti-inflammatory medications, muscle relaxers and bracing without improvement of her symptoms They Discussed options for treatment including diagnostic interventional testing, epidural steroid injections, peripheral nerve stimulation with Sprint, RFA and more permanent neuromodulation. Informational pamphlets provided. Planned schedule for fluoroscopy guided SCS trial with Michaelro under sedation (2) Empty sella turcica: Code(s): E23.6 - Other disorders of pituitary gland Category: Medical Plan: There?was?question?of?adrenal?insufficiency. Patient?is?no?longer?on?hydrocortisone She?does?remain?on?salt?tablets?however (3) Hyponatremia: Code(s): E87.1 - Hypo-osmolality and hyponatremia Category: Medical Plan: Last?check?of?sodium?shows?her?levels?are?in?normal?range. She?is?weaning?down?her?fluoxetine?is?now?10?mg?daily Continue?salt?tablets (4) HTN (hypertension): Code(s): I10 - Essential (primary) hypertension Category: Medical Qualifiers: Hypertension type: primary hypertension Qualified Code(s): I10 - Essential (primary) hypertension Plan: Blood?pressure is?controlled?on?diltiazem?and?propranolol Continue?current?medication (5) Dizziness: Code(s): R42 - Dizziness and giddiness Category: Medical Plan: Ongoing?dizziness - improved Hyponatremia?and?some?hypokalemia?previously?were?likely?contributing?but?she?st ill?has?some?symptoms She?has?an?appointment?with?Neurology (6) Dysphagia: Code(s): R13.10 - Dysphagia, unspecified Category: Medical Plan: Has?been?referred?to?gastroenterology?and?they?have?reached?out?to?her.??She?has ?postpone?as?while?she?is?awaiting?spinal?cord?stimulator?procedure Encouraged?her?to?continue?her?omeprazole Prevent?reflux Follow-up?with?GI?when?possible (7) Neoplasm of uncertain behavior of skin: Code(s): D48.5 - Neoplasm of uncertain behavior of skin Category: Medical Plan: Small?patch?of?skin?over?left?eyebrow with?dryness?flakiness - possible?squamous?cell?neoplasm Referred?to?dermatology (8) Cough: Code(s): R05.9 - Cough, unspecified Category: Medical Qualifiers: Cough type: acute Qualified Code(s): R05.1 - Acute cough Plan: Ongoing?cough?and?she?feels?Wixela?has?not?change?this She?does?have?no?acid?reflux?and?dysphagia Encouraged?her?to?maintain?very?good?control?of?reflux,?particularly?at?bedtime. Orders: Referrals Dermatology Referral D48.5 - Neoplasm of uncertain behavior of skin Medications: Changed From fluoxetine 40 mg (2 x 20 mg) PO QAM 30 days 60 caps 2RF To fluoxetine 10 mg PO QAM 30 days 30 caps 2RF
[2024-05-30 09:25] VITALS: BP 118/80; PULSE 88; RESP 10; TEMP 36.7; O2SAT 97; BMI 37.9
== END 2024-05-30 10:24 | disposition home or self-care (01) ==
PROVIDERS: PCP Family Medicine; Visit Provider Family Medicine
DX: M96.1 Postlaminectomy syndrome, not elsewhere classified (principal); E23.6 Other disorders of pituitary gland; E87.1 Hypo-osmolality and hyponatremia; I10 Essential (primary) hypertension; R42 Dizziness and giddiness; R13.10 Dysphagia, unspecified; D48.5 Neoplasm of uncertain behavior of skin; R05.1 Acute cough

== ENCOUNTER → 2024-05-30 09:10 | Outpatient (BNVA) | payer OTHER, SELFPAY | PROVIDERS: PCP Family Medicine; Visit Provider Family Medicine ==

== ENCOUNTER 2024-09-01 09:05 | Outpatient (AMB) | payer OTHER, SELFPAY ==
--- NOTE | 2024-09-01 09:13 | A.SPINEOV_ITS ---
Vital Signs 09/01/24 09:29 Height 5 ft Weight 200 lb BMI 39.1 Intake Visit Reasons: postlaminectomy syndrome Intake Note: Mrs. Chi is here today c/o low back pain and would like to talk about a neurostimulator. Tumbling And Rolling Supervisor Required: No Allergies Seasonal Allergies Allergy (Severe, Verified 09/01/24 09:30) Itchy Eyes lisinopril Adverse Reaction (Severe, Verified 09/01/24 09:30) Cough pregabalin [From Lyrica] Adverse Reaction (Severe, Verified 09/01/24 09:30) Shortness of Breath celecoxib [From Celebrex] Adverse Reaction (Intermediate, Verified 09/01/24 09:30) Hypertension varenicline [From Chantix] Adverse Reaction (Intermediate, Verified 09/01/24 09:30) Depression Physical Exam Vital Signs: BMI result Body Mass Index 39.1 Assessment & Plan Assessment & Plan (1) Muscle weakness of proximal extremity: Code(s): M62.81 - Muscle weakness (generalized) Category: Medical Plan Dear KINJAL Berkowitz, Thank you for referring Lety to our office today. She is a pleasant, complicated, 58 y/o female who comes in today as a referral from our pain management colleagues for low back pain. Per their office note she has exhausted greater than 6 months of conservative treatment including physical therapy, home exercise program, non-steroidal anti-inflammatory medications, muscle relaxers and bracing. [facility] Insurance claim cannot be completed without neurosurgery evaluation. She does have quite a bit of low back pain, and some disclosed shooting pain into her right lateral lower extremity, terminating near the lateral knee. She reports this has been ongoing for about a year. However, after further discussion with the patient it sounds like she is having progressive proximal muscle weakness and difficulties with dexterity which have been worsening over the course of the last 2-3 years. She has difficulties with ambulation due to both weakness and pain, and states this is far outside of her baseline weakness that arose directly after her C4-7 ACDF which [place] [address] Anderson. She reports that she is essentially unable to button buttons or zip up a zipper anymore. In addition to this she reports a feeling of numbness/tingling in her bilateral hands, worse at the fingertips. She has been dropping objects around her home, including coffee cups and other household items. She denies any radicular pain shooting into her upper extremities. PMH: HTN, dry eyes / dry mouth, chronic pain, hyperlipidemia, asthma. Hx C4-67 A CDF completed by Dr. Anderson in 2008. Hx of TMJ with left jaw replacement (per patient report). Hx left shoulder replacement, removal mediastinal mass, Hx left meniscus tear with repair. Removal left ovary. Social hx: Denies any substance use. Medications: See meditech list. Allergies: See meditech list. Physical exam: The patient has 4/5 strength with left dorsiflexion, and bilateral iliopsoas testing. She also has 4/5 strength with bilateral biceps/triceps & deltoid testing. She has full strength with knee extension, knee flexion, plantar flexion, wrist flexion/extension, interossei testing. The patient has to brace herself on the chair in order to rise from a seated position, she ambulates very slowly but does not appear to have a spastic gait. She has to physically diamond picker her leg with her hands in order to stand up onto the stool for the examination table. Her bilateral patella reflexes at 3+ hyperreflexive, the rest of her reflexes are 2+ intact. (-) Burroughs's bilater ally, (-) clonus bilaterally, (-) Babinski's bilaterally. (-) bilateral straight leg raise. Imaging review: MRI lumbar spine completed here at [facility] shows diffuse spondylosis of the lumbar spine expected with the patient's age. The patient has a posterior disc bulge at L4-5 causing what I would call moderate right-sided foraminal stenosis at this level. In addition to this there is fairly signif icant degenerative disc disease at L5-S1, which appears to be causing moderate bilateral foraminal stenosis at this level. On thoracic MRI imaging there is evidence of previous ACDF at C6-7. There is not appear to be any T2 signal change or cord compression as a result of this. In addition to the imaging seen here at [facility] I reviewed her imaging from [facility] in 2019 which shows C4-7 ACDF. There is evidence of adjacent segment issue at C3-4 with a posterior disc bulge seen at C3-4, primarily right sided causing mild-moderate foraminal stensois at this level. No significant central canal stenosis seen. Impression: Lety is a pleasant, complicated, 58-year-old female who comes in today as a referral from our pain management colleagues. They are planning a Nevro spinal cord stimulator trial. I believe this is a very reasonable approach to deal with her chronic pain given her lumbar spine and thoracic spine imaging. There is no severe lumbar / thoracic central canal or foraminal stenosis, and no signs of instability on imaging. My only concern regarding this patient is that she has a history of multilevel cervical fusion, and has progressive proximal muscle weakness alongside bilateral hand numbness/tingling and progressive difficulties with ambulation / dexterity. 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 In order to best serve this patient I believe we should have a MRI of the cervical spine completed to rule out central canal impingement prior to implantable device placement, as this could very well be the cause of her progressive symptoms as outlined previously. If the MRI of the cervical spine shows no acute pathology contributing to her symptoms, then I believe continuing to pursue conservative measures with our colleagues in pain management via SCS Nevro trial would be her best bet. I do not believe surgery in her lumbar or thoracic spine we will be beneficial for her at this time. Thank you for allowing us to care for your patient. The total time spent with this visit with this patient was 65 minutes reviewing history, physical exam, MRI imaging review, and implementation of treatment plan or further diagnostic testing El Rodriguez MD,PhD [facility] Coding Level of Care Code New Pt Level 5 (71710) Diagnoses Muscle weakness of proximal extremity M62.81
[2024-09-01 09:29] VITALS: BMI 39.1
== END 2024-09-01 09:59 | disposition home or self-care (01) ==
PROVIDERS: PCP Family Medicine; Referring Provider Registered Nurse Emergency; Visit Provider Physician Assistant
DX: M62.81 Muscle weakness (generalized) (principal)
CPT/HCPCS: 99205

== ENCOUNTER → 2024-09-01 09:05 | Outpatient (BNVA) | payer OTHER, SELFPAY | PROVIDERS: PCP Family Medicine; Referring Provider Registered Nurse Emergency; Visit Provider Physician Assistant ==

== ENCOUNTER → 2024-09-16 09:40 | Outpatient (BNV) | payer OTHER, SELFPAY | PROVIDERS: PCP Family Medicine; Visit Provider Radiology Diagnostic Radiology | DX: Z98.1 Arthrodesis status (principal) | CPT/HCPCS: 72141 ==

== ENCOUNTER 2024-09-16 09:50 | Outpatient (REF) | payer OTHER, SELFPAY ==
--- NOTE | ~2024-09-16 | MR_ITS ---
EXAMINATION: MR CERVICAL SPINE WITHOUT CONTRAST CLINICAL INFORMATION: Progressive proximal muscle weakness. Upper back pain, arm and leg weakness. Cervical fusion 2008 COMPARISON: Cervical spine x-ray 07/30/2008 and MRI cervical spine 04/20/2008. TECHNIQUE: MRI of the cervical spine was obtained using routine sequences without contrast. FINDINGS: There is mild straightening of cervical lordosis. The vertebral heights and alignment is normal. There is disc prostheses at C4-5, C5-6, C6/7 and C7-T1 disc levels disc levels for fusion. At C2-3 disc level there is moderate narrowing of left neural foramina from facet joint and uncovertebral hypertrophic changes. There is no disc bulge, herniation or spinal canal stenosis. At C3-4 disc level there is posterior spondylosis/bulge complex flattening the ventral thecal sac. There is mild left neural foraminal narrowing from uncovertebral hypertrophic changes. The right neural foramina is patent. There is mild AP canal narrowing. At C4-5 disc level there is disc prosthesis for fusion. The spinal canal is capacious. The neural foramina are patent bilaterally. At C5-6 disc level there is disc prosthesis without spinal canal stenosis. The neural foramina patent bilaterally. At C6-7 disc level there is a disc prosthesis with a capacious thecal sac. The neural foramina are patent bilaterally. At C7-T1 disc level there is disc prosthesis with capacious thecal sac. There is mild narrowing of right neural foramina. The cord signal in the cord caliber appears normal. The paravertebral soft tissues are normal. The bone marrow signal is normal. MR/MR cervical spine wo con IMPRESSION: Disc prosthesis at C4-5, C5-6, C6-7 and C7-T1 disc levels for fusion. There is a disc bulge/spondylosis complex C3-4 disc level effacing the ventral thecal sac and resulting in mild AP canal stenosis. The neural foramina are patent bilaterally. Mild narrowing of right neural foramina at C7-T1 disc level secondary to facet joint hypertrophy Electronically signed by: Ricki Shaffer MD 09/16/2024 02:16 PM EST
--- OUTSIDE RECORDS SUMMARY | 2024-09-16 10:56 | XMS_ITS | Clinical Summary ---
Author Organization [employer] [facility] ity Address [address] [place] [address] Care Team Providers Care Vendor Relationship Manager Name Role Phone Amrik Mendoza MD Primary Care Provider Surgical History Surgery Date Site/Laterality Comments OTHER SURGICAL HISTORY PROCEDURE: MO OSTEOTOMY SPINE PST/PSTLAT APPR 1 VRT SGM CRV; COMMENT: surgery X 2 OTHER SURGICAL HISTORY 1993 PROCEDURE: HISTORICAL TOTAL HYSTERECTOMY W/O BSO; COMMENT: left ovary TUBAL LIGATION PROCEDURE: HISTORICAL TUBAL LIGATION OTHER SURGICAL HISTORY 1999 PROCEDURE: MO ARTHROSCOPY TEMPOROMANDIBULAR JOINT SURGICAL; COMMENT: left SALPINGOOPHORECTOMY 02/08/11 PROCEDURE: MO LAPAROSCOPY W/RMVL ADNEXAL STRUCTURES; COMMENT: Serous cystadenoma on right SHOULDER SURGERY 02/2014 Left PROCEDURE: HISTORICAL SHOULDER SURGERY KNEE SURGERY 02/2016 Left PROCEDURE: HISTORICAL KNEE SURGERY; COMMENT: meniscus OTHER SURGICAL HISTORY 09/14/2011 PROCEDURE: OUTSIDE ENDOSCOPY; COMMENT: normal. duodenal bx neg for Celiac disease COLONOSCOPY 09/14/2011 PROCEDURE: OUTSIDE COLONOSCOPY; COMMENT: 3 tubular adenomas COLONOSCOPY 11/09/2017 PROCEDURE: OUTSIDE COLONOSCOPY; COMMENT: 5 adenomatous polyps, diverticulosis Medical History Medical History Date Comments Pure hypercholesterolemia 10/03/2006 DX:Pur e hypercholesterolemia; COMMENT: 10/03 Tobacco use disorder 09/28/2006 DX:Tobacco use disorder Depressive disorder, not els ewhere classified 05/06/2006 DX:Depressive disorder, not elsewhere classified Essential hypertension, benign 12/29/2005 D X:Essential hypertension, benign Temporomandibular joint diso rders, unspecified 12/29/2005 DX:Temporomandibular joint disorders, unspecified; COMMENT: arthroscopy left Irritable bowel syndrome 12/29/2005 DX:Irri table bowel syndrome Unspecified asthma(493.90) 12/29/2005 DX:Un specified asthma(493.90); COMMENT: Mild, rare albuterol use Ovarian cystic mass 12/08/2010 DX:Ovarian c ystic mass; COMMENT: removed Chronic headache disorder 08/01/2011 DX:Chr onic headache disorder Anxiety 11/20/2014 DX:Anxiety Gum disease 12/08/2014 DX:Gum disease; COMMENT: Per dentist 2014 Degenerative arthritis of cervical spine DX:Degenerative arthritis of cervical spine Back pain DX:Back pain GERD (gastroesophageal reflux disease) DX:GERD (gastroesophageal reflux disease) Numbness and tingling of left leg DX:Numbness and tingling of left leg Lyme disease DX:Lyme disease Osteoarthritis DX:Osteoarthriti s Family History Medical History Relation Name Comments Basal cell carcinoma Father Coronary artery disease Father Other cancer Father kidney - a t age 84 Prostate cancer Father 50's Dementia Mother 60s Heart failure Mother Breast cancer Neg Hx Colon cancer Neg Hx Ovarian cancer Neg Hx Uterine cancer Neg Hx Relation Name Status Comments Brother Alive Father (Age 84) kidney can cer Mother Sister Alive Social History Tobacco Use Types Packs/Day Years Used Date Smoking Tobacco: Every Day Cigarettes Smokeless Tobacco: Never Alcohol Use Standard Drinks/Week Comments Yes 0 (1 standard drink = 0.6 oz pur e alcohol) Sex and Gender Information Value Date Recorded Sex Assigned at Not on file Gender Identity Not on file Sexual Orientation Not on file Obstetrics History Last Filed Vital Signs Vital Sign Reading Time Taken Comments Blood Pressure 122/84 03/09/2022 10:57 AM EDT Pulse 92 03/09/2022 10:31 AM EDT Temperature - - Respiratory Rate - - Oxygen Saturation - - Inhaled Oxygen Concentration - - Weight 87.5 kg (193 lb) 03/09/2022 10:31 AM EDT Height 152.4 cm (5') 03/09/2022 10:31 AM EDT Body Mass Index 37.69 03/09/2022 10:31 AM EDT Plan of Treatment Health Maintenance Due Date Last Done Comments Pneumococcal Vaccine: Pediatrics (0 to 5 Years) and At-Risk Patients (6 to 64 Years) (1 of 2 - PCV) 12/29/1969 Zoster Vaccines (1 of 2) 12/29/2013 Breast Cancer Screening 05/18/2019 05/18/2017 Cholesterol Screening (Lipid Panel) 07/30/2022 Colorectal Cancer Screening: Colonoscopy 07/30/2022 Depression Screening 07/30/2022 HIV Screening 07/30/2022 Hepatitis C Screening 07/30/2022 Social Influencers of Health Screening 07/30/2022 Hypertension/CHF/CAD Annual BMP Blood Test 08/06/2022 DTaP,Tdap,and Td Vaccines (3 - Td or Tdap) 10/16/2022 10/16/2012, 11/15/2001 RSV Immunization Patients 60+ Years Old (1 - Risk 60-74 years 1-dose series) 2023 COVID-19 Vaccine (3 - 2023- season) 2024 12/14/2020, 11/21/2020 Influenza Vaccine (#1) 2024 8, 06/12/2017, 05/22/2016, Additional history exists HIB Vaccines Aged Out No longer eligi ble based on patient's age to complete this topic HPV Vaccines Aged Out No longer eligi ble based on patient's age to complete this topic Hepatitis A Vaccines Aged Out No long er eligible based on patient's age to complete this topic Hepatitis B Vaccines Aged Out No long er eligible based on patient's age to complete this topic IPV Vaccines Aged Out No longer eligi ble based on patient's age to complete this topic MMR Vaccines Aged Out No longer eligi ble based on patient's age to complete this topic Meningococcal ACWY Vaccine Aged Out N o longer eligible based on patient's age to complete this topic RSV Immunization Patients Under 20 months Aged Out No longer eligible based on patient's age to complete this topic Varicella Vaccines Aged Out No longer eligible based on patient's age to complete this topic Procedures Procedure Name Priority Date/Time Associated Diagnosis Comments SCR MAMMO BI INCL CAD Routine 05/18/2017 3:00 PM EDT Encounter for screening mammogram for malignant neoplasm of breast from Last 3 Months or Most Recently Relevant to Health Maintenance Results * SCR MAMMO BI INCL CAD (05/18/2017 3:00 PM EDT) Anatomical Region Laterality Modality Radiographic Rosita ging 02/21/2017 1:38 PM EDT Narrative 05/19/2017 3:03 PM EDT This is a summary report. The complete report is available in the patient's medical record. If you cannot access the medical record, please contact the sending organization for a detailed fax or copy. Full field digital screening mammography, reviewed with CAD and compared to previous. ??The breasts are composed of fatty and fibroglandular tissue. ??No suspicious mass, architectural distortion or suspicious calcifications are identified. IMPRESSION: : No mammographic evidence of malignancy. BIRADS 1-Negative; N. 5 year breast cancer risk assessment 0.9 % Lifetime breast cancer risk assessment 6.8 % Breast cancer risk category Low (<15%) Procedure Note Jack Miner MD - 09/28/2023 This is a summary report. The complete report is available in thepatient's medical record. If you cannot access the medical record, pleasecontact the sending organization for a detailed fax or copy. Full field digital screening mammography, reviewed with CAD and comparedto previous. The breasts are composed of fatty and fibroglandular tissue.No suspicious mass, architectural distortion or suspicious calcificationsare identified. IMPRESSION: : No mammographic evidence of malignancy. BIRADS 1-Negative; N. 5 year breast cancer risk assessment 0.9 % Lifetime breast cancer risk assessment 6.8 % Breast cancer risk category Low (<15%) Lalit GONZALES IMG XR PROCEDURES from Last 3 Months or Most Recently Relevant to Health Maintenance Care Teams Vendor Relationship Manager Relationship Specialty Start Date End Date Amrik Mendoza MD [address] [place] [address] Dr Tra MA PCP - General 10/23/23
== END 2024-09-16 09:51 | disposition home or self-care (01) ==
LOC: HO.MRI 09:50
PROVIDERS: PCP Family Medicine; Visit Provider Physician Assistant
DX: M62.81 Muscle weakness (generalized) (principal)
CPT/HCPCS: 72141

== ENCOUNTER 2024-09-22 09:04 | Outpatient (AMB) | payer OTHER, SELFPAY ==
--- NOTE | 2024-09-22 09:23 | HO.SPINEOV ---
Intake Visit Reasons: MRI f/u Intake Note: Mrs. Chi is here today to F/u on the results to her MRI. 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 Required: No Allergies Seasonal Allergies Allergy (Severe, Verified 09/22/24 09:24) Itchy Eyes lisinopril Adverse Reaction (Severe, Verified 09/22/24 09:24) Cough pregabalin [From Lyrica] Adverse Reaction (Severe, Verified 09/22/24 09:24) Shortness of Breath celecoxib [From Celebrex] Adverse Reaction (Intermediate, Verified 09/22/24 09:24) Hypertension varenicline [From Chantix] Adverse Reaction (Intermediate, Verified 09/22/24 09:24) Depression Assessment & Plan Assessment & Plan (1) Muscle weakness of proximal extremity: Code(s): M62.81 - Muscle weakness (generalized) Category: Medical Plan Lety comes in today in follow up to review her MRI of the cervical spine. To recap Lety was previously evaluated in clinic and had proximal muscle weakness during examination. I reviewed her MRI of the cervical spine from [facility] in 2020 during her last visit which showed some potential for adjacent segment degeneration at C3-4. Overall the repeat MRI looks stable / good. She has evidence of fusion C4-T1. The C3-4 space shows early signs of degeneration but it is not clinicall significant. No significant central canal or foraminal stenosis at these levels. The patient strength deficits are most likely her baseline since surgery. I believe the patient is a good candidate for Nevro spinal cord stimulator trial and should proceed with our colleagues in pain management. El Rodriguez MD,PhD [facility] Coding Level of Care Code Est Pt Level 2 (18754) Diagnoses Muscle weakness of proximal extremity M62.81
== END 2024-09-22 10:04 | disposition home or self-care (01) ==
PROVIDERS: PCP Family Medicine; Visit Provider Physician Assistant
DX: M62.81 Muscle weakness (generalized) (principal)
CPT/HCPCS: 99212

== ENCOUNTER 2024-11-21 13:17 | Outpatient (AMB) | payer OTHER, SELFPAY ==
--- NOTE | 2024-11-21 13:21 | MHC.OFFVIS ---
Vital Signs 11/21/24 13:25 11/21/24 13:46 Height 5 ft Weight 203 lb 4 oz BMI 39.7 BP 183/108 H 178/103 H Blood Pressure Location Rt brachial Lt brachial Position Sitting Sitting Pulse 82 Pulse Source Pulse Oximeter Pulse Oximetry (%) 100 Oxygen Delivery Method Room Air Intake Visit Reasons: FU back pain (patient request) Intake Note: Pain today 04/05 [employer] Program Coordinator Required: No Accompanied by: Self / Same As Patient Allergies Seasonal Allergies Allergy (Severe, Verified 11/21/24 13:26) Itchy Eyes lisinopril Adverse Reaction (Severe, Verified 11/21/24 13:26) Cough pregabalin [From Lyrica] Adverse Reaction (Severe, Verified 11/21/24 13:26) Shortness of Breath celecoxib [From Celebrex] Adverse Reaction (Intermediate, Verified 11/21/24 13:26) Hypertension varenicline [From Chantix] Adverse Reaction (Intermediate, Verified 11/21/24 13:26) Depression HPI Comments Details: The patient is a 58-year-old female presenting with chronic back that radiates down the left leg. Her lumbar pain commenced approximately one year ago, with the pain radiating from the middle of her lower back to her left leg. This has been associated with occasional numbness and a pins and needles sensation. 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 She continues to have limited success with cyclobenzaprine and has faced challenges with her current insurance in relation to securing coverage for further SCS trial. She was evaluated by [facility] in the past with no plan for surgical intervention. The patient is considering changing her insurance to access more comprehensive coverage. - Onset & Timing: Initiated approximately one year ago. - Quality & Character: Described as aching with pins and needles sensation. - Primary Location: Middle of the back. - Areas of Radiation: Down the left leg, stops below the knee. - Exacerbating Factors: Reaching and certain movements. - Relieving Factors: Attempted use of muscle relaxers and OTC analgesics with minimal efficacy. - Functional Impact: Limited ability to walk and perform household activities; impacts hygiene maintenance and caregiving tasks. - Affect: Pain impacts daily function and ability to perform activities such as walking, household work, and playing with grandchildren. - Analgesia: Currently using cyclobenzaprine with Tylenol; reports these are not providing significant relief. - Adverse Effects: No specific adverse effects from the medication reported. - Activities of Daily Living: Pain restricts freedom of movement and ability to perform hygiene tasks, impacting quality of life. - Aberrant Drug Related Behaviors: No aberrant behaviors reported. Prior: Lety presents back to the office today for follow up, review of recent MRI MRI reviewed, results as per below Continues with mid and lower back pain, rated as 8 of 10. Has exhausted conservative therapy including PT, home exercise program, nonsteroidal anti-inflammatory medications, muscle relaxers, injections all without improvement of her pain Currently awaiting evaluation by endocrinology for evaluation of hyponatremia. Prior: Patient presents to the office today for follow up lower back pain report some improvement in the pain to her PSIS since injections 2 weeks ago nut midline thoracic and lower back pain persist and now feel worse endorses continued feeling of BLE heaviness and worsening numbness denies red flag symptoms including new loss of bowel, bladder or saddle anesthesia Prior: Telephone visit completed today for follow up. Patient underwent bilateral therapeutic sacroiliac joint injections 1 day ago Reports minimal improvement in pain, function and mobility since the injections. Pain today rated as 6/10. States prior to injections pain was 7/10. Prior: Lety is a very pleasant 58 year old female who presents to the office today for evaluation management of her chronic lower back and midline thoracic back pain Patient reports that she has been suffering with these pains for several years, the lower back pain has worsened over the last 3 months Today she is requesting to focus on the lower back pain Pain today is rated as 7/10, constant Pain bilateral PSIS, with radiation to posterior thighs and bilateral groin Worse with standing, sitting and climbing stairs Pain does not radiate past level of the knee Denies red flag symptoms including new loss of bowel, bladder or saddle anesthesia PT in the past has not been helpful. For the last 2 months she has been doing HEP focus on bilateral SIJ. No improvement with the HEP. Using SIJ belt, feels some mild relief when wearing it but pain remains severe with stairs. Patient has tried prescription NSAIDS, muscle relaxers, topical medications and lidocaine patches for greater than 6 months without improvement. She will be starting Wegovy for weight loss soon. Hoping that this will improve her pain. Currently being tapered off of her Prozac with plan to start Cymbalta. She was advised that this may also improve her pain. In terms of muscle damage condition is described as stabbing, tingling, pulling, tugging, pinching, cramping, tiring, sore, hurting, aching, punishing, spreading, tight, squeezing. Pain is negatively impacting patient's enjoyment of life, normal function, ability to perform activities of daily living, sleep and walking Patient has also looking to be treated for chronic thoracic back pain. She previously underwent sterile injections at T3, T4-T7 and T8 with very short-term relief. She had trigger point injections were which were also not help. No relief with NSAIDs, [id number] medications, topical medications and muscle relaxers. [facility] Medical History (Updated 09/01/24 @ 10:21 by JANET Soto) Difficulty urinating Empty sella turcica Polyarthralgia Raynauds phenomenon DDD (degenerative disc disease), cervical Mediastinal mass Asthma Chronic pain syndrome Costochondritis Thrombocytosis TMJ (temporomandibular joint syndrome) Numbness and tingling of left leg Tremors of nervous system Lyme disease Hypersomnia Snoring Hyperlipidemia HTN (hypertension) GERD (gastroesophageal reflux disease) Generalized headaches Back pain Arthritis Surgical History Mediastinal mass (11/08/23) History of mandibular surgery S/P cervical spinal fusion Hx of cervical spine surgery Hx of endoscopy Hx of colonoscopy History of salpingo-oophorectomy History of laparoscopy Hx of arthroscopy Hx of tubal ligation Hx of hysterectomy, total Hx of shoulder surgery Hx of knee surgery Family History Father Heart disease Cancer Prostate cancer Mother Dementia Congestive heart failure Social History Housing: House Are you a primary neonatal intensive care unit nurse to a significant other at home: No Do you presently have visiting nurse or other home services: No Alcohol intake: current Patient Tobacco Use Status: Tobacco use Unknown Tobacco use type: Cigarette Cigarettes Per Day: 2 Years Smoked: 26 e-Cigarette/Vaping Use: Never Used Second Hand Smoke Exposure: No service: No Current occupational status: disabled Current occupational exposures/hazards: No Cognitive needs: No Hearing needs: No Vision needs: No Review of Systems Const Details: - Musculoskeletal: Reports pain in the middle back radiating to the left leg, numbness, and tingling; denies pain radiation to the foot. - Genitourinary: Reports difficulty with reaching during toileting due to pain. - Neurological: Reports numbness and pins and needles sensation in the left leg. Physical Exam Vital Signs: Last Vital Signs Pulse 82 11/21/24 13:25 BP 178/103 H 11/21/24 13:46 Pulse Ox 100 11/21/24 13:25 Oxygen Delivery Method Room Air 11/21/24 13:25 BMI result Body Mass Index 39.7 General: awake, alert, oriented. Answers questions appropriately. Fully engaged in examination. Skin: warm, dry, intact HEENT: Normocephalic. Hearing intact. Cardiac: External chest normal in appearance. Respiratory: No cough, audible wheezing or stridor. Abdomen: without gross distension. MS: No obvious swelling or deformities. Neurological: Oriented to person, place, time and situation. Thought process intact. No gait abnormalities appreciated. Psychiatric: Appropriate mood and affect. Good judgment and insight. Results Reviewed Results Reviewed: 04/10/2024 MRI OF THE THORACIC SPINE WITHOUT CONTRAST MRI OF THE LUMBAR SPINE WITHOUT CONTRAST CLINICAL INFORMATION: Chronic pain syndrome. Postlaminectomy syndrome. Bilateral lower extremity weakness and numbness feeling 6 months of conservative treatment. COMPARISON: Thoracic spine MRI September 08, 2021. TECHNIQUE: Multiplanar multisequence MR imaging of the thoracic and lumbar spine obtained without contrast. FINDINGS: THORACIC SPINE MRI: There are 12 rib bearing thoracic type vertebral bodies. Mild rightward convex sclerotic curvature of the upper thoracic spine. Thoracic alignment is otherwise maintained. There is multilevel degenerative disc disease and hypertrophic facet arthropathy throughout the thoracic spine that remains similar to the September 08, 2021 thoracic spine MRI. Small paracentral disc protrusions continue to mildly narrow the central canal at the T6-T7, T7-T8, and T8-T9 levels. There is no high-grade foraminal stenosis within the thoracic spine. There are partially imaged postoperative changes following ACDF at C6-C7. There is no thoracic cord compression and there are no thoracic cord signal changes when accounting for artifact. LUMBAR SPINE MRI: There are 5 nonrib-bearing lumbar-type vertebral bodies. S1 is lumbarized, showing rudimentary disc with S2. Grade 1 retrolisthesis of L2 on L3. There is severe disc line loss at L5-S1 and there is mild disc volume loss at the remaining lumbar levels. There is disc desiccation at all lumbar levels. There are Modic type II endplate signal changes at L5-S1. Modic type I endplate signal changes at L4-L5. No additional bone marrow edema. No acute fractures. Conus terminates at the L1-L2 level. There is bilateral perinephric stranding. L1-L2: A small shallow left paracentral disc protrusion minimally indents the ventral thecal sac without central canal stenosis. There is no foraminal stenosis. L2-L3: Grade 1 retrolisthesis. Shallow left paracentral disc protrusion minimally indents the ventral thecal sac. No foraminal stenosis. L3-L4: There is a left paracentral/left lateral disc protrusion that contacts the traversing left L4 nerve root within the left subarticular zone and results in [id number] left-sided foraminal stenosis without exiting nerve root compression. No central canal and no right foraminal stenosis. L4-L5: There is a large right foraminal/extraforaminal disc protrusion that results in moderate to severe right-sided foraminal stenosis and mass effect on the foraminal and extra foraminal segments of the exiting right L4 nerve root. Left lateral disc osteophyte results in moderate left-sided foraminal stenosis and mass effect on the exiting left L4 nerve root at the left foraminal/extraforaminal junction. There is no central canal stenosis. L5-S1: Shallow disc protrusion minimally indents the ventral thecal sac. Disc osteophyte and advanced facet arthropathy result in moderate to severe bilateral foraminal stenosis with compression of the exiting L5 nerve roots bilaterally. IMPRESSION: * Mild to moderate thoracic spondylosis. No severe central canal stenosis and no severe foraminal stenosis within the thoracic spine. There are partially imaged postoperative changes following ACDF at C6-C7. * At L3-L4, there is a left paracentral/left lateral disc protrusion that contacts the traversing left L4 nerve root within the left subarticular zone and results in [id number] left-sided foraminal stenosis without exiting nerve root compression. * At L4-L5, there is a large right foraminal/extraforaminal disc protrusion that results in moderate to severe right-sided foraminal stenosis and mass effect on the foraminal and extra foraminal segments of the exiting right L4 nerve root. Left lateral disc osteophyte results in moderate left-sided foraminal stenosis and mass effect on the exiting left L4 nerve root at the left foraminal/extraforaminal junction. * At L5-S1, multifactorial degenerative changes result in moderate to severe bilateral foraminal stenosis with compression of the exiting L5 nerve roots bilaterally. * S1 shares a rudimentary disc with S2. 02/01/2024 XR/XR lumbar spine 2-3V FINDINGS: Mild dextroscoliosis of the lumbar spine. Surgical clips in the pelvis. Facet arthritis in the lower lumbar spine. Moderate multilevel lumbar spondylosis with moderate loss of disc space height at L2-L3, L3-L4, L4-L5 and marked loss of disc space at L5-S1. IMPRESSION: Moderate multilevel lumbar spondylosis. 09/08/2021 MRI Thoracic Assessment & Plan Assessment & Plan (1) Chronic pain syndrome: Code(s): G89.4 - Chronic pain syndrome Category: Medical (2) Myofascial pain syndrome of thoracic spine: Code(s): M79.18 - Myalgia, other site Category: Medical (3) Thoracic back pain: Code(s): M54.6 - Pain in thoracic spine Category: Medical (4) Post laminectomy syndrome: Code(s): M96.1 - Postlaminectomy syndrome, not elsewhere classified Category: Medical (5) Lumbar spondylosis: Code(s): M47.816 - Spondylosis without myelopathy or radiculopathy, lumbar region Category: Medical (6) Myofascial pain syndrome of thoracic spine: Code(s): M79.18 - Myalgia, other site Category: Medical (7) Thoracic back pain: Code(s): M54.6 - Pain in thoracic spine Category: Medical (8) Post laminectomy syndrome: Code(s): M96.1 - Postlaminectomy syndrome, not elsewhere classified Category: Medical Plan The plan involves administering a steroid injection to manage her chronic pain. This intervention may offer alleviation, providing temporary improvement until she secures more favorable insurance coverage for additional treatments. Surgical consultation will be revisited should this intervention prove ineffective. The patient is encouraged to explore insurance options more likely to approve broader pain management strategies. The aim is to optimize pain relief and restore functionality within the confines of current resources, while considering surgical intervention as a secondary plan. I discussed the challenges posed by her current insurance and the prospective benefit of the steroid injection to provide relief. We reviewed the option of consulting with a neurosurgeon if the injection fails to yield satisfactory outcomes. I outlined the possibility of repeating the injections for sustained relief until new insurance options can be secured. The patient was advised on the importance of evaluating insurance options to ensure better coverage for her condition. The risks and benefits of the steroid injection were discussed, and she consented to the procedure. We agreed to proceed with this plan and revisited surgical options based on the response to intervention. - Proceed with the planned fluoroscopy guided Left L4-5 TFESI with local anesthetic for pain relief. - Consider reviewing available insurance options for better pain management coverage. - Follow up for reassessment after the injection to determine effectiveness. - Monitor symptoms and report any new or worsening conditions. - Schedule an appointment for surgical consultation if necessary after the outcomes of the injection. Patient was informed and verbally consented to the use of an ambient scribe for clinic note documentation during this visit. Coding Level of Care Code Est Pt Level 3 (34752) Complex EM visit Add On G2211 Diagnoses Chronic pain syndrome G89.4 Myofascial pain syndrome of thoracic spine M79.18 Thoracic back pain M54.6 Post laminectomy syndrome M96.1 Lumbar spondylosis M47.816
[2024-11-21 13:25] VITALS: BP 183/108; PULSE 82; O2SAT 100; BMI 39.7
[2024-11-21 13:46] VITALS: BP 178/103
== END 2024-11-21 14:06 | disposition home or self-care (01) ==
LOC: HO.PMC 13:18
PROVIDERS: PCP Family Medicine; Visit Provider Registered Nurse Emergency
DX: G89.4 Chronic pain syndrome (principal); M79.18 Myalgia, other site; M54.6 Pain in thoracic spine; M96.1 Postlaminectomy syndrome, not elsewhere classified; M47.816 Spondylosis without myelopathy or radiculopathy, lumbar region
CPT/HCPCS: 99213

== ENCOUNTER 2024-12-18 10:22 | Outpatient (REF) | payer OTHER, SELFPAY ==
--- OUTSIDE RECORDS SUMMARY | 2024-12-18 13:07 | XMS_ITS | Encounter Summary ---
Author Organization [facility] Address [address] [place] [address] Care Team Providers Care Instructional Technology Coordinator Name Role Phone Maricruz Winter MD Primary Care Provider Un available Isha Armstrong MD Primary Care Provider [phone] Cheryl Gallego MD Primary Care Prov ider [facility], Pcp Primary Care Provider Amrik Chadwick MD Unavailable Puma Sy MD Unavailable Maritza Van NP Unavailable Amrik Chadwick MD Primary Care Provider Unav ailable Encounter Details Date Type Department Care Team Description 03/04/2020 Pt. Non Urgent Medic al Question Physiatry - [address] [address] Cooper Smith DO Social History Tobacco Use [...] on filedocumented in this encounter Care Teams Instructional Technology Coordinator Relationship Specialty Start Date End Date Maricruz Winter MD PCP - General 03/30/11 11/23/21 Isha Armstrong MD [address] [place] [address] PCP - General Internal Medicine 11/24/21 03/02/22 Cheryl Gallego MD [address] [place] [address] PCP - General Internal Medicine 03/03/22 06/14/23 [facility], [place] [address] PCP - General Internal Medicine 06/15/23 10/22/23 Amrik Mendoza MD [address] [place] [address] PCP - General Family Practice 10/23/23 Amrik Mendoza MD [address] [place] [address] Primary Care Physician Family Practice 10/23/23 Puma Gordon MD [address] [place] [address] Lung Cancer Wedding Planner 10/23/23 Maritza Van NP [address] [place] [address] Referring Physician Nurse Practioner Adult Health 10/23/23 documented as of this encounter
--- OUTSIDE RECORDS SUMMARY | 2024-12-18 13:07 | XMS_ITS | Encounter Summary ---
Author Organization [facility] Address [address] [place] [address] Care Team Providers Care Salesperson Hearing Aids Name Role Phone Maricruz Winter MD Primary Care Provider Un available Isha Armstrong MD Primary Care Provider [phone] Cheryl Gallego MD Primary Care Prov ider [facility], Pcp Primary Care Provider Amrik Chadwick MD Unavailable Puma Sy MD Unavailable Maritza Van NP Unavailable Amrik Chadwick MD Primary Care Provider Unav ailable Encounter Details Date Type Department Care Team Description 02/17/2020 Hospital Medical Records [address] [place] [address] Cooper Smith DO Social History Tobacco Use [...] on filedocumented in this encounter Care Teams Salesperson Hearing Aids Relationship Specialty Start Date End Date Maricruz Winter MD PCP - General 03/30/11 11/23/21 Isha Armstrong MD [address] [place] [address] PCP - General Internal Medicine 11/24/21 03/02/22 Cheryl Gallego MD [address] [place] [address] PCP - General Internal Medicine 03/03/22 06/14/23 [facility], Pcp [address] [place] [address] PCP - General Internal Medicine 06/15/23 10/22/23 Amrik Mendoza MD [address] [place] [address] PCP - General Family Practice 10/23/23 Amrik Mendoza MD [address] [place] [address] Primary Care Physician Family Practice 10/23/23 Puma Gordon MD [address] [place] [address] Lung Cancer Corporate Fitness Program Coordinator 10/23/23 Maritza Van NP [address] [place] [address] Referring Physician Nurse Practioner Adult Health 10/23/23 documented as of this encounter
--- OUTSIDE RECORDS SUMMARY | 2024-12-18 13:07 | XMS_ITS | Clinical Summary ---
Author Organization [facility] Address [address] [place] [address] Care Team Providers Care Notereader Name Role Phone Amrik Mendoza MD Primary Care Provider Surgical History Surgery Date Site/Laterality Comments OTHER SURGICAL HISTORY PROCEDURE: [place] OSTEOTOMY SPINE PST/PSTLAT APPR 1 VRT SGM CRV; COMMENT: surgery X 2 OTHER SURGICAL HISTORY 1993 PROCEDURE: HISTORICAL TOTAL HYSTERECTOMY W/O BSO; COMMENT: left ovary TUBAL LIGATION PROCEDURE: HISTORICAL TUBAL LIGATION OTHER SURGICAL HISTORY 1999 PROCEDURE: MN ARTHROSCOPY TEMPOROMANDIBULAR JOINT SURGICAL; COMMENT: left SALPINGOOPHORECTOMY 02/08/11 PROCEDURE: MN LAPAROSCOPY W/RMVL ADNEXAL STRUCTURES; COMMENT: Serous cystadenoma [...] Recently Relevant to Health Maintenance Care Teams Notereader Relationship Specialty Start Date End Date Amrik Mendoza MD [address] [place] [address] Dr Tra [place] PCP - General 10/23/23
--- OUTSIDE RECORDS SUMMARY | 2024-12-18 13:07 | XMS_ITS | Encounter Summary ---
[facility] Organization [facility] Address [address] [place] [address] Care Team Providers Care Bench Repair Technician Name Role Phone Maricruz Winter MD Primary Care Provider Un available Isha Armstrong MD Primary Care Provider [phone] Cheryl Gallego MD Primary Care Prov ider [facility], Pcp Primary Care Provider Amrik Chadwick MD Unavailable Puma Sy MD Unavailable Maritza Van NP Unavailable Amrik Chadwick MD Primary Care Provider Unav ailable Reason for Visit * Reason Onset Date Comments injection 03/17/2020 Encounter Details Date Type Department Care Team Description 03/17/2020 Telephone Physiatry - [place] [address] [place] [address] Cooper Smith DO injection Social History Tobacco Use Types Packs/Day Years Used Date Smoking Tobacco: Former Cigarettes 0.3 Q uit: 11/28/2018 Smokeless Tobacco: Never Alcohol Use Standard Drinks/Week Comments No 0 (1 standard drink = 0.6 oz pur e alcohol) Quit in May Sex Assigned at Date Recorded Not on file documented as of this encounter Miscellaneous Notes * Telephone Encounter - Nargis Nicholas L.P.N. - 03/17/2020 2:[address] Smith's note she is going to be having surgery and he did not Offer injection at this time Spoke to patient And she states that her surgery is not going to be until mid to late May She would like to have the lumbar injection with sedation it is not w/c related Will set up order and send to Dr Smith to review and sign ,she is aware that we will call her as soon as we can to schedule injection * Telephone Encounter - Lizeth Jenkins - 03/17/2020 2:28 PM EDT 1. Patient called stated she had an appointment with and he instructed her to call us andmake an appointment for injections . Patient wants to know if we had started the Authorization process? , I dont see an order for her injections. Please advice. She was very pleasant and would like acall once we have received the authorization. documented in this encounter Plan of Treatment Scheduled Orders Name Type Priority Associated Diagnoses Orde r Schedule PHYSIATRY PROCEDURE PHYSIATRY Routine Chronic midline low back pain without sciatica Lumbar disc herniation Chronic bilateral low back pain without sciatica Ordered: 03/18/2020 documented as of this encounter Visit Diagnoses Diagnosis Chronic midline low back pain without sciatica- Primary Lumbar disc herniation Displacement of lumbar intervertebral disc without myelopathy Chronic bilateral low back pain without sciatica documented in this encounter Care Teams Bench Repair Technician Relationship Specialty Start Date End Date Maricruz Winter MD PCP - General 03/30/11 11/23/21 Isha Armstrong MD [address] [place] [address] PCP - General Internal Medicine 11/24/21 03/02/22 Cheryl Gallego MD [address] [place] [address] PCP - General Internal Medicine 03/03/22 06/14/23 [facility], Pcp [address] [place] [address] PCP - General Internal Medicine 06/15/23 10/22/23 Amrik Mendoza MD [address] [place] [address] PCP - General Family Practice 10/23/23 Amrik Mendoza MD [address] [place] [address] Primary Care Physician Family Practice 10/23/23 Puma Gordon MD [address] [place] [address] Lung Cancer Operations Intelligence 10/23/23 Maritza Van NP [address] [place] [address] Referring Physician Nurse Practioner Adult Health 10/23/23 documented as of this encounter
--- OUTSIDE RECORDS SUMMARY | 2024-12-18 13:07 | XMS_ITS | Encounter Summary ---
Author Organization [facility] Address [address] [place] [address] Care Team Providers Care Manager Hris Name Role Phone Maricruz Winter MD Primary Care Provider Un available Isha Armstrong MD Primary Care Provider [phone] Cheryl Gallego MD Primary Care Prov ider [facility], Pcp Primary Care Provider Amrik Chadwick MD Unavailable Puma Sy MD Unavailable Maritza Van NP Unavailable Amrik Chadwick MD Primary Care Provider Unav ailable Encounter Details Date Type Department Care Team Description 12/29/2019 Aquaculture Farmer Report Medical Records [address] [place] [address] Margie Duran PA-C [address] [facility] [address] [place] [address] Social History Tobacco Use Types Packs/Day Years [...] on filedocumented in this encounter Care Teams Manager Hris Relationship Specialty Start Date End Date Maricruz Winter MD PCP - General 03/30/11 11/23/21 Isha Armstrong MD [address] [place] [address] PCP - General Internal Medicine 11/24/21 03/02/22 Cheryl Gallego MD [address] [place] [address] PCP - General Internal Medicine 03/03/22 06/14/23 [facility], [place] [address] PCP - General Internal Medicine 06/15/23 10/22/23 Amrik Mendoza MD [address] [place] [address] PCP - General Family Practice 10/23/23 Amrik Mendoza MD [address] [place] [address] Primary Care Physician Family Practice 10/23/23 Puma Gordon MD [address] [place] [address] Lung Cancer Hvac Installation Technician 10/23/23 Maritza Van NP [address] [place] [address] Referring Physician Nurse Practioner Adult Health 10/23/23 documented as of this encounter
--- OUTSIDE RECORDS SUMMARY | 2024-12-18 13:08 | XMS_ITS | Encounter Summary ---
Author Organization [facility] Address [address] [place] [address] Care Team Providers Care Software Systems Architect Name Role Phone Maricruz Winter MD Primary Care Provider Un available Isha Armstrong MD Primary Care Provider Cheryl Gallego MD Primary Care Prov ider [facility], Pcp Primary Care Provider Amrik Chadwick MD Unavailable Puma Sy MD Unavailable Maritza Van NP Unavailable Amrik Chadwick MD Primary Care Provider Unav ailable Encounter Details Date Type Department Care Team Description 05/17/2018 Pt. Non Urgent Medic al Question Medicine/Pediatrics - [address] [address] Maricruz Winter MD Social History Tobacco Use [...] is a yeast infection. Are there any omcs-exb-vobwyeq products you can recommend, or a prescription I can use? Thank you. Lety Chi documented in this encounter Plan of Treatment Not on file documented as of this encounter Visit Diagnoses Not on filedocumented in this encounter Care Teams Software Systems Architect Relationship Specialty Start Date End Date Maricruz Winter MD PCP - General 03/30/11 11/23/21 Isha Armstrong MD [address] [place] [address] PCP - General Internal Medicine 11/24/21 03/02/22 Cheryl Gallego MD [address] [place] [address] PCP - General Internal Medicine 03/03/22 06/14/23 [facility], [place] [address] PCP - General Internal Medicine 06/15/23 10/22/23 Amrik Mendoza MD [address] [place] [address] PCP - General Family Practice 10/23/23 Amrik Mendoza MD [address] [place] [address] Primary Care Physician Family Practice 10/23/23 Puma Gordon MD [address] [place] [address] Lung Cancer Airborne Operations 10/23/23 Maritza Van NP [address] [place] [address] Referring Physician Nurse Practioner [facility] 10/23/23 documented as of this encounter
--- OUTSIDE RECORDS SUMMARY | 2024-12-18 13:08 | XMS_ITS | Encounter Summary ---
Author Organization [facility] Address [address] [place] [address] Care Team Providers Care Disposition Clerk Name Role Phone Maricruz Winter MD Primary Care Provider Un available Maricruz Winter MD Primary Care Provider Un available Maricruz Winter MD Primary Care Provider Un available Isha Armstrong MD Primary Care Provider [phone] Cheryl Gallego MD Primary Care Prov ider [facility], Pcp Primary Care Provider Amrik Chadwick MD Unavailable Puma Sy MD Unavailable Maritza Van NP Unavailable Amrik Chadwick MD Primary Care Provider Unav ailable Encounter Details Date Type Department Care Team Description 08/29/2007 Hospital Medical Records [address] [place] [address] Jose Rafael Hills MD Social History Tobacco Use Types Packs/Day [...] on filedocumented in this encounter Care Teams Disposition Clerk Relationship Specialty Start Date End Date Maricruz Winter MD PCP - General 03/30/11 11/23/21 Maricruz Winter MD PCP - General 02/21/11 03/29/11 Maricruz Winter MD PCP - General 09/01/00 01/29/11 Isha Armstrong MD [address] [place] [address] PCP - General Internal Medicine 11/24/21 03/02/22 Cheryl Gallego MD [address] [place] [address] PCP - General Internal Medicine 03/03/22 06/14/23 [place] [address] PCP - General Internal Medicine 06/15/23 10/22/23 Amrik Mendoza MD [address] [place] [address] PCP - General Family Practice 10/23/23 Amrik Mendoza MD [address] [place] [place] [address] Primary Care Physician Family Practice 10/23/23 Puma Gordon MD [address] [place] [address] Lung Cancer Scrap Drop Engineer 10/23/23 Maritza Van NP [address] [place] [address] Referring Physician Nurse Practioner Adult Health 10/23/23 documented as of this encounter
--- OUTSIDE RECORDS SUMMARY | 2024-12-18 13:08 | XMS_ITS | Encounter Summary ---
[facility] Organization [facility] Address [address] [place] [address] Care Team Providers Care Test Developer Name Role Phone Maricruz Winter MD Primary Care Provider Un available Isha Armstrong MD Primary Care Provider [phone] Cheryl Gallego MD Primary Care Prov ider [facility], Pcp Primary Care Provider Amrik Chadwick MD Unavailable Puma Sy MD Unavailable Maritza Van NP Unavailable Amrik Chadwick MD Primary Care Provider Unav ailable Encounter Details Date Type Department Care Team Description 06/02/2014 Pt. Non Urgent Medic al Question Medicine/Pediatrics - [address] [address] Maricruz Winter MD Social History Tobacco Use Types Packs/Day Years Used Date Smoking Tobacco: Every Day Cigarettes Smokeless Tobacco: Never Comments:less than 1/2 ppd Alcohol Use Standard Drinks/Week Comments No 0 (1 standard drink = 0.6 oz pur e alcohol) Quit in Oct '08 Sex Assigned at Date Recorded Not on file documented as of this encounter Progress Notes * Tea GeorgeP.N. - 06/02/2014 10:16 AM EDTFrom: Lety Chi To: Maricruz Winter MD Sent: 06/02/2014 10:09 AM EDT Subject: Accepting New Patients Hi, Is Dr. Winter accepting new patients? My daughter would like to switch to her. Lety Chi [phone] documented in this encounter Plan of Treatment Not on file documented as of this encounter Visit Diagnoses Not on filedocumented in this encounter Care Teams Test Developer Relationship Specialty Start Date End Date Maricruz Winter MD PCP - General 03/30/11 11/23/21 Isha Armstrong MD [address] [place] [address] PCP - General Internal Medicine 11/24/21 03/02/22 Cheryl Gallego MD [address] [place] [address] PCP - General Internal Medicine 03/03/22 06/14/[address] [address] PCP - General Internal Medicine 06/15/23 10/22/23 Amrik Mendoza MD [address] [place] [address] PCP - General Family Practice 10/23/23 Amrik Mendoza MD [address] [place] [address] Primary Care Physician Family Practice 10/23/23 Puma Gordon MD [address] [place] [address] Lung Cancer Patrol Mother 10/23/23 Maritza Van NP [address] [place] [address] Referring Physician Nurse Practioner Adult [facility] 10/23/23 documented as of this encounter
--- OUTSIDE RECORDS SUMMARY | 2024-12-18 13:08 | XMS_ITS | Encounter Summary ---
Author Organization [facility] Address [address] [place] [address] Care Team Providers Care Mold Designer Name Role Phone Maricruz Winter MD Primary Care Provider Un available Maricruz Winter MD Primary Care Provider Un available Maricruz Winter MD Primary Care Provider Un available Isha Armstrong MD Primary Care Provider [phone] Cheryl Gallego MD Primary Care Prov ider [facility], Pcp Primary Care Provider Amrik Chadwick MD Unavailable Puma Sy MD Unavailable Maritza Van NP Unavailable Amrik Chadwick MD Primary Care Provider Unav ailable Encounter Details Date Type Department Care Team Description 02/24/2009 Hospital Medical Records [address] [place] [address] Amrik Mauro PA-C [address] [facility] [address] [place] [address] Social History Tobacco Use Types Packs/Day Years [...] on filedocumented in this encounter Care Teams Mold Designer Relationship Specialty Start Date End Date Maricruz Winter MD PCP - General 03/30/11 11/23/21 Maricruz Winter MD PCP - General 02/21/11 03/29/11 Maricruz Winter MD PCP - General 09/01/00 01/29/11 Isha Armstrong MD [address] [place] [address] PCP - General Internal Medicine 11/24/21 03/02/22 Cheryl Gallego MD [address] [place] [address] PCP - General Internal Medicine 03/03/22 06/14/23 [place] [address] PCP - General Internal Medicine 06/15/23 10/22/23 Amrik Mendoza MD [address] [place] [address] PCP - General Family Practice 10/23/23 Amrik Mendoza MD [address] [place] [address] Primary Care Physician Family Practice 10/23/23 Puma Gordon MD [address] [place] [address] Lung Cancer Film Spooler 10/23/23 Maritza Van NP [address] [place] [address] Referring Physician Nurse Practioner Adult Health 10/23/23 documented as of this encounter
--- OUTSIDE RECORDS SUMMARY | 2024-12-18 13:08 | XMS_ITS | Encounter Summary ---
Author Organization [facility] Address [address] [place] [address] Care Team Providers Care Gerentological Physiotherapist Name Role Phone Maricruz Winter MD Primary Care Provider Un available Isha Armstrong MD Primary Care Provider [phone] Cheryl Gallego MD Primary Care Prov ider [facility], Pcp Primary Care Provider Amrik Chadwick MD Unavailable Puma Sy MD Unavailable Maritza Van NP Unavailable Amrik Chadwick MD Primary Care Provider Unav ailable Encounter Details Date Type Department Care Team Description 05/19/2019 Old Medical Records Medical Records [address] [place] [address] Abstract, Provider Social History Tobacco Use Types [...] on filedocumented in this encounter Care Teams Gerentological Physiotherapist Relationship Specialty Start Date End Date Maricruz Winter MD PCP - General 03/30/11 11/23/21 Isha Armstrong MD [address] [place] [address] PCP - General Internal Medicine 11/24/21 03/02/22 Cheryl Gallego MD [address] [place] [address] PCP - General Internal Medicine 03/03/22 06/14/23 [facility] [place] [address] PCP - General Internal Medicine 06/15/23 10/22/23 Amrik Mendoza MD [address] [place] [address] PCP - General Family Practice 10/23/23 Amrik Mendoza MD [address] [place] [address] Primary Care Physician Family Practice 10/23/23 Puma Gordon MD [address] [place] [address] Lung Cancer Journalism Professor 10/23/23 Maritza Van NP [address] [place] [address] Referring Physician Nurse Practioner Adult Health 10/23/23 documented as of this encounter
--- OUTSIDE RECORDS SUMMARY | 2024-12-18 13:08 | XMS_ITS | Encounter Summary ---
Author Organization [facility] Address [address] [place] [address] Care Team Providers Care Bee Farmer Name Role Phone Maricruz Winter MD Primary Care Provider Un available Isha Armstrong MD Primary Care Provider [phone] Cheryl Gallego MD Primary Care Prov ider [facility], Pcp Primary Care Provider Amrik Chadwick MD Unavailable Puma Sy MD Unavailable Maritza Van NP Unavailable Amrik Chadwick MD Primary Care Provider Unav ailable Encounter Details Date Type Department Care Team Description 01/01/2020 Pt. Non Urgent Medic al Question Medicine/Pediatrics - [address] [address] Maricruz Winter MD Social History Tobacco Use Types Packs/Day Years Used Date Smoking Tobacco: Former Cigarettes 0.3 Q uit: 11/28/2018 Smokeless Tobacco: Never Alcohol Use Standard Drinks/Week Comments No 0 (1 standard drink = 0.6 oz pur e alcohol) Quit in May Sex Assigned at Date Recorded Not on file documented as of this encounter Progress Notes * Shannan Mcmahon L.P.N. - 01/01/2020 9:23 AM EDTFrom: Lety Chi To: Maricruz Winter MD Sent: 01/01/2020 7:43 AM EDT Subject: Coughing Hi Dr. Winter, I still have the cough that started about six months ago. It???s mostly at night and is not as bad as it was, but is still really bothersome. I would like to try a different medication to replace the Lisinopril to see if that is what is causing the cough. documented in this encounter Plan of Treatment Not on file documented as of this encounter Visit Diagnoses Not on filedocumented in this encounter Care Teams Bee Farmer Relationship Specialty Start Date End Date Maricruz Winter MD PCP - General 03/30/11 11/23/21 Isha Armstrong MD [address] [place] [address] PCP - General Internal Medicine 11/24/21 03/02/22 Cheryl Gallego MD [address] [place] [address] PCP - General Internal Medicine 03/03/22 06/14/23 [facility], [address] [address] PCP - General Internal Medicine 06/15/23 10/22/23 Amrik Mendoza MD [address] [place] [address] PCP - General Family Practice 10/23/23 Amrik Mendoza MD [address] [place] [address] Primary Care Physician Family Practice 10/23/23 Puma Gordon MD [address] [place] [address] Lung Cancer Behavioral Therapy Coordinator 10/23/23 Maritza Van NP [address] [place], [place] [address] Referring Physician Nurse Practioner Adult [facility] 10/23/23 documented as of this encounter
--- OUTSIDE RECORDS SUMMARY | 2024-12-18 13:08 | XMS_ITS | Encounter Summary ---
Author Organization [facility] Address [address] [place] [address] Care Team Providers Care Toll Gate Tender Name Role Phone Maricruz Winter MD Primary Care Provider Un available Isha Armstrong MD Primary Care Provider [phone] Cheryl Gallego MD Primary Care Prov ider [facility], Pcp Primary Care Provider Amrik Chadwick MD Unavailable Puma Sy MD Unavailable Maritza Van NP Unavailable Amrik Chadwick MD Primary Care Provider Unav ailable Encounter Details Date Type Department Care Team Description 11/25/2018 [facility] Medical Records [address] [place] [address] Abstract, Provider Social History Tobacco Use Types [...] on filedocumented in this encounter Care Teams Toll Gate Tender Relationship Specialty Start Date End Date Maricruz Winter MD PCP - General 03/30/11 11/23/21 Isha Armstrong MD [address] [place] [address] PCP - General Internal Medicine 11/24/21 03/02/22 Cheryl Gallego MD [address] [place] [address] PCP - General Internal Medicine 03/03/22 06/14/23 [place] [address] PCP - General Internal Medicine 06/15/23 10/22/23 Amrik Mendoza MD [address] [place] [address] PCP - General Family Practice 10/23/23 Armik Mendoza MD [address] [place] [address] Primary Care Physician Family Practice 10/23/23 Puma Gordon MD [address] [place] [address] Lung Cancer Car Oiler 10/23/23 Maritza Van NP [address] [place] [address] Referring Physician Nurse Practioner Adult Health 10/23/23 documented as of this encounter
--- OUTSIDE RECORDS SUMMARY | 2024-12-18 13:08 | XMS_ITS | Encounter Summary ---
Author Organization [facility] Address [address] [place] [address] Care Team Providers Care Lead Java J2Ee Developer Name Role Phone Cheryl Gallego MD Primary Care Prov ider [facility], Pcp Primary Care Provider Amrik Chadwick MD Unavailable Puma Sy MD Unavailable Maritza Van NP Unavailable Amrik Chadwick MD Primary Care Provider Unav ailable Reason for Visit * Reason Comments E-prescribe Rx Request Encounter Details Date Type Department Care Team Description 03/11/2022 Refill Medicine/Pediatrics - [address] [address] Brenda Gordillo PA-C E-prescribe Rx Request Social History Tobacco Use Types Packs/Day Years Used Date Smoking Tobacco: Former Cigarettes 0.3 Q uit: 11/28/2018 Smokeless Tobacco: Never Alcohol Use Standard Drinks/Week Comments No 0 (1 standard drink = 0.6 oz pur e alcohol) Quit in May Sex Assigned at Date Recorded Not on file COVID-19 Exposure Response Date Recorded In the last 10 days, have yo u been in contact with someone who was confirmed or suspected to have Coronavirus/COVID-19? No / Unsure 03/09/2022 10:18 AM EDT documented as of this encounter Miscellaneous Notes * Telephone Encounter - Rosa Elena Arenas M.A. - 03/15/2022 9:35 AM EDT Lab Results Component Value Date CHOL 212 03/09/2022 LDL 88 03/09/2022 HDL 101 03/09/2022 TRIG 118 03/09/2022 SGOT 23 03/09/2022 SGPT 36 03/09/2022 TORREY 03/09/2022 w/Brenda HIRSCH w/PCP not on file Next OV 07/10/2022 w/Yari Sparks Pls review in Brenda Gordillo's absence, thank you. Dr. Quinonez not starting in practice until March. * Telephone Encounter - Kailey Soliman - 03/14/2022 2:14 PM EDT Patient would like script to be: E-PRESCRIBED/FAXED TO PHARMACY WHEN WAS THE PATIENT'S LAST APPOINTMENT IN ADULT MEDICINE? 03/09/22 WHEN WAS THE LAST TIME THE PATIENT SAW THEIR PCP? Never seen pcp Does patient have an upcoming appointment? Yes 07/10/22 (THE MEDICATION REQUESTED IS ON THE MED [...] N/A Patients current insurance carrier is: Payor: [employer] / Plan: PPO $[id number] [id number] / Product Type: PPO [id number] documented in this encounter Plan of Treatment Not on file documented as of this encounter Visit Diagnoses Not on filedocumented in this encounter Care Teams Lead Java J2Ee Developer Relationship Specialty Start Date End Date Cheryl Gallego MD [address] [place] [address] PCP - General Internal Medicine 03/03/22 06/14/23 [facility], [place] [address] PCP - General Internal Medicine 06/15/23 10/22/23 Amrik Mendoza MD [address] [place] [address] PCP - General Family Practice 10/23/23 Amrik Mendoza MD [address] [place] [address] Primary Care Physician Family Practice 10/23/23 Puma Gordon MD [address] [place] [address] Lung Cancer Cannery Tender Engineer 10/23/23 Maritza Van NP [address] [place] [address] Referring Physician Nurse Practioner Adult Health 10/23/23 documented as of this encounter
--- OUTSIDE RECORDS SUMMARY | 2024-12-18 13:08 | XMS_ITS | Encounter Summary ---
Author Organization [facility] Address [address] [place] [address] Care Team Providers Care Steam Crane Operator Name Role Phone Maricruz Winter MD Primary Care Provider Un available Isha Armstrong MD Primary Care Provider [phone] Cheryl Gallego MD Primary Care Prov ider On License Of [facility], Pcp Primary Care Provider Amrik Chadwick MD Unavailable UnavailPuma Nolasco MD Unavailable Maritza Van NP Unavailable Amrik Chadwick MD Primary Care Provider Unav ailable Encounter Details Date Type Department Care Team Description 04/28/2015 Back Hoe Operator Report Medical Records [address] [place] [address] Cooper Hurst Social History Tobacco Use Types [...] on filedocumented in this encounter Care Teams Steam Crane Operator Relationship Specialty Start Date End Date Maricruz Winter MD PCP - General 03/30/11 11/23/21 Isha Armstrong MD [address] [place] [address] PCP - General Internal Medicine 11/24/21 03/02/22 Cheryl Gallego MD [address] [place] [address] PCP - General Internal Medicine 03/03/22 06/14/23 On License Of [facility], [place] [address] PCP - General Internal Medicine 06/15/23 10/22/23 Amrik Mendoza MD [address] [place] [address] PCP - General Family Practice 10/23/23 Amrik Mendoza MD [address] [place] [address] Primary Care Physician Family Practice 10/23/23 Puma Gordon MD [address] [place] [address] Lung Cancer Breakdown Person 10/23/23 Maritza Van NP [address] [place] [address] Referring Physician Nurse Practioner Adult Health 10/23/23 documented as of this encounter
--- OUTSIDE RECORDS SUMMARY | 2024-12-18 13:08 | XMS_ITS | Encounter Summary ---
[facility] Organization [facility] Address [address] [place] [address] Care Team Providers Care Manager Sourcing Name Role Phone Isha Armstrong MD Primary Care Provider [phone] Cheryl Gallego MD Primary Care Prov ider [facility], Pcp Primary Care Provider Amrik Chdawick MD Unavailable Puma Sy MD Unavailable Maritza Van NP Unavailable Amrik Chadwick MD Primary Care Provider Unav ailable Reason for Visit * Reason Onset Date Comments APPOINTMENT 01/11/2022 Encounter Details Date Type Department Care Team Description 01/11/2022 Pt. Non Urgent Medical Question Adult Medicine [address] [phone] Isha Armstrong MD [address] [place] [address] [phone] Social History Tobacco Use Types Packs/Day Years [...] filedocumented in this encounter Care Teams Manager Sourcing Relationship Specialty Start Date End Date Isha Armstrong MD [address] [place] [address] PCP - General Internal Medicine 11/24/21 03/02/22 Cheryl Gallego MD [address] [place] [address] PCP - General Internal Medicine 03/03/22 06/14/23 [facility], Pcp [address] [place] [address] PCP - General Internal Medicine 06/15/23 10/22/23 Amrik Mendoza MD [address] [place] [address] PCP - General Family Practice 10/23/23 Amrik Mendoza MD [address] [place] [address] Primary Care Physician Family Practice 10/23/23 Puma Gordon MD [address] [place] [address] Lung Cancer Proposal Rep 10/23/23 Maritza Van NP [address] [place], [place] [id number] Referring Physician Nurse Practioner Adult Health 10/23/23 documented as of this encounter
--- OUTSIDE RECORDS SUMMARY | 2024-12-18 13:08 | XMS_ITS | Encounter Summary ---
Author Organization [facility] Address [address] [place] [address] Care Team Providers Care Adult Education Professional Name Role Phone Maricruz Winter MD Primary Care Provider Un available Isha Armstrong MD Primary Care Provider [phone] Cheryl Gallego MD Primary Care Prov ider [facility], Pcp Primary Care Provider Amrik Chadwick MD Unavailable Puma Sy MD Unavailable Maritza Van NP Unavailable Amrik Chadwick MD Primary Care Provider Unav ailable Encounter Details Date Type Department Care Team Description 01/20/2021 Telephone Adult Medicine [address] [address] aMricruz Winter MD Social History Tobacco Use Types [...] on filedocumented in this encounter Care Teams Adult Education Professional Relationship Specialty Start Date End Date Maricruz Winter MD PCP - General 03/30/11 11/23/21 Isha Armstrong MD [address] [place] [address] PCP - General Internal Medicine 11/24/21 03/02/22 Cheryl Gallego MD [address] [place] [address] PCP - General Internal Medicine 03/03/22 06/14/23 [facility], [place] [address] PCP - General Internal Medicine 06/15/23 10/22/23 Amrik Mendoza MD [address] [place] [address] PCP - General Family Practice 10/23/23 Amrik Mendoza MD [address] [place] [address] Primary Care Physician Family Practice 10/23/23 Puma Gordon MD [address] [place] [address] Lung Cancer Executive Team Leader 10/23/23 Maritza Van NP [address] [place] [address] Referring Physician Nurse Practioner Adult Health 10/23/23 documented as of this encounter
--- OUTSIDE RECORDS SUMMARY | 2024-12-18 13:08 | XMS_ITS | Encounter Summary ---
[facility] Organization [facility] Address [address] [place] [address] Care Team Providers Care Size Roller Operator Name Role Phone Maricruz Winter MD Primary Care Provider Un available Isha Armstrong MD Primary Care Provider [phone] Cheryl Gallego MD Primary Care Prov ider [facility], Pcp Primary Care Provider Amrik Chadwick MD Unavailable Puma Sy MD Unavailable Maritza Van NP Unavailable Amrik Chadwick MD Primary Care Provider Unav ailable Reason for Visit * Reason Onset Date Comments Form 07/20/2020 [employer] (Assisted Disability Claim) Encounter Details Date Type Department Care Team Description 07/20/2020 Telephone Medicine/Pediatrics - [address] [phone] Maricruz Winter MD Form ([employer] (Assisted Disability Claim)) Social History Tobacco Use Types Packs/Day Years [...] have Coronavirus / COVID-19? Unable to assess 07/16/2020 7:42 AM EST documented as of this encounter Miscellaneous Notes * Telephone Encounter - Elio Flores M.A. - 07/20/2020 2:00 PM EST Mlom for pt to call back - I need to speak with pt when she calls back- ? Diagnosis last time we completed this form for her neck was 2017. If this is for the same condition who has been doing it since we last completed it? * Telephone Encounter - Lin Santos - 07/20/2020 10:35 AM EST Form received from (who/facility name) [facility] What is the form for Fish Farm Manager Disability Claim Requires completion/signature. Please return completed form to fax #: Form placed in forms bin at check in. documented in this encounter Plan of Treatment Not on file documented as of this encounter Visit Diagnoses Not on filedocumented in this encounter Care Teams Size Roller Operator Relationship Specialty Start Date End Date Maricruz Winter MD PCP - General 03/30/11 11/23/21 Isha Armstrong MD [address] [place] [address] PCP - General Internal Medicine 11/24/21 03/02/22 Cheryl Gallego MD [address] [place] [address] PCP - General Internal Medicine 03/03/22 06/14/23 [facility], Pcp [address] [place] [address] PCP - General Internal Medicine 06/15/23 10/22/23 Amrik Mendoza MD [address] [place] [address] PCP - General Family Practice 10/23/23 Amrik Mendoza MD [address] [place] [address] Primary Care Physician Family Practice 10/23/23 Puma Gordon MD [address] [place] [address] Lung Cancer Credit Compliance Officer 10/23/23 Maritza Van NP [address] [place] [address] Referring Physician Nurse Practioner Adult Health 10/23/23 documented as of this encounter
--- OUTSIDE RECORDS SUMMARY | 2024-12-18 13:08 | XMS_ITS | Encounter Summary ---
[facility] Organization [facility] Address [address] [place] [address] Care Team Providers Care Agricultural Produce Sorter Name Role Phone Maricruz Winter MD Primary Care Provider Un available Isha Armstrong MD Primary Care Provider [phone] Cheryl Gallego MD Primary Care Prov ider [facility], Pcp Primary Care Provider Amrik Chadwick MD Unavailable Puma Sy MD Unavailable Maritza Van NP Unavailable Amrik Chadwick MD Primary Care Provider Unav ailable Encounter Details Date Type Department Care Team Description 01/20/2020 Pt. Non Urgent Medic al Question Adult Medicine [address] [address] Maricruz Winter MD Social History Tobacco Use Types Packs/Day Years Used Date Smoking Tobacco: Former Cigarettes 0.3 Q uit: 11/28/2018 Smokeless Tobacco: Never Alcohol Use Standard Drinks/Week Comments No 0 (1 standard drink = 0.6 oz pur e alcohol) Quit in Oct '08 Sex Assigned at Date Recorded Not on file documented as of this encounter Progress Notes * Shannan GerogeP.N. - 01/20/2020 10:19 AM EDTFrom: Lety Chi To: Maricruz Winter MD Sent: 01/20/2020 10:08 AM EDT Subject: Office Opening When will the office open? I would like to schedule an appointment once it is opened. documented in this encounter Plan of Treatment Not on file documented as of this encounter Visit Diagnoses Not on filedocumented in this encounter Care Teams Agricultural Produce Sorter Relationship Specialty Start Date End Date Maricruz Winter MD PCP - General 03/30/11 11/23/21 Isha Armstrong MD [address] [place] [address] PCP - General Internal Medicine 11/24/21 03/02/22 Cheryl Gallego MD [address] [place] [address] PCP - General Internal Medicine 03/03/22 06/14/23 [place] [address] PCP - General Internal Medicine 06/15/23 10/22/23 Amrik Mendoza MD [address] [place] [address] PCP - General Family Practice 10/23/23 Amrik Mendoza MD [address] [place] [address] Primary Care Physician Family Practice 10/23/23 Puma Gordon MD [address] [place] [address] Lung Cancer Solution Advisor 10/23/23 Maritza Van NP [address] [place], [place] [id number] Referring Physician Nurse Practioner Adult Health 10/23/23 documented as of this encounter
--- OUTSIDE RECORDS SUMMARY | 2024-12-18 13:08 | XMS_ITS | Encounter Summary ---
[facility] Organization [facility] Address [address] [place] [address] Care Team Providers Care Pulpwood Contractor Name Role Phone Maricruz Winter MD Primary Care Provider Un available Isha Armstrong MD Primary Care Provider [phone] Cheryl Gallego MD Primary Care Prov ider [facility], Pcp Primary Care Provider Amrik Chadwick MD Unavailable UnavailPuma Nolasco MD Unavailable Maritza Van NP Unavailable Amrik Chadwick MD Primary Care Provider Unav ailable Encounter Details Date Type Department Care Team Description 06/04/2015 Life Insurance Specialist Report Medical Records [address] [place] [address] [place] Social History Tobacco Use Types [...] on filedocumented in this encounter Care Teams Pulpwood Contractor Relationship Specialty Start Date End Date Maricruz Winter MD PCP - General 03/30/11 11/23/21 Isha Armstrong MD [address] [place] [address] PCP - General Internal Medicine 11/24/21 03/02/22 Cheryl Gallego MD [address] [place] [address] PCP - General Internal Medicine 03/03/22 06/14/23 [facility], [place] [address] PCP - General Internal Medicine 06/15/23 10/22/23 Amrik Mendoza MD [address] [place] [address] PCP - General Family Practice 10/23/23 Amrik Mendoza MD [address] [place] [address] Primary Care Physician Family Practice 10/23/23 Puma Gordon MD [address] [place] [address] Lung Cancer Chief Sustainability Officer 10/23/23 Maritza Van NP [address] [place] [address] Referring Physician Nurse Practioner Adult Health 10/23/23 documented as of this encounter
--- OUTSIDE RECORDS SUMMARY | 2024-12-18 13:08 | XMS_ITS | Encounter Summary ---
Author Organization [facility] Address [address] [place] [address] Care Team Providers Care Hot End Operator Name Role Phone Maricruz Winter MD Primary Care Provider Un available Isha Armstrong MD Primary Care Provider [phone] Cheryl Gallego MD Primary Care Prov ider [facility], Pcp Primary Care Provider Amrik Chadwick MD Unavailable UnavailPuma Nolasco MD Unavailable Maritza Van NP Unavailable Amrik Chadwick MD Primary Care Provider Unav ailable Encounter Details Date Type Department Care Team Description 05/12/2015 Environmental Health And Safety Intern Report Medical Records [address] [place] [address] [place] Social History Tobacco Use Types [...] on filedocumented in this encounter Care Teams Hot End Operator Relationship Specialty Start Date End Date Maricruz Winter MD PCP - General 03/30/11 11/23/21 Isha Armstrong MD [address] [place] [address] PCP - General Internal Medicine 11/24/21 03/02/22 Cheryl Gallego MD [address] [place] [address] PCP - General Internal Medicine 03/03/22 06/14/23 [facility]ly [facility], [place] [address] PCP - General Internal Medicine 06/15/23 10/22/23 Amrik Mendoza MD [address] [place] [address] PCP - General Family Practice 10/23/23 Amrik Mendoza MD [address] [place] [address] Primary Care Physician Family Practice 10/23/23 Puma Gordon MD [address] [place] [address] Lung Cancer Storage Consultant 10/23/23 Maritza Van NP [address] [place] [address] Referring Physician Nurse Practioner Adult Health 10/23/23 documented as of this encounter
--- OUTSIDE RECORDS SUMMARY | 2024-12-18 13:08 | XMS_ITS | Encounter Summary ---
Author Organization [facility] Address [address] [place] [address] Care Team Providers Care Interpreter Deaf Name Role Phone Maricruz Winter MD Primary Care Provider Un available Isha Armstrong MD Primary Care Provider [phone] Cheryl Gallego MD Primary Care Prov ider [facility], Pcp Primary Care Provider Amrik Chadwick MD Unavailable Puma Sy MD Unavailable Maritza Van NP Unavailable Amrik Chadwick MD Primary Care Provider Unav ailable Encounter Details Date Type Department Care Team Description 10/14/2014 Pt. Non Urgent Medic al Question Medicine/Pediatrics - [address] [phone] Maricruz Winter MD Social History Tobacco Use [...] Subject: Blood Pressure Meds and Opionion on [facility] Dr. Winter told me to drop her a line about my blood pressure. II sent a letter last Sunday and have not heard back. I will need an adjustment of my Lisinopril to a higher dose because my blood pressure has been highfor several weeks. I also asked what Dr. Winter's opinion is of [facility]. Thank you. Lety Chi documented in this encounter Plan of Treatment Not on file documented as of this encounter Visit Diagnoses Not on filedocumented in this encounter Care Teams Interpreter Deaf Relationship Specialty Start Date End Date Maricruz Winter MD PCP - General 03/30/11 11/23/21 Isha Armsrtong MD [address] [place] [address] PCP - General Internal Medicine 11/24/21 03/02/22 Cheryl Gallego MD [address] [place] [address] PCP - General Internal Medicine 03/03/22 06/14/23 [facility], [place] [address] PCP - General Internal Medicine 06/15/23 10/22/23 Amrik Mendoza MD [address] [place] [address] PCP - General Family Practice 10/23/23 Amrik Mendoza MD [address] [place] [address] Primary Care Physician Family Practice 10/23/23 Puma Gordon MD [address] [place] [address] Lung Cancer Telephone Recorder 10/23/23 Maritza Van, KINJAL [address] [place] [address] Referring Physician Nurse Practioner Adult Health 10/23/23 documented as of this encounter
--- OUTSIDE RECORDS SUMMARY | 2024-12-18 13:08 | XMS_ITS | Encounter Summary ---
Author Organization [facility] Address [address] [place] [address] Care Team Providers Care Signal And Communications Maintainer Name Role Phone Maricruz Winter MD Primary Care Provider Un available Isha Armstrong MD Primary Care Provider [phone] Cheryl Gallego MD Primary Care Prov ider [facility], Pcp Primary Care Provider Amrik Chadwick MD Unavailable Puma Sy MD Unavailable Maritza Van NP Unavailable Amrik Chadwick MD Primary Care Provider Unav ailable Encounter Details Date Type Department Care Team Description 04/23/2017 Release of Information Medical Records [address] [place] [address] Abstract, Provider Social History Tobacco Use Types [...] on filedocumented in this encounter Care Teams Signal And Communications Maintainer Relationship Specialty Start Date End Date Maricruz Winter MD PCP - General 03/30/11 11/23/21 Isha Armstrong MD [address] [place] [address] PCP - General Internal Medicine 11/24/21 03/02/22 Cheryl Gallego MD [address] [place] [address] PCP - General Internal Medicine 03/03/22 06/14/23 [place] [address] PCP - General Internal Medicine 06/15/23 10/22/23 Amrik Mendoza MD [address] [place] [address] PCP - General Family Practice 10/23/23 Amrik Mendoza MD [address] [place] [address] Primary Care Physician Family Practice 10/23/23 Puma Gordon MD [address] [place] [address] Lung Cancer Fitness/Wellness Director 10/23/23 Maritza Van NP [address] [place] [address] Referring Physician Nurse Practioner Adult Health 10/23/23 documented as of this encounter
--- OUTSIDE RECORDS SUMMARY | 2024-12-18 13:08 | XMS_ITS | Encounter Summary ---
Author Organization [facility] Address [address] [place] [address] Care Team Providers Care Cell Tester Name Role Phone Maricruz Winter MD Primary Care Provider Un available Isha Armstrong MD Primary Care Provider [phone] hCeryl Gallego MD Primary Care Prov ider [facility], Pcp Primary Care Provider Amrik Chadwick MD Unavailable Puma Sy MD Unavailable Mairtza Van NP Unavailable Armik Chadwick MD Primary Care Provider Unav ailable Encounter Details Date Type Department Care Team Description 06/04/2017 Transfer Records Medical Records [address] [place] [address] Social History Tobacco Use Types Packs/Day Years [...] on filedocumented in this encounter Care Teams Cell Tester Relationship Specialty Start Date End Date Maricruz Winter MD PCP - General 03/30/11 11/23/21 Isha Armstrong MD [address] [place] [address] PCP - General Internal Medicine 11/24/21 03/02/22 Cheryl Gallego MD [address] [place] [address] PCP - General Internal Medicine 03/03/22 06/14/23 [place] [address] PCP - General Internal Medicine 06/15/23 10/22/23 Amrik Mendoza MD [address] [place] [address] PCP - General Family Practice 10/23/23 Amrik Mendoza MD [address] [place] [address] Primary Care Physician Family Practice 10/23/23 Puma Gordon MD [address] [place] [address] Lung Cancer E Merchant 10/23/23 Maritza Van NP [address] [place] [address] Referring Physician Nurse Practioner Adult Health 10/23/23 documented as of this encounter
--- OUTSIDE RECORDS SUMMARY | 2024-12-18 13:08 | XMS_ITS | Encounter Summary ---
[facility] Organization [facility] Address [address] [place] [address] Care Team Providers Care Track Machine Operator Repairer Name Role Phone Maricruz Winter MD Primary Care Provider Un available Isha Armstrong MD Primary Care Provider Cheryl Gallego MD Primary Care Prov ider [facility], Pcp Primary Care Provider Amrik Chadwick MD Unavailable UnavailPuma Nolasco MD Unavailable Maritza Van NP Unavailable Amrik Chadwick MD Primary Care Provider Unav ailable Reason for Referral * Non SATYA (Routine) - Authorized/Booked Specialty Diagnoses / Procedures Referred By Contac t Referred To Contact Mental Health Procedures REFERRAL TO BEHAVIORAL HEALTH Maricruz Winter MD [address] [place] [address] [facility] [address] [place] [address] Referral ID Status Reason Start Date Expiration Date V isits Requested Visits Authorized [id number] Authorized/B ooked 05/18/2021 05/18/2022 1 1 Encounter Details Date Type Department Care Team Description 05/18/2021 Pt. Non Urgent Medic al Question Medicine/Pediatrics - [address] [address] Maricruz Winter MD Social History Tobacco Use Types Packs/Day Years Used Date Smoking Tobacco: Former Cigarettes 0.3 Q uit: 11/28/2018 Smokeless Tobacco: Never Alcohol Use Standard Drinks/Week Comments No 0 (1 standard drink = 0.6 oz pur e alcohol) Quit in May Sex Assigned at Date Recorded Not on file documented as of this encounter Miscellaneous Notes * Telephone Encounter - Jan Guzman - 05/18/2021 11:25 AM EDTFrom: Lety Chi To: Dennis Winter Sent: 05/18/2021 10:51 AM EDT Subject: Referral to behavioral health for a therapist In reference to our conversation at our last appointment regarding my separation from my , Iwould like to get a referral for a therapist at behavioral [facility]. There are several more issues that have come up and to deal with them, I would like to see a therapist. Thank you. documented in this encounter Plan of Treatment Not on file documented as of this encounter Visit Diagnoses Not on filedocumented in this encounter Care Teams Track Machine Operator Repairer Relationship Specialty Start Date End Date Maricruz Winter MD PCP - General 03/30/11 11/23/21 Isha Armstrong MD [address] [place] [address] PCP - General Internal Medicine 11/24/21 03/02/22 Cheryl Gallego MD [address] [place] [address] PCP - General Internal Medicine 03/03/22 06/14/23 [facility], Pcp [address] [place] [address] PCP - General Internal Medicine 06/15/23 10/22/23 Amrik Mendoza MD [address] [place] [address] PCP - General Family Practice 10/23/23 Amrik Mendoza MD [address] [place] [address] Primary Care Physician Family Practice 10/23/23 Puma Gordon MD [address] [place] [address] Lung Cancer Power Lineman Technician 10/23/23 Maritza Van NP [address] [place] [address] Referring Physician Nurse Practioner Adult Health 10/23/23 documented as of this encounter
--- OUTSIDE RECORDS SUMMARY | 2024-12-18 13:08 | XMS_ITS | Encounter Summary ---
Author Organization [facility] Address [address] [place] [address] Care Team Providers Care Boat Builder Name Role Phone Maricruz Winter MD Primary Care Provider Un available Isha Armstrong MD Primary Care Provider [phone] Cheryl Gallego MD Primary Care Prov ider [facility], Pcp Primary Care Provider Amrik Chadwick MD Unavailable Puma Sy MD Unavailable Maritza Van NP Unavailable Amrik Chadwick MD Primary Care Provider Unav ailable Encounter Details Date Type Department Care Team Description 05/08/2019 [facility] Medical Records [address] [place] [address] Abstract, Provider Social History Tobacco Use Types [...] on filedocumented in this encounter Care Teams Boat Builder Relationship Specialty Start Date End Date Maricruz Winter MD PCP - General 03/30/11 11/23/21 Isha Armstrong MD [address] [place] [address] PCP - General Internal Medicine 11/24/21 03/02/22 Cheryl Gallego MD [address] [place] [address] PCP - General Internal Medicine 03/03/22 06/14/23 [facility], [place] [address] PCP - General Internal Medicine 06/15/23 10/22/23 Amrik Mendoza MD [address] [place] [address] PCP - General Family Practice 10/23/23 Amrik Mendoza MD [address] [place] [address] Primary Care Physician Family Practice 10/23/23 Puma Gordon MD [address] [place] [address] Lung Cancer Requirements Analyst 10/23/23 Maritza Van NP [address] [place] [address] Referring Physician Nurse Practioner Adult Health 10/23/23 documented as of this encounter
--- OUTSIDE RECORDS SUMMARY | 2024-12-18 13:08 | XMS_ITS | Encounter Summary ---
Author Organization [facility] Address [address] [place] [address] Care Team Providers Care Electric Fan Assembler Name Role Phone Maricruz Winter MD Primary Care Provider Un available Maricruz Winter MD Primary Care Provider Un available Maricruz Winter MD Primary Care Provider Un available Isha Armstrong MD Primary Care Provider [phone] Cheryl Gallego MD Primary Care Prov ider Count Includes [facility], Pcp Primary Care Provider Amirk Chadwick MD Unavailable Puma Sy MD Unavailable Maritza Van NP Unavailable Amrik Chadwick MD Primary Care Provider Unav ailable Encounter Details Date Type Department Care Team Description 08/29/2007 Hospital Medical Records [address] [place] [address] Robert Albert MD Social History Tobacco Use Types Packs/Day [...] filedocumented in this encounter Care Teams Electric Fan Assembler Relationship Specialty Start Date End Date Maricruz Winter MD PCP - General 03/30/11 11/23/21 Maricruz Winter MD PCP - General 02/21/11 03/29/11 Maricruz Winter MD PCP - General 09/01/00 01/29/11 Isha Armstrong MD [address] [place] [address] PCP - General Internal Medicine 11/24/21 03/02/22 Cheryl Gallego MD [address] [place] [address] PCP - General Internal Medicine 03/03/22 06/14/23 [place] [address] PCP - General Internal Medicine 06/15/23 10/22/23 Amrik Mendoza MD [address] [place] [address] PCP - General Family Practice 10/23/23 Amrik Mendoza MD [address] [place] [address] Primary Care Physician Family Practice 10/23/23 Puma Gordon MD [address] [place] [address] Lung Cancer Restaurant Inspector 10/23/23 Maritza Van NP [address] [place] [address] Referring Physician Nurse Practioner Adult Health 10/23/23 documented as of this encounter
--- OUTSIDE RECORDS SUMMARY | 2024-12-18 13:08 | XMS_ITS | Encounter Summary ---
[facility] Organization [facility] Address [address] [place] [address] Care Team Providers Care Chief Executive Officer Name Role Phone Maricruz Winter MD Primary Care Provider Un available Maricruz Winter MD Primary Care Provider Un available Isha Armstrong MD Primary Care Provider [phone] Cheryl Gallego MD Primary Care Prov ider Community, Pcp Primary Care Provider Amrik Chadwick MD Unavailable Puma Sy MD Unavailable Maritza Van NP Unavailable Amrik Chadwick MD Primary Care Provider Unav ailable Encounter Details Date Type Department Care Team Description 03/19/2011 Refill Medicine/Pediatrics - [address] [id number] Maricruz Winter MD Social History Tobacco Use Types Packs/Day Years Used Date Smoking Tobacco: Every Day Cigarettes 0.5 Smokeless Tobacco: Never Comments:7 cigs a day Alcohol Use Standard Drinks/Week Comments No 0 (1 standard drink = 0.6 oz pur e alcohol) Quit in May Sex Assigned at Date Recorded Not on file documented as of this encounter Miscellaneous Notes * Telephone Encounter - Shannan Mcmahon L.P.N. - 03/20/2011 9:25 AM EDTFrom: LETY SILVESTRE To: Maricruz Winter Sent: Sabine Mar 19, 2011 10:04 AM Subject: Medication Renewal Request Original authorizing provider: MD Lety Schwartz would like a refill of the following medications: cyclobenzaprine (FLEXERIL) 10 MG tablet [Maricruz Winter MD] Preferred pharmacy: [id number] Comment: Medication renewals requested in this message routed to other providers: documented in this encounter Plan of Treatment Not on file documented as of this encounter Visit Diagnoses Not on filedocumented in this encounter Care Teams Chief Executive Officer Relationship Specialty Start Date End Date Maricruz Winter MD PCP - General 03/30/11 11/23/21 Maricruz Winter MD PCP - General 02/21/11 03/29/11 Isha Armstrong MD [address] [place] [address] PCP - General Internal Medicine 11/24/21 03/02/22 Cheryl Gallego MD [address] [place] [address] PCP - General Internal Medicine 03/03/22 06/14/23 [facility], [place] [id number] PCP - General Internal Medicine 06/15/23 10/22/23 Amrik Mendoza MD [address] [place] [address] PCP - General Family Practice 10/23/23 Amrik Mendoza MD [address] [place] [address] Primary Care Physician Family Practice 10/23/23 Puma Gordon MD [address] [place] [address] Lung Cancer Viticulture Teacher 10/23/23 Maritza Van NP [address] [place] [address] Referring Physician Nurse Practioner Adult Health 10/23/23 documented as of this encounter
--- OUTSIDE RECORDS SUMMARY | 2024-12-18 13:08 | XMS_ITS | Encounter Summary ---
Author Organization [facility] Address [address] [place] [address] Care Team Providers Care Otr Driver Name Role Phone Maricruz Winter MD Primary Care Provider Un available Isha Armstrong MD Primary Care Provider [phone] Cheryl Gallego MD Primary Care Prov ider [facility], Pcp Primary Care Provider Amrik Chadwick MD Unavailable Puma Sy MD Unavailable Maritza Van NP Unavailable Amrik Chadwick MD Primary Care Provider Unav ailable Encounter Details Date Type Department Care Team Description 09/01/2020 Orders Only Adult Medicine [address] [address] Lyn Robles NP Social History Tobacco Use Types Packs/Day [...] on filedocumented in this encounter Care Teams Otr Driver Relationship Specialty Start Date End Date Maricruz Winter MD PCP - General 03/30/11 11/23/21 Isha Armstrong MD [address] [place] [address] PCP - General Internal Medicine 11/24/21 03/02/22 Cheryl Gallego MD [address] [place] [address] PCP - General Internal Medicine 03/03/22 06/14/23 [facility], [place] [address] PCP - General Internal Medicine 06/15/23 10/22/23 Amrik Mendoza MD [address] [place] [address] PCP - General Family Practice 10/23/23 Amrik Mendoza MD [address] [place] [address] Primary Care Physician Family Practice 10/23/23 Puma Gordon MD [address] [place] [address] Lung Cancer Back Filler Operator 10/23/23 Maritza Van NP [address] [place] [address] Referring Physician Nurse Practioner Adult Health 10/23/23 documented as of this encounter
--- OUTSIDE RECORDS SUMMARY | 2024-12-18 13:08 | XMS_ITS | Encounter Summary ---
[facility] Organization [facility] Address [address] [place] [address] Care Team Providers Care General Office Associate Name Role Phone Maricruz Winter MD Primary Care Provider Un available Isha Armstrong MD Primary Care Provider [phone] Cheryl Gallego MD Primary Care Prov ider Community, Pcp Primary Care Provider Amrik Chadwick MD Unavailable Puma Sy MD Unavailable Maritza Van NP Unavailable Amrik Chadwick MD Primary Care Provider Unav ailable Encounter Details Date Type Department Care Team Description 09/11/2014 Release of Information Medical Records [address] [place] [address] Abstract, Provider Social History Tobacco Use Types [...] on filedocumented in this encounter Care Teams General Office Associate Relationship Specialty Start Date End Date Maricruz Winter MD PCP - General 03/30/11 11/23/21 Isha Armstrong MD [address] [place] [address] PCP - General Internal Medicine 11/24/21 03/02/22 Cheryl Gallego MD [address] [place] [address] PCP - General Internal Medicine 03/03/22 06/14/23 [place] [address] PCP - General Internal Medicine 06/15/23 10/22/23 Amrik Mendoza MD [address] [place] [address] PCP - General Family Practice 10/23/23 Amrik Mendoza MD [address] [place] [address] Primary Care Physician Family Practice 10/23/23 Puma Gordon MD [address] [place] [address] Lung Cancer Manager Estate 10/23/23 Maritza Van NP [address] [place] [address] Referring Physician Nurse Practioner Adult Health 10/23/23 documented as of this encounter
--- OUTSIDE RECORDS SUMMARY | 2024-12-18 13:08 | XMS_ITS | Encounter Summary ---
Author Organization [facility] Address [address] [place] [address] Care Team Providers Care Asphalt Distributor Tender Name Role Phone Cheryl Gallego MD Primary [...] REFERRAL TO NEUROLOGY Cheryl Gallego MD [address] [place] [address] [facility] [address], [address] [place] [address] Referral ID Status Reason Start Date Expiration Date V isits Requested Visits Authorized [id number] Authorized/B ooked 06/26/2022 10/21/2022 1 1 Reason for Visit * Reason Onset Date Comments REFERRAL 06/06/2022 Production Material Handler Feedback 06/06/2022 Neurology Encounter Details Date Type Department Care Team Description 06/06/[address] [facility] [address] [place] [address] Cheryl Gallego MD [address] [place] [address] REFERRAL; Production Material Handler Feedback (Neurology) Social History Tobacco Use Types Packs/Day Years Used Date Smoking Tobacco: Former Cigarettes 0.3 Q uit: 11/28/2018 Smokeless Tobacco: Never Alcohol Use Standard Drinks/Week Comments No 0 (1 standard drink = 0.6 oz pur e alcohol) Quit in May Sex Assigned at Date Recorded Not on file documented as of this encounter Miscellaneous Notes * Telephone Encounter - Cheryl Jason MD - 06/26/2022 10:19 AM EDT Referral [...] PM EDT The patient says she called [facility] to ask when their next appointment is and she says it is too far out. The patient wants to know if she can be referred to a different neurology group that is not [facility] or [facility]. What insurance does the patient have today? Payor: UNICARE / Plan: PPO $20 ANDOVER [id number] / Product Type: PPO [id number] (manually verified online, insurance still active and [...] insurance must be obtained and registered in [facility] or their referral can not be processed. Is this a retro request? NO. If yes for what date of service do you need the retro referral? N/A Who is calling to request this referral? The patient If the caller is not the patient, what is their name? N/A Ask the patient WHO referred them to this specialty: Patient saw Brenda Gordillo at [facility] for the problem and was [...] on filedocumented in this encounter Care Teams Asphalt Distributor Tender Relationship Specialty Start Date End Date Cheryl Gallego MD [address] [place] [address] PCP - General Internal Medicine 03/03/22 06/14/23 [facility], Pcp [address] [place] [address] PCP - General Internal Medicine 06/15/23 10/22/23 Amrik Mendoza MD [address] [place] [address] PCP - General Family Practice 10/23/23 Amrik Mendoza MD [address] [place] [address] Primary Care Physician Family Practice 10/23/23 Puma Gordon MD [address] [place] [address] Lung Cancer Cv Rn 10/23/23 Maritza Van NP [address] [place] [address] Referring Physician Nurse Practioner Adult Health 10/23/23 documented as of this encounter
--- OUTSIDE RECORDS SUMMARY | 2024-12-18 13:08 | XMS_ITS | Encounter Summary ---
[facility] Organization [facility] Address [address] [place] [address] Care Team Providers Care Farm Demonstrator Name Role Phone Maricruz Winter MD Primary Care Provider Un available Isha Armstrong MD Primary Care Provider Cheryl Gallego MD Primary Care Prov ider Community, Pcp Primary Care Provider Amrik Chadwick MD Unavailable Puma Sy MD Unavailable Maritza Van NP Unavailable Amrik Chadwick MD Primary Care Provider Unav ailable Encounter Details Date Type Department Care Team Description 01/01/2017 [facility] Medical Records [address] [place] [address] Abstract, Provider Social History Tobacco Use Types [...] on filedocumented in this encounter Care Teams Farm Demonstrator Relationship Specialty Start Date End Date Maricruz Winter MD PCP - General 03/30/11 11/23/21 Isha Armstrong MD [address] [place] [address] PCP - General Internal Medicine 11/24/21 03/02/22 Cheryl Gallego MD [address] [place] [address] PCP - General Internal Medicine 03/03/22 06/14/23 [place] [address] PCP - General Internal Medicine 06/15/23 10/22/23 Amrik Mendoza MD [address] [place] [address] PCP - General Family Practice 10/23/23 Amrik Mendoza MD [address] [place] [address] Primary Care Physician Family Practice 10/23/23 Puma Gordon MD [address] [place] [address] Lung Cancer Customer Order Clerk 10/23/23 Maritza Van NP [address] [place] [address] Referring Physician Nurse Practioner Adult Health 10/23/23 documented as of this encounter
--- OUTSIDE RECORDS SUMMARY | 2024-12-18 13:08 | XMS_ITS | Encounter Summary ---
Author Organization [facility] Address [address] [place] [address] Care Team Providers Care Hi Lo Driver Name Role Phone Maricruz Winter MD Primary Care Provider Un available Isha Armstrong MD Primary Care Provider [phone] Cheryl Gallego MD Primary Care Prov ider [facility], Pcp Primary Care Provider Amrik Chadwick MD Unavailable UnavailPuma Nolasco MD Unavailable Maritza Van NP Unavailable Amrik Chadwick MD Primary Care Provider Unav ailable Reason for Visit * Reason Onset Date Comments [facility] Gi 10/03/2017 Encounter Details Date Type Department Care Team Description 10/03/2017 Telephone Gastroenterology - [address] [address] Mina Driver PA-C [facility] [...] - 10/04/2017 8:47 AM EST Case # [id number] * Telephone Encounter - Kira Diamond - 10/03/2017 11:50 AM EST Patient referred by Mina Driver for procedure colonoscopy at [facility] GI with Dr Davalos on 10/30/17 Arrival time 7:00am procedure time 8:00am Booking sheet faxed to Vania Case # pending documented in this encounter Plan of Treatment Not on file documented as of this encounter Visit Diagnoses Not on filedocumented in this encounter Care Teams Hi Lo Driver Relationship Specialty Start Date End Date Maricruz Winter MD PCP - General 03/30/11 11/23/21 Isha Armstrong MD [address] [place] [address] PCP - General Internal Medicine 11/24/21 03/02/22 Cheryl Gallego MD [address] [place] [address] PCP - General Internal Medicine 03/03/22 06/14/23 [facility], Pcp [address] [place], [place] [address] PCP - General Internal Medicine 06/15/23 10/22/23 Amrik Mendoza MD [address] [place] [address] PCP - General Family Practice 10/23/23 Amrik Mendoza MD [address] [place] [address] Primary Care Physician Family Practice 10/23/23 Puma Gordon MD [address] [place] [address] Lung Cancer Vegetable I Farmworker 10/23/23 Maritza Van NP [address] [place] [address] Referring Physician Nurse Practioner Adult Health 10/23/23 documented as of this encounter
--- OUTSIDE RECORDS SUMMARY | 2024-12-18 13:08 | XMS_ITS | Encounter Summary ---
Author Organization [facility] Address [address] [place] [address] Care Team Providers Care Spiral Runner Name Role Phone Maricruz Winter MD Primary Care Provider Un available Isha Armstrong MD Primary Care Provider [phone] Cheryl Gallego MD Primary Care Prov ider [facility], Pcp Primary Care Provider Amrik Chadwick MD Unavailable Puma Sy MD Unavailable Maritza Van NP Unavailable Amrik Chadwick MD Primary Care Provider Unav ailable Encounter Details Date Type Department Care Team Description 12/09/2013 Pt. Non Urgent Medic al Question Physiatry - [address] [address] Cooper Smith DO Social History Tobacco Use Types Packs/Day Years Used Date Smoking Tobacco: Every Day Cigarettes Smokeless Tobacco: Never Comments:less than 1/2 ppd Alcohol Use Standard Drinks/Week Comments No 0 (1 standard drink = 0.6 oz pur e alcohol) Quit in May Sex Assigned at Date Recorded Not on file documented as of this encounter Progress Notes * Preethi Garcia M.A. - 12/09/2013 9:34 AM EDTFrom: LETY SILVESTRE To: Cooper Smith DO Sent: SunDec 09, 2013 9:27 AM Subject: Disability Paperwork I haven't received the disability paperwork that you filled out in the mail yet. I want to make sure that it was mailed back to me so that I can send all the paperwork back to [facility] at one time. I also need the copy of the paperwork from 2011 that I gave you as a reference mailed back to me. Thank you. Lety Silvestre [address] [place] [address] [phone] documented in this encounter Plan of Treatment Not on file documented as of this encounter Visit Diagnoses Not on filedocumented in this encounter Care Teams Spiral Runner Relationship Specialty Start Date End Date Maricruz Winter MD PCP - General 03/30/11 11/23/21 Isha Armtsrong MD [address] [place] [address] PCP - General Internal Medicine 11/24/21 03/02/22 Cheryl Gallego MD [address] [place] [address] PCP - General Internal Medicine 03/03/22 06/14/23 [place] [address] PCP - General Internal Medicine 06/15/23 10/22/23 Amrik Mendoza MD [address] [place] [address] PCP - General Family Practice 10/23/23 Amrik Mendoza MD [address] [place] [address] Primary Care Physician Family Practice 10/23/23 Puma Gordon MD [address] [place] [address] Lung Cancer Furnace Cooler 10/23/23 Maritza Van NP [address] [place] [address] Referring Physician Nurse Practioner Adult [facility] 10/23/23 documented as of this encounter
--- OUTSIDE RECORDS SUMMARY | 2024-12-18 13:08 | XMS_ITS | Encounter Summary ---
Author Organization [facility] Address [address] [place] [address] Care Team Providers Care Exchange Underwriting Consultant Name Role Phone Maricruz Winter MD Primary Care Provider Un available Isha Armstrong MD Primary Care Provider [phone] Cheryl Gallego MD Primary Care Prov ider [facility], Pcp Primary Care Provider Amrik Chadwick MD Unavailable Puma Sy MD Unavailable Maritza Van NP Unavailable Amrik Chadwick MD Primary Care Provider Unav ailable Encounter Details Date Type Department Care Team Description 11/16/2017 Telephone Gastroenterology - [place] [address] [place] [address] Mina Driver PA-C Social History Tobacco Use [...] on filedocumented in this encounter Care Teams Exchange Underwriting Consultant Relationship Specialty Start Date End Date Maricruz Winter MD PCP - General 03/30/11 11/23/21 Isha Armstrong MD [address] [place] [address] PCP - General Internal Medicine 11/24/21 03/02/22 Cheryl Gallego MD [address] [place] [address] PCP - General Internal Medicine 03/03/22 06/14/23 [place] [address] PCP - General Internal Medicine 06/15/23 10/22/23 Amrik Mendoza MD [address] [place] [address] PCP - General Family Practice 10/23/23 Amrik Mendoza MD [address] [place] [address] Primary Care Physician Family Practice 10/23/23 Puma Gordon MD [address] [place] [address] Lung Cancer Gas Substation Operator 10/23/23 Maritza Van NP [address] [place] [address] Referring Physician Nurse Practioner Adult Health 10/23/23 documented as of this encounter
--- OUTSIDE RECORDS SUMMARY | 2024-12-18 13:08 | XMS_ITS | Encounter Summary ---
Author Organization [facility] Address [address] [place] [address] Care Team Providers Care Banquet Server Name Role Phone Community, Pcp Primary Care Provider Amrik Chadwick MD Unavailable Puma Sy MD Unavailable Maritza Van NP Unavailable Amrik Chadwick MD Primary Care Provider Unav ailable Encounter Details Date Type Department Care Team Description 10/10/2023 Joint Supervisor Report Medical Records [address] [place] [address] Maritza Van NP Social History Tobacco Use [...] on filedocumented in this encounter Care Teams Banquet Server Relationship Specialty Start Date End Date Community, Pcp PCP - General Internal Medicine 06/15/23 10/22/23 Amrik Mendoza MD PCP - General Family Practice 10/23/23 Amrik Mendoza MD Primary Care Physician Family Practice 10/23/23 Puma Gordon MD Lung Cancer Guest Services 10/23/23 Maritza Van NP Referring Physician Nurse Practioner Adult Health 10/23/23 documented as of this encounter
--- OUTSIDE RECORDS SUMMARY | 2024-12-18 13:08 | XMS_ITS | Encounter Summary ---
Author Organization [facility] Address [address] [place] [address] Care Team Providers Care Order Processor Name Role Phone Maricruz Winter MD Primary Care Provider Un available Isha Armstrong MD Primary Care Provider [phone] Cheryl Gallego MD Primary Care Prov ider [facility], Pcp Primary Care Provider Amrik Chadwick MD Unavailable Puma Sy MD Unavailable Maritza Van NP Unavailable Amrik Chadwick MD Primary Care Provider Unav ailable Encounter Details Date Type Department Care Team Description 03/18/2014 Pt. Non Urgent Medic al Question Physiatry - [address] [address] Cooper Smith DO Social History Tobacco Use [...] in a lot of pain. 's Assisstant, Wlae, suggested that I might need a cortisone shot. I would like to schedulean appt. for a cortisone shot with Dr. Smith. He knows my history. Lety Chi [phone] documented in this encounter Plan of Treatment Not on file documented as of this encounter Visit Diagnoses Not on filedocumented in this encounter Care Teams Order Processor Relationship Specialty Start Date End Date Maricruz Winter MD PCP - General 03/30/11 11/23/21 Isha Armstrong MD [address] [place] [address] PCP - General Internal Medicine 11/24/21 03/02/22 Cheryl Gallego MD [address] [place] [address] PCP - General Internal Medicine 03/03/22 06/14/23 [facility], [place] [address] PCP - General Internal Medicine 06/15/23 10/22/23 Amrik Mendoza MD [address] [place] [address] PCP - General Family Practice 10/23/23 Amrik Mendoza MD [address] [place] [address] Primary Care Physician Family Practice 10/23/23 Puma Gordon MD [address] [place] [address] Lung Cancer Blanket Cutter Hand 10/23/23 Maritza Van NP [address] [place] [address] Referring Physician Nurse Practioner Adult Health 10/23/23 documented as of this encounter
--- OUTSIDE RECORDS SUMMARY | 2024-12-18 13:08 | XMS_ITS | Encounter Summary ---
Author Organization [facility] Address [address] [place] [address] Care Team Providers Care Irrigationist Name Role Phone Maricruz Winter MD Primary Care Provider Un available Isha Armstrong MD Primary Care Provider [phone] Cheryl Gallego MD Primary Care Prov ider [facility], Pcp Primary Care Provider Amrik Chadwick MD Unavailable UnavailPuma Nolasco MD Unavailable Maritza Van NP Unavailable Amirk Chadwick MD Primary Care Provider Unav ailable Encounter Details Date Type Department Care Team Description 03/19/2015 Electrical Appliance Servicer Report Medical Records [address] [place] [address] Cooper Hurst Social History Tobacco Use Types [...] on filedocumented in this encounter Care Teams Irrigationist Relationship Specialty Start Date End Date Maricruz Winter MD PCP - General 03/30/11 11/23/21 Isha Armstrong MD [address] [place] [address] PCP - General Internal Medicine 11/24/21 03/02/22 Cheryl Gallego MD [address] [place] [address] PCP - General Internal Medicine 03/03/22 06/14/23 [facility], [place] [address] PCP - General Internal Medicine 06/15/23 10/22/23 Amrik Mendoza MD [address] [place] [address] PCP - General Family Practice 10/23/23 Amrik Mendoza MD [address] [place] [address] Primary Care Physician Family Practice 10/23/23 Puma Gordon MD [address] [place] [address] Lung Cancer Well Flow Operator 10/23/23 Maritza Van NP [address] [place] [address] Referring Physician Nurse Practioner Adult Health 10/23/23 documented as of this encounter
--- OUTSIDE RECORDS SUMMARY | 2024-12-18 13:08 | XMS_ITS | Encounter Summary ---
Author Organization [facility] Address [address] [place] [address] Care Team Providers Care Slotter Operator Name Role Phone Maricruz Winter MD Primary Care Provider Un available Isha Armstrong MD Primary Care Provider [phone] Cheryl Gallego MD Primary Care Prov ider [facility], Pcp Primary Care Provider Amrik Chadwick MD Unavailable Puma Sy MD Unavailable Maritza Van NP Unavailable Amrik Chadwick MD Primary Care Provider Unav ailable Encounter Details Date Type Department Care Team Description 09/14/2011 Hospital Medical Records [address] [place] [address] Areli Joy MD Social History Tobacco Use [...] on filedocumented in this encounter Care Teams Slotter Operator Relationship Specialty Start Date End Date Maricruz Winter MD PCP - General 03/30/11 11/23/21 Isha Armstrong MD [address] [place] [address] PCP - General Internal Medicine 11/24/21 03/02/22 Cheryl Gallego MD [address] [place] [address] PCP - General Internal Medicine 03/03/22 06/14/23 [facility], Pcp [address] [place] [address] PCP - General Internal Medicine 06/15/23 10/22/23 Amrik Mendoza MD [address] [place] [address] PCP - General Family Practice 10/23/23 Amrik Mendoza MD [address] [place] [address] Primary Care Physician Family Practice 10/23/23 Puma Gordon MD [address] [place] [address] Lung Cancer Public Defender 10/23/23 Maritza Van NP [address] [place] [address] Referring Physician Nurse Practioner Adult Health 10/23/23 documented as of this encounter
--- OUTSIDE RECORDS SUMMARY | 2024-12-18 13:08 | XMS_ITS | Encounter Summary ---
Author Organization [facility] Address [address] [place] [address] Care Team Providers Care Fuel House Attendant Name Role Phone Maricruz Winter MD Primary Care Provider Un available Isha Armstrong MD Primary Care Provider [phone] Cheryl Gallego MD Primary Care Prov ider [facility], Pcp Primary Care Provider Amrik Chadwick MD Unavailable Puma Sy MD Unavailable Maritza Van NP Unavailable Amrik Chadwick MD Primary Care Provider Unav ailable Encounter Details Date Type Department Care Team Description 07/28/2020 Orders Only Medicine/Pediatrics - [place] [address] [place] [address] Maricruz Winter MD Preoperative examination (Primary Dx) Social History Tobacco Use Types [...] AM EST documented as of this encounter Plan of Treatment Scheduled Orders Name Type Priority Associated Diagnoses Orde r Schedule ELECTROCARDIOGRAM, COMPLETE (ECG) Cardiology Routine Preoperative examination 1 Occurrences starting 07/28/2020 until 07/28/2021 documented as of this encounter Results * (ABNORMAL) BASIC METABOLIC PANEL (09/27/2020 9:23 AM EST) Pathologist [facility] GLUCOSE 89 70 - 100 mg/dL 09/27/2020 2:24 PM EST [facility] Comment:Reference range appl icable to fasting specimens only Blood Urea Nitrogen 7 5 - 25 mg/dL 09/27/2020 2:24 PM EST [facility] CREAT 0.80 0.5 - 1.1 mg/dL 09/27/2020 2:24 PM EST [facility] GLOMERULAR FILTRATION RATE > 60 09/27/2020 2:24 PM EST [facility] Comment: If patient is -Uzbek, multiply result by 1.21 Chronic Kidney Disease: < 60 ml/min/1.73 square meters Kidney Failure: < 15 ml/min/1.73 square meters NA 134(L) 135 - 145 mEq/L 09/27/2020 2:24 PM EST [facility] K 4.7 3.5 - 5.5 mmol/L 09/27/2020 2:24 PM EST [facility] CL 100 96 - 110 mmol/L 09/27/2020 2:24 PM EST [facility] CARBON DIOXIDE (CO2) 25 21 - 32 mmol/L 09/27/2020 2:24 PM EST [facility] ANION GAP 9 3 - 11 09/27/2020 2:24 PM EST [facility] CALCIUM 9.6 8.5 - 10.5 mg/dL 09/27/2020 2:24 PM EST [facility] 09/27/2020 9:23 AM EST 09/27/2020 9:24 AM EST Maricruz Winter MD [facility] documented in this encounter Visit Diagnoses Diagnosis Preoperative examination- Primary Preoperative examination, unspecified documented in this encounter Care Teams Fuel House Attendant Relationship Specialty Start Date End Date Maricruz Winter MD PCP - General 03/30/11 11/23/21 Isha Armstrong MD [address] [place] [address] PCP - General Internal Medicine 11/24/21 03/02/22 Cheryl Gallego MD [address] [place] [address] PCP - General Internal Medicine 03/03/22 06/14/23 [facility], [place] [address] PCP - General Internal Medicine 06/15/23 10/22/23 Amrik Mendoza MD [address] [place] [address] PCP - General Family Practice 10/23/23 Amrik Mendoza MD [address] [place] [address] Primary Care Physician Family Practice 10/23/23 Puma Gordon MD [address] [place] [address] Lung Cancer Can Striper 10/23/23 Maritza Van NP [address] [place] [address] Referring Physician Nurse Practioner Adult [facility] 10/23/23 documented as of this encounter
--- OUTSIDE RECORDS SUMMARY | 2024-12-18 13:08 | XMS_ITS | Encounter Summary ---
Author Organization [facility] Address [address] [place] [address] Care Team Providers Care Vehicle Fuel Systems Converter Name Role Phone Maricruz Winter MD Primary [...] 05/09/2019 Release of Information Medical Records [address] [place] [address] Abstract, Provider Social History Tobacco Use Types [...] on filedocumented in this encounter Care Teams Vehicle Fuel Systems Converter Relationship Specialty Start Date End Date Maricruz Winter MD PCP - General 03/30/11 11/23/21 Isha Armstrong MD [address] [place] [address] PCP - General Internal Medicine 11/24/21 03/02/22 Cheryl Gallego MD [address] [place] [address] PCP - General Internal Medicine 03/03/22 06/14/23 [facility], [place] [address] PCP - General Internal Medicine 06/15/23 10/22/23 Amrik Mendoza MD [address] [place] [address] PCP - General Family Practice 10/23/23 Amrik Mendoza MD [address] [place] [address] Primary Care Physician Family Practice 10/23/23 Puma Gordon MD [address] [place] [address] Lung Cancer Pattern Clerk 10/23/23 Maritza Van NP [address] [place] [address] Referring Physician Nurse Practioner Adult Health 10/23/23 documented as of this encounter
--- OUTSIDE RECORDS SUMMARY | 2024-12-18 13:08 | XMS_ITS | Encounter Summary ---
Author Organization [facility] Address [address] [place] [address] Care Team Providers Care Warehouse Worker 2Nd Shift Name Role Phone Maricruz Winter MD Primary Care Provider Un available Isha Armstrong MD Primary Care Provider [phone] Cheryl Gallego MD Primary Care Prov ider [facility], Pcp Primary Care Provider Amrik Chadwick MD Unavailable UnavailPuma Nolasco MD Unavailable Maritza Van NP Unavailable Amrik Chadwick MD Primary Care Provider Unav ailable Encounter Details Date Type Department Care Team Description 11/28/2017 Crop Puller Report Medical Records [address] [place] [address] Casey Han MD Social History Tobacco Use Types Packs/Day [...] on filedocumented in this encounter Care Teams Warehouse Worker 2Nd Shift Relationship Specialty Start Date End Date Maricruz Winter MD PCP - General 03/30/11 11/23/21 Isha Armstrong MD [address] [place] [address] PCP - General Internal Medicine 11/24/21 03/02/22 Cheryl Gallego MD [address] [place] [address] PCP - General Internal Medicine 03/03/22 06/14/23 [facility], [place] [address] PCP - General Internal Medicine 06/15/23 10/22/23 Amrik Mendoza MD [address] [place] [address] PCP - General Family Practice 10/23/23 Amrik Mendoza MD [address] [place] [address] Primary Care Physician Family Practice 10/23/23 Puma Gordon MD [address] [place] [address] Lung Cancer Agriscience Instructor 10/23/23 Maritza Van NP [address] [place] [address] Referring Physician Nurse Practioner Adult Health 10/23/23 documented as of this encounter
--- OUTSIDE RECORDS SUMMARY | 2024-12-18 13:08 | XMS_ITS | Encounter Summary ---
[facility] Organization [facility] Address [address] [place] [address] Care Team Providers Care Bulk Station Agent Name Role Phone Maricruz Winter MD Primary Care Provider Un available Isha Armstrong MD Primary Care Provider [phone] Cheryl Gallego MD Primary Care Prov ider [facility], Pcp Primary Care Provider Amrik Chadwick MD Unavailable Puma Sy MD Unavailable Maritza Van NP Unavailable Amrik Chadwick MD Primary Care Provider Unav ailable Reason for Visit * Reason Onset Date Comments Prior Authorization 01/24/2018 lubiprostone (AMITIZA) 24 MCG capsule Encounter Details Date Type Department Care Team Description 01/24/2018 Telephone Medicine/Pediatrics - [address] [id number] Maricruz Winter MD Prior Authorization (lubiprostone (AMITIZA) [...] 180 days Please reply back to p [id number] Prior Auth pool Simona Olivares M.A. [facility] Prior Authorizations Ext [id number] * Telephone Encounter - Corrine Pringle - [...] What Pharmacy did the fax come from: [facility] fax #: [phone] [employer] Information from fax: What Prescription Plan does the patient have? BIN/PCN if applicable: Cardholder ID: Person Code: Relationship Code: Help desk phone: *FAXED TO PRIOR AUTH documented in this encounter Plan of Treatment Not on file documented as of this encounter Visit Diagnoses Not on filedocumented in this encounter Care Teams Bulk Station Agent Relationship Specialty Start Date End Date Maricruz Winter MD PCP - General 03/30/11 11/23/21 Isha Armstrong MD [address] [place] [address] PCP - General Internal Medicine 11/24/21 03/02/22 Cheryl Gallego MD [address] [place] [address] PCP - General Internal Medicine 03/03/22 06/14/23 [facility], Pcp [address] [place], [place] [id number] PCP - General Internal Medicine 06/15/23 10/22/23 Amrik Mendoza MD [address] [place] [address] PCP - General Family Practice 10/23/23 Amrik Mendoza MD [address] [place] [address] Primary Care Physician Family Practice 10/23/23 Puma Gordon MD [address] [place] [address] Lung Cancer Toy Department Manager 10/23/23 Maritza Van NP [address] [place] [address] Referring Physician Nurse Practioner Adult Health 10/23/23 documented as of this encounter
--- OUTSIDE RECORDS SUMMARY | 2024-12-18 13:08 | XMS_ITS | Encounter Summary ---
Author Organization [facility] Address [address] [place] [address] Care Team Providers Care Shadowgraph Scale Operator Name Role Phone Maricruz Winter MD Primary Care Provider Un available Maricruz Winter MD Primary Care Provider Un available Maricruz Winter MD Primary Care Provider Un available Isha Armstrong MD Primary Care Provider [phone] Cheryl Gallego MD Primary Care Prov ider [facility], Pcp Primary Care Provider Amrik Chadwick MD Unavailable Puma Sy MD Unavailable Maritza Van NP Unavailable Amrik Chadwick MD Primary Care Provider Unav ailable Encounter Details Date Type Department Care Team Description 01/11/2009 Hospital Medical Records [address] [place] [address] Josey Anderson MD [address] [facility] [address] [place] [address] Social History Tobacco Use Types Packs/Day Years [...] on filedocumented in this encounter Care Teams Shadowgraph Scale Operator Relationship Specialty Start Date End Date Maricruz Winter MD PCP - General 03/30/11 11/23/21 Maricruz Winter MD PCP - General 02/21/11 03/29/11 Maricruz Winter MD PCP - General 09/01/00 01/29/11 Isha Armstrong MD [address] [place] [address] PCP - General Internal Medicine 11/24/21 03/02/22 Cheryl Gallego MD [address] [place] [address] PCP - General Internal Medicine 03/03/22 06/14/23 [place] [address] PCP - General Internal Medicine 06/15/23 10/22/23 Amrik Mendoza MD [address] [place] [address] PCP - General Family Practice 10/23/23 Amrik Mendoza MD [address] [place] [address] Primary Care Physician Family Practice 10/23/23 Puma Gordon MD [address] [place] [address] Lung Cancer Transmission Engineer 10/23/23 Maritza Van NP [address] [place] [address] Referring Physician Nurse Practioner Adult Health 10/23/23 documented as of this encounter
--- OUTSIDE RECORDS SUMMARY | 2024-12-18 13:08 | XMS_ITS | Encounter Summary ---
Author Organization [facility] Address [address] [place] [address] Care Team Providers Care Windows Consultant Name Role Phone Maricruz Winter MD Primary Care Provider Un available Isha Armstrong MD Primary Care Provider [phone] Cheryl Gallego MD Primary Care Prov ider [facility], Pcp Primary Care Provider Amrik Chadwick MD Unavailable Puma Sy MD Unavailable Marizta Van NP Unavailable Amrik Chadwick MD Primary Care Provider Unav ailable Encounter Details Date Type Department Care Team Description 03/26/2018 [facility] Medical Records [address] [place] [address] Abstract, Provider Social History Tobacco Use Types [...] filedocumented in this encounter Care Teams Windows Consultant Relationship Specialty Start Date End Date Maricruz Winter MD PCP - General 03/30/11 11/23/21 Isha Armstrong MD [address] [place] [address] PCP - General Internal Medicine 11/24/21 03/02/22 Cheryl Gallego MD [address] [place] [address] PCP - General Internal Medicine 03/03/22 06/14/23 [place] [address] PCP - General Internal Medicine 06/15/23 10/22/23 Amrik Mendoza MD [address] [place] [address] PCP - General Family Practice 10/23/23 Amrik Mendoza MD [address] [place] [address] Primary Care Physician Family Practice 10/23/23 Puma Gordon MD [address] [place] [address] Lung Cancer Construction Sales Manager 10/23/23 Maritza Van NP [address] [place] [address] Referring Physician Nurse Practioner Adult Health 10/23/23 documented as of this encounter
--- OUTSIDE RECORDS SUMMARY | 2024-12-18 13:08 | XMS_ITS | Encounter Summary ---
Author Organization [employer] [facility] Address [address] [place] [address] Care Team Providers Care Clinical Nurse Leader Name Role Phone Maricruz Winter MD Primary Care Provider Un available Isha Armstrong MD Primary Care Provider [phone] Cheryl Gallego MD Primary Care Prov ider [facility], Pcp Primary Care Provider Amrik Chadwick MD Unavailable Puma Sy MD Unavailable Maritza Van NP Unavailable Amrik Chadwick MD Primary Care Provider Unav ailable Encounter Details Date Type Department Care Team Description 08/07/2018 Refill Medicine/Pediatrics - [address] [phone] Maricruz Winter MD Social History Tobacco Use [...] - 08/07/2018 4:49 PM EST To pt. gear shaper set up operator signature and ID required * Telephone [...] per tablet [Maricruz Winter MD] Preferred pharmacy: [id number] - [place], [place] - [address] [place] [address] AT [facility] Comment: Please make sure that the script for busPIRone is for 90 days. Thank you. documented in this encounter Plan of Treatment Not on file documented as of this encounter Visit Diagnoses Diagnosis Chronic neck pain Cervicalgia documented in this encounter Care Teams Clinical Nurse Leader Relationship Specialty Start Date End Date Maricruz Winter MD PCP - General 03/30/11 11/23/21 Isha Armstrong MD [address] [place] [address] PCP - General Internal Medicine 11/24/21 03/02/22 Cheryl Gallego MD [address] [place] [address] PCP - General Internal Medicine 03/03/22 06/14/23 [facility], [place] [address] PCP - General Internal Medicine 06/15/23 10/22/23 Amrik Mendoza MD [address] [place], [place] [address] PCP - General Family Practice 10/23/23 Amrik Mendoza MD [address] [place] [address] Primary Care Physician Family Practice 10/23/23 Puma Gordon MD [address] [place] [address] Lung Cancer Hot Die Press Feeder 10/23/23 Maritza Van NP [address] [place], [place] [address] Referring Physician Nurse Practioner Adult Health 10/23/23 documented as of this encounter
--- OUTSIDE RECORDS SUMMARY | 2024-12-18 13:08 | XMS_ITS | Encounter Summary ---
Author Organization [facility] Address [address] [place] [address] Care Team Providers Care Application Development Project Manager Name Role Phone Maricruz Winter MD Primary Care Provider Un available Isha Armstrong MD Primary Care Provider [phone] Cheryl Gallego MD Primary Care Prov ider [facility], Pcp Primary Care Provider Amrik Chadwick MD Unavailable Puma Sy MD Unavailable Maritza Van NP Unavailable Amrik Chadwick MD Primary Care Provider Unav ailable Encounter Details Date Type Department Care Team Description 01/13/2020 Pt. Non Urgent Medic al Question Physiatry - [address] [address] Cooper Smith DO Social History Tobacco Use Types Packs/Day Years Used Date Smoking Tobacco: Former Cigarettes 0.3 Q uit: 11/28/2018 Smokeless Tobacco: Never Alcohol Use Standard Drinks/Week Comments No 0 (1 standard drink = 0.6 oz pur e alcohol) Quit in May Sex Assigned at Date Recorded Not on file documented as of this encounter Progress Notes * Nargis Nicholas L.P.N. - 01/13/2020 10:01 AM EDTFrom: Lety Chi To: Cooper DO Sarah Sent: 01/13/2020 9:57 AM EDT Subject: Shots for back My appointment for sots for my back was cancelled due to Covid. I would like to set up an appointment RIMA. Thank you. documented in this encounter Plan of Treatment Not on file documented as of this encounter Visit Diagnoses Not on filedocumented in this encounter Care Teams Application Development Project Manager Relationship Specialty Start Date End Date Maricruz Winter MD PCP - General 03/30/11 11/23/21 Isha Armstrong MD [address] [place] [address] PCP - General Internal Medicine 11/24/21 03/02/22 Cheryl Gallego MD [address] [place] [address] PCP - General Internal Medicine 03/03/22 06/14/23 [place] [address] PCP - General Internal Medicine 06/15/23 10/22/23 Amrik Mendoza MD [address] [place] [address] PCP - General Family Practice 10/23/23 Amrik Mendoza MD [address] [place] [address] Primary Care Physician Family Practice 10/23/23 Puma Gordon MD [address] [place] [address] Lung Cancer Tire Mechanic 10/23/23 Maritza Van NP [address] [place], [place] [address] Referring Physician Nurse Practioner Adult Health 10/23/23 documented as of this encounter
--- OUTSIDE RECORDS SUMMARY | 2024-12-18 13:08 | XMS_ITS | Encounter Summary ---
Author Organization [employer] [facility] Address [address] [place] [address] Care Team Providers Care Director Of Clinical Trials Name Role Phone Maricruz Winter MD Primary Care Provider Un available Isha Armstrong MD Primary Care Provider [phone] Cheryl Gallego MD Primary Care Prov ider [facility], Pcp Primary Care Provider Amrik Chadwick MD Unavailable Puma Sy MD Unavailable Maritza Van NP Unavailable Amrik Chadwick MD Primary Care Provider Unav ailable Encounter Details Date Type Department Care Team Description 10/26/2014 Pt. Non Urgent Medic al Question Medicine/Pediatrics - [address] [phone] Maricruz Winter MD Social History Tobacco Use [...] Progress Notes * Cindy Stein M.A. - 10/26/2014 2:24 PM ESTFrom: Lety [...] on filedocumented in this encounter Care Teams Director Of Clinical Trials Relationship Specialty Start Date End Date Maricruz Winter MD PCP - General 03/30/11 11/23/21 Isha Armstrong MD [address] [place] [address] PCP - General Internal Medicine 11/24/21 03/02/22 Cheryl Gallego MD [address] [place] [address] PCP - General Internal Medicine 03/03/22 06/14/23 [facility], [place] [id number] PCP - General Internal Medicine 06/15/23 10/22/23 Amrik Mendoza MD [address] [place] [address] PCP - General Family Practice 10/23/23 Amrik Mendzoa MD [address] [place] [address] Primary Care Physician Family Practice 10/23/23 Puma Gordon MD [address] [place] [address] Lung Cancer Stagecraft Professor 10/23/23 Maritza Van NP [address] [place] [address] Referring Physician Nurse Practioner Adult Health 10/23/23 documented as of this encounter
--- OUTSIDE RECORDS SUMMARY | 2024-12-18 13:08 | XMS_ITS | Encounter Summary ---
Author Organization [facility] Address [address] [place] [address] Care Team Providers Care Christmas Tree Farmer Name Role Phone Maricruz Winter MD Primary Care Provider Un available Isha Armstrong MD Primary Care Provider [phone] Cheryl Gallego MD Primary Care Prov ider [facility], Pcp Primary Care Provider Amrik Chadwick MD Unavailable Puma Sy MD Unavailable Maritza Van NP Unavailable Amrik Chadwick MD Primary Care Provider Unav ailable Encounter Details Date Type Department Care Team Description 06/20/2011 Window Glazier Helper Report Medical Records [address] [place] [address] Sophie Nunez MD [address] [place] [address] [place] [id number] Social History Tobacco Use Types Packs/Day Years [...] on filedocumented in this encounter Care Teams Christmas Tree Farmer Relationship Specialty Start Date End Date Maricruz Winter MD PCP - General 03/30/11 11/23/21 Isha Armstrong MD [address] [place] [address] PCP - General Internal Medicine 11/24/21 03/02/22 Cheryl Gallego MD [address] [place] [address] PCP - General Internal Medicine 03/03/22 06/14/23 [facility], [address] [address] PCP - General Internal Medicine 06/15/23 10/22/23 Amrik Mendoza MD [address] [place] [address] PCP - General Family Practice 10/23/23 Amrik Mendoza MD [address] [place] [address] Primary Care Physician Family Practice 10/23/23 Puma Gordon MD [address] [place] [address] Lung Cancer Event Marketing Specialist 10/23/23 Maritza Van NP [address] [place] [address] Referring Physician Nurse Practioner Adult Health 10/23/23 documented as of this encounter
--- OUTSIDE RECORDS SUMMARY | 2024-12-18 13:09 | XMS_ITS | Encounter Summary ---
Author Organization [employer] [facility] Address [address] [place] [address] Care Team Providers Care Reel Slitter Name Role Phone Maricruz Winter MD Primary Care Provider Un available Isha Armstrong MD Primary Care Provider [phone] Cheryl Gallego MD Primary Care Prov ider [facility], Pcp Primary Care Provider Amrik Chadwick MD Unavailable Puma Sy MD Unavailable Maritza Van NP Unavailable Amrik Chadwick MD Primary Care Provider Unav ailable Encounter Details Date Type Department Care Team Description 09/15/2016 Pt. Non Urgent Medic al Question Medicine/Pediatrics - [address] [phone] Maricruz Winter MD Social History Tobacco Use [...] the pre-authorization form that was sent from [facility] at 4:10 yesterday has been processed yet. It is for Vicodin. My insurance company, [facility], requires the drNicholas to fill the form outbecause the prescription calls for more than 7 days worth. I only have a few pills left and the weekend is coming. I would appreciate a quick response. Thank you. Lety Chi [phone] documented in this encounter Plan of Treatment Not on file documented as of this encounter Visit Diagnoses Not on filedocumented in this encounter Care Teams Reel Slitter Relationship Specialty Start Date End Date Maricruz Winter MD PCP - General 03/30/11 11/23/21 Isha Armstrong MD [address] [place] [address] PCP - General Internal Medicine 11/24/21 03/02/22 Cheryl Gallego MD [address] [place] [address] PCP - General Internal Medicine 03/03/22 06/14/23 [facility], [place] [address] PCP - General Internal Medicine 06/15/23 10/22/23 Amrik Mendoza MD [address] [place] [address] PCP - General Family Practice 10/23/23 Amrik Mendoza MD [address] [place] [address] Primary Care Physician Family Practice 10/23/23 Puma Gordon MD [address] [place] [address] Lung Cancer Personal Lines Sales Rep 10/23/23 Maritza Van, KINJAL [address] [place] [address] Referring Physician Nurse Practioner [facility] 10/23/23 documented as of this encounter
--- OUTSIDE RECORDS SUMMARY | 2024-12-18 13:09 | XMS_ITS | Encounter Summary ---
Author Organization [facility] Address [address] [place] [address] Care Team Providers Care Room Service Bellhop Name Role Phone Maricruz Winter MD Primary Care Provider Un available Isha Armstrong MD Primary Care Provider [phone] Cheryl Gallego MD Primary Care Prov ider [facility], Pcp Primary Care Provider Amrik Chadwick MD Unavailable UnavailPuma Nolasco MD Unavailable Maritza Van NP Unavailable Amrik Chadwick MD Primary Care Provider Unav ailable Encounter Details Date Type Department Care Team Description 08/31/2015 Briquette Machine Operator Report Medical Records [address] [place] [address] Cooper Hurst Social History Tobacco Use Types [...] on filedocumented in this encounter Care Teams Room Service Bellhop Relationship Specialty Start Date End Date Maricruz Winter MD PCP - General 03/30/11 11/23/21 Isha Armstrong MD [address] [place] [address] PCP - General Internal Medicine 11/24/21 03/02/22 Cheryl Gallego MD [address] [place] [address] PCP - General Internal Medicine 03/03/22 06/14/23 [facility], [place] [address] PCP - General Internal Medicine 06/15/23 10/22/23 Amrik Mendoza MD [address] [place] [address] PCP - General Family Practice 10/23/23 Amrik Mendoza MD [address] [place] [address] Primary Care Physician Family Practice 10/23/23 Puma Gordon MD [address] [place] [address] Lung Cancer Sample Patternmaker 10/23/23 Maritza Van NP [address] [place] [address] Referring Physician Nurse Practioner Adult Health 10/23/23 documented as of this encounter
--- OUTSIDE RECORDS SUMMARY | 2024-12-18 13:09 | XMS_ITS | Encounter Summary ---
Author Organization [facility] Address [address] [place] [address] Care Team Providers Care Assembler Bicycle Name Role Phone Maricruz Winter MD Primary Care Provider Un available Isha Armstrong MD Primary Care Provider [phone] Cheryl Gallego MD Primary Care Prov ider [facility], Pcp Primary Care Provider Amrik Chadwick MD Unavailable Puma Sy MD Unavailable Maritza Van NP Unavailable Amrik Chadwick MD Primary Care Provider Unav ailable Encounter Details Date Type Department Care Team Description 04/08/2013 Controlled Substance Plan Medical Records [address] [place] [address] Abstract, Provider Social History Tobacco Use Types [...] on filedocumented in this encounter Care Teams Assembler Bicycle Relationship Specialty Start Date End Date Maricruz Winter MD PCP - General 03/30/11 11/23/21 Isha Armstrong MD [address] [place] [address] PCP - General Internal Medicine 11/24/21 03/02/22 Cheryl Gallego MD [address] [place] [address] PCP - General Internal Medicine 03/03/22 06/14/23 [facility], [place] [address] PCP - General Internal Medicine 06/15/23 10/22/23 Amrik Mendoza MD [address] [place], [place] [id number] PCP - General Family Practice 10/23/23 Amrik Mendoza MD [address] [place] [address] Primary Care Physician Family Practice 10/23/23 Puma Gordon MD [address] [place] [address] Lung Cancer Tripoler 10/23/23 Maritza Van NP [address] [place] [address] Referring Physician Nurse Practioner Adult Health 10/23/23 documented as of this encounter
--- OUTSIDE RECORDS SUMMARY | 2024-12-18 13:09 | XMS_ITS | Encounter Summary ---
Author Organization [facility] Address [address] [place] [address] Care Team Providers Care Performing Arts Technicians Name Role Phone Maricruz Winter MD Primary Care Provider Un available Isha Armstrong MD Primary Care Provider [phone] Cheryl Gallego MD Primary Care Prov ider [facility], Pcp Primary Care Provider Amrik Chadwick MD Unavailable Puma Sy MD Unavailable Maritza Van NP Unavailable Amrik Chadwick MD Primary Care Provider Unav ailable Encounter Details Date Type Department Care Team Description 03/16/2016 Telephone Medicine/Pediatrics - [address] [phone] Maricruz Winter MD Social History Tobacco Use [...] encounter Miscellaneous Notes * Telephone Encounter - Jane Novak RN - 03/16/2016 1:00 PM EDT From: Lety Chi Sent: 03/15/2016 5:45 PM To: [employer] Patient Services Pool Subject: Appointments Scheduled Topic: Complaint-Customer Service I am having surgery on my knee on March 31. Today I was scheduled for an EKG only. To me it would make more sense to schedule both the EKG and the Pre-op with my PCP at the same time. The last time Ihad surgery, it was done this way. Now I have to go to a second appt. when it could have been done in one appt. I scheduled my second appt. to see my PCP for my Pre Op appt., while I was at my EKG appt. today. Ilooked on [facility] and noticed that the wrong kind of appointment was scheduled. It is for another EKG when I specifically asked for the Pre-Op appt. with Dr. Winter, my PCP. I think the scheduling of appointments should be reviewed with your staff. Lety Chi documented in this encounter Plan of Treatment Not on file documented as of this encounter Visit Diagnoses Not on filedocumented in this encounter Care Teams Performing Arts Technicians Relationship Specialty Start Date End Date Maricruz Winter MD PCP - General 03/30/11 11/23/21 Isha Armstrong MD [address] [place] [address] PCP - General Internal Medicine 11/24/21 03/02/22 Cheryl Gallego MD [address] [place] [address] PCP - General Internal Medicine 03/03/22 06/14/23 [facility], [place] [id number] PCP - General Internal Medicine 06/15/23 10/22/23 Amrik Mendoza MD [address] [place] [address] [place] [address] PCP - General Family Practice 10/23/23 Amrik Mendoza MD [address] [place] [address] Primary Care Physician Family Practice 10/23/23 Puma Gordon MD [address] [place] [address] Lung Cancer Professor Of Music 10/23/23 Maritza Van NP [address] [place] [address] Referring Physician Nurse Practioner Adult Health 10/23/23 documented as of this encounter
--- OUTSIDE RECORDS SUMMARY | 2024-12-18 13:09 | XMS_ITS | Encounter Summary ---
Author Organization [facility] Address [address] [place] [address] Care Team Providers Care Amusement Machine Mechanic Name Role Phone Maricruz Winter MD Primary Care Provider Un available Isha Armstrong MD Primary Care Provider [phone] Cheryl Gallego MD Primary Care Prov ider [facility], Pcp Primary Care Provider Amrik Chadwick MD Unavailable Puma Sy MD Unavailable Maritza Van NP Unavailable Amrik Chadwick MD Primary Care Provider Unav ailable Encounter Details Date Type Department Care Team Description 03/16/2016 Release of Information Medical Records [address] [place] [address] Maricruz Winter MD Social History Tobacco Use [...] on filedocumented in this encounter Care Teams Amusement Machine Mechanic Relationship Specialty Start Date End Date Maricruz Winter MD PCP - General 03/30/11 11/23/21 Isha Armstrong MD [address] [place] [address] PCP - General Internal Medicine 11/24/21 03/02/22 Cheryl Gallego MD [address] [place] [address] PCP - General Internal Medicine 03/03/22 06/14/23 [facility], [place] [address] PCP - General Internal Medicine 06/15/23 10/22/23 Amrik Mendoza MD [address] [place] [address] PCP - General Family Practice 10/23/23 Amrik Mendoza MD [address] [place] [address] Primary Care Physician Family Practice 10/23/23 Puma Gordon MD [address] [place] [address] Lung Cancer Resident Programs Assistant 10/23/23 Maritza Van NP [address] [place] [address] Referring Physician Nurse Practioner Adult Health 10/23/23 documented as of this encounter
--- OUTSIDE RECORDS SUMMARY | 2024-12-18 13:09 | XMS_ITS | Encounter Summary ---
Author Organization [facility] Address [address] [place] [address] Care Team Providers Care Marine Safety Officer Name Role Phone Maricruz Winter MD Primary Care Provider Un available Isha Armstrong MD Primary Care Provider [phone] Cheryl Gallego MD Primary Care Prov ider [facility], Pcp Primary Care Provider Amrik Chadwick MD Unavailable UnavailPuma Nolasco MD Unavailable Maritza Van NP Unavailable Amrik Chadwick MD Primary Care Provider Unav ailable Encounter Details Date Type Department Care Team Description 02/17/2016 Roll Picker Report Medical Records [address] [place] [address] Brock Whyte Social History Tobacco Use Types [...] on filedocumented in this encounter Care Teams Marine Safety Officer Relationship Specialty Start Date End Date Maricruz Winter MD PCP - General 03/30/11 11/23/21 Isha Armstrong MD [address] [place] [address] PCP - General Internal Medicine 11/24/21 03/02/22 Cheryl Gallego MD [address] [place] [address] PCP - General Internal Medicine 03/03/22 06/14/23 [facility], [place] [address] PCP - General Internal Medicine 06/15/23 10/22/23 Amrik Mendoza MD [address] [place] [address] PCP - General Family Practice 10/23/23 Amrik Mendoza MD [address] [place] [address] Primary Care Physician Family Practice 10/23/23 Puma Gordon MD [address] [place] [address] Lung Cancer Market Development Trainer 10/23/23 Maritza Van NP [address] [place] [address] Referring Physician Nurse Practioner Adult Health 10/23/23 documented as of this encounter
--- OUTSIDE RECORDS SUMMARY | 2024-12-18 13:09 | XMS_ITS | Encounter Summary ---
Author Organization [facility] Address [address] [place] [address] Care Team Providers Care Ceramic Painter Name Role Phone Maricruz Winter MD Primary Care Provider Un available Isha Armstrong MD Primary Care Provider [phone] Cheryl Gallego MD Primary Care Prov ider [facility], Pcp Primary Care Provider Amrik Chadwick MD Unavailable Puma Sy MD Unavailable Maritza Van NP Unavailable Amrik Chadwick MD Primary Care Provider Unav ailable Encounter Details Date Type Department Care Team Description 09/09/2015 Controlled Substance Contract with Plan Medical Records [address] [place] [address] Abstract, Provider Social History Tobacco Use Types [...] on filedocumented in this encounter Care Teams Ceramic Painter Relationship Specialty Start Date End Date Maricruz Winter MD PCP - General 03/30/11 11/23/21 Isha Armstrong MD [address] [place] [address] PCP - General Internal Medicine 11/24/21 03/02/22 Cheryl Gallego MD [address] [place] [address] PCP - General Internal Medicine 03/03/22 06/14/23 [facility], [place] [address] PCP - General Internal Medicine 06/15/23 10/22/23 Amrik Mendoza MD [address] [place] [address] PCP - General Family Practice 10/23/23 Amrik Mendoza MD [address] [place] [address] Primary Care Physician Family Practice 10/23/23 Puma Gordon MD [address] [place] [address] Lung Cancer Skull Splitter 10/23/23 Maritza Van NP [address] [place] [address] Referring Physician Nurse Practioner Adult Health 10/23/23 documented as of this encounter
--- OUTSIDE RECORDS SUMMARY | 2024-12-18 13:09 | XMS_ITS | Encounter Summary ---
Author Organization [facility] Address [address] [place] [address] Care Team Providers Care Supervisor Mold Yard Name Role Phone Maricruz Winter MD Primary Care Provider Un available Isha Armstrong MD Primary Care Provider [phone] Cheryl Gallego MD Primary Care Prov ider [facility], Pcp Primary Care Provider Amrik Chadwick MD Unavailable Puma Sy MD Unavailable Maritza Van NP Unavailable Amrik Chadwick MD Primary Care Provider Unav ailable Encounter Details Date Type Department Care Team Description 02/17/2012 Pt. Non Urgent Medic al Question Medicine/Pediatrics - [address] [phone] Maricruz Winter MD Social History Tobacco Use Types Packs/Day Years Used Date Smoking Tobacco: Every Day Cigarettes Smokeless Tobacco: Never Comments:2 cigs a day Alcohol Use Standard Drinks/Week Comments No 0 (1 standard drink = 0.6 oz pur e alcohol) Quit in May Sex Assigned at Date Recorded Not on file documented as of this encounter Progress Notes * Nancy Wolf Rn - 02/19/2012 8:54 AM EDTFrom: LETY SILVESTRE To: Maricruz Winter MD Sent: Sat Feb 17, 2012 10:31 AM Subject: Re-Schedule Annual OBGYN appt. I am trying to reschudle the appointmnet I had to cancel on March 06. The computer gives me [place] options only. I would like to schedule the appt. in [place]. Please change the options so that I can reschedule the appt. Thank you. Lety Silvestre [phone] documented in this encounter Plan of Treatment Not on file documented as of this encounter Visit Diagnoses Not on filedocumented in this encounter Care Teams Supervisor Mold Yard Relationship Specialty Start Date End Date Maricruz Winter MD PCP - General 03/30/11 11/23/21 Isha Armstrong MD [address] [place] [address] PCP - General Internal Medicine 11/24/21 03/02/22 Cheryl Gallego MD [address] [place] [address] PCP - General Internal Medicine 03/03/22 06/14/23 [facility], [place] [id number] PCP - General Internal Medicine 06/15/23 10/22/23 Amrik Mendoza MD [address] [place] [address] PCP - General Family Practice 10/23/23 Amrik Mendoza MD [address] [place] [address] Primary Care Physician Family Practice 10/23/23 Puma Gordon MD [address] [place] [address] Lung Cancer Building Equipment Operator 10/23/23 Maritza Van NP [address] [place] [address] Referring Physician Nurse Practioner Adult [facility] 10/23/23 documented as of this encounter
--- OUTSIDE RECORDS SUMMARY | 2024-12-18 13:09 | XMS_ITS | Encounter Summary ---
Author Organization [facility] Address [address] [place] [address] Care Team Providers Care Strapper And Buffer Name Role Phone Maricruz Winter MD Primary Care Provider Un available Isha Armstrong MD Primary Care Provider [phone] Cheryl Gallego MD Primary Care Prov ider [facility], Pcp Primary Care Provider Amrik Chadwick MD Unavailable Puma Sy MD Unavailable Maritza Van NP Unavailable Amrik Chadwick MD Primary Care Provider Unav ailable Encounter Details Date Type Department Care Team Description 03/15/2016 Pt. Non Urgent Medic al Question Medicine/Pediatrics - [address] [phone] Maricruz Winter MD Social History Tobacco Use [...] on filedocumented in this encounter Care Teams Strapper And Buffer Relationship Specialty Start Date End Date Maricruz Winter MD PCP - General 03/30/11 11/23/21 Isha Armstrong MD [address] [place] [address] PCP - General Internal Medicine 11/24/21 03/02/22 Cheryl Gallego MD [address] [place] [address] PCP - General Internal Medicine 03/03/22 06/14/23 [place] [id number] PCP - General Internal Medicine 06/15/23 10/22/23 Amrik Mendoza MD [address] [place] [address] PCP - General Family Practice 10/23/23 Amrik Mendoza MD [address] [place] [address] Primary Care Physician Family Practice 10/23/23 Puma Gordon MD [address] [place] [address] Lung Cancer Compliance And Control Analyst 10/23/23 Maritza Van NP [address] [place] [address] Referring Physician Nurse Practioner Adult [facility] 10/23/23 documented as of this encounter
--- OUTSIDE RECORDS SUMMARY | 2024-12-18 13:09 | XMS_ITS | Encounter Summary ---
Author Organization [facility] Address [address] [place] [address] Care Team Providers Care Valve Setter Name Role Phone Maricruz Winter MD Primary Care Provider Un available Isha Armstrong MD Primary Care Provider [phone] Cheryl Gallego MD Primary Care Prov ider [facility], Pcp Primary Care Provider Amrik Chadwick MD Unavailable UnavailPuma Nolasco MD Unavailable Maritza Van NP Unavailable Amrik Chadwick MD Primary Care Provider Unav ailable Encounter Details Date Type Department Care Team Description 03/26/2015 Helicopter Technician Report Medical Records [address] [place] [address] Cooper Hurst Social History Tobacco Use Types [...] on filedocumented in this encounter Care Teams Valve Setter Relationship Specialty Start Date End Date Maricruz Winter MD PCP - General 03/30/11 11/23/21 Isha Armstrong MD [address] [place] [address] PCP - General Internal Medicine 11/24/21 03/02/22 Cheryl Gallego MD [address] [place] [address] PCP - General Internal Medicine 03/03/22 06/14/23 [facility], [place] [address] PCP - General Internal Medicine 06/15/23 10/22/23 Amrik Mendoza MD [address] [place] [address] PCP - General Family Practice 10/23/23 Amrik Mendoza MD [address] [place] [address] Primary Care Physician Family Practice 10/23/23 Puma Gordon MD [address] [place] [address] Lung Cancer Raise Drill Operator 10/23/23 Maritza Van NP [address] [place] [address] Referring Physician Nurse Practioner Adult Health 10/23/23 documented as of this encounter
--- OUTSIDE RECORDS SUMMARY | 2024-12-18 13:09 | XMS_ITS | Encounter Summary ---
Author Organization [facility] Address [address] [place] [address] Care Team Providers Care Lead Oxide Mill Tender Name Role Phone Maricruz Winter MD Primary Care Provider Un available Isha Armstrong MD Primary Care Provider [phone] Cheryl Gallego MD Primary Care Prov ider [facility], Pcp Primary Care Provider Amrik Chadwick MD Unavailable Puma Sy MD Unavailable Maritza Van NP Unavailable Amrik Chadwick MD Primary Care Provider Unav ailable Encounter Details Date Type Department Care Team Description 02/29/2016 Telephone Medicine/Pediatrics - [address] [phone] Maricruz Winter MD Social History Tobacco Use [...] filedocumented in this encounter Care Teams Lead Oxide Mill Tender Relationship Specialty Start Date End Date Maricruz Winter MD PCP - General 03/30/11 11/23/21 Isha Armstrong MD [address] [place] [address] PCP - General Internal Medicine 11/24/21 03/02/22 Cheryl Gallego MD [address] [place] [address] PCP - General Internal Medicine 03/03/22 06/14/23 [facility], [address] [address] PCP - General Internal Medicine 06/15/23 10/22/23 Amrik Mendoza MD [address] [place] [address] PCP - General Family Practice 10/23/23 Amrik Mendoza MD [address] [place] [address] Primary Care Physician Family Practice 10/23/23 Puma Gordon MD [address] [place] [address] Lung Cancer Chief Jailer 10/23/23 Maritza Van NP [address] [place] [address] Referring Physician Nurse Practioner Adult Health 10/23/23 documented as of this encounter
[2024-12-18 14:32] LABS: Estimated Average Glucose 114 mg/dL; Hemoglobin A1C 130.2322 umol/L; Hemoglobin A1c % 5.6 % (<6.0); Total Hemoglobin (HGBA1C) 3502.6923 umol/L
[2024-12-18 14:35] LABS: Alanine Aminotransferase 32 U/L (0-31); Alkaline Phosphatase 106 U/L (39-117); Anion Gap 11 (12-20); Aspartate Amino Transferase 24 U/L (5-31); Bilirubin Total 0.3 mg/dL (0.0-1.0); Blood Urea Nitrogen 16 mg/dL (9-16); Calcium 9.7 mg/dL (8.4-10.2); Carbon Dioxide 24 mmol/L (22-29); Chloride 105 mmol/L (96-108); Estimated Glomerular Filt Rate > 60; Glucose Random 91 mg/dL (60-115); Potassium 4.2 mmol/L (3.3-5.1); Sodium 136 mmol/L (135-145); Total Protein 7.3 g/dL (6.5-8.0)
[2024-12-18 14:53] LABS: Microalbum/Creatinine Ratio Ur 6.8 ug/mg cr (<30)
== END 2024-12-18 10:23 | disposition home or self-care (01) ==
LOC: HO.WFDLDS 10:22
PROVIDERS: PCP Family Medicine; Visit Provider Family Medicine
DX: I10 Essential (primary) hypertension (principal); E87.1 Hypo-osmolality and hyponatremia; M96.1 Postlaminectomy syndrome, not elsewhere classified; G89.4 Chronic pain syndrome; Z00.00 Encounter for general adult medical examination without abnormal findings; R73.01 Impaired fasting glucose; Z68.39 Body mass index [BMI] 39.0-39.9, adult
CPT/HCPCS: 36415; 80053; 82043; 82570; 83036; 84443; 96127

== ENCOUNTER 2024-12-18 10:22 | Outpatient (AMB) | payer OTHER, SELFPAY ==
--- NOTE | 2024-12-18 10:28 | A.OFFPC_ITS ---
Vital Signs 12/18/24 10:31 Height 5 ft Weight 204 lb 2 oz BMI 39.9 BP 120/80 Blood Pressure Location Rt brachial Position Sitting Respiration 14 Pulse 75 Pulse Source Pulse Oximeter Temp 97.7 F Temp Source Oral Pulse Oximetry (%) 97 Oxygen Delivery Method Room Air Intake Visit Reasons: F/U chronic conditions Intake Note: patient is schedule for chronic conditions Senior Military Analyst Required: No Allergies Seasonal Allergies Allergy (Severe, Verified 12/18/24 10:29) Itchy Eyes lisinopril Adverse Reaction (Severe, Verified 12/18/24 10:29) Cough pregabalin [From Lyrica] Adverse Reaction (Severe, Verified 12/18/24 10:29) Shortness of Breath celecoxib [From Celebrex] Adverse Reaction (Intermediate, Verified 12/18/24 10:29) Hypertension varenicline [From Chantix] Adverse Reaction (Intermediate, Verified 12/18/24 10:29) Depression Medication List - Last Reconciled 12/18/24 by Amrik Mendoza MD albuterol sulfate 90 mcg/actuation 2 puffs inhalation Q6H PRN 30 days atorvastatin 40 mg PO BEDTIME 90 days bupropion HCl XL 300 mg PO QAM 90 days buspirone 15 mg (1.5 x 10 mg) PO BID cyclobenzaprine 10 mg PO TID cyclosporine 0.05% (Restasis) 1 drp ophthalmic (eye) Q12H diclofenac sodium 1% 4 grams topical QID PRN 30 days diltiazem HCl ER 300 mg PO DAILY duloxetine mg PO DAILY fluticasone propion-salmeterol 250-50 mcg/dose (Wixela Inhub) 1 inh inhalation BID lorazepam (Ativan) 1 mg PO DAILY PRN magnesium gluconate (Mag-G) 27 mg PO BID montelukast (Singulair) 10 mg PO QAM 90 days omega 2-sga-cmn-fish oil 300-1,000 mg (Fish Oil) 1 cap PO QAM omeprazole 20 mg PO QAM 90 days propranolol ER 60 mg PO BEDTIME sodium chloride 1,000 mg PO BID 30 days telmisartan 80 mg PO QAM 90 days Tobacco use date assessed: 01/30/24 Dental Screening Dental Screen Date: 01/30/24 HPI F/U chronic conditions HPI Details 58 y/o female presents to f/u chronic co nditions. Blood pressure today 120/80, 75p. She is on diltiazem and propranolol. Hx of post laminectomy syndrome. She reports ongoing pain, difficulty ambulating. Had been following up with neurospine. [facility] Medical History (Updated 09/01/24 @ 10:21 by JANET Soto) Difficulty urinating Empty sella turcica Polyarthralgia Raynauds phenomenon DDD (degenerative disc disease), cervical Mediastinal mass Asthma Chronic pain syndrome Costochondritis Thrombocytosis TMJ (temporomandibular joint syndrome) Numbness and tingling of left leg Tremors of nervous system Lyme disease Hypersomnia Snoring Hyperlipidemia HTN (hypertension) GERD (gastroesophageal reflux disease) Generalized headaches Back pain Arthritis Surgical History Mediastinal mass (11/08/23) History of mandibular surgery S/P cervical spinal fusion Hx of cervical spine surgery Hx of endoscopy Hx of colonoscopy History of salpingo-oophorectomy History of laparoscopy Hx of arthroscopy Hx of tubal ligation Hx of hysterectomy, total Hx of shoulder surgery Hx of knee surgery Family History Father Heart disease Cancer Prostate cancer Mother Dementia Congestive heart failure Social History Housing: House Are you a primary rn palliative care to a significant other at home: No Do you presently have visiting nurse or other home services: No Alcohol intake: current Patient Tobacco Use Status: Tobacco use Unknown Tobacco use type: Cigarette Cigarettes Per Day: 2 Years Smoked: 26 e-Cigarette/Vaping Use: Never Used Second Hand Smoke Exposure: No service: No Current occupational status: disabled Current occupational exposures/hazards: No Cognitive needs: No Hearing needs: No Vision needs: No Questionnaire PHQ-9 Over the last 2 weeks, how often have you been bothered by any of the following problems? 1. Little interest or pleasure in doing things: several days 2. Feeling down, depressed, or hopeless: several days 3. Trouble falling or staying asleep, or sleeping too much: several days 4. Feeling tired or having little energy: nearly every day 5. Poor appetite or overeating: not at all 6. Feeling bad about yourself - or that you are a failure or have let yourself or your family down: several days 7. Trouble concentrating on things, such as reading the newspaper or watching television: several days 8. Moving or speaking so slowly that other people could have noticed. Or the opposite - being so fidgety or restless that you have been moving around a lot more than usual: not at all 9. Thoughts that you would be better off or of hurting yourself in some way: not at all Total score: 8 Depression Screening Interpretation: Positive Depression Screening Follow-up: In treatment Depression Screening Done: Yes 99619 - PHQ-9 Billing: Yes Source: Developed by Drs. Celso Blake, Sarah Abreu, Shravan Dominique and colleagues, with an educational allan from [employer] Thrive Questionnaire Date Thrive assessed: 09/10/24 I am a: Patient What is your living situation today?: I have a steady place to live Within the past 12 months, did the food you bought not last and you didn't have the money to get more?: Never true Within the past 12 months, did you worry whether your food would run out before you got money to buy more?: Never true Do you have trouble paying for medicines?: No Do you have trouble getting transportation to medical appointments?: No Do you have trouble paying your heating and electricity bill?: No Do you have trouble taking care of your child, family member or friend?: No Do you have trouble with day-to-day activities such as bathing, preparing meals, shopping, managing finances, etc.?: Yes Are you currently unemployed and looking for a job?: I choose not to answer this question Are you interested in more education?: No Please select the resources that you would like help with: None Currently or been in a relationship where the following occur: No concerns reported THRIVE Score: 0 RAFAEL-7 AMB Questionnaire RAFAEL-7 Date RAFAEL - 7 assessed: 12/18/24 Feeling nervous, anxious, or on edge: 1 = Several days Not being able to stop or control worryin = Several days Worrying too much about different things: 1 = Several days Trouble relaxin = Nearly every day Being so restless that it is hard to sit still: 0 = Not at all Becoming easily annoyed or irritable: 3 = Nearly every day Feeling afraid as if something awful might happen: 0 = Not at all Total RAFAEL-7 score (0-4 normal; 5-9 mild; 10-14 moderate; 15-21 severe): 9 Source: Developed by Drs. Celso Blake, Sarah Abreu, Shravan Dominique and colleagues, with an educational allan from [employer] RAFAEL-7 Assessment Billing RAFAEL-7 Assessment Tool: RAFAEL-7 Assessment 92400 Review of Systems Const Denies chills, Denies fatigue, Denies fever(s), Denies headache(s) and Denies weakness ENT Denies dizziness and Denies headache(s) Card Denies dyspnea Resp Denies cough, Denies dyspnea, Denies wheezing and Denies other (shortness of breath) Musc Denies numbness and Denies tingling Neuro Denies dizziness, Denies headache(s), Denies numbness, Denies tingling and Denies weakness Psych Denies anxiety and Denies depression Endo Denies fatigue Aller/Immun Denies wheezing Physical exam (Primary Care) Vital Signs: Last Vital Signs Temp 97.7 F 12/18/24 10:31 Pulse 75 12/18/24 10:31 Resp 14 12/18/24 10:31 BP 120/80 12/18/24 10:31 Pulse Ox 97 12/18/24 10:31 Oxygen Delivery Method Room Air 12/18/24 10:31 BMI result Body Mass Index 39.9 Tobacco/Smoking Status: Tobacco use Status Tobacco use date assessed 01/30/24 12/18/24 10:35 Patient Tobacco Use Status Tobacco use Unknown 12/18/24 10:35 Tobacco use type Cigarette 12/18/24 10:35 e-Cigarette/Vaping Use Never Used 12/18/24 10:35 Depression Screening Interpretation: Positive Depression Screening Follow-up: In treatment Thrive Assessment: Date of Thrive Assessment Date Thrive assessed 09/10/24 12/18/24 10:35 Currently or been in a relationship where the following occur: No concerns reported Const General: well developed; No acute distress Nutritional Appearance: well nourished Orientation/consciousness: patient oriented x3 HENMT Head: Yes normocephalic and Yes atraumatic Eyes General: appearance normal, both eyes and all related structures Pupils: Equal, round and reactive pupils present EOM: EOMs intact bilaterally Resp Effort & Inspection: normal respiratory effort Auscultation: clear to auscultation bilaterally Cardio Rate: regular rate Rhythm: regular rhythm Heart sounds: S1 normal heart sound present, S2 normal heart sound present, no gallops, no murmurs and no rubs Neuro General: patient oriented x3 and gait normal Cranial nerves: Yes Equal, round and reactive pupils present Psych Affect: normal affect Coding Level of Care Code Est Pt Level 4 (78090) Diagnoses Primary hypertension I10 Hypertension type: primary hypertension Hyponatremia E87.1 Post laminectomy syndrome M96.1 Chronic pain syndrome G89.4 Additional Codes RAFAEL-7 Assessment Billing - RAFAEL-7 Assessment Tool: RAFAEL-7 Assessment 59460 ([id number]) PHQ-9 - 54383 - PHQ-9 Billing: Yes ([id number]) Assessment & Plan Assessment & Plan (1) HTN (hypertension): Code(s): I10 - Essential (primary) hypertension Category: Medical Qualifiers: Hypertension type: primary hypertension Qualified Code(s): I10 - Essential (primary) hypertension Plan: Blood?pressure?is?well?controlled.??Goal?is?less?than?140/90 Continue?current?medications (2) Hyponatremia: Code(s): E87.1 - Hypo-osmolality and hyponatremia Category: Medical Plan: History?of?hyponatremia Per Dr Martin: Went over results of stimulation testing which were normal showing the patient does not need steroids. She is scheduled for an MRI of the pituitary in the future to rule out a pituitary mass. If the MRI does not show any pituitary mass, no further endocrine follow-up or testing is necessary at this point and the follow-up visit can be canceled no?mass at pituitary. She?remains?on sodium?chloride?tablets. Will?recheck?electrolytes Stable (3) Post laminectomy syndrome: Code(s): M96.1 - Postlaminectomy syndrome, not elsewhere classified Category: Medical Plan: Followed?by?neuro?spine?& pain?management. Had?plan?spinal?stimulator?or?injection?therapy ?but?these?were?denied?by?her?insurance.??She?is?planning?on?changing?insurance Follow-up?with?pain?management?as?recommended (4) Chronic pain syndrome: Code(s): G89.4 - Chronic pain syndrome Category: Medical Plan: As above Orders: Orders Comprehensive Met. Panel Today E87.1 - Hypo-osmolality and hyponatremia Microalbumin, Random (w Creat) Today E87.1 - Hypo-osmolality and hyponatremia, I10 - Essential (primary) hypertension TSH reflex Free T4 Today E87.1 - Hypo-osmolality and hyponatremia, Z00.00 - Encounter for general adult medical examination without abnormal findings Medications: Changed From cyclobenzaprine 10 mg PO TID 84 tabs 0RF M79.18 - Myalgia, other site To cyclobenzaprine 10 mg PO TID 30 days 90 tabs 3RF M79.18 - Myalgia, other site
[2024-12-18 10:31] VITALS: BP 120/80; PULSE 75; RESP 14; TEMP 36.5; O2SAT 97; BMI 39.9
--- OUTSIDE RECORDS SUMMARY | 2024-12-18 11:58 | XMS_ITS | Encounter Summary ---
Author Organization [facility] Address [address] [place] [address] Care Team Providers Care Poultry Processing Supervisor Name Role Phone Maricruz Winter MD Primary Care Provider Un available Isha Armstrong MD Primary Care Provider [phone] Cheryl Gallego MD Primary Care Prov ider [facility], Pcp Primary Care Provider Amrik Chadwick MD Unavailable Puma Sy MD Unavailable Maritza Van NP Unavailable Amrik Chadwick MD Primary Care Provider Unav ailable Encounter Details Date Type Department Care Team Description 10/14/2014 Pt. Non Urgent Medic al Question Medicine/Pediatrics - [address] [address] Maricruz Winter MD Social History Tobacco Use Types Packs/Day Years Used Date Smoking Tobacco: Every Day Cigarettes 0.3 Smokeless Tobacco: Never Comments:5 cigs/day - decrea sing; also e-cig Alcohol Use Standard Drinks/Week Comments No 0 (1 standard drink = 0.6 oz pur e alcohol) Quit in May Sex Assigned at Date Recorded Not on file documented as of this encounter Progress Notes * Nancy Wolf Rn - 10/14/2014 11:26 AM ESTFrom: Lety Chi To: Maricruz Winter MD Sent: 10/14/2014 11:15 AM EST Subject: Blood Pressure Meds and Opionion on [facility] Dr. Winter told me to drop her a line about my blood pressure. II sent a letter last Sunday and have not heard back. I will need an adjustment of my Lisinopril to a higher dose because my blood pressure has been highfor several weeks. I also asked what Dr. Winter's opinion is of [facility]. Thank you. Lety Chi documented in this encounter Plan of Treatment Not on file documented as of this encounter Visit Diagnoses Not on filedocumented in this encounter Care Teams Poultry Processing Supervisor Relationship Specialty Start Date End Date Maricruz Winter MD PCP - General 03/30/11 11/23/21 Isha Armstrong MD [address] [place] [address] PCP - General Internal Medicine 11/24/21 03/02/22 Cheryl Gallego MD [address] [place] [address] PCP - General Internal Medicine 03/03/22 06/14/23 [facility], [place] [address] PCP - General Internal Medicine 06/15/23 10/22/23 Amrik Mendoza MD [address] [place] [address] PCP - General Family Practice 10/23/23 Amrik Mendoza MD [address] [place] [address] Primary Care Physician Family Practice 10/23/23 Puma Gordon MD [address] [place] [address] Lung Cancer Sewer Pipe Layer 10/23/23 Maritza Van, KINJAL [address] [place] [address] Referring Physician Nurse Practioner Adult Health 10/23/23 documented as of this encounter
--- OUTSIDE RECORDS SUMMARY | 2024-12-18 11:58 | XMS_ITS | Encounter Summary ---
Author Organization [facility] Address [address] [place] [address] Care Team Providers Care Ve Teacher Name Role Phone Maricruz Winter MD Primary Care Provider Un available Isha Armstrong MD Primary Care Provider [phone] Cheryl Gallego MD Primary Care Prov ider [facility], Pcp Primary Care Provider Amrik Chadwick MD Unavailable Puma Sy MD Unavailable Maritza Van NP Unavailable Amrik Chadwick MD Primary Care Provider Unav ailable Encounter Details Date Type Department Care Team Description 03/04/2020 Pt. Non Urgent Medic al Question Physiatry - [address] [address] Cooper Smith DO Social History Tobacco Use Types Packs/Day Years Used Date Smoking Tobacco: Former Cigarettes 0.3 Q uit: 11/28/2018 Smokeless Tobacco: Never Alcohol Use Standard Drinks/Week Comments No 0 (1 standard drink = 0.6 oz pur e alcohol) Quit in May Sex Assigned at Date Recorded Not on file documented as of this encounter Plan of Treatment Not on file documented as of this encounter Visit Diagnoses Not on filedocumented in this encounter Care Teams Ve Teacher Relationship Specialty Start Date End Date Maricruz Winter MD PCP - General 03/30/11 11/23/21 Isha Armstrong MD [address] [place] [address] PCP - General Internal Medicine 11/24/21 03/02/22 Cheryl Gallego MD [address] [place] [address] PCP - General Internal Medicine 03/03/22 06/14/23 [facility], [place] [address] PCP - General Internal Medicine 06/15/23 10/22/23 mArik Mendoza MD [address] [place] [address] PCP - General Family Practice 10/23/23 Amrik Mendoza MD [address] [place] [address] Primary Care Physician Family Practice 10/23/23 Puma Gordon MD [address] [place] [address] Lung Cancer Patient Relations Representative 10/23/23 Maritza Van NP [address] [place] [address] Referring Physician Nurse Practioner Adult Health 10/23/23 documented as of this encounter
--- OUTSIDE RECORDS SUMMARY | 2024-12-18 11:58 | XMS_ITS | Encounter Summary ---
Author Organization [facility] Address [address] [place] [address] Care Team Providers Care Cosmetic Manager Name Role Phone Cheryl Gallego MD Primary Care Prov ider [facility], Pcp Primary Care Provider Amrik Chadwick MD Unavailable Puma Sy MD Unavailable Maritza Van NP Unavailable Amrik Chadwick MD Primary Care Provider Unav ailable Encounter Details Date Type Department Care Team Description 06/02/2022 Refill Medicine/Pediatrics - [address] [address] Maricruz Winter MD Social History Tobacco Use Types Packs/Day Years Used Date Smoking Tobacco: Former Cigarettes 0.3 Q uit: 11/28/2018 Smokeless Tobacco: Never Alcohol Use Standard Drinks/Week Comments No 0 (1 standard drink = 0.6 oz pur e alcohol) Quit in May Sex Assigned at Date Recorded Not on file documented as of this encounter Miscellaneous Notes * Telephone Encounter - Francia Blake M.A. - 06/06/2022 3:21 PM EDT Last office visit 03/09/22 Next office visit 07/10/22 with Ayla Sparks Pt had last filled on 09/12/21 for 270 tabs. Will you fill? * Telephone Encounter - Pablo Hooperkenji - 06/06/2022 2:31 PM EDT Patient calling about status of this message. FYI the patient has an upcoming appointment on 07/10/2022. documented in this encounter Plan of Treatment Not on file documented as of this encounter Visit Diagnoses Not on filedocumented in this encounter Care Teams Cosmetic Manager Relationship Specialty Start Date End Date Cheryl Gallego MD [address] [place] [address] PCP - General Internal Medicine 03/03/22 06/14/23 [facility] Pcp [address] [place] [address] PCP - General Internal Medicine 06/15/23 10/22/23 Amrik Mendoza MD [address] [place] [address] PCP - General Family Practice 10/23/23 Amrik Mendoza MD [address] [place] [address] Primary Care Physician Family Practice 10/23/23 Puma Gordon MD [address] [place] [address] Lung Cancer Embryology Professor 10/23/23 Maritza Van NP [address] [place] [address] Referring Physician Nurse Practioner Adult Health 10/23/23 documented as of this encounter
--- OUTSIDE RECORDS SUMMARY | 2024-12-18 11:58 | XMS_ITS | Encounter Summary ---
Author Organization [facility] Address [address] [place] [address] Care Team Providers Care Passenger Agent Name Role Phone Maricruz Winter MD Primary Care Provider Un available Maricruz Winter MD Primary Care Provider Un available Maricruz Winter MD Primary Care Provider Un available Isha Armstrong MD Primary Care Provider [phone] Cheryl Gallego MD Primary Care Prov ider [facility], Pcp Primary Care Provider Amrik Chadwick MD Unavailable Puma Sy MD Unavailable Maritza Van NP Unavailable Amrik Chadwick MD Primary Care Provider Unav ailable Encounter Details Date Type Department Care Team Description 01/19/2011 Refill Medicine/Pediatrics - [address] [address] Maricruz Winter MD Social History Tobacco Use Types Packs/Day Years Used Date Smoking Tobacco: Every Day Cigarettes 0.5 Smokeless Tobacco: Never Comments:7 cigs a day Alcohol Use Standard Drinks/Week Comments No 0 (1 standard drink = 0.6 oz pur e alcohol) Quit in May Sex Assigned at Date Recorded Not on file documented as of this encounter Miscellaneous Notes * Telephone Encounter - Lin Wan - 01/19/2011 10:26 AM EDT Last refill 12/07/10 Controlled substance contract and last issue date of medication reviewed. Patient is due for medication. * Telephone Encounter - Lin Diego Soco - 01/19/2011 10:23 AM EDTFrom: LETY SILVESTRE To: Maricruz Winter Sent: SunJanuary 19, 2011 9:42 AM Subject: Medication Renewal Request Original authorizing provider: MD Lety Schwartz would like a refill of the following medications: hydrocodone-acetaminophen (LORTAB) 10-500 MG per tablet [Maricruz Winter MD] Preferred pharmacy: [id number] Comment: Medication renewals requested in this message routed to other providers: documented in this encounter Plan of Treatment Not on file documented as of this encounter Visit Diagnoses Not on filedocumented in this encounter Care Teams Passenger Agent Relationship Specialty Start Date End Date Maricruz Winter MD PCP - General 03/30/11 11/23/21 Maricruz Winter MD PCP - General 02/21/11 03/29/11 Maricruz Winter MD PCP - General 09/01/00 01/29/11 Isha Armstrong MD [address] [place] [address] PCP - General Internal Medicine 11/24/21 03/02/22 Cheryl Gallego MD [address] [place] [address] PCP - General Internal Medicine 03/03/22 06/14/23 [facility], Pcp [address] [place] [address] PCP - General Internal Medicine 06/15/23 10/22/23 Amrik Mendoza MD [address] [place] [address] PCP - General Family Practice 10/23/23 Amrik Mendoza MD [address] [place] [address] Primary Care Physician Family Practice 10/23/23 Puma Gordon MD [address] [place] [address] Lung Cancer Site Specialist 10/23/23 Maritza Van NP [address] [place] [address] Referring Physician Nurse Practioner Adult Health 10/23/23 documented as of this encounter
--- OUTSIDE RECORDS SUMMARY | 2024-12-18 11:58 | XMS_ITS | Encounter Summary ---
Author Organization [facility] Address [address] [place] [address] Care Team Providers Care Superintendent Warehouse Name Role Phone Maricruz Winter MD Primary Care Provider Un available Isha Armstrong MD Primary Care Provider [phone] Cheryl Gallego MD Primary Care Prov ider [facility], Pcp Primary Care Provider Amrik Chadwick MD Unavailable Puma Sy MD Unavailable Maritza Van NP Unavailable Amrik Chadwick MD Primary Care Provider Unav ailable Encounter Details Date Type Department Care Team Description 06/19/2017 Pt. Non Urgent Medic al Question Medicine/Pediatrics - [address] [address] Lalit Finley PA-C Social History Tobacco Use Types Packs/Day Years Used Date Smoking Tobacco: Every Day Cigarettes 0.3 Smokeless Tobacco: Never Comments:5 cigs/day - decrea sing; also e-cig Alcohol Use Standard Drinks/Week Comments No 0 (1 standard drink = 0.6 oz pur e alcohol) Quit in May Sex Assigned at Date Recorded Not on file documented as of this encounter Progress Notes * Shannan Mcmahon L.P.N. - 06/20/2017 8:42 AM EDTFrom: Lety Chi To: Lalit Finley PA-C Sent: 06/19/2017 6:39 PM EDT Subject: stomach pain Hi Lalit, I am still having severe pain in my left lower quadrant. My colonoscopy has been scheduled for August 01, with a consult date of July 18. As I understood when we talked, you felt it important toget this done as soon as possible. Seeing that the pain has persisted, is there any way you can getthe colonoscopy and consult dates moved up? Lety Chi [phone] documented in this encounter Plan of Treatment Not on file documented as of this encounter Visit Diagnoses Not on filedocumented in this encounter Care Teams Superintendent Warehouse Relationship Specialty Start Date End Date Maricruz Winter MD PCP - General 03/30/11 11/23/21 Isha Armstrong MD [address] [place] [address] PCP - General Internal Medicine 11/24/21 03/02/22 Cheryl Gallego MD [address] [place] [address] PCP - General Internal Medicine 03/03/22 06/14/23 [facility], [place] [address] PCP - General Internal Medicine 06/15/23 10/22/23 Amrik Mendoza MD [address] [place] [address] PCP - General Family Practice 10/23/23 Amrik Mendoza MD [address] [place] [address] Primary Care Physician Family Practice 10/23/23 Puma Gordon MD [address] [place] [address] Lung Cancer Site Director 10/23/23 Maritza Van, KINJAL [address] [place] [address] Referring Physician Nurse Practioner [facility] 10/23/23 documented as of this encounter
--- OUTSIDE RECORDS SUMMARY | 2024-12-18 11:58 | XMS_ITS | Encounter Summary ---
Author Organization [facility] Address [address] [place] [address] Care Team Providers Care Cap Sizer Name Role Phone Maricruz Winter MD Primary Care Provider Un available Isha Armstrong MD Primary Care Provider [phone] Cheryl Gallego MD Primary Care Prov ider [facility], Pcp Primary Care Provider Amrik Chadwick MD Unavailable Puma Sy MD Unavailable Maritza Van NP Unavailable Amrik Chadwick MD Primary Care Provider Unav ailable Encounter Details Date Type Department Care Team Description 03/18/2014 Pt. Non Urgent Medic al Question Physiatry - [address] [address] Cooper Smith DO Social History Tobacco Use Types Packs/Day Years Used Date Smoking Tobacco: Every Day Cigarettes Smokeless Tobacco: Never Comments:less than 1/2 ppd Alcohol Use Standard Drinks/Week Comments No 0 (1 standard drink = 0.6 oz pur e alcohol) Quit in May Sex Assigned at Date Recorded Not on file documented as of this encounter Progress Notes * Preethi Garcia M.A. - 03/18/2014 3:54 PM EDTFrom: Lety Chi To: Cooper Smith DO Sent: 03/18/2014 3:52 PM EDT Subject: Cortisone I recently had surgery on my left shoulder. As a result, my right shoulder is in a lot of pain. 's Assisstant, Wale, suggested that I might need a cortisone shot. I would like to schedulean appt. for a cortisone shot with Dr. Smith. He knows my history. Lety Chi [phone] documented in this encounter Plan of Treatment Not on file documented as of this encounter Visit Diagnoses Not on filedocumented in this encounter Care Teams Cap Sizer Relationship Specialty Start Date End Date Maricruz Winter MD PCP - General 03/30/11 11/23/21 Isha Armstrong MD [address] [place] [address] PCP - General Internal Medicine 11/24/21 03/02/22 Cheryl Gallego MD [address] [place] [address] PCP - General Internal Medicine 03/03/22 06/14/23 [facility], [place] [address] PCP - General Internal Medicine 06/15/23 10/22/23 Amrik Mendoza MD [address] [place] [address] PCP - General Family Practice 10/23/23 Amrik Mendoza MD [address] [place] [address] Primary Care Physician Family Practice 10/23/23 Puma Gordon MD [address] [place] [address] Lung Cancer Log Roller 10/23/23 Maritza Van NP [address] [place] [address] Referring Physician Nurse Practioner Adult Health 10/23/23 documented as of this encounter
--- OUTSIDE RECORDS SUMMARY | 2024-12-18 11:58 | XMS_ITS | Encounter Summary ---
Author Organization [facility] Address [address] [place] [address] Care Team Providers Care Clinical Coder Name Role Phone Isha Armstrong MD Primary Care Provider [phone] Cheryl Gallego MD Primary Care Prov ider [facility], Pcp Primary Care Provider Amrik Chadwick MD Unavailable Puma Sy MD Unavailable Maritza Van NP Unavailable Amrik Chadwick MD Primary Care Provider Unav ailable Encounter Details Date Type Department Care Team Description 12/28/2021 Pt. Non Urgent Medical Question Adult Medicine [address] [id number] Isha Armstrong MD [address] [place] [address] [id number] Social History Tobacco Use Types Packs/Day Years Used Date Smoking Tobacco: Former Cigarettes 0.3 Q uit: 11/28/2018 Smokeless Tobacco: Never Alcohol Use Standard Drinks/Week Comments No 0 (1 standard drink = 0.6 oz pur e alcohol) Quit in May Sex Assigned at Date Recorded Not on file documented as of this encounter Progress Notes * Elif Loja M.A. - 12/28/2021 2:23 PM EDT Dionicio msg sent documented in this encounter Miscellaneous Notes * Telephone Encounter - Elif Loja M.A. - 12/28/2021 2:08 PM EDTFrom: Lety Chi To: Bertrand Armstrong Sent: 12/28/2021 2:07 PM EDT Subject: Hand and arm tremors I would like get a prescription for arm and hand tremors. It is getting difficult to do certain tasks. If you look at my history you will see I have conditions that could cause the tremors. Thank you. documented in this encounter Plan of Treatment Not on file documented as of this encounter Visit Diagnoses Not on filedocumented in this encounter Care Teams Clinical Coder Relationship Specialty Start Date End Date Isha Armstrong MD [address] [place] [address] PCP - General Internal Medicine 11/24/21 03/02/22 Cheryl Gallego MD [address] [place] [address] PCP - General Internal Medicine 03/03/22 06/14/23 [facility], Pcp [address] [place] [address] PCP - General Internal Medicine 06/15/23 10/22/23 Amrik Mendoza MD [address] [place] [address] PCP - General Family Practice 10/23/23 Amrik Mendoza MD [address] [place] [address] Primary Care Physician Family Practice 10/23/23 Puma Gordon MD [address] [place] [address] Lung Cancer Swatch Folder 10/23/23 Maritza Van, KINJAL [address] [place] [address] Referring Physician Nurse Practioner [facility] 10/23/23 documented as of this encounter
--- OUTSIDE RECORDS SUMMARY | 2024-12-18 11:58 | XMS_ITS | Encounter Summary ---
Author Organization [facility] Address [address] [place] [address] Care Team Providers Care Studio Couch Frame Builder Name Role Phone Maricruz Winter MD Primary Care Provider Un available Isha Armstrong MD Primary Care Provider [phone] Cheryl Gallego MD Primary Care Prov ider On License Of [facility], Pcp Primary Care Provider Amrik Chadwick MD Unavailable Puma Sy MD Unavailable Maritza Van NP Unavailable Amrik Chadwick MD Primary Care Provider Unav ailable Encounter Details Date Type Department Care Team Description 06/04/2017 Transfer Records Medical Records [address] [place] [address] Social History Tobacco Use Types Packs/Day Years [...] on filedocumented in this encounter Care Teams Studio Couch Frame Builder Relationship Specialty Start Date End Date Maricruz Winter MD PCP - General 03/30/11 11/23/21 Isha Armstrong MD [address] [place] [address] PCP - General Internal Medicine 11/24/21 03/02/22 Cheryl Gallego MD [address] [place] [address] PCP - General Internal Medicine 03/03/22 06/14/23 [place] [address] PCP - General Internal Medicine 06/15/23 10/22/23 Amrik Mendoza MD [address] [place] [address] PCP - General Family Practice 10/23/23 Amrik Mendoza MD [address] [place] [address] Primary Care Physician Family Practice 10/23/23 Puma Gordon MD [address] [place] [address] Lung Cancer Community Living Instructor 10/23/23 Maritza Van NP [address] [place] [address] Referring Physician Nurse Practioner Adult Health 10/23/23 documented as of this encounter
--- OUTSIDE RECORDS SUMMARY | 2024-12-18 11:58 | XMS_ITS | Encounter Summary ---
Author Organization [employer] [facility] Address [address] [place] [address] Care Team Providers Care File Conversion Operator Name Role Phone Maricruz Winter MD Primary Care Provider Un available Isha Armstrong MD Primary Care Provider [phone] Cheryl Gallego MD Primary Care Prov ider [facility], Pcp Primary Care Provider Amrik Chadwick MD Unavailable Puma Sy MD Unavailable Maritza Van NP Unavailable Amrik Chadwick MD Primary Care Provider Unav ailable Encounter Details Date Type Department Care Team Description 10/26/2014 Pt. Non Urgent Medic al Question Medicine/Pediatrics - [address] [phone] Maricruz Winter MD Social History Tobacco Use Types Packs/Day Years Used Date Smoking Tobacco: Every Day Cigarettes 0.3 Smokeless Tobacco: Never Comments:5 cigs/day - decrea sing; also e-cig Alcohol Use Standard Drinks/Week Comments No 0 (1 standard drink = 0.6 oz pur e alcohol) Quit in May Sex Assigned at Date Recorded Not on file documented as of this encounter Progress Notes * Cindy tSein M.A. - 10/26/2014 2:24 PM ESTFrom: Lety Chi To: Maricruz Winter MD Sent: 10/26/2014 2:02 PM EST Subject: New Hydrochlorothiazid Presription I started using the above- referenced medication for high blood pressure on October 22. By October 23 I was dizzy, feeling sick to my stomach, and really fatigued. I still took it on Sunday the . I did not take any October 25 and today. I still am feeling the same symptoms. I tried to drink as much water as I could and had a banana for potassium ever day. My blood pressure for yesterday was 133/97 in the a.m. and 131/104 in the p.m. So far today it is 126/105. Please let me know what I should do. Thank you, Lety Chi documented in this encounter Plan of Treatment Not on file documented as of this encounter Visit Diagnoses Not on filedocumented in this encounter Care Teams File Conversion Operator Relationship Specialty Start Date End Date Maricruz Winter MD PCP - General 03/30/11 11/23/21 Isha Armstrong MD [address] [place] [address] PCP - General Internal Medicine 11/24/21 03/02/22 Cheryl Gallego MD [address] [place] [address] PCP - General Internal Medicine 03/03/22 06/14/23 [facility], [place] [id number] PCP - General Internal Medicine 06/15/23 10/22/23 Amrik eMndoza MD [address] [place] [address] PCP - General Family Practice 10/23/23 Amrik Mendoza MD [address] [place] [address] Primary Care Physician Family Practice 10/23/23 Puma Gordon MD [address] [place] [address] Lung Cancer Corporate Security Manager 10/23/23 Maritza Van NP [address] [place] [address] Referring Physician Nurse Practioner Adult Health 10/23/23 documented as of this encounter
--- OUTSIDE RECORDS SUMMARY | 2024-12-18 11:58 | XMS_ITS | Encounter Summary ---
Author Organization [employer] [facility] Address [address] [place] [address] Care Team Providers Care Combination Machine Tool Operator Name Role Phone Maricruz Winter MD Primary Care Provider Un available Isha Armstrong MD Primary Care Provider [phone] Cheryl Gallego MD Primary Care Prov ider [facility], [facility], Pcp Primary Care Provider Amrik Chadwick MD Unavailable Puma Sy MD Unavailable Maritza Van NP Unavailable Amrik Chadwick MD Primary Care Provider Unav ailable Encounter Details Date Type Department Care Team Description 05/17/2018 Pt. Non Urgent Medic al Question Medicine/Pediatrics - [address] [address] Maricruz Winter MD Social History Tobacco Use [...] of this encounter Progress Notes * Cindy Stein M.A. - 05/17/2018 9:59 AM EDTFrom: Lety Chi To: Maricruz Winter MD Sent: 05/17/2018 9:58 AM EDT Subject: Rash I have an itchy rash underneath both breasts. It is very itchy. I've been using hydrocortisone and triple anti biotic ointment for about a week, and the rash is still there. I think it is a yeast infection. Are there any [id number] products you can recommend, or a prescription I can use? Thank you. Lety Chi documented in this encounter Plan of Treatment Not on file documented as of this encounter Visit Diagnoses Not on filedocumented in this encounter Care Teams Combination Machine Tool Operator Relationship Specialty Start Date End Date Maricruz Winter MD PCP - General 03/30/11 11/23/21 Isha Armstrong MD [address] [place] [address] PCP - General Internal Medicine 11/24/21 03/02/22 Cheryl Gallego MD [address] [place] [address] PCP - General Internal Medicine 03/03/22 06/14/23 [facility], [facility], [place] [address] PCP - General Internal Medicine 06/15/23 10/22/23 Amrik Mendoza MD [address] [place] [address] PCP - General Family Practice 10/23/23 Amrik Mendoza MD [address] [place] [address] Primary Care Physician Family Practice 10/23/23 Puma Gordon MD [address] [place] [address] Lung Cancer Teletypesetter 10/23/23 Maritza Van NP [address] [place] [address] Referring Physician Nurse Practioner [facility] 10/23/23 documented as of this encounter
--- OUTSIDE RECORDS SUMMARY | 2024-12-18 11:58 | XMS_ITS | Encounter Summary ---
Author Organization [facility] Address [address] [place] [address] Care Team Providers Care Cushion Spring Assembler Name Role Phone Maricruz Winter MD Primary Care Provider Un available Ihsa Armstrong MD Primary Care Provider [phone] Cheryl Gallego MD Primary Care Prov ider [facility], Pcp Primary Care Provider Amrik Chadwick MD Unavailable Puma Sy MD Unavailable Maritza Van NP Unavailable Amrik Chadwick MD Primary Care Provider Unav ailable Encounter Details Date Type Department Care Team Description 02/02/2020 Irrigator Sprinkling System Report Medical Records [address] [place] [address] [place] Social History Tobacco Use Types Packs/Day Years [...] on filedocumented in this encounter Care Teams Cushion Spring Assembler Relationship Specialty Start Date End Date Maricruz Winter MD PCP - General 03/30/11 11/23/21 Isha Arsmtrong MD [address] [place] [address] PCP - General Internal Medicine 11/24/21 03/02/22 Cheryl Gallego MD [address] [place] [address] PCP - General Internal Medicine 03/03/22 06/14/23 [facility], [place] [address] PCP - General Internal Medicine 06/15/23 10/22/23 Amrik Mendoza MD [address] [place] [address] PCP - General Family Practice 10/23/23 Amrik Mendoza MD [address] [place] [address] Primary Care Physician Family Practice 10/23/23 Puma Gordon MD [address] [place] [address] Lung Cancer Frit Burner 10/23/23 Maritza Van NP [address] [place] [address] Referring Physician Nurse Practioner Adult Health 10/23/23 documented as of this encounter
--- OUTSIDE RECORDS SUMMARY | 2024-12-18 11:58 | XMS_ITS | Encounter Summary ---
Author Organization [facility] Address [address] [place] [address] Care Team Providers Care Urology Teacher Name Role Phone Maricruz Winter MD Primary Care Provider Un available Isha Armstrong MD Primary Care Provider [phone] Cheryl Gallego MD Primary Care Prov ider [facility], Pcp Primary Care Provider Armik Chadwick MD Unavailable Puma Sy MD Unavailable Maritza Van NP Unavailable Amrik Chadwick MD Primary Care Provider Unav ailable Encounter Details Date Type Department Care Team Description 10/06/2014 PILE FABRIC KNITTER/MassPat Report Medical Records [address] [place] [address] Abstract, Provider Social History Tobacco Use Types Packs/Day Years [...] on filedocumented in this encounter Care Teams Urology Teacher Relationship Specialty Start Date End Date Maricruz Winter MD PCP - General 03/30/11 11/23/21 Isha Armstrong MD [address] [place] [address] PCP - General Internal Medicine 11/24/21 03/02/22 Cheryl Gallego MD [address] [place] [address] PCP - General Internal Medicine 03/03/22 06/14/23 [facility], [place] [address] PCP - General Internal Medicine 06/15/23 10/22/23 Amrik Mendoza MD [address] [place] [address] PCP - General Family Practice 10/23/23 Amrik Mendoza MD [address] [place] [address] Primary Care Physician Family Practice 10/23/23 Puma Gordon MD [address] [place] [address] Lung Cancer Manager Scheduling 10/23/23 Maritza Van NP [address] [place] [address] Referring Physician Nurse Practioner Adult Health 10/23/23 documented as of this encounter
--- OUTSIDE RECORDS SUMMARY | 2024-12-18 11:58 | XMS_ITS | Encounter Summary ---
Author Organization [facility] Address [address] [place] [address] Care Team Providers Care Corporate Operations Compliance Manager Name Role Phone Maricruz Winter MD Primary Care Provider Un available Isha Armstrong MD Primary Care Provider [phone] Cheryl Gallego MD Primary Care Prov ider [facility], Pcp Primary Care Provider Amrik Chadwick MD Unavailable UnavailPuma Nolasco MD Unavailable Maritza Van NP Unavailable Amrik Chadwick MD Primary Care Provider Unav ailable Encounter Details Date Type Department Care Team Description 01/19/2017 Brake Repairer Report Medical Records [address] [place] [address] Sameera Granados Social History Tobacco Use Types Packs/Day Years [...] on filedocumented in this encounter Care Teams Corporate Operations Compliance Manager Relationship Specialty Start Date End Date Maricruz Winter MD PCP - General 03/30/11 11/23/21 Isha Armstrong MD [address] [place] [address] PCP - General Internal Medicine 11/24/21 03/02/22 Cheryl Gallego MD [address] [place] [address] PCP - General Internal Medicine 03/03/22 06/14/23 [facility], [place] [address] PCP - General Internal Medicine 06/15/23 10/22/23 Amrik Mendoza MD [address] [place] [address] PCP - General Family Practice 10/23/23 Amrik Mendoza MD [address] [place] [address] Primary Care Physician Family Practice 10/23/23 Puma Gordon MD [address] [place] [address] Lung Cancer Transformer Coil Winder 10/23/23 Maritza Van NP [address] [place] [address] Referring Physician Nurse Practioner Adult Health 10/23/23 documented as of this encounter
--- OUTSIDE RECORDS SUMMARY | 2024-12-18 11:58 | XMS_ITS | Encounter Summary ---
Author Organization [id number] Address [address] [place] [address] Care Team Providers Care Reed Maker Name Role Phone Maricruz Winter MD Primary Care Provider Un available Isha Armstrong MD Primary Care Provider [phone] Cheryl Gallego MD Primary Care Prov ider [facility], Pcp Primary Care Provider Amrik Chadwick MD Unavailable Puma Sy MD Unavailable Maritza Van NP Unavailable Amrik Chadwick MD Primary Care Provider Unav ailable Encounter Details Date Type Department Care Team Description 02/05/2018 Pt. Non Urgent Medic al Question Medicine/Pediatrics - [address] [address] Maricruz Winter MD Social History Tobacco Use [...] of this encounter Progress Notes * Shannan GeorgeP.NNicholas - 02/05/2018 10:26 AM EDTFrom: Lety Chi To: Maricruz Winter MD Sent: 02/05/2018 10:26 AM EDT Subject: Changing Insurance We are switching to [employer] health insurance as of February 24. I am checking to see if [facility] accepts this health insurance? Thank you. Lety Chi documented in this encounter Plan of Treatment Not on file documented as of this encounter Visit Diagnoses Not on filedocumented in this encounter Care Teams Reed Maker Relationship Specialty Start Date End Date Maricruz Winter MD PCP - General 03/30/11 11/23/21 Isha Armstrong MD [address] [place] [address] PCP - General Internal Medicine 11/24/21 03/02/22 Cheryl Gallego MD [address] [place] [address] PCP - General Internal Medicine 03/03/22 06/14/23 [facility], [address] [address] PCP - General Internal Medicine 06/15/23 10/22/23 Amrik Mendoza MD [address] [place] [address] PCP - General Family Practice 10/23/23 Amrik Mendoza MD [address] [place] [address] Primary Care Physician Family Practice 10/23/23 Puma Gordon MD [address] [place] [address] Lung Cancer Qualitative Executive Researcher 10/23/23 Maritza Van NP [address] [place] [address] Referring Physician Nurse Practioner Adult [facility] 10/23/23 documented as of this encounter
--- OUTSIDE RECORDS SUMMARY | 2024-12-18 11:58 | XMS_ITS | Encounter Summary ---
Author Organization [facility] Address [address] [place] [address] Care Team Providers Care Administrative Appeals Tribunal Member Name Role Phone Maricruz Winter MD Primary Care Provider Un available Isha Armstrong MD Primary Care Provider [phone] Cheryl Gallego MD Primary Care Prov ider [facility], Pcp Primary Care Provider Amrik Chadwick MD Unavailable Puma Sy MD Unavailable Maritza Van NP Unavailable Amrik Chadwick MD Primary Care Provider Unav ailable Encounter Details Date Type Department Care Team Description 01/20/2020 Pt. Non Urgent Medic al Question Adult Medicine [address] [address] Maricruz Winter MD Social History Tobacco Use Types Packs/Day Years Used Date Smoking Tobacco: Former Cigarettes 0.3 Q uit: 11/28/2018 Smokeless Tobacco: Never Alcohol Use Standard Drinks/Week Comments No 0 (1 standard drink = 0.6 oz pur e alcohol) Quit in Oct '08 Sex Assigned at Date Recorded Not on file documented as of this encounter Progress Notes * Shannan GeorgeP.N. - 01/20/2020 10:19 AM EDTFrom: Lety Chi To: Maricruz Winter MD Sent: 01/20/2020 10:08 AM EDT Subject: Office Opening When will the office open? I would like to schedule an appointment once it is opened. documented in this encounter Plan of Treatment Not on file documented as of this encounter Visit Diagnoses Not on filedocumented in this encounter Care Teams Administrative Appeals Tribunal Member Relationship Specialty Start Date End Date Maricruz Winter MD PCP - General 03/30/11 11/23/21 Isha Armstrong MD [address] [place] [address] PCP - General Internal Medicine 11/24/21 03/02/22 Cheryl Gallego MD [address] [place] [address] PCP - General Internal Medicine 03/03/22 06/14/23 [place] [address] PCP - General Internal Medicine 06/15/23 10/22/23 Amrik Mendoza MD [address] [place] [address] PCP - General Family Practice 10/23/23 Amrik Mendoza MD [address] [place] [address] Primary Care Physician Family Practice 10/23/23 Puma Gordon MD [address] [place] [address] Lung Cancer Vinegar Maker 10/23/23 Maritza Van NP [address] [place], [place] [id number] Referring Physician Nurse Practioner Adult Health 10/23/23 documented as of this encounter
--- OUTSIDE RECORDS SUMMARY | 2024-12-18 11:58 | XMS_ITS | Encounter Summary ---
Author Organization [facility] Address [address] [place] [address] Care Team Providers Care Rubber Liner Name Role Phone Maricruz Winter MD Primary Care Provider Un available Isha Armstrong MD Primary Care Provider [phone] Cheryl Gallego MD Primary [facility] Prov ider [facility]cp Primary Care Provider Amrik Chadwick MD Unavailable Puma Sy MD Unavailable Maritza Van NP Unavailable Amrik Chadwick MD Primary Care Provider Unav ailable Encounter Details Date Type Department Care Team Description 06/12/2017 Orders Only Medicine/Pediatrics - [address] [id number] Lalit Finley PA-C LLQ pain (Primary Dx) Social History Tobacco Use Types Packs/Day Years [...] on file documented as of this encounter Results * SONO PELVIS COMPLETE (06/14/2017 1:57 PM EDT) 06/14/2017 4:54 PM EDT Narrative BEN BOYER OTHER EXTERNAL - 06/14/2017 4:56 PM EDT Pelvic ultrasound. History: Left lower quadrant pain. Status post hysterectomy and right salpingo-oophorectomy. According to the patient left ovary was not removed. COMPARISON 06/17/2013. The pelvis was scanned transabdominally for maximum [id number], and then transvaginally for optimum delineation of the uterus and ovaries. Neither uterus or ovaries were identified.. There is no free fluid in the cul-de-sac. There is no adnexal masses. CONCLUSIONS: Status post. Post hysterectomy and oophorectomy. No visible masses or focal fluid collections in the adnexal regions or cul-de-sac. Procedure Note Fabiola Lares MD - 06/14/2017 Pelvic ultrasound. History: Left lower quadrant pain. Status post hysterectomy and rightsalpingo-oophorectomy. According to the patient left ovary was not removed. COMPARISON 06/17/2013. The pelvis was scanned transabdominally for maximum [id number]-ly-cime, andthen transvaginally for optimum delineation of the uterus and ovaries. Neither uterus or ovarieswere identified.. There is no free fluid in the cul-de-sac. There is no adnexal masses. CONCLUSIONS: Status post. Post hysterectomy and oophorectomy. No visiblemasses or focal fluid collections in the adnexal regions or cul-de-sac. Lalit Finley PA-C ULTRASOUND BEN BOYER OTHER EXTERNAL documented in this encounter Visit Diagnoses Diagnosis LLQ pain- Primary Abdominal pain, left lower quadrant LLQ pain Abdominal pain, left lower quadrant documented in this encounter Care Teams Rubber Liner Relationship Specialty Start Date End Date Maricruz Winter MD PCP - General 03/30/11 11/23/21 Isha Armstrong MD [address] [place] [address] PCP - General Internal Medicine 11/24/21 03/02/22 Cheryl Gallego MD [address] [place] [address] PCP - General Internal Medicine 03/03/22 06/14/23 [facility] [place] [address] PCP - General Internal Medicine 06/15/23 10/22/23 Amrik Mendoza MD [address] [place] [address] PCP - General Family Practice 10/23/23 Amrik Mendoza MD [address] [place] [address] Primary Care Physician Family Practice 10/23/23 Puma Gordon MD [address] [place] [address] Lung Cancer Process Control Programmer 10/23/23 Maritza Van NP [address] [place] [address] Referring Physician Nurse Practioner Adult Health 10/23/23 documented as of this encounter
--- OUTSIDE RECORDS SUMMARY | 2024-12-18 11:58 | XMS_ITS | Encounter Summary ---
Author Organization [facility] Address [address] [place] [address] Care Team Providers Care Osteopathic Physician Name Role Phone Maricruz Winter MD Primary Care Provider Un available Isha Armstrong MD Primary Care Provider [phone] Cheryl Gallego MD Primary Care Prov ider [facility], Pcp Primary Care Provider Amrik Chadwick MD Unavailable Puma Sy MD Unavailable Maritza Van NP Unavailable Amirk Chadwick MD Primary Care Provider Unav ailable Encounter Details Date Type Department Care Team Description 09/06/2017 [facility] [address] [place] [address] Abstract, Provider Social History Tobacco Use Types [...] on filedocumented in this encounter Care Teams Osteopathic Physician Relationship Specialty Start Date End Date Maricruz Winter MD PCP - General 03/30/11 11/23/21 Isha Armstrong MD [address] [place] [address] PCP - General Internal Medicine 11/24/21 03/02/22 Cheryl Gallego MD [address] [place] [address] PCP - General Internal Medicine 03/03/22 06/14/23 [place] [address] PCP - General Internal Medicine 06/15/23 10/22/23 Amrik Mendoza MD [address] [place] [address] PCP - General Family Practice 10/23/23 Amrik Mendoza MD [address] [place] [address] Primary Care Physician Family Practice 10/23/23 Puma Gordon MD [address] [place] [address] Lung Cancer Doughnut Machine Operator Helper 10/23/23 Maritza Van NP [address] [place] [address] Referring Physician Nurse Practioner Adult Health 10/23/23 documented as of this encounter
--- OUTSIDE RECORDS SUMMARY | 2024-12-18 11:58 | XMS_ITS | Encounter Summary ---
[facility] Organization [facility] Address [address] [place] [address] Care Team Providers Care Drafter Seismograph Name Role Phone Maricruz Winter MD Primary Care Provider Un available Maricruz Winter MD Primary Care Provider Un available Maricruz Winter MD Primary Care Provider Un available Isha Armstrong MD Primary Care Provider [phone] Cheryl Gallego MD Primary Care Prov ider [facility], Pcp Primary Care Provider Amrik Chadwick MD Unavailable Puma Sy MD Unavailable Maritza Van NP Unavailable Amrik Chadwick MD Primary Care Provider Unav ailable Encounter Details Date Type Department Care Team Description 05/13/2010 Assessment Clinician Report Medical Records [address] [place] [address] Mekhi Ivey MD Social History Tobacco Use Types Packs/Day Years Used Date Smoking Tobacco: Every Day Cigarettes 0.5 Comments:4 cigs a day Alcohol Use Standard Drinks/Week Comments No 0 (1 standard drink = 0.6 oz pur e alcohol) Quit in May Sex Assigned at Date Recorded Not on file documented as of this encounter Plan of Treatment Not on file documented as of this encounter Visit Diagnoses Not on filedocumented in this encounter Care Teams Drafter Seismograph Relationship Specialty Start Date End Date Maricruz Winter MD PCP - General 03/30/11 11/23/21 Maricruz Winter MD PCP - General 02/21/11 03/29/11 Maricruz Winter MD PCP - General 09/01/00 01/29/11 Isha Armstrong MD [address] [place] [address] PCP - General Internal Medicine 11/24/21 03/02/22 Cheryl Gallego MD [address] [place] [address] PCP - General Internal Medicine 03/03/22 06/14/23 [place] [address] PCP - General Internal Medicine 06/15/23 10/22/23 Amrik Mendoza MD [address] [place] [address] PCP - General Family Practice 10/23/23 Amrik Mendoza MD [address] [place] [address] Primary Care Physician Family Practice 10/23/23 Puma Gordon MD [address] [place] [address] Lung Cancer Rescue Boat Operator 10/23/23 Maritza Van NP [address] [place] [address] Referring Physician Nurse Practioner Adult Health 10/23/23 documented as of this encounter
--- OUTSIDE RECORDS SUMMARY | 2024-12-18 11:58 | XMS_ITS | Clinical Summary ---
Author Organization [facility] Address [address] [place] [address] Care Team Providers Care Photographic Platemaker Name Role Phone Amrik Mendoza MD Primary Care Provider Surgical History Surgery Date Site/Laterality Comments OTHER SURGICAL HISTORY PROCEDURE: [place] OSTEOTOMY SPINE PST/PSTLAT APPR 1 VRT SGM CRV; COMMENT: surgery X 2 OTHER SURGICAL HISTORY 1993 PROCEDURE: HISTORICAL TOTAL HYSTERECTOMY W/O BSO; COMMENT: left ovary TUBAL LIGATION PROCEDURE: HISTORICAL TUBAL LIGATION OTHER SURGICAL HISTORY 1999 PROCEDURE: [place] ARTHROSCOPY TEMPOROMANDIBULAR JOINT SURGICAL; COMMENT: left SALPINGOOPHORECTOMY 02/08/11 PROCEDURE: [place] LAPAROSCOPY W/RMVL ADNEXAL STRUCTURES; COMMENT: Serous cystadenoma [...] drink = 0.6 oz pur e alcohol) Comments Unknown Sex and Gender Information Value Date Recorded Sex Assigned at Not on file Legal Sex Female 4:40 AM EST Gender Identity Not on file Sexual Orientation [...] Due Date Last Done Comments Pneumococcal Vaccine: 50+ Years (1 of 2 - PCV) 12/29/1982 Pneumococcal Vaccine: Pediatrics (0 to 5 Years) and At-Risk Patients (6 to 64 Years) (1 of 2 - PCV) 12/29/1982 Zoster Vaccines (1 of 2) 12/29/2013 Breast Cancer Screening 05/18/2019 05/18/2017 Cholesterol Screening (Lipid Panel) 07/30/2022 Colorectal Cancer Screening: Colonoscopy 07/30/2022 Depression Screening 07/30/2022 HIV Screening 07/30/2022 Hepatitis C Screening 07/30/2022 Social Influencers of Health Screening 07/30/2022 Hypertension/CHF/CAD Annual BMP Blood Test 08/06/2022 DTaP,Tdap,and Td Vaccines (3 - Td or Tdap) 10/16/2022 10/16/2012, 11/15/2001 RSV Immunization Adult Patients (1 - Risk 60-74 years 1-dose series) 2023 COVID-19 Vaccine (3 - season) 2024 12/14/2020, 11/21/2020 Influenza Vaccine (Season Ended) 2025 06/17/2018, 06/12/2017, 05/22/2016, Additional history exists HIB Vaccines [...] patient's age to complete this topic Meningococcal B Vaccine Aged Out No l onger eligible based on patient's age to complete [...] Low (<15%) Lalit GONZALES IMG XR PROCEDURES Final Result from Last 3 Months or Most Recently Relevant to Health Maintenance Care Teams Photographic Platemaker Relationship Specialty Start Date End Date Amrik Mendoza MD [address] [place] [address] Dr Tra [place] PCP - General 10/23/23
--- OUTSIDE RECORDS SUMMARY | 2024-12-18 11:58 | XMS_ITS | Encounter Summary ---
Author Organization [facility] Address [address] [place] [address] Care Team Providers Care Domestic Technician Name Role Phone Isha Armstrong MD Primary Care Provider [phone] Cheryl Gallego MD Primary Care Prov ider [facility], Pcp Primary Care Provider Amrik Chadwick MD Unavailable Puma Sy MD Unavailable Maritza Van NP Unavailable Amrik Chadwick MD Primary Care Provider Unav ailable Encounter Details Date Type Department Care Team Description 12/02/2021 [facility] Medical Records [address] [place] [address] Abstract, Provider Social History Tobacco Use Types [...] on filedocumented in this encounter Care Teams Domestic Technician Relationship Specialty Start Date End Date Isha Armstrong MD [address] [place] [address] PCP - General Internal Medicine 11/24/21 03/02/22 Cheryl Gallego MD [address] [place] [address] PCP - General Internal Medicine 03/03/22 06/14/23 [facility], Pcp [address] [place], [place] [id number] PCP - General Internal Medicine 06/15/23 10/22/23 Amrik Mendoza MD [address] [place] [address] PCP - General Family Practice 10/23/23 Amrik Mendoza MD [address] [place] [address] Primary Care Physician Family Practice 10/23/23 Puma Gordon MD [address] [place] [address] Lung Cancer Dog Walker 10/23/23 Maritza Van NP [address] [place] [address] Referring Physician Nurse Practioner Adult Health 10/23/23 documented as of this encounter
--- OUTSIDE RECORDS SUMMARY | 2024-12-18 11:58 | XMS_ITS | Encounter Summary ---
Author Organization [facility] Address [address] [place] [address] Care Team Providers Care Electric Motor Control Assembler Name Role Phone Maricruz Winter MD Primary Care Provider Un available Isha Armstrong MD Primary Care Provider [phone] Cheryl Gallego MD Primary [facility] Prov ider [facility]cp Primary Care Provider Amrik Chadwick MD Unavailable Puma Sy MD Unavailable Maritza Van NP Unavailable Amrik Chadwick MD Primary Care Provider Unav ailable Encounter Details Date Type Department Care Team Description 11/16/2017 Telephone Gastroenterology - [place] [address] [place] [address] Mina Driver PA-C Social History Tobacco Use Types Packs/Day [...] encounter Miscellaneous Notes * Telephone Encounter - Mina Driver PA-C - 11/16/2017 12:15 PM EDT Please put pt on list for a colonoscopy at hospital in 1 year. documented in this encounter Plan of Treatment Not on file documented as of this encounter Visit Diagnoses Not on filedocumented in this encounter Care Teams Electric Motor Control Assembler Relationship Specialty Start Date End Date Maricruz Winter MD PCP - General 03/30/11 11/23/21 Isha Armstrong MD [address] [place] [address] PCP - General Internal Medicine 11/24/21 03/02/22 Cheryl Gallego MD [address] [place] [address] PCP - General Internal Medicine 03/03/22 06/14/23 [place] [address] PCP - General Internal Medicine 06/15/23 10/22/23 Amrik Mendoza MD [address] [place] [address] PCP - General Family Practice 10/23/23 Amrik Mendoza MD [address] [place] [address] Primary Care Physician Family Practice 10/23/23 Puma Gordon MD [address] [place] [address] Lung Cancer Cooker Cleaner 10/23/23 Maritza Van NP [address] [place] [address] Referring Physician Nurse Practioner Adult Health 10/23/23 documented as of this encounter
--- OUTSIDE RECORDS SUMMARY | 2024-12-18 11:58 | XMS_ITS | Encounter Summary ---
[facility] Organization [facility] Address [address] [place] [address] Care Team Providers Care Hotel Breakfast Attendant Name Role Phone Maricruz Winter MD Primary Care Provider Un available Isha Armstrong MD Primary Care Provider [phone] Cheryl Gallego MD Primary Care Prov ider [facility], Pcp Primary Care Provider Amrik Chadwick MD Unavailable Puma Sy MD Unavailable Maritza Van NP Unavailable Amrik Chadwick MD Primary Care Provider Unav ailable Reason for Visit * Reason Onset Date Comments Civil Drafting Technician Feedback 11/29/2017 Encounter Details Date Type Department Care Team Description 11/29/2017 Telephone Medicine/Pediatrics - [address] [id number] Maricruz Winter MD Civil Drafting Technician Feedback Social History Tobacco Use Types Packs/Day Years Used Date Smoking Tobacco: Every Day Cigarettes 0.3 Smokeless Tobacco: Never Comments:5 cigs/day - decrea sing; also e-cig Alcohol Use Standard Drinks/Week Comments No 0 (1 standard drink = 0.6 oz pur e alcohol) Quit in May Sex Assigned at Date Recorded Not on file documented as of this encounter Miscellaneous Notes * Telephone Encounter - Erica Damon - 12/06/2017 2:07 PM EDT Noted. * Telephone Encounter - Mellissa Golden - 12/06/2017 1:53 PM EDT Pt states she does not need this referall. * Telephone Encounter - Erica Damon - 12/06/2017 12:38 PM EDT Called and spoke with Stacie at Dr. Mitchell Rodriguez office. She will fax me last office notes to submittOut of Network to [facility]. * Telephone Encounter - Erica Damon - 11/29/2017 11:16 AM EDT Need last office notes to submitt out of network. Left message for a call back. * Telephone Encounter - Darling Mar - 11/29/2017 10:20 AM EDT What insurance does the patient have today? [facility] Effective 05/27/09: [facility] will not retro referral requests over 90 days. If request is for this please instruct patient to call the 800# on their insurance card to appeal. Do not submit a request. Referrals cannot be processed if the insurance is not accurate. If the insurance listed above in red is NO BILLING INFORMATION FOUND FOR THIS ENCOUTNER The patients correct insurance must be obtained and registered in [facility] or their referral can not be processed. Is this a retro request? NO. If yes for what date of service do you need the retro referral? N/A Who is calling to request this referral? Patient If the caller is not the patient, what is their name? N/A Ask the patient WHO referred them to this specialty: Not an initial visit; it is for follow up/continuation of care. Patients PCP is [facility] and LAST NAME of SPECIALIST PATIENT is seeing: Mellisa Rodriguez What specialty is this? Oral surgeon-[facility] [employer]. [facility] wire spinner Department DIAGNOSIS Patient is being seen for (Not a body part or a procedure): f/u to surgery-orthoscopy temporal mandibular joint Have you seen this SPECIALIST for this PROBLEM/DX before?YES If YES, when:08/2017 Have you checked REVIEW or the APPT DESK to see if this referral has already been done or has visits left? YES Is this visit:Follow Up Address of Specialist:[address] [place] [address], 5[address] floor, [place], [place] Phone # of Specialist:[phone] Fax #: (if applicable):[phone] Does patient have an appointment scheduled?: NO Date of appointment- (including a retro-request): TBD Is this appointment related to: Not MVA, WC or Surgery related documented in this encounter Plan of Treatment Not on file documented as of this encounter Visit Diagnoses Not on filedocumented in this encounter Care Teams Hotel Breakfast Attendant Relationship Specialty Start Date End Date Maricruz Winter MD PCP - General 03/30/11 11/23/21 Ihsa Armstrong MD [address] [place] [address] PCP - General Internal Medicine 11/24/21 03/02/22 Cheryl Gallego MD [address] [place], [place] [id number] PCP - General Internal Medicine 03/03/22 06/14/23 [facility], [address] [address] PCP - General Internal Medicine 06/15/23 10/22/23 Amrik Mendoza MD [address] [place], [place] [id number] PCP - General Family Practice 10/23/23 Amrik Mendoza MD [address] [place] [address] Primary Care Physician Family Practice 10/23/23 Puma Gordon MD [address] [place] [address] Lung Cancer Executive Assistant 10/23/23 Maritza Van NP [address] [place] [address] Referring Physician Nurse Practioner Adult [facility] 10/23/23 documented as of this encounter
--- OUTSIDE RECORDS SUMMARY | 2024-12-18 11:58 | XMS_ITS | Encounter Summary ---
[facility] Organization [facility] Address [address] [place] [address] Care Team Providers Care Site Manager Name Role Phone Maricruz Winter MD Primary Care Provider Un available Isha Armstrong MD Primary Care Provider [phone] Cheryl Gallego MD Primary Care Prov ider [facility], Pcp Primary Care Provider Amrik Chadwick MD Unavailable Puma Sy MD Unavailable Maritza Van NP Unavailable Amrik Chadwick MD Primary Care Provider Unav ailable Reason for Visit * Reason Onset Date Comments Dock Clerk Feedback 08/08/2017 Leonardo Rodriguez [phone] [id number] Encounter Details Date Type Department Care Team Description 08/08/2017 Telephone Medicine/Pediatrics - [address] [id number] Maricruz Winter MD Dock Clerk Feedback (Leonardo Rodriguez [id number]) Social History Tobacco Use Types Packs/Day Years Used Date Smoking Tobacco: Every Day Cigarettes 0.3 Smokeless Tobacco: Never Comments:5 cigs/day - decrea sing; also e-cig Alcohol Use Standard Drinks/Week Comments No 0 (1 standard drink = 0.6 oz pur e alcohol) Quit in May Sex Assigned at Date Recorded Not on file documented as of this encounter Miscellaneous Notes * Telephone Encounter - Vin Arzate - 08/13/2017 3:16 PM EST [facility] Auth # [id number] 2 visits under CPT 77978 08/13/2017-11/21/2017 2 visits under CPT 88514 08/13/2017-11/21/2017 * Telephone Encounter - Vin Arzate - 08/13/2017 10:32 AM EST Mercedes from [facility] called back and stated that she did notice after we hung up that the CPT codes do not exist in the system, she stated that she can either keep it under those coded or if there are other ones then we can call her back with the new ones. I called the Insurance office for Dr. Michael hernandez to [facility] and she first stated that the codes are correct but she also said that she has three other we can use. She will be faxing them over to us with the descriptions as well. Once we received the new. Received new codes during this message, faxed over to [facility] so they can finish the process. * Telephone Encounter - Vin Arzate - 08/13/2017 9:52 AM EST Patient called and states that [facility] reached out to us and stated that the codes were wrong, I calledReji at [facility] pre auth dept. And he states that the codes are correct, I called Mercedes at [facility] and she also states there is noting wrong so far, but it is still pending and it usually takes about 48 hours from request being submitted. It was submitted on 08/10/2017 after we received the notes from [facility] Which patient was able to get on . Patient is aware that this request came in on 08/08/2017 for a 08/14/2017 appoinmtent. * Telephone Encounter - Vin Arzate - 08/10/2017 9:49 AM EST Clinicals received, faxed Out of Network to [facility], waiting on response. * Telephone Encounter - Vin Arzate - 08/10/2017 9:25 AM EST Spoke to patient to let her know that I have contacted Reji at 's office 2 times to obtain clinicals to be able to submit to [facility] for her upcoming appt on 08/14/2017. She does state that she has a letter from [facility] for this being already pre approved which she will bring with her to the appointment. She will be calling Reji to get clinicals faxed over so we can at least be able to fax it over to [facility]. * Telephone Encounter - Vin Arzate - 08/09/2017 4:08 PM EST Spoke to Reji at Dr. Rodriguez's office again and he states he was trying to find clinicals so he can fax them to me in order to send to [facility]. * Telephone Encounter - Vin Arzate - 08/08/2017 10:19 AM EST Spoke to reji from Dr. Rodriguez's offcie and he will be faxing over notes supporting the OUT OF Netrk for [facility], once recived we will submit for D.O.S 08/14/2017 * Telephone Encounter - Anali Vila - 08/08/2017 10:05 AM EST What insurance does the patient have today? [facility] Effective 05/27/09: [facility] will not retro referral requests over 90 [...] insurance must be obtained and registered in PSYCHIATRIC or their referral can not be processed. Is this a retro request? NO. If yes for what date of service do you need the retro referral? N/A Who is calling to request this referral? Reji from [facility] If the caller is not the patient, what is their name? N/A Ask the patient WHO referred them to this specialty: Patient saw Dr Yates at [facility] for the problem and was told if symptoms did not resolve or worsen they would refer them to this specialty FIRST and LAST NAME of SPECIALIST PATIENT is seeing: Leonardo Rodriguez [id number] What specialty is this? Dentistry DIAGNOSIS Patient is being seen for (Not a body part or a procedure): TMJ Have you seen this SPECIALIST for this PROBLEM/DX before?YES If YES, when:2017 Have you checked REVIEW or the APPT DESK to see if this referral has already been done or has visits left? YES Is this visit:Follow Up Address of Specialist:[address] [place] [address] Phone # of Specialist:[phone] Fax #: (if applicable):[phone] Does patient have an appointment scheduled?: YES Date of appointment- (including a retro-request): 08/14/17 Is this appointment related to: Surgery documented in this encounter Plan of Treatment Not on file documented as of this encounter Visit Diagnoses Not on filedocumented in this encounter Care Teams Site Manager Relationship Specialty Start Date End Date Maricruz Winter MD PCP - General 03/30/11 11/23/21 Isha Armstrong MD [address] [place] [address] PCP - General Internal Medicine 11/24/21 03/02/22 Cheryl Gallego MD [address] [place] [address] PCP - General Internal Medicine 03/03/22 06/14/23 [facility], Pcp [address] [place] [address] PCP - General Internal Medicine 06/15/23 10/22/23 Amrik Mendoza MD [address] [place] [address] PCP - General Family Practice 10/23/23 Amrik Mendoza MD [address] [place] [address] Primary Care Physician Family Practice 10/23/23 Puma Gordon MD [address] [place], [place] [phone] Lung Cancer Boat Hop 10/23/23 Maritza Van NP [address] [place] [address] Referring Physician Nurse Practioner Adult Health 10/23/23 documented as of this encounter
--- OUTSIDE RECORDS SUMMARY | 2024-12-18 11:58 | XMS_ITS | Encounter Summary ---
Author Organization [facility] Address [address] [place] [address] Care Team Providers Care Political Science Professor Name Role Phone Cheryl Gallego MD Primary Care Prov ider [facility], Pcp Primary Care Provider Amrik Chadwick MD Unavailable Puma Sy MD Unavailable Maritza Van NP Unavailable Amrik Chadwick MD Primary Care Provider Unav ailable Reason for Referral * EXTERNAL (Routine) - Authorized/Booked Specialty Diagnoses / Procedures Referred By Verna vela Referred To Contact Neurology Procedures REFERRAL TO NEUROLOGY Cheryl Gallego MD [address] [place] [address] [facility] [address], [address] [place] [address] Referral ID Status Reason Start Date Expiration Date V isits Requested Visits Authorized [id number] Authorized/B ooked 06/26/2022 10/21/2022 1 1 Reason for Visit * Reason Onset Date Comments REFERRAL 06/06/2022 Handkerchief Maker Feedback 06/06/2022 Neurology Encounter Details Date Type Department Care Team Description 06/06/2022 Telephone Adult [facility] [address] [place] [address] Cheryl Gallego MD [address] [place] [address] REFERRAL; Handkerchief Maker Feedback (Neurology) Social History Tobacco Use Types Packs/Day Years Used Date Smoking Tobacco: Former Cigarettes 0.3 Q uit: 11/28/2018 Smokeless Tobacco: Never Alcohol Use Standard Drinks/Week Comments No 0 (1 standard drink = 0.6 oz pur e alcohol) Quit in May Sex Assigned at Date Recorded Not on file documented as of this encounter Miscellaneous Notes * Telephone Encounter - Cheryl aJson MD - 06/26/2022 10:19 AM EDT Referral was signed, thank you * Telephone Encounter - Marilynn Drake - 06/26/2022 9:06 AM EDT Please review this patients new referral request. The referral has been pended. Please complete thefollowing: If approved> sign order If denied>please give instructions and route to your practice nursing pool. Practice nurse should inform referrals and the patient if denied. * Telephone Encounter - Pablo Aguilar - 06/06/2022 2:25 PM EDT The patient says she called [facility] to ask when their next appointment is and she says it is too far out. The patient wants to know if she can be referred to a different neurology group that is not [facility] or [place]. What insurance does the patient have today? Payor: [employer] / Plan: PPO $20 ANDOVER [id number] / Product Type: PPO [id number] (manually verified online, insurance still active and correct) Effective 05/27/09: [employer] will not retro referral requests over 90 [...] insurance must be obtained and registered in [facility] or their referral can not be processed. Is this a retro request? NO. If yes for what date of service do you need the retro referral? N/A Who is calling to request this referral? The patient If the caller is not the patient, what is their name? N/A Ask the patient WHO referred them to this specialty: Patient saw Brenda Gordillo at [facility] for the problem and was told if symptoms did not resolve or worsen they would refer them to this specialty FIRST and LAST NAME of SPECIALIST PATIENT is seeing: (The patient does not currently have an appointment scheduled.) What specialty is this? Neurology DIAGNOSIS Patient is being seen for (Not a body part or a procedure): Bodywide tremor and weakness Have you seen this SPECIALIST for this PROBLEM/DX before?NO If YES, when: Have you checked REVIEW or the APPT DESK to see if this referral has already been done or has visits left? YES Is this visit:Initial Visit Address of Specialist: (The patient does not currently have an appointment scheduled.) Phone # of Specialist: (The patient does not currently have an appointment scheduled.) Fax #: (if applicable): Does patient have an appointment scheduled?: NO Date of appointment- (including a retro-request): Is this appointment related to: Not MVA, WC or Surgery related documented in this encounter Plan of Treatment Not on file documented as of this encounter Visit Diagnoses Not on filedocumented in this encounter Care Teams Political Science Professor Relationship Specialty Start Date End Date Cheryl Gallego MD [address] [place] [address] PCP - General Internal Medicine 03/03/22 06/14/23 [facility], Pcp [address] [place] [address] PCP - General Internal Medicine 06/15/23 10/22/23 Amrik Mendoza MD [address] [place] [address] PCP - General Family Practice 10/23/23 Amrik Mendoza MD [address] [place] [address] Primary Care Physician Family Practice 10/23/23 Puma Gordon MD [address] [place] [address] Lung Cancer Flight Attendant 10/23/23 Maritza Van NP [address] [place] [address] Referring Physician Nurse Practioner Adult Health 10/23/23 documented as of this encounter
--- OUTSIDE RECORDS SUMMARY | 2024-12-18 11:58 | XMS_ITS | Encounter Summary ---
Author [facility] Address [address] [place] [address] Care Team Providers Care Windows Systems Architect Name Role Phone Maricruz Winter MD Primary Care Provider Un available Isha Armstrong MD Primary Care Provider [phone] Cheryl Gallego MD Primary Care Prov ider [facility], Pcp Primary Care Provider Amrik Chadwick MD Unavailable Puma Sy MD Unavailable Maritza Van NP Unavailable Amrik Chadwick MD Primary Care Provider Unav ailable Reason for Visit * Reason Onset Date Comments Letter 10/12/2011 Encounter Details Date Type Department Care Team Description 10/12/2011 Telephone Physiatry - [place] [address] [place] [address] Cooper Diaz, DO Letter Social History Tobacco Use Types Packs/Day Years Used Date Smoking Tobacco: Every Day Cigarettes Smokeless Tobacco: Never Comments:2 cigs a day Alcohol Use Standard Drinks/Week Comments No 0 (1 standard drink = 0.6 oz pur e alcohol) Quit in May Sex Assigned at Date Recorded Not on file documented as of this encounter Miscellaneous Notes * Telephone Encounter - Elif Kevin L.P.N. - 10/16/2011 8:42 AM EST Letter was mailed to the jury commissioner as requested. * Telephone Encounter - Cooper Diaz - 10/16/2011 8:39 AM EST Done, please mail. * Telephone Encounter - Elif Kevin L.P.N. - 10/12/2011 10:01 AM EST Request for letter for jury duty will be sent to dr diaz. * Telephone Encounter - Shala Gilmore - 10/12/2011 9:35 AM EST Patient has been summoned for jury duty and is disabled and cannot serve. She would like Dr Diaz to write a letter so she will not have to appear. Please Mail letter to: Office of Jury Commissioner, [address] [place] [address], [facility] [address], [place] [address] documented in this encounter Plan of Treatment Not on file documented as of this encounter Visit Diagnoses Not on filedocumented in this encounter Care Teams Windows Systems Architect Relationship Specialty Start Date End Date Maricruz Winter MD PCP - General 03/30/11 11/23/21 Isha Armstrong MD [address] [place] [address] PCP - General Internal Medicine 11/24/21 03/02/22 Cheryl Gallego MD [address] [place] [address] PCP - General Internal Medicine 03/03/22 06/14/23 [facility] Pcp [address] [place] [address] PCP - General Internal Medicine 06/15/23 10/22/23 Amrik Mendoza MD [address] [place] [address] PCP - General Family Practice 10/23/23 Amirk Mendoza MD [address] [place] [address] Primary Care Physician Family Practice 10/23/23 Puma Gordon MD [address] [place] [address] Lung Cancer Message Clerk 10/23/23 Maritza Van NP [address] [place] [address] Referring Physician Nurse Practioner Adult Health 10/23/23 documented as of this encounter
--- OUTSIDE RECORDS SUMMARY | 2024-12-18 11:58 | XMS_ITS | Encounter Summary ---
Author Organization [facility] Address [address] [place] [address] Care Team Providers Care Market Development Analyst Name Role Phone Maricruz Winter MD Primary Care Provider Un available Isha Armstrong MD Primary Care Provider [phone] Cheryl Gallego MD Primary Care Prov ider [facility], Pcp Primary Care Provider Amrik Chadwick MD Unavailable Puma Sy MD Unavailable Maritza Van NP Unavailable Amrik Chadwick MD Primary Care Provider Unav ailable Encounter Details Date Type Department Care Team Description 06/20/2011 Forestry Professor Report Medical Records [address] [place] [address] Sophie Nunez MD [address] [place] [address] Dr DOUG [place] [id number] Social History Tobacco Use Types Packs/Day Years [...] on filedocumented in this encounter Care Teams Market Development Analyst Relationship Specialty Start Date End Date Maricruz Winter MD PCP - General 03/30/11 11/23/21 Isha Armstrong MD [address] [place] [address] PCP - General Internal Medicine 11/24/21 03/02/22 Cheryl Gallego MD [address] [place] [address] PCP - General Internal Medicine 03/03/22 06/14/23 [facility], [address] [address] PCP - General Internal Medicine 06/15/23 10/22/23 Amrik Mendoza MD [address] [place] [address] PCP - General Family Practice 10/23/23 Amrik Mendoza MD [address] [place] [address] Primary Care Physician Family Practice 10/23/23 Puma Gordon MD [address] [place] [address] Lung Cancer Rn Traveling 10/23/23 Maritza Van NP [address] [place] [address] Referring Physician Nurse Practioner Adult Health 10/23/23 documented as of this encounter
--- OUTSIDE RECORDS SUMMARY | 2024-12-18 11:58 | XMS_ITS | Encounter Summary ---
[facility] Organization [facility] Address [address] [place] [address] Care Team Providers Care Mastic Worker Name Role Phone Maricruz Winter MD Primary Care Provider Un available Isha Armstrong MD Primary Care Provider [phone] Cheryl Gallego MD Primary Care Prov ider [facility], Pcp Primary Care Provider Amrik Chadwick MD Unavailable Puma Sy MD Unavailable Maritza Van NP Unavailable Amrik Chadwick MD Primary Care Provider Unav ailable Encounter Details Date Type Department Care Team Description 06/08/2020 Pt. Non Urgent Medic al Question Physiatry - [address] [address] Cooper Smith DO Social History Tobacco Use Types Packs/Day Years Used Date Smoking Tobacco: Former Cigarettes 0.3 Q uit: 11/28/2018 Smokeless Tobacco: Never Alcohol Use Standard Drinks/Week Comments No 0 (1 standard drink = 0.6 oz pur e alcohol) Quit in May Sex Assigned at Date Recorded Not on file documented as of this encounter Progress Notes * Ayla Quinteros M.A. - 06/08/2020 2:27 PM EDTFrom: Lety Chi To: Cooper Smith DO Sent: 06/08/2020 11:56 AM EDT Subject: Shot In January, I received a shot in my upper back. It has worn off. I would like to schedule another shot. Thank you. Lety Chi : 61 Tel: [phone] documented in this encounter Plan of Treatment Not on file documented as of this encounter Visit Diagnoses Not on filedocumented in this encounter Care Teams Mastic Worker Relationship Specialty Start Date End Date Maricruz Winter MD PCP - General 03/30/11 11/23/21 Isha Armstrong MD [address] [place] [address] PCP - General Internal Medicine 11/24/21 03/02/22 Cheryl Gallego MD [address] [place] [address] PCP - General Internal Medicine 03/03/22 06/14/23 [place] [phone] PCP - General Internal Medicine 06/15/23 10/22/23 Amrik Mendoza MD [address] [place] [address] PCP - General Family Practice 10/23/23 Amrik Mendoza MD [address] [place] [address] Primary Care Physician Family Practice 10/23/23 Puma Gordon MD [address] [place] [address] Lung Cancer Bulk Station Operator 10/23/23 Maritza Van NP [address] [place] [address] Referring Physician Nurse Practioner Adult Health 10/23/23 documented as of this encounter
--- OUTSIDE RECORDS SUMMARY | 2024-12-18 11:58 | XMS_ITS | Encounter Summary ---
Author Organization [facility] Address [address] [place] [address] Care Team Providers Care Appraiser Name Role Phone Maricruz Winter MD Primary Care Provider Un available Isha Armstrong MD Primary Care Provider [phone] Cheryl Gallego MD Primary Care Prov ider [facility], Pcp Primary Care Provider Amrik Chadwick MD Unavailable Puma Sy MD Unavailable Maritza Van NP Unavailable Amrik Chadwick MD Primary Care Provider Unav ailable Encounter Details Date Type Department Care Team Description 09/14/2011 Hospital Medical Records [address] [place] [address] Areli Joy MD Social History Tobacco Use Types Packs/Day Years Used Date Smoking Tobacco: Every Day Cigarettes 0.3 26 Smokeless Tobacco: Never Alcohol Use Standard Drinks/Week Comments Yes 0 (1 standard drink = 0.6 oz pur e alcohol) Sex Assigned at Date Recorded Not on file documented as of this encounter Plan of Treatment Not on file documented as of this encounter Visit Diagnoses Not on filedocumented in this encounter Care Teams Appraiser Relationship Specialty Start Date End Date Maricruz Winter MD PCP - General 03/30/11 11/23/21 Isha Armstrong MD [address] [place] [address] PCP - General Internal Medicine 11/24/21 03/02/22 Cheryl Gallego MD [address] [place] [address] PCP - General Internal Medicine 03/03/22 06/14/23 [facility], Pcp [address] [place] [address] PCP - General Internal Medicine 06/15/23 10/22/23 Amrik Mendoza MD [address] [place] [address] PCP - General Family Practice 10/23/23 Amrik Mendoza MD [address] [place] [address] Primary Care Physician Family Practice 10/23/23 Puma Gordon MD [address] [place] [address] Lung Cancer Automatic Buffer 10/23/23 Maritza Van NP [address] [place] [address] Referring Physician Nurse Practioner Adult Health 10/23/23 documented as of this encounter
--- OUTSIDE RECORDS SUMMARY | 2024-12-18 11:58 | XMS_ITS | Encounter Summary ---
Author Organization [facility] Address [address] [place] [address] Care Team Providers Care Invertebrate Paleontologist Name Role Phone Isha Armstrong MD Primary Care Provider [phone] Cheryl Gallego MD Primary Care Prov ider [facility], Pcp Primary Care Provider Amrik Chadwick MD Unavailable Puma Sy MD Unavailable Maritza Van NP Unavailable Amrik Chadwick MD Primary Care Provider Unav ailable Reason for Visit * Reason Onset Date Comments APPOINTMENT 01/11/2022 Encounter Details Date Type Department Care Team Description 01/11/2022 Pt. Non Urgent Medical Question Adult Medicine [address] [phone] Isha Armstrong MD [address] [place] [address] [phone] Social History Tobacco Use Types Packs/Day Years Used Date Smoking Tobacco: Former Cigarettes 0.3 Q uit: 11/28/2018 Smokeless Tobacco: Never Alcohol Use Standard Drinks/Week Comments No 0 (1 standard drink = 0.6 oz pur e alcohol) Quit in May Sex Assigned at Date Recorded Not on file documented as of this encounter Miscellaneous Notes * Telephone Encounter - Rosa Elena Arenas M.A. - 01/11/2022 9:07 AM EDTFrom: Lety Chi To: Bertrand Armstrong Sent: 01/11/2022 9:02 AM EDT Subject: Today???s appointment I need to cancel today???s appointment at 10:30. My has just been brought to the emergency room Thank you documented in this encounter Plan of Treatment Not on file documented as of this encounter Visit Diagnoses Not on filedocumented in this encounter Care Teams Invertebrate Paleontologist Relationship Specialty Start Date End Date Isha Armstrong MD [address] [place] [address] PCP - General Internal Medicine 11/24/21 03/02/22 Cheryl Gallego MD [address] [place] [address] PCP - General Internal Medicine 03/03/22 06/14/23 [facility], Pcp [address] [place] [address] PCP - General Internal Medicine 06/15/23 10/22/23 Amrik Mendoza MD [address] [place] [address] PCP - General Family Practice 10/23/23 Amrik Mendoza MD [address] [place] [address] Primary Care Physician Family Practice 10/23/23 Puma Gordon MD [address] [place] [address] Lung Cancer Hot Blaster 10/23/23 Maritza Van NP [address] [place], [place] [phone] Referring Physician Nurse Practioner Adult Health 10/23/23 documented as of this encounter
--- OUTSIDE RECORDS SUMMARY | 2024-12-18 11:58 | XMS_ITS | Encounter Summary ---
Author Organization [facility] Address [address] [place] [address] Care Team Providers Care Land Leveler Name Role Phone Maricruz Winter MD Primary Care Provider Un available Maricruz Winter MD Primary Care Provider Un available Isha Armstrong MD Primary Care Provider [phone] Cheryl Gallego MD Primary Care Prov ider Community, Pcp Primary Care Provider Amrik Chadwick MD Unavailable Puma Sy MD Unavailable Maritza Van NP Unavailable Amrik Chadwick MD Primary Care Provider Unav ailable Encounter Details Date Type Department Care Team Description 02/08/2011 Hospital Medical Records [address] [place] [address] Roderick Velez MD Social History Tobacco Use Types Packs/Day [...] on filedocumented in this encounter Care Teams Land Leveler Relationship Specialty Start Date End Date Maricruz Winter MD PCP - General 03/30/11 11/23/21 Maricruz Winter MD PCP - General 02/21/11 03/29/11 Isha Armstrong MD [address] [place] [address] PCP - General Internal Medicine 11/24/21 03/02/22 Cheryl Gallego MD [address] [place] [address] PCP - General Internal Medicine 03/03/22 06/14/23 [place] [id number] PCP - General Internal Medicine 06/15/23 10/22/23 Amrik Mendoza MD [address] [place] [address] PCP - General Family Practice 10/23/23 Amrik Mendoza MD [address] [place] [address] Primary Care Physician Family Practice 10/23/23 Puma Gordon MD [address] [place] [address] Lung Cancer Immigration Manager 10/23/23 Maritza Van NP [address] [place] [address] Referring Physician Nurse Practioner Adult Health 10/23/23 documented as of this encounter
--- OUTSIDE RECORDS SUMMARY | 2024-12-18 11:58 | XMS_ITS | Encounter Summary ---
[facility] Organization [facility] Address [address] [place] [address] Care Team Providers Care Lap Maker Name Role Phone Maricruz Winter MD Primary Care Provider Un available Isha Armstrong MD Primary Care Provider [phone] Cheryl Gallego MD Primary Care Prov ider Community, Pcp Primary Care Provider Amrik Chadwick MD Unavailable Puma Sy MD Unavailable Maritza Van NP Unavailable Amrik Chadwick MD Primary Care Provider Unav ailable Encounter Details Date Type Department Care Team Description 03/26/2018 [facility] Medical Records [address] [place] [address] Abstract, Provider Social History Tobacco Use Types [...] on filedocumented in this encounter Care Teams Lap Maker Relationship Specialty Start Date End Date Maricruz Winter MD PCP - General 03/30/11 11/23/21 Isha Armstrong MD [address] [place] [address] PCP - General Internal Medicine 11/24/21 03/02/22 Cheryl Gallego MD [address] [place] [address] PCP - General Internal Medicine 03/03/22 06/14/23 [place] [address] PCP - General Internal Medicine 06/15/23 10/22/23 Amrik Mendoza MD [address] [place] [address] PCP - General Family Practice 10/23/23 Amrik Mendoza MD [address] [place] [address] Primary Care Physician Family Practice 10/23/23 Puma Gordon MD [address] [place] [address] Lung Cancer Wood Last Maker 10/23/23 Maritza Van NP [address] [place] [address] Referring Physician Nurse Practioner Adult Health 10/23/23 documented as of this encounter
--- OUTSIDE RECORDS SUMMARY | 2024-12-18 11:58 | XMS_ITS | Encounter Summary ---
Author Organization [facility] Address [address] [place] [address] Care Team Providers Care Rn Forensic Name Role Phone Maricruz Winter MD Primary Care Provider Un available Isha Armstrong MD Primary Care Provider [phone] Cheryl Gallego MD Primary Care Prov ider [facility], Pcp Primary Care Provider Amrik Chadwick MD Unavailable UnavailPuma Nolasco MD Unavailable Maritza Van NP Unavailable Amrik Chadwick MD Primary Care Provider Unav ailable Reason for Visit * Reason Onset Date Comments [facility] Special Procedure Gi 10/03/2017 Encounter Details Date Type Department Care Team Description 10/03/2017 Telephone Gastroenterology - [address] [address] Mina Driver PA-C [facility] Social History Tobacco Use Types Packs/Day Years Used Date Smoking Tobacco: Every Day Cigarettes 0.3 Smokeless Tobacco: Never Comments:5 cigs/day - decrea sing; also e-cig Alcohol Use Standard Drinks/Week Comments No 0 (1 standard drink = 0.6 oz pur e alcohol) Quit in May Sex Assigned at Date Recorded Not on file documented as of this encounter Miscellaneous Notes * Telephone Encounter - Cathleen Josh - 11/14/2017 3:56 PM EDT Procedure/pathology report placed in Mina's incoming. * Telephone Encounter - Cathleen Josh - 10/04/2017 8:47 AM EST Case # [id number] * Telephone Encounter - Kira Diamond - 10/03/2017 11:50 AM EST Patient referred by Mina Driver for procedure colonoscopy at [facility] with Dr Davalos on 10/30/17 Arrival time 7:00am procedure time 8:00am Booking sheet faxed to Vania Case # pending documented in this encounter Plan of Treatment Not on file documented as of this encounter Visit Diagnoses Not on filedocumented in this encounter Care Teams Rn Forensic Relationship Specialty Start Date End Date Maricruz Winter MD PCP - General 03/30/11 11/23/21 Isha Armstrong MD [address] [place] [address] PCP - General Internal Medicine 11/24/21 03/02/22 Cheryl Gallego MD [address] [place] [address] PCP - General Internal Medicine 03/03/22 06/14/23 [facility], Pcp [address] [place], [place] [id number] PCP - General Internal Medicine 06/15/23 10/22/23 Amrik Mendoza MD [address] [place] [address] PCP - General Family Practice 10/23/23 Amrik Mendoza MD [address] [place] [address] Primary Care Physician Family Practice 10/23/23 Puma Gordon MD [address] [place] [address] Lung Cancer Agricultural Mechanic 10/23/23 Maritza Van NP [address] [place] [address] Referring Physician Nurse Practioner Adult Health 10/23/23 documented as of this encounter
--- OUTSIDE RECORDS SUMMARY | 2024-12-18 11:58 | XMS_ITS | Encounter Summary ---
Author Organization [facility] Address [address] [place] [address] Care Team Providers Care Cops Name Role Phone Maricruz Winter MD Primary Care Provider Un available Isha Armstrong MD Primary Care Provider [phone] Cheryl Gallego MD Primary Care Prov ider Community, Pcp Primary Care Provider Amrik Chadwick MD Unavailable Puma Sy MD Unavailable Maritza Van NP Unavailable Amrik Chadwick MD Primary Care Provider Unav ailable Encounter Details Date Type Department Care Team Description 07/24/2017 Transfer Records Medical Records [address] [place] [address] Abstract, Provider Social History Tobacco Use Types [...] on filedocumented in this encounter Care Teams Cops Relationship Specialty Start Date End Date Maricruz Winter MD PCP - General 03/30/11 11/23/21 Isha Armstrong MD [address] [place] [address] PCP - General Internal Medicine 11/24/21 03/02/22 Cheryl Gallego MD [address] [place] [address] PCP - General Internal Medicine 03/03/22 06/14/23 [place] [address] PCP - General Internal Medicine 06/15/23 10/22/23 Amrik Mendoza MD [address] [place] [address] PCP - General Family Practice 10/23/23 Amrik Mendoza MD [address] [place] [address] Primary Care Physician Family Practice 10/23/23 Puma Gordon MD [address] [place] [address] Lung Cancer Bioprocess Development Engineer 10/23/23 Maritza Van NP [address] [place] [address] Referring Physician Nurse Practioner Adult Health 10/23/23 documented as of this encounter
--- OUTSIDE RECORDS SUMMARY | 2024-12-18 11:58 | XMS_ITS | Encounter Summary ---
Author Organization [facility] Address [address] [place] [address] Care Team Providers Care Nuclear Weapons Specialist Name Role Phone Maricruz Winter MD Primary Care Provider Un available Isha Armstrong MD Primary Care Provider [phone] Cheryl Gallego MD Primary Care Prov ider Community, Pcp Primary Care Provider Amrik Chadwick MD Unavailable Puma Sy MD Unavailable Maritza Van NP Unavailable Amrik Chadwick MD Primary Care Provider Unav ailable Encounter Details Date Type Department Care Team Description 08/18/2014 GUEST SERVICES COORDINATOR/[facility] Report Medical Records [address] [place] [address] Abstract, Provider Social History Tobacco Use Types [...] on filedocumented in this encounter Care Teams Nuclear Weapons Specialist Relationship Specialty Start Date End Date Maricruz Winter MD PCP - General 03/30/11 11/23/21 Isha Armstrong MD [address] [place] [address] PCP - General Internal Medicine 11/24/21 03/02/22 Cheryl Gallego MD [address] [place] [address] PCP - General Internal Medicine 03/03/22 06/14/23 [facility], [place] [address] PCP - General Internal Medicine 06/15/23 10/22/23 Amrik Mendoza MD [address] [place] [address] PCP - General Family Practice 10/23/23 Amrik Mendoza MD [address] [place] [address] Primary Care Physician Family Practice 10/23/23 Puma Godron MD [address] [place] [address] Lung Cancer House Decorator 10/23/23 Maritza Van NP [address] [place] [address] Referring Physician Nurse Practioner Adult Health 10/23/23 documented as of this encounter
--- OUTSIDE RECORDS SUMMARY | 2024-12-18 11:58 | XMS_ITS | Encounter Summary ---
Author Organization [facility] Address [address] [place] [address] Care Team Providers Care Chipping Machine Operator Name Role Phone Maricruz Winter MD Primary Care Provider Un available Isha Armstrong MD Primary Care Provider Cheryl Gallego MD Primary Care Prov ider [facility], Pcp Primary Care Provider Amrik Chadwick MD Unavailable Puma Sy MD Unavailable Maritza Van NP Unavailable Amrik Chadwick MD Primary Care Provider Unav ailable Reason for Visit * Reason Onset Date Comments Prior Authorization 01/24/2018 lubiprostone (AMITIZA) 24 MCG capsule Encounter Details Date Type Department Care Team Description 01/24/2018 Telephone Medicine/Pediatrics - [address] [phone] Maricruz Winter MD Prior Authorization (lubiprostone (AMITIZA) 24 MCG capsule) Social History Tobacco Use Types Packs/Day Years Used Date Smoking Tobacco: Every Day Cigarettes 0.3 Smokeless Tobacco: Never Comments:5 cigs/day - kennedy ab; also e-cig Alcohol Use Standard Drinks/Week Comments No 0 (1 standard drink = 0.6 oz pur e alcohol) Quit in May Sex Assigned at Date Recorded Not on file documented as of this encounter Miscellaneous Notes * Telephone Encounter - Simona Olivares M.A. - 01/25/2018 12:52 PM EDT Msg for pt to call back. There was a change in her medication due to ins coverage * Telephone Encounter - Brenda Burroughs P.A.-C. - 01/25/2018 12:31 PM EDT Rx sent * Telephone Encounter - Simona Olivares M.A. - 01/25/2018 9:15 AM EDT Insurance criteria for the amitiza Pt has to have tried and failed lactulose within the past 180 days [place] [id number] Prior Auth pool Simona Olivares M.A. [facility] Prior Authorizations Ext [id number] * Telephone Encounter - Corrine Pringle - 01/24/2018 10:00 AM EDT Pre Authorization for Medication-do not complete and send this encounter unless you have the fax from the pharmacy. Is this a Cover My Meds request: Yes -- Mar Code [id number] Name of Medication lubiprostone (AMITIZA) 24 MCG capsule Dose of Medication 24MCG How does patient take this med? What Pharmacy did the fax come from: [facility] Pharmacy fax #: [phone] Third Constitution Party Information from fax: What Prescription Plan does the patient have? BIN/PCN if applicable: Cardholder ID: Person Code: Relationship Code: Help desk phone: *FAXED TO PRIOR AUTH documented in this encounter Plan of Treatment Not on file documented as of this encounter Visit Diagnoses Not on filedocumented in this encounter Care Teams Chipping Machine Operator Relationship Specialty Start Date End Date Maricruz Winter MD PCP - General 03/30/11 11/23/21 Isha Armstrong MD [address] [place] [address] PCP - General Internal Medicine 11/24/21 03/02/22 Cheryl Gallego MD [address] [place] [address] PCP - General Internal Medicine 03/03/22 06/14/23 [facility], Pcp [address] [place], [place] [id number] PCP - General Internal Medicine 06/15/23 10/22/23 Amrik Mendoza MD [address] [place] [address] PCP - General Family Practice 10/23/23 Amrik Mendoza MD [address] [place] [address] Primary Care Physician Family Practice 10/23/23 Puma Gordon MD [address] [place] [address] Lung Cancer Distribution Technician 10/23/23 Maritza Van NP [address] [place] [address] Referring Physician Nurse Practioner Adult Health 10/23/23 documented as of this encounter
--- OUTSIDE RECORDS SUMMARY | 2024-12-18 11:58 | XMS_ITS | Encounter Summary ---
Author Organization [facility] Address [address] [place] [address] Care Team Providers Care Teleservices Representative Name Role Phone Maricruz Winter MD Primary Care Provider Un available Isha Armstrong MD Primary Care Provider [phone] Cheryl Gallego MD Primary Care Prov ider [facility], Pcp Primary Care Provider Amrik Chadwick MD Unavailable Puma Sy MD Unavailable Maritza Van NP Unavailable Armik Chadwick MD Primary Care Provider Unav ailable Reason for Visit * Reason Onset Date Comments Faxed Refill 09/17/2020 Encounter Details Date Type Department Care Team Description 09/17/2020 Refill Medicine/Pediatrics - [address] [phone] Maricruz Winter MD Faxed Refill Social History Tobacco Use Types Packs/Day Years Used Date Smoking Tobacco: Former Cigarettes 0.3 Q uit: 11/28/2018 Smokeless Tobacco: Never Alcohol Use Standard Drinks/Week Comments No 0 (1 standard drink = 0.6 oz pur e alcohol) Quit in May Sex Assigned at Date Recorded Not on file COVID-19 Exposure Response Date Recorded In the last month, have you been in contact with someone who was confirmed or suspected to have Coronavirus / COVID-19? Unable to assess 09/06/2020 1:14 PM EST documented as of this encounter Miscellaneous Notes * Telephone Encounter - Shala Grimes M.A. - 09/17/2020 10:40 AM EST rx faxed * Telephone Encounter - Shala Grimes M.A. - 09/17/2020 10:35 AM EST Lab Results Component Value Date NA 135 01/27/2019 K 4.8 01/27/2019 CO2 26 01/27/2019 CL 101 01/27/2019 BUN 11 01/27/2019 CREAT 0.75 01/27/2019 GLU 94 01/27/2019 CA 10.1 01/27/2019 GFR > 60 01/27/2019 Pending appt with pcp 09/29/20 * Telephone Encounter - Ayla Smith - 09/17/2020 10:34 AM EST Patient would like script to be: E-PRESCRIBED/FAXED TO PHARMACY WHEN WAS THE PATIENT'S LAST APPOINTMENT IN ADULT MEDICINE? 09/06/20 WHEN WAS THE LAST TIME THE PATIENT SAW THEIR PCP? 07/16/20 Does patient have an upcoming appointment? Yes 09/29/20 (THE MEDICATION REQUESTED IS ON THE MED LIST ABOVE) All of the medications requested were on the CURRENT MEDS list Did you check the Pharmacy information above?: YES Patient wants: 90 -day supply Is this a mail order prescription request ? NO If the refill is from a FAXED refill request what is the RX # listed on the fax? N/A Patients current insurance carrier is: Payor: WORKERS COMP / Plan: WORKERS COMPENSATION/[place] / Product Type: OTHER documented in this encounter Plan of Treatment Not on file documented as of this encounter Visit Diagnoses Not on filedocumented in this encounter Care Teams Teleservices Representative Relationship Specialty Start Date End Date Maricruz Winter MD PCP - General 03/30/11 11/23/21 Isha Armstrong MD [address] [place] [address] PCP - General Internal Medicine 11/24/21 03/02/22 Cheryl Gallego MD [address] [place] [address] PCP - General Internal Medicine 03/03/22 06/14/23 [place] [address] PCP - General Internal Medicine 06/15/23 10/22/23 Amrik Mendoza MD [address] [place] [address] PCP - General Family Practice 10/23/23 Amrik Mendoza MD [address] [place] [address] Primary Care Physician Family Practice 10/23/23 Puma Gordon MD [address] [place] [address] Lung Cancer Greige Mender 10/23/23 Maritza Van NP [address] [place], [place] [address] Referring Physician Nurse Practioner Adult [facility] 10/23/23 documented as of this encounter
--- OUTSIDE RECORDS SUMMARY | 2024-12-18 11:59 | XMS_ITS | Encounter Summary ---
Author Organization [facility] Address [address] [place] [address] Care Team Providers Care Instructor Business Education Name Role Phone Maricruz Winter MD Primary Care Provider Un available Isha Armstrong MD Primary Care Provider [phone] Cheryl Gallego MD Primary Care Prov ider [facility], Pcp Primary Care Provider Amrik Chadwick MD Unavailable UnavailPuma Nolasco MD Unavailable Maritza Van NP Unavailable Amrik Chadwick MD Primary Care Provider Unav ailable Encounter Details Date Type Department Care Team Description 04/08/2015 Command And Control Specialist Report Medical Records [address] [place] [address] Mariano Garcia Social History Tobacco Use Types Packs/Day Years [...] on filedocumented in this encounter Care Teams Instructor Business Education Relationship Specialty Start Date End Date Maricruz Winter MD PCP - General 03/30/11 11/23/21 Isha Armstrong MD [address] [place] [address] PCP - General Internal Medicine 11/24/21 03/02/22 Cheryl Gallego MD [address] [place] [address] PCP - General Internal Medicine 03/03/22 06/14/23 [facility], [place] [address] PCP - General Internal Medicine 06/15/23 10/22/23 Amrik Mendoza MD [address] [place] [address] PCP - General Family Practice 10/23/23 Amrik Mendoza MD [address] [place] [address] Primary Care Physician Family Practice 10/23/23 Puma Gordon MD [address] [place] [address] Lung Cancer Marble Chip Terrazzo Worker 10/23/23 Maritza Van NP [address] [place] [address] Referring Physician Nurse Practioner Adult Health 10/23/23 documented as of this encounter
--- OUTSIDE RECORDS SUMMARY | 2024-12-18 11:59 | XMS_ITS | Encounter Summary ---
Author Organization [facility] Address [address] [place] [address] Care Team Providers Care Charter Boat Operator Name Role Phone Maricruz Winter MD Primary Care Provider Un available Isha Armstrong MD Primary Care Provider [phone] Cheryl Gallego MD Primary Care Prov ider [facility], Pcp Primary Care Provider Amrik Chadwick MD Unavailable UnavailPuma Nolasco MD Unavailable Maritza Van NP Unavailable Amrik Chadwick MD Primary Care Provider Unav ailable Encounter Details Date Type Department Care Team Description 05/12/2015 Denture Contour Wire Specialist Report Medical Records [address] [place] [address] Cooper Hurst Social History Tobacco Use Types Packs/Day Years [...] on filedocumented in this encounter Care Teams Charter Boat Operator Relationship Specialty Start Date End Date Maricruz Winter MD PCP - General 03/30/11 11/23/21 Isha Armstrong MD [address] [place] [address] PCP - General Internal Medicine 11/24/21 03/02/22 Cheryl Gallego MD [address] [place] [address] PCP - General Internal Medicine 03/03/22 06/14/23 [facility], [place] [address] PCP - General Internal Medicine 06/15/23 10/22/23 Amrik Mendoza MD [address] [place] [address] PCP - General Family Practice 10/23/23 Amrik Mendoza MD [address] [place] [address] Primary Care Physician Family Practice 10/23/23 Puma Gordon MD [address] [place] [address] Lung Cancer Mine Car Repairer 10/23/23 Maritza Van NP [address] [place] [address] Referring Physician Nurse Practioner Adult Health 10/23/23 documented as of this encounter
--- OUTSIDE RECORDS SUMMARY | 2024-12-18 11:59 | XMS_ITS | Encounter Summary ---
Author Organization [facility] Address [address] [place] [address] Care Team Providers Care Basket Assembler Name Role Phone Maricruz Winter MD Primary Care Provider Un available Isha Armstrong MD Primary Care Provider [phone] Cheryl Gallego MD Primary Care Prov ider [facility], Pcp Primary Care Provider Amrik Chadwick MD Unavailable UnavailPuma Nolasco MD Unavailable Maritza Van NP Unavailable Amrik Chadwick MD Primary Care Provider Unav ailable Encounter Details Date Type Department Care Team Description 04/28/2015 Microsoft Dynamics Developer Report Medical Records [address] [place] [address] Cooper Hurst Social History Tobacco Use Types [...] on filedocumented in this encounter Care Teams Basket Assembler Relationship Specialty Start Date End Date Maricruz Winter MD PCP - General 03/30/11 11/23/21 Isha Armstrong MD [address] [place] [address] PCP - General Internal Medicine 11/24/21 03/02/22 Cheryl Gallego MD [address] [place] [address] PCP - General Internal Medicine 03/03/22 06/14/23 [facility], [place] [address] PCP - General Internal Medicine 06/15/23 10/22/23 Amrik Mendoza MD [address] [place] [address] PCP - General Family Practice 10/23/23 Amrik Mendoza MD [address] [place] [address] Primary Care Physician Family Practice 10/23/23 Puma Gordon MD [address] [place] [address] Lung Cancer Sales Leader 10/23/23 Maritza Van NP [address] [place] [address] Referring Physician Nurse Practioner Adult Health 10/23/23 documented as of this encounter
--- OUTSIDE RECORDS SUMMARY | 2024-12-18 11:59 | XMS_ITS | Encounter Summary ---
Author Organization [facility] Address [address] [place] [address] Care Team Providers Care Mail Carrier And Clerk Name Role Phone Maricruz Winter MD Primary Care Provider Un available Isha Armstrong MD Primary Care Provider [phone] Cheryl Gallego MD Primary Care Prov ider [facility], Pcp Primary Care Provider Amrik Chadwick MD Unavailable UnavailPuma Nolasco MD Unavailable Maritza Van NP Unavailable Amrik Chadwick MD Primary Care Provider Unav ailable Encounter Details Date Type Department Care Team Description 03/26/2015 Fiber Designer Report Medical Records [address] [place] [address] Cooper Hurst Social History Tobacco Use Types [...] on filedocumented in this encounter Care Teams Mail Carrier And Clerk Relationship Specialty Start Date End Date Maricruz Winter MD PCP - General 03/30/11 11/23/21 Isha Armstrong MD [address] [place] [address] PCP - General Internal Medicine 11/24/21 03/02/22 Cheryl Gallego MD [address] [place] [address] PCP - General Internal Medicine 03/03/22 06/14/23 [facility], [place] [address] PCP - General Internal Medicine 06/15/23 10/22/23 Amrik Mendoza MD [address] [place] [address] PCP - General Family Practice 10/23/23 Amrik Mendoza MD [address] [place] [address] Primary Care Physician Family Practice 10/23/23 Puma Gordon MD [address] [place] [address] Lung Cancer Automotive Dismantler 10/23/23 Maritza Van NP [address] [place] [address] Referring Physician Nurse Practioner Adult Health 10/23/23 documented as of this encounter
--- OUTSIDE RECORDS SUMMARY | 2024-12-18 11:59 | XMS_ITS | Encounter Summary ---
Author Organization [facility] Address [address] [place] [address] Care Team Providers Care Barkeep Name Role Phone Maricruz Winter MD Primary Care Provider Un available Isha Armstrong MD Primary Care Provider [phone] Cheryl Gallego MD Primary Care Prov ider [facility], Pcp Primary Care Provider Amrik Chadwick MD Unavailable Puma Sy MD Unavailable Maritza Van NP Unavailable Amrik Chadwick MD Primary Care Provider Unav ailable Encounter Details Date Type Department Care Team Description 10/09/2019 Orders Only Medical Records [address] [place] [address] Maricruz Winter MD Social History Tobacco Use [...] on file documented as of this encounter Procedures Procedure Name Priority Date/Time Associated Diagnosis Comments OUTSIDE STRESS TEST Routine 10/06/2019 documented in this encounter Results * OUTSIDE STRESS TEST (10/06/2019) Maricruz Winter MD CARDIOLOGY documented in this encounter Visit Diagnoses Not on filedocumented in this encounter Care Teams Barkeep Relationship Specialty Start Date End Date Maricruz Winter MD PCP - General 03/30/11 11/23/21 Isha Armstrong MD [address] [place] [address] PCP - General Internal Medicine 11/24/21 03/02/22 Cheryl Gallego MD [address] [place] [address] PCP - General Internal Medicine 03/03/22 06/14/23 [place] [address] PCP - General Internal Medicine 06/15/23 10/22/23 Amrik Mendoza MD [address] [place] [address] PCP - General Family Practice 10/23/23 Amrik Mendoza MD [address] [place] [address] Primary Care Physician Family Practice 10/23/23 Puma Gordon MD [address] [place] [address] Lung Cancer Airline Pilot Flight Instructor 10/23/23 Maritza Van NP [address] [place] [address] Referring Physician Nurse Practioner Adult Health 10/23/23 documented as of this encounter
--- OUTSIDE RECORDS SUMMARY | 2024-12-18 11:59 | XMS_ITS | Encounter Summary ---
Author Organization [facility] Address [address] [place] [address] Care Team Providers Care Online Merchandiser Name Role Phone Maricruz Winter MD Primary Care Provider Un available Isha Armstrong MD Primary Care Provider [phone] Cheryl Gallego MD Primary Care Prov ider [facility], Pcp Primary Care Provider Amrik Chadwick MD Unavailable Puma Sy MD Unavailable Maritza Van NP Unavailable Amrik Chadwick MD Primary Care Provider Unav ailable Encounter Details Date Type Department Care Team Description 05/09/2019 Release of Information Medical Records [address] [place] [address] Abstract, Provider Social History Tobacco Use Types Packs/Day Years Used Date Smoking Tobacco: Former Cigarettes 0.3 Q uit: 11/28/2018 Smokeless Tobacco: Never Comments:5 cigs/day - decrea sing; also e-cig Alcohol Use Standard Drinks/Week Comments No 0 (1 standard drink = 0.6 oz pur e alcohol) Quit in May Sex Assigned at Date Recorded Not on file documented as of this encounter Plan of Treatment Not on file documented as of this encounter Visit Diagnoses Not on filedocumented in this encounter Care Teams Online Merchandiser Relationship Specialty Start Date End Date Maricruz Winter MD PCP - General 03/30/11 11/23/21 Isha Armstrong MD [address] [place] [address] PCP - General Internal Medicine 11/24/21 03/02/22 Cheryl Gallego MD [address] [place] [address] PCP - General Internal Medicine 03/03/22 06/14/23 [facility], [place] [address] PCP - General Internal Medicine 06/15/23 10/22/23 Amrik Mendoza MD [address] [place] [address] PCP - General Family Practice 10/23/23 Amrik Mendoza MD [address] [place] [address] Primary Care Physician Family Practice 10/23/23 Puma Gordon MD [address] [place] [address] Lung Cancer [place] 10/23/23 Maritza Van NP [address] [place] [address] Referring Physician Nurse Practioner Adult Health 10/23/23 documented as of this encounter
--- OUTSIDE RECORDS SUMMARY | 2024-12-18 11:59 | XMS_ITS | Encounter Summary ---
Author Organization [facility] Address [address] [place] [address] Care Team Providers Care Hydrometeorologist Name Role Phone Maricruz Winter MD Primary Care Provider Un available Isha Armstrong MD Primary Care Provider [phone] Cheryl Gallego MD Primary Care Prov ider [facility], Pcp Primary Care Provider Amrik Chadwick MD Unavailable Puma Sy MD Unavailable Maritza Van NP Unavailable Amrik Chadwick MD Primary Care Provider Unav ailable Encounter Details Date Type Department Care Team Description 02/07/2016 Pt. Non Urgent Medical Question Medicine/Pediatric - [address] [address] Maricruz Winter MD Essential hypertension, benign; Pure hypercholesterolemia Social History Tobacco Use Types Packs/Day Years [...] Progress Notes * Shannan Mcmahon L.P.N. - 02/07/2016 1:54 PM EDTFrom: Lety Chi To: Maricruz Winter MD Sent: 02/07/2016 1:53 PM EDT Subject: Order for Labs I have made a my six-month follow-up appt. on 04/17 to go over labs. Please make sure that an order is placed for the labs. Thank you. Lety Chi documented in this encounter Plan of Treatment Not on file documented as of this encounter Results * (ABNORMAL) LIPID PROFILE (03/13/2016 8:59 AM EDT) Cholesterol 220(H) 0 - 200 mg/dL 03/13/2016 12:53 PM EDT [facility] TRIGLYCERIDES 123 0 - 150 mg/dL 03/13/2016 12:53 PM EDT [facility] HDL CHOLESTEROL 95 >40 mg/dL 6 12:53 PM T [facility] LDL CALCULATED 101(H) 0 - 100 mg/dL 03/13/2016 12:53 PM T [facility] TC-HDLC RATIO 2 0.0 - 4.4 mg/dL 03/13/2016 12:53 PM T [facility] 03/13/2016 8:59 AM EDT 03/13/2016 8:59 AM EDT Maricruz Winter MD LAB [facility] [address] [facility] * COMPREHENSIVE METABOLIC PANEL (03/13/2016 8:59 AM EDT) BUN/CREAT RATIO 12.9 6.0 - 20.0 6 12:53 PM EDT [facility] TOTAL PROTEIN 6.9 6.0 - 8.3 gm/dL 03/13/2016 12:53 PM EDT [facility] Albumin 4.6 3.2 - 5.6 gm/dL 03/13/2016 12:53 PM EDT [facility] GLOBULIN 2.3 1.9 - 4.4 gm/dL 03/13/2016 12:53 PM EDT [facility] A/G RATIO 2.0 1.1 - 2.3 03/13/2016 12:53 PM EDT [facility] BILI,TOTAL 0.2 0.0 - 1.2 mg/dL 03/13/2016 12:53 PM EDT [facility] AST (SGOT) 20 10 - 42 U/L 03/13/2016 12:53 PM EDT [facility] ALT( SGPT) 20 10 - 60 U/L 03/13/2016 12:53 PM EDT [facility] ALK PHOS 83 42 - 121 U/L 03/13/2016 12:53 PM EDT [facility] 03/13/2016 8:59 AM EDT 03/13/2016 8:59 AM EDT Maricruz Winter MD LAB [facility] [address] [place] [address] documented in this encounter Visit Diagnoses Diagnosis Essential hypertension, benign Pure hypercholesterolemia documented in this encounter Care Teams Hydrometeorologist Relationship Specialty Start Date End Date Maricruz Winter MD PCP - General 03/30/11 11/23/21 Isha Armstrong MD [address] [place] [address] PCP - General Internal Medicine 11/24/21 03/02/22 Cheryl Gallego MD [address] [place] [address] PCP - General Internal Medicine 03/03/22 06/14/23 [facility], Pcp [address] [place] [address] PCP - General Internal Medicine 06/15/23 10/22/23 Amrik Mendoza MD [address] [place] [address] PCP - General Family Practice 10/23/23 Amrik Mendoza MD [address] [place] [address] Primary Care Physician Family Practice 10/23/23 Puma Gordon MD [address] [place] [address] Lung Cancer Animal Ecologist 10/23/23 Maritza Van NP [address] [place] [address] Referring Physician Nurse Practioner Adult Health 10/23/23 documented as of this encounter
--- OUTSIDE RECORDS SUMMARY | 2024-12-18 11:59 | XMS_ITS | Encounter Summary ---
Author Organization [facility] Address [address] [place] [address] Care Team Providers Care Expediter Service Order Name Role Phone Maricruz Winter MD Primary Care Provider Un available Isha Armstrong MD Primary Care Provider [phone] Cheryl Gallego MD Primary Care Prov ider [facility], Pcp Primary Care Provider mArik Chadwick MD Unavailable UnavailPuma Nolasco MD Unavailable Maritza Van NP Unavailable Amrik Chadwick MD Primary Care Provider Unav ailable Encounter Details Date Type Department Care Team Description 07/27/2015 Court Orderly Report Medical Records [address] [place] [address] Wale Jordan Social History Tobacco Use Types Packs/Day Years [...] on filedocumented in this encounter Care Teams Expediter Service Order Relationship Specialty Start Date End Date Maricruz Winter MD PCP - General 03/30/11 11/23/21 Isha Armstrong MD [address] [place] [address] PCP - General Internal Medicine 11/24/21 03/02/22 Cheryl Gallego MD [address] [place] [address] PCP - General Internal Medicine 03/03/22 06/14/23 [place] [address] PCP - General Internal Medicine 06/15/23 10/22/23 Amrik Mendoza MD [address] [place] [address] PCP - General Family Practice 10/23/23 Amrik Mendoza MD [address] [place] [address] Primary Care Physician Family Practice 10/23/23 Puma Gordon MD [address] [place] [address] Lung Cancer Computer Discovery Teacher 10/23/23 Maritza Van NP [address] [place] [address] Referring Physician Nurse Practioner Adult Health 10/23/23 documented as of this encounter
--- OUTSIDE RECORDS SUMMARY | 2024-12-18 11:59 | XMS_ITS | Encounter Summary ---
Author Organization [employer] [facility] Address [address] [place] [address] Care Team Providers Care Plate Preparer Name Role Phone Maricruz Winter MD Primary Care Provider Un available Isha Armstrong MD Primary Care Provider [phone] Cheryl Gallego MD Primary Care Prov ider [facility], Pcp Primary Care Provider Amrik Chadwick MD Unavailable Puma Sy MD Unavailable Maritza Van NP Unavailable Amrik Chadwick MD Primary Care Provider Unav ailable Encounter Details Date Type Department Care Team Description 08/07/2018 Refill Medicine/Pediatrics - [address] [address] Maricruz Winter MD Social History Tobacco Use [...] encounter Miscellaneous Notes * Telephone Encounter - Cindy Stein M.A. - 08/07/2018 4:49 PM EST To pt. paper cup machine operator signature and ID required * Telephone Encounter - Gayla Aguero M.A. - 08/07/2018 12:38 PM EST Last ov 07/24/18. CSC reviewed. Last RX 07/01/18. Pt due for refill. LETTER OF MEDICAL NECESSITY PENDED. [facility]PAT printed - to provider. Does not need to be scanned. Lab Results Component Value Date URINEOXYCOD NEGATIVE 01/17/2018 URBENZO NEGATIVE 01/17/2018 URAMPHETAMIN NEGATIVE 01/17/2018 URMARIJUANA NEGATIVE 01/17/2018 UROPIATES POSITIVE 01/17/2018 URBARBITUATE NEGATIVE 01/17/2018 URCOCAINE NEGATIVE 01/17/2018 HYDROCODONE 1884 02/02/2017 * Telephone Encounter - Gayla Aguero M.A. - 08/07/2018 12:37 PM ESTFrom: Lety Chi To: Maricruz Winter MD Sent: 08/07/2018 12:08 PM EST Subject: Medication Renewal Request Original authorizing provider: MD Lety Schwartz would like a refill of the following medications: busPIRone (BUSPAR) 10 MG tablet [Maricruz Winter MD] hydrocodone-acetaminophen (NORCO) 10-325 MG per tablet [Maricruz Winter MD] Preferred pharmacy: [id number] - [place], [place] - [address] [place] [address] AT [facility] Comment: Please make sure that the script for busPIRone is for 90 days. Thank you. documented in this encounter Plan of Treatment Not on file documented as of this encounter Visit Diagnoses Diagnosis Chronic neck pain Cervicalgia documented in this encounter Care Teams Plate Preparer Relationship Specialty Start Date End Date Maricruz Winter MD PCP - General 03/30/11 11/23/21 Isha Armstrong MD [address] [place] [address] PCP - General Internal Medicine 11/24/21 03/02/22 Cheryl Gallego MD [address] [place] [address] PCP - General Internal Medicine 03/03/22 06/14/23 [facility], [place] [address] PCP - General Internal Medicine 06/15/23 10/22/23 Amrik Mendoza MD [address] [place], [place] [id number] PCP - General Family Practice 10/23/23 Amrik Mendoza MD [address] [place] [address] Primary Care Physician Family Practice 10/23/23 Puma Gordon MD [address] [place] [address] Lung Cancer Php Website Developer 10/23/23 Maritza Van NP [address] [place], [place] [id number] Referring Physician Nurse Practioner Adult Health 10/23/23 documented as of this encounter
--- OUTSIDE RECORDS SUMMARY | 2024-12-18 11:59 | XMS_ITS | Encounter Summary ---
Author Organization [facility] Address [address] [place] [address] Care Team Providers Care Roof Service Technician Name Role Phone Cheryl Gallego MD Primary Care Prov ider [facility], Pcp Primary Care Provider Amrik Chadwick MD Unavailable Puma Sy MD Unavailable Maritza Van NP Unavailable Amrik Chadwick MD Primary Care Provider Unav ailable Encounter Details Date Type Department Care Team Description 06/21/2022 Pt. Non Urgent Medical Question Adult Medicine [address] [address] Cheryl Gallego MD [address] [place] [address] Social History Tobacco Use Types Packs/Day Years [...] on filedocumented in this encounter Care Teams Roof Service Technician Relationship Specialty Start Date End Date Cheryl Gallego MD [address] [place] [address] PCP - General Internal Medicine 03/03/22 06/14/23 [facility], Pcp [address] [place] [address] PCP - General Internal Medicine 06/15/23 10/22/23 Amrik Mendoza MD [address] [place] [address] PCP - General Family Practice 10/23/23 Amrik Mendoza MD [address] [place] [address] Primary Care Physician Family Practice 10/23/23 Puma Gordon MD [address] [place] [address] Lung Cancer Scarfing Machine Operator 10/23/23 Maritza Van NP [address] [place] [address] Referring Physician Nurse Practioner Adult Health 10/23/23 documented as of this encounter
--- OUTSIDE RECORDS SUMMARY | 2024-12-18 11:59 | XMS_ITS | Encounter Summary ---
Author Organization [facility] Address [address] [place] [address] Care Team Providers Care Patcher Helper Name Role Phone Maricruz Winter MD Primary Care Provider Un available Isha Armstrong MD Primary Care Provider [phone] Cheryl Gallego MD Primary Care Prov ider [facility], Pcp Primary Care Provider Amrik Chadwick MD Unavailable Puma Sy MD Unavailable Maritza Van NP Unavailable Amrik Chadwick MD Primary Care Provider Unav ailable Encounter Details Date Type Department Care Team Description 11/25/2018 [facility] Medical Records [address] [place] [address] Abstract, Provider Social History Tobacco Use Types [...] on filedocumented in this encounter Care Teams Patcher Helper Relationship Specialty Start Date End Date Maricruz Winter MD PCP - General 03/30/11 11/23/21 Isha Armstrong MD [address] [place] [address] PCP - General Internal Medicine 11/24/21 03/02/22 Cheryl Gallego MD [address] [place] [address] PCP - General Internal Medicine 03/03/22 06/14/23 [place] [address] PCP - General Internal Medicine 06/15/23 10/22/23 Amrik Mendoza MD [address] [place] [address] PCP - General Family Practice 10/23/23 Amrik Mendoza MD [address] [place] [address] Primary Care Physician Family Practice 10/23/23 Puma Gordon MD [address] [place] [address] Lung Cancer Tapper Operator 10/23/23 Maritza Van NP [address] [place] [address] Referring Physician Nurse Practioner Adult Health 10/23/23 documented as of this encounter
--- OUTSIDE RECORDS SUMMARY | 2024-12-18 11:59 | XMS_ITS | Encounter Summary ---
Author Organization [facility] Address [address] [place] [address] Care Team Providers Care Back End Engineer Name Role Phone Maricruz Winter MD Primary Care Provider Un available Isha Armstrong MD Primary Care Provider [phone] Cheryl Gallego MD Primary Care Prov ider [facility], Pcp Primary Care Provider Amrik Chadwick MD Unavailable UnavailPuma Nolasco MD Unavailable Maritza Van NP Unavailable Amrik Chadwick MD Primary Care Provider Unav ailable Encounter Details Date Type Department Care Team Description 07/02/2015 Boilermaking Supervisor Report Medical Records [address] [place] [address] Cooper Hurst Social History Tobacco Use Types [...] on filedocumented in this encounter Care Teams Back End Engineer Relationship Specialty Start Date End Date Maricruz Winter MD PCP - General 03/30/11 11/23/21 Isha Armstrong MD [address] [place] [address] PCP - General Internal Medicine 11/24/21 03/02/22 Cheryl Gallego MD [address] [place] [address] PCP - General Internal Medicine 03/03/22 06/14/23 [facility], [place] [address] PCP - General Internal Medicine 06/15/23 10/22/23 Amrik Mendoza MD [address] [place] [address] PCP - General Family Practice 10/23/23 Amrik Mendoza MD [address] [place] [address] Primary Care Physician Family Practice 10/23/23 Puma Gordon MD [address] [place] [address] Lung Cancer Vamp Liner 10/23/23 Maritza Van NP [address] [place] [address] Referring Physician Nurse Practioner Adult Health 10/23/23 documented as of this encounter
--- OUTSIDE RECORDS SUMMARY | 2024-12-18 11:59 | XMS_ITS | Encounter Summary ---
Author Organization [facility] Address [address] [place] [address] Care Team Providers Care Petroleum Engineering Teacher Name Role Phone Community, Pcp Primary Care Provider Amrik Chadwick MD Unavailable Puma yS MD Unavailable Maritza Van NP Unavailable Amrik Chadwick MD Primary Care Provider Unav ailable Encounter Details Date Type Department Care Team Description 10/10/2023 Occupational Health Specialist Report Medical Records [address] [place] [address] Maritza Van NP Social History Tobacco Use Types Packs/Day Years [...] on filedocumented in this encounter Care Teams Petroleum Engineering Teacher Relationship Specialty Start Date End Date Community, Pcp PCP - General Internal Medicine 06/15/23 10/22/23 Amrik Mendoza MD PCP - General Family Practice 10/23/23 Amrik Mendoza MD Primary Care Physician Family Practice 10/23/23 Puma Gordon MD Lung Cancer Forger Helper 10/23/23 Maritza Van NP Referring Physician Nurse Practioner Adult Health 10/23/23 documented as of this encounter
--- OUTSIDE RECORDS SUMMARY | 2024-12-18 11:59 | XMS_ITS | Encounter Summary ---
Author Organization [facility] Address [address] [place] [address] Care Team Providers Care Weaving Loom Operator Name Role Phone Maricruz Winter MD Primary Care Provider Un available Isha Armstrong MD Primary Care Provider [phone] Cheryl Gallego MD Primary Care Prov ider [facility], Pcp Primary Care Provider Amrik Chadwick MD Unavailable UnavailPuma Nolasco MD Unavailable Maritza Van NP Unavailable Amrik Chadwick MD Primary Care Provider Unav ailable Encounter Details Date Type Department Care Team Description 06/04/2015 Retail Sales Assistant Report Medical Records [address] [place] [address] Cooper Hurst Social History Tobacco Use Types [...] on filedocumented in this encounter Care Teams Weaving Loom Operator Relationship Specialty Start Date End Date Maricruz Winter MD PCP - General 03/30/11 11/23/21 Isha Armstrong MD [address] [place] [address] PCP - General Internal Medicine 11/24/21 03/02/22 Cheryl Gallego MD [address] [place] [address] PCP - General Internal Medicine 03/03/22 06/14/23 [facility], [place] [address] PCP - General Internal Medicine 06/15/23 10/22/23 Amrik Mendoza MD [address] [place] [address] PCP - General Family Practice 10/23/23 Amrik Mendoza MD [address] [place] [address] Primary Care Physician Family Practice 10/23/23 Puma Gordon MD [address] [place] [address] Lung Cancer Hand Baseball Sewer 10/23/23 Maritza Van NP [address] [place] [address] Referring Physician Nurse Practioner Adult Health 10/23/23 documented as of this encounter
--- OUTSIDE RECORDS SUMMARY | 2024-12-18 11:59 | XMS_ITS | Encounter Summary ---
Author Organization [facility] Address [address] [place] [address] Care Team Providers Care Paint Grinder Stone Mill Name Role Phone Maricruz Winter MD Primary Care Provider Un available Isha Armstrong MD Primary Care Provider Cheryl Gallego MD Primary Care Prov ider [facility], Pcp Primary Care Provider Amrik Chadwick MD Unavailable Puma Sy MD Unavailable Maritza Van NP Unavailable Amrik Chadwick MD Primary Care Provider Unav ailable Encounter Details Date Type Department Care Team Description 09/06/2015 COMPUTERIZED MILL RECORDER/MassPat Report Medical Records [address] [place] [address] Abstract, Provider Social History Tobacco Use Types [...] on filedocumented in this encounter Care Teams Paint Grinder Stone Mill Relationship Specialty Start Date End Date Maricruz Winter MD PCP - General 03/30/11 11/23/21 Isha Armstrong MD [address] [place] [address] PCP - General Internal Medicine 11/24/21 03/02/22 Cheryl Gallego MD [address] [place] [address] PCP - General Internal Medicine 03/03/22 06/14/23 [facility], [place] [address] PCP - General Internal Medicine 06/15/23 10/22/23 Amrik Mendoza MD [address] [place] [address] PCP - General Family Practice 10/23/23 Amrik Mendoza MD [address] [place] [address] Primary Care Physician Family Practice 10/23/23 Puma Gordon MD [address] [place] [address] Lung Cancer Gem Cutter 10/23/23 Maritza Van NP [address] [place] [address] Referring Physician Nurse Practioner Adult Health 10/23/23 documented as of this encounter
--- OUTSIDE RECORDS SUMMARY | 2024-12-18 11:59 | XMS_ITS | Encounter Summary ---
Author Organization [facility] Address [address] [place] [address] Care Team Providers Care It Instructor Name Role Phone Maricruz Winter MD Primary Care Provider Un available Isha Armstrong MD Primary Care Provider [phone] Cheryl Gallego MD Primary Care Prov ider Community, Pcp Primary Care Provider Amrik Chadwick MD Unavailable Puma Sy MD Unavailable Maritza Van NP Unavailable Amrik Chadwick MD Primary Care Provider Unav ailable Encounter Details Date Type Department Care Team Description 04/15/2019 Controlled Substance Contract with [facility] Medical Records [address] [place] [address] Abstract, Provider Social History Tobacco Use Types [...] on filedocumented in this encounter Care Teams It Instructor Relationship Specialty Start Date End Date Maricruz Winter MD PCP - General 03/30/11 11/23/21 Isha Armstrong MD [address] [place] [address] PCP - General Internal Medicine 11/24/21 03/02/22 Cheryl Gallego MD [address] [place] [address] PCP - General Internal Medicine 03/03/22 06/14/23 [facility], [place] [address] PCP - General Internal Medicine 06/15/23 10/22/23 Amrik Mendoza MD [address] [place] [address] PCP - General Family Practice 10/23/23 Amrik Mendoza MD [address] [place] [address] Primary Care Physician Family Practice 10/23/23 Puma Gordon MD [address] [place] [address] Lung Cancer Varnish Cooker 10/23/23 Maritza Van NP [address] [place] [address] Referring Physician Nurse Practioner Adult Health 10/23/23 documented as of this encounter
--- OUTSIDE RECORDS SUMMARY | 2024-12-18 11:59 | XMS_ITS | Encounter Summary ---
Author Organization [facility] Address [address] [place] [address] Care Team Providers Care Wedding Photographer Name Role Phone Maricruz Winter MD Primary Care Provider Un available Isha Armstrong MD Primary Care Provider [phone] Cheryl Gallego MD Primary Care Prov ider [facility], Pcp Primary Care Provider Amirk Chadwick MD Unavailable UnavailPuma Nolasco MD Unavailable Maritza Van NP Unavailable Amrik Chadwick MD Primary Care Provider Unav ailable Encounter Details Date Type Department Care Team Description 07/19/2015 Machine Welt Butter Report Medical Records [address] [place] [address] Cooepr Hurst Social History Tobacco Use Types Packs/Day [...] on filedocumented in this encounter Care Teams Wedding Photographer Relationship Specialty Start Date End Date Maricruz Winter MD PCP - General 03/30/11 11/23/21 Isha Armstrong MD [address] [place] [address] PCP - General Internal Medicine 11/24/21 03/02/22 Cheryl Gallego MD [address] [place] [address] PCP - General Internal Medicine 03/03/22 06/14/23 [facility], [place] [address] PCP - General Internal Medicine 06/15/23 10/22/23 Amrik Mendoza MD [address] [place] [address] PCP - General Family Practice 10/23/23 Amrik Mendoza MD [address] [place] [address] Primary Care Physician Family Practice 10/23/23 Puma Gordon MD [address] [place] [address] Lung Cancer Software Quality Engineer 10/23/23 Maritza Van NP [address] [place] [address] Referring Physician Nurse Practioner Adult Health 10/23/23 documented as of this encounter
--- OUTSIDE RECORDS SUMMARY | 2024-12-18 11:59 | XMS_ITS | Encounter Summary ---
[facility] Organization [facility] Address [address] [place] [address] Care Team Providers Care Yarn Dumper Name Role Phone Maricruz Winter MD Primary Care Provider Un available Isha Armstrong MD Primary Care Provider [phone] Cheryl Gallego MD Primary Care Prov ider [facility], Pcp Primary Care Provider Amrik Chadwick MD Unavailable UnavailPuma Nolasco MD Unavailable Maritza Van NP Unavailable Amrik Chadwick MD Primary Care Provider Unav ailable Encounter Details Date Type Department Care Team Description 02/17/2016 Video Systems Engineer Report Medical Records [address] [place] [address] Brock Whyte Social History Tobacco Use Types Packs/Day Years [...] on filedocumented in this encounter Care Teams Yarn Dumper Relationship Specialty Start Date End Date Maricruz Winter MD PCP - General 03/30/11 11/23/21 Isha Armstrong MD [address] [place] [address] PCP - General Internal Medicine 11/24/21 03/02/22 Cheryl Gallego MD [address] [place] [address] PCP - General Internal Medicine 03/03/22 06/14/23 [facility], [place] [address] PCP - General Internal Medicine 06/15/23 10/22/23 Amrik Mendoza MD [address] [place] [address] PCP - General Family Practice 10/23/23 Amrik Mendoza MD [address] [place] [address] Primary Care Physician Family Practice 10/23/23 Puma Gordon MD [address] [place] [address] Lung Cancer Propeller Tester 10/23/23 Maritza Van NP [address] [place] [address] Referring Physician Nurse Practioner Adult Health 10/23/23 documented as of this encounter
--- OUTSIDE RECORDS SUMMARY | 2024-12-18 11:59 | XMS_ITS | Encounter Summary ---
[facility] Organization [facility] Address [address] [place] [address] Care Team Providers Care Vice President Of Customer Service Name Role Phone Community, Pcp Primary Care Provider Amrik Chadwick MD Unavailable Puma Sy MD Unavailable Maritza Van NP Unavailable Amrik Chadwick MD Primary Care Provider Unav ailable Encounter Details Date Type Department Care Team Description 07/27/2023 Business Services Analyst Report Medical Records [address] [place] [address] Maritza Van NP Social History Tobacco Use [...] on filedocumented in this encounter Care Teams Vice President Of Customer Service Relationship Specialty Start Date End Date Community, Pcp PCP - General Internal Medicine 06/15/23 10/22/23 Amrik Mendoza MD PCP - General Family Practice 10/23/23 Amrik Mendoza MD Primary Care Physician Family Practice 10/23/23 Puma Gordon MD Lung Cancer Rectifying Attendant 10/23/23 Maritza Van NP Referring Physician Nurse Practioner Adult Health 10/23/23 documented as of this encounter
--- OUTSIDE RECORDS SUMMARY | 2024-12-18 12:00 | XMS_ITS | Encounter Summary ---
[facility] Organization [facility] Address [address] [place] [address] Care Team Providers Care Meteorologist In Charge Name Role Phone Maricruz Winter MD Primary Care Provider Un available Isha Armstrong MD Primary Care Provider [phone] Cheryl Gallego MD Primary Care Prov ider [facility], Pcp Primary Care Provider Amrik Chadwick MD Unavailable Puma Sy MD Unavailable Maritza Van NP Unavailable Amrik Chadwick MD Primary Care Provider Unav ailable Encounter Details Date Type Department Care Team Description 05/25/2016 [facility] Medical Records [address] [place] [address] Abstract, Provider Social History Tobacco Use Types [...] on filedocumented in this encounter Care Teams Meteorologist In Charge Relationship Specialty Start Date End Date Maricruz Winter MD PCP - General 03/30/11 11/23/21 Isha Armstrong MD [address] [place] [address] PCP - General Internal Medicine 11/24/21 03/02/22 Cheryl Gallego MD [address] [place] [address] PCP - General Internal Medicine 03/03/22 06/14/23 [place] [address] PCP - General Internal Medicine 06/15/23 10/22/23 Amrik Mendoza MD [address] [place] [address] PCP - General Family Practice 10/23/23 Amrik Mendoza MD [address] [place] [address] Primary Care Physician Family Practice 10/23/23 Puma Gordon MD [address] [place] [address] Lung Cancer Refrigeration Manager 10/23/23 Maritza Van NP [address] [place] [address] Referring Physician Nurse Practioner Adult Health 10/23/23 documented as of this encounter
--- OUTSIDE RECORDS SUMMARY | 2024-12-18 12:00 | XMS_ITS | Encounter Summary ---
[facility] Organization [facility] Address [address] [place] [address] Care Team Providers Care Materials Buyer Name Role Phone Maricruz Winter MD Primary Care Provider Un available Isha Armstrong MD Primary Care Provider [phone] Cheryl Gallego MD Primary Care Prov ider Community, Pcp Primary Care Provider Amrik Chadwick MD Unavailable Puma Sy MD Unavailable Maritza Van NP Unavailable Amrik Chadwick MD Primary Care Provider Unav ailable Encounter Details Date Type Department Care Team Description 11/17/2016 Yarn Carrier Report Medical Records [address] [place] [address] Abstract, Provider Social History Tobacco Use Types [...] on filedocumented in this encounter Care Teams Materials Buyer Relationship Specialty Start Date End Date Maricruz Winter MD PCP - General 03/30/11 11/23/21 Isha Armstrong MD [address] [place] [address] PCP - General Internal Medicine 11/24/21 03/02/22 Cheryl Gallego MD [address] [place] [address] PCP - General Internal Medicine 03/03/22 06/14/23 [place] [address] PCP - General Internal Medicine 06/15/23 10/22/23 Amrik Mendoza MD [address] [place] [address] PCP - General Family Practice 10/23/23 Amrik Mendoza MD [address] [place] [address] Primary Care Physician Family Practice 10/23/23 Puma Gordon MD [address] [place] [address] Lung Cancer Coverer 10/23/23 Maritza Van NP [address] [place] [address] Referring Physician Nurse Practioner Adult Health 10/23/23 documented as of this encounter
--- OUTSIDE RECORDS SUMMARY | 2024-12-18 12:00 | XMS_ITS | Encounter Summary ---
Author Organization [facility] Address [address] [place] [address] Care Team Providers Care Blue Prints Trimmer Name Role Phone Maricruz Winter MD Primary Care Provider Un available Isha Armstrong MD Primary Care Provider [phone] Cheryl Gallego MD Primary Care Prov ider [facility], Pcp Primary Care Provider Amrik Chadwick MD Unavailable Puma Sy MD Unavailable Maritza Van NP Unavailable Amrik Chadwick MD Primary Care Provider Unav ailable Encounter Details Date Type Department Care Team Description 09/15/2016 Pt. Non Urgent Medic al Question Medicine/Pediatrics - [address] [address] Maricruz Winter MD Social History Tobacco Use [...] Progress Notes * Cindy Stein M.A. - 09/15/2016 1:29 PM ESTFrom: Lety Chi To: Maricruz Winter MD Sent: 09/15/2016 1:20 PM EST Subject: Prior Authorization I am checking to see if the pre-authorization form that was sent from [facility] at 4:10 yesterday has been processed yet. It is for Vicodin. My insurance company, [facility], requires the drNicholas to fill the form outbecause the prescription calls for more than 7 days worth. I only have a few pills left and the weekend is coming. I would appreciate a quick response. Thank you. Lety Chi [phone] documented in this encounter Plan of Treatment Not on file documented as of this encounter Visit Diagnoses Not on filedocumented in this encounter Care Teams Blue Prints Trimmer Relationship Specialty Start Date End Date Maricruz Winter MD PCP - General 03/30/11 11/23/21 Isha Armstrong MD [address] [place] [address] PCP - General Internal Medicine 11/24/21 03/02/22 Cheryl Gallego MD [address] [place] [address] PCP - General Internal Medicine 03/03/22 06/14/23 [facility], [place] [address] PCP - General Internal Medicine 06/15/23 10/22/23 Amrik Mendoza MD [address] [place] [address] PCP - General Family Practice 10/23/23 Amrik Mendoza MD [address] [place] [address] Primary Care Physician Family Practice 10/23/23 Puma Gordon MD [address] [place] [address] Lung Cancer Chin Strap Sewer 10/23/23 Maritza Van, KINJAL [address] [place] [address] Referring Physician Nurse Practioner [facility] 10/23/23 documented as of this encounter
--- OUTSIDE RECORDS SUMMARY | 2024-12-18 12:00 | XMS_ITS | Encounter Summary ---
Author Organization [facility] Address [address] [place] [address] Care Team Providers Care Literature Professor Name Role Phone Maricruz Winter MD Primary Care Provider Un available Isha Armstrong MD Primary Care Provider [phone] Cheryl Gallego MD Primary Care Prov ider [facility], Pcp Primary Care Provider Amrik Chadwick MD Unavailable Puma Sy MD Unavailable Maritza Van NP Unavailable Amrik Chadwick MD Primary Care Provider Unav ailable Encounter Details Date Type Department Care Team Description 03/15/2016 Pt. Non Urgent Medic al Question Medicine/Pediatrics - [address] [address] Maricruz Winter MD Social History Tobacco Use Types Packs/Day Years Used Date Smoking Tobacco: Every Day Cigarettes 0.3 Smokeless Tobacco: Never Comments:5 cigs/day - decrea sing; also e-cig Alcohol Use Standard Drinks/Week Comments No 0 (1 standard drink = 0.6 oz pur e alcohol) Quit in May Sex Assigned at Date Recorded Not on file documented as of this encounter Progress Notes * Tea Ruiz L.P.N. - 03/16/2016 9:06 AM EDTFrom: Lety Chi To: Maricruz Winter MD Sent: 03/15/2016 5:39 PM EDT Subject: Office Vist 03/28/16 I scheduled an appointment this morning to have a pre-op with Dr. Winter. The way it looks to meis that it is for just and EKG. I had the EKG today. I need to meet with Dr. Winter for the pre-op appt. documented in this encounter Plan of Treatment Not on file documented as of this encounter Visit Diagnoses Not on filedocumented in this encounter Care Teams Literature Professor Relationship Specialty Start Date End Date Maricruz Winter MD PCP - General 03/30/11 11/23/21 Isha Armstrong MD [address] [place] [address] PCP - General Internal Medicine 11/24/21 03/02/22 Cheryl Gallego MD [address] [place] [address] PCP - General Internal Medicine 03/03/22 06/14/23 [place] [id number] PCP - General Internal Medicine 06/15/23 10/22/23 Amrik Mendoza MD [address] [place] [address] PCP - General Family Practice 10/23/23 Amrik Mendoza MD [address] [place] [address] Primary Care Physician Family Practice 10/23/23 Puma Gordon MD [address] [place] [address] Lung Cancer Hematologist Oncologist 10/23/23 Maritza Van NP [address] [place] [address] Referring Physician Nurse Practioner Adult [facility] 10/23/23 documented as of this encounter
--- OUTSIDE RECORDS SUMMARY | 2024-12-18 12:00 | XMS_ITS | Encounter Summary ---
Author Organization [facility] Address [address] [place] [address] Care Team Providers Care Yolk Spray Drier Name Role Phone Maricruz Winter MD Primary Care Provider Un available Isha Armstrong MD Primary Care Provider Cheryl Gallego MD Primary Care Prov ider [facility], Pcp Primary Care Provider Amrik Chadwick MD Unavailable Puma Sy MD Unavailable Maritza Van NP Unavailable Amrik Chadwick MD Primary Care Provider Unav ailable Encounter Details Date Type Department Care Team Description 03/15/2016 Pt. Non Urgent Medical Question Cardiology - [place] [address] [place] [address] [id number] Merna Comer, CHANCE [address] [place], [place] [id number] Social History Tobacco Use Types Packs/Day Years Used Date Smoking Tobacco: Every Day Cigarettes 0.3 Smokeless Tobacco: Never Comments:5 cigs/day - decrea sing; also e-cig Alcohol Use Standard Drinks/Week Comments No 0 (1 standard drink = 0.6 oz pur e alcohol) Quit in May Sex Assigned at Date Recorded Not on file documented as of this encounter Progress Notes * Gayla GeorgeP.Josephine. - 03/16/2016 8:00 AM EDTFrom: Lety Chi To: Merna Comer DNP,WOODEN FRAME BUILDER Sent: 03/15/2016 5:48 PM EDT Subject: Duplication of Medication I notice that there are duplications on my Meds list. Please revise. Lety Chi documented in this encounter Plan of Treatment Not on file documented as of this encounter Visit Diagnoses Not on filedocumented in this encounter Care Teams Yolk Spray Drier Relationship Specialty Start Date End Date Maricruz Winter MD PCP - General 03/30/11 11/23/21 Isha Armstrong MD [address] [place] [address] PCP - General Internal Medicine 11/24/21 03/02/22 Cheryl Gallego MD [address] [place] [address] PCP - General Internal Medicine 03/03/22 06/14/23 [place] [address] PCP - General Internal Medicine 06/15/23 10/22/23 Amrik Mendoza MD [address] [place] [address] PCP - General Family Practice 10/23/23 Amrik Mendoza MD [address] [place] [address] Primary Care Physician Family Practice 10/23/23 Puma Gordon MD [address] [place] [address] Lung Cancer Window Assembler 10/23/23 Maritza Van NP [address] [place] [address] Referring Physician Nurse Practioner [facility] 10/23/23 documented as of this encounter
--- OUTSIDE RECORDS SUMMARY | 2024-12-18 12:00 | XMS_ITS | Encounter Summary ---
Author Organization [facility] Address [address] [place] [address] Care Team Providers Care Mica Miner Name Role Phone Maricruz Winter MD Primary Care Provider Un available Isha Armstrong MD Primary Care Provider [phone] Cheryl Gallego MD Primary Care Prov ider [facility], Pcp Primary Care Provider Amrik Chadwick MD Unavailable Puma Sy MD Unavailable Maritza Van NP Unavailable Amrik Chadwick MD Primary Care Provider Unav ailable Encounter Details Date Type Department Care Team Description 05/21/2013 MANAGER MATERIAL/MassPat Report Medical Records [address] [place] [address] Abstract, Provider Social History Tobacco Use Types [...] on filedocumented in this encounter Care Teams Mica Miner Relationship Specialty Start Date End Date Maricruz Winter MD PCP - General 03/30/11 11/23/21 Isha Armstrong MD [address] [place] [address] PCP - General Internal Medicine 11/24/21 03/02/22 Cheryl Gallego MD [address] [place] [address] PCP - General Internal Medicine 03/03/22 06/14/23 [facility], [place] [address] PCP - General Internal Medicine 06/15/23 10/22/23 Amrik Mendoza MD [address] [place] [address] PCP - General Family Practice 10/23/23 Amrik Mendoza MD [address] [place] [address] Primary Care Physician Family Practice 10/23/23 Puma Gordon MD [address] [place] [address] Lung Cancer Accounting Manager 10/23/23 Maritza Van NP [address] [place] [address] Referring Physician Nurse Practioner Adult Health 10/23/23 documented as of this encounter
== END 2024-12-18 11:15 | disposition home or self-care (01) ==
LOC: HO.HMCFM 10:23
PROVIDERS: PCP Family Medicine; Visit Provider Family Medicine
DX: I10 Essential (primary) hypertension (principal); E87.1 Hypo-osmolality and hyponatremia; M96.1 Postlaminectomy syndrome, not elsewhere classified; G89.4 Chronic pain syndrome

== ENCOUNTER 2025-01-07 11:05 | Outpatient (AMB) | payer OTHER, SELFPAY ==
--- NOTE | 2025-01-07 11:21 | MHC.OFFVIS ---
Vital Signs 01/07/25 11:23 Height 5 ft Weight 202 lb 13.204 oz BMI 39.6 BP 131/81 Blood Pressure Location Lt brachial Position Sitting Pulse 78 Intake Visit Reasons: Dysphagia Intake Note: Ltey presents in the office as a new patient for Dyphagia. CC: Dentist said she has white spots and she is having issue with her swallowing. States it gets worse at night, issues with dry mouth and clearing her throat. Filter Cleaner Required: No Allergies Seasonal Allergies Allergy (Severe, Verified 01/07/25 11:24) Itchy Eyes lisinopril Adverse Reaction (Severe, Verified 01/07/25 11:24) Cough pregabalin [From Lyrica] Adverse Reaction (Severe, Verified 01/07/25 11:24) Shortness of Breath celecoxib [From Celebrex] Adverse Reaction (Intermediate, Verified 01/07/25 11:24) Hypertension varenicline [From Chantix] Adverse Reaction (Intermediate, Verified 01/07/25 11:24) Depression HPI Comments Details: 59 y.o F with PMH of HTN, HLD, GERD, mild persistent asthma, chronic Lyme disease, TMJ, polyarthralgias, anterior mediastinal mass excision 2023 (lipoma), who is here for trouble swallowing. Sx have been ongoing x at least 2 years. Report feels food gets stuck in upper throat and often has to maine with water/liquids. Most of the times has issues with solids. Pills are ok. Occ regurgitation. Has globus sensation and need to cont to clear the throat. Also in the process of getting eval for Sjogrens. MBSS St eval 2023: No aspiration or penetration was observed during today's study. An esophageal screening was performed with a 13mm barium pill. The pill was held at the lower esophageal port requiring cues to take another sip of water. After this, the pilled passed into the stomach. No changes to her diet are recommended. Pt is encouraged to follow-up with her referring providers. Up to date on CRC - does cologuard. [facility] Medical History Difficulty urinating Empty sella turcica Polyarthralgia Raynauds phenomenon DDD (degenerative disc disease), cervical Mediastinal mass Asthma Chronic pain syndrome Costochondritis Thrombocytosis TMJ (temporomandibular joint syndrome) Numbness and tingling of left leg Tremors of nervous system Lyme disease Hypersomnia Snoring Hyperlipidemia HTN (hypertension) GERD (gastroesophageal reflux disease) Generalized headaches Back pain Arthritis Surgical History Mediastinal mass (11/08/23) History of mandibular surgery S/P cervical spinal fusion Hx of cervical spine surgery Hx of endoscopy Hx of colonoscopy History of salpingo-oophorectomy History of laparoscopy Hx of arthroscopy Hx of tubal ligation Hx of hysterectomy, total Hx of shoulder surgery Hx of knee surgery Family History Father Heart disease Cancer Prostate cancer Mother Dementia Congestive heart failure Social History Housing: House Are you a primary field care manager to a significant other at home: No Do you presently have visiting nurse or other home services: No Alcohol intake: current Patient Tobacco Use Status: Tobacco use Unknown Tobacco use type: Cigarette Cigarettes Per Day: 2 Years Smoked: 26 e-Cigarette/Vaping Use: Never Used Second Hand Smoke Exposure: No service: No Current occupational status: disabled Current occupational exposures/hazards: No Cognitive needs: No Hearing needs: No Vision needs: No Physical Exam Vital Signs: Last Vital Signs Pulse 78 01/07/25 11:23 BP 131/81 01/07/25 11:23 BMI result Body Mass Index 39.6 No apparent distress Nonicteric small whitish exudates in oropharynx Abdomen soft, nondistended Alert and oriented x3, normal gait Assessment & Plan Assessment & Plan (1) Dysphagia: Code(s): R13.10 - Dysphagia, unspecified Category: Medical (2) Oral pharyngeal candidiasis: Code(s): B37.0 - Candidal stomatitis Category: Medical Plan DDx for dysphagia include dysmotility, stricture/web, EoE. Pt also with whitish exudates in oropharynx on exam ? issac. plan: - fluconazole 400 mg once daily x 14 days - Barium swallow - EGD to be booked - cont omeprazole FOllow up after egd Orders: Orders [place] barium swallow Today R13.10 - Dysphagia, unspecified Medications: New fluconazole 400 mg (2 x 200 mg) PO DAILY 14 days 28 tabs 0RF Coding Level of Care Code New Pt Level 4 (20243) Diagnoses Dysphagia R13.10 Oral pharyngeal candidiasis B37.0
[2025-01-07 11:23] VITALS: BP 131/81; PULSE 78; BMI 39.6
--- OUTSIDE RECORDS SUMMARY | 2025-01-07 12:12 | XMS_ITS | Clinical Summary ---
Author Organization Elsa [employer] [facility] ity Address [address] [place] [address] Care Team Providers Care Coremaker Supervisor Name Role Phone Amrik Mendoza MD Primary Care Provider Surgical History Surgery Date Site/Laterality Comments OTHER SURGICAL HISTORY PROCEDURE: [place] OSTEOTOMY SPINE PST/PSTLAT APPR 1 VRT SGM CRV; COMMENT: surgery X 2 OTHER SURGICAL HISTORY 1993 PROCEDURE: HISTORICAL TOTAL HYSTERECTOMY W/O BSO; COMMENT: left ovary TUBAL LIGATION PROCEDURE: HISTORICAL TUBAL LIGATION OTHER SURGICAL HISTORY 1999 PROCEDURE: GA ARTHROSCOPY TEMPOROMANDIBULAR JOINT SURGICAL; COMMENT: left SALPINGOOPHORECTOMY 02/08/11 PROCEDURE: GA LAPAROSCOPY W/RMVL ADNEXAL STRUCTURES; COMMENT: Serous cystadenoma [...] Recently Relevant to Health Maintenance Care Teams Coremaker Supervisor Relationship Specialty Start Date End Date Amrik Mendoza MD [address] [place] [address] Dr Tra MA PCP - General 10/23/23
== END 2025-01-07 11:54 | disposition home or self-care (01) ==
LOC: HO.HGI 11:06
PROVIDERS: PCP Family Medicine; Visit Provider Internal Medicine
DX: R13.10 Dysphagia, unspecified (principal); B37.0 Candidal stomatitis
CPT/HCPCS: 99204

== ENCOUNTER → 2025-01-07 11:05 | Outpatient (BNVA) | payer OTHER, SELFPAY | PROVIDERS: PCP Family Medicine; Visit Provider Internal Medicine ==

== ENCOUNTER 2025-02-11 09:29 | Outpatient (REF) | payer OTHER, SELFPAY ==
--- OUTSIDE RECORDS SUMMARY | 2025-02-11 10:26 | XMS_ITS | Clinical Summary ---
Author Organization [facility] [employer] [facility] ity Address [address] [place] [address] Care Team Providers Care Manager Home Name Role Phone Amrik Mendoza MD Primary Care Provider Surgical History Surgery Date Site/Laterality Comments OTHER SURGICAL HISTORY PROCEDURE: [place] OSTEOTOMY SPINE PST/PSTLAT APPR 1 VRT SGM CRV; COMMENT: surgery X 2 OTHER SURGICAL HISTORY 1993 PROCEDURE: HISTORICAL TOTAL HYSTERECTOMY W/O BSO; COMMENT: left ovary TUBAL LIGATION PROCEDURE: HISTORICAL TUBAL LIGATION OTHER SURGICAL HISTORY 1999 PROCEDURE: AR ARTHROSCOPY TEMPOROMANDIBULAR JOINT SURGICAL; COMMENT: left SALPINGOOPHORECTOMY 02/08/11 PROCEDURE: AR LAPAROSCOPY W/RMVL ADNEXAL STRUCTURES; COMMENT: Serous cystadenoma [...] reviewed with CAD and compared to previous. The breasts are composed of fatty and fibroglandular tissue. No suspicious mass, architectural distortion or suspicious calcifications [...] Recently Relevant to Health Maintenance Care Teams Manager Home Relationship Specialty Start Date End Date Amrik Mendoza MD [address] [place] [address] Dr Tra MA PCP - General 10/23/23
[2025-02-11 13:23] LABS: MANUAL DIFF FLAG NO
[2025-02-11 13:27] LABS: Basophils Absolute Auto 0.1 X10*3/uL (0.0-0.2); Eosinophils Absolute Auto 0.2 X10*3/uL (0.0-0.4); Eosinophils Percent Auto 2.1 % (0-4); Hematocrit 41.8 % (37.0-47.0); Hemoglobin 13.4 g/dl (12.0-16.0); Imm Gran Abs Auto 0.03 X10*3/uL (0.00-0.03); Imm Gran Pct Auto 0.3 % (0.0-0.4); Lymphocytes Absolute Auto 2.2 X10*3/uL (1.2-4.9); Lymphocytes Percent Auto 24.9 % (20-40); Mean Corpuscular HGB Conc 32.1 g/dl (31.0-35.0); Mean Corpuscular Hemoglobin 29.1 pg (27.0-33.0); Mean Corpuscular Volume 90.9 fL (80.0-98.0); Mean Platelet Volume 9.2 fL (9.4-12.3); Monocytes Absolute Auto 0.6 X10*3/uL (0.1-1.2); Monocytes Percent Auto 6.8 % (2-11); Neutrophils Absolute Auto 5.8 x10*3/uL (2.0-8.3); Neutrophils Percent Auto 64.9 % (45-73); Platelet Count 565 X10*3/uL (160-400); Red Cell Distribution Width 13.7 % (11.0-16.0); White Blood Count 8.9 X10*3/uL (4.8-10.8)
[2025-02-11 13:34] LABS: Rheumatoid Factor < 13.0 IU/mL (<15.0)
[2025-02-11 13:38] LABS: Anion Gap 11 (12-20); Blood Urea Nitrogen 11 mg/dL (9-16); Calcium 9.9 mg/dL (8.4-10.2); Carbon Dioxide 24 mmol/L (22-29); Chloride 107 mmol/L (96-108); Estimated Glomerular Filt Rate > 60; Glucose Random 93 mg/dL (60-115); Sodium 138 mmol/L (135-145)
[2025-02-11 14:08] LABS: Erythrocyte Sedimentation Rate 30 MM/HR (0-20)
[2025-02-12 07:24] LABS: CRP High Sensitivity 4.1 mg/L
[2025-02-12 09:23] LABS: Lyme Abs Screen <0.90 index
[2025-02-12 16:19] LABS: Antibody to SS-A Antigen <1.0 NEG AI (<1.0 NEG); Antibody to SS-B Antigen <1.0 NEG AI (<1.0 NEG)
[2025-02-16 12:09] LABS: ANA Pattern 3 Nuclear, Speckled; Anti Nuclear Antibody Screen POSITIVE (NEGATIVE)
[2025-02-16 15:43] LABS: Cyclic Citrullinated Peptide <16 UNITS
== END 2025-02-11 09:30 | disposition home or self-care (01) ==
LOC: HO.HMGCLDS 09:29
PROVIDERS: PCP Family Medicine; Visit Provider Family Medicine
DX: Z00.00 Encounter for general adult medical examination without abnormal findings (principal); M25.50 Pain in unspecified joint; M19.90 Unspecified osteoarthritis, unspecified site; H04.123 Dry eye syndrome of bilateral lacrimal glands
CPT/HCPCS: 36415; 80048; 85025; 85652; 86038; 86039; 86141; 86200; 86235; 86431; 86617; 86618

== ENCOUNTER 2025-02-25 10:17 | Outpatient (AMB) | payer OTHER, SELFPAY ==
[2025-02-25 10:19] VITALS: BP 151/87; PULSE 77; RESP 16; O2SAT 98; BMI 39.4
--- NOTE | 2025-02-25 10:19 | MHC.OFFVIS ---
Vital Signs 02/25/25 10:19 Height 5 ft Weight 202 lb BMI 39.4 BP 151/87 H Blood Pressure Location Rt brachial Position Sitting Respiration 16 Pulse 77 Pulse Source Pulse Oximeter Pulse Oximetry (%) 98 Oxygen Delivery Method Room Air Intake Visit Reasons: FU patient req Production Control Scheduler Required: No Accompanied by: Self / Same As Patient Allergies Seasonal Allergies Allergy (Severe, Verified 02/25/25 10:23) Itchy Eyes lisinopril Adverse Reaction (Severe, Verified 02/25/25 10:23) Cough pregabalin (From Lyrica) Adverse Reaction (Severe, Verified 02/25/25 10:23) Shortness of Breath celecoxib (From Celebrex) Adverse Reaction (Intermediate, Verified 02/25/25 10:23) Hypertension varenicline (From Chantix) Adverse Reaction (Intermediate, Verified 02/25/25 10:23) Depression HPI Comments Details: Lety presents back to the office today for follow-up, chronic lower back pain Continues with left lower back pain with radiation down the left leg. Today she also endorses one-week of fecal incontinence. Diarrhea that occasionally leaks when she stands up or sometimes explosive diarrhea that she can not control. She is scheduled for upper endoscopy in the coming weeks to difficulty swallowing. Reports 1 month ago duloxetine dose was increased. She denies any side effects from this. She has since changed her health insurance, she would like to try to proceed with spinal cord stimulator trial that was not approved by prior health insurance. Pain continues to interfere with activities of daily living, mobility and functioning. Prior: The patient is a 58-year-old female presenting with chronic back that radiates down the left leg. Her lumbar pain commenced approximately one year ago, with the pain radiating from the middle of her lower back to her left leg. This has been associated with occasional numbness and a pins and needles sensation. Her chronic pain interferes with daily activities, such as walking and psychiatric orderly. She continues to have limited success with cyclobenzaprine and has faced challenges with her current insurance in relation to securing coverage for further SCS trial. She was evaluated by [facility] in the past with no plan for surgical intervention. The patient is considering changing her insurance to access more comprehensive coverage. - Onset & Timing: Initiated approximately one year ago. - Quality & Character: Described as aching with pins and needles sensation. - Primary Location: Middle of the back. - Areas of Radiation: Down the left leg, stops below the knee. - Exacerbating Factors: Reaching and certain movements. - Relieving Factors: Attempted use of muscle relaxers and OTC analgesics with minimal efficacy. - Functional Impact: Limited ability to walk and perform household activities; impacts hygiene maintenance and caregiving tasks. - Affect: Pain impacts daily function and ability to perform activities such as walking, household work, and playing with grandchildren. - Analgesia: Currently using cyclobenzaprine with Tylenol; reports these are not providing significant relief. - Adverse Effects: No specific adverse effects from the medication reported. - Activities of Daily Living: Pain restricts freedom of movement and ability to perform hygiene tasks, impacting quality of life. - Aberrant Drug Related Behaviors: No aberrant behaviors reported. Prior: Lety presents back to the office today for follow up, review of recent MRI MRI reviewed, results as per below Continues with mid and lower back pain, rated as 8 of 10. Has exhausted conservative therapy including PT, home exercise program, nonsteroidal anti-inflammatory medications, muscle relaxers, injections all without improvement of her pain Currently awaiting evaluation by endocrinology for evaluation of hyponatremia. Prior: Patient presents to the office today for follow up lower back pain report some improvement in the pain to her PSIS since injections 2 weeks ago nut midline thoracic and lower back pain persist and now feel worse endorses continued feeling of BLE heaviness and worsening numbness denies red flag symptoms including new loss of bowel, bladder or saddle anesthesia Prior: Telephone visit completed today for follow up. Patient underwent bilateral therapeutic sacroiliac joint injections 1 day ago Reports minimal improvement in pain, function and mobility since the injections. Pain today rated as 6/10. States prior to injections pain was 7/10. Prior: Lety is a very pleasant 58 year old female who presents to the office today for evaluation management of her chronic lower back and midline thoracic back pain Patient reports that she has been suffering with these pains for several years, the lower back pain has worsened over the last 3 months Today she is requesting to focus on the lower back pain Pain today is rated as 7/10, constant Pain bilateral PSIS, with radiation to posterior thighs and bilateral groin Worse with standing, sitting and climbing stairs Pain does not radiate past level of the knee Denies red flag symptoms including new loss of bowel, bladder or saddle anesthesia PT in the past has not been helpful. For the last 2 months she has been doing HEP focus on bilateral SIJ. No improvement with the HEP. Using SIJ belt, feels some mild relief when wearing it but pain remains severe with stairs. Patient has tried prescription NSAIDS, muscle relaxers, topical medications and lidocaine patches for greater than 6 months without improvement. She will be starting Wegovy for weight loss soon. Hoping that this will improve her pain. Currently being tapered off of her Prozac with plan to start Cymbalta. She was advised that this may also improve her pain. In terms of muscle damage condition is described as stabbing, tingling, pulling, tugging, pinching, cramping, tiring, sore, hurting, aching, punishing, spreading, tight, squeezing. Pain is negatively impacting patient's enjoyment of life, normal function, ability to perform activities of daily living, sleep and walking Patient has also looking to be treated for chronic thoracic back pain. She previously underwent sterile injections at T3, T4-T7 and T8 with very short-term relief. She had trigger point injections were which were also not help. No relief with NSAIDs, kjal-fqc-rmwkpmz medications, topical medications and muscle relaxers. [facility] Medical History Difficulty urinating Empty sella turcica Polyarthralgia Raynauds phenomenon DDD (degenerative disc disease), cervical Mediastinal mass Asthma Chronic pain syndrome Costochondritis Thrombocytosis TMJ (temporomandibular joint syndrome) Numbness and tingling of left leg Tremors of nervous system Lyme disease Hypersomnia Snoring Hyperlipidemia HTN (hypertension) GERD (gastroesophageal reflux disease) Generalized headaches Back pain Arthritis Surgical History Mediastinal mass (11/08/23) History of mandibular surgery S/P cervical spinal fusion Hx of cervical spine surgery Hx of endoscopy Hx of colonoscopy History of salpingo-oophorectomy History of laparoscopy Hx of arthroscopy Hx of tubal ligation Hx of hysterectomy, total Hx of shoulder surgery Hx of knee surgery Family History Father Heart disease Cancer Prostate cancer Mother Dementia Congestive heart failure Social History Housing: House Are you a primary healthcare prof to a significant other at home: No Do you presently have visiting nurse or other home services: No Alcohol intake: current Patient Tobacco Use Status: Tobacco use Unknown Tobacco use type: Cigarette Cigarettes Per Day: 2 Years Smoked: 26 e-Cigarette/Vaping Use: Never Used Second Hand Smoke Exposure: No service: No Current occupational status: disabled Current occupational exposures/hazards: No Cognitive needs: No Hearing needs: No Vision needs: No Review of Systems Const All systems reviewed & are unremarkable except as noted in HPI and below Physical Exam Vital Signs: Last Vital Signs Pulse 77 02/25/25 10:19 Resp 16 02/25/25 10:19 BP 151/87 H 02/25/25 10:19 Pulse Ox 98 02/25/25 10:19 Oxygen Delivery Method Room Air 02/25/25 10:19 BMI result Body Mass Index 39.4 General: awake, alert, oriented. Answers questions appropriately. Fully engaged in examination. Skin: warm, dry, intact HEENT: Normocephalic. Hearing intact. Cardiac: External chest normal in appearance. Respiratory: No cough, audible wheezing or stridor. Abdomen: without gross distension. MS: No obvious swelling or deformities. Able to stand on bilateral tiptoes and bilateral heels.? Able to transition from sit to stand unassisted. Ambulates with bilaterally normal heel strike and toe off Neurological: Oriented to person, place, time and situation. Thought process intact. Antalgic gait. Psychiatric: Appropriate mood and affect. Good judgment and insight. Results Reviewed Results Reviewed: 04/10/2024 MRI OF THE THORACIC SPINE WITHOUT CONTRAST MRI OF THE LUMBAR SPINE WITHOUT CONTRAST CLINICAL INFORMATION: Chronic pain syndrome. Postlaminectomy syndrome. Bilateral lower extremity weakness and numbness feeling 6 months of conservative treatment. COMPARISON: Thoracic spine MRI September 08, 2021. TECHNIQUE: Multiplanar multisequence MR imaging of the thoracic and lumbar spine obtained without contrast. FINDINGS: THORACIC SPINE MRI: There are 12 rib bearing thoracic type vertebral bodies. Mild rightward convex sclerotic curvature of the upper thoracic spine. Thoracic alignment is otherwise maintained. There is multilevel degenerative disc disease and hypertrophic facet arthropathy throughout the thoracic spine that remains similar to the September 08, 2021 thoracic spine MRI. Small paracentral disc protrusions continue to mildly narrow the central canal at the T6-T7, T7-T8, and T8-T9 levels. There is no high-grade foraminal stenosis within the thoracic spine. There are partially imaged postoperative changes following ACDF at C6-C7. There is no thoracic cord compression and there are no thoracic cord signal changes when accounting for artifact. LUMBAR SPINE MRI: There are 5 nonrib-bearing lumbar-type vertebral bodies. S1 is lumbarized, showing rudimentary disc with S2. Grade 1 retrolisthesis of L2 on L3. There is severe disc line loss at L5-S1 and there is mild disc volume loss at the remaining lumbar levels. There is disc desiccation at all lumbar levels. There are Modic type II endplate signal changes at L5-S1. Modic type I endplate signal changes at L4-L5. No additional bone marrow edema. No acute fractures. Conus terminates at the L1-L2 level. There is bilateral perinephric stranding. L1-L2: A small shallow left paracentral disc protrusion minimally indents the ventral thecal sac without central canal stenosis. There is no foraminal stenosis. L2-L3: Grade 1 retrolisthesis. Shallow left paracentral disc protrusion minimally indents the ventral thecal sac. No foraminal stenosis. L3-L4: There is a left paracentral/left lateral disc protrusion that contacts the traversing left L4 nerve root within the left subarticular zone and results in ocey-zi-sowovzvh left-sided foraminal stenosis without exiting nerve root compression. No central canal and no right foraminal stenosis. L4-L5: There is a large right foraminal/extraforaminal disc protrusion that results in moderate to severe right-sided foraminal stenosis and mass effect on the foraminal and extra foraminal segments of the exiting right L4 nerve root. Left lateral disc osteophyte results in moderate left-sided foraminal stenosis and mass effect on the exiting left L4 nerve root at the left foraminal/extraforaminal junction. There is no central canal stenosis. L5-S1: Shallow disc protrusion minimally indents the ventral thecal sac. Disc osteophyte and advanced facet arthropathy result in moderate to severe bilateral foraminal stenosis with compression of the exiting L5 nerve roots bilaterally. IMPRESSION: * Mild to moderate thoracic spondylosis. No severe central canal stenosis and no severe foraminal stenosis within the thoracic spine. There are partially imaged postoperative changes following ACDF at C6-C7. * At L3-L4, there is a left paracentral/left lateral disc protrusion that contacts the traversing left L4 nerve root within the left subarticular zone and results in acdj-sb-uifxgrqt left-sided foraminal stenosis without exiting nerve root compression. * At L4-L5, there is a large right foraminal/extraforaminal disc protrusion that results in moderate to severe right-sided foraminal stenosis and mass effect on the foraminal and extra foraminal segments of the exiting right L4 nerve root. Left lateral disc osteophyte results in moderate left-sided foraminal stenosis and mass effect on the exiting left L4 nerve root at the left foraminal/extraforaminal junction. * At L5-S1, multifactorial degenerative changes result in moderate to severe bilateral foraminal stenosis with compression of the exiting L5 nerve roots bilaterally. * S1 shares a rudimentary disc with S2. 02/01/2024 XR/XR lumbar spine 2-3V FINDINGS: Mild dextroscoliosis of the lumbar spine. Surgical clips in the pelvis. Facet arthritis in the lower lumbar spine. Moderate multilevel lumbar spondylosis with moderate loss of disc space height at L2-L3, L3-L4, L4-L5 and marked loss of disc space at L5-S1. IMPRESSION: Moderate multilevel lumbar spondylosis. 09/08/2021 MRI Thoracic Assessment & Plan Assessment & Plan (1) Lumbar radiculopathy: Code(s): M54.16 - Radiculopathy, lumbar region Category: Medical (2) Fecal incontinence: Code(s): R15.9 - Full incontinence of feces Category: Medical (3) Muscle weakness of proximal extremity: Code(s): M62.81 - Muscle weakness (generalized) Category: Medical (4) Lumbar spondylosis: Code(s): M47.816 - Spondylosis without myelopathy or radiculopathy, lumbar region Category: Medical (5) Numbness and tingling of left leg: Code(s): R20.0 - Anesthesia of skin; R20.2 - Paresthesia of skin Category: Medical (6) Chronic pain syndrome: Code(s): G89.4 - Chronic pain syndrome Category: Medical (7) Myofascial pain syndrome of thoracic spine: Code(s): M79.18 - Myalgia, other site Category: Medical (8) Thoracic back pain: Code(s): M54.6 - Pain in thoracic spine Category: Medical (9) Post laminectomy syndrome: Code(s): M96.1 - Postlaminectomy syndrome, not elsewhere classified Category: Medical (10) Myofascial pain syndrome of thoracic spine: Code(s): M79.18 - Myalgia, other site Category: Medical (11) Thoracic back pain: Code(s): M54.6 - Pain in thoracic spine Category: Medical (12) Post laminectomy syndrome: Code(s): M96.1 - Postlaminectomy syndrome, not elsewhere classified Category: Medical Plan Lety presented back to the office today for follow-up chronic back pain Patient has exhausted greater than 6 months of conservative treatment including physical therapy, home exercise program, nonsteroidal anti-inflammatory medications, muscle relaxers and bracing without improvement of her symptoms Will schedule for fluoroscopy guided SCS trial with Nevro under sedation Continue with medication management as prescribed by PCP. All questions and concerns have been answered and patient agrees with the plan. Follow up in the office after procedure, sooner if needed Orders: Orders MR lumbar spine wo con Today G89.4 - Chronic pain syndrome, M47.816 - Spondylosis without myelopathy or radiculopathy, lumbar region, M54.16 - Radiculopathy, lumbar region, M62.81 - Muscle weakness (generalized), R15.9 - Full incontinence of feces, R20.0 - Anesthesia of skin, R20.2 - Paresthesia of skin Coding Level of Care Code Est Pt Level 3 (48589) Complex EM visit Add On G2211 Diagnoses Lumbar radiculopathy M54.16 Fecal incontinence R15.9 Muscle weakness of proximal extremity M62.81 Lumbar spondylosis M47.816 Numbness and tingling of left leg R20.0; R20.2 Chronic pain syndrome G89.4 Myofascial pain syndrome of thoracic spine M79.18 Thoracic back pain M54.6 Post laminectomy syndrome M96.1
--- OUTSIDE RECORDS SUMMARY | 2025-02-25 10:52 | XMS_ITS | Clinical Summary ---
Author Organization [employer] [facility] ity Address [address] [place] [address] Care Team Providers Care Cattle Driver Name Role Phone Amrik Mendoza MD Primary Care Provider Surgical History Surgery Date Site/Laterality Comments OTHER SURGICAL HISTORY PROCEDURE: [place] OSTEOTOMY SPINE PST/PSTLAT APPR 1 VRT SGM CRV; COMMENT: surgery X 2 OTHER SURGICAL HISTORY 1993 PROCEDURE: HISTORICAL TOTAL HYSTERECTOMY W/O BSO; COMMENT: left ovary TUBAL LIGATION PROCEDURE: HISTORICAL TUBAL LIGATION OTHER SURGICAL HISTORY 1999 PROCEDURE: [place] ARTHROSCOPY TEMPOROMANDIBULAR JOINT SURGICAL; COMMENT: left SALPINGOOPHORECTOMY 02/08/11 PROCEDURE: [place] LAPAROSCOPY W/RMVL ADNEXAL STRUCTURES; COMMENT: Serous cystadenoma [...] Recently Relevant to Health Maintenance Care Teams Cattle Driver Relationship Specialty Start Date End Date Amrik Mendoza MD [address] [place] [address] Dr Tra MA PCP - General 10/23/23
== END 2025-02-25 10:45 | disposition home or self-care (01) ==
LOC: HO.PMC 10:18
PROVIDERS: PCP Family Medicine; Visit Provider Registered Nurse Emergency
DX: M54.16 Radiculopathy, lumbar region (principal); R15.9 Full incontinence of feces; M62.81 Muscle weakness (generalized); M47.816 Spondylosis without myelopathy or radiculopathy, lumbar region; R20.0 Anesthesia of skin; R20.2 Paresthesia of skin; G89.4 Chronic pain syndrome; M79.18 Myalgia, other site; M54.6 Pain in thoracic spine; M96.1 Postlaminectomy syndrome, not elsewhere classified
CPT/HCPCS: 99213

== ENCOUNTER → 2025-03-15 09:35 | Outpatient (BNV) | payer OTHER, SELFPAY | PROVIDERS: PCP Family Medicine; Visit Provider Radiology Diagnostic Radiology | DX: M54.16 Radiculopathy, lumbar region (principal) | CPT/HCPCS: 72148 ==

== ENCOUNTER 2025-03-15 09:36 | Outpatient (REF) | payer OTHER, SELFPAY ==
--- NOTE | ~2025-03-15 | MR_ITS ---
CLINICAL HISTORY: M54.16 - Radiculopathy, lumbar region --- Additional Notes or Special Instructions: Chronic lower back pain with new fecal incontinence. MR lumbar spine without gadolinium Comparison: 04/10/2024 Findings: Conus terminates at L1/L2 level. Unremarkable visualized cord, conus medullaris and cauda equina. Multilevel disc dehydration and severe L5/S1 disc narrowing not significantly changed from prior study. Posterior annular disc fissures noted at some of the lumbar levels. New plnpzqpp-bp-srzbol Modic type 1 changes at L4/L5. Mild Modic type 1 changes at L2/L3. Modic type 2 changes at L5/S1. No acute fracture. Unremarkable paravertebral soft tissues and visualized abdomen. L5/S1: No significant change in grade 1 retrolisthesis, pseudodisc bulge, and ouwt-ap-xipgtbsz bilateral neural foraminal stenosis. L4/L5: No significant change in grade 1 retrolisthesis and predominantly right-sided disc bulge versus broad-based disc protrusion associated with ghim-gt-hkuklujb right and mild left neural foraminal stenosis. L3/L4: Grade 1 retrolisthesis and up to 5 mm (AP dimension) left subarticular/neural foraminal (inferior aspect) disc herniation associated with iqoy-vz-oranvhjc left neural foraminal and mild left subarticular recess stenosis as well as mild right neural foraminal compromise as before. L2/L3: New small left central disc herniation without significant central canal compromise. Grade 1 retrolisthesis as before. L1/L2: Nonprogressive small left central disc protrusion without significant central canal compromise as before. T12/L1: No significant central canal or neural foraminal stenosis. IMPRESSION: No evidence of progressive central canal, lateral recess, neural foraminal stenosis with mostly chronic changes as described above This document has been electronically signed by: Serena Connor MD on 03/17/2025 09:08:49
== END 2025-03-15 09:37 | disposition home or self-care (01) ==
LOC: HO.MRI 09:36
PROVIDERS: PCP Family Medicine; Visit Provider Registered Nurse Emergency
DX: M54.16 Radiculopathy, lumbar region (principal); R15.9 Full incontinence of feces; M62.81 Muscle weakness (generalized); M47.816 Spondylosis without myelopathy or radiculopathy, lumbar region; R20.0 Anesthesia of skin; R20.2 Paresthesia of skin; G89.4 Chronic pain syndrome
CPT/HCPCS: 72148

== ENCOUNTER 2025-03-26 08:44 | Day surgery (SDC) | payer OTHER, SELFPAY ==
--- OUTSIDE RECORDS SUMMARY | 2025-03-12 14:57 | XMS_ITS | Clinical Summary ---
Author Organization [facility] [employer] [facility] ity Address [address] [place] [address] Care Team Providers Care Merchandising Manager Name Role Phone Amrik Mendoza MD [...] Years (1 of 2 - PCV) 12/29/1982 Zoster [...] season) 2024 12/14/2020, 11/21/2020 Influenza Vaccine (#1) 2025 8, 06/12/2017, 05/22/2016, Additional history exists HIB [...] Recently Relevant to Health Maintenance Care Teams Merchandising Manager Relationship Specialty Start Date End Date Amrik Mendoza MD [address] [place] [address] Dr Tra MA PCP - General 10/23/23
[2025-03-24 10:02] VITALS: BMI 39.6
--- NOTE | 2025-03-25 10:00 | HO.ANESPROP2 ---
HPI - Anesthesia Eval Consult details Narrative: 59yo F for Upper Endoscopy PMFSH Active Problems Active Problems: All Active Problems Fecal incontinence (Acute) Lumbar radiculopathy (Acute) Dry mouth and eyes (Acute) Dry eyes (Acute) Muscle weakness of proximal extremity (Acute) Neoplasm of uncertain behavior of skin (Acute) Pain in right tay (Acute) Candidiasis of vagina (Acute) Oral pharyngeal candidiasis (Acute) Lumbar spondylosis (Acute) Post laminectomy syndrome (Acute) Thoracic back pain (Acute) Myofascial pain syndrome of thoracic spine (Acute) Tick bite (Acute) Smoking (Acute) BMI 37.0-37.9, adult (Acute) Sacroiliac joint dysfunction of both sides (Acute) Dysphagia (Acute) Environmental allergies (Acute) Strep throat (Acute) Obesity (BMI 30-39.9) (Acute) Personal history of tobacco use (Acute) Cough (Acute) Polyarthralgia (Acute) Costochondritis (Acute) Shortness of breath (Acute) Dizziness (Acute) Low back pain (Acute) Seasonal allergies (Acute) Sinus infection (Acute) Breast cancer screening by mammogram (Acute) Screening for colon cancer (Acute) Screening for cervical cancer (Acute) Adult general medical exam (Acute) Hyponatremia (Acute) Thrombocytosis (Acute) Chronic pain syndrome (Acute) Asthma (Acute) High platelet count (Acute) BMI 39.0-39.9,adult (Acute) Anxiety and depression (Acute) Normal physical exam (Acute) TMJ (dislocation of temporomandibular joint) (Acute) Difficulty urinating (Acute) Empty sella turcica (Acute) Numbness and tingling of left leg (Acute) Tremors of nervous system (Acute) Hypersomnia (Acute) Snoring (Acute) Hyperlipidemia (Acute) HTN (hypertension) (Acute) GERD (gastroesophageal reflux disease) (Acute) Generalized headaches (Acute) Back pain (Acute) Arthritis (Acute) Past Medical History Medical History Difficulty urinating Empty sella turcica Polyarthralgia Raynauds phenomenon DDD (degenerative disc disease), cervical Mediastinal mass Asthma Chronic pain syndrome Costochondritis Thrombocytosis TMJ (temporomandibular joint syndrome) Numbness and tingling of left leg Tremors of nervous system Lyme disease Hypersomnia Snoring Hyperlipidemia HTN (hypertension) GERD (gastroesophageal reflux disease) Generalized headaches Back pain Arthritis Family History Family History Father Heart disease Cancer Prostate cancer Mother Dementia Congestive heart failure Family history of problems with anesthesia: No Surgical History Surgical History Mediastinal mass (11/08/23) History of mandibular surgery S/P cervical spinal fusion Hx of cervical spine surgery Hx of endoscopy Hx of colonoscopy History of salpingo-oophorectomy History of laparoscopy Hx of arthroscopy Hx of tubal ligation Hx of hysterectomy, total Hx of shoulder surgery Hx of knee surgery History of Problems with Anesthesia: Yes Social History Social History Housing: House Are you a primary restorative care technician to a significant other at home: No Do you presently have visiting nurse or other home services: No Alcohol intake: current Patient Tobacco Use Status: Current everyday Tobacco user Tobacco use type: Cigarette Cigarettes Per Day: 2 Years Smoked: 26 e-Cigarette/Vaping Use: Never Used Second Hand Smoke Exposure: No service: No Current occupational status: disabled Current occupational exposures/hazards: No Cognitive needs: No Hearing needs: No Vision needs: No Meds Allergies Allergy/AdvReac Type Severity Reaction Status Date / Time Seasonal Allergies Allergy Severe Itchy Eyes Verified 02/25/25 10:23 lisinopril AdvReac Severe Cough Verified 02/25/25 10:23 pregabalin (From Lyrica) AdvReac Severe Shortness Verified 02/25/25 10:23 of Breath celecoxib (From Celebrex) AdvReac Intermediate Hypertensio Verified 02/25/25 10:23 n varenicline (From Chantix) AdvReac Intermediate Depression Verified 02/25/25 10:23 Home Medications ?Medication ?Instructions ?Recorded ?Confirmed ?Last Taken ?Type cyclosporine 0.05 % eye drops in a 1 drp ophthalmic (eye) Q12H 07/03/23 03/24/25 11/08/23 History dropperette (Restasis) omega 0-qcc-ero-fish oil 300 1 cap PO QAM 07/03/23 03/24/25 11/07/23 History mg-1,000 mg capsule (Fish Oil) propranolol 60 mg capsule,24 60 mg PO BEDTIME 08/28/23 03/24/25 11/07/23 History hr,extended release magnesium gluconate 27 mg 27 mg PO BID 10/05/23 03/24/25 11/07/23 History magnesium (500 mg) tablet (Mag-G) duloxetine 60 mg capsule,delayed 90 mg PO DAILY 01/07/25 03/24/25 Unknown History release Exam Height,Weight and Vital Signs: Height 5 ft Weight 92.079 kg Pertinent Lab Results Pertinent Lab Results: Laboratory Tests 02/11/25 09:55 WBC 8.9 Hgb 13.4 Hct 41.8 Plt Count 565 H D Sodium 138 Potassium 4.0 Chloride 107 Carbon Dioxide 24 BUN 11 Creatinine 0.73 Narrative Narrative: EKG 2023 Vent. Rate : 079 BPM Atrial Rate : 079 BPM P-R Int : 166 ms QRS Dur : 092 ms QT Int : 366 ms P-R-T Axes : 028 003 033 degrees QTc Int : 419 ms Normal sinus rhythm Normal ECG When compared with ECG of 20-MAR-2024 13:36, No significant change was found Assessment and Plan Assessment Anesthesia Assessment: Chart Reviewed Final Anesthetic Review Family History of Problems with Anesthesia: No History of Problems with Anesthesia: Yes
[2025-03-26 09:31] VITALS: BP 153/87; PULSE 79; RESP 16; TEMP 37.1; O2SAT 97
[2025-03-26] MEDS: Lactated Ringers 1,000 ML 100 ML IVCONT (09:32)
--- NOTE | 2025-03-26 10:14 | HO.ANESPROP2 ---
[facility] Active Problems Active Problems: All Active Problems (Updated 02/25/25 @ 10:55 by Peggy Berkowitz, MUNIRA, [employer]) Fecal incontinence (Acute) Lumbar radiculopathy (Acute) Dry mouth and eyes (Acute) Dry eyes (Acute) Muscle weakness of proximal extremity (Acute) Neoplasm of uncertain behavior of skin (Acute) Pain in right tay (Acute) Candidiasis of vagina (Acute) Oral pharyngeal candidiasis (Acute) Lumbar spondylosis (Acute) Post laminectomy syndrome (Acute) Thoracic back pain (Acute) Myofascial pain syndrome of thoracic spine (Acute) Tick bite (Acute) Smoking (Acute) BMI 37.0-37.9, adult (Acute) Sacroiliac joint dysfunction of both sides (Acute) Dysphagia (Acute) Environmental allergies (Acute) Strep throat (Acute) Obesity (BMI 30-39.9) (Acute) Personal history of tobacco use (Acute) Cough (Acute) Polyarthralgia (Acute) Costochondritis (Acute) Shortness of breath (Acute) Dizziness (Acute) Low back pain (Acute) Seasonal allergies (Acute) Sinus infection (Acute) Breast cancer screening by mammogram (Acute) Screening for colon cancer (Acute) Screening for cervical cancer (Acute) Adult general medical exam (Acute) Hyponatremia (Acute) Thrombocytosis (Acute) Chronic pain syndrome (Acute) Asthma (Acute) High platelet count (Acute) BMI 39.0-39.9,adult (Acute) Anxiety and depression (Acute) Normal physical exam (Acute) TMJ (dislocation of temporomandibular joint) (Acute) Difficulty urinating (Acute) Empty sella turcica (Acute) Numbness and tingling of left leg (Acute) Tremors of nervous system (Acute) Hypersomnia (Acute) Snoring (Acute) Hyperlipidemia (Acute) HTN (hypertension) (Acute) GERD (gastroesophageal reflux disease) (Acute) Generalized headaches (Acute) Back pain (Acute) Arthritis (Acute) Past Medical History Medical History Difficulty urinating Empty sella turcica Polyarthralgia Raynauds phenomenon DDD (degenerative disc disease), cervical Mediastinal mass Asthma Chronic pain syndrome Costochondritis Thrombocytosis TMJ (temporomandibular joint syndrome) Numbness and tingling of left leg Tremors of nervous system Lyme disease Hypersomnia Snoring Hyperlipidemia HTN (hypertension) GERD (gastroesophageal reflux disease) Generalized headaches Back pain Arthritis Functional capacity: independent ambulation Patient : No Family History Family History Father Heart disease Cancer Prostate cancer Mother Dementia Congestive heart failure Family history of problems with anesthesia: No Surgical History Surgical History Mediastinal mass (11/08/23) History of mandibular surgery S/P cervical spinal fusion Hx of cervical spine surgery Hx of endoscopy Hx of colonoscopy History of salpingo-oophorectomy History of laparoscopy Hx of arthroscopy Hx of tubal ligation Hx of hysterectomy, total Hx of shoulder surgery Hx of knee surgery History of Problems with Anesthesia: Yes Social History Social History Housing: House Are you a primary career development specialist to a significant other at home: No Do you presently have visiting nurse or other home services: No Alcohol intake: current Patient Tobacco Use Status: Current everyday Tobacco user Tobacco use type: Cigarette Cigarettes Per Day: 2 Years Smoked: 26 e-Cigarette/Vaping Use: Never Used Second Hand Smoke Exposure: No Use of substances other than those prescribed or required for medical reasons: No Advance Directives: No Advance Directives Information Provided: Yes service: No Current occupational status: disabled Current occupational exposures/hazards: No Cognitive needs: No Hearing needs: No Vision needs: No Meds Allergies Allergy/AdvReac Type Severity Reaction Status Date / Time Seasonal Allergies Allergy Severe Itchy Eyes Verified 02/25/25 10:23 lisinopril AdvReac Severe Cough Verified 02/25/25 10:23 pregabalin (From Lyrica) AdvReac Severe Shortness Verified 02/25/25 10:23 of Breath celecoxib (From Celebrex) AdvReac Intermediate Hypertensio Verified 02/25/25 10:23 n varenicline (From Chantix) AdvReac Intermediate Depression Verified 02/25/25 10:23 Active Medications: Current Medications Albuterol Sulfate (Albuterol Sulfate (0.083%) 2.5 Mg/3 Ml Vial.Neb) 2.5 mg INHALE ONCE PRN PRN Reason: Shortness of Breath/Wheezing Lactated Ringer's (Lr) 1,000 mls @ 100 mls/hr IVCONT .Q10H JESUS Last Admin: 03/26/25 09:32 Dose: 100 mls/hr Home Medications ?Medication ?Instructions ?Recorded ?Confirmed ?Last Taken ?Type cyclosporine 0.05 % eye drops in a 1 drp ophthalmic (eye) Q12H 07/03/23 03/24/25 11/08/23 History dropperette (Restasis) omega 3-fyw-bif-fish oil 300 1 cap PO QAM 07/03/23 03/24/25 11/07/23 History mg-1,000 mg capsule (Fish Oil) propranolol 60 mg capsule,24 60 mg PO BEDTIME 08/28/23 03/24/25 11/07/23 History hr,extended release magnesium gluconate 27 mg 27 mg PO BID 10/05/23 03/24/25 11/07/23 History magnesium (500 mg) tablet (Mag-G) duloxetine 60 mg capsule,delayed 90 mg PO DAILY 01/07/25 03/24/25 Unknown History release Exam Height,Weight and Vital Signs: Height 5 ft Weight 92.079 kg Last Vital Signs Temp 98.7 F 03/26/25 09:31 Pulse 79 03/26/25 09:31 Resp 16 03/26/25 09:31 BP 153/87 H 03/26/25 09:31 Pulse Ox 97 03/26/25 09:31 O2 Del Method Room Air 03/26/25 09:31 Assessment and Plan Assessment Anesthesia Assessment: Anesthesia Plan Discussed and Chart Reviewed Final Anesthetic Review Family History of Problems with Anesthesia: No History of Problems with Anesthesia: Yes NPO: Yes ASA Class: III Final Preanesthetic Review: Meds/Allgs Chart Reviewed, Consent Obtained/Reviewed and Anes Risks/Benef Reviewed Patient Risk: Intermediate Procedure Risk: Low Anesthetic Plan Anesthetic Plan: MAC: Disposition: Standard PACU
--- NOTE | 2025-03-26 10:43 | MHC.SHP ---
Pre-Procedural Eval Section A - 24 Hr Update-Section A only Date of Service: 03/26/25 Section B - Complete if H&P > 30 days Chief Complaint: Dysphagia, unspecified Details of Present Illness: Difficulty urinating Empty sella turcica Polyarthralgia Raynauds phenomenon DDD (degenerative disc disease), cervical Mediastinal mass Asthma Chronic pain syndrome Costochondritis Thrombocytosis TMJ (temporomandibular joint syndrome) Numbness and tingling of left leg Tremors of nervous system Lyme disease Hypersomnia Snoring Hyperlipidemia HTN (hypertension) GERD (gastroesophageal reflux disease) Generalized headaches Back pain Arthritis Surgical History Mediastinal mass (11/08/23) History of mandibular surgery S/P cervical spinal fusion Hx of cervical spine surgery Hx of endoscopy Hx of colonoscopy History of salpingo-oophorectomy History of laparoscopy Hx of arthroscopy Hx of tubal ligation Hx of hysterectomy, total Hx of shoulder surgery Hx of knee surgery Present Medications: see Short Stay Collaborative assessment Allergies: Allergies Allergy/AdvReac Type Severity Reaction Status Date / Time Seasonal Allergies Allergy Severe Itchy Eyes Verified 02/25/25 10:23 lisinopril AdvReac Severe Cough Verified 02/25/25 10:23 pregabalin (From Lyrica) AdvReac Severe Shortness Verified 02/25/25 10:23 of Breath celecoxib (From Celebrex) AdvReac Intermediate Hypertensio Verified 02/25/25 10:23 n varenicline (From Chantix) AdvReac Intermediate Depression Verified 02/25/25 10:23 Review of Systems Review of Systems Comment: Ten point ROS negative Exam Exam Comment: Gen appear: No acute distress HEENT: no icterus Chest: No overt resp distress Abd: soft, nontender, nondistended Psych: Stable affect, answering questions appropriately Neuro: A/Ox3 noted to move all extremities spontaneously Ext: no peripheral edema Plan Diagnosis/Plan: Unchanged I have reviewed the history and physical and performed a pertinent physical examination on my patient. No changes have occurred unless specified. Time Spent With Patient Time: Total time managing care of this patient today ____ minutes.
[2025-03-26 11:28] VITALS: BP 144/90; RESP 16; TEMP 36.8; O2SAT 95
[2025-03-26 11:30] VITALS: BP 152/90; RESP 16; O2SAT 95
--- NOTE | 2025-03-26 11:30 | P.OP_ITS ---
Operative Note Operative Note Date of Service: 03/26/25 Narrative: Procedure: Esophagogastroduodenoscopy Endoscopist: Christa Montanez MD Indication: Dysphagia Anesthesia Provider: Dr Rachel Chaney Anesthesia Type: MAC ?? EGD Procedure:?? The procedure, indications, preparation and potential complications were reviewed with the patient, who indicated understanding and gave written informed consent to proceed. A physical exam was performed. The endoscope was introduced through the mouth, and advanced to the second part of duodenum. The mucosa was carefully examined on slow withdrawal of the endoscope. The patient tolerated the procedure well. There were no immediate complications.? ? EGD Findings:? * Esophagus:? Normal mucosa noted in the entire esophagus. The Z line was at 38 cm. Middle and lower esophagus forceps biopsies were obtained to rule out eosinophilic esophagitis. * Stomach:? Erythema was noted along the greater curvature in the body of the stomach, however the lesser curvature appeared pale and atrophic. Retroflexion was performed in the cardia. Numerous polyps were noted in the body of the stomach. Cold forceps biopsies were taken from the gastric antrum and body. Cold forceps polypectomy were also performed for a few polyps for histology. * Duodenum:? Normal mucosa was noted in the whole of the examined duodenum. Additional intervention: Soft tip Savary wire was introduced through the biopsy channel of the gastroscope and advanced to the antrum. ?The gastroscope was then backed out. ?Savary Mariam bougie was advanced over the guidewire and the esophagus was dilated to 19 mm without any resistance felt. ?On relook, no heme or tear was noted. ? EGD Impressions:? * R/o issac esophagus (biopsy) * Gastritis (biopsy) * Gastric polyps (polypectomy) * Normal duodenum (biopsy) ?? Recommendations:?? * Follow biopsy results. Our office will call or send a letter with results within 7-10 days. * Will likely need fluconazole 400 mg x 14 days if Isasc esophagitis confirmed on histology * Continue PPI therapy. * If H pylori +, patient will be prescribed eradication therapy followed by test of cure. * Avoid NSAIDs. * No obvious narrowing of noted on endoscopic evaluation today. If patient continues to have dysphagia despite adequate treatment of Issac esophagitis, will benefit from HREM for further evaluation and to r/o EGJOO. Above has been reviewed with the patient.
[2025-03-26 11:45] VITALS: BP 140/86; RESP 16; TEMP 36.7; O2SAT 96
--- NOTE | 2025-03-26 12:30 | HO.POSTANES ---
Post Anesthesia Evaluation Post Anesthesia Evaluation Date of Service: 03/26/25 Vital Signs: Vital Signs Temp Pulse Resp BP Pulse Ox O2 Del Method 03/26/25 11:45 98.0 F 16 140/86 H 96 Room Air 03/26/25 11:30 16 152/90 H 95 Room Air 03/26/25 11:28 98.3 F 16 144/90 H 95 Room Air 03/26/25 09:31 98.7 F 79 16 153/87 H 97 Room Air Anesthesia: Monitored Mental Status: Awake Pain Control: Satisfactory Nausea/Vomiting: None Hydration: Adequate Anesthesia-Related Issues: No Anes. Related Issues
== END 2025-03-26 12:17 | disposition home or self-care (01) ==
PROVIDERS: PCP Family Medicine; Visit Provider Internal Medicine
PROC: 0DJ08ZZ Inspection of Upper Intestinal Tract, Via Natural or Artificial Opening Endoscopic (ICD-10-PCS; CPT 43235; principal; 2025-03-26 11:30)
DX: R13.10 Dysphagia, unspecified (principal); B37.81 Candidal esophagitis; K29.50 Unspecified chronic gastritis without bleeding; K31.7 Polyp of stomach and duodenum; K21.9 Gastro-esophageal reflux disease without esophagitis; I10 Essential (primary) hypertension; E78.5 Hyperlipidemia, unspecified; J45.40 Moderate persistent asthma, uncomplicated; M26.609 Unspecified temporomandibular joint disorder, unspecified side; A69.20 Lyme disease, unspecified; M25.50 Pain in unspecified joint; F17.210 Nicotine dependence, cigarettes, uncomplicated; Z79.899 Other long term (current) drug therapy; Z88.8 Allergy status to other drugs, medicaments and biological substances; Z98.890 Other specified postprocedural states
CPT/HCPCS: 43248; 43239; 88305; 88312; 88313; 88342; C1769; J2003; J2704

== ENCOUNTER → 2025-03-26 08:44 | Outpatient (BNV) | payer OTHER, SELFPAY | PROVIDERS: PCP Family Medicine; Visit Provider Internal Medicine | DX: R13.10 Dysphagia, unspecified (principal); K25.9 Gastric ulcer, unspecified as acute or chronic, without hemorrhage or perforation; K31.7 Polyp of stomach and duodenum | CPT/HCPCS: 43239 ==

== ENCOUNTER 2025-04-10 08:47 | Outpatient (AMB) | payer OTHER, SELFPAY ==
--- NOTE | 2025-04-10 08:58 | MHC.OFFVIS ---
Vital Signs 04/10/25 09:02 Height 5 ft Weight 202 lb BMI 39.4 BP 142/86 H Blood Pressure Location Rt brachial Position Sitting Respiration 16 Pulse 81 Pulse Source Pulse Oximeter Pulse Oximetry (%) 97 Oxygen Delivery Method Room Air Intake Visit Reasons: Lumbar Spine MRI Review/SCS Proc Discussion Hand Upper And Bottom Lacer Required: No Accompanied by: Life Partner Allergies Seasonal Allergies Allergy (Severe, Verified 04/10/25 09:04) Itchy Eyes lisinopril Adverse Reaction (Severe, Verified 04/10/25 09:04) Cough pregabalin (From Lyrica) Adverse Reaction (Severe, Verified 04/10/25 09:04) Shortness of Breath celecoxib (From Celebrex) Adverse Reaction (Intermediate, Verified 04/10/25 09:04) Hypertension varenicline (From Chantix) Adverse Reaction (Intermediate, Verified 04/10/25 09:04) Depression HPI Comments Details: The patient is a 59-year-old female presenting with chronic pain management related to degenerative disc disease who presents to the office today for review of recent MRI and questioned about upcoming spinal cord stimulator trial procedure. The patient's MRI shows age-related degenerative changes, which are slightly worse compared to previous imaging, but there is no evidence of worsening central canal stenosis, lateral recess stenosis, or foraminal stenosis. These findings are consistent with chronic degenerative changes. Results as per below. The patient is scheduled for a trial of a spinal cord stimulator to manage her chronic pain. The patient is informed about the need to avoid twisting, bending, and lifting post-procedure to ensure proper lead placement and healing. [facility] Medical History Difficulty urinating Empty sella turcica Polyarthralgia Raynauds phenomenon DDD (degenerative disc disease), cervical Mediastinal mass Asthma Chronic pain syndrome Costochondritis Thrombocytosis TMJ (temporomandibular joint syndrome) Numbness and tingling of left leg Tremors of nervous system Lyme disease Hypersomnia Snoring Hyperlipidemia HTN (hypertension) GERD (gastroesophageal reflux disease) Generalized headaches Back pain Arthritis Surgical History Mediastinal mass (11/08/23) History of mandibular surgery S/P cervical spinal fusion Hx of cervical spine surgery Hx of endoscopy Hx of colonoscopy History of salpingo-oophorectomy History of laparoscopy Hx of arthroscopy Hx of tubal ligation Hx of hysterectomy, total Hx of shoulder surgery Hx of knee surgery Family History Father Heart disease Cancer Prostate cancer Mother Dementia Congestive heart failure Social History Housing: House Are you a primary workforce investment act career manager to a significant other at home: No Do you presently have visiting nurse or other home services: No Alcohol intake: current Patient Tobacco Use Status: Current everyday Tobacco user Tobacco use type: Cigarette Cigarettes Per Day: 2 Years Smoked: 26 e-Cigarette/Vaping Use: Never Used Second Hand Smoke Exposure: No service: No Current occupational status: disabled Current occupational exposures/hazards: No Cognitive needs: No Hearing needs: No Vision needs: No Review of Systems Const All systems reviewed & are unremarkable except as noted in HPI and below Physical Exam Exam Exam: General: awake, alert, oriented. Answers questions appropriately. Fully engaged in examination. Skin: warm, dry, intact HEENT: Normocephalic. Hearing intact. Cardiac: External chest normal in appearance. Respiratory: No cough, audible wheezing or stridor. Abdomen: without gross distension. MS: No obvious swelling or deformities. Able to transition from sit to stand unassisted. Ambulates with bilaterally normal heel strike and toe off Neurological: Oriented to person, place, time and situation. Thought process intact. Antalgic gait. Psychiatric: Appropriate mood and affect. Good judgment and insight. Vital Signs: Last Vital Signs Pulse 81 04/10/25 09:02 Resp 16 04/10/25 09:02 BP 142/86 H 04/10/25 09:02 Pulse Ox 97 04/10/25 09:02 Oxygen Delivery Method Room Air 04/10/25 09:02 BMI result Body Mass Index 39.4 Results Reviewed Results Reviewed: 03/17/25 MRI lumbar spine Findings: Conus terminates at L1/L2 level. Unremarkable visualized cord, conus medullaris and cauda equina. Multilevel disc dehydration and severe L5/S1 disc narrowing not significantly changed from prior study. Posterior annular disc fissures noted at some of the lumbar levels. New tzvtylqh-eh-[id number] Modic type 1 changes at L4/L5. Mild Modic type 1 changes at L2/L3. Modic type 2 changes at L5/S1. No acute fracture. Unremarkable paravertebral soft tissues and visualized abdomen. L5/S1: No significant change in grade 1 retrolisthesis, pseudodisc bulge, and [id number]-[id number] bilateral neural foraminal stenosis. L4/L5: No significant change in grade 1 retrolisthesis and predominantly right-sided disc bulge versus broad-based disc protrusion associated with qxro-ft-pcrwlypb right and mild left neural foraminal stenosis. L3/L4: Grade 1 retrolisthesis and up to 5 mm (AP dimension) left subarticular/neural foraminal (inferior aspect) disc herniation associated with [id number]-fg-cajeufjr left neural foraminal and mild left subarticular recess stenosis as well as mild right neural foraminal compromise as before. L2/L3: New small left central disc herniation without significant central canal compromise. Grade 1 retrolisthesis as before. L1/L2: Nonprogressive small left central disc protrusion without significant central canal compromise as before. T12/L1: No significant central canal or neural foraminal stenosis. IMPRESSION: No evidence of progressive central canal, lateral recess, neural foraminal stenosis with mostly chronic changes as described above 04/10/2024 MRI OF THE THORACIC SPINE WITHOUT CONTRAST MRI OF THE LUMBAR SPINE WITHOUT CONTRAST CLINICAL INFORMATION: Chronic pain syndrome. Postlaminectomy syndrome. Bilateral lower extremity weakness and numbness feeling 6 months of conservative treatment. COMPARISON: Thoracic spine MRI September 08, 2021. TECHNIQUE: Multiplanar multisequence MR imaging of the thoracic and lumbar spine obtained without contrast. FINDINGS: THORACIC SPINE MRI: There are 12 rib bearing thoracic type vertebral bodies. Mild rightward convex sclerotic curvature of the upper thoracic spine. Thoracic alignment is otherwise maintained. There is multilevel degenerative disc disease and hypertrophic facet arthropathy throughout the thoracic spine that remains similar to the September 08, 2021 thoracic spine MRI. Small paracentral disc protrusions continue to mildly narrow the central canal at the T6-T7, T7-T8, and T8-T9 levels. There is no high-grade foraminal stenosis within the thoracic spine. There are partially imaged postoperative changes following ACDF at C6-C7. There is no thoracic cord compression and there are no thoracic cord signal changes when accounting for artifact. LUMBAR SPINE MRI: There are 5 nonrib-bearing lumbar-type vertebral bodies. S1 is lumbarized, showing rudimentary disc with S2. Grade 1 retrolisthesis of L2 on L3. There is severe disc line loss at L5-S1 and there is mild disc volume loss at the remaining lumbar levels. There is disc desiccation at all lumbar levels. There are Modic type II endplate signal changes at L5-S1. Modic type I endplate signal changes at L4-L5. No additional bone marrow edema. No acute fractures. Conus terminates at the L1-L2 level. There is bilateral perinephric stranding. L1-L2: A small shallow left paracentral disc protrusion minimally indents the ventral thecal sac without central canal stenosis. There is no foraminal stenosis. L2-L3: Grade 1 retrolisthesis. Shallow left paracentral disc protrusion minimally indents the ventral thecal sac. No foraminal stenosis. L3-L4: There is a left paracentral/left lateral disc protrusion that contacts the traversing left L4 nerve root within the left subarticular zone and results in vudb-cg-vgepcgsb left-sided foraminal stenosis without exiting nerve root compression. No central canal and no right foraminal stenosis. L4-L5: There is a large right foraminal/extraforaminal disc protrusion that results in moderate to severe right-sided foraminal stenosis and mass effect on the foraminal and extra foraminal segments of the exiting right L4 nerve root. Left lateral disc osteophyte results in moderate left-sided foraminal stenosis and mass effect on the exiting left L4 nerve root at the left foraminal/extraforaminal junction. There is no central canal stenosis. L5-S1: Shallow disc protrusion minimally indents the ventral thecal sac. Disc osteophyte and advanced facet arthropathy result in moderate to severe bilateral foraminal stenosis with compression of the exiting L5 nerve roots bilaterally. IMPRESSION: * Mild to moderate thoracic spondylosis. No severe central canal stenosis and no severe foraminal stenosis within the thoracic spine. There are partially imaged postoperative changes following ACDF at C6-C7. * At L3-L4, there is a left paracentral/left lateral disc protrusion that contacts the traversing left L4 nerve root within the left subarticular zone and results in iysk-xn-qpaxeril left-sided foraminal stenosis without exiting nerve root compression. * At L4-L5, there is a large right foraminal/extraforaminal disc protrusion that results in moderate to severe right-sided foraminal stenosis and mass effect on the foraminal and extra foraminal segments of the exiting right L4 nerve root. Left lateral disc osteophyte results in moderate left-sided foraminal stenosis and mass effect on the exiting left L4 nerve root at the left foraminal/extraforaminal junction. * At L5-S1, multifactorial degenerative changes result in moderate to severe bilateral foraminal stenosis with compression of the exiting L5 nerve roots bilaterally. * S1 shares a rudimentary disc with S2. 02/01/2024 XR/XR lumbar spine 2-3V FINDINGS: Mild dextroscoliosis of the lumbar spine. Surgical clips in the pelvis. Facet arthritis in the lower lumbar spine. Moderate multilevel lumbar spondylosis with moderate loss of disc space height at L2-L3, L3-L4, L4-L5 and marked loss of disc space at L5-S1. IMPRESSION: Moderate multilevel lumbar spondylosis. 09/08/2021 MRI Thoracic Assessment & Plan Assessment & Plan (1) Lumbar radiculopathy: Code(s): M54.16 - Radiculopathy, lumbar region Category: Medical (2) Muscle weakness of proximal extremity: Code(s): M62.81 - Muscle weakness (generalized) Category: Medical (3) Lumbar spondylosis: Code(s): M47.816 - Spondylosis without myelopathy or radiculopathy, lumbar region Category: Medical (4) Numbness and tingling of left leg: Code(s): R20.0 - Anesthesia of skin; R20.2 - Paresthesia of skin Category: Medical (5) Chronic pain syndrome: Code(s): G89.4 - Chronic pain syndrome Category: Medical (6) Post laminectomy syndrome: Code(s): M96.1 - Postlaminectomy syndrome, not elsewhere classified Category: Medical Plan The plan involves proceeding with the spinal cord stimulator trial to assess its efficacy in managing the patient's chronic pain. The patient is advised to avoid twisting, bending, and lifting post-procedure to ensure proper lead placement and healing. Following the trial, if significant pain relief is achieved, a permanent implantation will be considered, pending insurance approval. The patient is informed about the potential for increased pain between the trial and permanent implantation due to the temporary removal of the device. The patient is also advised to maintain communication with the loan servicing representative from the device company for ongoing support and guidance. I discussed with the patient the findings of her MRI, which show age-related degenerative changes without worsening stenosis. We reviewed the process and expectations for the spinal cord stimulator trial, including the procedure details and post-procedure care. The patient was informed about the potential for increased pain between the trial and permanent implantation and the need for insurance approval for the permanent device. Patient was informed and verbally consented to the use of an ambient scribe for clinic note documentation during this visit. Patient Instructions: - Avoid twisting, bending, and lifting after the procedure. - Keep in contact with the device company loan servicing representative for support. - Monitor for any increase in pain and report to the clinic if necessary. Coding Level of Care Code Est Pt Level 3 (85159) Complex EM visit Add On G2211 Diagnoses Lumbar radiculopathy M54.16 Muscle weakness of proximal extremity M62.81 Lumbar spondylosis M47.816 Numbness and tingling of left leg R20.0; R20.2 Chronic pain syndrome G89.4 Post laminectomy syndrome M96.1
[2025-04-10 09:02] VITALS: BP 142/86; PULSE 81; RESP 16; O2SAT 97; BMI 39.4
--- OUTSIDE RECORDS SUMMARY | 2025-04-10 09:05 | XMS_ITS | Clinical Summary ---
Author Organization [employer] [facility] ity Address [address] [place] [address] Care Team Providers Care Cascara Bark Cutter Name Role Phone Amrik Mendoza MD Primary Care Provider Surgical History Surgery Date Site/Laterality Comments OTHER SURGICAL HISTORY PROCEDURE: VT OSTEOTOMY SPINE PST/PSTLAT APPR 1 VRT SGM CRV; COMMENT: surgery X 2 OTHER SURGICAL HISTORY 1993 PROCEDURE: HISTORICAL TOTAL HYSTERECTOMY W/O BSO; COMMENT: left ovary TUBAL LIGATION PROCEDURE: HISTORICAL TUBAL LIGATION OTHER SURGICAL HISTORY 1999 PROCEDURE: VT ARTHROSCOPY TEMPOROMANDIBULAR JOINT SURGICAL; COMMENT: left SALPINGOOPHORECTOMY 02/08/11 PROCEDURE: VT LAPAROSCOPY W/RMVL ADNEXAL STRUCTURES; COMMENT: Serous cystadenoma [...] Recently Relevant to Health Maintenance Care Teams Cascara Bark Cutter Relationship Specialty Start Date End Date Amrik Mendoza MD [address] [place] [address] Dr Tra MA PCP - General 10/23/23
== END 2025-04-10 09:30 | disposition home or self-care (01) ==
PROVIDERS: PCP Family Medicine; Visit Provider Registered Nurse Emergency
DX: M54.16 Radiculopathy, lumbar region (principal); M62.81 Muscle weakness (generalized); M47.816 Spondylosis without myelopathy or radiculopathy, lumbar region; R20.0 Anesthesia of skin; R20.2 Paresthesia of skin; G89.4 Chronic pain syndrome; M96.1 Postlaminectomy syndrome, not elsewhere classified
CPT/HCPCS: 99213

== ENCOUNTER 2025-04-24 07:35 | Day surgery (SDC) | payer OTHER, SELFPAY ==
--- OUTSIDE RECORDS SUMMARY | 2025-04-03 14:22 | XMS_ITS | Clinical Summary ---
Author Organization [employer] [facility] ity Address [address] [place] [address] Care Team Providers Care Tube Heater Name Role Phone Amrik Mendoza MD Primary [...] Panel) 07/30/2022 Colorectal Cancer Screening: Colonoscopy 07/30/2022 HIV Screening 07/30/2022 Hepatitis C Screening 07/30/2022 Social Influencers of Health Screening 07/30/2022 Hypertension/CHF/CAD Annual BMP Blood Test 08/06/2022 DTaP,Tdap,and Td Vaccines (3 - Td or Tdap) 10/16/2022 10/16/2012, 11/15/2001 RSV Immunization Adult Patients (1 - Risk 60-74 years 1-dose series) 2023 COVID-19 Vaccine (3 - 2023- season) 2024 12/14/2020, 11/21/2020 Depression Screening 08/27/2024 Influenza Vaccine (#1) 2025 8, 06/12/2017, 05/22/2016, [...] Recently Relevant to Health Maintenance Care Teams Tube Heater Relationship Specialty Start Date End Date Amrik Mendoza MD [address] [place] [id number] Dr Tra MA PCP - General 10/23/23
[2025-04-21 15:15] VITALS: BMI 39.4
[2025-04-21 15:35] VITALS: BMI 39.1
--- NOTE | 2025-04-23 08:30 | HO.ANESPROP2 ---
Documented by User: Yuliana Thomson NP 04/23/25 08:31 HPI - Anesthesia Eval Consult details Narrative: 59yo F for ?Spinal Cord Stimulation Trial s/p EGD 02/2025 with MAC PMF Active Problems Active Problems: All Active Problems Fecal incontinence (Acute) Lumbar radiculopathy (Acute) Dry mouth and eyes (Acute) Dry eyes (Acute) Muscle weakness of proximal extremity (Acute) Neoplasm of uncertain behavior of skin (Acute) Pain in right tay (Acute) Candidiasis of vagina (Acute) Oral pharyngeal candidiasis (Acute) Lumbar spondylosis (Acute) Post laminectomy syndrome (Acute) Thoracic back pain (Acute) Myofascial pain syndrome of thoracic spine (Acute) Tick bite (Acute) Smoking (Acute) BMI 37.0-37.9, adult (Acute) Sacroiliac joint dysfunction of both sides (Acute) Dysphagia (Acute) Environmental allergies (Acute) Strep throat (Acute) Obesity (BMI 30-39.9) (Acute) Personal history of tobacco use (Acute) Cough (Acute) Polyarthralgia (Acute) Costochondritis (Acute) Shortness of breath (Acute) Dizziness (Acute) Low back pain (Acute) Seasonal allergies (Acute) Sinus infection (Acute) Breast cancer screening by mammogram (Acute) Screening for colon cancer (Acute) Screening for cervical cancer (Acute) Adult general medical exam (Acute) Hyponatremia (Acute) Thrombocytosis (Acute) Chronic pain syndrome (Acute) Asthma (Acute) High platelet count (Acute) BMI 39.0-39.9,adult (Acute) Anxiety and depression (Acute) Normal physical exam (Acute) TMJ (dislocation of temporomandibular joint) (Acute) Difficulty urinating (Acute) Empty sella turcica (Acute) Numbness and tingling of left leg (Acute) Tremors of nervous system (Acute) Hypersomnia (Acute) Snoring (Acute) Hyperlipidemia (Acute) HTN (hypertension) (Acute) GERD (gastroesophageal reflux disease) (Acute) Generalized headaches (Acute) Back pain (Acute) Arthritis (Acute) Past Medical History Medical History Difficulty urinating Empty sella turcica Polyarthralgia Raynauds phenomenon DDD (degenerative disc disease), cervical Mediastinal mass Asthma Chronic pain syndrome Costochondritis Thrombocytosis TMJ (temporomandibular joint syndrome) Numbness and tingling of left leg Tremors of nervous system Lyme disease Hypersomnia Snoring Hyperlipidemia HTN (hypertension) GERD (gastroesophageal reflux disease) Generalized headaches Back pain Arthritis Family History Family History Father Heart disease Cancer Prostate cancer Mother Dementia Congestive heart failure Family history of problems with anesthesia: No Surgical History Surgical History History of esophagogastroduodenoscopy (EGD) (03/26/25) Mediastinal mass (11/08/23) History of mandibular surgery S/P cervical spinal fusion Hx of cervical spine surgery Hx of endoscopy Hx of colonoscopy History of salpingo-oophorectomy History of laparoscopy Hx of arthroscopy Hx of tubal ligation Hx of hysterectomy, total Hx of shoulder surgery Hx of knee surgery History of Problems with Anesthesia: Yes Social History Social History (Updated 04/21/25 @ 15:37 by Ana Lilia Carrillo RN) Household Members: Spouse Housing: House Are you a primary farm or ranch animal caretaker to a significant other at home: No Do you presently have visiting nurse or other home services: No Alcohol intake: current Patient Tobacco Use Status: Current everyday Tobacco user Tobacco use type: Cigarette Cigarettes Per Day: 2 Years Smoked: 26 e-Cigarette/Vaping Use: Never Used Second Hand Smoke Exposure: No Use of substances other than those prescribed or required for medical reasons: No Have you been hit, kicked, punched, or otherwise hurt by someone within the past year? If so, by whom?: No Are you DNR?: No Advance Directives: No Advance Directives Information Provided: Yes Advance Directives on File: No Poor oral hygiene: No service: No Current occupational status: disabled Current occupational exposures/hazards: No Cognitive needs: No Hearing needs: No Vision needs: No Meds Allergies Allergy/AdvReac Type Severity Reaction Status Date / Time Seasonal Allergies Allergy Severe Itchy Eyes Verified 04/24/25 08:01 lisinopril AdvReac Severe Cough Verified 04/24/25 08:01 pregabalin (From Lyrica) AdvReac Severe Shortness Verified 04/24/25 08:01 of Breath celecoxib (From Celebrex) AdvReac Intermediate Hypertensio Verified 04/24/25 08:01 n varenicline (From Chantix) AdvReac Intermediate Depression Verified 04/24/25 08:01 Home Medications ?Medication ?Instructions ?Recorded ?Confirmed ?Last Taken ?Type cyclosporine 0.05 % eye drops in a 1 drp ophthalmic (eye) Q12H 07/03/23 04/24/25 11/08/23 History dropperette (Restasis) propranolol 60 mg capsule,24 60 mg PO BEDTIME 08/28/23 04/24/25 11/07/23 History hr,extended release magnesium gluconate 27 mg 27 mg PO BID 10/05/23 04/24/25 11/07/23 History magnesium (500 mg) tablet (Mag-G) duloxetine 60 mg capsule,delayed 120 mg PO DAILY 01/07/25 04/24/25 Unknown History release cyclobenzaprine 10 mg tablet 10 mg PO TID PRN Muscle Spasm 04/21/25 04/24/25 Unknown History Exam Height,Weight and Vital Signs: Height 5 ft Weight 90.718 kg Pertinent Lab Results Pertinent Lab Results: Laboratory Tests 02/11/25 09:55 WBC 8.9 Hgb 13.4 Hct 41.8 Plt Count 565 H D Sodium 138 Potassium 4.0 Chloride 107 Carbon Dioxide 24 BUN 11 Creatinine 0.73 Narrative Narrative: EKG 2023 Vent. Rate : 079 BPM Atrial Rate : 079 BPM P-R Int : 166 ms QRS Dur : 092 ms QT Int : 366 ms P-R-T Axes : 028 003 033 degrees QTc Int : 419 ms Normal sinus rhythm Normal ECG When compared with ECG of 20-MAR-2024 13:36, No significant change was found Assessment and Plan Assessment Anesthesia Assessment: Chart Reviewed Final Anesthetic Review Family History of Problems with Anesthesia: No History of Problems with Anesthesia: Yes Documented by User: Naz Acosta MD 04/24/25 10:42 [facility] Past Medical History Medical History Difficulty urinating Empty sella turcica Polyarthralgia Raynauds phenomenon DDD (degenerative disc disease), cervical Mediastinal mass Asthma Chronic pain syndrome Costochondritis Thrombocytosis TMJ (temporomandibular joint syndrome) Numbness and tingling of left leg Tremors of nervous system Lyme disease Hypersomnia Snoring Hyperlipidemia HTN (hypertension) GERD (gastroesophageal reflux disease) Generalized headaches Back pain Arthritis Family History Family History Father Heart disease Cancer Prostate cancer Mother Dementia Congestive heart failure Surgical History Surgical History History of esophagogastroduodenoscopy (EGD) (03/26/25) Mediastinal mass (11/08/23) History of mandibular surgery S/P cervical spinal fusion Hx of cervical spine surgery Hx of endoscopy Hx of colonoscopy History of salpingo-oophorectomy History of laparoscopy Hx of arthroscopy Hx of tubal ligation Hx of hysterectomy, total Hx of shoulder surgery Hx of knee surgery Social History Social History (Updated 04/21/25 @ 15:37 by Ana Lilia Carrillo RN) Household Members: Spouse Housing: House Are you a primary farm or ranch animal caretaker to a significant other at home: No Do you presently have visiting nurse or other home services: No Alcohol intake: current Patient Tobacco Use Status: Current everyday Tobacco user Tobacco use type: Cigarette Cigarettes Per Day: 2 Years Smoked: 26 e-Cigarette/Vaping Use: Never Used Second Hand Smoke Exposure: No Use of substances other than those prescribed or required for medical reasons: No Have you been hit, kicked, punched, or otherwise hurt by someone within the past year? If so, by whom?: No Are you DNR?: No Advance Directives: No Advance Directives Information Provided: Yes Advance Directives on File: No Poor oral hygiene: No service: No Current occupational status: disabled Current occupational exposures/hazards: No Cognitive needs: No Hearing needs: No Vision needs: No Meds Allergies Allergy/AdvReac Type Severity Reaction Status Date / Time Seasonal Allergies Allergy Severe Itchy Eyes Verified 04/24/25 08:01 lisinopril AdvReac Severe Cough Verified 04/24/25 08:01 pregabalin (From Lyrica) AdvReac Severe Shortness Verified 04/24/25 08:01 of Breath celecoxib (From Celebrex) AdvReac Intermediate Hypertensio Verified 04/24/25 08:01 n varenicline (From Chantix) AdvReac Intermediate Depression Verified 04/24/25 08:01 Home Medications ?Medication ?Instructions ?Recorded ?Confirmed ?Last Taken ?Type cyclosporine 0.05 % eye drops in a 1 drp ophthalmic (eye) Q12H 07/03/23 04/24/25 11/08/23 History dropperette (Restasis) propranolol 60 mg capsule,24 60 mg PO BEDTIME 08/28/23 04/24/25 11/07/23 History hr,extended release magnesium gluconate 27 mg 27 mg PO BID 10/05/23 04/24/25 11/07/23 History magnesium (500 mg) tablet (Mag-G) duloxetine 60 mg capsule,delayed 120 mg PO DAILY 01/07/25 04/24/25 Unknown History release cyclobenzaprine 10 mg tablet 10 mg PO TID PRN Muscle Spasm 04/21/25 04/24/25 Unknown History Exam Airway Mallampati Class: III (one cap bottom keft lateral) TM Dist: >3cm Neck ROM: Full Heart: rrr Lungs: cta Assessment and Plan Assessment Anesthesia Assessment: Anesthesia Plan Discussed Final Anesthetic Review NPO: Yes ASA Class: III Final Preanesthetic Review: No Changes in Pt Med Stat, Meds/Allgs Chart Reviewed and Consent Obtained/Reviewed Patient Risk: Intermediate Procedure Risk: Low Anesthetic Plan Anesthetic Plan: MAC: Disposition: Standard PACU
[2025-04-24] VITALS (8 sets, daily range): BP systolic 105–149; BP diastolic 64–81; PULSE 69–74; RESP 14–18; TEMP 36.1–36.8; O2SAT 96–98
--- NOTE | ~2025-04-24 | XR_ITS ---
EXAMINATION: XR LUMBOSACRAL SPINE CLINICAL INFORMATION: evaluation of SCS leads COMPARISON: None available. TECHNIQUE: Three views of the lumbosacral spine. FINDINGS: Spinal stimulator leads are in place. The right lead terminates at the superior endplate of T8. The left lead terminates at the middle T7 level. Leads appear intact. No discontinuity. Imaged lung bases are clear. Cardiac and mediastinal contours are normal. Normal bowel gas pattern present. No dilated loops. There are surgical clips in the right mid pelvis. There is no suspicious lytic or blastic bone lesion present. There are spinal degenerative changes mainly in the lumbar region. XR/XR lumbar spine 1V IMPRESSION: Spinal stimulator leads in place as detailed. No acute findings in the abdomen or spine. Electronically signed by: Nik Mayo MD 04/24/2025 12:46 PM EDT
--- NOTE | ~2025-04-24 | FL_ITS ---
EXAMINATION: FL GUIDANCE ONLY HISTORY: spinal cord stimulator trial COMPARISON: None available. TECHNIQUE: Fluoroscopy time: 2.27 minutes. Cumulative Dose: 62.102 mGy. DAP: 17.122 mGym2 Images: 5. FINDINGS: Images demonstrate placement of a spinal stimulator with the tip of the lead at the superior endplate of T8. FL/FL guidance in OR IMPRESSION: Fluoroscopy during procedure. Please see procedure report for additional information. Electronically signed by: Celso Joiner MD 04/24/2025 12:40 PM EDT
[2025-04-24] MEDS: Lactated Ringers 1,000 ML 100 ML IVCONT (08:29)
--- NOTE | 2025-04-24 10:27 | P.HPSUR_ITS ---
Pre-Procedural Eval Section A - 24 Hr Update-Section A only Date of Service: 04/24/25 The patient is an INPATIENT: No Changes since office visit: Yes Patient answered all questions The patient has been examined within 24 hours of the surgical procedure. The History & Physical has been completed within 30 days and I have reviewed it.: No Section B - Complete if H&P > 30 days Chief Complaint: Postlaminectomy syndrome,chronic pain Details of Present Illness: As above Relevant Family History (Specify if Yes): No Relevant Social History: None Present Medications: see Short Stay [facility] assessment Medical History: No relevant PMH History of Previous Operations: Relevant previous surgery/procedure and date(s) Allergies: Allergies Allergy/AdvReac Type Severity Reaction Status Date / Time Seasonal Allergies Allergy Severe Itchy Eyes Verified 04/24/25 08:01 lisinopril AdvReac Severe Cough Verified 04/24/25 08:01 pregabalin (From Lyrica) AdvReac Severe Shortness Verified 04/24/25 08:01 of Breath celecoxib (From Celebrex) AdvReac Intermediate Hypertensio Verified 04/24/25 08:01 n varenicline (From Chantix) AdvReac Intermediate Depression Verified 04/24/25 08:01 Review of Systems Sugical H&P ROS: Negative: Neurological, Psychiatric, Hem-Onc, Allergic/Immunologic, Genitourinary, Integumentary, Endocrine and Eyes/Ears/Nose/Throat and Yes, Specify: Constitution (Morbid obesity), Cardiovascular ([place],), Respiratory (Asthma), Gastrointestinal (GERD) and Musculoskeletal (Postlaminectomy syndrome vertebra genic pain syndrome) Exam Surgical H&P Exam: Normal: HEENT, Normal: Heart, Normal: Lungs, Normal: Extremities, Normal: Skin and Normal: Neurological and Significant Findings: Abdomen (Enlarged due to fat) Plan Diagnosis/Plan: Unchanged I have reviewed the history and physical and performed a pertinent physical examination on my patient. No changes have occurred unless specified. Trial of Nevro spinal cord stimulator thoracic position. Time Spent With Patient Time: Total time managing care of this patient today ____ minutes.
--- NOTE | 2025-04-24 12:04 | P.BOP_ITS ---
Brief Operative Note Date of Service: 04/24/25 Pre-op diagnosis: Postlaminectomy syndrome Post-op diagnosis: same Procedure: The trial of spinal cord stimulator Michaelro. Surgeon: Von Baltazar MD Was an Physician General Practice used for this Procedure?: No Estimated blood loss (mL): 0 Pathology: none sent Condition: stable Disposition: PACU
--- NOTE | 2025-04-24 12:06 | P.OP_ITS ---
Operative Note Operative Note Date of Service: 04/24/25 Narrative: Lety is very pleasant 59 years old who is here for the trial of spinal cord stimulator Nevro for the treatment of? postlaminectomy syndrome and chronic pain syndrome. Preoperatively patient received?? ? Cefazolin 2 g intravenously approximately? 30 minutes before the procedure.? After obtaining informed consent patient was brought to the operating room, she was positioned?? Prone on the operating table,? [place] [employer] monitors were applied and patient was moderately sedated. ? Time-out was performed delineating correct site, side, the nature of the procedure, patient's allergy, preoperative antibiotic if needed.? All operating room staff was participating in OR time-out procedure. Patient's entire back was prepped with ChloraPrep twice and draped with full body fenestrated drape.? Sterilely draped C-arm was brought over operating field and sqare picture of T11-T12, L1, L2 vertebrae as were demonstrated on the screen.?The decision was made to concentrate the attention on? T12-L1 interlaminar space.? The location of the projection of the right pedicle center of the? L2 vertebra was found on the skin using C-arm.? This location was injected with mixture of lidocaine 2% and Marcaine 0.5% 5 cc.? After that 11 blade was used to make a fadia on the skin.? 10 cm 14 gauge introducer epidural needle was inserted through the fadia and advanced to?? T12-L1 epidural intersp supriya.? The advancement of the needle was performed on anterior posterior and lateral views.?YESICA to air was used to detect epidural space. ? . the needle was advancing to were the? [id number] interspace on anterior posterior and lateral views.Guitar wire and loss of resistance technique were used to locate epidural space.? When guitar wire was spread in the epidural fashion, epidural lead was inserted through the needle and it was advanced to top T8 position PRACTICALLY at THE MIDLINE in the posterior epidural space.? After that location of the projection of the LEFT pedicle center of the?? L2 vertebra was found on the skin using C-arm.? This location was injected with mixture of lidocaine 2% and Marcaine 0.5% 5 cc.? After that 11 blade was used to make a fadia on the skin.? 10 cm 14 gauge? introducer epidural needle was inserted through the fadia and advanced to T12-L1 epidural interspace. . The advancement of the needle was done on AP and lateral views, YESICA to air was used to detect epidural space, guitar wire was advanced to the needle and was spreading in epidural fashion and after that epidural stimulation lead was inserted through the needle and was advancing to the posterior epidural space to the level of T9 upper third of the vertebra with the position slightly left to midline? right inserted wire. The position of the leads verified on anterior posterior and lateral views,The stilets and epidural needle were withdrawn and care was taken not to dislodge the epidural leads. The anchoring devices were dislodged on the leads and advanced to the level of the skin.? The anchoring device was sutured with two 0- 0 silk sutures for each anchor? to the skin of the patient.? The screws were tighten on the anchoring devices until 3 clicks were heard. The leads were conn ected to testing device.? Bacitracin ointment was applied to the entrance point of the needle entrance on the right.? Sterile dressing applied.? The lead was connected to stimulating device which was taped to the skin. The impedance was checked and it was appropriate. The patient tolerated procedure well.? She was taken outside of the operating room to recovery room where she recovered uneventfully
== END 2025-04-24 14:12 | disposition home or self-care (01) ==
PROVIDERS: PCP Family Medicine; Visit Provider Anesthesiology
PROC: (CPT 63650; principal; 2025-04-24 09:30)
DX: M96.1 Postlaminectomy syndrome, not elsewhere classified (principal); G89.4 Chronic pain syndrome; M50.30 Other cervical disc degeneration, unspecified cervical region; I10 Essential (primary) hypertension; J45.909 Unspecified asthma, uncomplicated; G25.2 Other specified forms of tremor; Z88.8 Allergy status to other drugs, medicaments and biological substances; Z98.890 Other specified postprocedural states
CPT/HCPCS: 63650 ×2; 72020; C1889; C1897; J0690; J2003; J2250; J2704; J2795; J3010

== ENCOUNTER → 2025-04-24 07:35 | Outpatient (BNV) | payer OTHER, SELFPAY | PROVIDERS: PCP Family Medicine; Visit Provider Anesthesiology | DX: M96.1 Postlaminectomy syndrome, not elsewhere classified (principal) | CPT/HCPCS: 63650 ==

== ENCOUNTER → 2025-04-24 12:20 | Outpatient (BNV) | payer OTHER, SELFPAY | PROVIDERS: PCP Family Medicine; Visit Provider Radiology Diagnostic Radiology | DX: T85.122A Displacement of implanted electronic neurostimulator of spinal cord electrode (lead), initial encounter (principal) | CPT/HCPCS: 72020 ==

== ENCOUNTER 2025-05-01 08:28 | Outpatient (AMB) | payer OTHER, SELFPAY ==
[2025-05-01 08:48] VITALS: BP 172/86; PULSE 73; RESP 20; O2SAT 100; BMI 39.6
--- NOTE | 2025-05-01 08:48 | A.OFFVIS_ITS ---
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 She recently underwent a spinal cord stimulator trial on 04/24/25, which has resulted in significant pain relief, reducing her pain level from a 9/10 to a 4/10. The trial was deemed successful, and she would like to proceed with permanent implant. She endorses at least 75% pain relief with improvement in function and mobility. The patient reports residual pain when sitting, which she attributes to a fall approximately 30 years ago. She experiences discomfort in the coccygeal region, which was noted prior to the procedure. The patient has a history of weakness in her lower extremities, which she believes is due to prolonged inactivity. She has been able to increase her activity level, including walking for 10 minutes several times a day, since the trial. Prior to the trial, she was unable to walk without significant pain. She has also been able to care for herself including dressing and bathing which she needed help with prior to the trial lead placement. Has not been taking OTC that she had needed to take prior to trial placement. - Pain onset: Chronic, with significant relief post-spinal cord stimulator trial - Pain quality: Residual pain when sitting, discomfort in coccygeal region - Pain location: Lower back, coccygeal region - Exacerbating factors: Sitting on hard surfaces - Relieving factors: Spinal cord stimulator trial - Affect: Improved mood due to decreased pain levels - Analgesia: Pain reduced from 9/10 to 4/10 post-trial, no current use of analgesics - Adverse Effects: None reported from the trial - Activities of Daily Living: Increased activity, able to walk and perform daily tasks - Aberrant Drug Related Behaviors: None reported PFSH Medical History Difficulty urinating Empty sella turcica Polyarthralgia Raynauds phenomenon DDD (degenerative disc disease), cervical Mediastinal mass Asthma Chronic pain syndrome Costochondritis Thrombocytosis TMJ (temporomandibular joint syndrome) Numbness and tingling of left leg Tremors of nervous system Lyme disease Hypersomnia Snoring Hyperlipidemia HTN (hypertension) GERD (gastroesophageal reflux disease) Generalized headaches Back pain Arthritis Surgical History History of esophagogastroduodenoscopy (EGD) (03/26/25) Mediastinal mass (11/08/23) History of mandibular surgery S/P cervical spinal fusion Hx of cervical spine surgery Hx of endoscopy Hx of colonoscopy History of salpingo-oophorectomy History of laparoscopy Hx of arthroscopy Hx of tubal ligation Hx of hysterectomy, total Hx of shoulder surgery Hx of knee surgery Family History Father Heart disease Cancer Prostate cancer Mother Dementia Congestive heart failure Social History (Updated 04/21/25 @ 15:37 by Ana Lilia Carrillo RN) Household Members: Spouse Housing: House Are you a primary career services assistant to a significant other at home: No Do you presently have visiting nurse or other home services: No Alcohol intake: current Patient Tobacco Use Status: Current everyday Tobacco user Tobacco use type: Cigarette Cigarettes Per Day: 2 Years Smoked: 26 e-Cigarette/Vaping Use: Never Used Second Hand Smoke Exposure: No service: No Current occupational status: disabled Current occupational exposures/hazards: No Cognitive needs: No Hearing needs: No Vision needs: No Review of Systems Const Details: - Musculoskeletal: Reports residual pain when sitting, weakness in lower extremities - Neurological: Denies new neurological deficits Physical Exam Exam Exam: General: awake, alert, oriented. Answers questions appropriately. Fully engaged in examination. Skin: warm, dry, intact HEENT: Normocephalic. Hearing intact. Cardiac: External chest normal in appearance. Respiratory: No cough, audible wheezing or stridor. Abdomen: without gross distension. MS: No obvious swelling or deformities. Neurological: Oriented to person, place, time and situation. Thought process intact. Psychiatric: Appropriate mood and affect. Good judgment and insight. Nevro SCS Trial lead removal: Area was cleansed with chloraprep, dressing was taken down, insertion site was visualized and without redness/irritation/drainage. Sutures were then removed and both leads withdrawn without resistance; leads examined and noted to be without concern, tips intact. Area cleansed again with chloraprep, bacitracin dressing was applied and covered with tegaderm. Patient tolerated well. Vital Signs: Last Vital Signs Pulse 73 05/01/25 08:48 Resp 20 05/01/25 08:48 BP 172/86 H 05/01/25 08:48 Pulse Ox 100 05/01/25 08:48 Oxygen Delivery Method Room Air 05/01/25 08:48 BMI result Body Mass Index 39.6 Results Reviewed Results Reviewed: 03/17/25 MRI lumbar spine Findings: Conus terminates at L1/L2 level. Unremarkable visualized cord, conus medullaris and cauda equina. Multilevel disc dehydration and severe L5/S1 disc narrowing not significantly changed from prior study. Posterior annular disc fissures noted at some of the lumbar levels. New ljdhcihj-lm-[id number] Modic type 1 changes at L4/L5. Mild Modic type 1 changes at L2/L3. Modic type 2 changes at L5/S1. No acute fracture. Unremarkable paravertebral soft tissues and visualized abdomen. L5/S1: No significant change in grade 1 retrolisthesis, pseudodisc bulge, and vdrj-oh-bunqyred bilateral neural foraminal stenosis. L4/L5: No significant change in grade 1 retrolisthesis and predominantly right-sided disc bulge versus broad-based disc protrusion associated with snej-lz-dqluuvdq right and mild left neural foraminal stenosis. L3/L4: Grade 1 retrolisthesis and up to 5 mm (AP dimension) left subarticular/neural foraminal (inferior aspect) disc herniation associated with pvnr-nt-qwokrshu left neural foraminal and mild left subarticular recess stenosis as well as mild right neural foraminal compromise as before. L2/L3: New small left central disc herniation without significant central canal compromise. Grade 1 retrolisthesis as before. L1/L2: Nonprogressive small left central disc protrusion without significant central canal compromise as before. T12/L1: No significant central canal or neural foraminal stenosis. IMPRESSION: No evidence of progressive central canal, lateral recess, neural foraminal stenosis with mostly chronic changes as described above 04/10/2024 MRI OF THE THORACIC SPINE WITHOUT CONTRAST MRI OF THE LUMBAR SPINE WITHOUT CONTRAST CLINICAL INFORMATION: Chronic pain syndrome. Postlaminectomy syndrome. Bilateral lower extremity weakness and numbness feeling 6 months of conservative treatment. COMPARISON: Thoracic spine MRI September 08, 2021. TECHNIQUE: Multiplanar multisequence MR imaging of the thoracic and lumbar spine obtained without contrast. FINDINGS: THORACIC SPINE MRI: There are 12 rib bearing thoracic type vertebral bodies. Mild rightward convex sclerotic curvature of the upper thoracic spine. Thoracic alignment is otherwise maintained. There is multilevel degenerative disc disease and hypertrophic facet arthropathy throughout the thoracic spine that remains similar to the September 08, 2021 thoracic spine MRI. Small paracentral disc protrusions continue to mildly narrow the central canal at the T6-T7, T7-T8, and T8-T9 levels. There is no high-grade foraminal stenosis within the thoracic spine. There are partially imaged postoperative changes following ACDF at C6-C7. There is no thoracic cord compression and there are no thoracic cord signal changes when accounting for artifact. LUMBAR SPINE MRI: There are 5 nonrib-bearing lumbar-type vertebral bodies. S1 is lumbarized, showing rudimentary disc with S2. Grade 1 retrolisthesis of L2 on L3. There is severe disc line loss at L5-S1 and there is mild disc volume loss at the remaining lumbar levels. There is disc desiccation at all lumbar levels. There are Modic type II endplate signal changes at L5-S1. Modic type I endplate signal changes at L4-L5. No additional bone marrow edema. No acute fractures. Conus terminates at the L1-L2 level. There is bilateral perinephric stranding. L1-L2: A small shallow left paracentral disc protrusion minimally indents the ventral thecal sac without central canal stenosis. There is no foraminal stenosis. L2-L3: Grade 1 retrolisthesis. Shallow left paracentral disc protrusion minimally indents the ventral thecal sac. No foraminal stenosis. L3-L4: There is a left paracentral/left lateral disc protrusion that contacts the traversing left L4 nerve root within the left subarticular zone and results in taia-kw-ixogvnaz left-sided foraminal stenosis without exiting nerve root compression. No central canal and no right foraminal stenosis. L4-L5: There is a large right foraminal/extraforaminal disc protrusion that results in moderate to severe right-sided foraminal stenosis and mass effect on the foraminal and extra foraminal segments of the exiting right L4 nerve root. Left lateral disc osteophyte results in moderate left-sided foraminal stenosis and mass effect on the exiting left L4 nerve root at the left foraminal/extraforaminal junction. There is no central canal stenosis. L5-S1: Shallow disc protrusion minimally indents the ventral thecal sac. Disc osteophyte and advanced facet arthropathy result in moderate to severe bilateral foraminal stenosis with compression of the exiting L5 nerve roots bilaterally. IMPRESSION: * Mild to moderate thoracic spondylosis. No severe central canal stenosis and no severe foraminal stenosis within the thoracic spine. There are partially imaged postoperative changes following ACDF at C6-C7. * At L3-L4, there is a left paracentral/left lateral disc protrusion that contacts the traversing left L4 nerve root within the left subarticular zone and results in [id number] left-sided foraminal stenosis without exiting nerve root compression. * At L4-L5, there is a large right foraminal/extraforaminal disc protrusion that results in moderate to severe right-sided foraminal stenosis and mass effect on the foraminal and extra foraminal segments of the exiting right L4 nerve root. Left lateral disc osteophyte results in moderate left-sided foraminal stenosis and mass effect on the exiting left L4 nerve root at the left foraminal/extraforaminal junction. * At L5-S1, multifactorial degenerative changes result in moderate to severe bilateral foraminal stenosis with compression of the exiting L5 nerve roots bilaterally. * S1 shares a rudimentary disc with S2. 02/01/2024 XR/XR lumbar spine 2-3V FINDINGS: Mild dextroscoliosis of the lumbar spine. Surgical clips in the pelvis. Facet arthritis in the lower lumbar spine. Moderate multilevel lumbar spondylosis with moderate loss of disc space height at L2-L3, L3-L4, L4-L5 and marked loss of disc space at L5-S1. IMPRESSION: Moderate multilevel lumbar spondylosis. 09/08/2021 MRI Thoracic Assessment & Plan Assessment & Plan (1) Lumbar radiculopathy: Code(s): M54.16 - Radiculopathy, lumbar region Category: Medical (2) Muscle weakness of proximal extremity: Code(s): M62.81 - Muscle weakness (generalized) Category: Medical (3) Lumbar spondylosis: Code(s): M47.816 - Spondylosis without myelopathy or radiculopathy, lumbar region Category: Medical (4) Numbness and tingling of left leg: Code(s): R20.0 - Anesthesia of skin; R20.2 - Paresthesia of skin Category: Medical (5) Chronic pain syndrome: Code(s): G89.4 - Chronic pain syndrome Category: Medical (6) Post laminectomy syndrome: Code(s): M96.1 - Postlaminectomy syndrome, not elsewhere classified Category: Medical Plan The patient has experienced significant pain relief from the spinal cord stimulator trial, reports at least 75% pain relief with improvement in function and mobility. Given the success of the trial, a permanent implant will be pursued to maintain pain relief. The patient is advised to continue increasing her activity levels, including walking and performing daily tasks, to improve her overall physical condition. She is encouraged to engage in strengthening exercises to address the weakness in her lower extremities. The patient is informed that the permanent implant will not be performed simultaneously with any other procedures to avoid complications and accurately assess the effectiveness of each intervention. Patient was informed and verbally consented to the use of an ambient scribe for clinic note documentation during this visit. Patient Instructions: - Continue increasing activity levels, including walking and daily tasks. - Engage in strengthening exercises to improve lower extremity strength. - Await scheduling for the permanent spinal cord stimulator implant. Coding Level of Care Code Est Pt Level 3 (92138) Complex EM visit Add On G2211 Diagnoses Lumbar radiculopathy M54.16 Muscle weakness of proximal extremity M62.81 Lumbar spondylosis M47.816 Numbness and tingling of left leg R20.0; R20.2 Chronic pain syndrome G89.4 Post laminectomy syndrome M96.1
--- OUTSIDE RECORDS SUMMARY | 2025-05-01 08:53 | XMS_ITS | Clinical Summary ---
Author Organization [employer] [facility] ity Address [address] [place] [address] Care Team Providers Care Environmental Aide Name Role Phone Amrik Mendoza MD Primary Care Provider [phone] Surgical History Surgery Date Site/Laterality Comments OTHER [...] - Risk 60-74 years 1-dose series) 2023 Depression Screening 08/27/2024 COVID-19 Vaccine (3 - 2024- season) 2025 12/14/2020, 11/21/2020 Influenza Vaccine (#1) 2025 8, [...] Recently Relevant to Health Maintenance Care Teams Environmental Aide Relationship Specialty Start Date End Date Amrik Mendoza MD [address] [place] [address] Dr Tra MA PCP - General 10/23/23
== END 2025-05-01 09:39 | disposition home or self-care (01) ==
LOC: HO.PMC 08:28
PROVIDERS: PCP Family Medicine; Visit Provider Registered Nurse Emergency
DX: M54.16 Radiculopathy, lumbar region (principal); M62.81 Muscle weakness (generalized); M47.816 Spondylosis without myelopathy or radiculopathy, lumbar region; R20.0 Anesthesia of skin; R20.2 Paresthesia of skin; G89.4 Chronic pain syndrome; M96.1 Postlaminectomy syndrome, not elsewhere classified
CPT/HCPCS: 99024

== ENCOUNTER → 2025-05-01 08:28 | Outpatient (BNVA) | payer OTHER, SELFPAY | PROVIDERS: PCP Family Medicine; Visit Provider Registered Nurse Emergency | DX: M54.16 Radiculopathy, lumbar region (principal); M47.816 Spondylosis without myelopathy or radiculopathy, lumbar region; M62.81 Muscle weakness (generalized); R20.0 Anesthesia of skin; R20.2 Paresthesia of skin; G89.4 Chronic pain syndrome; M96.1 Postlaminectomy syndrome, not elsewhere classified; F17.210 Nicotine dependence, cigarettes, uncomplicated; Z13.89 Encounter for screening for other disorder ==

== ENCOUNTER 2025-05-29 11:53 | Day surgery (SDC) | payer OTHER, SELFPAY ==
--- OUTSIDE RECORDS SUMMARY | 2025-05-19 12:53 | XMS_ITS | Clinical Summary ---
Author Organization [employer] [facility] ity Address [address] [place] [address] Care Team Providers Care Contract Clerk Name Role Phone Amrik Mendoza MD Primary [...] Recently Relevant to Health Maintenance Care Teams Contract Clerk Relationship Specialty Start Date End Date Amrik Mendoza MD [address] [place] [address] Dr Tra MA PCP - General 10/23/23
[2025-05-27 13:39] VITALS: BMI 39.6
--- NOTE | 2025-05-28 08:21 | HO.ANESPROP2 ---
Documented by User: Yuliana Thomson NP 05/28/25 08:21 HPI - Anesthesia Eval Consult details Narrative: 59yo F for Spinal Cord Stimulation Implant s/p Trial 03/2025 with T[employer] PMFSH Active Problems Active Problems: All Active Problems Fecal incontinence (Acute) Lumbar radiculopathy (Acute) Dry mouth and eyes (Acute) Dry eyes (Acute) Muscle weakness of proximal extremity (Acute) Neoplasm of uncertain behavior of skin (Acute) Pain in right tay (Acute) Candidiasis of vagina (Acute) Oral pharyngeal candidiasis (Acute) Lumbar spondylosis (Acute) Post laminectomy syndrome (Acute) Thoracic back pain (Acute) Myofascial pain syndrome of thoracic spine (Acute) Tick bite (Acute) Smoking (Acute) BMI 37.0-37.9, adult (Acute) Sacroiliac joint dysfunction of both sides (Acute) Dysphagia (Acute) Environmental allergies (Acute) Strep throat (Acute) Obesity (BMI 30-39.9) (Acute) Personal history of tobacco use (Acute) Cough (Acute) Polyarthralgia (Acute) Costochondritis (Acute) Shortness of breath (Acute) Dizziness (Acute) Low back pain (Acute) Seasonal allergies (Acute) Sinus infection (Acute) Breast cancer screening by mammogram (Acute) Screening for colon cancer (Acute) Screening for cervical cancer (Acute) Adult general medical exam (Acute) Hyponatremia (Acute) Thrombocytosis (Acute) Chronic pain syndrome (Acute) Asthma (Acute) High platelet count (Acute) BMI 39.0-39.9,adult (Acute) Anxiety and depression (Acute) Normal physical exam (Acute) TMJ (dislocation of temporomandibular joint) (Acute) Difficulty urinating (Acute) Empty sella turcica (Acute) Numbness and tingling of left leg (Acute) Tremors of nervous system (Acute) Hypersomnia (Acute) Snoring (Acute) Hyperlipidemia (Acute) HTN (hypertension) (Acute) GERD (gastroesophageal reflux disease) (Acute) Generalized headaches (Acute) Back pain (Acute) Arthritis (Acute) Past Medical History Medical History (Updated 05/27/25 @ 13:36 by Beverly Dyer RN) Difficulty urinating Empty sella turcica Polyarthralgia Raynauds phenomenon DDD (degenerative disc disease), cervical Mediastinal mass Asthma Chronic pain syndrome Costochondritis Thrombocytosis TMJ (temporomandibular joint syndrome) Numbness and tingling of left leg Tremors of nervous system Lyme disease Hypersomnia Snoring Hyperlipidemia HTN (hypertension) GERD (gastroesophageal reflux disease) Generalized headaches Back pain Arthritis Family History Family History Father Heart disease Cancer Prostate cancer Mother Dementia Congestive heart failure Family history of problems with anesthesia: No Surgical History Surgical History (Updated 05/27/25 @ 13:37 by Beverly Dyer RN) S/P placement of nerve stimulator History of esophagogastroduodenoscopy (EGD) (03/26/25) Mediastinal mass (11/08/23) History of mandibular surgery S/P cervical spinal fusion Hx of cervical spine surgery Hx of endoscopy Hx of colonoscopy History of salpingo-oophorectomy History of laparoscopy Hx of arthroscopy Hx of tubal ligation Hx of hysterectomy, total Hx of shoulder surgery Hx of knee surgery History of Problems with Anesthesia: Yes Social History Social History (Updated 04/21/25 @ 15:37 by Ana Lilia Carrillo RN) Household Members: Spouse Housing: House Are you a primary childbirth and infant care teacher to a significant other at home: No Do you presently have visiting nurse or other home services: No Alcohol intake: current Alcohol intake frequency: holidays/special occasions only Patient Tobacco Use Status: Current everyday Tobacco user Tobacco use type: Cigarette Cigarettes Per Day: 2 Years Smoked: 26 e-Cigarette/Vaping Use: Never Used Second Hand Smoke Exposure: No Have you been hit, kicked, punched, or otherwise hurt by someone within the past year? If so, by whom?: No Are you DNR?: No Advance Directives: No Advance Directives Information Provided: Yes Advance Directives on File: No Patient : No : No Poor oral hygiene: No service: No Current occupational status: disabled Current occupational exposures/hazards: No Cognitive needs: No Hearing needs: No Vision needs: No Meds Allergies Allergy/AdvReac Type Severity Reaction Status Date / Time Seasonal Allergies Allergy Severe Itchy Eyes Verified 05/01/25 08:47 lisinopril AdvReac Severe Cough Verified 05/01/25 08:47 pregabalin (From Lyrica) AdvReac Severe Shortness Verified 05/01/25 08:47 of Breath celecoxib (From Celebrex) AdvReac Intermediate Hypertensio Verified 05/01/25 08:47 n varenicline (From Chantix) AdvReac Intermediate Depression Verified 05/01/25 08:47 Home Medications ?Medication ?Instructions ?Recorded ?Confirmed ?Last Taken ?Type cyclosporine 0.05 % eye drops in a 1 drp ophthalmic (eye) Q12H 07/03/23 04/24/25 11/08/23 History dropperette (Restasis) propranolol 60 mg capsule,24 60 mg PO BEDTIME 08/28/23 05/27/25 11/07/23 History hr,extended release magnesium gluconate 27 mg 27 mg PO BID 10/05/23 05/27/25 11/07/23 History magnesium (500 mg) tablet (Mag-G) duloxetine 60 mg capsule,delayed 120 mg PO DAILY 01/07/25 05/27/25 Unknown History release Exam Height,Weight and Vital Signs: Height 5 ft Weight 92.079 kg Pertinent Lab Results Pertinent Lab Results: Laboratory Tests 02/11/25 09:55 WBC 8.9 Hgb 13.4 Hct 41.8 Plt Count 565 H D Sodium 138 Potassium 4.0 Chloride 107 Carbon Dioxide 24 BUN 11 Creatinine 0.73 Narrative Narrative: EKG 2023 Vent. Rate : 079 BPM Atrial Rate : 079 BPM P-R Int : 166 ms QRS Dur : 092 ms QT Int : 366 ms P-R-T Axes : 028 003 033 degrees QTc Int : 419 ms Normal sinus rhythm Normal ECG When compared with ECG of 20-MAR-2024 13:36, No significant change was found Assessment and Plan Assessment Anesthesia Assessment: Chart Reviewed Final Anesthetic Review Family History of Problems with Anesthesia: No History of Problems with Anesthesia: Yes Documented by User: Braxton Thomas MD 05/29/25 12:31 PMF Past Medical History Medical History (Updated 05/27/25 @ 13:36 by Beverly Dyer RN) Difficulty urinating Empty sella turcica Polyarthralgia Raynauds phenomenon DDD (degenerative disc disease), cervical Mediastinal mass Asthma Chronic pain syndrome Costochondritis Thrombocytosis TMJ (temporomandibular joint syndrome) Numbness and tingling of left leg Tremors of nervous system Lyme disease Hypersomnia Snoring Hyperlipidemia HTN (hypertension) GERD (gastroesophageal reflux disease) Generalized headaches Back pain Arthritis Family History Family History Father Heart disease Cancer Prostate cancer Mother Dementia Congestive heart failure Surgical History Surgical History (Updated 05/27/25 @ 13:37 by Beverly Dyer RN) S/P placement of nerve stimulator History of esophagogastroduodenoscopy (EGD) (03/26/25) Mediastinal mass (11/08/23) History of mandibular surgery S/P cervical spinal fusion Hx of cervical spine surgery Hx of endoscopy Hx of colonoscopy History of salpingo-oophorectomy History of laparoscopy Hx of arthroscopy Hx of tubal ligation Hx of hysterectomy, total Hx of shoulder surgery Hx of knee surgery History of Problems with Anesthesia: No Social History Social History (Updated 04/21/25 @ 15:37 by Ana Lilia Carrillo RN) Household Members: Spouse Housing: House Are you a primary childbirth and infant care teacher to a significant other at home: No Do you presently have visiting nurse or other home services: No Alcohol intake: current Alcohol intake frequency: holidays/special occasions only Patient Tobacco Use Status: Current everyday Tobacco user Tobacco use type: Cigarette Cigarettes Per Day: 2 Years Smoked: 26 e-Cigarette/Vaping Use: Never Used Second Hand Smoke Exposure: No Have you been hit, kicked, punched, or otherwise hurt by someone within the past year? If so, by whom?: No Are you DNR?: No Advance Directives: No Advance Directives Information Provided: Yes Advance Directives on File: No Patient : No : No Poor oral hygiene: No service: No Current occupational status: disabled Current occupational exposures/hazards: No Cognitive needs: No Hearing needs: No Vision needs: No Meds Allergies Allergy/AdvReac Type Severity Reaction Status Date / Time Seasonal Allergies Allergy Severe Itchy Eyes Verified 05/01/25 08:47 lisinopril AdvReac Severe Cough Verified 05/01/25 08:47 pregabalin (From Lyrica) AdvReac Severe Shortness Verified 05/01/25 08:47 of Breath celecoxib (From Celebrex) AdvReac Intermediate Hypertensio Verified 05/01/25 08:47 n varenicline (From Chantix) AdvReac Intermediate Depression Verified 05/01/25 08:47 Home Medications ?Medication ?Instructions ?Recorded ?Confirmed ?Last Taken ?Type cyclosporine 0.05 % eye drops in a 1 drp ophthalmic (eye) Q12H 07/03/23 04/24/25 11/08/23 History dropperette (Restasis) propranolol 60 mg capsule,24 60 mg PO BEDTIME 08/28/23 05/27/25 11/07/23 History hr,extended release magnesium gluconate 27 mg 27 mg PO BID 10/05/23 05/27/25 11/07/23 History magnesium (500 mg) tablet (Mag-G) duloxetine 60 mg capsule,delayed 120 mg PO DAILY 01/07/25 05/27/25 Unknown History release Exam Airway Mallampati Class: II TM Dist: <=3cm Neck ROM: Full Loose/Missing/Broken Teeth: No Heart: ok Lungs: ok Assessment and Plan Assessment Anesthesia Assessment: Anesthesia Plan Discussed Final Anesthetic Review History of Problems with Anesthesia: No NPO: Yes ASA Class: III Final Preanesthetic Review: No Changes in Pt Med Stat, Meds/Allgs Chart Reviewed, Consent Obtained/Reviewed and Anes Risks/Benef Reviewed Patient Risk: Intermediate Procedure Risk: Intermediate Anesthetic Plan Anesthetic Plan: GA and Agree w/ Assess. and Plan Disposition: Standard PACU
--- NOTE | ~2025-05-29 | FL_ITS ---
EXAMINATION: XR FLUOROSCOPY WITH IMAGES CLINICAL INFORMATION: Thoracic Spinal cord stimulator implant COMPARISON: None available. TECHNIQUE: Fluoroscopy provided to: Dr. Baltazar Fluoroscopy time: 10 minutes, 2 seconds DAP: 89.231 Gycm2 Images: 3 FINDINGS: 3 fluoroscopic spot images of the thoracic spine taken during spinal cord stimulator implantation. Please refer to the full operative report for details. FL/FL guidance in OR IMPRESSION: Fluoroscopic guidance. Electronically signed by: Nik Mayo MD 05/29/2025 02:40 PM EDT
[2025-05-29 12:14] VITALS: BP 144/86; PULSE 86; RESP 16; TEMP 36.7; O2SAT 96
--- NOTE | 2025-05-29 12:20 | P.HPSUR_ITS ---
Pre-Procedural Eval Section A - 24 Hr Update-Section A only Date of Service: 05/29/25 The patient is an INPATIENT: No Changes since office visit: Yes Patient answered all questions The patient has been examined within 24 hours of the surgical procedure. The History & Physical has been completed within 30 days and I have reviewed it.: No Section B - Complete if H&P > 30 days Chief Complaint: Postlaminectomy syndrome,chronic pain Details of Present Illness: As above Relevant Family History (Specify if Yes): No Relevant Social History: None Present Medications: see Short Stay [facility] assessment Medical History: No relevant PMH History of Previous Operations: Relevant previous surgery/procedure and date(s) Allergies: Allergies Allergy/AdvReac Type Severity Reaction Status Date / Time Seasonal Allergies Allergy Severe Itchy Eyes Verified 05/01/25 08:47 lisinopril AdvReac Severe Cough Verified 05/01/25 08:47 pregabalin (From Lyrica) AdvReac Severe Shortness Verified 05/01/25 08:47 of Breath celecoxib (From Celebrex) AdvReac Intermediate Hypertensio Verified 05/01/25 08:47 n varenicline (From Chantix) AdvReac Intermediate Depression Verified 05/01/25 08:47 Review of Systems Sugical H&P ROS: Negative: Neurological, Psychiatric, Hem-Onc, Allergic/Immunologic, Genitourinary, Integumentary, Endocrine and Eyes/Ears/Nose/Throat and Yes, Specify: Constitution (Morbid obesity), Cardiovascular ([place],), Respiratory (Asthma), Gastrointestinal (GERD) and Musculoskeletal (Postlaminectomy syndrome vertebra genic pain syndrome) Exam Surgical H&P Exam: Normal: HEENT, Normal: Heart, Normal: Lungs, Normal: Extremities, Normal: Skin and Normal: Neurological and Significant Findings: Abdomen (Enlarged due to fat) Plan Diagnosis/Plan: Unchanged I have reviewed the history and physical and performed a pertinent physical examination on my patient. No changes have occurred unless specified. I will perform implantation of Nevro spinal cord stimulator. Time Spent With Patient Time: Total time managing care of this patient today ____ minutes.
[2025-05-29] MEDS: Lactated Ringers 1,000 ML 100 ML IVCONT (12:29)
[2025-05-29 15:12] VITALS: BP 108/55; PULSE 74; RESP 16; TEMP 36.6; O2SAT 95
[2025-05-29 15:17] VITALS: BP 105/63; PULSE 63; RESP 14; O2SAT 94
[2025-05-29 15:22] VITALS: BP 110/61; PULSE 65; RESP 14; O2SAT 93
--- NOTE | 2025-05-29 15:25 | P.BOP_ITS ---
Brief Operative Note Date of Service: 05/29/25 Pre-op diagnosis: spinal stenosis, lumbar radiculopathy, spondylosis lumbar chronic pain syndrome. Post-op diagnosis: same Procedure: Implantation of spinal cord stimulator Nevro. Implants: Nevro spinal cord stimulator RPG and 2 epidural leads. Surgeon: Von Baltazar MD Was an Band Saw Operator Cake Cutting used for this Procedure?: No Estimated blood loss (mL): 18 Pathology: none sent Condition: stable Disposition: PACU
[2025-05-29 15:27] VITALS: BP 106/64; PULSE 62; RESP 16; O2SAT 95
--- NOTE | 2025-05-29 15:29 | P.OP_ITS ---
Operative Note Operative Note Date of Service: 05/29/25 Narrative: Implantation of spinal cord stimulator Jonh Davidson is very pleasant 59 years old lady who came today into the operating room for implantation of spinal cord stimulator for the treatment of chronic pain secondary to spinal stenosis, spondylosis, chronic pain syndrome. She had successful trial of the SCS Jonh even know the trial was performed practically on 1 lead, patient dislodged her immediately after the procedure.. Preoperatively? patient received ?cefazolin 2 g mg approximately 30 minutes before the procedure. After obtaining informed consent the patient was brought to the operating room, she was positioned prone on the OR table, ? [place] [employer] monitors were applied and patient was induced with general LMA anesthesia. ?Time-out was performed delineating correct site, side, the nature of the procedure, patient's allergy, preoperative antibiotic if needed.? All operating room staff was participating in OR time-out procedure. Patient's entire back was prepped with ChloraPrep twice and draped with full body fenestrated drape and ioban film.? Sterilely draped C-arm was brought over operating field and square picture of T12-?L1-L2 L3 vertebrae as were demonstrated on the screen.? The skin in the projection of the spinous processes of L1-L2 was? infiltrated with the mixture of lidocaine 2% and ropivacaine 0.5% .? After that? number 10 Blade scalpel was used to perform vertical 6 cm? long incision.? the incision was widened and deepened until the prevertebral fascia was reached. Thorough hemostasis was obtained,? After that attention? was concentrated on the T12-L1 epidural interspace.? The location of the projection of the right pedicle center of the?L2 vertebra was found on the fascia using C- arm.? This location was injected with mixture of lidocaine 2% and Marcaine 0.5% 5 cc.? ? 10 cm 14 gauge? introducer epidural needle was inserted through the prevertebral fascia and advanced to? T12-L1 right epidural space.? The advancement of the needle was performed on anterior posterior and lateral views.? Guitar wire and loss of resistance technique were used to locate epidural space.? When guitar wire was spread in the epidural fashion, epidural lead was inserted through the needle and it was advanced to the posterior epidural space as close as possible to to the midline. When the lead was in the projection of the T12-L1 vertebral body I experience the difficulty keeping the epidural lead in the midline. Multiple attempts were made to advance electrode lead passing by this level eventually I requested to bring on the field blue sheath introducer the needle was withdrawn and blue sheath introducer was inserted into the epidural space over the body of the epidural lead. After that I was able to advance epidural lead at top of the T8 vertebral body projection in the posterior epidural space position of the lead in the posterior Epidural space was verified by x-ray. After that location of the projection of the LEFT pedicle center of the L2 vertebra was found using C-arm.? This location was injected with mixture of lidocaine 2% and Marcaine 0.5% 5 cc.?10 cm 14 gauge? introducer epidural needle was inserted through the fascia and advanced to T12-L1 left epidural interspace.? The advancement of the needle was performed on anterior posterior and lateral views.? Guitar wire and loss of resistance technique were used to locate epidural space.? When guitar wire was spread in the epidural fashion, epidural lead was inserted through the needle and it was advanced to the posterior epidural space.The lead was advanced slightly left to the existing electrode to the existing electrode approximately to T12-T11 epidural space were it started to deviated medially or laterally and getting into the lateral gutter and eventually into the end of the epidural space. The decision was made to switch the site of the needle insertion to T11-T12 epidural space. I obtained 5 inch 16 gauge epidural introducer needle and at the same positioned I inserted the 5 in needle and advanced it to T12-T11 epidural space. The advancement was made on anterior posterior and lateral views. The loss of resistance to air technique was used to locate the epidural space. Guitar wire was used to confirm the epidural space. Epidural lead was inserted through the epidural needle and advanced in the posterior epidural space to the projection of the top of the T9 lumbar vertebra. Location of the lead was verified by lateral view in the posterior epidural space. After satisfactory positioned of the epidural leads was established After that epidural needles were removed with care taken not to dislodge the epidural leads, the wound was irrigated with normal saline mixed with vancomycin, the anchoring devices were dislodged on the body of the electrode and advanced to the level of the epidural fascia. After that the anchoring devices were sutured to underlying prevertebral fascia, the fixating screw was turned until 4 clicks were heard on the right and on the left fixating screws sequentially. The position of the electrodes was verified again no major dislodgement was noted. Final image was saved, the wound was irrigated again impact with 4x4s soaked with normal saline containing vancomycin. After that attention was concentrated on the left? upper buttock of the patient ? were the decision was made to implant the battery.? 3. cm below the top of the left iliac crest horizontal incision was made 6 cm long using 10 blade scalpel, hemostasis was performed using? electric cautery..? Using sharp and dull dissection the pocket for the battery was formed in caudad direction from the incision.? Thorough hemostasis was performed.? After that the? wound pocket was? irrigated with vancomycin containing normal saline and tunneling device was used to connect midline incision and upper buttock incision.? The epidural leads were dislodged from midline incision to the buttock incision through the tunneling device.? After that they were connected to the [employer] spinal cord stimulator RPG? and impedance was checked? and found to be satisfactory with all lead contacts connected.? There were no electrodes with low impedance noted.? Anchoring? screws were fixed on the back of the battery.? Tycron of 0- 0 sutures were applied to the superior lateral and superior medial corners of the upper portion of the pocket? wound and after that the anchoring sutures were connected to the anchoring orifices on the battery.? The leads were gathered behind the body of the battery and battery was dislodged into the? subcutaneous pocket wound.? The sutures were tied and? irrigation was repeated for both incisions.? After that?0-0 Polysorb sutures?were used to close the? both wounds and the 0-2 polisorb sutures were used to approximate the level of the skin , [place] were applied to the skin and dry dressing was applied to the staple line.. The sterile dressing comprised of several 4x4 for each wound was affixed to the skin using tegaderm. The patient was transferred supine on the stretcher,? awaken, transferred stable to the PACU
[2025-05-29 15:42] VITALS: BP 112/62; PULSE 65; RESP 16; TEMP 36.2; O2SAT 97
== END 2025-05-29 16:17 | disposition home or self-care (01) ==
PROVIDERS: PCP Family Medicine; Visit Provider Anesthesiology
PROC: (CPT 63685; principal; 2025-05-29 14:00)
DX: M96.1 Postlaminectomy syndrome, not elsewhere classified (principal); G89.4 Chronic pain syndrome; M47.26 Other spondylosis with radiculopathy, lumbar region; M62.81 Muscle weakness (generalized); R20.0 Anesthesia of skin; R20.2 Paresthesia of skin; J45.909 Unspecified asthma, uncomplicated; I10 Essential (primary) hypertension; D75.839 Thrombocytosis, unspecified; Z79.899 Other long term (current) drug therapy; Z88.8 Allergy status to other drugs, medicaments and biological substances; Z98.890 Other specified postprocedural states; F17.210 Nicotine dependence, cigarettes, uncomplicated
CPT/HCPCS: 63685; 63650; C1778; C1816; C1822; C1889; J0690; J2003; J2704; J2795; J3010; J3374

== ENCOUNTER → 2025-05-29 11:53 | Outpatient (BNV) | payer OTHER, SELFPAY | PROVIDERS: PCP Family Medicine; Visit Provider Anesthesiology | DX: M48.062 Spinal stenosis, lumbar region with neurogenic claudication (principal); M54.12 Radiculopathy, cervical region; M47.896 Other spondylosis, lumbar region | CPT/HCPCS: 63650; 63685 ==

== ENCOUNTER 2025-06-09 09:32 | Outpatient (AMB) | payer OTHER, SELFPAY ==
--- NOTE | 2025-06-09 09:35 | MHC.OFFVIS ---
Vital Signs 06/09/25 09:41 06/09/25 09:42 Height 5 ft Weight 200 lb BMI 39.1 BP 194/101 H 159/84 H Blood Pressure Location Rt brachial Lt brachial Position Sitting Sitting Pulse 73 Pulse Source Pulse Oximeter Pulse Oximetry (%) 100 Oxygen Delivery Method Room Air Comment bp recheck Intake Visit Reasons: S/p Nevro SCS Implant 05/29/25 Intake Note: Pain today 03/05 Clinical Trials Systems Administrator Required: No Accompanied by: Spouse Allergies Seasonal Allergies Allergy (Severe, Verified 06/09/25 09:42) Itchy Eyes lisinopril Adverse Reaction (Severe, Verified 06/09/25 09:42) Cough pregabalin (From Lyrica) Adverse Reaction (Severe, Verified 06/09/25 09:42) Shortness of Breath celecoxib (From Celebrex) Adverse Reaction (Intermediate, Verified 06/09/25 09:42) Hypertension varenicline (From Chantix) Adverse Reaction (Intermediate, Verified 06/09/25 09:42) Depression HPI Comments Details: The patient is a 59-year-old female presenting with a postoperative follow-up visit 1 week after the Nebro spinal cord stimulator implantation. The patient has a history of spinal stenosis, lumbar spondylosis, and radiculopathy, which have been causing significant pain and discomfort. The spinal stenosis and lumbar spondylosis have been longstanding issues, contributing to chronic back pain and radiculopathy, particularly affecting the left leg. The patient reports that the pain level has increased to an 8 out of 10, which she attributes to both postoperative pain and her chronic conditions. She has been prescribed Vicodin by Dr. Baltazar s/p SCS implant, but she is trying to minimize its use. The patient has not noticed significant improvement in daily activities or sleep since the procedure, although she reports walking slightly better. The spinal cord stimulator is not yet functioning at full capacity, and adjustments are planned after the removal of lise later this week. The wound dressing was removed and the wound cleansed with ChloraPrep. The lower back and RPG battery wound sites are clean, no pathological discharge, no redness, no erythema, local temperature and no swelling. The lies are intact. Bacitracin ointment was applied to the wound incisions. Dry sterile and Tegaderm dressings were applied. Patient is wearing an abdominal binder. 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 She recently underwent a spinal cord stimulator trial on 04/24/25, which has resulted in significant pain relief, reducing her pain level from a 9/10 to a 4/10. The trial was deemed successful, and she would like to proceed with permanent implant. She endorses at least 75% pain relief with improvement in function and mobility. The patient reports residual pain when sitting, which she attributes to a fall approximately 30 years ago. She experiences discomfort in the coccygeal region, which was noted prior to the procedure. The patient has a history of weakness in her lower extremities, which she believes is due to prolonged inactivity. She has been able to increase her activity level, including walking for 10 minutes several times a day, since the trial. Prior to the trial, she was unable to walk without significant pain. She has also been able to care for herself including dressing and bathing which she needed help with prior to the trial lead placement. Has not been taking OTC that she had needed to take prior to trial placement. - Pain onset: Chronic, with significant relief post-spinal cord stimulator trial - Pain quality: Residual pain when sitting, discomfort in coccygeal region - Pain location: Lower back, coccygeal region - Exacerbating factors: Sitting on hard surfaces - Relieving factors: Spinal cord stimulator trial - Affect: Improved mood due to decreased pain levels - Analgesia: Pain reduced from 9/10 to 4/10 post-trial, no current use of analgesics - Adverse Effects: None reported from the trial - Activities of Daily Living: Increased activity, able to walk and perform daily tasks - Aberrant Drug Related Behaviors: None reported [facility] Medical History Difficulty urinating Empty sella turcica Polyarthralgia Raynauds phenomenon DDD (degenerative disc disease), cervical Mediastinal mass Asthma Chronic pain syndrome Costochondritis Thrombocytosis TMJ (temporomandibular joint syndrome) Numbness and tingling of left leg Tremors of nervous system Lyme disease Hypersomnia Snoring Hyperlipidemia HTN (hypertension) GERD (gastroesophageal reflux disease) Generalized headaches Back pain Arthritis Surgical History S/P placement of nerve stimulator History of esophagogastroduodenoscopy (EGD) (03/26/25) Mediastinal mass (11/08/23) History of mandibular surgery S/P cervical spinal fusion Hx of cervical spine surgery Hx of endoscopy Hx of colonoscopy History of salpingo-oophorectomy History of laparoscopy Hx of arthroscopy Hx of tubal ligation Hx of hysterectomy, total Hx of shoulder surgery Hx of knee surgery Family History Father Heart disease Cancer Prostate cancer Mother Dementia Congestive heart failure Social History Household Members: Spouse Housing: House Are you a primary career services representative to a significant other at home: No Do you presently have visiting nurse or other home services: No Alcohol intake: current Alcohol intake frequency: holidays/special occasions only Comment: COUNTS CORRECT Patient Tobacco Use Status: Current everyday Tobacco user Tobacco use type: Cigarette Cigarettes Per Day: 2 Years Smoked: 26 e-Cigarette/Vaping Use: Never Used Second Hand Smoke Exposure: No service: No Current occupational status: disabled Current occupational exposures/hazards: No Cognitive needs: No Hearing needs: No Vision needs: No Review of Systems Const All systems reviewed & are unremarkable except as noted in HPI and below Physical Exam General: Appears afebrile. Alert and oriented. Mood and affect appropriate. Follows and participates in conversation appropriately. Respiratory effort is unlabored. No cough. Able to transition from sit to stand unassisted. Ambulates with bilaterally normal heel strike and toe off. Back/Spine/Pelvis Other: Incisional sites are clean, dry, intact. No pathological discharge, redness, swelling, erythema or tenderness. Lise intact. Dressing changed in clinic. Bacitracin ointment was applied to both wounds. Tegaderm dressing was applied. Patient is wearing abdominal binder. Cervical Spine: cervical ROM normal, Cervical spine scars present and No Cervical spine tenderness Thoracic/Lumbar Spine: thoracic and lumbar spine normal to inspection, Thoracic/lumbar spine scar(s), pain with thoraco-lumbar ROM, thoraco-lumbar ROM limited, No thoracic spinal tenderness and No lumbar spinal tenderness Results Reviewed Results Reviewed: 03/17/25 MRI lumbar spine Findings: Conus terminates at L1/L2 level. Unremarkable visualized cord, conus medullaris and cauda equina. Multilevel disc dehydration and severe L5/S1 disc narrowing not significantly changed from prior study. Posterior annular disc fissures noted at some of the lumbar levels. New mshjogtw-ux-[id number] Modic type 1 changes at L4/L5. Mild Modic type 1 changes at L2/L3. Modic type 2 changes at L5/S1. No acute fracture. Unremarkable paravertebral soft tissues and visualized abdomen. L5/S1: No significant change in grade 1 retrolisthesis, pseudodisc bulge, and wocj-om-berlkliv bilateral neural foraminal stenosis. L4/L5: No significant change in grade 1 retrolisthesis and predominantly right-sided disc bulge versus broad-based disc protrusion associated with aeme-eb-gkbalyza right and mild left neural foraminal stenosis. L3/L4: Grade 1 retrolisthesis and up to 5 mm (AP dimension) left subarticular/neural foraminal (inferior aspect) disc herniation associated with rwbb-rc-sksrnbux left neural foraminal and mild left subarticular recess stenosis as well as mild right neural foraminal compromise as before. L2/L3: New small left central disc herniation without significant central canal compromise. Grade 1 retrolisthesis as before. L1/L2: Nonprogressive small left central disc protrusion without significant central canal compromise as before. T12/L1: No significant central canal or neural foraminal stenosis. IMPRESSION: No evidence of progressive central canal, lateral recess, neural foraminal stenosis with mostly chronic changes as described above 04/10/2024 MRI OF THE THORACIC SPINE WITHOUT CONTRAST MRI OF THE LUMBAR SPINE WITHOUT CONTRAST CLINICAL INFORMATION: Chronic pain syndrome. Postlaminectomy syndrome. Bilateral lower extremity weakness and numbness feeling 6 months of conservative treatment. COMPARISON: Thoracic spine MRI September 08, 2021. TECHNIQUE: Multiplanar multisequence MR imaging of the thoracic and lumbar spine obtained without contrast. FINDINGS: THORACIC SPINE MRI: There are 12 rib bearing thoracic type vertebral bodies. Mild rightward convex sclerotic curvature of the upper thoracic spine. Thoracic alignment is otherwise maintained. There is multilevel degenerative disc disease and hypertrophic facet arthropathy throughout the thoracic spine that remains similar to the September 08, 2021 thoracic spine MRI. Small paracentral disc protrusions continue to mildly narrow the central canal at the T6-T7, T7-T8, and T8-T9 levels. There is no high-grade foraminal stenosis within the thoracic spine. There are partially imaged postoperative changes following ACDF at C6-C7. There is no thoracic cord compression and there are no thoracic cord signal changes when accounting for artifact. LUMBAR SPINE MRI: There are 5 nonrib-bearing lumbar-type vertebral bodies. S1 is lumbarized, showing rudimentary disc with S2. Grade 1 retrolisthesis of L2 on L3. There is severe disc line loss at L5-S1 and there is mild disc volume loss at the remaining lumbar levels. There is disc desiccation at all lumbar levels. There are Modic type II endplate signal changes at L5-S1. Modic type I endplate signal changes at L4-L5. No additional bone marrow edema. No acute fractures. Conus terminates at the L1-L2 level. There is bilateral perinephric stranding. L1-L2: A small shallow left paracentral disc protrusion minimally indents the ventral thecal sac without central canal stenosis. There is no foraminal stenosis. L2-L3: Grade 1 retrolisthesis. Shallow left paracentral disc protrusion minimally indents the ventral thecal sac. No foraminal stenosis. L3-L4: There is a left paracentral/left lateral disc protrusion that contacts the traversing left L4 nerve root within the left subarticular zone and results in xhnr-jm-phdkzzun left-sided foraminal stenosis without exiting nerve root compression. No central canal and no right foraminal stenosis. L4-L5: There is a large right foraminal/extraforaminal disc protrusion that results in moderate to severe right-sided foraminal stenosis and mass effect on the foraminal and extra foraminal segments of the exiting right L4 nerve root. Left lateral disc osteophyte results in moderate left-sided foraminal stenosis and mass effect on the exiting left L4 nerve root at the left foraminal/extraforaminal junction. There is no central canal stenosis. L5-S1: Shallow disc protrusion minimally indents the ventral thecal sac. Disc osteophyte and advanced facet arthropathy result in moderate to severe bilateral foraminal stenosis with compression of the exiting L5 nerve roots bilaterally. IMPRESSION: * Mild to moderate thoracic spondylosis. No severe central canal stenosis and no severe foraminal stenosis within the thoracic spine. There are partially imaged postoperative changes following ACDF at C6-C7. * At L3-L4, there is a left paracentral/left lateral disc protrusion that contacts the traversing left L4 nerve root within the left subarticular zone and results in opkg-dx-ldahpawi left-sided foraminal stenosis without exiting nerve root compression. * At L4-L5, there is a large right foraminal/extraforaminal disc protrusion that results in moderate to severe right-sided foraminal stenosis and mass effect on the foraminal and extra foraminal segments of the exiting right L4 nerve root. Left lateral disc osteophyte results in moderate left-sided foraminal stenosis and mass effect on the exiting left L4 nerve root at the left foraminal/extraforaminal junction. * At L5-S1, multifactorial degenerative changes result in moderate to severe bilateral foraminal stenosis with compression of the exiting L5 nerve roots bilaterally. * S1 shares a rudimentary disc with S2. 02/01/2024 XR/XR lumbar spine 2-3V FINDINGS: Mild dextroscoliosis of the lumbar spine. Surgical clips in the pelvis. Facet arthritis in the lower lumbar spine. Moderate multilevel lumbar spondylosis with moderate loss of disc space height at L2-L3, L3-L4, L4-L5 and marked loss of disc space at L5-S1. IMPRESSION: Moderate multilevel lumbar spondylosis. 09/08/2021 MRI Thoracic Assessment & Plan Assessment & Plan (1) Lumbar radiculopathy: Code(s): M54.16 - Radiculopathy, lumbar region Category: Medical (2) Muscle weakness of proximal extremity: Code(s): M62.81 - Muscle weakness (generalized) Category: Medical (3) Lumbar spondylosis: Code(s): M47.816 - Spondylosis without myelopathy or radiculopathy, lumbar region Category: Medical (4) Numbness and tingling of left leg: Code(s): R20.0 - Anesthesia of skin; R20.2 - Paresthesia of skin Category: Medical (5) Chronic pain syndrome: Code(s): G89.4 - Chronic pain syndrome Category: Medical (6) Post laminectomy syndrome: Code(s): M96.1 - Postlaminectomy syndrome, not elsewhere classified Category: Medical Plan The plan includes managing postoperative pain and monitoring the function of the spinal cord stimulator. Adjustments to the stimulator will be made after staple removal, scheduled for Sunday. The patient is advised to continue using prescribed pain medication as needed, with a recommendation to take half a pill of Vicodin if necessary. For constipation, the patient is advised to use Senokot, Maalox, or Colace to manage symptoms. Follow-up is scheduled for Sunday to assess the surgical site and make necessary adjustments to the spinal cord stimulator with Nev[employer] rep team. Patient was informed and verbally consented to the use of an ambient scribe for clinic note documentation during this visit. Patient Instructions: - Continue prescribed pain medication as needed, consider taking half a pill if necessary - Use Senokot, Maalox, or Colace to manage constipation - Avoid showering until lise are removed. Continue wearing abdominal binder. - Follow up on Sunday for staple removal and stimulator program adjustment with [employer] customer support representative Coding Level of Care Code Est Pt Level 3 (56203) Complex EM visit Add On G2211 Diagnoses Lumbar radiculopathy M54.16 Muscle weakness of proximal extremity M62.81 Lumbar spondylosis M47.816 Numbness and tingling of left leg R20.0; R20.2 Chronic pain syndrome G89.4 Post laminectomy syndrome M96.1
[2025-06-09 09:41] VITALS: BP 194/101; PULSE 73; O2SAT 100; BMI 39.1
[2025-06-09 09:42] VITALS: BP 159/84
--- OUTSIDE RECORDS SUMMARY | 2025-06-09 10:35 | XMS_ITS | Clinical Summary ---
Author Organization [employer] [facility] ity Address [address] [place] [address] Care Team Providers Care Food Assembler Kitchen Name Role Phone Amrik Mendoza MD Primary Care Provider Surgical History Surgery Date Site/Laterality Comments OTHER SURGICAL HISTORY PROCEDURE: AL OSTEOTOMY SPINE PST/PSTLAT APPR 1 VRT SGM CRV; COMMENT: surgery X 2 OTHER SURGICAL HISTORY 1993 PROCEDURE: HISTORICAL TOTAL HYSTERECTOMY W/O BSO; COMMENT: left ovary TUBAL LIGATION PROCEDURE: HISTORICAL TUBAL LIGATION OTHER SURGICAL HISTORY 1999 PROCEDURE: AL ARTHROSCOPY TEMPOROMANDIBULAR JOINT SURGICAL; COMMENT: left SALPINGOOPHORECTOMY 02/08/11 PROCEDURE: AL LAPAROSCOPY W/RMVL ADNEXAL STRUCTURES; COMMENT: Serous cystadenoma [...] Health Maintenance Due Date Last Done Comments Colorectal Cancer Screening: Colonoscopy 1965 Pneumococcal Vaccine: 50+ Years (1 of 2 - PCV) 12/29/1982 Zoster Vaccines (1 of 2) 12/29/2013 Breast Cancer Screening 05/18/2019 05/18/2017 Cholesterol Screening (Lipid Panel) 07/30/2022 HIV Screening 07/30/2022 Hepatitis C Screening [...] Recently Relevant to Health Maintenance Care Teams Food Assembler Kitchen Relationship Specialty Start Date End Date Amrik Mendoza MD [address] [place] [address] Dr Tra MA PCP - General 10/23/23
== END 2025-06-09 10:04 | disposition home or self-care (01) ==
LOC: HO.PMC 09:33
PROVIDERS: PCP Family Medicine; Visit Provider Nurse Practitioner Family
DX: M54.16 Radiculopathy, lumbar region (principal); M62.81 Muscle weakness (generalized); M47.816 Spondylosis without myelopathy or radiculopathy, lumbar region; R20.0 Anesthesia of skin; R20.2 Paresthesia of skin; G89.4 Chronic pain syndrome; M96.1 Postlaminectomy syndrome, not elsewhere classified
CPT/HCPCS: 99213

== ENCOUNTER 2025-06-12 11:01 | Outpatient (AMB) | payer OTHER, SELFPAY ==
--- NOTE | 2025-06-12 11:07 | MHC.OFFVIS ---
Vital Signs 06/12/25 11:08 Height 5 ft Weight 200 lb BMI 39.1 BP 153/72 H Blood Pressure Location Rt brachial Position Sitting Respiration 16 Pulse 86 Pulse Source Pulse Oximeter Pulse Oximetry (%) 95 Oxygen Delivery Method Room Air Intake Visit Reasons: S/p Nevro SCS Implant 05/29/25 (2nd Visit) Pre Billing Specialist Required: No Accompanied by: Self / Same As Patient Allergies Seasonal Allergies Allergy (Severe, Verified 06/12/25 11:08) Itchy Eyes lisinopril Adverse Reaction (Severe, Verified 06/12/25 11:08) Cough pregabalin (From Lyrica) Adverse Reaction (Severe, Verified 06/12/25 11:08) Shortness of Breath celecoxib (From Celebrex) Adverse Reaction (Intermediate, Verified 06/12/25 11:08) Hypertension varenicline (From Chantix) Adverse Reaction (Intermediate, Verified 06/12/25 11:08) Depression HPI Comments Details: The patient is a 59-year-old female presenting for post-surgical follow-up, 2 weeks status post Nevro spinal cord stimulator implant with Dr. Baltazar. The patient underwent surgery recently and is currently in the recovery phase. The incision site is healing well, with no signs of infection noted during the examination. The patient is advised to keep the binder on to maintain the position of the surgical site. Denies any untoward effects of the procedure. Pain management is a significant concern, with the patient experiencing discomfort post-surgery. The patient had to go a night without pain medication due to insurance issues, which was resolved by contacting the pharmacy. [employer] employment program representative available today to adjust the stimulation settings to address her pain. - Pain is present post-surgery, requiring management. - Experienced a night without pain medication due to insurance issues. - Affect: Pain impacts daily comfort and recovery. - Analgesia: Pain medication was interrupted due to insurance issues, but resolved. [facility] Medical History Difficulty urinating Empty sella turcica Polyarthralgia Raynauds phenomenon DDD (degenerative disc disease), cervical Mediastinal mass Asthma Chronic pain syndrome Costochondritis Thrombocytosis TMJ (temporomandibular joint syndrome) Numbness and tingling of left leg Tremors of nervous system Lyme disease Hypersomnia Snoring Hyperlipidemia HTN (hypertension) GERD (gastroesophageal reflux disease) Generalized headaches Back pain Arthritis Surgical History S/P placement of nerve stimulator History of esophagogastroduodenoscopy (EGD) (03/26/25) Mediastinal mass (11/08/23) History of mandibular surgery S/P cervical spinal fusion Hx of cervical spine surgery Hx of endoscopy Hx of colonoscopy History of salpingo-oophorectomy History of laparoscopy Hx of arthroscopy Hx of tubal ligation Hx of hysterectomy, total Hx of shoulder surgery Hx of knee surgery Family History Father Heart disease Cancer Prostate cancer Mother Dementia Congestive heart failure Social History Household Members: Spouse Housing: House Are you a primary rn homecare to a significant other at home: No Do you presently have visiting nurse or other home services: No Alcohol intake: current Alcohol intake frequency: holidays/special occasions only Comment: COUNTS CORRECT Patient Tobacco Use Status: Current everyday Tobacco user Tobacco use type: Cigarette Cigarettes Per Day: 2 Years Smoked: 26 e-Cigarette/Vaping Use: Never Used Second Hand Smoke Exposure: No service: No Current occupational status: disabled Current occupational exposures/hazards: No Cognitive needs: No Hearing needs: No Vision needs: No Review of Systems Const Details: - Integumentary: Reports incision site healing well, no signs of infection. Physical Exam Exam Exam: General: awake, alert, oriented. Answers questions appropriately. Fully engaged in examination. Skin: warm, dry, intact HEENT: Normocephalic. Hearing intact. Cardiac: External chest normal in appearance. Respiratory: No cough, audible wheezing or stridor. Abdomen: without gross distension. MS: No obvious swelling or deformities. Neurological: Oriented to person, place, time and situation. Thought process intact. Psychiatric: Appropriate mood and affect. Good judgment and insight. Nevro SCS incisions: Area was cleansed with chloraprep, dressings taken down, insertion sites was visualized and without redness/irritation/drainage. [place] removed, incisions well approximated and appeared to be healing well. Area cleansed again with chloraprep, bacitracin dressing was applied and covered with tegaderm. Patient tolerated well. Vital Signs: Last Vital Signs Pulse 86 06/12/25 11:08 Resp 16 06/12/25 11:08 BP 153/72 H 06/12/25 11:08 Pulse Ox 95 06/12/25 11:08 Oxygen Delivery Method Room Air 06/12/25 11:08 BMI result Body Mass Index 39.1 Results Reviewed Results Reviewed: 03/17/25 MRI lumbar spine Findings: Conus terminates at L1/L2 level. Unremarkable visualized cord, conus medullaris and cauda equina. Multilevel disc dehydration and severe L5/S1 disc narrowing not significantly changed from prior study. Posterior annular disc fissures noted at some of the lumbar levels. New wfjpoxre-yf-qgbkav Modic type 1 changes at L4/L5. Mild Modic type 1 changes at L2/L3. Modic type 2 changes at L5/S1. No acute fracture. Unremarkable paravertebral soft tissues and visualized abdomen. L5/S1: No significant change in grade 1 retrolisthesis, pseudodisc bulge, and mxat-ai-agxjggeg bilateral neural foraminal stenosis. L4/L5: No significant change in grade 1 retrolisthesis and predominantly right-sided disc bulge versus broad-based disc protrusion associated with iedg-dt-fdxzeimn right and mild left neural foraminal stenosis. L3/L4: Grade 1 retrolisthesis and up to 5 mm (AP dimension) left subarticular/neural foraminal (inferior aspect) disc herniation associated with zoxv-si-nalasqkj left neural foraminal and mild left subarticular recess stenosis as well as mild right neural foraminal compromise as before. L2/L3: New small left central disc herniation without significant central canal compromise. Grade 1 retrolisthesis as before. L1/L2: Nonprogressive small left central disc protrusion without significant central canal compromise as before. T12/L1: No significant central canal or neural foraminal stenosis. IMPRESSION: No evidence of progressive central canal, lateral recess, neural foraminal stenosis with mostly chronic changes as described above 04/10/2024 MRI OF THE THORACIC SPINE WITHOUT CONTRAST MRI OF THE LUMBAR SPINE WITHOUT CONTRAST CLINICAL INFORMATION: Chronic pain syndrome. Postlaminectomy syndrome. Bilateral lower extremity weakness and numbness feeling 6 months of conservative treatment. COMPARISON: Thoracic spine MRI September 08, 2021. TECHNIQUE: Multiplanar multisequence MR imaging of the thoracic and lumbar spine obtained without contrast. FINDINGS: THORACIC SPINE MRI: There are 12 rib bearing thoracic type vertebral bodies. Mild rightward convex sclerotic curvature of the upper thoracic spine. Thoracic alignment is otherwise maintained. There is multilevel degenerative disc disease and hypertrophic facet arthropathy throughout the thoracic spine that remains similar to the September 08, 2021 thoracic spine MRI. Small paracentral disc protrusions continue to mildly narrow the central canal at the T6-T7, T7-T8, and T8-T9 levels. There is no high-grade foraminal stenosis within the thoracic spine. There are partially imaged postoperative changes following ACDF at C6-C7. There is no thoracic cord compression and there are no thoracic cord signal changes when accounting for artifact. LUMBAR SPINE MRI: There are 5 nonrib-bearing lumbar-type vertebral bodies. S1 is lumbarized, showing rudimentary disc with S2. Grade 1 retrolisthesis of L2 on L3. There is severe disc line loss at L5-S1 and there is mild disc volume loss at the remaining lumbar levels. There is disc desiccation at all lumbar levels. There are Modic type II endplate signal changes at L5-S1. Modic type I endplate signal changes at L4-L5. No additional bone marrow edema. No acute fractures. Conus terminates at the L1-L2 level. There is bilateral perinephric stranding. L1-L2: A small shallow left paracentral disc protrusion minimally indents the ventral thecal sac without central canal stenosis. There is no foraminal stenosis. L2-L3: Grade 1 retrolisthesis. Shallow left paracentral disc protrusion minimally indents the ventral thecal sac. No foraminal stenosis. L3-L4: There is a left paracentral/left lateral disc protrusion that contacts the traversing left L4 nerve root within the left subarticular zone and results in plls-mn-gkazszeb left-sided foraminal stenosis without exiting nerve root compression. No central canal and no right foraminal stenosis. L4-L5: There is a large right foraminal/extraforaminal disc protrusion that results in moderate to severe right-sided foraminal stenosis and mass effect on the foraminal and extra foraminal segments of the exiting right L4 nerve root. Left lateral disc osteophyte results in moderate left-sided foraminal stenosis and mass effect on the exiting left L4 nerve root at the left foraminal/extraforaminal junction. There is no central canal stenosis. L5-S1: Shallow disc protrusion minimally indents the ventral thecal sac. Disc osteophyte and advanced facet arthropathy result in moderate to severe bilateral foraminal stenosis with compression of the exiting L5 nerve roots bilaterally. IMPRESSION: * Mild to moderate thoracic spondylosis. No severe central canal stenosis and no severe foraminal stenosis within the thoracic spine. There are partially imaged postoperative changes following ACDF at C6-C7. * At L3-L4, there is a left paracentral/left lateral disc protrusion that contacts the traversing left L4 nerve root within the left subarticular zone and results in ilwh-wc-ecbkccsp left-sided foraminal stenosis without exiting nerve root compression. * At L4-L5, there is a large right foraminal/extraforaminal disc protrusion that results in moderate to severe right-sided foraminal stenosis and mass effect on the foraminal and extra foraminal segments of the exiting right L4 nerve root. Left lateral disc osteophyte results in moderate left-sided foraminal stenosis and mass effect on the exiting left L4 nerve root at the left foraminal/extraforaminal junction. * At L5-S1, multifactorial degenerative changes result in moderate to severe bilateral foraminal stenosis with compression of the exiting L5 nerve roots bilaterally. * S1 shares a rudimentary disc with S2. 02/01/2024 XR/XR lumbar spine 2-3V FINDINGS: Mild dextroscoliosis of the lumbar spine. Surgical clips in the pelvis. Facet arthritis in the lower lumbar spine. Moderate multilevel lumbar spondylosis with moderate loss of disc space height at L2-L3, L3-L4, L4-L5 and marked loss of disc space at L5-S1. IMPRESSION: Moderate multilevel lumbar spondylosis. 09/08/2021 MRI Thoracic Assessment & Plan Assessment & Plan (1) Lumbar radiculopathy: Code(s): M54.16 - Radiculopathy, lumbar region Category: Medical (2) Muscle weakness of proximal extremity: Code(s): M62.81 - Muscle weakness (generalized) Category: Medical (3) Lumbar spondylosis: Code(s): M47.816 - Spondylosis without myelopathy or radiculopathy, lumbar region Category: Medical (4) Numbness and tingling of left leg: Code(s): R20.0 - Anesthesia of skin; R20.2 - Paresthesia of skin Category: Medical (5) Chronic pain syndrome: Code(s): G89.4 - Chronic pain syndrome Category: Medical (6) Post laminectomy syndrome: Code(s): M96.1 - Postlaminectomy syndrome, not elsewhere classified Category: Medical Plan The plan includes continued monitoring of the incision site to ensure proper healing without infection. The patient is advised to maintain the use of the binder to support the surgical site. [facility]. Patient will remain in close contact with them to continue adjustments as needed to manage her pain. Patient was informed and verbally consented to the use of an ambient scribe for clinic note documentation during this visit. Patient Instructions: - Monitor the incision site for any signs of infection. - Keep the binder on to support the surgical site. Coding Level of Care Code Est Pt Level 3 (31451) Complex EM visit Add On G2211 Diagnoses Lumbar radiculopathy M54.16 Muscle weakness of proximal extremity M62.81 Lumbar spondylosis M47.816 Numbness and tingling of left leg R20.0; R20.2 Chronic pain syndrome G89.4 Post laminectomy syndrome M96.1
[2025-06-12 11:08] VITALS: BP 153/72; PULSE 86; RESP 16; O2SAT 95; BMI 39.1
--- OUTSIDE RECORDS SUMMARY | 2025-06-12 13:43 | XMS_ITS | Clinical Summary ---
Author Organization [employer] [facility] ity Address [address] [place] [address] Care Team Providers Care Strip Cutter Name Role Phone Amrik Mendoza MD Primary Care Provider Surgical History Surgery Date Site/Laterality Comments OTHER SURGICAL HISTORY PROCEDURE: [place] OSTEOTOMY SPINE PST/PSTLAT APPR 1 VRT SGM CRV; COMMENT: surgery X 2 OTHER SURGICAL HISTORY 1993 PROCEDURE: HISTORICAL TOTAL HYSTERECTOMY W/O BSO; COMMENT: left ovary TUBAL LIGATION PROCEDURE: HISTORICAL TUBAL LIGATION OTHER SURGICAL HISTORY 1999 PROCEDURE: [place] ARTHROSCOPY TEMPOROMANDIBULAR JOINT SURGICAL; COMMENT: left SALPINGOOPHORECTOMY 02/08/11 PROCEDURE: [place] LAPAROSCOPY W/RMVL ADNEXAL STRUCTURES; COMMENT: Serous cystadenoma [...] Years (1 of 2 - PCV) 12/29/1982 RSV Immunization Adult Patients (1 - Risk 50-74 years 1-dose series) 12/29/2013 Zoster Vaccines (1 of 2) 12/29/2013 Breast Cancer Screening 05/18/2019 05/18/2017 Cholesterol Screening (Lipid Panel) 07/30/2022 HIV Screening 07/30/2022 Hepatitis C Screening 07/30/2022 Social Influencers of Health Screening 07/30/2022 Hypertension/CHF/CAD Annual BMP Blood Test 08/06/2022 DTaP,Tdap,and Td Vaccines (3 - Td or Tdap) 10/16/2022 10/16/2012, 11/15/2001 Depression Screening 08/27/2024 COVID-19 Vaccine (3 - [...] Recently Relevant to Health Maintenance Care Teams Strip Cutter Relationship Specialty Start Date End Date Amrik Mendoza MD [address] [place] [address] Dr Tra MA PCP - General 10/23/23
== END 2025-06-12 12:01 | disposition home or self-care (01) ==
LOC: HO.PMC 11:02
PROVIDERS: PCP Family Medicine; Visit Provider Registered Nurse Emergency
DX: M54.16 Radiculopathy, lumbar region (principal); M62.81 Muscle weakness (generalized); M47.816 Spondylosis without myelopathy or radiculopathy, lumbar region; R20.0 Anesthesia of skin; R20.2 Paresthesia of skin; G89.4 Chronic pain syndrome; M96.1 Postlaminectomy syndrome, not elsewhere classified
CPT/HCPCS: 99213

== ENCOUNTER 2025-07-15 08:57 | Outpatient (AMB) | payer OTHER, SELFPAY ==
[2025-07-15 09:03] VITALS: BP 146/88; PULSE 82; O2SAT 98; BMI 40.4
--- NOTE | 2025-07-15 09:03 | MHC.OFFVIS ---
Vital Signs 07/15/25 09:03 Height 5 ft Weight 207 lb 2 oz BMI 40.4 BP 146/88 H Blood Pressure Location Rt brachial Position Sitting Pulse 82 Pulse Source Pulse Oximeter Pulse Oximetry (%) 98 Oxygen Delivery Method Room Air Intake Visit Reasons: Dyspnea Allergies Seasonal Allergies Allergy (Severe, Verified 07/15/25 09:07) Itchy Eyes lisinopril Adverse Reaction (Severe, Verified 07/15/25 09:07) Cough pregabalin (From Lyrica) Adverse Reaction (Severe, Verified 07/15/25 09:07) Shortness of Breath celecoxib (From Celebrex) Adverse Reaction (Intermediate, Verified 07/15/25 09:07) Hypertension varenicline (From Chantix) Adverse Reaction (Intermediate, Verified 07/15/25 09:07) Depression HPI HPI Dyspnea: Details: Lety is a pleasant 59 year old female, active smoker with less than 10 pack year history, with underlying history of asthma, diagnosed as an adult and GERD, controlled on omeprazole. She was lost to follow up last office visit 02/2024 and presents to reestablish care. She is s/p left VATS with excision anterior mediastinal mass/thymoma, on 11/10/[address] Alex which was negative for carcinoma. Since this procedure she report left sided chest pain which she describes as nerve pain , that waxes and wanes, occasionally wrapping around the chest or radiating to the back. She has not been evaluated further for this. She reports good control of respiratory symptoms with the use of Wixela, using Albuterol MDI 1-2 times per week with relief of acute symptoms. She endorses dyspnea which she attributes to deconditioning as she has had significant limitations due to lumbar pain. She recently underwent lumbar procedure, Nevro SCS with 40% improvement in discomfort and is motivated to increase activity. She denies any visits to urgent care or hospitalizations related to respiratory distress since the last visit. Of note, she has reports ongoing issues with dysphagia and under the care of GI with plan for eosphageal dilation in the near future. [facility] Medical History (Updated 07/15/25 @ 09:26 by Maritza Van NP) Difficulty urinating Empty sella turcica Polyarthralgia Raynauds phenomenon DDD (degenerative disc disease), cervical Mediastinal mass Asthma Chronic pain syndrome Costochondritis Thrombocytosis TMJ (temporomandibular joint syndrome) Numbness and tingling of left leg Tremors of nervous system Lyme disease Hypersomnia Snoring Hyperlipidemia HTN (hypertension) GERD (gastroesophageal reflux disease) Generalized headaches Back pain Arthritis Surgical History (Updated 07/15/25 @ 09:53 by Maritza Van NP) S/P placement of nerve stimulator History of esophagogastroduodenoscopy (EGD) (03/26/25) Mediastinal mass (11/08/23) History of mandibular surgery S/P cervical spinal fusion Hx of cervical spine surgery Hx of endoscopy Hx of colonoscopy History of salpingo-oophorectomy History of laparoscopy Hx of arthroscopy Hx of tubal ligation Hx of hysterectomy, total Hx of shoulder surgery Hx of knee surgery Family History Father Heart disease Cancer Prostate cancer Mother Dementia Congestive heart failure Social History Household Members: Spouse Housing: House Are you a primary reproductive healthcare assistant to a significant other at home: No Do you presently have visiting nurse or other home services: No Alcohol intake: current Alcohol intake frequency: holidays/special occasions only Comment: COUNTS CORRECT Patient Tobacco Use Status: Current everyday Tobacco user Tobacco use type: Cigarette Cigarettes Per Day: 2 Years Smoked: 26 e-Cigarette/Vaping Use: Never Used Second Hand Smoke Exposure: No service: No Current occupational status: disabled Current occupational exposures/hazards: No Cognitive needs: No Hearing needs: No Vision needs: No Review of Systems Const Denies chills, Denies excessive sweating, Denies fever(s), Denies headache(s) and Denies night sweats Eyes Denies irritation and Denies itchy eyes ENT Reports Normal hearing present, Denies headache(s), Denies nasal congestion, Denies nasal discharge and Denies post nasal drip Card Denies chest pain, Denies chest pain at rest, Denies chest pain with activity, Denies claudication, Denies leg edema, Denies orthopnea and Denies paroxysmal nocturnal dyspnea Resp Denies chest congestion, Denies excessive phlegm production, Denies pain on inspiration, Denies pain with cough, Denies stridor and Denies wheezing Musc Denies myalgias Neuro Reports Normal hearing present and Denies headache(s) Endo Denies excessive sweating Yaw/Lymph Denies lymphadenopathy Aller/Immun Denies itchy eyes, Denies seasonal rhinorrhea and Denies wheezing Physical Exam Vital Signs: Last Vital Signs Pulse 82 07/15/25 09:03 BP 146/88 H 07/15/25 09:03 Pulse Ox 98 07/15/25 09:03 Oxygen Delivery Method Room Air 07/15/25 09:03 BMI result Body Mass Index 40.4 Const General: cooperative, healthy appearing, comfortable, no acute distress, well developed and alert Nutritional Appearance: obese Orientation/consciousness: patient oriented x3 Limitations: no limitations HEENT Head: Yes normal to inspection, Yes normocephalic and Yes atraumatic Ears: hearing grossly normal bilaterally and external ears normal Eyes General: appearance normal, both eyes and all related structures Eyelids: Yes eyelids normal Sclerae: sclerae normal EOM: EOMs intact bilaterally Neck Neck: Yes normal visual inspection and Yes no lymphadenopathy Lymphatic: no lymphadenopathy noted Chest Chest palpation & inspection: normal inspection of the chest Resp Effort & Inspection: normal respiratory effort, able to speak in complete sentences, no audible wheezes, no cough, no stridor, not tachypneic, no tripod positioning and no use of accessory muscles Auscultation: clear to auscultation bilaterally Cardio Jugular venous distension: no JVD Rate: regular rate Rhythm: regular rhythm Skin Other: warm, dry General skin exam: no rashes or lesions noted Neuro General: patient oriented x3 Cranial nerves: Yes Normal hearing present Cognition (Neuro): normal cognition Gait exam (Neuro): Normal gait present Extrem General: Yes normal to inspection, Yes capillary refill normal, Yes no clubbing, cyanosis or edema and Yes no pedal edema Psych Appearance: grossly normal and well kempt Speech and movement: Normal speech and movement present and Clear speech present Affect: normal affect Attitude: cooperative Thought process: Normal thought process present Thought content: Normal thought content present Insight: Good insight present (Psych) Judgement: Good judgement present (Psych) Assessment & Plan Assessment & Plan (1) Asthma: Code(s): J45.909 - Unspecified asthma, uncomplicated Category: Medical (2) GERD (gastroesophageal reflux disease): Code(s): K21.9 - Gastro-esophageal reflux disease without esophagitis Category: Medical (3) Personal history of tobacco use: Code(s): Z87.891 - Personal history of nicotine dependence Category: Social Hx (4) Dysphagia: Code(s): R13.10 - Dysphagia, unspecified Category: Medical (5) Pleuritic pain: Code(s): R07.81 - Pleurodynia Category: Medical (6) Status post video-assisted thoracoscopic surgery (VATS): Code(s): Z98.890 - Other specified postprocedural states Category: Surgical Plan At this time, patient reports good control of respiratory symptoms on current regimen, advised to continue Wixela and Albuterol MDI PRN. She is aware to call if symptoms change. Patient reports ongoing pleuritic discomfort vs post thoracotomy pain, will send for chest CT for further evaluation. If no significant findings, advised patient to discuss with pain management. All questions were answered and patient is in agreement of plan. Will follow up in 3 months or sooner if needed. Orders: Orders CT chest wo IV con Today R07.81 - Pleurodynia, Z98.890 - Other specified postprocedural states Coding Level of Care Code Est Pt Level 4 (85943) Diagnoses Asthma J45.909 GERD (gastroesophageal reflux disease) K21.9 Personal history of tobacco use Z87.891 Dysphagia R13.10 Pleuritic pain R07.81 Status post video-assisted thoracoscopic surgery (VATS) Z98.890
--- OUTSIDE RECORDS SUMMARY | 2025-07-15 16:40 | XMS_ITS | Clinical Summary ---
Author Organization [employer] [facility] ity Address [address] [place] [address] Care Team Providers Care Food And Beverage Operations Manager Name Role Phone Amrik Mendoza MD Primary Care Provider Surgical History Surgery Date Site/Laterality Comments OTHER SURGICAL HISTORY PROCEDURE: [place] OSTEOTOMY SPINE PST/PSTLAT APPR 1 VRT SGM CRV; COMMENT: surgery X 2 OTHER SURGICAL HISTORY 1993 PROCEDURE: HISTORICAL TOTAL HYSTERECTOMY W/O BSO; COMMENT: left ovary TUBAL LIGATION PROCEDURE: HISTORICAL TUBAL LIGATION OTHER SURGICAL HISTORY 1999 PROCEDURE: [place] ARTHROSCOPY TEMPOROMANDIBULAR JOINT SURGICAL; COMMENT: left SALPINGOOPHORECTOMY 02/08/11 PROCEDURE: [place] LAPAROSCOPY W/RMVL ADNEXAL STRUCTURES; COMMENT: Serous cystadenoma [...] % Breast cancer risk category Low (<15%) aLlit GONZALES IMG XR PROCEDURES Final Result from Last 3 Months or Most Recently Relevant to Health Maintenance Care Teams Food And Beverage Operations Manager Relationship Specialty Start Date End Date Amrik Mendoza MD [address] [place] [address] Dr Tra MA PCP - General 10/23/23
== END 2025-07-15 09:41 | disposition home or self-care (01) ==
LOC: HO.HPSW 08:58
PROVIDERS: PCP Family Medicine; Visit Provider Nurse Practitioner Family
DX: J45.909 Unspecified asthma, uncomplicated (principal); K21.9 Gastro-esophageal reflux disease without esophagitis; Z87.891 Personal history of nicotine dependence; R13.10 Dysphagia, unspecified; R07.81 Pleurodynia; Z98.890 Other specified postprocedural states
CPT/HCPCS: 99214

== ENCOUNTER 2025-07-20 09:32 | Outpatient (AMB) | payer OTHER, SELFPAY ==
[2025-07-20 09:34] VITALS: BP 142/74; PULSE 68; TEMP 36.7; O2SAT 98; BMI 40.7
--- NOTE | 2025-07-20 09:34 | A.OFFPC_ITS ---
Vital Signs 07/20/25 09:34 Height 5 ft Weight 208 lb 4 oz BMI 40.7 BP 142/74 H Blood Pressure Location Rt brachial Position Sitting Pulse 68 Pulse Source Pulse Oximeter Temp 98.0 F Temp Source Temporal Artery Scan Pulse Oximetry (%) 98 Oxygen Delivery Method Room Air Intake Visit Reasons: f/u HTN, chronic conditions Allergies Seasonal Allergies Allergy (Severe, Verified 07/20/25 09:35) Itchy Eyes lisinopril Adverse Reaction (Severe, Verified 07/20/25 09:35) Cough pregabalin (From Lyrica) Adverse Reaction (Severe, Verified 07/20/25 09:35) Shortness of Breath celecoxib (From Celebrex) Adverse Reaction (Intermediate, Verified 07/20/25 09:35) Hypertension varenicline (From Chantix) Adverse Reaction (Intermediate, Verified 07/20/25 09:35) Depression Medication List - Last Reconciled 07/20/25 by Amrik Mendoza MD albuterol sulfate 90 mcg/actuation 2 puffs PO Q6H PRN atorvastatin 40 mg PO BEDTIME 90 days bupropion HCl XL 300 mg PO QAM 90 days buspirone 15 mg (1.5 x 10 mg) PO BID cyclobenzaprine 10 mg PO TID PRN 30 days cyclosporine 0.05% (Restasis) 1 drp ophthalmic (eye) Q12H diltiazem HCl ER 300 mg PO DAILY duloxetine 120 mg PO DAILY fluticasone propion-salmeterol 250-50 mcg/dose (Wixela Inhub) 1 inh inhalation BID lorazepam (Ativan) 1 mg PO DAILY PRN montelukast (Singulair) 10 mg PO QAM 90 days omeprazole 20 mg PO QAM 90 days propranolol ER 60 mg PO BEDTIME sodium chloride 1,000 mg PO BID 30 days telmisartan 80 mg PO QAM 90 days Tobacco use date assessed: 07/20/25 Dental Screening Dental Screen Date: 07/20/25 Did you have a dental visit in the last 12 months?: Yes Did you have a dental problem in the last 6 months where you did not have access to dental care?: No Was dental information given to patient?: Patient has dentist HPI f/u HTN, chronic conditions HPI Details 59 y/o female presents to f/u HTN, chron ic conditions. BP today 142/74, 68p. She is on propranolol 60mg, diltiazem 300mg daily, telmisartan 80mg. Reports some difficulty swallowing. Also reports some dry eyes. Does use drops for her eyes to keep them moisturized. PHQ-9 7, RAFAEL-7 9 today. Notes she has a psychiatrist. HPI Comments History of Present Illness Details Documentation assistance for Amrik Mendoza MD, was provided by Neri French,? It Project Lead on 07/20/2025 at 10:32 AM FOSTER. I, Dr. Mendoza, have read, observed, and verified documentation. ? PFSH Medical History Difficulty urinating Empty sella turcica Polyarthralgia Raynauds phenomenon DDD (degenerative disc disease), cervical Mediastinal mass Asthma Chronic pain syndrome Costochondritis Thrombocytosis TMJ (temporomandibular joint syndrome) Numbness and tingling of left leg Tremors of nervous system Lyme disease Hypersomnia Snoring Hyperlipidemia HTN (hypertension) GERD (gastroesophageal reflux disease) Generalized headaches Back pain Arthritis Surgical History S/P placement of nerve stimulator History of esophagogastroduodenoscopy (EGD) (03/26/25) Mediastinal mass (11/08/23) History of mandibular surgery S/P cervical spinal fusion Hx of cervical spine surgery Hx of endoscopy Hx of colonoscopy History of salpingo-oophorectomy History of laparoscopy Hx of arthroscopy Hx of tubal ligation Hx of hysterectomy, total Hx of shoulder surgery Hx of knee surgery Family History Father Heart disease Cancer Prostate cancer Mother Dementia Congestive heart failure Social History Household Members: Spouse Housing: House Are you a primary career development associate to a significant other at home: No Do you presently have visiting nurse or other home services: No Alcohol intake: current Alcohol intake frequency: holidays/special occasions only Comment: COUNTS CORRECT Patient Tobacco Use Status: Current everyday Tobacco user Tobacco use type: Cigarette Cigarettes Per Day: 2 Years Smoked: 26 e-Cigarette/Vaping Use: Never Used Second Hand Smoke Exposure: No service: No Current occupational status: disabled Current occupational exposures/hazards: No Cognitive needs: No Hearing needs: No Vision needs: No Questionnaire PHQ-9 Over the last 2 weeks, how often have you been bothered by any of the following problems? 1. Little interest or pleasure in doing things: several days 2. Feeling down, depressed, or hopeless: several days 3. Trouble falling or staying asleep, or sleeping too much: not at all 4. Feeling tired or having little energy: nearly every day 5. Poor appetite or overeating: not at all 6. Feeling bad about yourself - or that you are a failure or have let yourself or your family down: several days 7. Trouble concentrating on things, such as reading the newspaper or watching television: several days 8. Moving or speaking so slowly that other people could have noticed. Or the opposite - being so fidgety or restless that you have been moving around a lot more than usual: not at all 9. Thoughts that you would be better off or of hurting yourself in some way: not at all Total score: 7 Depression Screening Interpretation: Positive Depression Screening Follow-up: In treatment Depression Screening Done: Yes Source: Developed by Drs. Celso Blake, Sarah Abreu, Shravan Dominique and colleagues, with an educational allan from [employer]. Thrive Questionnaire Date Thrive assessed: 09/10/24 I am a: Patient What is your living situation today?: I have a steady place to live Within the past 12 months, did the food you bought not last and you didn't have the money to get more?: Never true Within the past 12 months, did you worry whether your food would run out before you got money to buy more?: Never true Do you have trouble paying for medicines?: No Do you have trouble getting transportation to medical appointments?: No Do you have trouble paying your heating and electricity bill?: No Do you have trouble taking care of your child, family member or friend?: No Do you have trouble with day-to-day activities such as bathing, preparing meals, shopping, managing finances, etc.?: Yes Are you currently unemployed and looking for a job?: I choose not to answer this question Are you interested in more education?: No Please select the resources that you would like help with: None Currently or been in a relationship where the following occur: No concerns reported THRIVE Score: 0 AUDIT C Alcohol Use Questionnaire (AUDIT-C) 1. How often do you have a drink containing alcohol?: Monthly or less 2. How many drinks containing alcohol do you have on a typical day when you are drinking?: 1 or 2 3. How often do you have six or more drinks on one occasion?: Never Total Score: 1 RAFAEL-7 AMB Questionnaire RAFAEL-7 Date RAFAEL - 7 assessed: 12/18/24 Feeling nervous, anxious, or on edge: 1 = Several days Not being able to stop or control worryin = Several days Worrying too much about different things: 1 = Several days Trouble relaxin = Nearly every day Being so restless that it is hard to sit still: 0 = Not at all Becoming easily annoyed or irritable: 3 = Nearly every day Feeling afraid as if something awful might happen: 0 = Not at all Total RAFAEL-7 score (0-4 normal; 5-9 mild; 10-14 moderate; 15-21 severe): 9 Source: Developed by Drs. Celso Blake, Sarah Abreu, Shravan Dominique and colleagues, with an educational allan from [employer]. Review of Systems Const Denies chills, Denies fatigue, Denies fever(s), Denies headache(s) and Denies weakness ENT Denies dizziness and Denies headache(s) Card Denies dyspnea Resp Denies cough, Denies dyspnea, Denies wheezing and Denies other (shortness of breath) Musc Denies numbness and Denies tingling Neuro Denies dizziness, Denies headache(s), Denies numbness, Denies tingling and Denies weakness Psych Reports anxiety and Reports depression Endo Denies fatigue Aller/Immun Denies wheezing Physical exam (Primary Care) Vital Signs: Last Vital Signs Temp 98.0 F 07/20/25 09:34 Pulse 68 07/20/25 09:34 BP 142/74 H 07/20/25 09:34 Pulse Ox 98 07/20/25 09:34 Oxygen Delivery Method Room Air 07/20/25 09:34 BMI result Body Mass Index 40.7 Tobacco/Smoking Status: Tobacco use Status Tobacco use date assessed 07/20/25 07/20/25 09:42 Patient Tobacco Use Status Current everyday Tobacco 07/20/25 09:42 Tobacco use type Cigarette 07/20/25 09:42 e-Cigarette/Vaping Use Never Used 07/20/25 09:42 PHQ-9: PHQ-9 Score PHQ-9: Total score 7 07/20/25 09:58 Depression Screening Interpretation: Positive Depression Screening Follow-up: In treatment Thrive Assessment: Date of Thrive Assessment Date Thrive assessed 09/10/24 07/20/25 09:42 Currently or been in a relationship where the following occur: No concerns reported Const General: well developed; No acute distress Nutritional Appearance: well nourished Orientation/consciousness: patient oriented x3 HENMT Head: Yes normocephalic and Yes atraumatic Eyes General: appearance normal, both eyes and all related structures Pupils: Equal, round and reactive pupils present EOM: EOMs intact bilaterally Resp Effort & Inspection: normal respiratory effort Auscultation: clear to auscultation bilaterally Cardio Rate: regular rate Rhythm: regular rhythm Heart sounds: S1 normal heart sound present, S2 normal heart sound present, no gallops, no murmurs and no rubs Neuro General: patient oriented x3 and gait normal Cranial nerves: Yes Equal, round and reactive pupils present Psych Affect: normal affect Coding Level of Care Code Est Pt Level 4 (16989) Diagnoses Primary hypertension I10 Hypertension type: primary hypertension Dysphagia R13.10 Dry mouth and eyes R68.2; H04.123 Anxiety and depression F41.9; F32.A Assessment & Plan Assessment & Plan (1) HTN (hypertension): Code(s): I10 - Essential (primary) hypertension Category: Medical Qualifiers: Hypertension type: primary hypertension Qualified Code(s): I10 - Essential (primary) hypertension Plan: Blood pressure is too high. Goal is less than 140/90 Will increase diltiazem (2) Dysphagia: Code(s): R13.10 - Dysphagia, unspecified Category: Medical Plan: Ongoing dysphagia Patient still feels quite certain that this is caused by Sjogrens syndrome but rheumatology is not convinced that this is the case and has referred her to ENT Has an appointment with ENT in August. (3) Dry mouth and eyes: Code(s): R68.2 - Dry mouth, unspecified; H04.123 - Dry eye syndrome of bilateral lacrimal glands Category: Medical Plan: Patient has significant dry eyes and mouth As above, she feels that this is caused by Sjogren's She has an upcoming appointment with ENT I will give her a script for some eyedrops and a daytime antihistamine to help rule out any allergic causes (4) Anxiety and depression: Code(s): F41.9 - Anxiety disorder, unspecified; F32.A - Depression, unspecified Category: Medical Plan: Ongoing anxiety and depression Continue taking her medications and follow-up with psychiatry as recommended She has had a therapist in the past and I encouraged her to seek a therapist again. Patient agrees. She declines a referral to the nurse navigator to help her find a therapist however. Medications: New ketotifen fumarate 0.025%(0.035%) administer at least 8 hours apart 1 drp ophthalmic (eye) BID PRN 5 mL 3RF allergy symptoms 30 days cetirizine (Allergy Relief (cetirizine)) 10 mg PO DAILY PRN 90 tabs 1RF allergy symptoms 90 days Changed From diltiazem HCl ER 300 mg PO DAILY 90 caps 1RF To diltiazem HCl ER 360 mg PO DAILY 90 caps 1RF 90 days
--- OUTSIDE RECORDS SUMMARY | 2025-07-20 10:56 | XMS_ITS | Clinical Summary ---
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 Name Role Phone Amrik Mendoza MD Primary Care Provider Surgical History Surgery Date Site/Laterality Comments OTHER SURGICAL HISTORY PROCEDURE: MS OSTEOTOMY SPINE PST/PSTLAT APPR 1 VRT SGM CRV; COMMENT: surgery X 2 OTHER SURGICAL HISTORY 1993 PROCEDURE: HISTORICAL TOTAL HYSTERECTOMY W/O BSO; COMMENT: left ovary TUBAL LIGATION PROCEDURE: HISTORICAL TUBAL LIGATION OTHER SURGICAL HISTORY 1999 PROCEDURE: MS ARTHROSCOPY TEMPOROMANDIBULAR JOINT SURGICAL; COMMENT: left SALPINGOOPHORECTOMY 02/08/11 PROCEDURE: MS LAPAROSCOPY W/RMVL ADNEXAL STRUCTURES; COMMENT: Serous cystadenoma [...] Recently Relevant to Health Maintenance Care Teams Window Shade Ring 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
== END 2025-07-20 11:16 | disposition home or self-care (01) ==
LOC: HO.HMCFM 09:33
PROVIDERS: PCP Family Medicine; Visit Provider Family Medicine
DX: I10 Essential (primary) hypertension (principal); R13.10 Dysphagia, unspecified; R68.2 Dry mouth, unspecified; H04.123 Dry eye syndrome of bilateral lacrimal glands; F41.9 Anxiety disorder, unspecified; F32.A Depression, unspecified

== ENCOUNTER 2025-08-04 11:00 | Outpatient (AMB) | payer OTHER, SELFPAY ==
[2025-08-04 11:06] VITALS: BP 120/98; PULSE 94; TEMP 37.1; O2SAT 97; BMI 40.6
--- NOTE | 2025-08-04 11:06 | AM.OFFWIN_ITS ---
Intake Vital Signs 08/04/25 11:06 Height 5 ft Weight 208 lb BMI 40.6 BP 120/98 H Blood Pressure Location Rt brachial Position Sitting Pulse 94 Pulse Source Pulse Oximeter Temp 98.7 F Temp Source Oral Pulse Oximetry (%) 97 Oxygen Delivery Method Room Air Comment High Distolic BP: didn't take her meds today. provider notified. Intake Visit Reasons: EP chest congestion cough Intake Note: pt presents with chest congestion with on/off dry and productive coughing, sinus congestion/fullness, ears feel full x1 wk-currently on Doxycycline 100mg BID prescribed from an provider through health insurance Patient Tobacco Use Status: Current everyday Tobacco user Allergies Seasonal Allergies Allergy (Severe, Verified 08/04/25 11:16) Itchy Eyes lisinopril Adverse Reaction (Severe, Verified 08/04/25 11:16) Cough pregabalin (From Lyrica) Adverse Reaction (Severe, Verified 08/04/25 11:16) Shortness of Breath celecoxib (From Celebrex) Adverse Reaction (Intermediate, Verified 08/04/25 11:16) Hypertension varenicline (From Chantix) Adverse Reaction (Intermediate, Verified 08/04/25 11:16) Depression Do you need a note to return to daycare/school/sports/work: No HPI HPI Comments History of Present Illness Details History - The patient is a 59-year-old female pr esenting with chest tightness and sinus pain and pressure that began approximately a week and a half ago. - She was evaluated via a telehealth ser vice and was initially told the condition was not bacterial. - She was given prednisone and she took that with no relief of her symptoms. - As symptoms persisted, she had a subse quent telehealth call and was prescribed doxycycline 100 mg twice daily, which she started last Sunday. - Her primary complaint is chest tightne ss, which is temporarily relieved by her inhaler, followed by a cough. - She has a history of asthma since l dh but denies a history of COPD. - This morning, she developed diarrhea, which she attributes to the antibiotic. - She denies fever, chills, ST, ear pain , CARTWRIGHT, fatigue or weakness. - She has not had a CXR or covid test. Physical Exam General: Cooperative, healthy appearing, comfortable and no acute distress Orientation/consciousness: Patient oriented x3 Limitations: No limitations Head: Normal to inspection Ears: Hearing grossly normal bilaterally, external ears normal and TM's normal bilaterally Nose: Normal external nose present, normal nares present, and no nasal discharge present. Face and sinus: Sinuses nontender to palpation. Mouth: Normal oral and palatal mucosa present and moist mucous membranes noted. Throat: Tonsils normal. Uvula is midline. Posterior oropharynx with erythema and no exudates. Eyes: Appearance normal, both eyes and all related structures Neck: Normal visual inspection, full ROM. No lymphadenopathy noted. Respiratory: Wheezing noted. Normal respiratory effort, able to speak in complete sentences. No respiratory distress, not tachypneic, no tripod positioning and no use of accessory muscles. Cardiovascular: Regular rate and rhythm. Normal S1 and S2. No m/r/g noted. Skin: No rashes or lesions noted Patient was informed and verbally consented to the use of an ambient scribe for clinic note documentation during this visit [facility] Medical History Difficulty urinating Empty sella turcica Polyarthralgia Raynauds phenomenon DDD (degenerative disc disease), cervical Mediastinal mass Asthma Chronic pain syndrome Costochondritis Thrombocytosis TMJ (temporomandibular joint syndrome) Numbness and tingling of left leg Tremors of nervous system Lyme disease Hypersomnia Snoring Hyperlipidemia HTN (hypertension) GERD (gastroesophageal reflux disease) Generalized headaches Back pain Arthritis Surgical History S/P placement of nerve stimulator History of esophagogastroduodenoscopy (EGD) (03/26/25) Mediastinal mass (11/08/23) History of mandibular surgery S/P cervical spinal fusion Hx of cervical spine surgery Hx of endoscopy Hx of colonoscopy History of salpingo-oophorectomy History of laparoscopy Hx of arthroscopy Hx of tubal ligation Hx of hysterectomy, total Hx of shoulder surgery Hx of knee surgery Family History Father Heart disease Cancer Prostate cancer Mother Dementia Congestive heart failure Social History Household Members: Spouse Housing: House Are you a primary care coordination manager to a significant other at home: No Do you presently have visiting nurse or other home services: No Alcohol intake: current Alcohol intake frequency: holidays/special occasions only Comment: COUNTS CORRECT Patient Tobacco Use Status: Current everyday Tobacco user Tobacco use type: Cigarette Cigarettes Per Day: 2 Years Smoked: 26 e-Cigarette/Vaping Use: Never Used Second Hand Smoke Exposure: No service: No Current occupational status: disabled Current occupational exposures/hazards: No Cognitive needs: No Hearing needs: No Vision needs: No Review of Systems Const All systems reviewed & are unremarkable except as noted in HPI and below Physical Exam Vital Signs: Last Vital Signs Temp 98.7 F 08/04/25 11:06 Pulse 94 08/04/25 11:06 BP 120/98 H 08/04/25 11:06 Pulse Ox 97 08/04/25 11:06 Oxygen Delivery Method Room Air 08/04/25 11:06 BMI result Body Mass Index 40.6 Office Procedures Nebulizer Treatment Nebulizer Treatment [id number]/MDI RX initial, or Nebulizer Subsequent Treatment Office Meds ipratropium 0.5 mg-albuterol 3 mg (2.5 mg base)/3 mL nebulization soln Performing Provider: Kiki Uriostegui PA-C Performing Location: [facility] Administered by: Kiki Uriostegui PA-C on 08/04/25 11:54 Dose Route Admin Location Dispensed Lot Number Expiration Date [facility] Home Service Technician 3 mL inhalation 3 mL H03/26/27 [id number] [employer] Assessment & Plan Assessment & Plan (1) URI with cough and congestion: Code(s): J06.9 - Acute upper respiratory infection, unspecified Plan Most likely asthma exacerbation vs viral illness vs CAP vs covid vs RSV vs flu nebulizer in the office today plan - A chest X-ray and COVID-19/influenza/RSV testing will be performed to further evaluate the cause of her symptoms, including ruling out pneumonia. - A Z-Mohan will be added to her current doxycycline regimen, as the combination serves as a treatment for pneumonia. - She was instructed to finish her current course of doxycycline and add the Z- Mohan. - A nebulizer treatment was administered in the office for immediate symptom relief. - A prescription for cough medicine will also be provided. - It was recommended that she increase her probiotic intake to twice daily to manage gastrointestinal symptoms. - will call with the results of the x-ray - follow up with PCP Orders: Orders SARS-CoV2/FLU/RSV Today R09.89 - Other specified symptoms and signs involving the circulatory and respiratory systems AMB Nebulizer Treatment Today R05.9 - Cough, unspecified XR chest 2V Today R05.9 - Cough, unspecified Medications: New benzonatate 100 mg PO bid-tid PRN 21 caps 0RF Cough 7 days azithromycin For 250 mg dose pack: take 500 mg today (day 1), then 250 mg for 4 days (days 2-5) PO 6 tabs 0RF prednisone 40 mg (2 x 20 mg) PO DAILY 10 tabs 0RF 5 days Coding Level of Care Code Est Pt Level 4 (62664) Diagnoses URI with cough and congestion J06.9 CPT Codes Nebulizer Treatment - Nebulizer Treatment, initial or subsequent: 41385- Nebulizer/MDI RX initial, or Nebulizer Subsequent Treatment ([id number])
== END 2025-08-04 12:38 | disposition home or self-care (01) ==
PROVIDERS: PCP Family Medicine; Visit Provider Physician Assistant Medical
DX: R05.9 Cough, unspecified (principal); J06.9 Acute upper respiratory infection, unspecified

== ENCOUNTER 2025-08-04 11:00 | Outpatient (REF) | payer OTHER, SELFPAY ==
--- NOTE | ~2025-08-04 | XR_ITS ---
EXAMINATION: XR CHEST CLINICAL INFORMATION: R05.9 - Cough, unspecified COMPARISON: Previous chest x-ray October 2023 TECHNIQUE: 2 views of the chest were obtained. FINDINGS: Lungs are clear. No consolidation or pulmonary edema. Cardiac and mediastinal contours are normal. No pleural effusion or pneumothorax. Spinal stimulator projects over the lower thoracic spinal canal. Left shoulder replacement. Postsurgical changes to the lower cervical spine. Degenerative changes of the thoracic spine. XR/XR chest 2V IMPRESSION: No evidence for acute disease in the chest. Electronically signed by: Cherri Ibrahim MD 08/04/2025 01:10 PM FOSTER
[2025-08-04 14:29] LABS: Resp Syncy Virus RNA Qual PCR NEGATIVE (Negative); SARS COV2 PCR INHOUSE NEGATIVE (Negative)
== END 2025-08-04 11:01 | disposition home or self-care (01) ==
LOC: HO.HMGCX 11:00
PROVIDERS: PCP Family Medicine; Visit Provider Physician Assistant Medical
DX: J06.9 Acute upper respiratory infection, unspecified (principal); R05.9 Cough, unspecified; R09.81 Nasal congestion; F17.210 Nicotine dependence, cigarettes, uncomplicated
CPT/HCPCS: 71046; 87637; 94640

== ENCOUNTER → 2025-08-04 12:23 | Outpatient (BNV) | payer OTHER, SELFPAY | PROVIDERS: PCP Family Medicine; Visit Provider Radiology Diagnostic Radiology | DX: R05.9 Cough, unspecified (principal) | CPT/HCPCS: 71046 ==

== ENCOUNTER 2025-08-14 15:03 | Outpatient (AMB) | payer OTHER, SELFPAY ==
--- NOTE | 2025-08-14 15:09 | A.OFFVIS_ITS ---
Vital Signs 3 08/14/25 15:13 Height 5 ft Weight 209 lb 2 oz BMI 40.8 BP 169/95 H Blood Pressure Location Rt brachial Position Sitting Pulse 94 Pulse Source Pulse Oximeter Pulse Oximetry (%) 99 Oxygen Delivery Method Room Air Intake Visit Reasons: Back pain Intake Note: Pain today 02/03 Electric System Operator Required: No Accompanied by: Self / Same As Patient Allergies Seasonal Allergies Allergy (Severe, Verified 08/14/25 15:15) Itchy Eyes lisinopril Adverse Reaction (Severe, Verified 08/14/25 15:15) Cough pregabalin (From Lyrica) Adverse Reaction (Severe, Verified 08/14/25 15:15) Shortness of Breath celecoxib (From Celebrex) Adverse Reaction (Intermediate, Verified 08/14/25 15:15) Hypertension varenicline (From Chantix) Adverse Reaction (Intermediate, Verified 08/14/25 15:15) Depression HPI Comments Details: History of Present Illness The patient is a 59 year old female presenting for evaluation of upper abdominal pain. She reports the pain began after a surgical procedure one and a half years ago to remove a mass from her heart, lung, and a lymph node. The pain is described as a squeezing sensation under the left side of her sternum, feeling as if someone is stepping on her, which radiates to her back and can cause dyspnea. The symptoms are most prominent when sitting and are not affected by eating. Her pulmonology provider suspects nerve damage but has ordered a chest CT scan. This chest pain is distinct from her back pain, for which she has a spinal cord stimulator and reports good relief. The patient also is being evaluated for Sjogren's syndrome, with an ENT appointment scheduled in January. She recently had a respiratory infection and noted that a course of prednisone helped calm the chest pain. She takes gabapentin but was unable to tolerate Lyrica. Pain Description - Location: Pain is located under the left sternal area and radiates to the back. - Onset: The pain began after a mass resection surgery one and a half years ago. - Quality: Described as a severe squeezing sensation, similar to someone stepping on her chest. - Associated Symptoms: Causes difficulty breathing, a feeling of heaviness in the chest, and feeling winded. - Exacerbating Factors: Pain is worse when sitting. - Relieving Factors: A recent course of prednisone for a respiratory infection provided some relief. - Impact: The pain interrupts her life and has prevented her from walking for exercise. Pain Management - Analgesia: The patient is taking gabapentin. - Affect: The pain has interrupted her life. - Adverse Effects: She was unable to tolerate Lyrica in the past. - Activities of Daily Living: The pain has interfered with her ability to walk and exercise. - Aberrant Drug Related Behaviors: The patient reports taking up to five anti- inflammatory pills at a time, and was counseled against this practice. Results - Tests: A chest CT scan is planned for September 12. - Tests: An evaluation for Sjogren's syndrome with an ENT is scheduled for January. [facility] Medical History Difficulty urinating Empty sella turcica Polyarthralgia Raynauds phenomenon DDD (degenerative disc disease), cervical Mediastinal mass Asthma Chronic pain syndrome Costochondritis Thrombocytosis TMJ (temporomandibular joint syndrome) Numbness and tingling of left leg Tremors of nervous system Lyme disease Hypersomnia Snoring Hyperlipidemia HTN (hypertension) GERD (gastroesophageal reflux disease) Generalized headaches Back pain Arthritis Surgical History S/P placement of nerve stimulator History of esophagogastroduodenoscopy (EGD) (03/26/25) Mediastinal mass (11/08/23) History of mandibular surgery S/P cervical spinal fusion Hx of cervical spine surgery Hx of endoscopy Hx of colonoscopy History of salpingo-oophorectomy History of laparoscopy Hx of arthroscopy Hx of tubal ligation Hx of hysterectomy, total Hx of shoulder surgery Hx of knee surgery Family History Father Heart disease Cancer Prostate cancer Mother Dementia Congestive heart failure Social History Household Members: Spouse Housing: House Are you a primary career development coordinator/teacher to a significant other at home: No Do you presently have visiting nurse or other home services: No Alcohol intake: current Alcohol intake frequency: holidays/special occasions only Comment: COUNTS CORRECT Patient Tobacco Use Status: Current everyday Tobacco user Tobacco use type: Cigarette Cigarettes Per Day: 2 Years Smoked: 26 e-Cigarette/Vaping Use: Never Used Second Hand Smoke Exposure: No service: No Current occupational status: disabled Current occupational exposures/hazards: No Cognitive needs: No Hearing needs: No Vision needs: No Review of Systems Narrative Review of Systems - Cardiovascular: Reports left-sided upper abdominal pain that radiates to the back. - Respiratory: Reports dyspnea and feeling winded with pain. - Gastrointestinal: Denies symptoms; pain is not related to eating. - Musculoskeletal: Reports rib soreness. - ENT: Reports dry mouth. Physical Exam Exam Exam: PGeneral: awake, alert, oriented. Answers questions appropriately. Fully engaged in examination. Skin: warm, dry, intact HEENT: Normocephalic. Hearing intact. Cardiac: External chest normal in appearance. Respiratory: No cough, audible wheezing or stridor. Abdomen: without gross distension. MS: No obvious swelling or deformities. Neurological: Oriented to person, place, time and situation. Thought process intact. Psychiatric: Appropriate mood and affect. Good judgment and insight. Vital Signs: Last Vital Signs Pulse 94 08/14/25 15:13 BP 169/95 H 08/14/25 15:13 Pulse Ox 99 08/14/25 15:13 Oxygen Delivery Method Room Air 08/14/25 15:13 BMI result Body Mass Index 40.8 Results Reviewed Results Reviewed: 03/17/25 MRI lumbar spine Findings: Conus terminates at L1/L2 level. Unremarkable visualized cord, conus medullaris and cauda equina. Multilevel disc dehydration and severe L5/S1 disc narrowing not significantly changed from prior study. Posterior annular disc fissures noted at some of the lumbar levels. New [id number] Modic type 1 changes at L4/L5. Mild Modic type 1 changes at L2/L3. Modic type 2 changes at L5/S1. No acute fracture. Unremarkable paravertebral soft tissues and visualized abdomen. L5/S1: No significant change in grade 1 retrolisthesis, pseudodisc bulge, and [id number]-kblldqah bilateral neural foraminal stenosis. L4/L5: No significant change in grade 1 retrolisthesis and predominantly right-sided disc bulge versus broad-based disc protrusion associated with uxmq-lj-ekzdaxvc right and mild left neural foraminal stenosis. L3/L4: Grade 1 retrolisthesis and up to 5 mm (AP dimension) left subarticular/neural foraminal (inferior aspect) disc herniation associated with oxwk-fw-tgddqski left neural foraminal and mild left subarticular recess stenosis as well as mild right neural foraminal compromise as before. L2/L3: New small left central disc herniation without significant central canal compromise. Grade 1 retrolisthesis as before. L1/L2: Nonprogressive small left central disc protrusion without significant central canal compromise as before. T12/L1: No significant central canal or neural foraminal stenosis. IMPRESSION: No evidence of progressive central canal, lateral recess, neural foraminal stenosis with mostly chronic changes as described above 04/10/2024 MRI OF THE THORACIC SPINE WITHOUT CONTRAST MRI OF THE LUMBAR SPINE WITHOUT CONTRAST CLINICAL INFORMATION: Chronic pain syndrome. Postlaminectomy syndrome. Bilateral lower extremity weakness and numbness feeling 6 months of conservative treatment. COMPARISON: Thoracic spine MRI September 08, 2021. TECHNIQUE: Multiplanar multisequence MR imaging of the thoracic and lumbar spine obtained without contrast. FINDINGS: THORACIC SPINE MRI: There are 12 rib bearing thoracic type vertebral bodies. Mild rightward convex sclerotic curvature of the upper thoracic spine. Thoracic alignment is otherwise maintained. There is multilevel degenerative disc disease and hypertrophic facet arthropathy throughout the thoracic spine that remains similar to the September 08, 2021 thoracic spine MRI. Small paracentral disc protrusions continue to mildly narrow the central canal at the T6-T7, T7-T8, and T8-T9 levels. There is no high-grade foraminal stenosis within the thoracic spine. There are partially imaged postoperative changes following ACDF at C6-C7. There is no thoracic cord compression and there are no thoracic cord signal changes when accounting for artifact. LUMBAR SPINE MRI: There are 5 nonrib-bearing lumbar-type vertebral bodies. S1 is lumbarized, showing rudimentary disc with S2. Grade 1 retrolisthesis of L2 on L3. There is severe disc line loss at L5-S1 and there is mild disc volume loss at the remaining lumbar levels. There is disc desiccation at all lumbar levels. There are Modic type II endplate signal changes at L5-S1. Modic type I endplate signal changes at L4-L5. No additional bone marrow edema. No acute fractures. Conus terminates at the L1-L2 level. There is bilateral perinephric stranding. L1-L2: A small shallow left paracentral disc protrusion minimally indents the ventral thecal sac without central canal stenosis. There is no foraminal stenosis. L2-L3: Grade 1 retrolisthesis. Shallow left paracentral disc protrusion minimally indents the ventral thecal sac. No foraminal stenosis. L3-L4: There is a left paracentral/left lateral disc protrusion that contacts the traversing left L4 nerve root within the left subarticular zone and results in [id number] left-sided foraminal stenosis without exiting nerve root compression. No central canal and no right foraminal stenosis. L4-L5: There is a large right foraminal/extraforaminal disc protrusion that results in moderate to severe right-sided foraminal stenosis and mass effect on the foraminal and extra foraminal segments of the exiting right L4 nerve root. Left lateral disc osteophyte results in moderate left-sided foraminal stenosis and mass effect on the exiting left L4 nerve root at the left foraminal/extraforaminal junction. There is no central canal stenosis. L5-S1: Shallow disc protrusion minimally indents the ventral thecal sac. Disc osteophyte and advanced facet arthropathy result in moderate to severe bilateral foraminal stenosis with compression of the exiting L5 nerve roots bilaterally. IMPRESSION: * Mild to moderate thoracic spondylosis. No severe central canal stenosis and no severe foraminal stenosis within the thoracic spine. There are partially imaged postoperative changes following ACDF at C6-C7. * At L3-L4, there is a left paracentral/left lateral disc protrusion that contacts the traversing left L4 nerve root within the left subarticular zone and results in pbpp-uh-pognoekh left-sided foraminal stenosis without exiting nerve root compression. * At L4-L5, there is a large right foraminal/extraforaminal disc protrusion that results in moderate to severe right-sided foraminal stenosis and mass effect on the foraminal and extra foraminal segments of the exiting right L4 nerve root. Left lateral disc osteophyte results in moderate left-sided foraminal stenosis and mass effect on the exiting left L4 nerve root at the left foraminal/extraforaminal junction. * At L5-S1, multifactorial degenerative changes result in moderate to severe bilateral foraminal stenosis with compression of the exiting L5 nerve roots bilaterally. * S1 shares a rudimentary disc with S2. 02/01/2024 XR/XR lumbar spine 2-3V FINDINGS: Mild dextroscoliosis of the lumbar spine. Surgical clips in the pelvis. Facet arthritis in the lower lumbar spine. Moderate multilevel lumbar spondylosis with moderate loss of disc space height at L2-L3, L3-L4, L4-L5 and marked loss of disc space at L5-S1. IMPRESSION: Moderate multilevel lumbar spondylosis. 09/08/2021 MRI Thoracic Assessment & Plan Assessment & Plan (1) Status post video-assisted thoracoscopic surgery (VATS): Code(s): Z98.890 - Other specified postprocedural states Category: Surgical (2) Pleuritic pain: Code(s): R07.81 - Pleurodynia Category: Medical (3) Chronic pain syndrome: Code(s): G89.4 - Chronic pain syndrome Category: Medical (4) Lumbar radiculopathy: Code(s): M54.16 - Radiculopathy, lumbar region Category: Medical (5) Muscle weakness of proximal extremity: Code(s): M62.81 - Muscle weakness (generalized) Category: Medical (6) Lumbar spondylosis: Code(s): M47.816 - Spondylosis without myelopathy or radiculopathy, lumbar region Category: Medical (7) Numbness and tingling of left leg: Code(s): R20.0 - Anesthesia of skin; R20.2 - Paresthesia of skin Category: Medical (8) Post laminectomy syndrome: Code(s): M96.1 - Postlaminectomy syndrome, not elsewhere classified Category: Medical Plan Plan The patient presents with severe left-sided upper abdominal pain, likely neuropathic in origin, post-thoracic surgery one and a half years ago. The immediate plan is to await the results of the chest CT scan ordered by her optical mechanic, which is scheduled for September 12. This imaging is necessary to rule out any underlying structural abnormalities or other causes for her symptoms. If the CT scan is unremarkable, we will consider a revision of her spinal cord stimulator. This would involve moving one of the leads to a higher position to provide stimulation and coverage for her chest and sternal pain. The patient has been counseled on the risks of taking excessive amounts of anti-inflammatory medications, including potential kidney failure and stomach ulcers. She will follow up after the CT scan is completed and she has discussed the results with her director of therapy services. Patient was informed and verbally consented to the use of an ambient scribe for clinic note documentation during this visit. Discussion Notes I discussed with the patient that her pain is likely related to nerve irritation from her surgery one and a half years ago. I explained that the first step is to review the results of her upcoming chest CAT scan to ensure there are no other underlying issues. If the scan is clear, I informed her that we can consider a revision of her spinal cord stimulator by moving one of the leads higher to cover the painful area. I also advised her against taking high doses of anti- inflammatory medications due to the risk of kidney damage and stomach ulcers. I instructed her to follow up with me after she has her CAT scan and has spoken to the ordering provider. Patient Instructions - Please proceed with your scheduled chest CAT scan on September 12. - Follow up with our office after you have the CAT scan and have talked about the results with your optical mechanic. - Do not take large doses of anti-inflammatory medications like ibuprofen, as this can be harmful to your kidneys and stomach. - If the CAT scan does not show any new problems, we will discuss revising your spinal cord stimulator to help control this new chest pain. Coding Level of Care Code Est Pt Level 3 (93397) Add On Problem Visit Only Diagnoses Status post video-assisted thoracoscopic surgery (VATS) Z98.890 Pleuritic pain R07.81 Chronic pain syndrome G89.4 Lumbar radiculopathy M54.16 Muscle weakness of proximal extremity M62.81 Lumbar spondylosis M47.816 Numbness and tingling of left leg R20.0; R20.2 Post laminectomy syndrome M96.1
[2025-08-14 15:13] VITALS: BP 169/95; PULSE 94; O2SAT 99; BMI 40.8
--- OUTSIDE RECORDS SUMMARY | 2025-08-14 16:18 | XMS_ITS | Clinical Summary ---
Author Organization [facility] ity Address [address] [place] [address] Care Team Providers Care Fitter Helper Name Role Phone Amrik Mendoza MD Primary Care Provider Surgical History Surgery Date Site/Laterality Comments OTHER SURGICAL HISTORY PROCEDURE: IN OSTEOTOMY SPINE PST/PSTLAT APPR 1 VRT SGM CRV; COMMENT: surgery X 2 OTHER SURGICAL HISTORY 1993 PROCEDURE: HISTORICAL TOTAL HYSTERECTOMY W/O BSO; COMMENT: left ovary TUBAL LIGATION PROCEDURE: HISTORICAL TUBAL LIGATION OTHER SURGICAL HISTORY 1999 PROCEDURE: IN ARTHROSCOPY TEMPOROMANDIBULAR JOINT SURGICAL; COMMENT: left SALPINGOOPHORECTOMY 02/08/11 PROCEDURE: IN LAPAROSCOPY W/RMVL ADNEXAL STRUCTURES; COMMENT: Serous cystadenoma [...] on file Sexual Orientation Not on file Last Filed Vital Signs Vital Sign Reading [...] Recently Relevant to Health Maintenance Care Teams Fitter Helper Relationship Specialty Start Date End Date Amrik Mendoza MD [address] [place] [address] Dr Tra MA PCP - General 10/23/23
== END 2025-08-14 15:40 | disposition home or self-care (01) ==
LOC: HO.PMC 15:04
PROVIDERS: PCP Family Medicine; Visit Provider Registered Nurse Emergency
DX: Z98.890 Other specified postprocedural states (principal); R07.81 Pleurodynia; G89.4 Chronic pain syndrome; M54.16 Radiculopathy, lumbar region; M62.81 Muscle weakness (generalized); M47.816 Spondylosis without myelopathy or radiculopathy, lumbar region; R20.0 Anesthesia of skin; R20.2 Paresthesia of skin; M96.1 Postlaminectomy syndrome, not elsewhere classified
CPT/HCPCS: 99213